=== PATIENT | female | born 1960 | race Caucasian/White ===

== ENCOUNTER 2018-03-17 15:10 | Emergency (ER) | payer MEDICARE, SELFPAY ==
[2018-03-17 15:19] VITALS: BP 195/83; PULSE 97; RESP 18; TEMP 36.6; O2SAT 97
[2018-03-17 15:43] LABS: Bilirubin Negative (Negative); Blood Trace-intact (Negative); Clarity Clear; Glucose Negative (Negative); Ketones Negative (Negative); Leukocyte Esterase Negative (Negative); Nitrite Negative (Negative); Specific Gravity 1.015 (1.005-1.025); Urobilinogen 0.2 EU/dL (Up TO 0.2)
[2018-03-17 15:53] LABS: Bacteria Rare HPF (Negative); C & S Indicated? No; Casts Negative LPF (Negative); Crystals Negative HPF (Negative); Epithelial Cells Rare HPF (Negative); Mucus Negative (Negative); Other Cells Negative (Negative); RBC 0-2 (0-2); WBC Negative HPF (0-5)
[2018-03-17 17:05] LABS: Abs Immature Grans 0.01 k/cumm (0.0-0.09); Absolute Basophil Count 0.02 k/cumm (0.0-0.2); Absolute Eosinophil Count 0.08 k/cumm (0.0-0.7); Absolute Lymphocyte Count 1.18 k/cumm (1.2-3.4); Absolute Neutrophil Count 3.98 k/cumm (1.2-6.7); Basophils % 0.4; Eosinophils % 1.4; HCT 42.4 % (36.0-46.0); Immature Grans % 0.2; Lymphocytes % 21.2; Mean Corpuscular Hemoglobin 29.7 pg (27.0-33.0); Mean Corpuscular Volume 89.8 fL (80-95); Mean Platelet Volume 9.2 fL (8.0-11.0); Monocytes % 5.4; Neutrophils % 71.4; Platelet Count 197 x1000/uL (130-400); RBC 4.72 m/cumm (4.00-5.20); RBC Distribution Width 12.4 % (11.7-14.6); White Blood Cell Count 5.57 k/cumm (4.4-10.8)
--- NOTE | 2018-03-17 17:25 | DI.RAD_ITS ---
SYMPTOMS/DIAGNOSIS: MID BACK PAIN ACUTE ABDOMINAL SERIES: Comparison is 06/18/17. The heart size and pulmonary vasculature are within normal limits. No focal consolidating infiltrates are seen. No effusions or pneumothoraces are identified. The appearance of the left lung base is unchanged compared to the prior examination and is likely chronic. There are surgical clips in the right upper quadrant of the abdomen, likely reflecting prior cholecystectomy. There is a moderate amount of retained stool in the colon. No evidence of bowel obstruction, organomegaly or pneumoperitoneum. There is an S-type scoliosis of the thoracolumbar spine. Degenerative changes are seen throughout the spine. Degenerative changes are seen at the hips, right greater than left. There are also degenerative changes at the sacroiliac joints, right greater than left. IMPRESSION: 1. No acute pulmonary process. 2. No evidence of an acute abdomen.
[2018-03-17 17:33] LABS: ALT 33 U/L (12-78); AST 22 U/L (15-37); Albumin 3.8 g/dL (3.4-5.0); Alkaline Phosphatase 106 U/L (46-116); BUN 10 mg/dL (7-18); Bilirubin, Total 0.3 mg/dL (0.2-1.0); CREATININE 0.86 mg/dL (0.55-1.02); Calcium 8.8 mg/dL (8.5-10.1); Chloride 102 mmol/L (98-107); Glucose 101 mg/dL (70-100); Lipase 59 U/L (73-393); Potassium 3.8 mmol/L (3.5-5.1); Sodium 139 mmol/L (136-145); Total Protein 7.1 g/dL (6.4-8.2)
--- NOTE | 2018-03-17 17:38 | DI.VRAD_ITS ---
EXAM: XR Abdomen 2 Views With XR Chest CLINICAL HISTORY: 57 years old, female; Pain; Abdominal pain; Generalized; Patient HX: Pain, mid back. TECHNIQUE: Frontal view of the chest, frontal view of the abdomen/pelvis and upright or decubitus view of the abdomen. COMPARISON: CR CHEST 2 VIEWS PA,LAT 06/18/2017 8:57 AM FINDINGS: Lungs: Minimal hazy density in the left lateral lung base, likely epicardiac fat. No consolidation. Unremarkable pulmonary vessels. Pleural space: No pleural effusion or pneumothorax. Heart: Unremarkable cardiac silhouette. Mediastinum: Unremarkable. Intraperitoneal space: No free air. Gastrointestinal tract: Unremarkable. No dilation. Organs: Status post cholecystectomy. Bones/joints: Degenerative spondylosis of the thoracic and lumbar spine. Mild scoliosis of the thoracic and lumbar spine. 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 IMPRESSION: 1. No acute abnormality. 2. Hazy density in the left lateral lung base, likely epicardiac fat. 3. Degenerative spondylosis of the thoracic and lumbar spine with mild scoliosis. Dictated and Authenticated by: Saúl Gann MD. Ordering:TIMOTHY RONDON MD
[2018-03-17] MEDS: Lidocaine 5% Patch 1 PATCH (18:02)
--- NOTE | 2018-03-17 18:09 | ED.GENADUL_ITS ---
Discharge Plan Disposition Patient Disposition: HOME Condition: Good Discharge Details Chief Complaint: Nk/Back Pain Clinical Impression: Back pain Primary Care Provider: Chanel Pastrana ED Provider: Tay Padilla Home Meds and New Rx's Prescriptions: Continue methadone 10 MG/5 ML solution 96 mg PO DAILY RF: 0 diltiazem HCl [Taztia XT] 240 MG capsule,extended release 24 hr 180 mg PO DAILY RF: 0 levothyroxine 25 MCG tablet 25 mcg PO DAILY RF: 0 mirtazapine 45 MG tablet 45 mg PO DAILY RF: 0 levothyroxine 200 MCG tablet 200 mcg PO DAILY RF: 0 zolpidem 5 MG tablet 5 mg PO HS RF: 0 mirtazapine 15 MG tablet 15 mg PO DAILY RF: 0 docusate sodium [Dulcolax Stool Softener (dss)] 100 MG capsule 200 mg PO DAILY RF: 0 simvastatin 10 MG tablet 10 mg PO DAILY RF: 0 promethazine [Phenadoz] 25 MG suppository 25 mg [place] PRN RF: 0 dexlansoprazole [Dexilant] 60 mg Capsule,Biphase Delayed Releas 1 tab PO DAILY RF: 0 lisinopril 2.5 mg Tablet 1 tab PO DAILY RF: 0 lorazepam 1 MG tablet 1 mg PO Q6H PRN PRNQty: 14 RF: 0 Discharge Instructions Instructions: Back Pain (ED) Additional Instructions: Feel free to return to the emergency department for any new or worsening symptoms. Otherwise you may continue to use your [id number] ibuprofen for discomfort and zdbn-[id number] lidocaine patches or cream if this also helps relieve your symptoms. If not improving in the next couple weeks also follow-up with your primary care provider for reassessment Referrals: Chanel Pastrana [Primary Care Provider] - (As needed for reassessment) Discharge Data Discharge Date/Time-TO BE ENTERED AT DEPARTURE: 03/17/18 18:20 Medical Decision Making Patient presenting to the emergency department for months of intermittent back pain. Initially she states that she thought it was her kidneys but is unsure. Patient does state that her mentally bowel movements seem to either help her back pain or worsen her back pain. Patient denies any fever chills, saddle anesthesia, severe significant changes in bowel movements including incontinence /constipation and patient denies any urinary retention or incontinence. Physical exam shows soft tissue tenderness to the left lumbar spine but otherwise unremarkable exam. Patient has no signs of emergent back pain including cauda equina, epidural abscess, major injury or trauma. We feel it is odd that bowel movements seem to change patient's discomfort given physical exam findings that are more suggestive of musculoskeletal nature of pain but plan to check labs and perform radiological imaging to rule out any other possible sources. Pending results patient given lidocaine patch otherwise she states that her discomfort level is tolerable at the moment After review of results of labs and x-ray which are unremarkable I feel that this truly is more muscular skeletal in nature and patient was encouraged to continue to use appropriate [id number] pain control including lidocaine patches. Patient was informed that she should follow-up with her primary care provider for reassessment as needed or if not improving and there is possible consideration of need of physical therapy to see if this also helps. After discussion of diagnosis and plan of care patient has no further needs, questions , or concerns and states clear understanding to return to the emergency department for any worsening symptoms. Lab Data Lab results reviewed: Yes I reviewed the patient's lab results. HPI General Date/Time Provider Initiated Documentation: 03/17/18 15:51 . Limitations to Documentation: no limitations . Information obtained by: patient . History of Present Illness 57 year old F presents to the emergency department with the chief complaint of back pain, described as moderate, with intensity rated at 4. Quality is described as aching and sharp, and is localized to the back and left. Patient started experiencing this month(s) (2) and it has been intermittent. Related Data Home Medications Medication Instructions Recorded Confirmed diltiazem HCl [Taztia XT] 180 mg PO DAILY tab-cap 01/17/13 03/17/18 levothyroxine 25 mcg PO DAILY tab-cap 01/17/13 03/17/18 levothyroxine 200 mcg PO DAILY tab-cap 01/17/13 03/17/18 methadone 96 mg PO DAILY 01/17/13 03/17/18 mirtazapine 15 mg PO DAILY tab-cap 01/17/13 03/17/18 mirtazapine 45 mg PO DAILY tab-cap 01/17/13 03/17/18 zolpidem 5 mg PO HS 01/17/13 03/17/18 docusate sodium [Dulcolax Stool 200 mg PO DAILY 08/13/13 10/05/18 Softener (dss)] simvastatin 10 mg PO DAILY 03/12/13 03/17/18 promethazine [Phenadoz] 25 mg [place] PRN 03/15/14 03/17/18 lorazepam 1 mg PO Q6H PRN PRN #14 tab 11/05/16 03/17/18 dexlansoprazole [Dexilant] 1 tab PO DAILY 03/17/18 03/17/18 lisinopril 1 tab PO DAILY 03/17/18 03/17/18 Previous Rx's Medication Instructions Recorded lorazepam 1 mg PO Q6H PRN PRN #14 tab 11/05/16 Allergies Allergy/AdvReac Type Severity Reaction Status Date / Time No Known Allergies Allergy Unverified 03/17/18 15:23 General Stated Complaint: Nk/Back Pain PAULINE: 3 Review of Systems Constitutional Denies chills and Denies fever(s) Cardiovascular Denies chest pain and Denies dyspnea on exertion Respiratory Denies dyspnea on exertion Gastrointestinal Denies abdominal pain, Denies change in bowel habits, Denies constipation, Denies diarrhea, Denies loose stools, Denies nausea, Denies vomiting and Reports other Genitourinary Denies difficulty voiding, Denies post void dribbling and Denies urinary incontinence Musculoskeletal Reports as per HPI and Reports back pain Neurologic Denies sensory deficit PFSH Medical History GERD (gastroesophageal reflux disease) (Chronic) Hypertension (Chronic) Hypothyroid (Chronic) Social History Smoking/Tobacco Use Status: Former Tobacco Use Exam Const General: cooperative and no acute distress Orientation: alert, awake and oriented x3 Neck Neck: normal visual inspection, full ROM and no meningeal signs Resp Effort & Inspection: normal respiratory effort Auscultation: clear to auscultation bilaterally Cardio Rate: regular rate Rhythm: regular rhythm Heart Sounds: S1 normal and S2 normal GI Palpation: no hepatosplenomegaly, no aortic enlargement, no masses and no pulsatile masses Back/Spine/Pelvis Back: no CVA tenderness Cervical Spine: normal cervical lordosis and No cervical spinal tenderness Thoracic/Lumbar Spine: pain with thoraco-lumbar ROM, paraspinal tenderness ( Left lower lumbar) and No lumbar spinal tenderness Pelvis: no pain with anterior-posterior compression, no pain with lateral compression, buttock tenderness on the right and sciatic notch tenderness on the right Neuro General: alert, awake and oriented x3 DTR's: Rt Patellar: 2+, Lt Patellar: 2+, Rt Ankle: 2+ and Lt Ankle: 2+ Extrem Right lower extremity: hip/thigh Details: normal to inspection, knee Details: normal to inspection and lower leg Details: normal to inspection Course Vital Signs Temperature 36.6 C 03/17/18 15:19 Pulse 97 H 03/17/18 15:19 Respiratory Rate 18 03/17/18 15:19 Blood Pressure 195/83 H 03/17/18 15:19 Pulse Oximetry 97 03/17/18 15:19 Temperature 36.6 C 03/17/18 15:19 Temperature Source Skin 03/17/18 15:19 Pulse 97 H 03/17/18 15:19 Respiratory Rate 18 03/17/18 15:19 Respiratory Effort Non-Labored 03/17/18 15:21 Blood Pressure 195/83 H 03/17/18 15:19 Pulse Oximetry 97 03/17/18 15:19 Pain Level 2 03/17/18 15:19 Lab/Test Results Lab/Test Results: Laboratory Tests Range/Units 03/17/18 03/17/18 03/17/18 15:33 16:58 16:58 WBC (4.4-10.8) k/cumm 5.57 RBC (4.00-5.20) m/cumm 4.72 Hgb (12.0-15.5) g/dL 14.0 Hct (36.0-46.0) % 42.4 MCV (80-95) fL 89.8 MCH (27.0-33.0) pg 29.7 MCHC (32.0-36.0) g/dL 33.0 RDW (11.7-14.6) % 12.4 Plt Count (130-400) x1000/uL 197 MPV (8.0-11.0) fL 9.2 Immature Gran % 0.2 Neutrophils % 71.4 Lymphocytes % 21.2 Monocytes % 5.4 Eosinophils % 1.4 Basophils % 0.4 Absolute Neutrophils (1.2-6.7) k/cumm 3.98 Absolute Lymphocytes (1.2-3.4) k/cumm 1.18 L Absolute Monocytes (0.11-0.7) k/cumm 0.30 Absolute Eosinophils (0.0-0.7) k/cumm 0.08 Absolute Basophils (0.0-0.2) k/cumm 0.02 Sodium (136-145) mmol/L 139 Potassium (3.5-5.1) mmol/L 3.8 Chloride (98-107) mmol/L 102 Carbon Dioxide (21.0-32.0) mmol/L 30.0 Anion Gap (3-11) mmol/L 7.0 BUN (7-18) mg/dL 10 Creatinine (0.55-1.02) mg/dL 0.86 Estimated GFR/1.73 m2 (mL/min/1.73m2) >= 60.00 Glucose (70-100) mg/dL 101 H Calcium (8.5-10.1) mg/dL 8.8 Total Bilirubin (0.2-1.0) mg/dL 0.3 AST (15-37) U/L 22 ALT (12-78) U/L 33 Alkaline Phosphatase (46-116) U/L 106 Total Protein (6.4-8.2) g/dL 7.1 Albumin (3.4-5.0) g/dL 3.8 Lipase (73-393) U/L 59 L Urine Color (Yellow) Yellow Urine Clarity Clear Urine pH (5-8) 6.0 Ur Specific [place] (1.005-1.025) 1.015 Urine Protein (Negative) mg/dL Negative Urine Ketones (Negative) mg/dL Negative Urine Blood (Negative) Trace-intact H Urine Nitrite (Negative) Negative Urine Bilirubin (Negative) Negative Urine Urobilinogen (Up TO 0.2) EU/dL 0.2 Ur Leukocyte Esterase (Negative) Negative Urine RBC (0-2) 0-2 Urine WBC (0-5) HPF Negative Ur Epithelial Cells (Negative) HPF Rare Urine Crystals (Negative) HPF Negative Urine Bacteria (Negative) HPF Rare Urine Casts (Negative) LPF Negative Urine Mucus (Negative) Negative Urine Other (Negative) Negative Ur Culture Indicated? No Urine Glucose (Negative) mg/dL Negative
[2018-03-17 18:17] VITALS: BP 120/80; PULSE 80; RESP 18; TEMP 36.8; O2SAT 96
== END 2018-03-17 18:20 | disposition home or self-care (01) ==
PROVIDERS: Emergency Provider Nurse Practitioner Family; PCP Internal Medicine
DX: M54.5 Low back pain (principal); I10 Essential (primary) hypertension
CPT/HCPCS: 36415; 80053; 83690; 99283; 74022; 81003; 81015; 85025

== ENCOUNTER 2019-07-21 07:55 | Emergency (ER) | payer MEDICARE, SELFPAY ==
[2019-07-21 08:01] VITALS: BP 162/78; PULSE 95; RESP 16; TEMP 36.8; O2SAT 93
--- NOTE | 2019-07-21 08:10 | W.ED.GENAD ---
Discharge Plan Disposition Patient Disposition: HOME Condition: Stable Discharge Details Chief Complaint: Orthopedic Clinical Impression: Distal radius fracture Primary Care Provider: Beena Patel ED Provider: Jared Redman Home Meds and New Rx's Prescriptions: Continued methadone 10 MG/5 ML solution 96 mg PO DAILY RF: 0 diltiazem HCl [Taztia XT] 240 MG capsule,extended release 24 hr 180 mg PO DAILY RF: 0 levothyroxine 25 MCG tablet 25 mcg PO DAILY RF: 0 mirtazapine 45 MG tablet 45 mg PO DAILY RF: 0 levothyroxine 200 MCG tablet 200 mcg PO DAILY RF: 0 zolpidem 5 MG tablet 5 mg PO HS RF: 0 mirtazapine 15 MG tablet 15 mg PO DAILY RF: 0 docusate sodium [Dulcolax Stool Softener (dss)] 100 MG capsule 200 mg PO DAILY RF: 0 simvastatin 10 MG tablet 10 mg PO DAILY RF: 0 promethazine [Phenadoz] 25 MG suppository 25 mg [place] PRN RF: 0 Dexilant 60 mg Capsule,Biphase Delayed Releas 1 tab PO DAILY RF: 0 lisinopril 2.5 mg Tablet 1 tab PO DAILY RF: 0 lorazepam 1 MG tablet 1 mg PO Q6H PRN PRNQty: 14 RF: 0 Discharge Instructions Instructions: Wrist Fracture in Adults (ED) Additional Instructions: As we discussed, we will treat you for a small fracture and have you follow-up in orthopedic clinic for recheck. Elevate the arm above the level of the heart to reduce pain and swelling. You may apply ice through the splint to reduce swelling and discomfort. Tylenol as needed for pain. Continue your regular medications. Please call the orthopedic office [phone] to establish a follow-up appointment time. Return to the ER for any acute concerns. Medical Decision Making 59-year-old female presents with right wrist pain, swelling, bruising after slip and fall on in which she fell on an outstretched hand. She does have distal radius tenderness, but normal motor and sensory testing. Ice applied to area, patient offered analgesia which she deferred. Referred for x-ray which I believe shows a lucency of distal radius consistent with acute fracture, but the x-ray was read negative by Dr. Carmelita Null. I discussed this with the patient and placed her in a volar plaster splint and will have her follow-up in orthopedics for recheck. HPI General Mode of arrival: ambulatory. Date/Time Provider Initiated Documentation: 07/21/19 08:03. Limitations to Documentation: no limitations. Information obtained by: patient. History of Present Illness 59 year old F presents to the emergency department with the chief complaint of Right wrist pain, bruising, swelling after fall , described as moderate, Quality is described as aching and dull, and is localized to the right and upper extremity. Patient reports no radiation. Patient started experiencing this day(s) and it has been constant. Rest improves symptom(s), Movement worsens symptoms . Patient notes no other symptoms. and other (No other injury, no weakness, no numbness.). Patient did receive the following treatments prior to arrival, other (Will bandage) Related Data Home Medications Medication Instructions Recorded Confirmed diltiazem HCl [Taztia XT] 180 mg PO DAILY tab-cap 01/17/13 07/21/19 levothyroxine 25 mcg PO DAILY tab-cap 01/17/13 07/21/19 levothyroxine 200 mcg PO DAILY tab-cap 01/17/13 07/21/19 methadone 96 mg PO DAILY 01/17/13 07/21/19 mirtazapine 15 mg PO DAILY tab-cap 01/17/13 07/21/19 mirtazapine 45 mg PO DAILY tab-cap 01/17/13 07/21/19 zolpidem 5 mg PO HS 01/17/13 07/21/19 docusate sodium [Dulcolax Stool 200 mg PO DAILY 01/23/13 07/21/19 Softener (dss)] simvastatin 10 mg PO DAILY 03/12/13 07/21/19 promethazine [Phenadoz] 25 mg [place] PRN 03/15/14 07/21/19 lorazepam 1 mg PO Q6H PRN PRN #14 tab 11/05/16 07/21/19 Dexilant 1 tab PO DAILY 03/17/18 07/21/19 lisinopril 1 tab PO DAILY 03/17/18 07/21/19 Previous Rx's Medication Instructions Recorded lorazepam 1 mg PO Q6H PRN PRN #14 tab 11/05/16 Allergies Allergy/AdvReac Type Severity Reaction Status Date / Time No Known Allergies Allergy Unverified 07/21/19 08:03 General Stated Complaint: Orthopedic PAULINE: 4 Review of Systems Narrative: No headache, neck, back, chest pain. She has otherwise been well. No changes to chronic medications. [facility] Medical History GERD (gastroesophageal reflux disease) (Chronic) Hypertension (Chronic) Hypothyroid (Chronic) Social History Smoking/Tobacco Use Status: Former Tobacco Use Alcohol Intake: never Drug use: Current Sobriety Do you feel safe in your relationship?: Yes Exam Narrative Exam Narrative: GEN: awake, alert, oriented 3. Pleasant, well groomed, interactive. HEAD: Normocephalic, atraumatic ENT: Mucous membranes moist, oropharynx unremarkable, External ear exam unremarkable EYES: PERRL, EOMI NECK: Full ROM, no WILMA, no menigismus, nontender, back is nontender without step-off or deformity. CHEST/RESP: Nontender, clear to auscultation bilateral, no wheeze/rhonchi/rales CARDIOVASCULAR: RRR, no murmur, rub howard. 2+ Rad pulse bilateral EXT: Full ROM, right wrist and hand swollen with ecchymosis. Most tender at right distal radius. Patient demonstrates normal motor function and making the okay sign, crossing long finger over index, touch thumb to pinky, sensation normal throughout. 2+ radial pulse bilateral upper extremity Neuro: Grossly normal neurologic exam, conversant, interactive. Psych: Speech fluent, thoughts congruent, affect normal Course Vital Signs Vital signs: Vital Signs Temperature 36.8 C 07/21/19 08:01 Pulse 95 H 07/21/19 08:01 Respiratory Rate 16 07/21/19 08:01 Blood Pressure 162/78 H 07/21/19 08:01 Pulse Oximetry 93 L 07/21/19 08:01 Temperature 36.8 C 07/21/19 08:01 Temperature Source Skin 07/21/19 08:01 Pulse 95 H 07/21/19 08:01 Respiratory Rate 16 07/21/19 08:01 Respiratory Effort Non-Labored 07/21/19 08:01 Blood Pressure 162/78 H 07/21/19 08:01 Blood Pressure Position Sitting 07/21/19 08:01 Pulse Oximetry 93 L 07/21/19 08:01 Oxygen Delivery Method Room Air 07/21/19 08:01 Oxygen Flow Rate 0 07/21/19 08:01 Pain Level 4 07/21/19 08:03
--- NOTE | 2019-07-21 08:22 | DI.RAD_ITS ---
EXAM: XR WRIST RT COMPLETE INDICATION: PAIN, BRUISING. COMPARISON: No exams were available for comparison TECHNIQUE: 2D digital imaging was performed. FINDINGS: There is a lucency seen at the articular aspect of the distal radius consistent with a nondisplaced f racture. There are mild degenerative changes. The navicular appears intact. IMPRESSION: Nondisplaced intraarticular fracture of the distal radius. The discrepancy with the preliminary report was discussed with Dr. Judy Parry of the Emergency Depar tment.
--- NOTE | 2019-07-21 08:39 | DI.VRAD_ITS ---
PROCEDURE INFORMATION: Exam: XR Right Wrist Exam date and time: 07/21/2019 8:24 AM Age: 59 years old Clinical indication: Other: Pain, bruising TECHNIQUE: Imaging protocol: XR Right wrist. Views: 3 or more views. COMPARISON: No relevant prior studies available. FINDINGS: Bones/joints: Degenerative changes in the radiocarpal joint There is no evidence of acute fracture.There is no evidence of malalignment or dislocation. Soft tissues: Soft tissue swelling of the wrist IMPRESSION: There is no evidence of acute fracture.There is no evidence of malalignment or dislocation. Dictated and Authenticated by: Carmelita Null MD. Ordering:CHEO Coleman MD
== END 2019-07-21 08:58 | disposition home or self-care (01) ==
PROVIDERS: Emergency Provider Emergency Medicine; PCP Nurse Practitioner
DX: S52.591A Other fractures of lower end of right radius, initial encounter for closed fracture (principal); W19.XXXA Unspecified fall, initial encounter; I10 Essential (primary) hypertension
CPT/HCPCS: 25600; 73110

== ENCOUNTER → 2019-08-06 11:18 | Outpatient (CLI) | payer MEDICARE, SELFPAY ==
--- NOTE | 2019-08-06 09:30 | DI.RAD_ITS ---
EXAM: XR WRIST RT COMPLETE CLINICAL HISTORY: f/u R distal radius frx TECHNIQUE: COMPARISON: XR WRIST RT COMPLETE from 07/21/2019 FINDINGS: Three views were obtained. There is history of prior fracture of the distal radius, minimal deformit y is noted, no gross interval change in appearance comparison with July 21. IMPRESSION:
== END ==
PROVIDERS: PCP Nurse Practitioner; Referring Provider Nurse Practitioner; Visit Provider Student in an Organized Health Care Education/Training Program
DX: S52.571A Other intraarticular fracture of lower end of right radius, initial encounter for closed fracture; W01.0XXA Fall on same level from slipping, tripping and stumbling without subsequent striking against object, initial encounter; I10 Essential (primary) hypertension
CPT/HCPCS: 99203; 99214; 73110; L3908

== ENCOUNTER 2019-11-04 21:28 | Emergency (ER) | payer MEDICARE, SELFPAY ==
[2019-11-04 21:32] VITALS: BP 141/91; PULSE 121; RESP 18; TEMP 37; O2SAT 95
--- NOTE | 2019-11-04 21:53 | ED.GENADUL_ITS ---
Discharge Plan Disposition Patient Disposition: HOME Condition: Good Discharge Details Chief Complaint: Cellulitis Clinical Impression: Rash Primary Care Provider: Beena Patel ED Provider: Christopher Doyle Home Meds and New Rx's Prescriptions: New clotrimazole [Lotrimin AF (clotrimazole)] 1 % cream 1 applic TP TID Qty: 12 RF: 0 Continued methadone 10 MG/5 ML solution 96 mg PO DAILY RF: 0 diltiazem HCl [Taztia XT] 240 MG capsule,extended release 24 hr 180 mg PO DAILY RF: 0 levothyroxine 25 MCG tablet 25 mcg PO DAILY RF: 0 mirtazapine 45 MG tablet 45 mg PO DAILY RF: 0 levothyroxine 200 MCG tablet 200 mcg PO DAILY RF: 0 zolpidem 5 MG tablet 5 mg PO HS RF: 0 mirtazapine 15 MG tablet 15 mg PO DAILY RF: 0 docusate sodium [Dulcolax Stool Softener (dss)] 100 MG capsule 200 mg PO DAILY RF: 0 simvastatin 10 MG tablet 10 mg PO DAILY RF: 0 promethazine [Phenadoz] 25 MG suppository 25 mg MN PRN RF: 0 Dexilant 60 mg Capsule,Biphase Delayed Releas 1 tab PO DAILY RF: 0 lisinopril 2.5 mg Tablet 1 tab PO DAILY RF: 0 lorazepam 1 MG tablet 1 mg PO Q6H PRN PRNQty: 14 RF: 0 Discharge Instructions Instructions: Dermatitis (ED) Additional Instructions: At this time it appears that you have a small rash likely secondary to a mild amount of skin breakdown secondary to the area, as well as very mild fungal infection for that area. Please apply the Lotrimin cream 3 times daily for the next 1 to 2 weeks. If you notice no improvement over the next 3 to 4 days I would recommend transitioning to a topical barrier cream like Butt paste or any normal diaper cream. If you notice any worsening of your symptoms, or any new symptoms such as spreading redness, increased discharge, vomiting, diarrhea, fever, chills, shortness of breath, chest pain, numbness, weakness, or fainting , please return immediately to the emergency department for reevaluation. Please follow up with your primary care provider as soon as possible for reassessment and reevaluation. As always, it was a pleasure participating in your medical care today. Referrals: Beena Patel [Primary Care Provider] - Medical Decision Making Pleasant 59-year-old female presents with a small lesion under her panel fold on her abdomen. Exam demonstrates a small amount of erythema 1 x 1 cm in diameter. Mild excoriations. Skin is dry. Suspect mild skin breakdown secondary to pannus fold area and potential very mild fungal irritation. No other lesions on the rest of the patient's abdomen or skin. No signs of abscess, cellulitis, or other concerning cutaneous abnormality. Will recommend barrier cream and Lotrimin cream. Discussed red flags for which to return. I have extensively reviewed the treatment plan and discharge instructions with the patient. I have addressed all patient concerns at this time. The patient was made aware of what symptoms to monitor for that would warrant a return to the emergency department. Discussed the plan with the patient, they demonstrate verbal understanding and agreement with our assessment and plan at this time. HPI General Date/Time Provider Initiated Documentation: 11/04/19 21:44 . HPI Narrative: 59-year-old female with a past medical history of GERD, hypertension, hypothyroidism, who presents today for evaluation of small rash. Patient states that under the crease of her pannus on her abdomen she noticed a small area of red, in conjunction with what she described as a tiny amount of drainage. She came to the ER for further evaluation. She states that she normally powders that area well to keep from any breakdown. She does admit to notable itchiness of the last few days for that area as well. She denies any symptoms of fever, chills, cough, nausea, vomiting, pain, chest pain or shortness of breath. No other complaints at this time. No other modifying factors. Related Data Home Medications Medication Instructions Recorded Confirmed diltiazem HCl [Taztia XT] 180 mg PO DAILY tab-cap 01/17/13 11/04/19 levothyroxine 25 mcg PO DAILY tab-cap 01/17/13 11/04/19 levothyroxine 200 mcg PO DAILY tab-cap 01/17/13 11/04/19 methadone 96 mg PO DAILY 01/17/13 11/04/19 mirtazapine 15 mg PO DAILY tab-cap 01/17/13 11/04/19 mirtazapine 45 mg PO DAILY tab-cap 01/17/13 11/04/19 zolpidem 5 mg PO HS 01/17/13 11/04/19 docusate sodium [Dulcolax Stool 200 mg PO DAILY 01/23/13 11/04/19 Softener (dss)] simvastatin 10 mg PO DAILY 03/12/13 11/04/19 promethazine [Phenadoz] 25 mg MN PRN 03/15/14 11/04/19 lorazepam 1 mg PO Q6H PRN PRN #14 tab 11/05/16 11/04/19 Dexilant 1 tab PO DAILY 03/17/18 11/04/19 lisinopril 1 tab PO DAILY 03/17/18 11/04/19 clotrimazole [Lotrimin AF 1 applic TP TID #12 gm 11/04/19 (clotrimazole)] Previous Rx's Medication Instructions Recorded lorazepam 1 mg PO Q6H PRN PRN #14 tab 11/05/16 clotrimazole [Lotrimin AF 1 applic TP TID #12 gm 11/04/19 (clotrimazole)] Allergies Allergy/AdvReac Type Severity Reaction Status Date / Time No Known Allergies Allergy Unverified 11/04/19 21:37 General Stated Complaint: Cellulitis PAULINE: 4 Review of Systems All systems reviewed & are unremarkable except as noted in HPI and below PFSH Medical History (Updated 11/04/19 @ 21:54 by Christopher Doyle DO) Depression (Chronic) GERD (gastroesophageal reflux disease) (Chronic) History of drug abuse (Acute) Hypertension (Chronic) Hypothyroid (Chronic) Irregular heart rhythm (Acute) Trouble in sleeping (Acute) Surgical History (Updated 11/04/19 @ 21:37 by Ewa Egan) History of thyroidectomy (Chronic) Social History Smoking/Tobacco Use Status: Former Tobacco Use Quit Date: 06/13/99 Alcohol Intake: never Drug use: Current Sobriety Substance use type: former substance user Current gender identity: female Do you feel safe at home: Yes Do you feel safe in your relationship?: Yes Exam Narrative Exam Narrative: 1.Const: Well-nourished, Well-developed, appearing stated age 2.Eyes: PERRL, no conjunctival injection, and symmetrical lids. 3.ENT: Atraumatic external nose and ears. Moist MM. Neck: Symmetric, trachea midline, No thyromegaly. 4.CVS: +S1/S2, No murmurs or gallops. Peripheral pulses 2+ and equal in all extremities. Brisk capillary refill in all extremities. 5.RESP: Unlabored respiratory effort. Clear to auscultation bilaterally. No wheezes rales or rhonchi 6.GI: Soft, Nontender/Nondistended, No hepatosplenomegaly. No guarding or rebound. 7.MSK: Normocephalic/Atraumatic, Extremities w/o deformity or ttp No cyanosis or clubbing, Normal movement of all extremities 8.Skin: Warm, Dry. There is a small 1 cm x 1 cm erythematous lesion under the patient's left lower abdominal pannus crease. Skin is notably dry irritated, slightly red with mild excoriations. It is not raised, it is well- circumscribed. No raised borders. Symptoms appear consistent with mild skin breakdown and potential mild cutaneous fungal infection. Negative Nikolsky sign. No large vesicles or bulla. No palpable purpura. No oral lesions. No mucosal lesions. No evidence of severe cellulitis. No evidence of vaccine preventable rash. No evidence of abscess, induration, drainage or discharge, or fluctuance. 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 Sensation grossly intact, no focal neurologic deficits. 10.Psych: (AAO) x3. Appropriate mood and affect Course Vital Signs Vital signs: Vital Signs Temperature 37.0 C 11/04/19 21:32 Pulse 121 H 11/04/19 21:32 Respiratory Rate 18 11/04/19 21:32 Blood Pressure 141/91 H 11/04/19 21:32 Pulse Oximetry 95 11/04/19 21:32 Temperature 37.0 C 11/04/19 21:32 Temperature Source Skin 11/04/19 21:32 Pulse 121 H 11/04/19 21:32 Respiratory Rate 18 11/04/19 21:32 Respiratory Effort Non-Labored 11/04/19 21:40 Blood Pressure 141/91 H 11/04/19 21:32 Pulse Oximetry 95 11/04/19 21:32 End Tidal Co2 0 11/04/19 21:32
== END 2019-11-04 22:05 | disposition home or self-care (01) ==
PROVIDERS: Emergency Provider Student in an Organized Health Care Education/Training Program; PCP Nurse Practitioner
DX: R21 Rash and other nonspecific skin eruption (principal); B36.9 Superficial mycosis, unspecified; I10 Essential (primary) hypertension
CPT/HCPCS: 99283

== ENCOUNTER 2019-12-30 23:10 | Emergency (ER) | payer MEDICARE, SELFPAY ==
[2019-12-30 23:11] VITALS: BP 185/96; PULSE 99; RESP 20; TEMP 36; O2SAT 96
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
--- NOTE | 2019-12-30 23:45 | DI.CT_ITS ---
EXAM: CT HEAD CERVICAL SPINE WO CLINICAL HISTORY: fall, right scalp lac, r/o fx/bleed. TECHNIQUE: Imaging Protocol: Axial computed tomography images with coronal and sagittal reformatted images were created and reviewed COMPARISON: No exams were available for comparison FINDINGS: CT Head: Ventricles and Extra axial spaces: Normal in size and morphology for the patient's age. Hemorrhage: None. Cerebral parenchyma: Normal. Midline shift: None. Brainstem/Cerebellum: Normal. Calvarium: Normal. Visualized Paranasal sinuses/Mastoids: Clear. Soft Tissues: There is a laceration overlying the right frontal parietal skull. CT Cervical Spine: Bones: No acute fracture or subluxation. Multilevel degenerative changes are seen in the spine. Soft Tissues: Unremarkable. Lung Apices: Clear. IMPRESSION: 1. No acute intracranial process. 2. Scalp laceration overlying the right frontal parietal skull. 3. No acute fracture or subluxation in the cervical spine. RADIATION DOSE DELIVERED: Total DLP DATA REPOSITORY: All CT scans at this facility are submitted to the National Radiology Data Registry (NRDR) Dose Index Registry (DIR) with the [employer] ([employer]). RADIATION OPTIMIZATION: All CT scans at this facility use at least one of these dose optimization te chniques: automated exposure control; mA and/or kV adjustment per patient size (includes targeted exa ms where dose is matched to clinical indication); or iterative reconstruction.
--- NOTE | 2019-12-31 00:05 | DI.VRAD_ITS ---
PROCEDURE INFORMATION: Exam: CT Head Without Contrast Exam date and time: 12/30/2019 11:31 PM Age: 59 years old Clinical indication: Injury or trauma; Initial encounter; Consciousness not specified; Without residual foreign body; Blunt trauma; Injury date: 12/30/19; Injury details: Fall with laceration to R side of scalp TECHNIQUE: Imaging protocol: Computed tomography of the head without contrast. Radiation optimization: All CT scans at this facility use at least one of these dose optimization techniques: automated exposure control; mA and/or kV adjustment per patient size (includes targeted exams where dose is matched to clinical indication); or iterative reconstruction. COMPARISON: No relevant prior studies available. FINDINGS: Brain: Normal. No hemorrhage. Unremarkable white matter. No mass effect. Ventricles: Normal. No ventriculomegaly. Bones/joints: Unremarkable. No acute fracture. Sinuses: Visualized sinuses are unremarkable. No fluid levels. Mastoid air cells: Visualized mastoid air cells are well aerated. Soft tissues: A laceration is seen overlying the right frontoparietal skull. IMPRESSION: Scalp laceration overlying the right frontoparietal skull. No acute intracranial abnormality. PROCEDURE INFORMATION: Exam: CT Cervical Spine Without Contrast Exam date and time: 12/30/2019 11:31 PM Age: 59 years old Clinical indication: Injury or trauma; Initial encounter; Consciousness not specified; Without residual foreign body; Blunt trauma; Injury date: 12/30/19; Injury details: Fall with laceration to R side of scalp TECHNIQUE: Imaging protocol: Computed tomography images of the cervical spine without contrast. Radiation optimization: All CT scans at this facility use at least one of these dose optimization techniques: automated exposure control; mA and/or kV adjustment per patient size (includes targeted exams where dose is matched to clinical indication); or iterative reconstruction. COMPARISON: No relevant prior studies available. FINDINGS: Vertebrae: No acute fracture. Normal alignment. Discs/Spinal canal/Neural foramina: No significant disc protrusion. No severe spinal canal stenosis. No significant neural foraminal narrowing. Soft tissues: Unremarkable. Lungs: Lung apices are normal. IMPRESSION: No acute findings. Dictated and Authenticated by: Mikala Dozier MD. Ordering:ADELA White MD
[2019-12-31] MEDS: Acetaminophen 500 MG TAB 1000 MG PO (01:02)
[2019-12-31 01:06] VITALS: BP 155/90; PULSE 90; RESP 20; TEMP 36; O2SAT 96
== END 2019-12-31 01:05 | disposition home or self-care (01) ==
LOC: ER 12-31 01:11
PROVIDERS: Emergency Provider Student in an Organized Health Care Education/Training Program; PCP Nurse Practitioner
DX: S01.01XA Laceration without foreign body of scalp, initial encounter (principal); S06.0X0A Concussion without loss of consciousness, initial encounter; W19.XXXA Unspecified fall, initial encounter; R11.0 Nausea; I10 Essential (primary) hypertension
CPT/HCPCS: 12002; 90471; 99284; 70450; 72125; 99283

== ENCOUNTER 2020-01-06 15:00 | Emergency (ER) | payer MEDICARE, SELFPAY ==
[2020-01-06 15:07] VITALS: BP 150/58; PULSE 107; RESP 18; TEMP 37; O2SAT 95
--- NOTE | 2020-01-06 15:15 | DI.CT_ITS ---
EXAM: CT HEAD WO CLINICAL HISTORY: R frontal trauma, headache and vision changes. TECHNIQUE: Imaging Protocol: Axial computed tomography images with coronal and sagittal reformatted images were created and reviewed COMPARISON: No exams were available for comparison FINDINGS: Ventricles and Extra axial spaces: Normal in size and morphology for the patient's age. Hemorrhage: None. Cerebral parenchyma: No significant atrophy. No significant white matter changes. Midline shift: None. Brainstem/Cerebellum: Normal. Calvarium: Normal. Mild right frontal scalp swelling Visualized Paranasal sinuses/Mastoids: Clear. IMPRESSION: Scalp wound. No acute intracranial abnormality. RADIATION DOSE DELIVERED: Total DLP Total DLP DATA REPOSITORY: All CT scans at this facility are submitted to the National Radiology Data Registry (NRDR) Dose Index Registry (DIR) with the [employer] ([employer]). RADIATION OPTIMIZATION: All CT scans at this facility use at least one of these dose optimization te chniques: automated exposure control; mA and/or kV adjustment per patient size (includes targeted exa ms where dose is matched to clinical indication); or iterative reconstruction.
--- NOTE | 2020-01-06 15:19 | W.ED.GENAD ---
Discharge Plan Disposition Patient Disposition: HOME Condition: Stable Discharge Details Chief Complaint: EyeProblem Clinical Impression: Concussion, Removal of monico Primary Care Provider: Beena Patel ED Provider: Jared Redman Home Meds and New Rx's Prescriptions: Continued methadone 10 MG/5 ML solution 96 mg PO DAILY RF: 0 diltiazem HCl [Taztia XT] 240 MG capsule,extended release 24 hr 180 mg PO DAILY RF: 0 levothyroxine 25 MCG tablet 25 mcg PO DAILY RF: 0 mirtazapine 45 MG tablet 45 mg PO DAILY RF: 0 levothyroxine 200 MCG tablet 200 mcg PO DAILY RF: 0 zolpidem 5 MG tablet 5 mg PO HS RF: 0 mirtazapine 15 MG tablet 15 mg PO DAILY RF: 0 docusate sodium [Dulcolax Stool Softener (dss)] 100 MG capsule 200 mg PO DAILY RF: 0 simvastatin 10 MG tablet 10 mg PO DAILY RF: 0 promethazine [Phenadoz] 25 MG suppository 25 mg NM PRN RF: 0 Dexilant 60 mg Capsule,Biphase Delayed Releas 1 tab PO DAILY RF: 0 lisinopril 2.5 mg Tablet 1 tab PO DAILY RF: 0 lorazepam 1 MG tablet 1 mg PO Q6H PRN PRNQty: 14 RF: 0 clotrimazole [Lotrimin AF (clotrimazole)] 1 % cream 1 applic TP TID Qty: 12 RF: 0 Discharge Instructions Instructions: Concussion (ED) Additional Instructions: We will ask our care management team to arrange an outpatient follow-up for you with [facility] eye care. May continue your regular medicines. Please use Tylenol if needed for aches, pains. Return for worsening headache, the development of vomiting, or any other acute concerns. Medical Decision Making This is a delightful 59-year-old female who had a fall with head trauma on December 29. She was repaired with [employer]. She states while bending over this morning she noticed some transient starlike changes to her right superolateral vision. They were not persistent and resolved by the time of evaluation here. She has mild persistent headache since the fall. No vomiting. She has been performing activities of daily living without difficulty. Visual acuity here: 20/70 visual acuity os/ou/od [facility] were removed from the patient's scalp. Must consider delayed intracranial hemorrhage and patient referred for repeat noncontrast CT scan of the head. CT images no acute findings, no right frontal scalp swelling. Most consistent with concussive symptoms. No visual field cut appreciated. We will arrange outpatient follow-up for her with [facility] eye care. She is stable and appropriate to discharge home. HPI General Mode of arrival: ambulatory. Date/Time Provider Initiated Documentation: 01/06/20 15:01. Limitations to Documentation: no limitations. Information obtained by: patient. History of Present Illness 59 year old F presents to the emergency department with the chief complaint of Right frontal trauma, headache, vision changes, described as mild, and is localized to the head and right. Patient reports no radiation. Patient started experiencing this day(s) and it has been intermittent. No relieving factors improve symptom(s), No exacerbating factors reported . Patient notes no other symptoms.. Patient did receive the following treatments prior to arrival, none Related Data Home Medications Medication Instructions Recorded Confirmed diltiazem HCl [Taztia XT] 180 mg PO DAILY tab-cap 01/17/13 01/06/20 levothyroxine 25 mcg PO DAILY tab-cap 01/17/13 01/06/20 levothyroxine 200 mcg PO DAILY tab-cap 01/17/13 01/06/20 methadone 96 mg PO DAILY 01/17/13 01/06/20 mirtazapine 15 mg PO DAILY tab-cap 01/17/13 01/06/20 mirtazapine 45 mg PO DAILY tab-cap 01/17/13 01/06/20 zolpidem 5 mg PO HS 01/17/13 01/06/20 docusate sodium [Dulcolax Stool 200 mg PO DAILY 01/23/13 01/06/20 Softener (dss)] simvastatin 10 mg PO DAILY 03/12/13 01/06/20 promethazine [Phenadoz] 25 mg NM PRN 03/15/14 01/06/20 lorazepam 1 mg PO Q6H PRN PRN #14 tab 11/05/16 01/06/20 Dexilant 1 tab PO DAILY 03/17/18 01/06/20 lisinopril 1 tab PO DAILY 03/17/18 01/06/20 clotrimazole [Lotrimin AF 1 applic TP TID #12 gm 11/04/19 01/06/20 (clotrimazole)] Previous Rx's Medication Instructions Recorded lorazepam 1 mg PO Q6H PRN PRN #14 tab 11/05/16 clotrimazole [Lotrimin AF 1 applic TP TID #12 gm 11/04/19 (clotrimazole)] Allergies Allergy/AdvReac Type Severity Reaction Status Date / Time No Known Allergies Allergy Unverified 01/06/20 15:17 General Stated Complaint: EyeProblem PAULINE: 3 Review of Systems Narrative: No recurrent injury. No fever. No vomiting. 6 systems reviewed and otherwise negative [facility] Medical History Depression (Chronic) GERD (gastroesophageal reflux disease) (Chronic) History of drug abuse (Acute) Hypertension (Chronic) Hypothyroid (Chronic) Irregular heart rhythm (Acute) Trouble in sleeping (Acute) Social History Smoking/Tobacco Use Status: Former Tobacco Use Quit Date: 06/13/99 Alcohol Intake: never Drug use: Current Sobriety Substance use type: former substance user Current gender identity: female Do you feel safe at home: Yes Do you feel safe in your relationship?: Yes Exam Narrative Exam Narrative: GEN: awake, alert, oriented 3. Pleasant, well groomed, interactive. HEAD: Normocephalic, healing right frontal scalp laceration ENT: Mucous membranes moist, oropharynx unremarkable, External ear exam unremarkable EYES: PERRL, EOMI. visual tavera intact to confrontation NECK: Full ROM, no WILMA, no menigismus CHEST/RESP: Nontender, clear to auscultation bilateral, no wheeze/rhonchi/rales CARDIOVASCULAR: RRR, no murmur, rub howard. 2+ Rad pulse bilateral EXT: Full ROM, no edema, no rash Neuro: Grossly normal neurologic exam, conversant, interactive. Psych: Speech fluent, thoughts congruent, affect normal Course Vital Signs Vital signs: Vital Signs Temperature 37 C 01/06/20 15:07 Pulse 107 H 01/06/20 15:07 Respiratory Rate 18 01/06/20 15:07 Blood Pressure 150/58 H 01/06/20 15:07 Pulse Oximetry 95 01/06/20 15:07 Temperature 37 C 01/06/20 15:07 Pulse 107 H 01/06/20 15:07 Respiratory Rate 18 01/06/20 15:07 Respiratory Effort 01/06/20 15:10 Blood Pressure 150/58 H 01/06/20 15:07 Pulse Oximetry 95 01/06/20 15:07 Oxygen Delivery Method Room Air 01/06/20 15:07 Oxygen Flow Rate 0 01/06/20 15:07 Pain Level 0 01/06/20 15:07
--- NOTE | 2020-01-06 15:27 | NUR.NOTE ---
Referral faxed to [facility].Nursing Note:
--- NOTE | 2020-01-06 15:43 | DI.VRAD_ITS ---
PROCEDURE INFORMATION: Exam: CT Head Without Contrast Exam date and time: 01/06/2020 3:19 PM Age: 59 years old Clinical indication: RT frontal trauma, headache and vision changes TECHNIQUE: Imaging protocol: Computed tomography of the head without contrast. COMPARISON: CT HEAD CERVICAL SPINE WO 12/30/2019 11:19 PM FINDINGS: Brain: Age-related involutional changes and chronic microvascular ischemic disease. No evidence for acute transcortical infarct. No mass effect or midline shift. No extra-axial collection. No acute intracranial hemorrhage. Basal cisterns are patent. Ventricles: Normal. No ventriculomegaly. Bones/joints: No acute calvarial fracture. Sinuses: Visualized sinuses are unremarkable. No fluid levels. Mastoid air cells: Visualized mastoid air cells are well aerated. Soft tissues: Right frontal scalp swelling with suggestion of a laceration. No radiopaque foreign body. IMPRESSION: 1. Right frontal scalp swelling with suggestion of a laceration. No radiopaque foreign body. No acute calvarial fracture. 2. No evidence for acute transcortical infarct, acute intracranial hemorrhage, or mass effect. Dictated and Authenticated by: Erick Mack MD. Ordering:CHEO Coleman MD
[2020-01-06 16:00] VITALS: BP 131/68; PULSE 89; RESP 18; O2SAT 95
== END 2020-01-06 16:04 | disposition home or self-care (01) ==
PROVIDERS: Emergency Provider Emergency Medicine; PCP Nurse Practitioner
DX: S01.01XD Laceration without foreign body of scalp, subsequent encounter (principal); S06.0X0D Concussion without loss of consciousness, subsequent encounter; W19.XXXD Unspecified fall, subsequent encounter; H53.8 Other visual disturbances; G44.309 Post-traumatic headache, unspecified, not intractable; Z48.02 Encounter for removal of sutures; I10 Essential (primary) hypertension
CPT/HCPCS: 99284; 70450; 99283

== ENCOUNTER 2020-04-04 12:08 | Emergency (ER) | payer MEDICARE, SELFPAY ==
[2020-04-04 12:14] VITALS: BP 166/97; PULSE 105; RESP 20; TEMP 36.5; O2SAT 96
--- NOTE | 2020-04-04 12:15 | DI.US_ITS ---
EXAM: US LOWER EXTREMITY VENOUS RT CLINICAL HISTORY: R leg pain, r/o dvt. TECHNIQUE: Lower extremity venous ultrasound performed using grayscale, color-flow, and spectral Dop pler analysis. COMPARISON: No exams were available for comparison FINDINGS: The common femoral, femoral and popliteal veins demonstrate normal compressibility, augmentation, and color Doppler. The posterior tibial veins are patent. The saphenous vein appears free of thrombus. No Koenig's cyst or hematoma is seen. IMPRESSION: No evidence of DVT. DATA REPOSITORY:
--- NOTE | 2020-04-04 13:37 | W.ED.GENAD ---
Discharge Plan Disposition Patient Disposition: HOME Condition: Stable Discharge Details Clinical Impression: Cellulitis of leg, right Primary Care Provider: Beena Patel ED Provider: Jud Rodríguez Home Meds and New Rx's Prescriptions: New cephalexin [Keflex] 500 mg capsule 500 mg PO QID 7 Days Qty: 28 RF: 0 Continued methadone 10 MG/5 ML solution 96 mg PO DAILY RF: 0 diltiazem HCl [Taztia XT] 240 MG capsule,extended release 24 hr 180 mg PO DAILY RF: 0 levothyroxine 25 MCG tablet 25 mcg PO DAILY RF: 0 mirtazapine 45 MG tablet 45 mg PO DAILY RF: 0 levothyroxine 200 MCG tablet 200 mcg PO DAILY RF: 0 zolpidem 5 MG tablet 5 mg PO HS RF: 0 mirtazapine 15 MG tablet 15 mg PO DAILY RF: 0 docusate sodium [Dulcolax Stool Softener (dss)] 100 MG capsule 200 mg PO DAILY RF: 0 simvastatin 10 MG tablet 10 mg PO DAILY RF: 0 promethazine [Phenadoz] 25 MG suppository 25 mg [place] PRN RF: 0 Dexilant 60 mg Capsule,Biphase Delayed Releas 1 tab PO DAILY RF: 0 lisinopril 2.5 mg Tablet 1 tab PO DAILY RF: 0 lorazepam 1 MG tablet 1 mg PO Q6H PRN PRNQty: 14 RF: 0 clotrimazole [Lotrimin AF (clotrimazole)] 1 % cream 1 applic TP TID Qty: 12 RF: 0 Discharge Instructions Instructions: Cellulitis (ED) Additional Instructions: Drink plenty of fluids and get plenty of rest. Alternate tylenol and motrin as needed and directed for pain. Take the antibiotics until finished. Be sure to watch salt intake in your diet and wear compression stockings and keep your legs elevated as much as possible to help with leg swelling. Follow-up with your primary care doctor in 1 week. Return to the emergency department with any worsening or new concerning symptoms. Discharge Data Discharge Date/Time-TO BE ENTERED AT DEPARTURE: 04/04/20 14:05 Discharge Physician: guerita Medical Decision Making 59-year-old female with a history of morbid obesity and chronic bilateral lower extremity edema presents with right leg pain and erythema since this morning. Patient is hemodynamically stable. She appears nontoxic. She was referred for right leg ultrasound which was negative for DVT. There appears to be a fairly well demarcated area of erythema to the right anterior lower leg which appears right above the sock line. There is no abscess or rash. Appears consistent with likely early cellulitis. Will start Keflex. Skin markings placed at lower edge of erythema. Advised to follow up with the primary care doctor for re-evaluation. Usual and customary return precautions given prior to discharge. Medical Records Medical records reviewed: Yes I reviewed the patient's medical records. Imaging Data Radiologic Study: Radiologist's impression: US LOWER EXTREMITY VENOUS RT CLINICAL HISTORY: R leg pain, r/o dvt. TECHNIQUE: Lower extremity venous ultrasound performed using grayscale, color-flow, and spectral Doppler analysis. COMPARISON: No exams were available for comparison FINDINGS: The common femoral, femoral and popliteal veins demonstrate normal compressibility, augmentation, and color Doppler. The posterior tibial veins are patent. The saphenous vein appears free of thrombus. No Koenig's cyst or hematoma is seen. IMPRESSION: No evidence of DVT. HPI General Mode of arrival: ambulatory. Date/Time Provider Initiated Documentation: 04/04/20 12:13. Limitations to Documentation: no limitations. Information obtained by: patient. HPI Narrative: Patient is a 59-year-old female who presents to the ED with complaint of right leg pain, redness and swelling since this morning. Patient states she has swelling in both legs chronically but states she awoke this morning to noting redness to her right lower leg. She denies any known injury, bite, exposure, new soaps, lotions, detergents, recent travel or recent known sick contacts. She denies any fever, chest pain or shortness of breath. Related Data Home Medications Medication Instructions Recorded Confirmed diltiazem HCl [Taztia XT] 180 mg PO DAILY tab-cap 01/17/13 04/04/20 levothyroxine 25 mcg PO DAILY tab-cap 01/17/13 04/04/20 levothyroxine 200 mcg PO DAILY tab-cap 01/17/13 04/04/20 methadone 96 mg PO DAILY 01/17/13 04/04/20 mirtazapine 15 mg PO DAILY tab-cap 01/17/13 04/04/20 mirtazapine 45 mg PO DAILY tab-cap 01/17/13 04/04/20 zolpidem 5 mg PO HS 01/17/13 04/04/20 docusate sodium [Dulcolax Stool 200 mg PO DAILY 01/23/13 04/04/20 Softener (dss)] simvastatin 10 mg PO DAILY 03/12/13 04/04/20 promethazine [Phenadoz] 25 mg [place] PRN 03/15/14 04/04/20 lorazepam 1 mg PO Q6H PRN PRN #14 tab 11/05/16 04/04/20 Dexilant 1 tab PO DAILY 03/17/18 04/04/20 lisinopril 1 tab PO DAILY 03/17/18 04/04/20 clotrimazole [Lotrimin AF 1 applic TP TID #12 gm 11/04/19 04/04/20 (clotrimazole)] cephalexin [Keflex] 500 mg PO QID 7 Days #28 cap 04/04/20 Previous Rx's Medication Instructions Recorded lorazepam 1 mg PO Q6H PRN PRN #14 tab 11/05/16 clotrimazole [Lotrimin AF 1 applic TP TID #12 gm 11/04/19 (clotrimazole)] cephalexin [Keflex] 500 mg PO QID 7 Days #28 cap 04/04/20 Allergies Allergy/AdvReac Type Severity Reaction Status Date / Time No Known Allergies Allergy Unverified 04/04/20 12:19 General Stated Complaint: Cellulitis PAULINE: 3 Review of Systems All systems reviewed & are unremarkable except as noted in HPI and below Constitutional Constitutional: Reports as per HPI, Denies chills and Denies fever(s) Eyes Eyes: Denies blurry vision ENT Ears, Nose, Mouth, and Throat: Denies dizziness, Denies sore throat and Denies throat swelling Cardiovascular Cardiovascular: Denies chest pain and Denies dyspnea Respiratory Respiratory: Denies cough and Denies dyspnea Gastrointestinal Gastrointestinal: Denies abdominal pain, Denies diarrhea and Denies vomiting Genitourinary Genitourinary: Denies hematuria and Denies dysuria Musculoskeletal Musculoskeletal: Denies back pain and Denies numbness Integumentary/Breasts Skin/Breast: Denies lesions and Denies rash Neurologic Neurologic: Denies dizziness, Denies localized weakness and Denies numbness Allergic/Immunologic Allergic/Immunologic: Denies throat swelling [facility] Medical History (Updated 04/04/20 @ 13:39 by Jud Rodríguez DO) Depression GERD (gastroesophageal reflux disease) History of drug abuse Hypertension Hypothyroid Irregular heart rhythm Trouble in sleeping Surgical History History of thyroidectomy Social History Smoking/Tobacco Use Status: Former Tobacco Use Quit Date: 06/13/99 Alcohol Intake: never Drug use: Current Sobriety Substance use type: former substance user Current gender identity: female Do you feel safe at home: Yes Do you feel safe in your relationship?: Yes Exam Const General: cooperative and no acute distress Orientation: alert, awake and oriented x3 HENMT Head: normal to inspection Face and sinus: normal facial exam Eyes General: appearance normal, both eyes and all related structures EOM: EOM intact bilaterally Neck Neck: normal visual inspection and No submandibular swelling Lymphatic: no lymphadenopathy noted Chest Chest: normal inspection of the chest and no tenderness Resp Effort & Inspection: normal respiratory effort and able to speak in complete sentences Auscultation: clear to auscultation bilaterally Cardio Rate: regular rate Rhythm: regular rhythm GI Inspection: normal to inspection Palpation: soft, not firm, not rigid and nontender Auscultation: normal bowel sounds Skin General skin exam: no rashes or lesions noted Neuro General: patient alert, patient awake and patient oriented x3 Cognition: normal cognition Speech: speech normal Motor: muscle tone normal throughout Sensory Exam: no sensory deficits noted Extrem General: full ROM, capillary refill normal and no calf tenderness bilaterally Upper/lower leg/hip images: 1. Fairly well demarcated line of erythema and tenderness noted to distal anterior lower leg. No induration, fluctuance, drainage. Other: Bilateral lower extremity nonpitting edema with minimal erythema. DP/PT pulses intact. No bilateral calf tenderness. Psych Appearance: grossly normal Mental Status: mental status grossly normal Speech and Movement: speech and movement normal Affect: normal affect Course Vital Signs Vital signs: Vital Signs Temperature 97.7 F 04/04/20 12:14 Pulse 105 H 04/04/20 12:14 Respiratory Rate 20 04/04/20 12:14 Blood Pressure 166/97 H 04/04/20 12:14 Pulse Oximetry 96 04/04/20 12:14 Temperature 97.7 F 04/04/20 12:14 Temperature Source Skin 04/04/20 12:14 Pulse 105 H 04/04/20 12:14 Respiratory Rate 20 04/04/20 12:14 Respiratory Effort Non-Labored 04/04/20 12:19 Blood Pressure 166/97 H 04/04/20 12:14 Blood Pressure Position Sitting 04/04/20 12:14 Pulse Oximetry 96 04/04/20 12:14 Oxygen Delivery Method Room Air 04/04/20 12:14 Oxygen Flow Rate 0 04/04/20 12:14 Pain Level 1 04/04/20 12:14
[2020-04-04 13:45] VITALS: BP 124/72; PULSE 93; RESP 16; O2SAT 97
== END 2020-04-04 14:05 | disposition home or self-care (01) ==
PROVIDERS: Emergency Provider Physician Assistant; PCP Nurse Practitioner
DX: L03.115 Cellulitis of right lower limb (principal); E66.01 Morbid (severe) obesity due to excess calories; Z68.41 Body mass index [BMI] 40.0-44.9, adult; I10 Essential (primary) hypertension
CPT/HCPCS: 99284; 93971; 99285

== ENCOUNTER 2021-08-03 02:37 | Outpatient (CLI) | payer MEDICARE, SELFPAY ==
[2021-08-03 13:46] LABS: Abs Immature Grans 0.01 10^3/uL (0.0-0.06); Absolute Basophil Count 0.03 10^3/uL (0.0-0.2); Absolute Eosinophil Count 0.23 10^3/uL (0.0-0.7); Absolute Monocyte Count 0.47 10^3/uL (0.1-0.8); Absolute Neutrophil Count 3.25 10^3/uL (1.2-6.7); Basophils % 0.5; Eosinophils % 3.8; HCT 41.3 % (36.0-46.0); HGB 12.9 g/dL (11.2-15.7); Immature Grans % 0.2; Lymphocytes % 33.4; MCH 28.5 pg (27.0-33.0); MCHC 31.2 % (32.0-36.0); MCV 91.2 fL (80-95); MPV 8.9 fL (8.0-11.0); Monocytes % 7.8; Neutrophils % 54.3; Nucleated RBC 0 %; Platelet Count 196 10^3/uL (130-400); RBC 4.53 10^6/uL (3.93-5.22); RDW 12.6 % (11.7-14.6); RDW-SD 41.9 fL; WBC 5.99 10^3/uL (4.4-10.8)
[2021-08-03 15:15] LABS: Anion Gap 9.2 mmol/L (3-11); BUN 11 mg/dL (7-18); CO2 29.8 mmol/L (21.0-32.0); CREATININE 0.9 mg/dL (0.55-1.02); Chloride 104 mmol/L (98-107); Glucose 78 mg/dL (74-106); Sodium 143 mmol/L (136-145); TSH 0.85 uIU/mL (0.36-3.74)
== END 2021-08-03 02:38 | disposition home or self-care (01) ==
LOC: LBO 02:37
PROVIDERS: PCP Nurse Practitioner; Visit Provider Nurse Practitioner Adult Health
DX: I10 Essential (primary) hypertension (principal); E03.9 Hypothyroidism, unspecified
CPT/HCPCS: 36415; 80048; 84443; 85025

== ENCOUNTER 2022-07-14 17:28 | Outpatient (CLI) | payer MEDICARE, SELFPAY ==
--- NOTE | 2022-07-14 | DI.RAD_ITS ---
Exam(s) XR FOOT LT COMPLETE EXAM: XR FOOT LT COMPLETE CLINICAL HISTORY: pain in right foot; question heel spurs vs. plantar fasiitis vs. arthritis. TECHNIQUE: 2D digital imaging was performed. Three views. COMPARISON: No exams were available for comparison FINDINGS: BONES: No acute fracture is present. No bony destructive lesion is seen. Plantar calcaneal spur. Sp urring at the Achilles insertion. JOINTS: No dislocation present. No significant degenerative changes. SOFT TISSUE: Normal. IMPRESSION: Heel spurs. DATA REPOSITORY: RADIATION DOSE DELIVERED:
--- NOTE | 2022-07-14 | DI.RAD_ITS ---
Exam(s) XR FOOT RT COMPLETE EXAM: XR FOOT RT COMPLETE CLINICAL HISTORY: pain in right foot; question heel spurs vs. plantar fasiitis vs. arthritis. TECHNIQUE: 2D digital imaging was performed. Three views. COMPARISON: CR,XR XR FOOT LT COMPLETE from 07/14/2022 FINDINGS: BONES: No acute fracture is present. No bony destructive lesion is seen. There is a moderate-sized p lantar calcaneal spur. In these a fight is also seen at the Achilles insertion. JOINTS: No dislocation present. SOFT TISSUE: Normal. IMPRESSION: Heel spurs. DATA REPOSITORY: RADIATION DOSE DELIVERED:
--- NOTE | 2022-07-14 17:38 | DI.VRAD_ITS ---
PROCEDURE INFORMATION: Exam: XR Left Foot Exam date and time: 07/14/2022 5:21 PM Age: 61 years old Clinical indication: Pain; Foot; Left TECHNIQUE: Imaging protocol: Radiologic exam of the Left foot. Views: 3 or more views. COMPARISON: No relevant prior studies available. FINDINGS: Bones/joints: Plantar and Achilles calcaneal spurs. 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 Soft tissues: Normal. IMPRESSION: No acute findings Dictated and Authenticated by: Marybeth Baird MD. Ordering:NATALIA Garrett MD
--- NOTE | 2022-07-14 17:39 | DI.VRAD_ITS ---
PROCEDURE INFORMATION: Exam: XR Right Foot Exam date and time: 07/14/2022 5:23 PM Age: 61 years old Clinical indication: Pain; Foot; Right TECHNIQUE: Imaging protocol: Radiologic exam of the Right foot. Views: 3 or more views. COMPARISON: US LOWER EXTREMITY VENOUS RT 04/04/2020 12:53 PM FINDINGS: Bones/joints: Plantar and Achilles calcaneal spurs. Soft tissues: Normal. IMPRESSION: No acute findings Dictated and Authenticated by: Marybeth Baird MD. Ordering:NATALIA Garrett MD
== END 2022-07-14 17:48 ==
LOC: DI 17:28
PROVIDERS: PCP Nurse Practitioner; Visit Provider Physician Assistant Medical
DX: M77.32 Calcaneal spur, left foot (principal); M77.31 Calcaneal spur, right foot
CPT/HCPCS: 73630

== ENCOUNTER 2022-07-14 18:54 | Outpatient (REF) | payer MEDICARE, SELFPAY ==
[2022-07-14 22:33] LABS: Hemoglobin A1C 5.8 % (<5.7)
== END 2022-07-14 18:55 | disposition home or self-care (01) ==
LOC: LBN 18:54
PROVIDERS: Physician Assistant Medical; PCP Nurse Practitioner; Visit Provider Clinical Nurse Specialist
DX: G62.9 Polyneuropathy, unspecified (principal)
CPT/HCPCS: 83036

== ENCOUNTER 2022-08-16 14:56 | Emergency (ER) | payer MEDICARE, SELFPAY ==
[2022-08-16 15:16] VITALS: BP 155/74; PULSE 97; RESP 22; TEMP 36.8; O2SAT 96
--- NOTE | 2022-08-16 15:48 | ED.GENADUL_ITS ---
Discharge Plan Disposition Patient Disposition: Home Condition: Stable Discharge Details Clinical Impression: Cellulitis Primary Care Provider: Beena Patel ED Provider: Johana Aldrich Home Meds and New Rx's Prescriptions: New cephalexin 500 mg tablet 500 mg PO QID Qty: 28 0RF Continued methadone 10 MG/5 ML solution 98 mg PO DAILY diltiazem HCl [Taztia XT] 240 MG capsule,extended release 24 hr 180 mg PO DAILY levothyroxine 25 MCG tablet 25 mcg PO DAILY mirtazapine 45 MG tablet 45 mg PO DAILY levothyroxine 200 MCG tablet 200 mcg PO DAILY zolpidem 5 MG tablet 5 mg PO HS mirtazapine 15 MG tablet 15 mg PO DAILY docusate sodium [Dulcolax Stool Softener (dss)] 100 MG capsule 200 mg PO DAILY simvastatin 10 MG tablet 10 mg PO DAILY promethazine [Phenadoz] 25 MG suppository 25 mg [place] PRN dexlansoprazole [Dexilant] 60 mg Capsule,Biphase Delayed Releas 1 tab PO DAILY lisinopril 2.5 mg Tablet 1 tab PO DAILY lorazepam 1 MG tablet 1 mg PO Q6H PRN PRNQty: 14 0RF Discharge Instructions Instructions: Cellulitis (ED) Additional Instructions: Take antibiotic as directed even if you feel better Apply topical cream provided to area 3 times a day after washing well patting dry gently. Keep area clean and dry Referrals: Beena Patel [Primary Care Provider] - Discharge Data Discharge Date/Time-TO BE ENTERED AT DEPARTURE: 08/16/22 16:50 Medical Decision Making <Johana Aldrich NP - Last Filed: 08/16/22 21:49> This is a 62-year-old female patient no significant past medical history was had a fungal infection in her abdominal fold now developed an area that looks like cellulitis. She has had no fever or systemic symptoms. She has no known drug allergies so feel it is reasonable to treat this outpatient with cephalexin and will provide a compound paste to to applied to the area. She will monitor closely and return for new or worsening symptoms I see no need for lab work at this time and on evaluation there is no area consistent with an abscess. <Jud Rodríguez DO - Last Filed: 08/24/22 00:29> This is a 62-year-old female patient no significant past medical history was had a fungal infection in her abdominal fold now developed an area that looks like cellulitis. She has had no fever or systemic symptoms. She has no known drug allergies so feel it is reasonable to treat this outpatient with cephalexin and will provide a compound paste to to applied to the area. She will monitor closely and return for new or worsening symptoms I see no need for lab work at this time and on evaluation there is no area consistent with an abscess. Attending physician note: Patient not seen or examined by me but I was available for consult if needed. Jud Rodríguez DO HPI <Johana Aldrich NP - Last Filed: 08/16/22 21:49> General Mode of arrival: ambulatory . Date/Time Provider Initiated Documentation: 08/16/22 15:18 . Limitations to Documentation: no limitations . Information obtained by: patient . HPI Narrative: This is a 62-year-old female patient with history of hypertension hypothyroidism prediabetes history of fungal infections who reports that 2 days ago she started noticing itching discomfort in her abdominal fold. Today she she states that she noticed there was a reddened area. No fever chills or other complaints. She has been using nystatin powder. She has had similar history in the past. She denies any other recent illnesses and has been in her usual state of health otherwise Related Data Home Medications Medication Instructions Recorded Confirmed diltiazem HCl 240 mg capsule,24 180 mg PO DAILY 01/17/13 08/19/22 hr,extended release (Taztia XT) levothyroxine 200 mcg tablet 200 mcg PO DAILY 01/17/13 08/19/22 levothyroxine 25 mcg tablet 25 mcg PO DAILY 01/17/13 08/19/22 methadone 10 mg/5 mL oral solution 98 mg PO DAILY 01/17/13 08/20/22 mirtazapine 15 mg tablet 15 mg PO DAILY 01/17/13 08/19/22 mirtazapine 45 mg tablet 45 mg PO DAILY 01/17/13 08/19/22 zolpidem 5 mg tablet 5 mg PO HS 01/17/13 08/19/22 docusate sodium 100 mg capsule 200 mg PO DAILY 01/23/13 08/19/22 (Dulcolax Stool Softener (docusate)) simvastatin 10 mg tablet 10 mg PO DAILY 03/12/13 08/19/22 promethazine 25 mg rectal 25 mg [place] PRN 03/15/14 08/19/22 suppository (Phenadoz) lorazepam 1 mg tablet 1 mg PO Q6H PRN PRN #14 tabs 11/05/16 08/19/22 dexlansoprazole 60 mg 1 tab PO DAILY 03/17/18 08/19/22 capsule,biphase delayed release (Dexilant) lisinopril 2.5 mg tablet 1 tab PO DAILY 03/17/18 08/19/22 cephalexin 500 mg tablet 500 mg PO QID #28 tabs 08/16/22 08/19/22 Previous Rx's Medication Instructions Recorded lorazepam 1 mg tablet 1 mg PO Q6H PRN PRN #14 tabs 11/05/16 cephalexin 500 mg tablet 500 mg PO QID #28 tabs 08/16/22 Allergies Allergy/AdvReac Type Severity Reaction Status Date / Time No Known Allergies Allergy Unverified 08/19/22 16:57 General Stated Complaint: Cellulitis PAULINE: 4 Review of Systems <Johana Aldrich NP - Last Filed: 08/16/22 21:49> All systems reviewed & are unremarkable except as noted in HPI and below Integumentary/Breasts Skin/Breast: Reports new lesions (No area that is fluctuant or consistent with abscess) and Reports erythema (, ) PFSH <Johana Aldrich NP - Last Filed: 08/16/22 21:49> All Active Problems (Updated 08/23/22 @ 18:54 by Taylor Cervantes NP) Hypokalemia (Acute) Bronchitis (Acute) Acute hypoxemic respiratory failure (Acute) Chronic obstructive pulmonary disease with (acute) exacerbation (Acute) Distal radius fracture (Acute) Cellulitis (Acute) Shortness of breath (Acute) Medical History (Updated 08/23/22 @ 18:54 by Taylor Cervantes NP) Depression GERD (gastroesophageal reflux disease) History of drug abuse Hypertension Hypothyroid Irregular heart rhythm Trouble in sleeping Surgical History History of thyroidectomy Social History Smoking/Tobacco Use Status: Former Tobacco Use Quit Date: 06/13/99 Smoking risk assessment performed?: Yes Alcohol Intake: never Drug use: Current Sobriety Substance use type: former substance user Current gender identity: female Do you feel safe at home: Yes Do you feel safe in your relationship?: Yes Exam <Johana Aldrich NP - Last Filed: 08/16/22 21:49> Narrative Exam Narrative: Healthy female of stated age in no acute distress skin is pink warm dry well- perfused head is atraumatic Oral mucosa is moist Skin Lesions: no lesions Rashes: rashes noted (Erythema approximately 5 to 6 cm's by 5 6 cm's in her abdominal fold. Ther) Neuro General: patient alert, patient awake and patient oriented x3 Extrem General: normal to inspection and full ROM Course <Johana Aldrich NP - Last Filed: 08/16/22 21:49> Vital Signs Vital signs: Vital Signs Temperature 36.8 C 08/16/22 15:16 Pulse 97 H 08/16/22 15:16 Respiratory Rate 22 08/16/22 15:16 Blood Pressure 155/74 H 08/16/22 15:16 Pulse Oximetry 96 08/16/22 15:16 Temperature 36.8 C 08/16/22 15:16 Temperature Source Oral 08/16/22 15:16 Pulse 97 H 08/16/22 15:16 Respiratory Rate 22 08/16/22 15:16 Respiratory Effort Normal 08/16/22 15:22 Blood Pressure 155/74 H 08/16/22 15:16 Blood Pressure Position Sitting 08/16/22 15:16 Pulse Oximetry 96 08/16/22 15:16 Oxygen Delivery Method Room Air 08/16/22 15:16 Oxygen Flow Rate 0 08/16/22 15:16 Pain Level 2 08/16/22 15:16
== END 2022-08-16 16:50 | disposition home or self-care (01) ==
PROVIDERS: Emergency Provider Nurse Practitioner Acute Care; PCP Nurse Practitioner
DX: L03.319 Cellulitis of trunk, unspecified (principal)
CPT/HCPCS: 99283

== ENCOUNTER 2022-08-19 16:48 | Inpatient (IN) | payer MEDICARE, SELFPAY ==
[2022-08-19] VITALS (25 sets, daily range): BP systolic 91–157; BP diastolic 41–74; PULSE 80–124; RESP 4–26; TEMP 36.9–37; O2SAT 86–97
--- NOTE | 2022-08-19 17:00 | DI.CT_ITS ---
Exam(s) CT CHEST PE CTA EXAM: CT CHEST PE CTA CLINICAL HISTORY: dyspnea, hypoxia. TECHNIQUE: Imaging Protocol: Axial CT angiography was performed with multi-slice acquisition and mu lti-planar and/or 3D reconstructions. CONTRAST MATERIAL: Intravenous: Omnipaque 350 contrast volume:100 mL COMPARISON: CT CHEST FOR PULMONARY EMBOLUS from 06/18/2017 FINDINGS: Tracheobronchial tree: There do appear to be secretions in the airways to the left lower lobe. Visua lized airways are otherwise unremarkable. Pulmonary parenchyma: There are areas of consolidation involving the left lower lobe with severe loss of volume. There also infiltrates seen in the right middle and right lower lobe in the lung bases. There is some elevation of the right hemidiaphragm. No architectural distortion. Pulmonary Arteries: No evidence of filling defect to suggest pulmonary emboli. Some of the peripheral segmental and subsegmental pulmonary arteries are poorly opacified limiting evaluation for pulmonary emboli. Mediastinum and Madeline: No dominant adenopathy or fluid collection. The esophagus is unremarkable. Th ere is a small hiatal hernia. Visualized thyroid gland: Not well visualized. Pleura: No effusion or pneumothorax. Heart: Mild cardiomegaly. No coronary artery calcifications are seen. No pericardial effusion. The RV to LV ratio is less than 1. Aorta: Thoracic aorta non-dilated. No evidence of dissection. Upper abdomen: Status post cholecystectomy. Fatty infiltration of the pancreas. Soft tissues: Unremarkable. Bones: Within normal limits for the patient's age.There is a right convex thoracic scoliosis. IMPRESSION: 1. No evidence of pulmonary embolism, thoracic aortic dissection or aneurysm. 2. Bilateral basilar infiltrates which may represent atelectasis or pneumonia. Please correlate clin ically. RADIATION DOSE DELIVERED: 639.17mGy.cm Total DLP DATA REPOSITORY: All CT scans at this facility are submitted to the National Radiology Data Registry (NRDR) Dose Index Registry (DIR) with the [employer] ([employer]). RADIATION OPTIMIZATION: All CT scans at this facility use at least one of these dose optimization te chniques: automated exposure control; mA and/or kV adjustment per patient size (includes targeted exa ms where dose is matched to clinical indication); or iterative reconstruction.
--- NOTE | 2022-08-19 17:36 | ED.GENADUL_ITS ---
Discharge Plan Disposition Condition: Stable Discharge Details Chief Complaint: RespSymp Clinical Impression: Shortness of breath Primary Care Provider: Beena Patel ED Provider: Fer Hardwick Home Meds and New Rx's Prescriptions: No Action methadone 10 MG/5 ML solution 96 mg PO DAILY diltiazem HCl [Taztia XT] 240 MG capsule,extended release 24 hr 180 mg PO DAILY levothyroxine 25 MCG tablet 25 mcg PO DAILY mirtazapine 45 MG tablet 45 mg PO DAILY levothyroxine 200 MCG tablet 200 mcg PO DAILY zolpidem 5 MG tablet 5 mg PO HS mirtazapine 15 MG tablet 15 mg PO DAILY docusate sodium [Dulcolax Stool Softener (dss)] 100 MG capsule 200 mg PO DAILY simvastatin 10 MG tablet 10 mg PO DAILY promethazine [Phenadoz] 25 MG suppository 25 mg [place] PRN dexlansoprazole [Dexilant] 60 mg Capsule,Biphase Delayed Releas 1 tab PO DAILY lisinopril 2.5 mg Tablet 1 tab PO DAILY cephalexin 500 mg tablet 500 mg PO QID Qty: 28 0RF lorazepam 1 MG tablet 1 mg PO Q6H PRN PRNQty: 14 0RF Medical Decision Making 62 yo female with prior history of smoking, hypothyroidism, who comes in with 2 days of cough and dyspnea for 2 days. She was started on cephalexin earlier this week for a cellulitis of her pannus which she states has improved. She states she has had subjective fevers and chills. She arrives hypoxic in the 80's, on 4L [place] is 92%. She is able to speak in 4-5 word sentences. Her cellulitis seems to have resolved on exam. She has no jvd, diffuse wheezing bilaterally, no calf tenderness. Given her exam findings and hypoxia will treat with duoneb and steroids, will also obtain ecg, troponin, probnp, cbc, cmp, cta to evaluate for pe vs pneumonia along with covid test. labs unremarkable and cta shows no pe does have some secretions in the airways. She never received her first duoneb, will sign out pending reeval after she receives nebs. Differential Diagnosis Differential Diagnosis: copd, pe, covid Medical Records Medical records reviewed: Yes I reviewed the patient's medical records. Imaging Data Radiologic Study: Attestation: I personally reviewed and interpreted this imaging study as follows: Imaging: CT Scan Radiologist's impression: No pulmonary emboli observed Bilateral subsegmental atelectasis Abnormally thickened left lower lobe airways with secretions noted within Lab Data Lab results reviewed: Yes I reviewed the patient's lab results. HPI General Mode of arrival: ambulatory . Date/Time Provider Initiated Documentation: 08/19/22 17:02 . Limitations to Documentation: no limitations . Information obtained by: patient . History of Present Illness 62 year old F presents to the emergency department with the chief complaint of dyspnea, described as moderate, Patient started experiencing this day(s) (2) and it has been constant. No relieving factors improve symptom(s), No exacerbating factors reported . Patient notes cough and fever/chills. Patient did receive the following treatments prior to arrival, none Related Data Home Medications Medication Instructions Recorded Confirmed diltiazem HCl 240 mg capsule,24 180 mg PO DAILY 01/17/13 08/19/22 hr,extended release (Taztia XT) levothyroxine 200 mcg tablet 200 mcg PO DAILY 01/17/13 08/19/22 levothyroxine 25 mcg tablet 25 mcg PO DAILY 01/17/13 08/19/22 methadone 10 mg/5 mL oral solution 96 mg PO DAILY 01/17/13 08/19/22 mirtazapine 15 mg tablet 15 mg PO DAILY 01/17/13 08/19/22 mirtazapine 45 mg tablet 45 mg PO DAILY 01/17/13 08/19/22 zolpidem 5 mg tablet 5 mg PO HS 01/17/13 08/19/22 docusate sodium 100 mg capsule 200 mg PO DAILY 01/23/13 08/19/22 (Dulcolax Stool Softener (docusate)) simvastatin 10 mg tablet 10 mg PO DAILY 03/12/13 08/19/22 promethazine 25 mg rectal 25 mg [place] PRN 03/15/14 08/19/22 suppository (Phenadoz) lorazepam 1 mg tablet 1 mg PO Q6H PRN PRN #14 tabs 11/05/16 08/19/22 dexlansoprazole 60 mg 1 tab PO DAILY 03/17/18 08/19/22 capsule,biphase delayed release (Dexilant) lisinopril 2.5 mg tablet 1 tab PO DAILY 10/05/18 03/09/23 cephalexin 500 mg tablet 500 mg PO QID #28 tabs 08/16/22 08/19/22 Previous Rx's Medication Instructions Recorded lorazepam 1 mg tablet 1 mg PO Q6H PRN PRN #14 tabs 11/05/16 cephalexin 500 mg tablet 500 mg PO QID #28 tabs 08/16/22 Allergies Allergy/AdvReac Type Severity Reaction Status Date / Time No Known Allergies Allergy Unverified 08/19/22 16:57 General Stated Complaint: RespSymp PAULINE: 3 Review of Systems All systems reviewed & are unremarkable except as noted in HPI and below Constitutional Constitutional: Denies weakness Cardiovascular Cardiovascular: Denies chest pain Gastrointestinal Gastrointestinal: Denies abdominal pain, Denies nausea and Denies vomiting Genitourinary Genitourinary: Denies dysuria Musculoskeletal Musculoskeletal: Denies joint swelling Integumentary/Breasts Skin/Breast: Denies rash Neurologic Neurologic: Denies weakness PFSH All Active Problems (Updated 08/19/22 @ 20:15 by Fer Hardwick MD) Distal radius fracture (Acute) Cellulitis (Acute) Shortness of breath (Acute) Medical History (Updated 08/19/22 @ 20:15 by Fer Hardwick MD) Depression GERD (gastroesophageal reflux disease) History of drug abuse Hypertension Hypothyroid Irregular heart rhythm Trouble in sleeping Surgical History History of thyroidectomy Social History Smoking/Tobacco Use Status: Former Tobacco Use Quit Date: 06/13/99 Smoking risk assessment performed?: Yes Alcohol Intake: never Drug use: Current Sobriety Substance use type: former substance user Current gender identity: female Do you feel safe at home: Yes Do you feel safe in your relationship?: Yes Exam Const General: no acute distress Orientation: alert HENMT Head: normal to inspection Ears: external ears normal General nose exam: external nose normal Mouth: moist mucous membranes Eyes General: appearance normal, both eyes and all related structures Neck Neck: normal visual inspection Resp Auscultation: wheezes Cardio Jugular venous pressure: no JVD Rate: regular rate Rhythm: regular rhythm Heart Sounds: no murmurs GI Palpation: soft and nontender Skin General skin exam: no rashes or lesions noted Neuro General: patient alert and patient oriented x3 Extrem General: normal to inspection Psych Mental Status: mental status grossly normal Course Vital Signs Vital signs: Vital Signs Temperature 37.0 C 08/19/22 16:54 Pulse 97 H 08/19/22 16:54 Respiratory Rate 18 08/19/22 16:54 Blood Pressure 149/74 H 08/19/22 16:54 Temperature 37.0 C 08/19/22 16:54 Temperature Source Tympanic 08/19/22 16:54 Pulse 97 H 08/19/22 16:54 Respiratory Rate 18 08/19/22 16:54 Respiratory Effort Normal, Non-Labored 08/19/22 16:56 Blood Pressure 149/74 H 08/19/22 16:54 Pulse Oximetry 90 L 08/19/22 17:08 Oxygen Delivery Method Nasal Cannula 08/19/22 17:08 Oxygen Flow Rate 0 08/19/22 16:58
--- NOTE | 2022-08-19 17:45 | RT.EKG_ITS ---
APPROVED REPORT Exam: Resting ECG Reason for Exam: sob Patient Location: E HR:104 bpm ECG Measurements Heart Rate 104 AXIS AR 147 P 45 QRSd 81 QRS -1 QT 343 T 32 QTc 450 Conclusion Sinus tachycardia...rate> 99 Low voltage, precordial leads...precordial leads <1.0mV Physician: no stemi, minimal lateral depressions
[2022-08-19 18:16] LABS: Abs Immature Grans 0.02 10^3/uL (0.0-0.06); Absolute Basophil Count 0.02 10^3/uL (0.0-0.2); Absolute Eosinophil Count 0.19 10^3/uL (0.0-0.7); Absolute Lymphocyte Count 1.18 10^3/uL (1.2-3.4); Absolute Monocyte Count 0.38 10^3/uL (0.1-0.8); Absolute Neutrophil Count 5.36 10^3/uL (1.2-6.7); Basophils % 0.3; Eosinophils % 2.7; HCT 40.6 % (36.0-46.0); Immature Grans % 0.3; Lymphocytes % 16.5; MCH 28.3 pg (27.0-33.0); MCV 88 fL (80-95); Monocytes % 5.3; Neutrophils % 74.9; Platelet Count 189 10^3/uL (130-400); RDW 12.9 % (11.7-14.6); RDW-SD 41.1 fL; WBC 7.15 10^3/uL (4.4-10.8)
[2022-08-19 18:28] LABS: PTT Activated 26.3 sec (21.5-31.9); Prothrombin Time 9.7 sec (9.3-11.0)
[2022-08-19 18:46] LABS: ALT 28 U/L (14-59); AST 22 U/L (15-37); Albumin 3.8 g/dL (3.4-5.0); Alkaline Phosphatase 112 U/L (46-116); Anion Gap 8.8 mmol/L (3-11); BUN 8 mg/dL (7-18); Bilirubin, Total 0.5 mg/dL (0.2-1.0); CO2 30.2 mmol/L (21.0-32.0); CREATININE 0.9 mg/dL (0.55-1.02); Calcium 8.8 mg/dL (8.5-10.1); Chloride 104 mmol/L (98-107); Estimated GFR 71.39 (mL/min/1.73m2); Glucose 112 mg/dL (74-106); Magnesium 1.9 mg/dL (1.8-2.4); NT-proBNP 98 pg/mL (<300); Potassium 3.7 mmol/L (3.5-5.1); Sodium 143 mmol/L (136-145); TSH (W/Ref FT4) 0.17 uIU/mL (0.36-3.74); Total Protein 7.4 g/dL (6.4-8.2); Troponin I < 50 ng/L (<or=60)
[2022-08-19 18:50] LABS: COVID-19 PCR Negative (Negative); Influenza A PCR Negative (Negative); Influenza B PCR Negative (Negative); RSV PCR Negative (Negative)
[2022-08-19 18:55] LABS: Source Nasopharynx
[2022-08-19] MEDS: Omnipaque 350 MG/ML 100 ML BTL IJ (19:32)
[2022-08-19] MEDS: Normal Saline - Diluent 50 ML VIAL IV (19:33)
--- NOTE | 2022-08-19 19:56 | DI.VRAD_ITS ---
PROCEDURE INFORMATION: Exam: CTA Chest With Contrast Exam date and time: 08/19/2022 7:27 PM Age: 62 years old Clinical indication: Dyspnea and other: Dyspnea, hypoxia TECHNIQUE: Imaging protocol: Computed tomographic angiography of the chest with contrast. 3D rendering (Not supervised by radiologist): MIP and/or 3D reconstructed images were created by the technologist. Radiation optimization: All CT scans at this facility use at least one of these dose optimization techniques: automated exposure control; mA and/or kV adjustment per patient size (includes targeted exams where dose is matched to clinical indication); or iterative reconstruction. Contrast material: OMNI 350; Contrast volume: 100 ml; Contrast route: INTRAVENOUS (IV); COMPARISON: CT CHEST FOR PULMONARY EMBOLUS 06/18/2017 11:54 AM FINDINGS: Pulmonary arteries: No pulmonary emboli. Aorta: No aortic aneurysm. No aortic dissection. Lungs: Bilateral subsegmental atelectasis No consolidation. No masses. Abnormally thickened left lower lobe airways with secretions noted Pleural spaces: No pneumothorax. No pleural effusion. Heart: Moderate cardiomegaly. No pericardial effusion. Lymph nodes: No enlarged lymph nodes. Bones/joints: Unremarkable. No acute fracture. Soft tissues: Unremarkable. Prior cholecystectomy.Hepatomegaly and diffuse fatty infiltration A small hiatal hernia is detected. IMPRESSION: No pulmonary emboli observed Bilateral subsegmental atelectasis Abnormally thickened left lower lobe airways with secretions noted within Dictated and Authenticated by: Adolph Wing MD. Ordering:NANCI Monroe MD
[2022-08-19] MEDS: Albuterol/Ipratropium 3 ML UPD VIAL UPD ×3 (20:10→21:47)
--- NOTE | 2022-08-19 21:31 | HPE_ITS ---
Date of service: 08/19/22 Time of Service: 21:31 Assessment and Plan Assessment and plan (1) Acute hypoxemic respiratory failure: Start date: 08/19/22 Status: Acute Assessment and plan: This is a 62-year-old lady with worsening respiratory symptoms after choking on pills a couple days ago but no fever and no production of sputum. CT scan did not reveal infiltrates such as aspiration pneumonia. Did reveal bronchitis. Patient will be on O2 supplementation and will have aggressive treatment for bronchitis and COPD exacerbation. O2 supplementation in the hospital will need to be weaned to room air since she was not previously on oxygen. Secondary smo ke should be stopped. She is a full code. (2) Chronic obstructive pulmonary disease with (acute) exacerbation: Start date: 08/19/22 Status: Acute Assessment and plan: Aggressive respiratory treatment with nebulizers, IV Solu-Medrol and she will be placed on doxycycline for orchitis. O2 supplementation to be weaned as tolerated. (3) Bronchitis: Start date: 08/19/22 Status: Acute Assessment and plan: IV doxycycline and convert to oral therapy at discharge. Expand antibiotic coverage if evolution of aspiration pneumonia during this hospital stay. (4) Hypertension: Assessment and plan: Patient on treatment for hypertension but also has history of irregular heart rhythm but no overt diagnosis of atrial fibrillation or flutter and not on anticoagulation. Continue outpatient medical therapy and monitor on cardiac monitoring. (5) Hypothyroid: Assessment and plan: Patient has a history of thyroid cancer status post thyroidectomy and is on suppressive therapy with Synthroid. Dosages will not be changed during this hospital stay with patient to follow-up as an outpatient with endocrinology or PCP. (6) Depression: Assessment and plan: Continue high-dose Remeron with patient chronically on methadone treatment as well. History of Present Illness History of Present Illness Chief Complaint: Dyspnea with hypoxemia Narrative: This is a 62 female patient who choked on a pill 2 days prior to presenting to the ED with increasing shortness of breath and oxygen needs. She has occasional wheezing when she has cold during the winter and did have COPD in the past but has not smoked for many years and has not had problems with her respiratory status. She is overweight. She does have a partner has been smoking inside recently which may have prompted some of these symptoms. She does not take any chronic respiratory inhalers. She has on medical therapy for dysrhythmia and hypertension and is overweight as mentioned. She does not know with her dysrh ythmia is and is not on anticoagulation. She also has a history of thyroid cancer on suppressive therapy with TSH suppressed and free T4 slightly elevated. She denies any palpitations recently. The patient continued to require oxygen therapy though she was having less respiratory distress in the ED and will be admitted for COPD exacerbation with continued hypoxemia. Imaging and lab were unrevealing other than bronchitis. She is a full code. Review of Systems Narrative: 13 point review of systems otherwise unrevealing or stable. PFSH All Active Problems (Updated 08/19/22 @ 21:33 by Crescencio Short) Bronchitis (Acute) Acute hypoxemic respiratory failure (Acute) Chronic obstructive pulmonary disease with (acute) exacerbation (Acute) Distal radius fracture (Acute) Cellulitis (Acute) Shortness of breath (Acute) Medical History (Updated 08/19/22 @ 21:33 by Crescencio Short) Depression GERD (gastroesophageal reflux disease) History of drug abuse Hypertension Hypothyroid Irregular heart rhythm Trouble in sleeping Surgical History History of thyroidectomy Social History Smoking/Tobacco Use Status: Former Tobacco Use Quit Date: 06/13/99 Smoking risk assessment performed?: Yes Alcohol Intake: never Drug use: Current Sobriety Substance use type: former substance user Current gender identity: female Do you feel safe at home: Yes Do you feel safe in your relationship?: Yes Meds Allergies and Home Medications Allergies Allergy/AdvReac Type Severity Reaction Status Date / Time No Known Allergies Allergy Unverified 08/19/22 16:57 Home Medications Medication Instructions Recorded Confirmed Type diltiazem HCl 240 mg capsule,24 180 mg PO DAILY 01/17/13 08/19/22 History hr,extended release (Taztia XT) levothyroxine 200 mcg tablet 200 mcg PO DAILY 01/17/13 08/19/22 History levothyroxine 25 mcg tablet 25 mcg PO DAILY 01/17/13 08/19/22 History methadone 10 mg/5 mL oral solution 96 mg PO DAILY 01/17/13 08/19/22 History mirtazapine 15 mg tablet 15 mg PO DAILY 01/17/13 08/19/22 History mirtazapine 45 mg tablet 45 mg PO DAILY 01/17/13 08/19/22 History zolpidem 5 mg tablet 5 mg PO HS 01/17/13 08/19/22 History docusate sodium 100 mg capsule 200 mg PO DAILY 01/23/13 08/19/22 History (Dulcolax Stool Softener (docusate)) simvastatin 10 mg tablet 10 mg PO DAILY 03/12/13 08/19/22 History promethazine 25 mg rectal 25 mg MO PRN 03/15/14 08/19/22 History suppository (Phenadoz) lorazepam 1 mg tablet 1 mg PO Q6H PRN PRN #14 tabs 11/05/16 08/19/22 Rx dexlansoprazole 60 mg 1 tab PO DAILY 03/17/18 08/19/22 History capsule,biphase delayed release (Dexilant) lisinopril 2.5 mg tablet 1 tab PO DAILY 03/17/18 08/19/22 History cephalexin 500 mg tablet 500 mg PO QID #28 tabs 08/16/22 08/19/22 Rx Exam Narrative Exam Narrative: General: Patient appears appropriate for age, short stature and obese. She is alert and oriented x3. She is in no acute distress. HEENT: Normocephalic, eyes with pupils equal reactive light symmetrically, extraocular movement tact and sclera anicteric. Oropharynx with dry mucosa and fair dentition. Neck: Supple without JVD. Back: Stooped posture without CVA tenderness. Lungs: Decreased aeration diffusely with bronchovesicular breath sounds and slight increased expiratory phase with wheeze and rhonchi on coughing but no focalizing inspiratory rales. No dullness to percussion. Heart: Regular rate and rhythm with 3/6 systolic murmur left lower border. No gallops or rubs. Breast: Exam deferred. Abdomen: Obese contour, soft nontender to palpation with no palpable hepatosplenomegaly. Bowel sounds positive all quadrants. Genitalia/rectal: Exam deferred. Extremities: Obese lower extremities with nonpitting edema and no cyanosis or clubbing. Joints have fair range of motion. Fair capillary refill. Skin: Normal color, warm and dry. Neuro: Cranial 2 through 12 gross intact, no focalized motor deficits or tremor. Psych: Flattened affect but normal mood. She is a vague historian. No abnormal thought processes. Remote and recent memory grossly intact. Results Imaging Imaging Studies: Exam: CTA Chest With Contrast Exam date and time: 08/19/2022 7:27 PM Age: 62 years old Clinical indication: Dyspnea and other: Dyspnea, hypoxia TECHNIQUE: Imaging protocol: Computed tomographic angiography of the chest with contrast. 3D rendering (Not supervised by radiologist): MIP and/or 3D reconstructed images were created by the technologist. Radiation optimization: All CT scans at this facility use at least one of these dose optimization techniques: automated exposure control; mA and/or kV adjustment per patient size (includes targeted exams where dose is matched to clinical indication); or iterative reconstruction. Contrast material: OMNI 350; Contrast volume: 100 ml; Contrast route: INTRAVENOUS (IV);? COMPARISON: CT CHEST FOR PULMONARY EMBOLUS 06/18/2017 11:54 AM FINDINGS: Pulmonary arteries: No pulmonary emboli. Aorta: No aortic aneurysm. No aortic dissection. Lungs:? Bilateral subsegmental atelectasis No consolidation. No masses.? Abnormally thickened left lower lobe airways with secretions noted Pleural spaces: No pneumothorax. No pleural effusion. Heart:? Moderate cardiomegaly. No pericardial effusion. Lymph nodes: No enlarged lymph nodes. Bones/joints: Unremarkable. No acute fracture. Soft tissues: Unremarkable. Prior cholecystectomy.Hepatomegaly and diffuse fatty infiltration A small hiatal hernia is detected. IMPRESSION: No pulmonary emboli observed Bilateral subsegmental atelectasis Abnormally thickened left lower lobe airways with secretions noted within Labs 08/19/22 18:06 08/19/22 18:06 Labs: Laboratory Results - last 24 hr 08/19/22 08/19/22 08/19/22 18:06 18:06 18:06 WBC 7.15 RBC 4.60 Hgb 13.0 Hct 40.6 MCV 88 MCH 28.3 MCHC 32.0 RDW 12.9 Plt Count 189 MPV 9.0 Immature Gran % 0.3 Neutrophils % 74.9 Lymphocytes % 16.5 Monocytes % 5.3 Eosinophils % 2.7 Basophils % 0.3 Nucleated RBC % 0.0 Absolute Neutrophils 5.36 Absolute Lymphocytes 1.18 L Absolute Monocytes 0.38 Absolute Eosinophils 0.19 Absolute Basophils 0.02 PT INR APTT Sodium 143 Potassium 3.7 Chloride 104 Carbon Dioxide 30.2 Anion Gap 8.8 BUN 8 Creatinine 0.9 Est GFR (CKD-EPI 2020) 71.39 Glucose 112 H Calcium 8.8 Magnesium 1.9 Total Bilirubin 0.5 AST 22 ALT 28 Alkaline Phosphatase 112 Troponin I < 50 NT-Pro-B Natriuret Pep 98 Total Protein 7.4 Albumin 3.8 TSH 0.17 L Free T4 1.70 H COVID-19 Source Nasopharynx SARS-CoV-2 (PCR) Negative Influenza Type A (PCR) Negative Influenza Type B (PCR) Negative RSV (PCR) Negative 08/19/22 18:06 WBC RBC Hgb Hct MCV MCH MCHC RDW Plt Count MPV Immature Gran % Neutrophils % Lymphocytes % Monocytes % Eosinophils % Basophils % Nucleated RBC % Absolute Neutrophils Absolute Lymphocytes Absolute Monocytes Absolute Eosinophils Absolute Basophils PT 9.7 INR 1.0 APTT 26.3 Sodium Potassium Chloride Carbon Dioxide Anion Gap BUN Creatinine Est GFR (CKD-EPI 2020) Glucose Calcium Magnesium Total Bilirubin AST ALT Alkaline Phosphatase Troponin I NT-Pro-B Natriuret Pep Total Protein Albumin TSH Free T4 COVID-19 Source SARS-CoV-2 (PCR) Influenza Type A (PCR) Influenza Type B (PCR) RSV (PCR) Last Vital Signs Temp 37.0 C 08/19/22 16:54 Pulse 97 H 08/19/22 19:40 Resp 26 H 08/19/22 20:10 BP 157/71 H 08/19/22 19:40 Pulse Ox 87 L 08/19/22 20:10 Time Spent Time spent with Patient: >75 minutes Time was spent: preparing to see the patient(eg.review tests), obtaining and/or reviewing separately otained hiistory, ordering medications,tests, procedures, referring, communicating with other health rental boats caretaker, indepentently interpreting results, counseling the patient and care coordination
[2022-08-19] MEDS: Normal Saline 500 ML IV (21:36)
--- NOTE | 2022-08-19 21:37 | ED.PROG_ITS ---
Date of service: 08/19/22 Time of Service: 21:40 Medical Decision Making 62-year-old female was signed out to me by my colleague Dr. Fer Hardwick. Please refer to his HPI, physical exam, assessment and plan. Patient presented for shortness of breath. Initial exam demonstrated notable wheeziness and mild hypoxemia. CTA was ordered and was negative for any evidence of significant pneumonia or PE. Troponin and EKG are stable. Laboratory work-up had returned and was otherwise stable/unremarkable. She was on Keflex already for mild lower abdominal cellulitis which is clinically improving based on reassessment. Patient was signed out pending reassessment after duo nebs. I did go and reassess the patient, and she states that she clinically feels improved, however she still maintains notable wheezes on reassessment, as well as being hypoxic in the mid 80s around 84-85 on no oxygen. Patient has not smoked for the last 20 years, however she says that her significant other just started smoking inside the house over the last few weeks. She denies any personal history of COPD, she does not have any inhalers at home. Exam demonstrates continued wheezes. On 4 L of oxygen she comes up to 92 to 93%. I did discuss with the patient that I do not think it is safe that she goes home at this stage. I did contact the hospitalist Dr. Short, he agrees with the assessment and plan. We will start the patient on doxycycline, given additional breathing treatments, and admit. I have extensively reviewed the treatment plan with the patient. I have addressed all patient concerns at this time. I have also discussed the plan with the admitting physician and they agree with the current assessment and plan and have agreed to assume responsibility for the patient. All parties demonstrate verbal understanding and agreement with our assessment and plan at this time. The documentation in this chart was dictated using [employer] dictation software. Please excuse any dictation errors. FINDINGS: Pulmonary arteries: No pulmonary emboli. Aorta: No aortic aneurysm. No aortic dissection. Lungs: Bilateral subsegmental atelectasis No consolidation. No masses. Abnormally thickened left lower lobe airways with secretions noted Pleural spaces: No pneumothorax. No pleural effusion. Heart: Moderate cardiomegaly. No pericardial effusion. Lymph nodes: No enlarged lymph nodes. Bones/joints: Unremarkable. No acute fracture. Soft tissues: Unremarkable. Prior cholecystectomy.Hepatomegaly and diffuse fatty infiltration A small hiatal hernia is detected. IMPRESSION: No pulmonary emboli observed Bilateral subsegmental atelectasis Abnormally thickened left lower lobe airways with secretions noted within Sign Out Sign Out Data: Sign Out Comment: 2 days dyspnea, cough, labs and cta unremarkable other than nonspecific left lower lobe thickening and secretions. Reassess after nebs Last updated by Fer Hardwick MD at 08/19/22 20:22 Discharge Plan Disposition Patient Disposition: Admit to [facility] Condition: Stable Discharge Details Chief Complaint: RespSymp Clinical Impression: Shortness of breath, COPD exacerbation Primary Care Provider: Beena Patel ED Provider: Christopher Doyle Home Meds and New Rx's Prescriptions: No Action methadone 10 MG/5 ML solution 96 mg PO DAILY diltiazem HCl [Taztia XT] 240 MG capsule,extended release 24 hr 180 mg PO DAILY levothyroxine 25 MCG tablet 25 mcg PO DAILY mirtazapine 45 MG tablet 45 mg PO DAILY levothyroxine 200 MCG tablet 200 mcg PO DAILY zolpidem 5 MG tablet 5 mg PO HS mirtazapine 15 MG tablet 15 mg PO DAILY docusate sodium [Dulcolax Stool Softener (dss)] 100 MG capsule 200 mg PO DAILY simvastatin 10 MG tablet 10 mg PO DAILY promethazine [Phenadoz] 25 MG suppository 25 mg IA PRN dexlansoprazole [Dexilant] 60 mg Capsule,Biphase Delayed Releas 1 tab PO DAILY lisinopril 2.5 mg Tablet 1 tab PO DAILY cephalexin 500 mg tablet 500 mg PO QID Qty: 28 0RF lorazepam 1 MG tablet 1 mg PO Q6H PRN PRNQty: 14 0RF
[2022-08-19 21:42] LABS: Troponin I < 50 ng/L (<or=60)
[2022-08-19] MEDS: DOXYCYCLINE 100 MG in Normal Saline 100 ML IVPB (21:48)
[2022-08-19] MEDS: methylPREDNISolone SUCC 125 MG VIAL IVP (21:48)
--- NOTE | 2022-08-19 22:01 | NUR.NOTE ---
Addendum entered by Lavern Ayala RN 08/19/22 22:06: 2018: Upon assuming care of this patient this RN noted that duoneb updraft and solumedrol had been ordered at around 1730 and not documented as given. Do not appear to have been administered by RN caring for pt at the time these orders were entered by MD Hardwick. This RN asked pt if she recalls having had this medications administered, and pt denies having received any updraft breathing treatments or IV meds but 'I'm not sure, I don't know too much about medical stuff like that'. MD Hardwick updated and aware. Plan to administer these medications at a later time. See MAR for details. Original Note: 2018: Upon assuming care of this patient this RN noted that duoneb updraft and solumedrol had been ordered at around 1730 and not documented as given. Do not appear to have been administered by RN caring for pt at the time these orders were entered by MD Hardwick. This RN asked pt if she recalls having had this medications administered, and pt denies having receiving any upfdraft
[2022-08-19] MEDS: Ondansetron 4 MG/2 ML VIAL IVP (22:31)
[2022-08-19] MEDS: Zolpidem 5 MG TAB PO (23:53)
[2022-08-20] VITALS (13 sets, daily range): BP systolic 113–167; BP diastolic 67–82; PULSE 77–126; RESP 4–22; TEMP 36.3; O2SAT 83–95
[2022-08-20] MEDS: Albuterol/Ipratropium 3 ML UPD VIAL UPD ×4 (05:36→21:11)
[2022-08-20] MEDS: Levothyroxine 25 MCG TAB PO (05:36)
[2022-08-20] MEDS: Levothyroxine 200 MCG TAB PO (05:37)
[2022-08-20] MEDS: methylPREDNISolone SUCC 125 MG VIAL 80 MG IVP ×2 (06:05→15:05)
[2022-08-20 06:43] LABS: HCT 38.9 % (36.0-46.0); HGB 12.6 g/dL (11.2-15.7); MCH 28.6 pg (27.0-33.0); MCHC 32.4 % (32.0-36.0); MCV 88 fL (80-95); Platelet Count 184 10^3/uL (130-400); RBC 4.41 10^6/uL (3.93-5.22); RDW 12.8 % (11.7-14.6); RDW-SD 41.5 fL; WBC 7.26 10^3/uL (4.4-10.8)
[2022-08-20 06:58] LABS: ALT 21 U/L (14-59); AST 16 U/L (15-37); Albumin 3.4 g/dL (3.4-5.0); Alkaline Phosphatase 107 U/L (46-116); Anion Gap 11.1 mmol/L (3-11); BUN 8 mg/dL (7-18); Bilirubin, Total 0.4 mg/dL (0.2-1.0); CO2 27.9 mmol/L (21.0-32.0); CREATININE 0.9 mg/dL (0.55-1.02); Chloride 105 mmol/L (98-107); Estimated GFR 71.39 (mL/min/1.73m2); Glucose 173 mg/dL (74-106); Magnesium 1.9 mg/dL (1.8-2.4); Potassium 3.6 mmol/L (3.5-5.1); Sodium 144 mmol/L (136-145)
[2022-08-20] MEDS: Mirtazapine 15 MG TAB 45 MG PO (07:56)
[2022-08-20] MEDS: Lisinopril 5 MG TAB 2.5 MG PO (07:57)
[2022-08-20] MEDS: dilTIAZem CD 180 MG CAPCR PO (07:57)
[2022-08-20] MEDS: Docusate Sodium 100 MG CAP 200 MG PO (07:57)
[2022-08-20] MEDS: Mirtazapine 15 MG TAB PO (08:05)
--- NOTE | 2022-08-20 09:00 | PDOC.CMIN ---
- If Service Date Differs Date of service: 08/20/22 Time of Service: 09:00 Care Management Initial Assess REASON FOR HOSPITALIZATION:: COPD Exacerbation, Acute hypoxic respiratory failure PAST MEDICAL HISTORY/PAST SURGICAL HISTORY:: Medical History (Updated 08/19/22 @ 21:33 by Crescencio Short). Depression. GERD (gastroesophageal reflux disease). History of drug abuse. Hypertension. Hypothyroid. Irregular heart rhythm. Trouble in sleeping. Surgical History . History of thyroidectomy PREVIOUS FUNCTIONAL STATUS/SOCIAL/FAMILY SUPPORTS:: Resides in [place], [place] with her employment interviewer, Murtaza. She is independent at baseline in the community. CURRENT FUNCTIONAL STATUS:: Frieda remains inpatient, she was concerned about arranging to picker and sorter load and unload her medications at [facility]; CM notified [facility] and relayed information to RNCC: [place]. CM continues to follow. ADVANCE DIRECTIVES:: None on file. Has patient been provided with info about the portal/API?: Yes Did the patient sign up for the portal?: Yes CODE STATUS:: Full Code INSURANCE COVERAGE / FINANCIAL ISSUES:: Medicare only CURRENT HOME/COMMUNITY SERVICES/EQUIPMENT:: [facility] bi-monthly dosing. PRIMARY CARE PHYSICIAN:: Beena Patel POTENTIAL DISCHARGE NEEDS:: [facility] follow up: home dosages are available for picker and sorter load and unload when Frieda discharges. If she discharges on Tuesday, [facility] would need to provide her dose and last dose letter until she is able to collect her medication on Tuesday. PATIENT/FAMILY EDUCATION NEEDS:: Review discharge instructions, discuss Ask Me Three. ANTICIPATED BARRIERS TO DISCHARGE:: None identified at this time. TRANSPORTATION:: Via private vehicle with significant other, Murtaza. PLAN:: Frieda remains inpatient at this time. She will transport via private vehicle with her significant other, Murtaza.
[2022-08-20] MEDS: Methadone Liquid 10 MG/ML 98 MG PO (09:06)
[2022-08-20] MEDS: Acetaminophen 325 MG TAB PO (09:25)
[2022-08-20] MEDS: DOXYCYCLINE 100 MG in Normal Saline 100 ML IVPB ×2 (10:13→21:11)
--- NOTE | 2022-08-20 14:17 | CHAPLAIN ---
Frieda was sitting at the edge of the bed when I visited. Her IV alarm was going off, so I let nursing know. Frieda was pleasant and reserved. When I asked if there was anything I could do for her, Frieda asked for a Bible. I got her one. She did not seem to be interested in further conversation.
--- NOTE | 2022-08-20 14:30 | PGE_ITS ---
Date of Service Date of service: 08/20/22 Time of Service: 14:30 Assessment and Plan Assessment and plan (1) Acute hypoxemic respiratory failure: Status: Acute Assessment and plan: d/t copd exacerbation. continues to have oxygen requirements. continue to wean oxygen as able. (2) Chronic obstructive pulmonary disease with (acute) exacerbation: Status: Acute Assessment and plan: continue nebulizers, doxycycline and will titrate steroids to burst. O2 supplementation to be weaned as tolerated. (3) Hypertension: Assessment and plan: Continue outpatient medical therapy and discontinue cardiac monitoring. (4) Hypothyroid: Assessment and plan: Patient has a history of thyroid cancer status post thyroidectomy and is on suppressive therapy with Synthroid. Dosages will not be changed during this hospital stay with patient to follow-up as an outpatient with endocrinology or PCP. 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 discussed with DR Flores Subjective Subjective Patient reports: no new complaints, feels better, tolerating liquids well, tolerating a regular diet, shortness of breath and afebrile Interval history since last seen: unable to safely be ambulated without oxygen, requiring 3 liters nc to maintain sats in low 90's Exam Const General: no acute distress Orientation: alert HENMT Head: normal to inspection Ears: external ears normal General nose exam: external nose normal Mouth: moist mucous membranes Eyes General: appearance normal, both eyes and all related structures Neck Neck: normal visual inspection Resp Auscultation: wheezes Cardio Jugular venous pressure: no JVD Rate: regular rate Rhythm: regular rhythm Heart Sounds: no murmurs GI Palpation: soft and nontender Skin General skin exam: no rashes or lesions noted Neuro General: patient alert and patient oriented x3 Extrem General: normal to inspection Psych Mental Status: mental status grossly normal Objective Last Vital Signs Temp 36.3 C L 08/20/22 11:24 Pulse 92 H 08/20/22 11:24 Resp 16 08/20/22 11:24 BP 167/79 H 08/20/22 11:24 Pulse Ox 91 L 08/20/22 11:24 Laboratory Results - last 24 hr 08/19/22 08/19/22 08/19/22 18:06 18:06 18:06 WBC 7.15 RBC 4.60 Hgb 13.0 Hct 40.6 MCV 88 MCH 28.3 MCHC 32.0 RDW 12.9 Plt Count 189 MPV 9.0 Immature Gran % 0.3 Neutrophils % 74.9 Lymphocytes % 16.5 Monocytes % 5.3 Eosinophils % 2.7 Basophils % 0.3 Nucleated RBC % 0.0 Absolute Neutrophils 5.36 Absolute Lymphocytes 1.18 L Absolute Monocytes 0.38 Absolute Eosinophils 0.19 Absolute Basophils 0.02 PT INR APTT Sodium 143 Potassium 3.7 Chloride 104 Carbon Dioxide 30.2 Anion Gap 8.8 BUN 8 Creatinine 0.9 Est GFR (CKD-EPI 2020) 71.39 Glucose 112 H Calcium 8.8 Magnesium 1.9 Total Bilirubin 0.5 AST 22 ALT 28 Alkaline Phosphatase 112 Troponin I < 50 NT-Pro-B Natriuret Pep 98 Total Protein 7.4 Albumin 3.8 TSH 0.17 L Free T4 1.70 H COVID-19 Source Nasopharynx SARS-CoV-2 (PCR) Negative Influenza Type A (PCR) Negative Influenza Type B (PCR) Negative RSV (PCR) Negative 08/19/22 08/19/22 08/20/22 18:06 21:20 06:32 WBC RBC Hgb Hct MCV MCH MCHC RDW Plt Count MPV Immature Gran % Neutrophils % Lymphocytes % Monocytes % Eosinophils % Basophils % Nucleated RBC % Absolute Neutrophils Absolute Lymphocytes Absolute Monocytes Absolute Eosinophils Absolute Basophils PT 9.7 INR 1.0 APTT 26.3 Sodium 144 Potassium 3.6 Chloride 105 Carbon Dioxide 27.9 Anion Gap 11.1 H BUN 8 Creatinine 0.9 Est GFR (CKD-EPI 2020) 71.39 Glucose 173 H Calcium 9.0 Magnesium 1.9 Total Bilirubin 0.4 AST 16 ALT 21 Alkaline Phosphatase 107 Troponin I < 50 NT-Pro-B Natriuret Pep Total Protein 7.0 Albumin 3.4 TSH Free T4 COVID-19 Source SARS-CoV-2 (PCR) Influenza Type A (PCR) Influenza Type B (PCR) RSV (PCR) 08/20/22 06:32 WBC 7.26 RBC 4.41 Hgb 12.6 Hct 38.9 MCV 88 MCH 28.6 MCHC 32.4 RDW 12.8 Plt Count 184 MPV 9.0 Immature Gran % Neutrophils % Lymphocytes % Monocytes % Eosinophils % Basophils % Nucleated RBC % Absolute Neutrophils Absolute Lymphocytes Absolute Monocytes Absolute Eosinophils Absolute Basophils PT INR APTT Sodium Potassium Chloride Carbon Dioxide Anion Gap BUN Creatinine Est GFR (CKD-EPI 2020) Glucose Calcium Magnesium Total Bilirubin AST ALT Alkaline Phosphatase Troponin I NT-Pro-B Natriuret Pep Total Protein Albumin TSH Free T4 COVID-19 Source SARS-CoV-2 (PCR) Influenza Type A (PCR) Influenza Type B (PCR) RSV (PCR) Time Spent with Patient Time Spent with Patient: 25-34 minutes Time was spent: preparing to see the patient(eg.review tests), obtaining and/or reviewing separately otained hiistory, ordering medications,tests, procedures, referring, communicating with other health patient centered care specialist, indepentently interpreting results and counseling the patient
[2022-08-20] MEDS: Normal Saline Flush 10 ML SYR IVP ×2 (15:06→21:15)
[2022-08-20] MEDS: Simvastatin 10 MG TAB PO (19:56)
[2022-08-20] MEDS: Enoxaparin 40 MG/0.4 ML SYR SC (21:11)
[2022-08-20] MEDS: Zolpidem 5 MG TAB PO (21:12)
[2022-08-20] MEDS: Mylanta Suspension 30 ML CUP PO (21:14)
[2022-08-21] VITALS (16 sets, daily range): BP systolic 151–164; BP diastolic 68–79; PULSE 81–98; RESP 1–20; TEMP 36.3–36.8; O2SAT 92–98
[2022-08-21] MEDS: Albuterol/Ipratropium 3 ML UPD VIAL UPD ×4 (05:21→21:18)
[2022-08-21] MEDS: Levothyroxine 25 MCG TAB PO (05:21)
[2022-08-21] MEDS: Levothyroxine 200 MCG TAB PO (05:21)
[2022-08-21] MEDS: Albuterol 2.5 MG/3 ML INH SOLN VIAL UPD (06:46)
--- NOTE | 2022-08-21 06:48 | NUR.NOTE ---
Nursing Note: Patient rang call rouse at 0630. This nurse entered the room and found patient sitting on the edge of the bed with complaints of increased shortness of breath. This nurse observed the patient was tachypnic and her skin appeared flushed. Her lips were blue tinged. This nurse applied pulse oximetry and found the patient satting at 80% on 2L O2 NC. This nurse titrated up the oxygen to 5 L before the patient started to recover. Patient recovered to 90% saturation. Patient given PRN Albuterol updraft 2.5mg as well.
[2022-08-21] MEDS: Lisinopril 5 MG TAB 2.5 MG PO (07:43)
[2022-08-21] MEDS: dilTIAZem CD 180 MG CAPCR PO (07:43)
[2022-08-21] MEDS: Mirtazapine 15 MG TAB 45 MG PO (07:44)
[2022-08-21] MEDS: predniSONE 20 MG TAB 40 MG PO (07:44)
[2022-08-21] MEDS: Docusate Sodium 100 MG CAP 200 MG PO (07:44)
[2022-08-21] MEDS: Mirtazapine 15 MG TAB PO (07:44)
[2022-08-21] MEDS: LORazepam 1 MG TAB PO (07:58)
[2022-08-21] MEDS: Methadone Liquid 10 MG/ML 98 MG PO (08:11)
[2022-08-21] MEDS: DOXYCYCLINE 100 MG in Normal Saline 100 ML IVPB ×2 (10:39→21:18)
--- NOTE | 2022-08-21 14:00 | W.PM.PROGNOT ---
Date of Service Date of service: 08/21/22 Time of Service: 14:00 Assessment and Plan Assessment and plan (1) Acute hypoxemic respiratory failure: Status: Acute Assessment and plan: d/t copd exacerbation. continues to have oxygen requirements. continue to wean oxygen as able Unable to wean today had acute dyspnea and desat to low 80's this am [place], did recover quickly, however continues to require oxygen nc 3 lpm (2) Chronic obstructive pulmonary disease with (acute) exacerbation: Status: Acute Assessment and plan: continue nebulizers, doxycycline and will titrate steroids to burst. O2 supplementation to be weaned as tolerated. (3) Hypertension: Assessment and plan: Continue outpatient medical therapy and discontinue cardiac monitoring. (4) Hypothyroid: Assessment and plan: Patient has a history of thyroid cancer status post thyroidectomy and is on suppressive therapy with Synthroid. Dosages will not be changed during this hospital stay with patient to follow-up as an outpatient with endocrinology or PCP. 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 discussed with Dr Flores Subjective Subjective Patient reports: no new complaints, feels better, tolerating a regular diet, bowel movement, shortness of breath and afebrile; denies diarrhea, nausea or vomiting Interval history since last seen: Continues to require oxygen 3 LPM, she was in the bathroom this am and reports acure SOB. She states she is using IS with great improvement Exam Const General: no acute distress Orientation: alert HENMT Head: normal to inspection Ears: external ears normal General nose exam: external nose normal Mouth: moist mucous membranes Eyes General: appearance normal, both eyes and all related structures Neck Neck: normal visual inspection Resp Auscultation: wheezes Cardio Jugular venous pressure: no JVD Rate: regular rate Rhythm: regular rhythm Heart Sounds: no murmurs GI Palpation: soft and nontender Skin General skin exam: no rashes or lesions noted Neuro General: patient alert and patient oriented x3 Extrem General: normal to inspection Psych Mental Status: mental status grossly normal Objective Last Vital Signs Temp 36.5 C 08/21/22 08:02 Pulse 92 H 08/21/22 10:25 Resp 12 08/21/22 10:25 BP 164/68 H 08/21/22 08:02 Pulse Ox 95 08/21/22 10:25 Reviewed Pertinent PMH: Yes Time Spent with Patient Time Spent with Patient: 25-34 minutes Time was spent: preparing to see the patient(eg.review tests), obtaining and/or reviewing separately otained hiistory, ordering medications,tests, procedures, referring, communicating with other health family day care worker, indepentently interpreting results, counseling the patient and care coordination
[2022-08-21] MEDS: Enoxaparin 40 MG/0.4 ML SYR SC (21:18)
[2022-08-21] MEDS: Simvastatin 10 MG TAB PO (21:18)
[2022-08-21] MEDS: Zolpidem 5 MG TAB PO (21:18)
[2022-08-22] VITALS (16 sets, daily range): BP systolic 129–154; BP diastolic 72–79; PULSE 70–89; RESP 1–20; TEMP 36.3–36.5; O2SAT 86–97
[2022-08-22] MEDS: Albuterol/Ipratropium 3 ML UPD VIAL UPD ×4 (05:06→21:29)
[2022-08-22] MEDS: Levothyroxine 200 MCG TAB PO (05:07)
[2022-08-22] MEDS: Levothyroxine 25 MCG TAB PO (05:07)
[2022-08-22 07:21] LABS: Abs Immature Grans 0.06 10^3/uL (0.0-0.06); Absolute Basophil Count 0.01 10^3/uL (0.0-0.2); Absolute Eosinophil Count 0.01 10^3/uL (0.0-0.7); Absolute Lymphocyte Count 2.69 10^3/uL (1.2-3.4); Absolute Monocyte Count 0.62 10^3/uL (0.1-0.8); Absolute Neutrophil Count 6.09 10^3/uL (1.2-6.7); Basophils % 0.1; Eosinophils % 0.1; HCT 39.9 % (36.0-46.0); HGB 12.7 g/dL (11.2-15.7); Immature Grans % 0.6; Lymphocytes % 28.4; MCH 28.3 pg (27.0-33.0); MCHC 31.8 % (32.0-36.0); MCV 89 fL (80-95); MPV 9.2 fL (8.0-11.0); Monocytes % 6.5; Neutrophils % 64.3; Platelet Count 202 10^3/uL (130-400); RBC 4.49 10^6/uL (3.93-5.22); RDW 13.2 % (11.7-14.6); RDW-SD 43.3 fL; WBC 9.48 10^3/uL (4.4-10.8)
[2022-08-22 07:30] LABS: Anion Gap 6.9 mmol/L (3-11); BUN 18 mg/dL (7-18); CO2 31.1 mmol/L (21.0-32.0); CREATININE 0.9 mg/dL (0.55-1.02); Calcium 8.8 mg/dL (8.5-10.1); Chloride 104 mmol/L (98-107); Estimated GFR 71.39 (mL/min/1.73m2); Glucose 86 mg/dL (74-106); Magnesium 2.1 mg/dL (1.8-2.4); Potassium 3.3 mmol/L (3.5-5.1); Sodium 142 mmol/L (136-145)
[2022-08-22] MEDS: Mirtazapine 15 MG TAB 45 MG PO (07:53)
[2022-08-22] MEDS: Lisinopril 5 MG TAB 2.5 MG PO (07:54)
[2022-08-22] MEDS: dilTIAZem CD 180 MG CAPCR PO (07:54)
[2022-08-22] MEDS: Docusate Sodium 100 MG CAP 200 MG PO (07:55)
[2022-08-22] MEDS: predniSONE 20 MG TAB 40 MG PO (07:55)
[2022-08-22] MEDS: Mirtazapine 15 MG TAB PO (07:58)
[2022-08-22] MEDS: Methadone Liquid 10 MG/ML 98 MG PO (08:39)
[2022-08-22] MEDS: DOXYCYCLINE 100 MG in Normal Saline 100 ML IVPB ×2 (10:08→21:34)
[2022-08-22] MEDS: Potassium Chloride 20 MEQ TABCR PO ×2 (13:51→17:05)
[2022-08-22] MEDS: Mylanta Suspension 30 ML CUP PO (14:54)
--- NOTE | 2022-08-22 15:03 | W.PM.PROGNOT ---
Date of Service Date of service: 08/22/22 Time of Service: 15:03 Assessment and Plan Assessment and plan (1) Acute hypoxemic respiratory failure: Status: Acute Assessment and plan: d/t copd exacerbation. continues to have oxygen requirements. continue to wean oxygen as able Unable to wean today had acute dyspnea and desat to low 80's this am [place], did recover quickly, however continues to require oxygen nc 3 lpm (2) Chronic obstructive pulmonary disease with (acute) exacerbation: Status: Acute Assessment and plan: continue nebulizers, doxycycline and will titrate steroids to burst. O2 supplementation to be weaned as tolerated. (3) Hypertension: Assessment and plan: Continue outpatient medical therapy (4) Hypothyroid: Assessment and plan: Patient has a history of thyroid cancer status post thyroidectomy and is on suppressive therapy with Synthroid. Dosages will not be changed during this hospital stay with patient to follow-up as an outpatient with endocrinology or PCP. 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 discussed with Dr Flores Subjective Subjective Patient reports: no new complaints, tolerating liquids well, tolerating a regular diet and afebrile Interval history since last seen: still requiring oxygen Exam Const General: no acute distress Orientation: alert HENMT Head: normal to inspection Ears: external ears normal General nose exam: external nose normal Mouth: moist mucous membranes Eyes General: appearance normal, both eyes and all related structures Neck Neck: normal visual inspection Resp Auscultation: wheezes Cardio Jugular venous pressure: no JVD Rate: regular rate Rhythm: regular rhythm Heart Sounds: no murmurs GI Palpation: soft and nontender Skin General skin exam: no rashes or lesions noted Neuro General: patient alert and patient oriented x3 Extrem General: normal to inspection Psych Mental Status: mental status grossly normal Objective Last Vital Signs Temp 36.3 C L 08/22/22 07:49 Pulse 77 08/22/22 09:39 Resp 12 08/22/22 09:39 BP 154/79 H 08/22/22 07:49 Pulse Ox 92 08/22/22 12:19 Laboratory Results - last 24 hr 08/22/22 08/22/22 07:00 07:00 WBC 9.48 RBC 4.49 Hgb 12.7 Hct 39.9 MCV 89 MCH 28.3 MCHC 31.8 L RDW 13.2 Plt Count 202 MPV 9.2 Immature Gran % 0.6 Neutrophils % 64.3 Lymphocytes % 28.4 Monocytes % 6.5 Eosinophils % 0.1 Basophils % 0.1 Nucleated RBC % 0.0 Absolute Neutrophils 6.09 Absolute Lymphocytes 2.69 Absolute Monocytes 0.62 Absolute Eosinophils 0.01 Absolute Basophils 0.01 Sodium 142 Potassium 3.3 L Chloride 104 Carbon Dioxide 31.1 Anion Gap 6.9 BUN 18 Creatinine 0.9 Est GFR (CKD-EPI 2020) 71.39 Glucose 86 Calcium 8.8 Magnesium 2.1 Time Spent with Patient Time Spent with Patient: 25-34 minutes Time was spent: preparing to see the patient(eg.review tests), obtaining and/or reviewing separately otained hiistory, ordering medications,tests, procedures, indepentently interpreting results and counseling the patient
[2022-08-22] MEDS: Polyethylene Glycol 3350 17 GM PACKET PO (18:52)
[2022-08-22] MEDS: Docusate Sodium 100 MG CAP PO (18:52)
[2022-08-22] MEDS: Simvastatin 10 MG TAB PO (20:26)
[2022-08-22] MEDS: Acetaminophen 325 MG TAB PO (20:26)
[2022-08-22] MEDS: Enoxaparin 40 MG/0.4 ML SYR SC (21:33)
[2022-08-22] MEDS: Zolpidem 5 MG TAB PO (21:33)
[2022-08-22] MEDS: Normal Saline Flush 10 ML SYR IVP (21:34)
[2022-08-23] VITALS (13 sets, daily range): BP systolic 148–158; BP diastolic 87–90; PULSE 85–114; RESP 5–20; TEMP 36.1–36.5; O2SAT 84–95
--- NOTE | 2022-08-23 | DI.RAD_ITS ---
Exam(s) XR CHEST 2V PA LATERAL EXAM: XR CHEST 2V PA LATERAL CLINICAL HISTORY: Increasing SOB; increased O2 requirement TECHNIQUE: 2D digital imaging was performed of the chest. Two images were obtained. PA and lateral views were obtained. COMPARISON: CR CHEST 2 VIEWS PA,LAT from 06/18/2017 FINDINGS: MEDIASTINUM: Normal. HEART: Normal. PULMONARY VASCULATURE: Normal. LUNGS: There is increased opacity in the medial aspect of the left lung base. The lungs are otherwis e clear. PLEURAL SPACE: No pleural effusion or pneumothorax. BONE:Within normal limits for the patient's age. OTHER FINDINGS:Normal. IMPRESSION: Increased opacity in the medial aspect of the left lung base. This may represent atelectasis or pneu monia. A follow-up chest x-ray to document clearing is recommended in 3-4 weeks. If the finding per sists, a CT scan of the chest should be considered for further evaluation. DATA REPOSITORY: RADIATION DOSE DELIVERED:
--- NOTE | 2022-08-23 | DI.US_ITS ---
Exam(s) US SOFT TISSUE HEAD OR NECK EXAM: US SOFT TISSUE HEAD OR NECK CLINICAL HISTORY: Swollen lymph nodes; hx of thyroid CA w thyroidect. TECHNIQUE: Ultrasound was performed using standard protocol. COMPARISON: No exams were available for comparison FINDINGS: Sonographic assessment utilizing grayscale and color Doppler imaging was performed and targeted to th e area of clinical concern. The patient is status post thyroidectomy. No suspicious cystic or solid masses are seen sonographica lly in the neck. IMPRESSION: Unremarkable examination. DATA REPOSITORY:
[2022-08-23] MEDS: Albuterol/Ipratropium 3 ML UPD VIAL UPD ×4 (04:01→21:27)
[2022-08-23] MEDS: Levothyroxine 200 MCG TAB PO (05:09)
[2022-08-23] MEDS: Promethazine 25 MG TAB PO (05:10)
[2022-08-23] MEDS: Levothyroxine 25 MCG TAB PO (05:10)
[2022-08-23] MEDS: Docusate Sodium 100 MG CAP 200 MG PO (08:07)
[2022-08-23] MEDS: Potassium Chloride 20 MEQ TABCR PO ×3 (08:07→17:27)
[2022-08-23] MEDS: Lisinopril 5 MG TAB 2.5 MG PO (08:07)
[2022-08-23] MEDS: Mirtazapine 15 MG TAB 45 MG PO (08:07)
[2022-08-23] MEDS: Mirtazapine 15 MG TAB PO (08:07)
[2022-08-23] MEDS: Docusate Sodium 100 MG CAP PO ×2 (08:07→20:34)
[2022-08-23] MEDS: predniSONE 20 MG TAB 40 MG PO (08:08)
[2022-08-23] MEDS: dilTIAZem CD 180 MG CAPCR PO (08:08)
[2022-08-23] MEDS: Methadone Liquid 10 MG/ML 98 MG PO (08:08)
[2022-08-23 09:21] LABS: Anion Gap 9.2 mmol/L (3-11); BUN 12 mg/dL (7-18); CO2 30.8 mmol/L (21.0-32.0); CREATININE 1.1 mg/dL (0.55-1.02); Calcium 9.2 mg/dL (8.5-10.1); Chloride 103 mmol/L (98-107); Estimated GFR 56.11 (mL/min/1.73m2); Glucose 102 mg/dL (74-106); Magnesium 2.1 mg/dL (1.8-2.4); Potassium 3.2 mmol/L (3.5-5.1); Sodium 143 mmol/L (136-145)
[2022-08-23] MEDS: DOXYCYCLINE 100 MG in Normal Saline 100 ML IVPB ×2 (09:48→21:09)
[2022-08-23] MEDS: POTASSIUM CHLORIDE 20 MEQ/100 ML BAG 50 MEQ IVPB ×2 (11:03→13:45)
--- NOTE | 2022-08-23 11:07 | PGE_ITS ---
Patient was seen with Taylor Cervantes NP and examined independently. A/P discussed with me. Date of Service Date of service: 08/23/22 Time of Service: 11:07 Assessment and Plan Assessment and plan (1) Acute hypoxemic respiratory failure: Status: Acute Assessment and plan: d/t copd exacerbation. continues to have oxygen requirements. continue to wean oxygen as able Required 6 LPM of oxygen today - appeared to be fluid overloaded - gave a one time dose of furosemide 40 mg IV - diuresed 4.5 litres today. Added daily weights Eval for continued furosemide CXR - Increased opacity in the medial aspect of the left lung base.? This may represent atelectasis or pneumonia.? A follow-up chest x-ray to document clearing is recommended in 3-4 weeks.? If the finding persists, a CT scan of the chest should be considered for further evaluation. Echo - Conclusion Normal left ventricular wall thickness and chamber size.? Estimated ejection fraction is 60%.? Wall motion is normal Normal right ventricular size and function Both atria are normal in size There is no structural or hemodynamically significant valvular disease Mildly dilated ascending aorta measuring 3.5 cm Will recheck ProBNP - 08/19/22 - 98 - - today's is pending (2) Chronic obstructive pulmonary disease with (acute) exacerbation: Status: Acute Assessment and plan: continue nebulizers, doxycycline and will titrate steroids. O2 supplementation to be weaned as tolerated, not tolerating weaning; might require home oxygen; referral to pulmonology out pt (3) Hypertension: Assessment and plan: Continue outpatient medical therapy (4) Hypothyroid: Assessment and plan: Patient has a history of thyroid cancer status post thyroidectomy and is on suppressive therapy with Synthroid. Dosages will not be changed during this hospital stay with patient to follow-up as an outpatient with endocrinology or PCP. 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 discussed with Dr Damian (6) Hypokalemia: Status: Acute Assessment and plan: 3.2 - repleted 20 meq IV x 2 - monitor Subjective Subjective Patient reports: no new complaints, tolerating a regular diet, voiding w/o difficulty, shortness of breath and afebrile; denies flatus, diarrhea or vomiting Interval history since last seen: Jody required 6 lpm of oxygen today while walking with PT/RT. She said she is feeling very discouraged. Exam Const General: no acute distress Orientation: alert [facility] Head: normal to inspection Ears: external ears normal General nose exam: external nose normal Mouth: moist mucous membranes Eyes General: appearance normal, both eyes and all related structures Neck Neck: normal visual inspection Chest Chest: normal inspection of the chest Resp Auscultation: wheezes Cardio Jugular venous pressure: no JVD Rate: regular rate Rhythm: regular rhythm Heart Sounds: murmur systolic GI Palpation: soft and nontender Auscultation: normal bowel sounds Skin General skin exam: no rashes or lesions noted Neuro General: patient alert and patient oriented x3 Extrem General: normal to inspection and pedal edema bilaterally pitting and 1+ Psych Mental Status: mental status grossly normal Objective Last Vital Signs Temp 36.3 C L 08/23/22 07:29 Pulse 89 08/23/22 10:23 Resp 16 08/23/22 10:23 BP 153/90 H 08/23/22 07:29 Pulse Ox 92 08/23/22 10:23 Laboratory Results - last 24 hr 08/23/22 07:57 Sodium 143 Potassium 3.2 L Chloride 103 Carbon Dioxide 30.8 Anion Gap 9.2 BUN 12 Creatinine 1.1 H Est GFR (CKD-EPI 2020) 56.11 Glucose 102 Calcium 9.2 Magnesium 2.1 Time Spent with Patient Time Spent with Patient: 25-34 minutes Time was spent: preparing to see the patient(eg.review tests), obtaining and/or reviewing separately otained hiistory, ordering medications,tests, procedures, referring, communicating with other health rn progressive care unit, indepentently interpreting results, counseling the patient and care coordination
[2022-08-23] MEDS: Polyethylene Glycol 3350 17 GM PACKET PO (11:50)
--- NOTE | 2022-08-23 12:29 | DI.US_ITS ---
APPROVED REPORT EXAM: Comprehensive 2D, Doppler, and color-flow Echocardiogram Patient Location: In-Patient Room/Bed: 231 Enrollment Management Manager: Tanja Bey RDCS (AE) Indications: CHF, HTN Other Information Study Quality: Fair. Technically limited study due to body habitus. Conclusion Normal left ventricular wall thickness and chamber size. Estimated ejection fraction is 60%. Wall m otion is normal Normal right ventricular size and function Both atria are normal in size There is no structural or hemodynamically significant valvular disease Mildly dilated ascending aorta measuring 3.5 cm Wall motion Left Ventricle The left ventricle is normal size. The overall left ventricular systolic function appears normal. The re is normal left ventricular wall thickness. There is normal LV segmental wall motion. There is no v entricular septal defect visualized. LVEF is 60%. Right Ventricle The right ventricle is normal size. The right ventricular systolic function is normal. Atria The left atrium size is normal. The right atrium size is normal. The interatrial septum is intact wit h no evidence for an atrial septal defect. Aortic Valve The aortic valve is normal in structure. Aortic valve is probably trileaflet. There is no aortic valv ular stenosis. No aortic regurgitation is present. Mitral Valve The mitral valve is normal in structure. No evidence of mitral valve stenosis. Trace mitral regurgita tion. Tricuspid Valve The tricuspid valve is normal in structure. There is no tricuspid valve stenosis. Trace tricuspid reg urgitation. Unable to assess PA pressure. Pulmonic Valve Pulmonic valve is not well visualized. There is no pulmonic valvular stenosis. There is no pulmonic v alvular regurgitation. Great Vessels The aortic root is normal in size. The ascending aorta is mildly dilated. Aortic arch is not visualiz ed. IVC is normal in size and collapses >50% with inspiration. Pericardium There is no pericardial effusion. 2D Dimensions IVSD d PLAX 0.95 cm F: 0.6-1.0 LV Vol A2C d MOD 132.6 mL LVPW d PLAX 0.93 cm F: 0.6 - 1.0 LV Vol A4C d MOD 115.0 mL LVID d PLAX 4.79 cm F: 3.8 - 5.2 LA vol/ BSA A2C s A-L 28.2 mL/m2 LVDs 3.25 cm F: 2.2 - 3.5 LA vol/ BSA A4C s A-L 24.1 mL/m2 Ao Root d 2.82 cm F: 2.7 - 3.3 LA Vol/ BSA Biplane s A-L 26.2 mL/m2 RA Area A4C 10.36 cm2 LA Area A4C s MOD 19.03 cm2 RA Vol/ BSA A4C s A-L 9.7 mL/m2 LA Area A2C s MOD 20.66 cm2 Ao Asc Diam d 3.50 cm F: 2.3 - 3.1 LV EF A4C MOD 58.5 % LV EF Teichholz 60.1 % LV EF A2C MOD 58.9 % LVEF (Montalvo's) 58.04 % F: 54 - 74 LV EF Biplane MOD 58.0 % LV Volume 90.41 mL F: 46 - 106 SV 72.37 mL LV Volume Index 40.72 mL/m2 F: 29 - 61 SV Index 32.57 mL/m2 LV Vol Biplane MOD 124.7 mL FS 32.05 % M-Mode TAPSE 1.90 cm (M/F) >1.7 LV Diastology MV E' medial 0.097 (>0.07 m/s) E/A Ratio 0.8 LV E/e MED 6.70 (<14) MV E Vmax 0.65 (0.4-1.3 m/s) MV E' lateral 0.120 (>0.1 m/s) MV A Vmax 0.80 (0.4-1.3 m/s) LV E/e LAT 5.40 (<14) MV E/A Ratio 0.78 MV E/E' medial 6.73 MV E/E' lateral 5.43 Aortic Valve LVOT Area 3.02 cm2 AoV Area Vmax 2.31 cm2 LVOT Vmax 1.48 m/s AoV Area/ BSA (Vmax) 1.04 cm2/m2 LVOT Mean Josh. 0.83 m/s MARTINEZ Mean Josh. 1.86 cm2 LVOT Peak Grad 8.8 mmHg MARTINEZ Mean Josh. Index 0.84 cm2/m2 LVOT Mean Grad 3.5 mmHg LVOT VTI 0.249 m LVOT Diam s 1.95 cm AoV Vmax 1.94 m/s Velocity Ratio 0.76 AoV Mean Josh. 1.35 m/s AoV Peak Grad 15.0 mmHg LVOT SV 75.38 mL AoV Mean Grad 8.2 mmHg AoV VTI 0.302 m AoV Area VTI 2.50 cm2 AoV Area/ BSA (VTI) 1.12 cm/m2 Mitral Valve MV DT 173 (160-240 msec) MV PHT 50 msec MV Area PHT 4.40 cm2 MV VTI 0.212 m MV Area VTI 3.55 (4.0-6.0 cm2) Pulmonary Valve PV Vmax 1.47 (0.5-1.5 m/s) RVOT Peak Gr. 8.04 mmHg PV Peak Grad 8.7 mmHg RVOT Mean Gr. 4.55 mmHg PV Mean Grad 3.9 mmHg RVOT VTI 0.198 m PV VTI 0.193 m RVOT Vmax 1.42 m/s
[2022-08-23] MEDS: Furosemide 40 MG/4 ML VIAL IVP (13:27)
[2022-08-23 13:38] LABS: Lab Add On Test DONE
[2022-08-23 14:31] LABS: TSH 0.33 uIU/mL (0.36-3.74)
[2022-08-23] MEDS: Dexlansoprazole 30 MG CAP 60 MG PO (14:48)
[2022-08-23 15:11] LABS: Lab Add On Test DONE
[2022-08-23 15:38] LABS: C-Reactive Protein 0.13 mg/dL (0.0-0.3)
[2022-08-23 15:49] LABS: Procalcitonin > 0.1 ng/mL
--- NOTE | 2022-08-23 15:57 | PDOC.CMPRO ---
- If Service Date Differs Date of service: 08/23/22 Time of Service: 15:57 Care Management Progress Note S/O: Frieda was out of her room when CM attempted to meet with her. She remains acute, per provider, no change to overall plan at this time. CM continues to follow. A: 62 year old female admitted to [facility] 08/19/22 for COPD exacerbation, acute hypoxic respiratory failure P: Frieda will return home when no longer oxygen dependent. CM to provide last dose letter, and retrieve take home medication from [facility]. She will transport via private vehicle with her significant other, and follow up with her PCP and plan of care as prescribed. CM continues to follow.
--- NOTE | 2022-08-23 16:43 | IN_ITS ---
Date of service: 08/23/22 Time of Service: 09:15 PT Notes Visit Reasons: COPD Exacerbation,Acute Hypoxic Respiratory Failur Physical Therapy Inpatient Initial Evaluation Date: 08/23/2022 Referring Doctor: Taylor Cervantes NP PT Orders: PT CONSULT: D/C non PT-dependent Precautions: Fall. Standard. Activity as tolerated. Patient Profile/Admitting Diagnosis: Jody is a 62-year-old female who presented to the ED on 08/19/2022 due to 2 days worth of cough and shortness of breath accompanied with fever and chills. Patient is diagnosed with acute hypoxemic respiratory failure, COPD exacerbation, hypertension, hypothyroidism, and depression. PMHX: All Active Problems?(Updated 08/19/22 @ 21:33 by Crescencio Short) Bronchitis (Acute) Acute hypoxemic respiratory failure (Acute) Chronic obstructive pulmonary disease with (acute) exacerbation (Acute) Distal radius fracture (Acute) Cellulitis (Acute) Shortness of breath (Acute) Medical History?(Updated 08/19/22 @ 21:33 by Crescencio Short) Depression GERD (gastroesophageal reflux disease) History of drug abuse Hypertension Hypothyroid Irregular heart rhythm Trouble in sleeping Surgical History? History of thyroidectomy Social History/Home Situation: Lives with significant other in a private home with out any entry steps. With all aspects of ADLs prior to admission. Equipment Owned/DME: None Subjective: Reports shortness of breath with ambulation. Denies headache, chest pain, and lightheadedness throughout. Objective: General Observation: Seated on bedside chair. Oxygen supplementation via NC at 1 L/min. Mental Status: Alert and oriented as to person, place, time, and purpose. Able to pay attention, focus, and respond appropriately. Pain: Denies Vital Signs: Saturating at 90% on 1 L at rest. Desaturated to as low as 85% on 1 L after level surface ambulation of about 30 feet. Managed to stay between 88% to 93% with up titration of oxygen supplementation to 2 L/min. ROM: Right Upper Extremity: Shoulder Flexion WFL. Shoulder abduction WFL. Elbow flexion WFL. Wrist flexion WFL. Functional opening and closing of hand WFL. Left Upper Extremity: Shoulder Flexion WFL. Shoulder abduction WFL. Elbow flexion WFL. Wrist flexion WFL. Functional opening and closing of hand WFL. Right Lower Extremity: Hip flexion WFL. Hip abduction WFL. Knee flexion WFL. A nkle dorsiflexion WFL. Ankle plantarflexion WFL. Left Lower Extremity: Hip flexion WFL. Hip abduction WFL. Knee flexion WFL. Ankle dorsiflexion WFL. Ankle plantarflexion WFL. Strength: Right Upper Extremity: Shoulder flexors 4/5. Shoulder abductors 5/5. Elbow flexors 5/5. Elbow extensors 5/5. Hospital Wellness Coordinator strong. Left Upper Extremity: Shoulder flexors 4/5. Shoulder abductors 5/5. Elbow flexors 5/5. Elbow extensors 5/5. Hospital Wellness Coordinator strong. Right Lower Extremity: Hip flexors 4/5. Hip abductors 5/5. Knee flexors 5/5. Knee extensors 4/5. Ankle dorsiflexors 4/5. Ankle plantarflexors 5/5. Left Lower Extremity: Hip flexors 4/5. Hip abductors 5/5. Knee flexors 5/5. Knee extensors 4/5. Ankle dorsiflexors 4/5. Ankle plantarflexors 5/5. Bed Mobility/Transfers: Sit to stand independent Stand to sit independent Gait: Instructed patient with level surface ambulation of 30 feet feet requiring standby assist with patient oxygen level looks going down to 85% on 1 L after 30 feet. Increased oxygen supplementation to 2 L/min for the rest of the walk with patient saturating between 88% to 93% but frequently requiring standing rests. Gait pattern otherwise unremarkable. Balance: Static Sitting: Normal Dynamic Sitting: Normal Static Standing: Good Dynamic Standing: Good Special Tests: Mobility Limitations Standardized Measure [facility] AM-PAC 6 clicks Basic Mobility Inpatient Short Form: Raw Score: 24 CMS Score: 0% deficit Informed Consent/Education: Patient was instructed in purpose of PT consult and plan of care. Agreeable to proceed with established PT POC to achieve personal goals. THERA EX: Instructed patient to perform exercises below every 1-2 hours Chest expansion exercises with shoulder flexion and extension with DBE x 5 Chest expansion exercises with shoulder hor abd/add with DBE x 5 Slow sit to stand x 5 Assessment: Patient was a made independent inside room with oxygen supplementation at 1 L/min for all essential short distance ambulation to and from bathroom. Supervision in the hallway due to desaturation variation. Nurse brenda was informed about desaturation episode with long distance ambulation. Patient presents with clinical signs and symptoms consistent with current/admitting diagnoses that have resulted to mobility limitations, gait instability, generalized weakness, and overall ADL decline as demonstrated by the following impairment level findings: 1. Shortness of breath with desaturation to lower than 88% on 1 L with ambulation tasks Impairments are contributing to the following functional limitations: 1. Increased completion time for mobility ADL performance Patient is [place] a 29585 moderate complexity based on the following: History: 62-year-old female with past medical history as indicated above Examination: Demonstrable impairment in strength, balance, and mobility level with underlying impairments and functional limitations as exhibited above Presentation: Evolving Decision Makin moderate complexity Goals: Goals X1 week 1. Independent gait on level surface with use of no AD for at least 500 feet without report of dyspnea with oxygen saturation above 88% on 1 L Plan of Care/Treatment Plan: 1x/day, 7 days/week x 1 week. Plan of care has been reviewed with the NANNY BABYSITTER providing the service under Physical Therapy direction. Initiate Physical Therapy intervention for pain management as needed, strengthening, bed mobility, transfers, gait, stairs, balance training, and use of assistive device. DISCHARGE RECOMMENDATIONS: [] Home with no services [] [X] Home with services. PT for home safety evaluation and energy conservation techniques. [] Home with outpatient PT [] [] SNF for continued rehabilitation [] [] [facility] [] [] SNF versus LTC based on ability to participate and progress [] TREATMENT CODE/TIME: 37575 x 20 minutes, 76018 x13 minutes beginning at 9:15 AM. Thank you for the opportunity to participate in the care of this patient. Evon Bryant PT, DPT, CLT [facility] [place], [place]
[2022-08-23 19:28] LABS: Lab Add On Test DONE
[2022-08-23 19:50] LABS: NT-proBNP 46 pg/mL (<300)
[2022-08-23] MEDS: Simvastatin 10 MG TAB PO (20:26)
[2022-08-23] MEDS: Milk of Magnesia 30 ML CUP PO (20:34)
[2022-08-23] MEDS: Enoxaparin 40 MG/0.4 ML SYR SC (21:09)
[2022-08-23] MEDS: Normal Saline Flush 10 ML SYR IVP (21:10)
[2022-08-23] MEDS: Acetaminophen 325 MG TAB PO (21:21)
[2022-08-23] MEDS: Zolpidem 5 MG TAB PO (22:27)
[2022-08-24] VITALS (11 sets, daily range): BP systolic 118–151; BP diastolic 67–78; PULSE 65–106; RESP 7–22; TEMP 36.3–37; O2SAT 90–93
--- NOTE | 2022-08-24 | DI.CT_ITS ---
Exam(s) CT CHEST WO EXAM: CT CHEST WO CLINICAL HISTORY: hypoxia TECHNIQUE: Imaging Protocol: Axial computed tomography images with coronal and sagittal reformatted images were created and reviewed CONTRAST MATERIAL: Noncontrast COMPARISON: CT CT CHEST PE CTA from 08/19/2022 CR XR CHEST 2V PA LATERAL from 08/23/2022 FINDINGS: Pulmonary parenchyma: Lungs much better inflated on the current exam. Complete atelectasis of the le ft lower lobe.. No obstructing mass visible. Improvement previously noted right lower lobe densities . Tracheobronchial tree: No bronchiectasis. Left lower lobe mucous plugging versus aspiration.. Mediastinum and Madeline: No dominant adenopathy or fluid collection. Pleura: No effusion or pneumothorax. Heart: The heart is not dilated. No coronary artery calcifications are seen. Aorta: Thoracic aorta non-dilated. Upper abdomen: Atrophic pancreas. Status post cholecystectomy. Bones: Scoliosis anddegenerative changes. Soft tissues: Unremarkable. IMPRESSION: Atelectasis of the left lower lobe, worsening from prior. Left lower lobe mucous plugging versus asp irated material. No visible mass or foreign body. RADIATION DOSE DELIVERED: 722.67mGy.cm Total DLP DATA REPOSITORY: All CT scans at this facility are submitted to the National Radiology Data Registry (NRDR) Dose Index Registry (DIR) with the [employer] ([employer]). RADIATION OPTIMIZATION: All CT scans at this facility use at least one of these dose optimization te chniques: automated exposure control; mA and/or kV adjustment per patient size (includes targeted exa ms where dose is matched to clinical indication); or iterative reconstruction.
[2022-08-24] MEDS: Albuterol/Ipratropium 3 ML UPD VIAL UPD ×4 (03:12→21:35)
[2022-08-24 06:16] LABS: Abs Immature Grans 0.04 10^3/uL (0.0-0.06); Absolute Basophil Count 0.03 10^3/uL (0.0-0.2); Absolute Eosinophil Count 0.08 10^3/uL (0.0-0.7); Absolute Lymphocyte Count 3.66 10^3/uL (1.2-3.4); Basophils % 0.3; Eosinophils % 0.9; HCT 42.7 % (36.0-46.0); HGB 13.5 g/dL (11.2-15.7); Immature Grans % 0.4; Lymphocytes % 39.3; MCH 28.3 pg (27.0-33.0); MCHC 31.6 % (32.0-36.0); MCV 90 fL (80-95); MPV 9.5 fL (8.0-11.0); Monocytes % 7.5; Neutrophils % 51.6; Platelet Count 218 10^3/uL (130-400); RBC 4.77 10^6/uL (3.93-5.22); RDW 13.2 % (11.7-14.6); RDW-SD 43.1 fL; WBC 9.31 10^3/uL (4.4-10.8)
[2022-08-24 06:30] LABS: Anion Gap 8.5 mmol/L (3-11); BUN 16 mg/dL (7-18); CO2 31.5 mmol/L (21.0-32.0); CREATININE 0.9 mg/dL (0.55-1.02); Calcium 8.9 mg/dL (8.5-10.1); Chloride 102 mmol/L (98-107); Estimated GFR 71.39 (mL/min/1.73m2); Glucose 88 mg/dL (74-106); Magnesium 2.5 mg/dL (1.8-2.4); Potassium 3.7 mmol/L (3.5-5.1); Sodium 142 mmol/L (136-145)
[2022-08-24] MEDS: Levothyroxine 200 MCG TAB PO (06:34)
[2022-08-24] MEDS: Levothyroxine 25 MCG TAB PO (06:34)
[2022-08-24] MEDS: predniSONE 20 MG TAB 40 MG PO (07:42)
[2022-08-24] MEDS: Dexlansoprazole 30 MG CAP 60 MG PO (07:42)
[2022-08-24] MEDS: dilTIAZem CD 180 MG CAPCR PO (07:43)
[2022-08-24] MEDS: Lisinopril 5 MG TAB 2.5 MG PO (07:43)
[2022-08-24] MEDS: Mirtazapine 15 MG TAB PO (07:43)
[2022-08-24] MEDS: Docusate Sodium 100 MG CAP 200 MG PO (07:43)
[2022-08-24] MEDS: Mirtazapine 15 MG TAB 45 MG PO (07:43)
[2022-08-24] MEDS: Potassium Chloride 20 MEQ TABCR PO (07:43)
[2022-08-24] MEDS: Docusate Sodium 100 MG CAP PO (07:44)
[2022-08-24] MEDS: Polyethylene Glycol 3350 17 GM PACKET PO (07:44)
[2022-08-24] MEDS: Promethazine 25 MG TAB PO (08:28)
[2022-08-24] MEDS: Methadone Liquid 10 MG/ML 98 MG PO (08:29)
[2022-08-24] MEDS: Furosemide 40 MG/4 ML VIAL IVP ×2 (08:29→15:23)
[2022-08-24] MEDS: Acetaminophen 325 MG TAB PO (08:39)
--- NOTE | 2022-08-24 08:39 | CMPROGNOTE_ITS ---
- If Service Date Differs Date of service: 08/24/22 Time of Service: 08:39 Care Management Progress Note S/O: Frieda is sitting up in bed when CM met with her. Per provider, clinically she is not improving despite treatment, therefor additional imaging is ordered and [facility] [place]. Frieda is trying to stay busy doing word puzzles, watching TV and talking with family on the phone. She denies any new concerns or needs at this time. CM will continue to follow. A: 62 year old female admitted to [facility] 08/19/22 for COPD exacerbation, acute hypoxic respiratory failure P: Frieda will return home when no longer oxygen dependent. CM to provide last dose letter, and retrieve take home medication from [facility]. She will transport via private vehicle with her significant other, and follow up with her PCP and plan of care as prescribed. CM continues to follow.
[2022-08-24] MEDS: DOXYCYCLINE 100 MG in Normal Saline 100 ML IVPB (09:35)
[2022-08-24] MEDS: predniSONE 20 MG TAB PO (12:07)
[2022-08-24] MEDS: guaiFENesin 600 MG TABCR PO ×2 (12:07→20:59)
[2022-08-24] MEDS: LORazepam 1 MG TAB PO (12:46)
[2022-08-24 12:59] LABS: COVID-19 PCR Negative (Negative); Influenza A PCR Negative (Negative); Influenza B PCR Negative (Negative); RSV PCR Negative (Negative)
[2022-08-24 13:24] LABS: Source Nasopharynx
[2022-08-24] MEDS: Budesonide/Formoterol 160/4.5 6 GM 60 PUFF INH IH ×2 (13:30→19:32)
--- NOTE | 2022-08-24 14:21 | PGE_ITS ---
Date of Service Date of service: 08/24/22 Time of Service: 14:21 Assessment and Plan Assessment and plan (1) Acute hypoxemic respiratory failure: Status: Acute Assessment and plan: with ongoing increasing oxygen requirements. now on heated high flow. d/t aspiration continue aggressive pulmonary toilet add mucinex broaden antibiotics (2) Aspiration into lower respiratory tract: Status: Acute Assessment and plan: aspiration event prior to admission is likely etiology for copd exac and ongoing resp failure. broaden to zosyn, continue nebs, mucinex added. wean oxygen as able, respiratory following. (3) Hypertension: Assessment and plan: Continue outpatient medical therapy (4) Hypothyroid: Assessment and plan: Patient has a history of thyroid cancer status post thyroidectomy and is on suppressive therapy with Synthroid. Dosages will not be changed during this hospital stay with patient to follow-up as an outpatient with endocrinology or PCP. 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 (6) Hypokalemia: Status: Resolved Assessment and plan: repleted (7) Discharge planning issues: Status: Acute Assessment and plan: anticipate home with no services once medically stable. discussed with Dr Damian Subjective Subjective Patient reports: tolerating liquids well, tolerating a regular diet, voiding w/o difficulty, shortness of breath and afebrile Interval history since last seen: increasing oxygen requirements, volume on incentive spirometry decreasing. no fever, eating and drinking well. was experiencing reflux symptoms requesting her dexilant be restarted yesterday. Exam Const General: cooperative, comfortable and no acute distress Nutritional Appearance: obese Orientation: alert, awake and oriented x3 HENMT Head: normal to inspection Mouth: moist mucous membranes Eyes General: appearance normal, both eyes and all related structures Neck Neck: normal visual inspection Chest Chest: normal inspection of the chest Resp Effort & Inspection: normal respiratory effort Auscultation: wheezes Cardio Rate: regular rate Rhythm: regular rhythm Heart Sounds: murmur systolic GI Palpation: soft and nontender Auscultation: normal bowel sounds Skin General skin exam: no rashes or lesions noted Neuro General: patient alert, patient awake and patient oriented x3 Extrem General: normal to inspection and pedal edema bilaterally pitting and 1+ Psych Mental Status: mental status grossly normal Objective Last Vital Signs Temp 36.3 C L 08/24/22 11:08 Pulse 106 H 08/24/22 11:08 Resp 22 08/24/22 11:08 BP 136/67 08/24/22 11:08 Pulse Ox 92 08/24/22 11:08 Laboratory Results - last 24 hr 08/23/22 08/23/22 08/23/22 07:57 15:06 15:06 WBC RBC Hgb Hct MCV MCH MCHC RDW Plt Count MPV Immature Gran % Neutrophils % Lymphocytes % Monocytes % Eosinophils % Basophils % Nucleated RBC % Absolute Neutrophils Absolute Lymphocytes Absolute Monocytes Absolute Eosinophils Absolute Basophils Sodium Potassium Chloride Carbon Dioxide Anion Gap BUN Creatinine Est GFR (CKD-EPI 2020) Glucose Calcium Magnesium C-Reactive Protein 0.13 NT-Pro-B Natriuret Pep Procalcitonin > 0.1 TSH 0.33 L COVID-19 Source SARS-CoV-2 (PCR) Influenza Type A (PCR) Influenza Type B (PCR) RSV (PCR) Add-On Test Request 08/23/22 08/23/22 08/23/22 15:10 15:10 15:10 WBC RBC Hgb Hct MCV MCH MCHC RDW Plt Count MPV Immature Gran % Neutrophils % Lymphocytes % Monocytes % Eosinophils % Basophils % Nucleated RBC % Absolute Neutrophils Absolute Lymphocytes Absolute Monocytes Absolute Eosinophils Absolute Basophils Sodium Potassium Chloride Carbon Dioxide Anion Gap BUN Creatinine Est GFR (CKD-EPI 2020) Glucose Calcium Magnesium C-Reactive Protein NT-Pro-B Natriuret Pep 46 Procalcitonin TSH COVID-19 Source SARS-CoV-2 (PCR) Influenza Type A (PCR) Influenza Type B (PCR) RSV (PCR) Add-On Test Request DONE DONE 08/24/22 08/24/22 08/24/22 05:14 05:14 11:45 WBC 9.31 RBC 4.77 Hgb 13.5 Hct 42.7 MCV 90 MCH 28.3 MCHC 31.6 L RDW 13.2 Plt Count 218 MPV 9.5 Immature Gran % 0.4 Neutrophils % 51.6 Lymphocytes % 39.3 Monocytes % 7.5 Eosinophils % 0.9 Basophils % 0.3 Nucleated RBC % 0.0 Absolute Neutrophils 4.80 Absolute Lymphocytes 3.66 H Absolute Monocytes 0.70 Absolute Eosinophils 0.08 Absolute Basophils 0.03 Sodium 142 Potassium 3.7 Chloride 102 Carbon Dioxide 31.5 Anion Gap 8.5 BUN 16 Creatinine 0.9 Est GFR (CKD-EPI 2020) 71.39 Glucose 88 Calcium 8.9 Magnesium 2.5 H C-Reactive Protein NT-Pro-B Natriuret Pep Procalcitonin TSH COVID-19 Source Nasopharynx SARS-CoV-2 (PCR) Negative Influenza Type A (PCR) Negative Influenza Type B (PCR) Negative RSV (PCR) Negative Add-On Test Request Time Spent with Patient Time Spent with Patient: 25-34 minutes Time was spent: preparing to see the patient(eg.review tests), obtaining and/or reviewing separately otained hiistory, ordering medications,tests, procedures, referring, communicating with other health health care facility administrator, indepentently interpreting results and counseling the patient
--- NOTE | 2022-08-24 14:57 | CHAPLAIN ---
Frieda was sitting up on the edge of her bed when I visited. She said they have figured out why I'm not getting better, so that's good. She has been doing word games and watching tv. Frieda said she's usually a quiet person so she hasn't really been bored here. When we met last week she asked for a Bible and I noticed today she has a rosary on her bedside table.
--- NOTE | 2022-08-24 15:02 | PT.INTREAT ---
Date of service: 08/24/22 Time of Service: 14:35 PT Notes Visit Reasons: COPD Exacerbation,Acute Hypoxic Respiratory Failur Inpatient Physical Therapy Treatment Note [facility] Date: 08/24/2022 PRECAUTIONS: Activity as tolerated, monitor SaO2 SUBJECTIVE: Frieda is pleasant and agreeable to participating in PT. She reports that she is feeling better, psychologically, now that she has more information regarding her health/medical status. OBJECTIVE: PAIN: No c/o pain BED MOBILITY/TRANSFERS Supine-sit: I Sit-supine: I Sit-stand: I Stand-sit: I Bed-Chair: I Chair-bed: I GAIT Assistive Device: No AD Weight bearing: Full Assist: I Distance: ~100' Deviation: Gait unremarkable, limited distance due to requiring HiFlo supplemental oxygen VITALS: 87-90% on 40L at 36% FiO2 with all activity THEREX: Patient demonstrates compliance with HEP, requiring minimal cueing throughout for proper exercise performance. ASSESSMENT: Patient tolerated session well without complaint. She does not report SOB with activity. Gait training is limited due to HiFlo supplemental oxygen requirement at this time. PLAN: Continue progressing toward goal set by evaluating PT. TREATMENT CODE/TIME: 25 minutes; 57595, [id number] (14:35)
[2022-08-24] MEDS: PIPERACILLIN/TAZO 3.375 GM in Normal Saline 50 ML IVPB ×2 (15:15→21:00)
[2022-08-24] MEDS: Milk of Magnesia 30 ML CUP PO (15:31)
[2022-08-24] MEDS: Simvastatin 10 MG TAB PO (20:59)
[2022-08-24] MEDS: Normal Saline Flush 10 ML SYR IVP (21:00)
[2022-08-24] MEDS: Normal Saline 500 ML 30 ML IV (21:00)
[2022-08-24] MEDS: Zolpidem 5 MG TAB PO (21:47)
[2022-08-24] MEDS: Enoxaparin 40 MG/0.4 ML SYR SC (21:47)
[2022-08-25] VITALS (14 sets, daily range): BP systolic 115–138; BP diastolic 68–88; PULSE 90–109; RESP 4–20; TEMP 36.3–37; O2SAT 87–96
[2022-08-25] MEDS: PIPERACILLIN/TAZO 3.375 GM in Normal Saline 50 ML IVPB ×4 (02:34→20:12)
[2022-08-25] MEDS: Albuterol/Ipratropium 3 ML UPD VIAL UPD ×4 (04:10→21:22)
[2022-08-25] MEDS: Levothyroxine 200 MCG TAB PO (06:08)
[2022-08-25] MEDS: Levothyroxine 25 MCG TAB PO (06:08)
[2022-08-25 06:13] LABS: Abs Immature Grans 0.07 10^3/uL (0.0-0.06); Absolute Basophil Count 0.01 10^3/uL (0.0-0.2); Absolute Eosinophil Count 0.04 10^3/uL (0.0-0.7); Absolute Lymphocyte Count 2.67 10^3/uL (1.2-3.4); Absolute Monocyte Count 0.81 10^3/uL (0.1-0.8); Basophils % 0.1; Eosinophils % 0.4; HCT 44.6 % (36.0-46.0); HGB 14.4 g/dL (11.2-15.7); Immature Grans % 0.6; MCH 28.3 pg (27.0-33.0); MCHC 32.3 % (32.0-36.0); MCV 88 fL (80-95); MPV 9.1 fL (8.0-11.0); Monocytes % 7.3; Neutrophils % 67.6; Platelet Count 204 10^3/uL (130-400); RBC 5.09 10^6/uL (3.93-5.22); RDW 13.3 % (11.7-14.6); RDW-SD 42.9 fL; WBC 11.13 10^3/uL (4.4-10.8)
[2022-08-25 06:17] LABS: Absolute Neutrophil Count 7.52 10^3/uL (1.2-6.7)
[2022-08-25 06:31] LABS: Anion Gap 9.5 mmol/L (3-11); BUN 20 mg/dL (7-18); CO2 31.5 mmol/L (21.0-32.0); CREATININE 1.1 mg/dL (0.55-1.02); Calcium 9.2 mg/dL (8.5-10.1); Chloride 100 mmol/L (98-107); Estimated GFR 56.11 (mL/min/1.73m2); Glucose 96 mg/dL (74-106); Magnesium 2.6 mg/dL (1.8-2.4); Potassium 3.7 mmol/L (3.5-5.1); Sodium 141 mmol/L (136-145)
[2022-08-25] MEDS: Budesonide/Formoterol 160/4.5 6 GM 60 PUFF INH IH ×2 (08:28→20:13)
[2022-08-25] MEDS: Mirtazapine 15 MG TAB 45 MG PO (08:51)
[2022-08-25] MEDS: predniSONE 20 MG TAB 60 MG PO (08:52)
[2022-08-25] MEDS: Docusate Sodium 100 MG CAP 200 MG PO (08:52)
[2022-08-25] MEDS: dilTIAZem CD 180 MG CAPCR PO (08:52)
[2022-08-25] MEDS: Lisinopril 5 MG TAB 2.5 MG PO (08:53)
[2022-08-25] MEDS: Furosemide 40 MG/4 ML VIAL IVP (08:53)
[2022-08-25] MEDS: guaiFENesin 600 MG TABCR PO ×2 (08:53→20:13)
[2022-08-25] MEDS: Dexlansoprazole 30 MG CAP 60 MG PO (08:53)
[2022-08-25] MEDS: Mirtazapine 15 MG TAB PO (08:56)
[2022-08-25] MEDS: Methadone Liquid 10 MG/ML 98 MG PO (09:08)
--- NOTE | 2022-08-25 10:49 | W.PM.PROGNOT ---
Date of Service Date of service: 08/25/22 Time of Service: 10:49 Assessment and Plan Assessment and plan (1) Acute hypoxemic respiratory failure: Status: Acute Assessment and plan: with ongoing increasing oxygen requirements. now on heated high flow. d/t aspiration continue aggressive pulmonary toilet add mucinex broaden antibiotics (2) Aspiration into lower respiratory tract: Status: Acute Assessment and plan: aspiration event prior to admission is likely etiology for copd exac and ongoing resp failure. broaden to zosyn, continue nebs, mucinex added. wean oxygen as able, respiratory following. (3) Hypertension: Assessment and plan: Continue outpatient medical therapy (4) Hypothyroid: Assessment and plan: Patient has a history of thyroid cancer status post thyroidectomy and is on suppressive therapy with Synthroid. Dosages will not be changed during this hospital stay with patient to follow-up as an outpatient with endocrinology or PCP. 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 (6) Hypokalemia: Status: Resolved Assessment and plan: repleted (7) Discharge planning issues: Status: Acute Assessment and plan: anticipate home with no services once medically stable. discussed with Dr Damian Subjective Subjective Patient reports: feels better, tolerating liquids well, tolerating a regular diet, shortness of breath (improving) and afebrile Interval history since last seen: weaned down to 1 liter nc, off heated high flow Exam Const General: cooperative, comfortable and no acute distress Nutritional Appearance: obese Orientation: alert, awake and oriented x3 HENGA Head: normal to inspection Mouth: moist mucous membranes Eyes General: appearance normal, both eyes and all related structures Neck Neck: normal visual inspection Chest Chest: normal inspection of the chest Resp Effort & Inspection: normal respiratory effort Auscultation: wheezes Cardio Rate: regular rate Rhythm: regular rhythm Heart Sounds: murmur systolic GI Palpation: soft and nontender Auscultation: normal bowel sounds Skin General skin exam: no rashes or lesions noted Neuro General: patient alert, patient awake and patient oriented x3 Extrem General: normal to inspection and pedal edema bilaterally pitting and 1+ Psych Mental Status: mental status grossly normal Objective Last Vital Signs Temp 36.3 C L 08/25/22 07:16 Pulse 109 H 08/25/22 10:22 Resp 20 08/25/22 10:22 BP 138/88 08/25/22 07:16 Pulse Ox 91 L 08/25/22 10:22 Laboratory Results - last 24 hr 08/24/22 08/25/22 08/25/22 11:45 06:02 06:02 WBC 11.13 H RBC 5.09 Hgb 14.4 Hct 44.6 MCV 88 MCH 28.3 MCHC 32.3 RDW 13.3 Plt Count 204 MPV 9.1 Immature Gran % 0.6 Neutrophils % 67.6 Lymphocytes % 24.0 Monocytes % 7.3 Eosinophils % 0.4 Basophils % 0.1 Nucleated RBC % 0.0 Absolute Neutrophils 7.52 H Absolute Lymphocytes 2.67 Absolute Monocytes 0.81 H Absolute Eosinophils 0.04 Absolute Basophils 0.01 Sodium 141 Potassium 3.7 Chloride 100 Carbon Dioxide 31.5 Anion Gap 9.5 BUN 20 H Creatinine 1.1 H Est GFR (CKD-EPI 2020) 56.11 Glucose 96 Calcium 9.2 Magnesium 2.6 H COVID-19 Source Nasopharynx SARS-CoV-2 (PCR) Negative Influenza Type A (PCR) Negative Influenza Type B (PCR) Negative RSV (PCR) Negative Time Spent with Patient Time Spent with Patient: 25-34 minutes Time was spent: preparing to see the patient(eg.review tests), obtaining and/or reviewing separately otained hiistory, ordering medications,tests, procedures, referring, communicating with other health family day carer, indepentently interpreting results and counseling the patient
--- NOTE | 2022-08-25 11:15 | PDOC.CMPRO ---
- If Service Date Differs Date of service: 08/25/22 Time of Service: 11:15 Care Management Progress Note S/O: Frieda is sitting in her chair when CM met with her. She is currently on 1L NC and feels better overall today. She is hopeful to be able to wean off O2 completely, but also knows there is a chance she may need to go home with new home O2. Per provider, Frieda may be medically ready in 1-2 day. RT is following. CM will follow. A: 62 year old female admitted to [facility] 08/19/22 for COPD exacerbation, acute hypoxic respiratory failure P: Anticipate, Frieda will return home once medically stable. CM to provide last dose letter, and retrieve take home medication from [facility]. She will transport via private vehicle with her significant other, and follow up with her PCP and plan of care as prescribed. CM continues to follow.
[2022-08-25] MEDS: Normal Saline Flush 10 ML SYR IVP (20:13)
[2022-08-25] MEDS: Simvastatin 10 MG TAB PO (20:13)
[2022-08-25] MEDS: Zolpidem 5 MG TAB PO (21:22)
[2022-08-25] MEDS: Enoxaparin 40 MG/0.4 ML SYR SC (21:22)
--- NOTE | 2022-08-26 | DI.US_ITS ---
Exam(s) US UPPER EXTREMITY VENOUS RT EXAM: US UPPER EXTREMITY VENOUS RT CLINICAL HISTORY: swelling RUE post IV removal on 08/24. TECHNIQUE: Ultrasound examination of the right upper extremity venous system(s) is performed using g rayscale, color-flow, and spectral Doppler analysis. COMPARISON: No exams were available for comparison FINDINGS: The right internal jugular, axillary, subclavian, basilic, brachial, radial, and ulnar veins are pat ent without evidence of thrombosis. There is partially occlusive thrombus seen in the right cephalic vein in the forearm. The more proximal cephalic vein in the upper arm is patent. IMPRESSION: Partially occlusive thrombus in the cephalic vein in the forearm region. DATA REPOSITORY:
[2022-08-26] MEDS: PIPERACILLIN/TAZO 3.375 GM in Normal Saline 50 ML IVPB ×4 (02:05→20:54)
[2022-08-26] MEDS: Normal Saline Flush 10 ML SYR IVP ×2 (02:06→08:13)
[2022-08-26] MEDS: Albuterol/Ipratropium 3 ML UPD VIAL UPD ×4 (03:00→20:56)
[2022-08-26] MEDS: Levothyroxine 200 MCG TAB PO (05:31)
[2022-08-26] MEDS: Levothyroxine 25 MCG TAB PO (05:31)
[2022-08-26 07:41] VITALS: BP 147/75; PULSE 87; RESP 18; TEMP 36.5; O2SAT 92
[2022-08-26] MEDS: Budesonide/Formoterol 160/4.5 6 GM 60 PUFF INH IH ×2 (08:04→20:55)
[2022-08-26] MEDS: predniSONE 20 MG TAB 60 MG PO (08:11)
[2022-08-26] MEDS: Dexlansoprazole 30 MG CAP 60 MG PO (08:11)
[2022-08-26] MEDS: Docusate Sodium 100 MG CAP 200 MG PO (08:11)
[2022-08-26] MEDS: Mirtazapine 15 MG TAB PO (08:12)
[2022-08-26] MEDS: guaiFENesin 600 MG TABCR PO ×2 (08:12→20:54)
[2022-08-26] MEDS: Mirtazapine 15 MG TAB 45 MG PO (08:12)
[2022-08-26] MEDS: Lisinopril 5 MG TAB 2.5 MG PO (08:12)
[2022-08-26] MEDS: dilTIAZem CD 180 MG CAPCR PO (08:12)
[2022-08-26] MEDS: Methadone Liquid 10 MG/ML 98 MG PO (08:13)
[2022-08-26 10:25] VITALS: PULSE 102; RESP 12; RESP 4; RESP 8; O2SAT 89
[2022-08-26 10:33] VITALS: PULSE 105; RESP 1; RESP 16; RESP 8; O2SAT 89
[2022-08-26 11:05] LABS: Abs Immature Grans 0.09 10^3/uL (0.0-0.06); Absolute Basophil Count 0.02 10^3/uL (0.0-0.2); Absolute Eosinophil Count 0.03 10^3/uL (0.0-0.7); Absolute Lymphocyte Count 1.57 10^3/uL (1.2-3.4); Absolute Monocyte Count 0.52 10^3/uL (0.1-0.8); Absolute Neutrophil Count 8.01 10^3/uL (1.2-6.7); Basophils % 0.2; Eosinophils % 0.3; HGB 14.4 g/dL (11.2-15.7); Immature Grans % 0.9; Lymphocytes % 15.3; MCH 28.5 pg (27.0-33.0); MCV 89 fL (80-95); MPV 9.2 fL (8.0-11.0); Monocytes % 5.1; Neutrophils % 78.2; Platelet Count 212 10^3/uL (130-400); RBC 5.05 10^6/uL (3.93-5.22); RDW 13.3 % (11.7-14.6); RDW-SD 43.2 fL; WBC 10.24 10^3/uL (4.4-10.8)
[2022-08-26 11:21] LABS: Anion Gap 6.7 mmol/L (3-11); BUN 18 mg/dL (7-18); CO2 31.3 mmol/L (21.0-32.0); CREATININE 1.2 mg/dL (0.55-1.02); Calcium 9.1 mg/dL (8.5-10.1); Chloride 100 mmol/L (98-107); Estimated GFR 50.55 (mL/min/1.73m2); Glucose 117 mg/dL (74-106); Magnesium 2.4 mg/dL (1.8-2.4); Potassium 3.3 mmol/L (3.5-5.1); Sodium 138 mmol/L (136-145)
--- NOTE | 2022-08-26 11:27 | CMPROGNOTE_ITS ---
- If Service Date Differs Date of service: 08/26/22 Time of Service: 11:27 Care Management Progress Note S/O: Frieda remains acute, per provider. ST eval is ordered due to increased difficulty swallowing meds. Frieda is sitting on the side of her bed when CM met with her. She is pleasant and easily engages in conversation. Family called while CM was in the room, pt denies any concerns at this time. Frieda understands that there is a chance she may need to go home with new home O2. CM will follow. A: 62 year old female admitted to [facility] 08/19/22 for COPD exacerbation, acute hypoxic respiratory failure P: Anticipate, Frieda will return home once medically stable. CM to provide last dose letter, and retrieve take home medication from [facility]. She will transport via private vehicle with her significant other, and follow up with her PCP and plan of care as prescribed. CM continues to follow.
[2022-08-26] MEDS: Potassium Chloride Liquid 20 MEQ PKT 40 MEQ PO (11:51)
[2022-08-26 12:16] LABS: Procalcitonin < 0.1 ng/mL
[2022-08-26 15:39] VITALS: BP 121/66; PULSE 91; RESP 22; TEMP 36.7; O2SAT 90
[2022-08-26] MEDS: Milk of Magnesia 30 ML CUP PO (16:46)
[2022-08-26 16:56] VITALS: PULSE 93; RESP 16; RESP 8; O2SAT 89
[2022-08-26 17:01] VITALS: PULSE 102; RESP 16; RESP 8; O2SAT 89
--- NOTE | 2022-08-26 17:41 | W.PM.PROGNOT ---
Date of Service Date of service: 08/26/22 Time of Service: 17:42 Assessment and Plan Assessment and plan (1) Acute hypoxemic respiratory failure: Status: Acute Assessment and plan: O2 requirements have now stabilized at about 1 L of O2 by MN; however, the patient is still symptomatic. This is due to likely mucuous plugging vs aspirated material in the airways and some degree of pneumonitis. Discussed with pulmonology at [facility]: would benefit from a bronch but no beds and no OR availability for a [id number] bronch at [facility] until next week. Discussed with [facility] who will be able to accommodate the patient for a [id number] transfer tomorrow (accepting Dr Hart). Continue zosyn, steroids, mucinex, pulmonary toilet. (2) Aspiration into lower respiratory tract: Status: Acute Assessment and plan: As above I did obtain a speech therapy consult as the patient states that aspiration on pills is not that uncommon for her. (3) Hypertension: Assessment and plan: Continue diltiazem. (4) Hypothyroid: Assessment and plan: H/o thyroid cancer status post thyroidectomy, on synthroid. Outpatient f/u with endocrinology. TSH 0.33, but low TSH is sometimes desireable in patients with h/o thyroid cancer. US soft tissue neck negative. (5) Depression: Assessment and plan: Continue remeron (6) Hypokalemia: Status: Resolved Assessment and plan: Recheck labs in am (7) DVT prophylaxis: Status: Acute Assessment and plan: TEDs. Holding lovenox in anticipation of procedure tomorrow. (8) Discharge planning issues: Status: Acute Assessment and plan: Full code For [id number] transfer to [facility] tomorrow by Dr Hart. Subjective Subjective Interval history since last seen: feels better, but still reports feeling short of breath and like something is stuck in her lung and moves up and down when she inhales and exhales. Denies dizziness, CP, nausea. Has been working with IS and acapella. Shows me a culture cup with yellowish secretions. She is in agreement with going [id number] to [facility] for bronchoscopy. (No beds and no availability for ytyk-sok-aruz bronchoscopy at [facility] until next week; Dr Hart at [facility] accepts the patient in a [id number] transfer). Exam Narrative Exam Narrative: General: Pleasant middle-aged female who is A&Ox3, on 1L of O2 by NC, appears relatively comfortable at rest HEENT: EOMI, MMM Heart: RRR, no m/r/g Lungs: expiratory wheeze vs stridor L lower lung field Abdomen: soft, nontender, nondistended Extremities: Trace edema BLEs Objective Last Vital Signs Temp 36.7 C 08/26/22 15:39 Pulse 102 H 08/26/22 17:01 Resp 16 08/26/22 17:01 BP 121/66 08/26/22 15:39 Pulse Ox 89 L 08/26/22 17:01 Laboratory Results - last 24 hr 08/26/22 08/26/22 08/26/22 07:59 10:58 10:58 WBC 10.24 RBC 5.05 Hgb 14.4 Hct 45.0 MCV 89 MCH 28.5 MCHC 32.0 RDW 13.3 Plt Count 212 MPV 9.2 Immature Gran % 0.9 Neutrophils % 78.2 Lymphocytes % 15.3 Monocytes % 5.1 Eosinophils % 0.3 Basophils % 0.2 Nucleated RBC % 0.0 Absolute Neutrophils 8.01 H Absolute Lymphocytes 1.57 Absolute Monocytes 0.52 Absolute Eosinophils 0.03 Absolute Basophils 0.02 Sodium 138 Potassium 3.3 L Chloride 100 Carbon Dioxide 31.3 Anion Gap 6.7 BUN 18 Creatinine 1.2 H Est GFR (CKD-EPI 2020) 50.55 Glucose 117 H Calcium 9.1 Magnesium 2.4 C-Reactive Protein 0.50 H Procalcitonin < 0.1 Time Spent with Patient Time Spent with Patient: >50 minutes Time was spent: preparing to see the patient(eg.review tests), obtaining and/or reviewing separately otained hiistory, ordering medications,tests, procedures, referring, communicating with other health clinical manager home care, indepentently interpreting results, counseling the patient and care coordination
--- NOTE | 2022-08-26 18:03 | W.SPSTE ---
Date of service: 08/26/22 Time of Service: 17:30 Subjective Clinical (Bedside) Swallow Evaluation Speech Language Pathology Patient referred for Clinical Swallow Evaluation from Dr Damian given recent episodes of dysphagia to pills and question of aspirated material on chest imaging. Precautions: Full code HPI: Pt is a 62 year old female admitted with acute COPD exacerbation and acute hypoxemic respiratory failure, now stabilized on 1L oxygen but continues to be symptomatic and found on imaging with mucous plugging vs aspirated material with pneumonitis. Initially no airway infiltrates found on exam. Predisposing dysphagia risk factors: GERD, COPD, history of head/neck surgery (complete thyroidectomy) Clinical signs of possible chronic dysphagia: recent difficulty swallowing pills, possible aspiration event Precipitating dysphagia risk factors / triggering event: respiratory failure, hypoxemia. Subjective: Frieda was contacted in her room, upright in chair at bedside while dinner meal in progress. She reports no extended history of aspiration or pharyngeal stasis or other perceived swallow difficulty, but more recently she has had increased difficulty with large pills. She describes recent event (elsewhere in chart) referred to as choking on pills where a pill got stuck in her throat that she could not swallow down. Initially this did not feel like airway invasion rather than stasis. She was unable to wash it down with liquids and decided to drink tea to try to dissolve the medication (a capsule). She felt this was partially successful as she could feel the medication in her esophagus and causing some pain/irritation without the protection of the exterior capsule. She also did do some coughing though per her description this appears to have been coughing to attempt to clear residue and was not clearly an aspiration event. She endorses reflux (medicated), and if she doesn't take her meds for this she will experience sore throat. Objective Objective PFSH All Active Problems?(Updated 08/19/22 @ 21:33 by Crescencio Short) Bronchitis (Acute) Acute hypoxemic respiratory failure (Acute) Chronic obstructive pulmonary disease with (acute) exacerbation (Acute) Distal radius fracture (Acute) Cellulitis (Acute) Shortness of breath (Acute) Medical History?(Updated 08/19/22 @ 21:33 by Crescencio Short) Depression GERD (gastroesophageal reflux disease) History of drug abuse Hypertension Hypothyroid Irregular heart rhythm Trouble in sleeping Surgical History? History of thyroidectomy EXAMINATION: Oriented to self, situation, time. Language: Verbal expression and auditory comprehension appear WFL Speech: 100% intelligible without dysarthric features. Voice: Mildly rough/hoarse Respiratory: 1L O2 via NC, appears to tolerate well without s/sx dyspnea though with some possible respiratory noises on inhale/exhale. Oral-motor/Peripheral: Cranial nerve screening WFL for strength, coordination, symmetry. Partially edentulous with some poor dentition. Oral mucosa appears mildly dry without significant buildup, good oral care. Cough is sharp strong, as well as glottal coup. Volitional swallow is difficult to palpate through neck tissue but palpable with timely initiation, unable to determine degree of laryngeal elevation. PO TRIALS Level 0 Thin liquids: Single sips via straw, cup edge x5, consecutive via cup edge x1 Level 5 minced/moist: Macaroni and cheese x4 bites Regular Solids x 4 bites (salad) Oral phase: Mildly prolonged mastication Pharyngeal phase: No s/sx aspiration/penetration observed but patient reports stasis of pills likely localized to level of UES. Difficulty managing consecutive sips liquid, patient needs to stop/restart but without cough, patient with overall cautious self-feeding behaviors overall. Topics Addressed: anatomy/physiology of swallowing mechanism, overt s/sx to monitor for re: potential aspiration of food / liquids, recommendations for improved oral care, relationship between respiratory function changes and deglutition, Rationale for recommendations as outlined below Outcome: Verbalized/demonstrated understanding Assessment Likely mild dysphagia secondary to chronic GERD-related changes (can cause hypersensitivity and tension affecting swallow coordination, as well as anatomical changes increasing chances of pharyngeal stasis). COPD also known to cause changes in coordination/timing of respiratory and swallow actions resulting in increased risk of aspiration. Patient also reports a historically high level of anxiety related to swallowing large pills. Remains unclear if pill aspiration was cause of recent exacerbation in respiratory symptoms, or if it even occurred though this does remain a possibility. Reflux aspiration is also a potential factor. Patient appears to safely tolerate regular solids and thin liquids today and demonstrates safe self-feeding behaviors at baseline. Recommended safe swallow strategies, risk management approaches for reflux and oral care to mitigate complications of potential aspiration. PORCELAIN ENAMELING SUPERVISOR will collaborate with care team to ensure tolerance of current diet and implementation of current recommendations. Do not anticipate need for further PORCELAIN ENAMELING SUPERVISOR follow-up upon discharge unless there are repeat concerns for aspiration at which point would recommend MBSS orders placed on outpatient basis. Recommendations: Diet Texture Modification(s): IDDSI Level(s) SOLIDS 7-Regular Solids LIQUIDS 0-Thin Liquids Medication Intake: Whole with 4-Extremely Thick Liquids RISK MANAGEMENT: HOB upright as tolerated; upright for all PO intake. Encourage physical mobility as tolerated. Oral hygiene BID/2x per day & before/after PO intake, using friction with toothbrush on all oral structures as tolerated. ? Level of Assistance/Supervision: Independent Strategies/Adaptations/Assistive Equipment: Reduce auditory and/or visual distractions when eating Small sips and bites when eating Slow rate of intake Alternate intake of liquids and solids, Small+frequent meals throughout day Posture/Positioning Needs: Maintain upright position at least 30 minutes after meals, Avoid meals/snacks 2-3 hours prior to reclining/sleeping, Sleep with head of bed elevated to reduce likelihood of nocturnal reflux Plan PORCELAIN ENAMELING SUPERVISOR TO FOLLOW WHILE ON UNIT Short Term Goals: Patient will safely tolerate medication administration and current diet without s/sx aspiration. Patient will be independent with safe swallow strategies and risk management techniques as outlined below. Coding Diagnoses CPT Codes EVALUATE SWALLOWING FUNCTION - [id number] ([id number])
[2022-08-26] MEDS: Simvastatin 10 MG TAB PO (20:55)
[2022-08-26] MEDS: Zolpidem 5 MG TAB PO (22:44)
[2022-08-27 00:04] VITALS: BP 124/62; PULSE 90; RESP 20; TEMP 36.7; O2SAT 91
[2022-08-27] MEDS: PIPERACILLIN/TAZO 3.375 GM in Normal Saline 50 ML IVPB ×4 (03:00→23:35)
[2022-08-27] MEDS: Albuterol/Ipratropium 3 ML UPD VIAL UPD ×2 (05:28→21:02)
[2022-08-27] MEDS: Levothyroxine 25 MCG TAB PO (05:54)
[2022-08-27] MEDS: Levothyroxine 200 MCG TAB PO (05:54)
[2022-08-27 07:16] LABS: Abs Immature Grans 0.08 10^3/uL (0.0-0.06); Absolute Basophil Count 0.01 10^3/uL (0.0-0.2); Absolute Eosinophil Count 0.04 10^3/uL (0.0-0.7); Absolute Lymphocyte Count 3.22 10^3/uL (1.2-3.4); Basophils % 0.1; Eosinophils % 0.4; HGB 13.8 g/dL (11.2-15.7); Immature Grans % 0.8; MCH 28.5 pg (27.0-33.0); MCHC 32.1 % (32.0-36.0); MCV 89 fL (80-95); MPV 9.8 fL (8.0-11.0); Monocytes % 8.2; Neutrophils % 57.5; Platelet Count 229 10^3/uL (130-400); RBC 4.84 10^6/uL (3.93-5.22); RDW 13.3 % (11.7-14.6); RDW-SD 43.6 fL; WBC 9.75 10^3/uL (4.4-10.8)
[2022-08-27 07:40] LABS: Anion Gap 6.8 mmol/L (3-11); BUN 18 mg/dL (7-18); C-Reactive Protein 0.32 mg/dL (0.0-0.3); CO2 31.2 mmol/L (21.0-32.0); Chloride 102 mmol/L (98-107); Estimated GFR 62.91 (mL/min/1.73m2); Glucose 81 mg/dL (74-106); Magnesium 2.7 mg/dL (1.8-2.4); Sodium 140 mmol/L (136-145)
[2022-08-27] MEDS: Mirtazapine 15 MG TAB 45 MG PO (07:43)
[2022-08-27] MEDS: Dexlansoprazole 30 MG CAP 60 MG PO (07:43)
[2022-08-27] MEDS: Mirtazapine 15 MG TAB PO (07:43)
[2022-08-27] MEDS: predniSONE 20 MG TAB 60 MG PO (07:43)
[2022-08-27] MEDS: Normal Saline Flush 10 ML SYR IVP ×2 (07:43→23:36)
[2022-08-27] MEDS: dilTIAZem CD 180 MG CAPCR PO (07:44)
[2022-08-27] MEDS: Lisinopril 5 MG TAB 2.5 MG PO (07:44)
[2022-08-27] MEDS: Docusate Sodium 100 MG CAP 200 MG PO (07:44)
[2022-08-27] MEDS: guaiFENesin 600 MG TABCR PO ×2 (07:44→19:30)
[2022-08-27 07:46] VITALS: BP 130/73; PULSE 74; RESP 19; TEMP 36.4; O2SAT 92
[2022-08-27] MEDS: Budesonide/Formoterol 160/4.5 6 GM 60 PUFF INH IH (09:08)
[2022-08-27 09:11] VITALS: O2SAT 88
--- NOTE | 2022-08-27 09:51 | CMPROGNOTE_ITS ---
- If Service Date Differs Date of service: 08/27/22 Time of Service: 09:52 Care Management Progress Note S/O: Frieda had a down and back Bronchoscopy at [facility] today and was unavailable to speak with CM today. She remains acute, per provider. She may discharge home with [place] O2, RT is following. CM continues support patient and her discharge planning consideration. A: 62 year old female admitted to [facility] 08/19/22 for COPD exacerbation, acute hypoxic respiratory failure P: Anticipate, Frieda will return home once medically stable. CM to provide last dose letter and retrieve take home medications at [facility]. She will transport via private vehicle with her significant other, and follow up with her PCP and plan of care as prescribed. No new [facility] services are anticipated at this time. CM continues to follow.
--- NOTE | 2022-08-27 15:24 | W.PM.PROGNOT ---
Date of Service Date of service: 08/27/22 Time of Service: 15:24 Subjective Subjective Interval history since last seen: patient to [facility] for bronchoscopy. awaiting return and findings. Objective Last Vital Signs Temp 36.4 C L 08/27/22 07:46 Pulse 74 08/27/22 07:46 Resp 19 08/27/22 07:46 BP 130/73 08/27/22 07:46 Pulse Ox 88 L 08/27/22 09:11 Laboratory Results - last 24 hr 08/27/22 08/27/22 06:20 06:20 WBC 9.75 RBC 4.84 Hgb 13.8 Hct 43.0 MCV 89 MCH 28.5 MCHC 32.1 RDW 13.3 Plt Count 229 MPV 9.8 Immature Gran % 0.8 Neutrophils % 57.5 Lymphocytes % 33.0 Monocytes % 8.2 Eosinophils % 0.4 Basophils % 0.1 Nucleated RBC % 0.0 Absolute Neutrophils 5.60 Absolute Lymphocytes 3.22 Absolute Monocytes 0.80 Absolute Eosinophils 0.04 Absolute Basophils 0.01 Sodium 140 Potassium 4.0 Chloride 102 Carbon Dioxide 31.2 Anion Gap 6.8 BUN 18 Creatinine 1.0 Est GFR (CKD-EPI 2020) 62.91 Glucose 81 Calcium 9.0 Magnesium 2.7 H C-Reactive Protein 0.32 H Time Spent with Patient Time Spent with Patient: <25 minutes Time was spent: other (not seen)
[2022-08-27] MEDS: Simvastatin 10 MG TAB PO (19:30)
[2022-08-27] MEDS: Methadone Liquid 10 MG/ML 49 MG PO (19:31)
[2022-08-27 19:40] VITALS: BP 147/79; PULSE 88; RESP 16; TEMP 36.2; O2SAT 94
[2022-08-27 21:02] VITALS: RESP 7
[2022-08-27] MEDS: Zolpidem 5 MG TAB PO (21:17)
[2022-08-27 23:43] VITALS: BP 133/71; PULSE 80; RESP 19; TEMP 36.5; O2SAT 94
[2022-08-28] VITALS (10 sets, daily range): BP systolic 116–158; BP diastolic 70–84; PULSE 80–102; RESP 4–20; TEMP 35.9–36.4; O2SAT 91–96
[2022-08-28] MEDS: Albuterol/Ipratropium 3 ML UPD VIAL UPD ×4 (04:11→22:10)
[2022-08-28] MEDS: Normal Saline Flush 10 ML SYR IVP ×3 (05:05→17:39)
[2022-08-28] MEDS: PIPERACILLIN/TAZO 3.375 GM in Normal Saline 50 ML IVPB ×4 (05:05→23:39)
[2022-08-28] MEDS: Levothyroxine 25 MCG TAB PO (05:05)
[2022-08-28] MEDS: Levothyroxine 200 MCG TAB PO (05:05)
[2022-08-28 06:43] LABS: Abs Immature Grans 0.12 10^3/uL (0.0-0.06); Absolute Basophil Count 0.01 10^3/uL (0.0-0.2); Absolute Lymphocyte Count 1.38 10^3/uL (1.2-3.4); Absolute Monocyte Count 0.66 10^3/uL (0.1-0.8); Absolute Neutrophil Count 7.25 10^3/uL (1.2-6.7); Basophils % 0.1; HCT 45.7 % (36.0-46.0); HGB 14.6 g/dL (11.2-15.7); Immature Grans % 1.3; Lymphocytes % 14.6; MCH 28.7 pg (27.0-33.0); MCHC 31.9 % (32.0-36.0); MCV 90 fL (80-95); MPV 9.4 fL (8.0-11.0); Platelet Count 261 10^3/uL (130-400); RBC 5.09 10^6/uL (3.93-5.22); RDW 13.3 % (11.7-14.6); RDW-SD 43.8 fL; WBC 9.42 10^3/uL (4.4-10.8)
[2022-08-28 06:56] LABS: Anion Gap 5.9 mmol/L (3-11); BUN 17 mg/dL (7-18); C-Reactive Protein 0.18 mg/dL (0.0-0.3); CO2 30.1 mmol/L (21.0-32.0); CREATININE 0.9 mg/dL (0.55-1.02); Calcium 9.1 mg/dL (8.5-10.1); Chloride 101 mmol/L (98-107); Estimated GFR 71.39 (mL/min/1.73m2); Glucose 99 mg/dL (74-106); Magnesium 2.6 mg/dL (1.8-2.4); Potassium 3.6 mmol/L (3.5-5.1); Sodium 137 mmol/L (136-145)
[2022-08-28] MEDS: Methadone Liquid 10 MG/ML 98 MG PO (08:23)
[2022-08-28] MEDS: Docusate Sodium 100 MG CAP 200 MG PO (08:23)
[2022-08-28] MEDS: dilTIAZem CD 180 MG CAPCR PO (08:24)
[2022-08-28] MEDS: Lisinopril 5 MG TAB 2.5 MG PO (08:24)
[2022-08-28] MEDS: Dexlansoprazole 30 MG CAP 60 MG PO (08:24)
[2022-08-28] MEDS: predniSONE 20 MG TAB 60 MG PO (08:24)
[2022-08-28] MEDS: guaiFENesin 600 MG TABCR PO (08:24)
[2022-08-28] MEDS: Budesonide/Formoterol 160/4.5 6 GM 60 PUFF INH IH ×2 (09:02→20:13)
[2022-08-28] MEDS: Milk of Magnesia 30 ML CUP PO (12:01)
[2022-08-28] MEDS: Normal Saline 500 ML 100 ML IV (12:01)
--- NOTE | 2022-08-28 14:35 | PGE_ITS ---
Date of Service Date of service: 08/28/22 Time of Service: 14:35 Assessment and Plan Assessment and plan (1) Acute hypoxemic respiratory failure: Status: Acute Assessment and plan: aspiration pneumonia. See [facility] pulmonary note from 08/27/22. Per Dr. Lele Buckner (survival specialist) trachea, bertha, RM bronchus, LM bronchus wer all normal. however mucous present in RUL RML bronchus but both were patent. RLL bronchus was collapsed w/ copious mucus plugging and BYRON and lingula had mucus but were patent while the LLL bronchus was collapsed w/ copious mucus plugging. continue prednisone, Zosyn, mucinex, Symbicort, and scheduled DuoNeb treatments (2) Aspiration into lower respiratory tract: Status: Acute Assessment and plan: CAR STARTER consulted, see Luisa Frost's note from 08/26 regarding recommendations. Ok for thin liquids and solid foods, just needs to reduce distractions at meals and meds and to take small bites and sips and maintain upright posture for 20 minutes after meals and to avoid meals/snacks for 2 to 3 hours prior to reclining/sleeping (3) Hypertension: Assessment and plan: Continue diltiazem. (4) Hypothyroid: Assessment and plan: H/o thyroid cancer status post thyroidectomy, on synthroid. Outpatient f/u with endocrinology. TSH 0.33, but low TSH is sometimes desireable in patients with h/o thyroid canc er. US soft tissue neck negative. (5) Depression: Assessment and plan: Continue remeron (6) DVT prophylaxis: Status: Acute Assessment and plan: resume enoxaparin and SCD (7) Discharge planning issues: Status: Acute Assessment and plan: Full code will try to wean oxygen as tolerated and hopefully dc home in next 24 to 48 hr on oral antibiotics, steroids and bronchodilators. Professional time spent interviewing and examining patient, discussion of goals of care with hospital team (care management, nursing and consulting professionals) was 30 minutes. Subjective Subjective Interval history since last seen: Patient states she is breathing better since she had a bronchoscopy yesterday. Still bringing up some mucus but is not as thick as it had been. She has been afebrile. Still requiring supplemental oxygen. She is down to 2 L/min per nasal cannula. She was not on home oxygen prior to admission. Exam Narrative Exam Narrative: Obese middle-aged white female sitting up in her chair in no acute respiratory distress alert and oriented. Lungs slight inspiratory wheeze in both bases Heart regular rate and rhythm Abdomen soft nontender Extremities without peripheral cyanosis or edema Objective Last Vital Signs Temp 36.3 C L 08/28/22 08:22 Pulse 96 H 08/28/22 13:10 Resp 20 08/28/22 13:10 BP 116/78 08/28/22 13:10 Pulse Ox 94 08/28/22 13:10 Laboratory Results - last 24 hr 08/28/22 08/28/22 06:04 06:04 WBC 9.42 RBC 5.09 Hgb 14.6 Hct 45.7 MCV 90 MCH 28.7 MCHC 31.9 L RDW 13.3 Plt Count 261 MPV 9.4 Immature Gran % 1.3 Neutrophils % 77.0 Lymphocytes % 14.6 Monocytes % 7.0 Eosinophils % 0.0 Basophils % 0.1 Nucleated RBC % 0.0 Absolute Neutrophils 7.25 H Absolute Lymphocytes 1.38 Absolute Monocytes 0.66 Absolute Eosinophils 0.00 Absolute Basophils 0.01 Sodium 137 Potassium 3.6 Chloride 101 Carbon Dioxide 30.1 Anion Gap 5.9 BUN 17 Creatinine 0.9 Est GFR (CKD-EPI 2020) 71.39 Glucose 99 Calcium 9.1 Magnesium 2.6 H C-Reactive Protein 0.18 Time Spent with Patient Time Spent with Patient: 25-34 minutes Time was spent: preparing to see the patient(eg.review tests), obtaining and/or reviewing separately otained hiistory, ordering medications,tests, procedures, indepentently interpreting results, counseling the patient and care coordination
[2022-08-28] MEDS: Polyethylene Glycol 3350 17 GM PACKET PO (15:55)
[2022-08-28] MEDS: Docusate Sodium 100 MG CAP PO (15:55)
[2022-08-28] MEDS: Simvastatin 10 MG TAB PO (20:10)
[2022-08-28] MEDS: guaiFENesin 600 MG TABCR 1200 MG PO (20:11)
[2022-08-28] MEDS: Mirtazapine 15 MG TAB 60 MG PO (22:10)
[2022-08-28] MEDS: Enoxaparin 40 MG/0.4 ML SYR SC (22:11)
[2022-08-28] MEDS: Zolpidem 5 MG TAB PO (22:11)
[2022-08-29] MEDS: Albuterol/Ipratropium 3 ML UPD VIAL UPD ×2 (03:51→10:10)
[2022-08-29] MEDS: Levothyroxine 200 MCG TAB PO (06:18)
[2022-08-29] MEDS: Levothyroxine 25 MCG TAB PO (06:18)
[2022-08-29] MEDS: PIPERACILLIN/TAZO 3.375 GM in Normal Saline 50 ML IVPB ×2 (06:18→11:41)
[2022-08-29 07:42] VITALS: BP 140/72; PULSE 75; RESP 22; TEMP 36.6; O2SAT 95
[2022-08-29] MEDS: guaiFENesin 600 MG TABCR 1200 MG PO (08:44)
[2022-08-29] MEDS: Normal Saline Flush 10 ML SYR IVP ×2 (08:44→11:41)
[2022-08-29] MEDS: predniSONE 20 MG TAB 60 MG PO (08:44)
[2022-08-29] MEDS: Lisinopril 5 MG TAB 2.5 MG PO (08:45)
[2022-08-29] MEDS: Dexlansoprazole 30 MG CAP 60 MG PO (08:45)
[2022-08-29] MEDS: dilTIAZem CD 180 MG CAPCR PO (08:45)
[2022-08-29] MEDS: Docusate Sodium 100 MG CAP 200 MG PO (08:45)
[2022-08-29] MEDS: Methadone Liquid 10 MG/ML 98 MG PO (08:56)
[2022-08-29] MEDS: Budesonide/Formoterol 160/4.5 6 GM 60 PUFF INH IH (09:02)
[2022-08-29] MEDS: Milk of Magnesia 30 ML CUP PO (09:31)
[2022-08-29] MEDS: Polyethylene Glycol 3350 17 GM PACKET PO (09:32)
[2022-08-29 10:10] VITALS: PULSE 89; O2SAT 93
[2022-08-29 11:39] VITALS: BP 148/78; PULSE 83; RESP 18; TEMP 36.8; O2SAT 93
[2022-08-29 13:23] VITALS: PULSE 107; PULSE 108; PULSE 114; O2SAT 93; O2SAT 96
--- NOTE | 2022-08-29 13:28 | DSE_ITS ---
Date of service: 08/29/22 Time of Service: 13:28 DS: Diagnosis Discharge Diagnosis (1) Acute hypoxemic respiratory failure: Status: Acute (2) Aspiration into lower respiratory tract: Status: Acute (3) Hypertension: (4) Hypothyroid: (5) Depression: (6) DVT prophylaxis: Status: Acute (7) Discharge planning issues: Status: Acute Discharge Plan Disposition Patient Disposition: Home Condition: Improving Discharge Details Reason For Visit: COPD Exacerbation,Acute Hypoxic Respiratory Failur Admit Date/Time: 08/19/22 21:38 Admit Provider: Crescencio Short Attending Provider: Crescencio Short Primary Care Provider: Beena Patel Hospital Course Hospital Course: 62-year-old female past medical history of depression, GERD, hypertension, hypothyroidism but no prior history of chronic lung disease presented to the emergency department on 08/19/2022 with acute complaints of shortness of breath. Patient was started on Keflex on the week prior to admission for some cellulitis of her pannus which did improve with the antibiotics but 2 days prior to presentation emergency department she felt she had aspirated on one of her Keflex capsules. She tried to drink some hot liquids to try to dissolve that. Over the next couple days she had worsening dyspnea and coughing. Chest CT scan was performed on admission showed no pulmonary emboli but showed bibasilar infiltrates vendor representatives of atelectasis versus pneumonia. Patient was started on Zosyn and doxycycline for CAP however as her oxygenation worsened and required HFNC repeat CT chest was performed on 08/24/22 which demonstrated worsening LLL pneumonia/atelectasis w/ LLL mucous plugging vs aspirated material was suggested. As no brick chimney builder was available at [facility], the hospitalist contacted [facility] and [facility] (since [facility] could take the patient in transfer nor could they arrange a down and back transfer for diagnostic and therapeutic bronchoscopy. Patient was sent to [facility] on 08/27 where she underwent fiberoptic bronchoscopy performed by automobile mechanic motor, Dr. Lele Buckner, under supervision of Dr. Hart. Patient has mucous drainage from both RUL, RML and BYRON and left lingula but all of these bronchi were patent. However the RLL and LLL bronchi had copious hutchins mucous drainage w/ collapse of the bronchi. Patient had copious lavage of her bronchi and cultures were sent. The patient continued on Zosyn along w/ mucinex and Symbicort along w/ DuoNeb treatments. She did well and her oxygen was weaned off by the morning of 08/29/22 and an ambulatory pulse oximetry study was performed which she completed w/ SPO2 of 93 to 96%. She was discharged on another 5 days of Augmentin along w/ 5 days of prednisone 40 mg daily. She should continue her Symbicort regularly and use her albuterol inhaler every 4 hours as needed for bronchospasm. Sputum cultures from [facility] are pending at this time. Follow up chest xray is recommended in one week to assess clearance of her bibasilar infiltrates. Home Meds and New Rx's Prescriptions: New budesonide-formoterol [Symbicort] 160-4.5 mcg/actuation Hfa Aerosol Inhaler 2 puff inhalation BID Qty: 0 0RF prednisone 20 mg tablet 40 mg PO DAILY 5 Days Qty: 10 0RF amoxicillin-pot clavulanate [Augmentin] 500-125 mg tablet 1 tab PO TID 5 Days Qty: 15 0RF albuterol sulfate 90 mcg/actuation HFA aerosol inhaler 2 puff inhalation QID PRNQty: 8.5 0RF Continued methadone 10 MG/5 ML solution 98 mg PO DAILY diltiazem HCl [Taztia XT] 240 MG capsule,extended release 24 hr 180 mg PO DAILY levothyroxine 25 MCG tablet 25 mcg PO DAILY mirtazapine 45 MG tablet 45 mg PO DAILY levothyroxine 200 MCG tablet 200 mcg PO DAILY zolpidem 5 MG tablet 5 mg PO HS mirtazapine 15 MG tablet 15 mg PO DAILY docusate sodium [Dulcolax Stool Softener (dss)] 100 MG capsule 200 mg PO DAILY simvastatin 10 MG tablet 10 mg PO DAILY promethazine [Phenadoz] 25 MG suppository 25 mg LA PRN dexlansoprazole [Dexilant] 60 mg Capsule,Biphase Delayed Releas 1 tab PO DAILY lisinopril 2.5 mg Tablet 1 tab PO DAILY cephalexin 500 mg tablet 500 mg PO QID Qty: 28 0RF lorazepam 1 MG tablet 1 mg PO Q6H PRN PRNQty: 14 0RF Discharge Instructions Instructions: Aspiration Pneumonia (DC), Foreign Body Ingestion (ED) Additional Instructions: Speech/language pathologists recommendations for prevention of aspiration are as follows: RISK MANAGEMENT: HOB upright as tolerated; upright for all PO intake. Encourage physical mobility as tolerated. Oral hygiene BID/2x per day & before/after PO intake, using friction with toothbrush on all oral structures as tolerated. ? Level of Assistance/Supervision: Independent Strategies/Adaptations/Assistive Equipment: Reduce auditory and/or visual distractions when eating Small sips and bites when eating Slow rate of intake Alternate intake of liquids and solids, Small+frequent meals throughout day Posture/Positioning Needs: Maintain upright position at least 30 minutes after meals, Avoid meals/snacks 2-3 hours prior to reclining/sleeping, Sleep with head of bed elevated to reduce likelihood of nocturnal reflux Plan ADVERTISING CONSULTANT TO FOLLOW WHILE ON UNIT Short Term Goals: Patient will safely tolerate medication administration and current diet without s/sx aspiration. Patient will be independent with safe swallow strategies and risk management techniques as outlined below. Stand Alone Forms: Nursing Discharge Form Referrals: Beena Patel [Primary Care Provider] - (Please call Tuesday to make a follow up appointment for within the week.) Activity:: Activity as Tolerated Equipment/Supplies:: No Equipment Needed Diet:: As Tolerated Discharge Orders Discharge Orders: Discharge Order (Routine); Ordered 08/29/22 Ordered By: Kvng Wilkinson Discharge Data Discharge Date/Time-TO BE ENTERED AT DEPARTURE: 08/29/22 15:19 DS: Summary Time Spent with Patient providing and/or coordinating discharge services: Greater than 30 minutes Specific discharge activities: Interview/exam of patient; review of discharge instructions, completion of prescriptions/discharge instructions; discussion w/ nursing and CM; documentation of hospital visit Status at Discharge Functional status at discharge: independent ambulation Overall status at discharge: patient is back to baseline Mental Status: mental status grossly normal Speech and Movement: speech and movement normal Mood: congruent mood Affect: normal affect Exam Narrative Exam Narrative: Pleasant middle-aged obese female sitting up at the bedside just having completed her amatory pulse oximetry study. Per respiratory therapy she passed it with flying colors maintain her oxygen saturation between 96 to 98% during ambulation. Patient did not experience any dyspnea with activity. Lungs are clear to auscultation Heart is regular rate and rhythm Abdomen obese soft and nontender Psych Mental Status: mental status grossly normal Speech and Movement: speech and movement normal Mood: congruent mood Affect: normal affect DS: Data Vitals/I&O Vitals and I&O: Vital Signs Temperature 36.8 C 08/29/22 11:39 Temperature Source Tympanic 08/29/22 11:39 Pulse 83 08/29/22 11:39 Pulse Rhythm Regular 08/29/22 07:40 Pulse 124 H 08/19/22 22:10 Respiratory Rate 18 08/29/22 11:39 Respiratory Effort Normal, Non-Labored 08/29/22 07:40 Respiratory Depth Normal 08/29/22 07:40 Respiratory Pattern Normal 08/29/22 07:40 Blood Pressure 148/78 H 08/29/22 11:39 Blood Pressure Mean 54 08/19/22 21:01 Pulse Oximetry 93 08/29/22 11:39 Oxygen Delivery Method Nasal Cannula 08/29/22 11:39 Oxygen Flow Rate 0.5 08/29/22 11:39 Fraction of Inspired Oxygen (FIO2) 36 08/25/22 10:53 Pain Level 0 08/29/22 11:39 Comment Pt. denies pain at this time. 08/29/22 11:39 Intake & Output 08/28/22 08/29/22 08/29/22 23:59 11:59 23:59 Intake Total 771.667 / 2141.667 590 / 590 Balance 771.667 / 2141.667 590 / 590 Weight 120.6 kg Intake: IV 171.667 / 271.667 110 / 110 Oral 600 / 1870 480 / 480 Other: Urine Appearance Clear Comment Patient is voiding independently Per pt. report, void x1 in the toilet. Voiding Methods Toilet Toilet Data Completed and Pending Pending studies at discharge: sputum culture from [facility] from 08/27/22 Labs on day of discharge: Preliminary micro results at discharge 08/27/22 22:16 Sputum Culture - Preliminary Sputum Normal Marjorie PFSH All Active Problems DVT prophylaxis (Acute) Discharge planning issues (Acute) Aspiration into lower respiratory tract (Acute) Bronchitis (Acute) Acute hypoxemic respiratory failure (Acute) Chronic obstructive pulmonary disease with (acute) exacerbation (Acute) Distal radius fracture (Acute) Cellulitis (Acute) Shortness of breath (Acute) Medical History Depression GERD (gastroesophageal reflux disease) History of drug abuse Hypertension Hypothyroid Irregular heart rhythm Trouble in sleeping Surgical History History of thyroidectomy Social History Smoking/Tobacco Use Status: Former Tobacco Use Quit Date: 06/13/99 Smoking risk assessment performed?: Yes Alcohol Intake: never Drug use: Current Sobriety Substance use type: former substance user Current gender identity: female Do you feel safe at home: Yes Do you feel safe in your relationship?: Yes Time Spent with Patient Time Spent with Patient: <45 minutes Time was spent: preparing to see the patient(eg.review tests), ordering medications,tests, procedures, indepentently interpreting results, counseling the patient and care coordination
--- NOTE | 2022-08-31 09:22 | INDS_ITS ---
Date of service: 08/24/22 PT Notes Visit Reasons: COPD Exacerbation,Acute Hypoxic Respiratory Failur Physical Therapy Inpatient Initial Discharge Summary Date: 08/25/2022 Dates of Service: 08/23/2022 through 08/25/2022 This is a clinical summary of care provided for the duration of dates listed above. No charge was made in the completion of this documentation. Referring Doctor: Taylor Cervantes NP PT Orders: PT CONSULT: D/C non PT-dependent Precautions: Fall. Standard. Activity as tolerated. Patient Profile/Admitting Diagnosis:? Jody is a 62-year-old female who presented to the ED on 08/19/2022 due to 2 days worth of cough and shortness of breath accompanied with fever and chills.? Patient is diagnosed with acute hypoxemic respiratory failure, COPD exacerbation, hypertension, hypothyroidism, and depression. PMHX: All Active Problems?(Updated 08/19/22 @ 21:33 by Crescencio Short) Bronchitis (Acute) Acute hypoxemic respiratory failure (Acute) Chronic obstructive pulmonary disease with (acute) exacerbation (Acute) Distal radius fracture (Acute) Cellulitis (Acute) Shortness of breath (Acute) Medical History?(Updated 08/19/22 @ 21:33 by Crescencio Short) Depression GERD (gastroesophageal reflux disease) History of drug abuse Hypertension Hypothyroid Irregular heart rhythm Trouble in sleeping Surgical History? History of thyroidectomy Social History/Home Situation: Lives with significant other in a private home with out any entry steps.? With all aspects of ADLs prior to admission. Equipment Owned/DME: None Subjective: NT. See most recent PUBLIC SPEAKING INSTRUCTOR notes. Objective: General Observation: NT. See most recent PUBLIC SPEAKING INSTRUCTOR notes. Mental Status: NT. See most recent PUBLIC SPEAKING INSTRUCTOR notes. Pain: NT. See most recent PUBLIC SPEAKING INSTRUCTOR notes. Vital Signs: NT. See most recent PUBLIC SPEAKING INSTRUCTOR notes. ROM: Right Upper Extremity: ? Shoulder Flexion WFL. Shoulder abduction WFL. Elbow flexion WFL. Wrist flexion WFL. Functional opening and closing of hand WFL. Left Upper Extremity:? Shoulder Flexion WFL. Shoulder abduction WFL. Elbow flexion WFL. Wrist flexion WFL. Functional opening and closing of hand WFL. Right Lower Extremity: Hip flexion WFL. Hip abduction WFL. Knee flexion WFL. Ankle dorsiflexion WFL. Ankle plantarflexion WFL. Left Lower Extremity: Hip flexion WFL. Hip abduction WFL. Knee flexion WFL. Ankle dorsiflexion WFL. Ankle plantarflexion WFL. Strength: Right Upper Extremity: Shoulder flexors 4/5. Shoulder abductors 5/5. Elbow flexors 5/5. Elbow extensors 5/5. Linseed Cake Trimmer strong. Left Upper Extremity: Shoulder flexors 4/5. Shoulder abductors 5/5. Elbow flexors 5/5. Elbow extensors 5/5. Linseed Cake Trimmer strong. Right Lower Extremity: Hip flexors 4/5. Hip abductors 5/5. Knee flexors 5/5. Knee extensors 4/5. Ankle dorsiflexors 4/5. Ankle plantarflexors 5/5. Left Lower Extremity: Hip flexors 4/5. Hip abductors 5/5. Knee flexors 5/5. Knee extensors 4/5. Ankle dorsiflexors 4/5. Ankle plantarflexors 5/5. Bed Mobility/Transfers: Sit to stand independent Stand to sit independent Gait: Instructed patient with level surface ambulation of 30 feet feet requiring standby assist with patient oxygen level looks going down to 85% on 1 L after 30 feet.? Increased oxygen supplementation to 2 L/min for the rest of the walk with patient saturating between 88% to 93% but frequently requiring standing rests.? Gait pattern otherwise unremarkable. Balance: Static Sitting: Normal Dynamic Sitting: Normal Static Standing: Good Dynamic Standing: Good Special Tests: Mobility Limitations Standardized Measure [facility]-PAC 6 clicks Basic Mobility Inpatient Short Form: Raw Score: 24? CMS Score: 0% deficit? ? ? Informed Consent/Education:? Patient was instructed in purpose of PT consult and plan of care. Agreeable to proceed with established PT POC to achieve personal goals. THERA EX: Instructed patient to perform exercises below every 1-2 hours Chest expansion exercises with shoulder flexion and extension with DBE x 5 Chest expansion exercises with shoulder hor abd/add with DBE x 5 Slow sit to stand x 5 Assessment: Patient was a made independent inside room with oxygen supplementation at 1 L/min for all essential short distance ambulation to and from bathroom.? Supervision in the hallway due to desaturation variation.? Nurse brenda was informed about desaturation episode with long distance ambulation. Patient presents with clinical signs and symptoms consistent with current/admitting diagnoses that have resulted to mobility limitations, gait instability, generalized weakness, and overall ADL decline as demonstrated by the following impairment level findings: 1.? Shortness of breath with desaturation to lower than 88% on 1 L with ambulation tasks Impairments are contributing to the following functional limitations: 1.? Increased completion time for mobility ADL performance Goals: Goals X1 week 1. Independent gait on level surface with use of no AD for at least 500 feet without report of dyspnea with oxygen saturation above 88% on 1 L NOT MET DISCHARGE RECOMMENDATIONS: [] ? Home with no services [] [X] ? Home with services.? PT for home safety evaluation and energy conservation techniques. [] ? Home with outpatient PT [] [] ? SNF for continued rehabilitation [] [] ? Detention Care [] [] ? SNF versus LTC based on ability to participate and progress [] TREATMENT CODE/TIME: SD Thank you for the opportunity to participate in the care of this patient. Evon Bryant PT, DPT, CLT [facility] [place], [place]
== END 2022-08-29 15:19 | disposition home or self-care (01) | DRG 177 ==
LOC: ER 22:43 → MS 23:08
PROVIDERS: Emergency Medicine; Internal Medicine; Nurse Practitioner Acute Care; Nurse Practitioner Family; Admitting Provider Family Medicine; Emergency Provider Student in an Organized Health Care Education/Training Program; PCP Nurse Practitioner; Visit Provider Family Medicine
DX: J69.0 Pneumonitis due to inhalation of food and vomit (principal); J96.01 Acute respiratory failure with hypoxia; J44.0 Chronic obstructive pulmonary disease with (acute) lower respiratory infection; T17.800A Unspecified foreign body in other parts of respiratory tract causing asphyxiation, initial encounter; Z68.42 Body mass index [BMI] 45.0-49.9, adult; I44.1 Atrioventricular block, second degree; I10 Essential (primary) hypertension; F32.A Depression, unspecified; E87.6 Hypokalemia; E89.0 Postprocedural hypothyroidism; Z87.891 Personal history of nicotine dependence; J20.9 Acute bronchitis, unspecified; E66.9 Obesity, unspecified; Z85.850 Personal history of malignant neoplasm of thyroid
CPT/HCPCS: 31624; 36415; 71250; 71275; 76536; 80048; 80053; 84145; 85027; 87637; 92610; 93005; 93306; 94618; 94640; 97110; 97530; J1650; 71046; 83735; 83880; 84439; 84443; 84484; 85025; 85610; 85730; 86140; 87070; 87205; 93010; 93971; 94664; 94667; 94668; 94760; 99232; 99233; A0425; A0428; J1940; J2405; J2543; J2930; J3480; J3490; J7512; J7613; J7620

== ENCOUNTER 2022-09-03 12:37 | Inpatient (IN) | payer MEDICARE, SELFPAY ==
[2022-09-03] VITALS (32 sets, daily range): BP systolic 140–158; BP diastolic 73–83; PULSE 72–124; RESP 9–26; O2SAT 91–94
--- NOTE | 2022-09-03 14:15 | DI.CT_ITS ---
Exam(s) CT CHEST W EXAM: CT CHEST W CLINICAL HISTORY: concern for aspiration, LLL crackles TECHNIQUE: Imaging Protocol: Axial computed tomography images with coronal and sagittal reformatted images were created and reviewed CONTRAST MATERIAL: Intravenous: Omnipaque 350Contrast volume:70 mL. COMPARISON: CT CT CHEST WO from 08/24/2022 CR XR PORTABLE CHEST AP from 09/03/2022 FINDINGS: Tracheobronchial tree: Patent where visualized. Pulmonary parenchyma: There is a new small area of consolidation in the lateral aspect of the left li ngula. Stable areas of scarring are seen in the bases of the right middle lobe and right lower lobe. No architectural distortion. Mediastinum and Madeline: No dominant adenopathy or fluid collection. The esophagus is unremarkable. The re is a small hiatal hernia. Thyroid gland: Unremarkable. Pleura: No effusion or pneumothorax. Heart: The heart is not dilated. No coronary artery calcifications are seen. No pericardial effusion. Aorta: Thoracic aorta non-dilated. Pulmonary arteries: There is inadequate opacification for evaluation of pulmonary emboli. Upper abdomen: There is fatty infiltration of the liver. Status post cholecystectomy. There is fatty infiltration of the pancreas. Lymph nodes: Within normal limits. Bones: Within normal limits for the patient's age. There is a right convex thoracic scoliosis. Soft tissues: Unremarkable. IMPRESSION: 1. There is a small infiltrate in the left lingula. This may represent atelectasis or pneumonia. 2. Stable appearance of the right middle lobe and right lower lobe which may reflect scarring or atel ectasis. RADIATION DOSE DELIVERED: 700.12mGy.cm Total DLP DATA REPOSITORY: All CT scans at this facility are submitted to the National Radiology Data Registry (NRDR) Dose Index Registry (DIR) with the [employer] (A[employer]). RADIATION OPTIMIZATION: All CT scans at this facility use at least one of these dose optimization te chniques: automated exposure control; mA and/or kV adjustment per patient size (includes targeted exa ms where dose is matched to clinical indication); or iterative reconstruction.
[2022-09-03 14:43] LABS: Absolute Basophil Count 0.02 10^3/uL (0.0-0.2); Absolute Lymphocyte Count 0.64 10^3/uL (1.2-3.4); Absolute Neutrophil Count 10.07 10^3/uL (1.2-6.7); Basophils % 0.2; HCT 44.3 % (36.0-46.0); HGB 14.4 g/dL (11.2-15.7); Immature Grans % 0.9; Lymphocytes % 5.8; MCH 28.5 pg (27.0-33.0); MCHC 32.5 % (32.0-36.0); MCV 88 fL (80-95); MPV 8.9 fL (8.0-11.0); Monocytes % 1.8; Neutrophils % 91.3; Platelet Count 258 10^3/uL (130-400); RBC 5.06 10^6/uL (3.93-5.22); RDW 13.2 % (11.7-14.6); WBC 11.03 10^3/uL (4.4-10.8)
--- NOTE | 2022-09-03 14:47 | ED.GENADUL_ITS ---
Discharge Plan Disposition Patient Disposition: Admit to [facility] Condition: Serious Discharge Details Chief Complaint: SOB Clinical Impression: Hypoxia, Dyspnea Primary Care Provider: Beena Patel ED Provider: Jairon Arredondo Home Meds and New Rx's Prescriptions: No Action methadone 10 MG/5 ML solution 98 mg PO DAILY diltiazem HCl [Taztia XT] 240 MG capsule,extended release 24 hr 180 mg PO DAILY levothyroxine 25 MCG tablet 25 mcg PO DAILY mirtazapine 45 MG tablet 45 mg PO DAILY levothyroxine 200 MCG tablet 200 mcg PO DAILY zolpidem 5 MG tablet 5 mg PO HS mirtazapine 15 MG tablet 15 mg PO DAILY docusate sodium [Dulcolax Stool Softener (dss)] 100 MG capsule 200 mg PO DAILY simvastatin 10 MG tablet 10 mg PO DAILY promethazine [Phenadoz] 25 MG suppository 25 mg NE PRN dexlansoprazole [Dexilant] 60 mg Capsule,Biphase Delayed Releas 1 tab PO DAILY lisinopril 2.5 mg Tablet 1 tab PO DAILY cephalexin 500 mg tablet 500 mg PO QID Qty: 28 0RF lorazepam 1 MG tablet 1 mg PO Q6H PRN PRNQty: 14 0RF budesonide-formoterol [Symbicort] 160-4.5 mcg/actuation Hfa Aerosol Inhaler 2 puff inhalation BID Qty: 0 0RF albuterol sulfate 90 mcg/actuation HFA aerosol inhaler 2 puff inhalation QID PRNQty: 8.5 0RF Medical Decision Making 62-year-old female recent aspiration pneumonia presents with shortness of breath wheezing respirations and hypoxia in the setting of choking on a pill this morning. Rhonchorous breath sounds left base, hypoxic to the high 80s on room air on arrival, cyanosis of face, tachypnea, placed on nasal cannula with great improvement of skin color and respiratory effort. Will be ordering a CT chest to better assess thoracic anatomy high clinical suspicion for recurrent aspiration pneumonitis versus pneumonia versus atelectasis. Will likely need transfer for bronchoscopy pending results and imaging. 16: 48 patient's oxygenation around 94% on 4 L nasal cannula, improving with nebs however when taken off of nasal cannula patient desaturates to the mid to high 80s and becomes more dyspneic. Consider residual atelectasis versus residual pneumonia. Patient is currently on her last dose of Augmentin. Will be admitted for oxygen, continue nebs, reassessment of respiratory symptoms, swallow study, possible coordination of outpatient oxygen therapy HPI General Date/Time Provider Initiated Documentation: 09/03/22 14:02 . HPI Narrative: 62-year-old female recent aspiration pneumonia presents after choking on a pill earlier today around 1130 coughed had a bad taste in her mouth, then began having respiratory symptoms wheezing sound and trouble breathing. Patient was transferred to [facility] during last visit for bronchoscopy and lavage was discharged home within the last several days. Related Data Home Medications Medication Instructions Recorded Confirmed diltiazem HCl 240 mg capsule,24 180 mg PO DAILY 01/17/13 09/03/22 hr,extended release (Taztia XT) levothyroxine 200 mcg tablet 200 mcg PO DAILY 01/17/13 09/03/22 levothyroxine 25 mcg tablet 25 mcg PO DAILY 01/17/13 09/03/22 methadone 10 mg/5 mL oral solution 98 mg PO DAILY 01/17/13 09/03/22 mirtazapine 15 mg tablet 15 mg PO DAILY 01/17/13 09/03/22 mirtazapine 45 mg tablet 45 mg PO DAILY 01/17/13 09/03/22 zolpidem 5 mg tablet 5 mg PO HS 01/17/13 09/03/22 docusate sodium 100 mg capsule 200 mg PO DAILY 01/23/13 09/03/22 (Dulcolax Stool Softener (docusate)) simvastatin 10 mg tablet 10 mg PO DAILY 03/12/13 09/03/22 promethazine 25 mg rectal 25 mg NE PRN 03/15/14 09/03/22 suppository (Phenadoz) lorazepam 1 mg tablet 1 mg PO Q6H PRN PRN #14 tabs 11/05/16 09/03/22 dexlansoprazole 60 mg 1 tab PO DAILY 03/17/18 09/03/22 capsule,biphase delayed release (Dexilant) lisinopril 2.5 mg tablet 1 tab PO DAILY 03/17/18 09/03/22 cephalexin 500 mg tablet 500 mg PO QID #28 tabs 08/16/22 09/03/22 albuterol sulfate 90 mcg/actuation 2 puff inhalation QID PRN #8.5 08/29/22 09/03/22 aerosol inhaler grams budesonide-formoterol HFA 160 2 puff inhalation BID #0 grams 08/29/22 09/03/22 mcg-4.5 mcg/actuation aerosol inhaler (Symbicort) Previous Rx's Medication Instructions Recorded lorazepam 1 mg tablet 1 mg PO Q6H PRN PRN #14 tabs 11/05/16 cephalexin 500 mg tablet 500 mg PO QID #28 tabs 08/16/22 albuterol sulfate 90 mcg/actuation 2 puff inhalation QID PRN #8.5 08/29/22 aerosol inhaler grams budesonide-formoterol HFA 160 2 puff inhalation BID #0 grams 08/29/22 mcg-4.5 mcg/actuation aerosol inhaler (Symbicort) Allergies Allergy/AdvReac Type Severity Reaction Status Date / Time No Known Allergies Allergy Unverified 09/03/22 14:45 General Stated Complaint: SOB PAULINE: 3 Review of Systems Narrative: Review of Systems Constitutional: negative Eyes: negative ENT: negative Cardiovascular: negative Respiratory: Shortness of breath Gastrointestinal: negative : negative Musculoskeletal: negative Skin: negative Neurologic: negative Psych: negative PFSH All Active Problems (Updated 09/03/22 @ 16:49 by Jairon Arredondo MD) Hypoxia (Acute) Dyspnea (Acute) Bronchitis (Acute) Distal radius fracture (Acute) Cellulitis (Acute) Medical History (Updated 09/03/22 @ 16:49 by Jairon Arredondo MD) Depression GERD (gastroesophageal reflux disease) History of drug abuse Hypertension Hypothyroid Irregular heart rhythm Trouble in sleeping Surgical History History of thyroidectomy Social History Smoking/Tobacco Use Status: Former Tobacco Use Quit Date: 06/13/99 Smoking risk assessment performed?: Yes Alcohol Intake: never Drug use: Current Sobriety Substance use type: former substance user Current gender identity: female Do you feel safe at home: Yes Do you feel safe in your relationship?: Yes Exam Narrative Exam Narrative: Physical Examination General: alert, awake, cooperative, moderately uncomfortable HEENT: normocephalic, atraumatic; PERRL, EOM intact, conjunctiva normal; no nasal discharge; moist mucous membranes, oral and pharyngeal mucosa normal, tolerating secretions Neck: supple, trachea midline; full ROM; no stridor Chest: normal to inspection Respiratory: Tachypnea, rhonchorous breath sounds left lower lung relatively clear in other lung tavera Cardiac: regular rate, regular rhythm, S1S2 intact, no murmurs rubs or gallops GI: abdomen soft, non-tender, non-distended; no palpable mass or hepatosplenomegaly Skin: cyanosis of face Neuro: AAOx3, normal speech, moving all extremities Psych: Appropriate mood and affect Course Vital Signs Vital signs: Vital Signs Pulse 107 H 09/03/22 12:48 Respiratory Rate 26 H 09/03/22 12:48 Blood Pressure 158/83 H 09/03/22 12:48 Pulse Oximetry 91 L 09/03/22 12:48 Pulse 107 H 09/03/22 12:48 Respiratory Rate 20 09/03/22 14:40 Respiratory Effort Short of Breath 09/03/22 14:43 Respiratory Depth Deep 09/03/22 14:40 Respiratory Pattern Normal 09/03/22 14:40 Blood Pressure 158/83 H 09/03/22 12:48 Blood Pressure Position Sitting 09/03/22 12:48 Pulse Oximetry 91 L 09/03/22 12:48 Oxygen Delivery Method Room Air 09/03/22 12:48 Oxygen Flow Rate 0 09/03/22 12:48 Pain Level 3 09/03/22 12:48 Lab/Test Results Lab/Test Results: Laboratory Tests Range/Units 09/03/22 14:35 WBC (4.4-10.8) 10^3/uL 11.03 H RBC (3.93-5.22) 10^6/uL 5.06 Hgb (11.2-15.7) g/dL 14.4 Hct (36.0-46.0) % 44.3 MCV (80-95) fL 88 MCH (27.0-33.0) pg 28.5 MCHC (32.0-36.0) % 32.5 RDW (11.7-14.6) % 13.2 Plt Count (130-400) 10^3/uL 258 MPV (8.0-11.0) fL 8.9 Immature Gran % 0.9 Neutrophils % 91.3 Lymphocytes % 5.8 Monocytes % 1.8 Eosinophils % 0.0 Basophils % 0.2 Nucleated RBC % (0.0-0.3) % 0.0 Absolute Neutrophils (1.2-6.7) 10^3/uL 10.07 H Absolute Lymphocytes (1.2-3.4) 10^3/uL 0.64 L Absolute Monocytes (0.1-0.8) 10^3/uL 0.20 Absolute Eosinophils (0.0-0.7) 10^3/uL 0.00 Absolute Basophils (0.0-0.2) 10^3/uL 0.02
--- NOTE | 2022-09-03 14:51 | DI.RAD_ITS ---
Exam(s) XR PORTABLE CHEST AP EXAM: XR PORTABLE CHEST AP CLINICAL HISTORY: sob, possible aspiration TECHNIQUE: 2D digital imaging was performed of the chest. Two images were obtained. AP views were obtained. COMPARISON: CR XR CHEST 2V PA LATERAL from 08/23/2022 FINDINGS: MEDIASTINUM: Normal. HEART: Normal. PULMONARY VASCULATURE: Normal. LUNGS: Clear. PLEURAL SPACE: No pleural effusion or pneumothorax. BONE:Within normal limits for the patient's age. OTHER FINDINGS:Normal. IMPRESSION: No acute pulmonary findings. DATA REPOSITORY: RADIATION DOSE DELIVERED:
[2022-09-03 15:23] LABS: ALT 50 U/L (14-59); AST 21 U/L (15-37); Albumin 3.8 g/dL (3.4-5.0); Alkaline Phosphatase 89 U/L (46-116); Anion Gap 9.7 mmol/L (3-11); BUN 15 mg/dL (7-18); Bilirubin, Total 0.5 mg/dL (0.2-1.0); CO2 28.3 mmol/L (21.0-32.0); CREATININE 1.1 mg/dL (0.55-1.02); Calcium 8.9 mg/dL (8.5-10.1); Chloride 101 mmol/L (98-107); Estimated GFR 56.11 (mL/min/1.73m2); Glucose 154 mg/dL (74-106); Potassium 3.8 mmol/L (3.5-5.1); Sodium 139 mmol/L (136-145); Total Protein 7.3 g/dL (6.4-8.2)
[2022-09-03] MEDS: Omnipaque 350 MG/ML 500 ML BTL-Imaging package IJ (15:28)
[2022-09-03] MEDS: Normal Saline - Diluent 50 ML VIAL IJ (15:29)
[2022-09-03] MEDS: Normal Saline Flush 10 ML SYR IVP (15:30)
[2022-09-03] MEDS: Ipratropium 0.5 MG/2.5 ML UPD VIAL UPD ×2 (15:50→16:24)
[2022-09-03] MEDS: Levalbuterol 1.25 MG/3 ML UPD VIAL UPD ×2 (15:50→16:24)
[2022-09-03] MEDS: Dexamethasone 10 MG/ML VIAL IVP (16:25)
[2022-09-04] VITALS (92 sets, daily range): BP systolic 129–149; BP diastolic 72–76; PULSE 55–102; RESP 10–47; TEMP 36.2–36.8; O2SAT 93–95
--- NOTE | 2022-09-04 00:41 | W.PM.HP.N ---
Date of service: 09/03/22 Time of Service: 23:15 Assessment and Plan Assessment and plan (1) Recurrent aspiration pneumonia: Status: Acute Assessment and plan: The patient's history and a small lingular infiltrate on CT with is consistent with exam findings all suggest recurrent aspiration pneumonia vs pneumonitis. She currently doesn't appear to be in distress on supplumental O2 but she is still hypoxic. Will treat with cephtriaxone and doxycycline for pnuemonia as we don't have risks or evidence of pseudomonal or staph infection. I'm not sure why she is suddenly having such difficulty with swallowing. Will get another speech pathology consult to re-evaluate swallow. I have somet concerns it may be related to her multiple sedating medication (methadone, lorazepam, zolpidem). Try to limit the gabanergic medications, hold benzo for now if we can. (2) COPD (chronic obstructive pulmonary disease): Status: Chronic Assessment and plan: Given dexamethasone in the ED, will continue this at 6mg along with inhalers for COPD component of her presenation, which seems to have been clearly triggered but some sort of aspiration event. (3) Anxiety: Status: Chronic Assessment and plan: Continue outpatient medication except holding lorazepam (which was PRN) over concern for oversedation leading to aspiration. Monitor. (4) Hypertension: Assessment and plan: Continue outpatient therapy. (5) Hypothyroid: Assessment and plan: SHe is on a very high dose of Lt4 and her TSH has been on the low end. I would recommend cutting to 200mcg levothyroxone. (6) Opioid use disorder, severe, on maintenance therapy: Assessment and plan: Continue outpatient methadone dosing when confirmed by JOE. Monitor for oversedation. (7) GERD (gastroesophageal reflux disease): Assessment and plan: Continue PPI IV for now (8) DVT prophylaxis: Status: Acute Assessment and plan: [facility] (9) Discharge planning issues: Status: Acute Assessment and plan: She is currently boarding in the ED as we have no beds on the floor. She is full code. History of Present Illness History of Present Illness Chief Complaint: shortness of breath Narrative: 62 yo F with COPD, opioid use disorder on methadone, and recent admission 08/19 - 08/29/2022 with hypoxia after choking on one of her antibiotic pills who presented to the ED with another episode of acute shortness of breat developing after difficulty swallowing a pill today. Jody states she never full recovered after last admission and was still hypoxic into the high 80s with walking. On the day of admission she took her stool softener at around 11:40am. It was a little hard to swallow but she did with water. 15 minutes later she had a bad taste in her mouth. She tried to drink water and got down about 20oz in the following 30 minutes. She then noted she could hear the congestion in her chest and started to cough and felt like she suddenly lost her breath. She then come in to [facility]. Upon review of last admission, she states the procedure (bronchoscopy with removal of mucous) really helped her symptoms Review of Systems Constitutional Constitutional: Denies chills, Denies fever(s), Denies headache(s), Denies poor appetite and Denies weakness Eyes Eyes: Denies change in vision and Denies irritation ENT Ears, Nose, Mouth, and Throat: Denies dizziness, Denies headache(s), Denies nasal congestion, Denies nasal discharge and Denies sore throat Cardiovascular Cardiovascular: Denies chest pain, Reports rapid heart rate, Denies edema, Denies irregular heart rhythm and Reports dyspnea on exertion Respiratory Respiratory: Reports cough, Denies hemoptysis, Reports excessive phlegm production, Reports dyspnea on exertion, Denies stridor and Reports wheezing Gastrointestinal Gastrointestinal: Denies abdominal pain, Denies constipation, Reports heartburn, Denies diarrhea and Denies vomiting Genitourinary Genitourinary: Denies hematuria, Denies dysuria and Denies urinary incontinence Integumentary/Breasts Skin/Breast: Denies rash and Denies skin ulcer Neurologic Neurologic: Denies confusion, Denies dizziness, Denies headache(s), Denies sensory deficit and Denies weakness Psychiatric Psychiatric: Denies confusion, Denies mood swings and Denies panic attacks Hematologic/Lymphatic Hematologic/Lymphatic: Denies easy bleeding Allergic/Immunologic Allergic/Immunologic: Reports wheezing PFSH All Active Problems (Updated 09/04/22 @ 01:08 by Gerson Sands) Discharge planning issues (Acute) DVT prophylaxis (Acute) Anxiety (Chronic 03/27/14) COPD (chronic obstructive pulmonary disease) (Chronic) Recurrent aspiration pneumonia (Acute) Hypoxia (Acute) Dyspnea (Acute) Bronchitis (Acute) Distal radius fracture (Acute) Medical History (Updated 09/04/22 @ 01:08 by Gerson Sands) Abnormal auditory perception (03/29/14) Depression GERD (gastroesophageal reflux disease) History of drug abuse Hypertension Hypothyroid Irregular heart rhythm Opioid use disorder, severe, on maintenance therapy Trouble in sleeping Surgical History History of thyroidectomy Social History Smoking/Tobacco Use Status: Former Tobacco Use Quit Date: 06/13/99 Smoking risk assessment performed?: Yes Alcohol Intake: never Drug use: Current Sobriety Substance use type: former substance user Current gender identity: female Do you feel safe at home: Yes Do you feel safe in your relationship?: Yes Meds Allergies and Home Medications Allergies Allergy/AdvReac Type Severity Reaction Status Date / Time No Known Allergies Allergy Unverified 09/03/22 14:45 Home Medications Medication Instructions Recorded Confirmed Type diltiazem HCl 240 mg capsule,24 180 mg PO DAILY 01/17/13 09/03/22 History hr,extended release (Taztia XT) levothyroxine 200 mcg tablet 200 mcg PO DAILY 01/17/13 09/03/22 History levothyroxine 25 mcg tablet 25 mcg PO DAILY 01/17/13 09/03/22 History methadone 10 mg/5 mL oral solution 98 mg PO DAILY 01/17/13 09/03/22 History mirtazapine 15 mg tablet 15 mg PO DAILY 01/17/13 09/03/22 History mirtazapine 45 mg tablet 45 mg PO DAILY 01/17/13 09/03/22 History zolpidem 5 mg tablet 5 mg PO HS 01/17/13 09/03/22 History docusate sodium 100 mg capsule 200 mg PO DAILY 01/23/13 09/03/22 History (Dulcolax Stool Softener (docusate)) simvastatin 10 mg tablet 10 mg PO DAILY 03/12/13 09/03/22 History promethazine 25 mg rectal 25 mg [place] PRN 03/15/14 09/03/22 History suppository (Phenadoz) lorazepam 1 mg tablet 1 mg PO Q6H PRN PRN #14 tabs 11/05/16 09/03/22 Rx dexlansoprazole 60 mg 1 tab PO DAILY 03/17/18 09/03/22 History capsule,biphase delayed release (Dexilant) lisinopril 2.5 mg tablet 1 tab PO DAILY 03/17/18 09/03/22 History cephalexin 500 mg tablet 500 mg PO QID #28 tabs 08/16/22 09/03/22 Rx albuterol sulfate 90 mcg/actuation 2 puff inhalation QID PRN #8.5 08/29/22 09/03/22 Rx aerosol inhaler grams budesonide-formoterol HFA 160 2 puff inhalation BID #0 grams 08/29/22 09/03/22 Rx mcg-4.5 mcg/actuation aerosol inhaler (Symbicort) Exam Narrative Exam Narrative: GEN: Alert and oriented, pleasant and cooperative, gives linear history. No acute distress at rest. HEENT: Head atraumatic. Conjunctiva clear, no icterus. PEERL, EOMI. no rhinorrhea. MMM, OP benign. Neck is supple with no masses or lymphadenopathy, trachea midline LUNGS: Speaking in full sentences, but sitting strait up in bed with O2 via NC. Diffuse wheezing with more wet stounding rhonchi in left mid to base of lung field. No rales. CV: RRR with no murmurs, gallops, or rubs. ABD: +BS, soft, NT/ND EXT: no cyanosis, clubbing, or edema MSK: No joint redness or swelling NEURO: CN 2-12 grossly intact. Normal movement of 4 extremities. Normal speech and coordination SKIN: No rashes or open wounds. PSYCH: normal mood and affect Results Imaging Chest x-ray: report reviewed ( No acute pulmonary findings.) CT scan - chest: report reviewed (1. There is a small infiltrate in the left lingula. This may represent atelectasis or pneumonia. 2. Stable appearance of the right middle lobe and right lower lobe which may reflect scarring or atelectasis.) EKG: report reviewed (NSR 90, no stemi, minimal lateral depressions. QTc 450) and image reviewed Labs 09/03/22 14:35 09/03/22 14:57 Labs: Laboratory Results - last 24 hr 09/03/22 09/03/22 09/03/22 14:35 14:35 14:57 WBC 11.03 H RBC 5.06 Hgb 14.4 Hct 44.3 MCV 88 MCH 28.5 MCHC 32.5 RDW 13.2 Plt Count 258 MPV 8.9 Immature Gran % 0.9 Neutrophils % 91.3 Lymphocytes % 5.8 Monocytes % 1.8 Eosinophils % 0.0 Basophils % 0.2 Nucleated RBC % 0.0 Absolute Neutrophils 10.07 H Absolute Lymphocytes 0.64 L Absolute Monocytes 0.20 Absolute Eosinophils 0.00 Absolute Basophils 0.02 Sodium Cancelled 139 Potassium Cancelled 3.8 Chloride Cancelled 101 Carbon Dioxide Cancelled 28.3 Anion Gap Cancelled 9.7 BUN Cancelled 15 Creatinine Cancelled 1.1 H Est GFR (CKD-EPI 2020) Cancelled 56.11 Glucose Cancelled 154 H Calcium Cancelled 8.9 Total Bilirubin Cancelled 0.5 AST Cancelled 21 ALT Cancelled 50 Alkaline Phosphatase Cancelled 89 Total Protein Cancelled 7.3 Albumin Cancelled 3.8 Last Vital Signs Pulse 100 H 09/03/22 17:05 Resp 20 09/03/22 14:40 BP 158/83 H 09/03/22 12:48 Pulse Ox 94 09/03/22 17:05 Time Spent Time spent with Patient: 55-74 minutes Time was spent: preparing to see the patient(eg.review tests), obtaining and/or reviewing separately otained hiistory, ordering medications,tests, procedures, referring, communicating with other health care management coordinator, indepentently interpreting results and counseling the patient
[2022-09-04] MEDS: DOXYCYCLINE 100 MG in Normal Saline 100 ML IVPB ×2 (01:48→14:50)
[2022-09-04] MEDS: Enoxaparin 40 MG/0.4 ML SYR SC ×2 (01:49→21:58)
[2022-09-04] MEDS: POTASSIUM CHLORIDE/D5-0.45NACL 1,000 ML 120 MEQ IV (02:25)
[2022-09-04] MEDS: cefTRIAXone 2 GM VIAL IV (03:03)
[2022-09-04] MEDS: Zolpidem 5 MG TAB PO ×2 (03:03→21:57)
[2022-09-04] MEDS: Levothyroxine 200 MCG TAB PO (06:09)
[2022-09-04] MEDS: Levothyroxine 25 MCG TAB PO (06:09)
[2022-09-04 06:46] LABS: Abs Immature Grans 0.06 10^3/uL (0.0-0.06); Absolute Basophil Count 0.01 10^3/uL (0.0-0.2); Absolute Lymphocyte Count 0.83 10^3/uL (1.2-3.4); Absolute Monocyte Count 0.39 10^3/uL (0.1-0.8); Absolute Neutrophil Count 10.11 10^3/uL (1.2-6.7); Basophils % 0.1; HCT 42.1 % (36.0-46.0); HGB 13.3 g/dL (11.2-15.7); Immature Grans % 0.5; Lymphocytes % 7.3; MCH 28.4 pg (27.0-33.0); MCHC 31.6 % (32.0-36.0); MCV 90 fL (80-95); MPV 8.8 fL (8.0-11.0); Monocytes % 3.4; Neutrophils % 88.7; Platelet Count 216 10^3/uL (130-400); RBC 4.68 10^6/uL (3.93-5.22); RDW 13.6 % (11.7-14.6); RDW-SD 44.5 fL
[2022-09-04 08:30] LABS: Source Nasal/Nares
[2022-09-04] MEDS: Dexlansoprazole 30 MG CAP 60 MG PO (08:47)
[2022-09-04] MEDS: dilTIAZem CD 180 MG CAPCR PO (08:47)
[2022-09-04] MEDS: Budesonide/Formoterol 160/4.5 6 GM 60 PUFF INH IH ×2 (08:48→21:41)
[2022-09-04] MEDS: LISINOPRIL 2.5 MG TAB PO (08:49)
[2022-09-04] MEDS: Docusate Sodium 100 MG CAP 200 MG PO (08:49)
[2022-09-04] MEDS: Methadone Liquid 10 MG/ML 98 MG PO (08:50)
[2022-09-04 09:01] LABS: COVID-19 PCR Negative (Negative)
--- NOTE | 2022-09-04 14:38 | NUR.NOTE ---
Nursing Note: This RN educated patient on IS use during shift
--- NOTE | 2022-09-04 15:42 | W.PM.PROGNOT ---
Date of Service Date of service: 09/04/22 Time of Service: 15:42 Assessment and Plan Assessment and plan (1) Recurrent aspiration pneumonia: Status: Acute Assessment and plan: Aspiration pneumonia vs pneumonitis. No distress on supplumental O2 ~ 2 lpm, not hypoxic Continue ceftriaxone and doxycycline for pneumonia Speech pathology consult pending Swallowing study Multiple sedating medsL methadone, lorazepam, zolpidem). Limit the gabanergic medications, hold benzo for now (2) COPD (chronic obstructive pulmonary disease): Status: Chronic Assessment and plan: Continue dexamethasone at 6mg Inhalers for COPD (3) Anxiety: Status: Chronic Assessment and plan: Continue outpatient medication although continue holding lorazepam (which was PRN) (4) Hypertension: Assessment and plan: Continue outpatient therapy. (5) Hypothyroid: Assessment and plan: She is on a very high dose of Lt4 and her TSH has been on the low end. I would recommend cutting to 200mcg levothyroxone. (6) Opioid use disorder, severe, on maintenance therapy: Assessment and plan: Continue outpatient methadone dosing when confirmed by BARRElena. Monitor for oversedation. (7) GERD (gastroesophageal reflux disease): Assessment and plan: Continue PPI IV for now (8) DVT prophylaxis: Status: Acute Assessment and plan: [facility] (9) Discharge planning issues: Status: Acute Assessment and plan: Discharge without services to home when stable, but not before swallowing study and speech eval Discussed with Dr Flores Subjective Subjective Patient reports: no new complaints, pain is less, voiding w/o difficulty, bowel movement and afebrile; denies diarrhea, nausea or vomiting Interval history since last seen: Jody reports feeling better, able to tolerate full fluids. Exam Narrative Exam Narrative: GEN: Alert and oriented, pleasant and cooperative, gives linear history. No acute distress at rest. HEENT: Head atraumatic. Conjunctiva clear, no icterus. PEERL, EOMI. no rhinorrhea. MMM, OP benign. Neck is supple with no masses or lymphadenopathy, trachea midline LUNGS: Speaking in full sentences, sitting in the chair in the room. Exp wheezes throughout, clear with cough CV: RRR with no murmurs, gallops, or rubs. ABD: +BS, soft, NT/ND EXT: no cyanosis, clubbing, or edema MSK: No joint redness or swelling NEURO: CN 2-12 grossly intact. Normal movement of 4 extremities. Normal speech and coordination SKIN: No rashes or open wounds. PSYCH: normal mood and affect Objective Last Vital Signs Temp 36.2 C L 09/04/22 15:16 Pulse 74 09/04/22 15:16 Resp 20 09/04/22 15:16 BP 149/73 H 09/04/22 15:16 Pulse Ox 94 09/04/22 15:16 Laboratory Results - last 24 hr 09/04/22 09/04/22 06:40 08:25 WBC 11.40 H RBC 4.68 Hgb 13.3 Hct 42.1 MCV 90 MCH 28.4 MCHC 31.6 L RDW 13.6 Plt Count 216 MPV 8.8 Immature Gran % 0.5 Neutrophils % 88.7 Lymphocytes % 7.3 Monocytes % 3.4 Eosinophils % 0.0 Basophils % 0.1 Nucleated RBC % 0.0 Absolute Neutrophils 10.11 H Absolute Lymphocytes 0.83 L Absolute Monocytes 0.39 Absolute Eosinophils 0.00 Absolute Basophils 0.01 COVID-19 Source Nasal/Nares SARS-CoV-2 (PCR) Negative Time Spent with Patient Time Spent with Patient: 25-34 minutes Time was spent: preparing to see the patient(eg.review tests), obtaining and/or reviewing separately otained hiistory, ordering medications,tests, procedures, referring, communicating with other health patient care associate, indepentently interpreting results, counseling the patient and care coordination
[2022-09-04] MEDS: Dexamethasone 4 MG/ML VIAL 6 MG IVP (17:30)
[2022-09-04] MEDS: Normal Saline Flush 10 ML SYR IVP (17:31)
[2022-09-04] MEDS: Simvastatin 10 MG TAB PO (19:38)
[2022-09-04] MEDS: Mirtazapine 15 MG TAB 45 MG PO (21:57)
[2022-09-04] MEDS: cefTRIAXone 2 GM/50 ML BAG IVPB (21:58)
[2022-09-05] VITALS (7 sets, daily range): BP systolic 141–148; BP diastolic 67–91; PULSE 84–92; RESP 4–20; TEMP 36–36.3; O2SAT 91–95
[2022-09-05] MEDS: DOXYCYCLINE 100 MG in Normal Saline 100 ML IVPB ×2 (02:36→14:56)
[2022-09-05] MEDS: Albuterol HFA 8 GM 60 PUFF INH IH ×2 (03:58→14:56)
[2022-09-05] MEDS: Levothyroxine 25 MCG TAB PO (05:31)
[2022-09-05] MEDS: Levothyroxine 200 MCG TAB PO (05:31)
[2022-09-05] MEDS: Acetaminophen 325 MG TAB PO (06:09)
[2022-09-05 07:07] LABS: Abs Immature Grans 0.07 10^3/uL (0.0-0.06); Absolute Basophil Count 0.01 10^3/uL (0.0-0.2); Absolute Eosinophil Count 0.01 10^3/uL (0.0-0.7); Absolute Lymphocyte Count 1.07 10^3/uL (1.2-3.4); Absolute Monocyte Count 0.43 10^3/uL (0.1-0.8); Absolute Neutrophil Count 8.73 10^3/uL (1.2-6.7); Basophils % 0.1; Eosinophils % 0.1; HCT 44.4 % (36.0-46.0); HGB 14.5 g/dL (11.2-15.7); Immature Grans % 0.7; Lymphocytes % 10.4; MCH 28.5 pg (27.0-33.0); MCHC 32.7 % (32.0-36.0); MCV 87 fL (80-95); Monocytes % 4.2; Neutrophils % 84.5; RBC 5.09 10^6/uL (3.93-5.22); RDW 13.5 % (11.7-14.6); RDW-SD 42.5 fL; WBC 10.32 10^3/uL (4.4-10.8)
[2022-09-05 07:20] LABS: Anion Gap 10.6 mmol/L (3-11); BUN 15 mg/dL (7-18); CO2 26.4 mmol/L (21.0-32.0); CREATININE 0.8 mg/dL (0.55-1.02); Calcium 9.6 mg/dL (8.5-10.1); Chloride 102 mmol/L (98-107); Estimated GFR 82.23 (mL/min/1.73m2); Glucose 111 mg/dL (74-106); Magnesium 2.4 mg/dL (1.8-2.4); Potassium 4.3 mmol/L (3.5-5.1); Sodium 139 mmol/L (136-145)
[2022-09-05 07:22] LABS: Diff Comment PLT Morph Reviewed; RBC Morphology Normal
[2022-09-05] MEDS: Dexlansoprazole 30 MG CAP 60 MG PO (08:52)
[2022-09-05] MEDS: LISINOPRIL 2.5 MG TAB PO (08:52)
[2022-09-05] MEDS: Methadone Liquid 10 MG/ML 98 MG PO (08:52)
[2022-09-05] MEDS: dilTIAZem CD 180 MG CAPCR PO (08:53)
[2022-09-05] MEDS: Docusate Sodium 100 MG CAP 200 MG PO (08:53)
[2022-09-05] MEDS: Budesonide/Formoterol 160/4.5 6 GM 60 PUFF INH IH ×2 (09:28→19:28)
[2022-09-05] MEDS: POTASSIUM CHLORIDE/D5-0.45NACL 1,000 ML 120 MEQ IV ×2 (10:14→20:30)
--- NOTE | 2022-09-05 12:34 | PDOC.CMIN ---
- If Service Date Differs Date of service: 09/05/22 Time of Service: 12:34 Care Management Initial Assess REASON FOR HOSPITALIZATION:: COPD, hypoxemia PAST MEDICAL HISTORY/PAST SURGICAL HISTORY:: All Active Problems. Discharge planning issues (Acute). DVT prophylaxis (Acute). Anxiety (Chronic 03/27/14). COPD (chronic obstructive pulmonary disease) (Chronic). Recurrent aspiration pneumonia (Acute). Hypoxia (Acute). Dyspnea (Acute). Bronchitis (Acute). Distal radius fracture (Acute). Medical History. Abnormal auditory perception (03/29/14). Depression. GERD (gastroesophageal reflux disease). History of drug abuse. Hypertension. Hypothyroid. Irregular heart rhythm. Opioid use disorder, severe, on maintenance therapy. Trouble in sleeping. Surgical History. History of thyroidectomy PREVIOUS FUNCTIONAL STATUS/SOCIAL/FAMILY SUPPORTS:: Frieda lives in an apartment in [facility] with her s/oMurtaza. She is independent at baseline in the community. CURRENT FUNCTIONAL STATUS:: Frieda was sitting up in her chair when CM met with her. She stated that she is feeling ok, but she is nervous about the possibility of being discharged tomorrow. She reported that per provider, she will have a swallow evaluation tomorrow, and that she may be ready for discharge later in the afternoon. She stated that she is currently on 3LO2, and she does not have home O2. CM discussed services, which she is interested in. CM will continue to follow. ADVANCE DIRECTIVES:: None on file. Has patient been provided with info about the portal/API?: Yes Did the patient sign up for the portal?: No CODE STATUS:: Full Code INSURANCE COVERAGE / FINANCIAL ISSUES:: [facility] CURRENT HOME/COMMUNITY SERVICES/EQUIPMENT:: None. PRIMARY CARE PHYSICIAN:: Beena Patel POTENTIAL DISCHARGE NEEDS:: Evaluations for further needs, follow up appointments. PATIENT/FAMILY EDUCATION NEEDS:: Review discharge instructions and limitations, discussion of self care needs including ask me three. ANTICIPATED BARRIERS TO DISCHARGE:: None identified. TRANSPORTATION:: Via private vehicle by her s/o. PLAN:: Anticipate Frieda will return home once medically cleared. Her s/o will drive her home via private vehicle. She will follow up with her PCP and discharge plan of care. CM will continue to follow. Readmission - Within the Past 30 Days Yes or No: Y - Date of First Admission Date of 1st Admission: 08/19/22 - Date of this Admission Date of Admission: 09/03/22 This admission was: Through ED - Office Visit Since 1st Admission Have you seen your PCP in the office since discharge?: No Had an appointment Been Scheduled?: No Describe barriers for scheduling or getting an appointment: Weekend discharge - I. Interview patient and/or Family Difficulty reaching your doctor or getting an office appt?: No Have you had trouble purchasing/ or taking medication?: Yes Describe barriers fpr purchasing or taking medication: Frieda's main concern on this admission is related to swallowing her medications. How do you take your medications and set up your pills?: independently Have you had trouble with getting meals at home?: No Did you feel ready for discharge when you left the last time: Yes (Pt unsure about readiness) Why did you not feel ready for discharge?: Frieda stated that she felt on the fence about being ready. Were services received that you thought were set up on disch: No If patient did not receive services, were there orders at: No Reason there were no orders at discharge: Frieda is independent at baseline, therefore HH services were not ordered at discharge. How do you think you became sick enough to come back?: Frieda returned to the hospital after choking on a pill, and becoming short of breath. - ED visits How many ED visits in the past 12 months: 3 - Assessment for Readmission Summary of readmission circumstances, based upon interviews: Frieda returned to the hospital after choking on a pill, and becoming short of breath, which is a similar presentation to her previous admission. She is currently on 3LO2, and does not have home O2. She will be closely monitored and evaluated for potential home O2, as well as new home health services, which she is agreeable to. CM will continue to follow.
--- NOTE | 2022-09-05 16:15 | W.PM.PROGNOT ---
Date of Service Date of service: 09/05/22 Time of Service: 16:15 Assessment and Plan Assessment and plan (1) Recurrent aspiration pneumonia: Status: Acute Assessment and plan: Aspiration pneumonia vs pneumonitis. No distress on supplumental O2 ~ 2 lpm, not hypoxic Continue ceftriaxone and doxycycline for pneumonia Speech pathology consult pending Swallowing study Multiple sedating medsL methadone, lorazepam, zolpidem). Limit the gabanergic medications, hold benzo for now (2) COPD (chronic obstructive pulmonary disease): Status: Chronic Assessment and plan: Continue dexamethasone at 6mg Inhalers for COPD (3) Anxiety: Status: Chronic Assessment and plan: Continue outpatient medication although continue holding lorazepam (which was PRN) (4) Hypertension: Assessment and plan: Continue outpatient therapy. (5) Hypothyroid: Assessment and plan: She is on a very high dose of Lt4 and her TSH has been on the low end. I would recommend cutting to 200mcg levothyroxone. (6) Opioid use disorder, severe, on maintenance therapy: Assessment and plan: Continue outpatient methadone dosing when confirmed by JOE. Monitor for oversedation. (7) GERD (gastroesophageal reflux disease): Assessment and plan: Continue PPI IV for now (8) DVT prophylaxis: Status: Acute Assessment and plan: [facility] (9) Discharge planning issues: Status: Acute Assessment and plan: Discharge without services to home when stable, but not before swallowing study and speech eval Discussed with Dr Flores Subjective Subjective Patient reports: no new complaints, tolerating liquids well, voiding w/o difficulty, bowel movement, shortness of breath and afebrile; denies diarrhea, nausea or vomiting Interval history since last seen: Jody continues to have some SOB with exertion, states she took 45 min to put her socks on s/t SOB Exam Narrative Exam Narrative: GEN: Alert and oriented, pleasant and cooperative, gives linear history. No acute distress at rest. HEENT: Head atraumatic. Conjunctiva clear, no icterus. PEERL, EOMI. no rhinorrhea. MMM, OP benign. Neck is supple with no masses or lymphadenopathy, trachea midline LUNGS: Speaking in full sentences, sitting in the chair in the room, talking on the phone, full sentences. Exp wheezes throughout, mostly clear with cough CV: RRR with no murmurs, gallops, or rubs. ABD: +BS, soft, NT/ND EXT: no cyanosis, clubbing, or edema MSK: No joint redness or swelling NEURO: CN 2-12 grossly intact. Normal movement of 4 extremities. Normal speech and coordination SKIN: No rashes or open wounds. PSYCH: normal mood and affect Objective Last Vital Signs Temp 36.0 C L 09/05/22 14:06 Pulse 88 09/05/22 14:06 Resp 20 09/05/22 14:06 BP 141/67 H 09/05/22 14:06 Pulse Ox 91 L 09/05/22 14:06 Laboratory Results - last 24 hr 09/05/22 09/05/22 06:32 06:32 WBC 10.32 RBC 5.09 Hgb 14.5 Hct 44.4 MCV 87 MCH 28.5 MCHC 32.7 RDW 13.5 Plt Count MPV Immature Gran % 0.7 Neutrophils % 84.5 Lymphocytes % 10.4 Monocytes % 4.2 Eosinophils % 0.1 Basophils % 0.1 Nucleated RBC % 0.0 Absolute Neutrophils 8.73 H Absolute Lymphocytes 1.07 L Absolute Monocytes 0.43 Absolute Eosinophils 0.01 Absolute Basophils 0.01 RBC Morphology Normal Sodium 139 Potassium 4.3 Chloride 102 Carbon Dioxide 26.4 Anion Gap 10.6 BUN 15 Creatinine 0.8 Est GFR (CKD-EPI 2020) 82.23 Glucose 111 H Calcium 9.6 Magnesium 2.4 Time Spent with Patient Time Spent with Patient: <25 minutes Time was spent: preparing to see the patient(eg.review tests), ordering medications,tests, procedures, referring, communicating with other health care asst, indepentently interpreting results, counseling the patient and care coordination
[2022-09-05] MEDS: Dexamethasone 4 MG/ML VIAL 6 MG IVP (18:31)
[2022-09-05] MEDS: Normal Saline Flush 10 ML SYR IVP (18:32)
[2022-09-05] MEDS: Albuterol 2.5 MG/3 ML INH SOLN VIAL UPD (18:39)
[2022-09-05] MEDS: Ipratropium 0.5 MG/2.5 ML UPD VIAL UPD (19:29)
[2022-09-05] MEDS: Simvastatin 10 MG TAB PO (20:25)
[2022-09-05] MEDS: cefTRIAXone 2 GM/50 ML BAG IVPB (22:26)
[2022-09-05] MEDS: Zolpidem 5 MG TAB PO (22:27)
[2022-09-05] MEDS: Mirtazapine 15 MG TAB 45 MG PO (22:27)
[2022-09-05] MEDS: Enoxaparin 40 MG/0.4 ML SYR SC (22:28)
[2022-09-06] VITALS (11 sets, daily range): BP systolic 134–152; BP diastolic 73–74; PULSE 79–110; RESP 7–18; TEMP 36.3–36.5; O2SAT 90–97
--- NOTE | 2022-09-06 | DI.US_ITS ---
Exam(s) US UPPER EXTREMITY VENOUS RT EXAM: US UPPER EXTREMITY VENOUS RT CLINICAL HISTORY: Hx DVT; swollen, painful right forearm. TECHNIQUE: Ultrasound examination of the right upper extremity venous system(s) is performed using g rayscale, color-flow, and spectral Doppler analysis. COMPARISON: No exams were available for comparison FINDINGS: The right internal jugular through axillary vein are patent. The brachial vein is patent. The cepha lic vein was not able to be visualized. Thrombus is visible in the proximal through mid basilic vein . No hematoma or drainable collection. IMPRESSION: Thrombus in proximal through mid basilic vein. DATA REPOSITORY:
[2022-09-06] MEDS: DOXYCYCLINE 100 MG in Normal Saline 100 ML IVPB ×2 (01:35→14:28)
[2022-09-06] MEDS: Levothyroxine 25 MCG TAB PO (06:10)
[2022-09-06] MEDS: Levothyroxine 200 MCG TAB PO (06:10)
[2022-09-06] MEDS: POTASSIUM CHLORIDE/D5-0.45NACL 1,000 ML 120 MEQ IV (06:11)
--- NOTE | 2022-09-06 08:00 | DI.RAD_ITS ---
Exam(s) RF MODIFIED SPEECH BA SWALLOW TECHNIQUE: Modified barium swallow was performed in conjunction with speech pathology. CONTRAST MATERIAL: Multiple consistencies of a oral bariumcontrast was administered. COMPARISON: No exams were available for comparison FINDINGS: Flash penetration observed with multiple swallows of thin liquid. Barium tablet administered which stuck at the GE junction. Barium tablet was able past the GE juncti on after multiple swallows of water. IMPRESSION: Narrowing at the GE junction. Please see complete speech pathology report. RADIATION DOSE DELIVERED: sanket Bliss=23.7 mGy
[2022-09-06] MEDS: Budesonide/Formoterol 160/4.5 6 GM 60 PUFF INH IH (08:29)
[2022-09-06] MEDS: Albuterol 2.5 MG/3 ML INH SOLN VIAL UPD ×3 (08:29→16:40)
[2022-09-06] MEDS: Ipratropium 0.5 MG/2.5 ML UPD VIAL UPD ×3 (08:30→16:40)
[2022-09-06 08:37] LABS: Abs Immature Grans 0.03 10^3/uL (0.0-0.06); Absolute Basophil Count 0.01 10^3/uL (0.0-0.2); Absolute Lymphocyte Count 0.94 10^3/uL (1.2-3.4); Absolute Monocyte Count 0.54 10^3/uL (0.1-0.8); Absolute Neutrophil Count 7.62 10^3/uL (1.2-6.7); Basophils % 0.1; HCT 43.8 % (36.0-46.0); HGB 13.9 g/dL (11.2-15.7); Immature Grans % 0.3; Lymphocytes % 10.3; MCH 28.9 pg (27.0-33.0); MCHC 31.7 % (32.0-36.0); MCV 91 fL (80-95); MPV 9.1 fL (8.0-11.0); Monocytes % 5.9; Neutrophils % 83.4; Platelet Count 201 10^3/uL (130-400); RBC 4.81 10^6/uL (3.93-5.22); RDW 13.5 % (11.7-14.6); RDW-SD 45.2 fL; WBC 9.14 10^3/uL (4.4-10.8)
[2022-09-06 08:54] LABS: BUN 11 mg/dL (7-18); CREATININE 0.9 mg/dL (0.55-1.02); Calcium 9.1 mg/dL (8.5-10.1); Chloride 106 mmol/L (98-107); Estimated GFR 71.39 (mL/min/1.73m2); Glucose 110 mg/dL (74-106); Magnesium 2.1 mg/dL (1.8-2.4); Potassium 4.3 mmol/L (3.5-5.1); Sodium 142 mmol/L (136-145)
--- NOTE | 2022-09-06 09:01 | W.PULMCON ---
General Date Of Service Date of service: 09/06/22 Time of Service: 09:01 Reason for Consult: Aspiration of foreign object Assessment and Plan Assessment and plan (1) Foreign body aspiration: Status: Acute Assessment and plan: This is a 62 yo admitted after accidental aspiration of a single Colace gel cap. This occurred Aris and she did need oxygen. She is now off supplemental oxygen and has no further symptoms. There is no focal wheeze or squek on exam and she states she feels as though it is no longer there. Since it is a gel cap, once opened the gel likely leaked and was eventually absorbed by her body. I cannot see any foreign body on CT and in the absence of symptoms or an oxygen requirement, I do not believe she needs bronchoscopy at this time. Foreign body aspiration - no bronchoscopy necessary at this time - MANAGER SALES already engaged History of Present Illness Narrative: This is a 62 yo admitted for recurrent aspiration pneumonia. She was seen here last week for the same issue and aspirated Keflex, requiring a down and back bronchoscopy at [facility] for a foreign body removal. It is noted from this procedure that there was a significant amount of mucus present, but with patent airways and no foreign bodies were found. A BAL was performed with no growth that I can see. She is admitted now for another episode of pill aspiration. She is requiring supplemental O2. There is no foreign body that I can see on her chest CT, however this is not overly reliable. She tells me on Tuesday she took a gel cap colace that got stuck. She drank small sips to try and dislodge it but states it did not seem to work. She then had a coughing fit and could taste the bitterness. She is now doing much better and is on room air. The dyspnea and coughing has improved. Review of Systems All systems reviewed & are unremarkable except as noted in HPI and below PFSH All Active Problems (Updated 09/06/22 @ 14:11 by Janett Pitts MD) Foreign body aspiration (Acute) Discharge planning issues (Acute) DVT prophylaxis (Acute) Anxiety (Chronic 03/27/14) COPD (chronic obstructive pulmonary disease) (Chronic) Recurrent aspiration pneumonia (Acute) Hypoxia (Acute) Dyspnea (Acute) Bronchitis (Acute) Distal radius fracture (Acute) Medical History (Updated 09/06/22 @ 14:11 by Janett Pitts MD) Abnormal auditory perception (03/29/14) Depression GERD (gastroesophageal reflux disease) History of drug abuse Hypertension Hypothyroid Irregular heart rhythm Opioid use disorder, severe, on maintenance therapy Trouble in sleeping Surgical History History of thyroidectomy Social History Smoking/Tobacco Use Status: Former Tobacco Use Quit Date: 06/13/99 Smoking risk assessment performed?: Yes Alcohol Intake: never Drug use: Current Sobriety Substance use type: former substance user Current gender identity: female Do you feel safe at home: Yes Do you feel safe in your relationship?: Yes Visit Medication and Allergies Active Medications Generic Name Dose Route Start Last Admin Trade Name Freq PRN Reason Stop Dose Admin Acetaminophen 0 mg 09/04/22 00:27 09/05/22 06:09 Acetaminophen 325 Mg Tab PO 650 mg Q4H PRN PRN Administration Albuterol Sulfate 2 puff 09/05/22 07:18 09/05/22 14:56 Albuterol Hfa 8 Gm 60 Puff Inh IH 2 puffs QID PRN PRN Administration Albuterol Sulfate 2.5 mg 09/05/22 18:16 09/06/22 08:29 Albuterol 2.5 Mg/3 Ml Inh Soln Vial UPD 2.5 mg Q2H PRN PRN Administration Budesonide/Formoterol Fumarate 2 puff 09/04/22 08:30 09/06/22 08:29 Budesonide/Formoterol 160/4.5 6 Gm 60 Puff Inh IH 2 puff BID EUGENIO Administration Device 1 each 09/04/22 01:00 Inhaler, Assist Device DIRECTED [facility] Dexamethasone 6 mg 09/04/22 18:00 09/05/22 18:31 Dexamethasone 4 Mg/Ml Vial IVP 09/07/22 17:59 6 mg Q24H EUGENIO Administration Dexlansoprazole 60 mg 09/04/22 08:30 09/06/22 08:20 Dexlansoprazole 30 Mg Cap PO Not Given DAILY EUGENIO Diltiazem HCl 180 mg 09/04/22 08:30 09/06/22 08:20 Diltiazem Cd 180 Mg Capcr PO Not Given DAILY [facility] Dimethicone/Zinc Oxide 0 gm 09/04/22 00:22 Abbie Protect Cream 142 Gm Tube TP PRN PRN Docusate Sodium 200 mg 09/04/22 08:30 09/06/22 08:20 Docusate Sodium 100 Mg Cap PO Not Given DAILY EUGENIO Enoxaparin Sodium 40 mg 09/04/22 01:00 09/05/22 22:28 Enoxaparin 40 Mg/0.4 Ml Syr SC 40 mg HS EUGENIO Administration Sodium Chloride 500 mls @ 0 mls/hr 09/03/22 18:40 Saline 500ml Bag IV PRN PRN As Directed Potassium Chloride/Sodium Chloride 1,000 mls @ 120 mls/hr 09/04/22 00:30 09/06/22 06:11 Kcl 20meq/D5-0.45% Nacl IV 120 mls/hr INFUSION EUGENIO Administration Doxycycline Hyclate 100 mg/ 100 mls @ 100 mls/hr 09/04/22 02:00 09/06/22 04:49 Sodium Chloride IVPB Infused Q12H EUGENIO Infusion Ceftriaxone Sodium/Dextrose 2 gm in 50 mls @ 100 mls/hr 09/04/22 22:00 09/06/22 04:49 Rocephin IVPB Infused HS EUGENIO Infusion IV Miscellaneous Supplies 1 each 09/03/22 18:45 Iv Access IV DIRECTED EUGENIO Iohexol 500 ml 09/03/22 15:30 09/03/22 15:28 Omnipaque 350 Mg/Ml 500 Ml Btl-Imaging Package IJ 10/03/22 23:59 70 ml DIRECTED EUGENIO Administration Ipratropium [place] 0.5 mg 09/05/22 20:00 09/06/22 08:30 Ipratropium 0.5 Mg/2.5 Ml Upd Vial UPD 0.5 mg QID EUGENIO Administration Levothyroxine Sodium 25 mcg 09/04/22 06:00 09/06/22 06:10 Levothyroxine 25 Mcg Tab PO 25 mcg 0600 EUGENIO Administration Levothyroxine Sodium 200 mcg 09/04/22 06:00 09/06/22 06:10 Levothyroxine 200 Mcg Tab PO 200 mcg 0600 EUGENIO Administration Lisinopril 2.5 mg 09/04/22 08:30 09/06/22 08:20 Lisinopril 2.5 Mg Tab PO Not Given DAILY EUGENIO Melatonin 6 mg 09/05/22 11:23 Melatonin 3 Mg Tab PO HS PRN PRN Sleep Methadone HCl 98 mg 09/04/22 08:30 09/05/22 08:52 Methadone Liquid 10 Mg/Ml PO 98 mg DAILY EUGENIO Administration Mirtazapine 45 mg 09/04/22 22:00 09/05/22 22:27 Mirtazapine 15 Mg Tab PO 45 mg HS EUGENIO Administration Promethazine HCl 25 mg 09/04/22 01:00 Promethazine 25 Mg Supp UT PRN EUGENIO Simvastatin 10 mg 09/04/22 20:00 09/05/22 20:25 Simvastatin 10 Mg Tab PO 10 mg QPM EUGENIO Administration Sodium Chloride 50 ml 09/03/22 15:30 09/03/22 15:29 Normal Saline - Diluent 50 Ml Vial IJ 50 ml .FOR DI USE EUGENIO Administration Sodium Chloride 0 ml 09/03/22 15:30 09/05/22 18:32 Normal Saline Flush 10 Ml Syr IVP 20 ml PRN PRN Administration Sodium Chloride 0 ml 09/03/22 18:40 Normal Saline Flush 10 Ml Syr IVP PRN PRN Zolpidem Tartrate 5 mg 09/04/22 22:00 09/05/22 22:27 Zolpidem 5 Mg Tab PO 5 mg HS EUGENIO Administration Allergies No Known Allergies Allergy (Unverified 09/03/22 14:45) Exam Narrative Exam Narrative: Gen: NAD, normal respiratory effort, obese HENT: PERRL, nasal turbinates normal without erythema or inflammation, moist oral mucosa, Mallampati 2, No LAD or JVD Chest: No respiratory distress, normal appearance of chest, clear to auscultation bilaterally, no crackles or wheezes, normal inspiratory effort Heart: regular rate and rhythym, no murmurs, rubs or gallops Abdomen: Non-distended, soft, non tender Extremities: No clubbing, edema, cyanosis, rashes Neuro: AAOx3 , non focal Psych: cooperative, appropriate mental affect Results Last Vital Signs Temp 36.3 C L 09/06/22 00:01 Pulse 91 H 09/06/22 08:37 Resp 18 09/06/22 08:30 BP 134/73 09/06/22 00:01 Pulse Ox 97 09/06/22 08:37 Labs 09/06/22 08:15 09/06/22 08:15 Labs: Laboratory Results - last 24 hr 09/06/22 09/06/22 08:15 08:15 WBC 9.14 RBC 4.81 Hgb 13.9 Hct 43.8 MCV 91 D MCH 28.9 MCHC 31.7 L RDW 13.5 Plt Count 201 MPV 9.1 Immature Gran % 0.3 Neutrophils % 83.4 Lymphocytes % 10.3 Monocytes % 5.9 Eosinophils % 0.0 Basophils % 0.1 Nucleated RBC % 0.0 Absolute Neutrophils 7.62 H Absolute Lymphocytes 0.94 L Absolute Monocytes 0.54 Absolute Eosinophils 0.00 Absolute Basophils 0.01 Sodium 142 Potassium 4.3 Chloride 106 Carbon Dioxide 26.0 Anion Gap 10.0 BUN 11 Creatinine 0.9 Est GFR (CKD-EPI 2020) 71.39 Glucose 110 H Calcium 9.1 Magnesium 2.1
[2022-09-06] MEDS: Methadone Liquid 10 MG/ML 98 MG PO (09:02)
--- NOTE | 2022-09-06 09:07 | SP_ITS ---
Date of service: 09/06/22 Time of Service: 09:08 Subjective Clinical (Bedside) Swallow Evaluation Speech Language Pathology Patient referred for Clinical Swallow Evaluation from Dr. Sands for concern of recurrent aspiration events leading to PNA and hypoxia. Precautions: Full code HPI: Pt is a 62 year old female admitted with hypoxia and concern for recurrent aspiration pna after recent suspected pill aspiration event. ORTHODONTIC TECHNICIAN ASSISTANT evaluated patient during recent hospitalization, at that time without major concern for frequent aspiration, question of reflux aspiration, dry mouth also contributing. Patient initially needing about 4L O2 via NC, now weaned down to 1L. No home oxygen at baseline. Patient is NPO at this time awaiting ORTHODONTIC TECHNICIAN ASSISTANT evaluation. Predisposing dysphagia risk factors: GERD, COPD, history of head/neck surgery (complete thyroidectomy) Clinical signs of possible chronic dysphagia: recent difficulty swallowing pills, possible aspiration event Precipitating dysphagia risk factors / triggering event: respiratory failure, hypoxemia. Subjective:?Frieda was contacted in her room, upright in chair at bedside, completing respiratory treatments with RT. Her subjective report this date is consistent with previous: Denies extended history of aspiration or pharyngeal stasis or other perceived swallow difficulty, but more recently she has had increased difficulty with large pills. She describes recent event where a pill got stuck in her throat that she could not swallow down. Initially this did not feel like airway invasion rather than stasis. She was unable to wash it down with copious amounts of water and tea and this is what caused potential coughing/aspiration. Objective Objective PFSH All Active Problems?(Updated 09/04/22 @ 01:08 by Gerson Sands) Discharge planning issues (Acute) DVT prophylaxis (Acute) Anxiety (Chronic 03/27/14) COPD (chronic obstructive pulmonary disease) (Chronic) Recurrent aspiration pneumonia (Acute) Hypoxia (Acute) Dyspnea (Acute) Bronchitis (Acute) Distal radius fracture (Acute) Medical History?(Updated 09/04/22 @ 01:08 by Gerson Sands) Abnormal auditory perception (03/29/14) Depression GERD (gastroesophageal reflux disease) History of drug abuse Hypertension Hypothyroid Irregular heart rhythm Opioid use disorder, severe, on maintenance therapy Trouble in sleeping Surgical History? History of thyroidectomy EXAMINATION: Oriented to self, situation, time.? Language: Verbal expression and auditory comprehension appear WFL Speech: 100% intelligible without dysarthric features. Voice: Mildly rough/hoarse Respiratory: 1L O2 via NC, appears to tolerate well without s/sx dyspnea and reduced respiratory wheeze over prior hospitalization Oral-motor/Peripheral: Cranial nerve screening WFL for strength, coordination, symmetry. Partially edentulous with some poor dentition. Oral mucosa appears mildly dry without significant buildup, good oral care. Cough is sharp strong, as well as glottal coup. Volitional swallow is difficult to palpate through neck tissue but palpable with timely initiation, unable to determine degree of laryngeal elevation. PO TRIALS Level 0 Thin liquids: Single and consecutive sips via straw Level 4 minced/moist: Puree Regular Solids x 4 bites (cracker Oral phase: Mildly prolonged mastication No residue Pharyngeal phase: No s/sx aspiration/penetration observed but patient reports stasis of pills likely localized to level of UES. Topics Addressed:?anatomy/physiology of swallowing mechanism, overt s/sx to monitor for re: potential aspiration of food / liquids, recommendations for improved oral care, relationship between respiratory function changes and deglutition, Rationale for recommendations as outlined below Outcome: Verbalized/demonstrated understanding Assessment Likely mild dysphagia secondary with possible impacts of chronic GERD, COPD (respiratory coordination), dry mouth, exacerbated pulmonary status. Results of bedside evaluation are stable with my last evaluation. Recommend MBSS to rule out silent aspiration or other physiologic deficits of swallowing. Recommended safe swallow strategies, risk management approaches for reflux and oral care to mitigate complications of potential aspiration. Further recommendations to follow MBSS. Plan ORTHODONTIC TECHNICIAN ASSISTANT TO FOLLOW WHILE ON UNIT. MBSS later this date. Short Term Goals: Patient will safely tolerate medication administration and current diet without s/sx aspiration. Patient will be independent with safe swallow strategies and risk management techniques as outlined below. Time spent: 20 min Coding Diagnoses CPT Codes EVALUATE SWALLOWING FUNCTION - [id number] ([id number])
[2022-09-06] MEDS: Barium Sulfate 81% w/w for Oral Suspension 148 GM BTL PO (12:03)
[2022-09-06] MEDS: Barium Sulfate 40% W/V 1500 CPS 250 ML BTL 10 ML PO (12:06)
[2022-09-06] MEDS: Barium Sulfate 40% W/V 240 ML BTL 50 ML PO (12:07)
[2022-09-06] MEDS: Barium Sulfate 700 MG TAB PO (12:08)
--- NOTE | 2022-09-06 12:11 | ST.MBS_ITS ---
Date of Service Date of service: 09/06/22 Time of Service: 11:30 Modified Barium Swallow Study Findings: Video fluoroscopic Swallowing Evaluation (VFSE) / Modified Barium Swallow Study (MBSS) Speech Language Pathology Report Patient Profile: Pt is a 62 year old female admitted with hypoxia and concern for recurrent aspiration pna after recent suspected pill aspiration events. SHEET METAL HELPER evaluated patient during recent hospitalization, at that time without major concern for frequent aspiration due to oral/pharyngeal swallow function, question of reflux aspiration, dry mouth also contributing. Patient initially needing about 4L O2 via NC, now weaned down to 1L. No home oxygen at baseline. Patient is NPO at this time awaiting SHEET METAL HELPER evaluation. SHEET METAL HELPER saw patient earlier this date and she appeared with stable swallow function at that time without s/sx aspiration on bedside clinical exam. IMPRESSIONS: Overal mild-moderate esophageal>oral-pharyngeal dysphagia. No aspiration. Flash penetration of liquids during consecutive sips large volumes (not abnormal) appearing due to delayed swallow initiation (large portion of bolus in pyriforms at initial hyoid excursion). Adequate hyolaryngeal excursion and epiglottic inversion for airway protection. Mild reduced UES distension and proximal esophageal narrowing and flow disruption. Noting persistent proximal stasis of more viscous consistencies just below the Pharyngo-Esopheal segment. Patient had difficulty moving 13mm tablet from front of mouth to back of tongue for reflexive swallowing initiation with use of thick puree, with liquid was able to achieve a/p transit and without any pharyngeal or UES stasis. Noting pill stasis at distal portion of esophagus on survey, attempting to clear with puree, sips liquid, ultimately resolved after consecutive/large volume sips liquid. It is far more likely that patient would experience aspiration as a direct result of reflux or esophageal deficits than due to oral-pharyngeal deficits. Would benefit from diet modification to minced/moist solids to promote improved transit to stomach and for comfort. May benefit from liquid or crushed medications given esophageal deficits, or avoidance of large diameters would likely suffice. Reflux precautions should be followed strictly (smaller/more frequent meals, maintain upright positioning, etc). Frequent oral care and hydration. Provided education regarding reflux management to patient. GI consult recommended. If possible, it is recommended that GI team review videos from anterior/posterior view from today's MBSS. Ancillary tests: defer to GI, consideration of manometry or esophagram? No further SHEET METAL HELPER services needed at this time. RECOMMENDATIONS: Diet: IDDSI Level(s) SOLIDS 5-Minced/Moist solids LIQUIDS 0-Thin Liquids Medication Intake: Crushed when able, with applesauce our thin liquids as tolerated. RISK MANAGEMENT: HOB upright as tolerated; upright for all PO intake. Encourage physical mobility as tolerated. Oral hygiene BID/2x per day & before/after PO intake, using friction with toothbrush on all oral structures as tolerated. Posture/Positioning Needs: Maintain upright position at least 30 minutes after meals, Avoid meals/snacks 2-3 hours prior to reclining/sleeping, Sleep with head of bed elevated to reduce likelihood of nocturnal reflux Level of Assistance/Supervision: Independent Strategies/Adaptations/Assistive Equipment: Reduce auditory and/or visual distractions when eating Small sips and bites when eating Slow rate of intake Alternate intake of liquids and solids, Small+frequent meals throughout day OBJECTIVE Videofluoroscopic Swallow Evaluation (VFSE/MBSS) was conducted in the lateral and [id number] projection by Speech-Language Pathologist, in collaboration with Radiologist, to evaluate oropharyngeal swallow function. Anatomic view under fluoroscopy: WFL, possible mild hypertrophy of posterior wall at PES which appears to mildly alter bolus flow, but does not result in any residue of pyriform sinus or retrograde flow through UES. PO Barium Contrast Trials Oral barium water-soluble contrast was administered as follows: IDDSI Level 0 Varibar thin liquid (40% w/v) IDDSI Level 2 Varibar nectar thick/mildly thick liquid (40% w/v) IDDSI Level 4 Varibar pudding/pureed/extremely thick (40% w/v) IDDSI Level 7 Regular Solid: 1/2 jd cracker coated in 3 mL Varibar pudding 13 mm barium tablet taken with Thin, Puree. MBSImP Component Scores: COMPONENT Scale SCORE 1 Lip closure (0-4) 0 Resulted in no labial escape 2 Hold Position (0-3) 0 Maintained a cohesive bolus between tongue to palatal seal 3 Bolus Preparation (0-4) 1 Resulted in slow prolonged chewing/mashing with complete re-collection 4 Bolus Transport (0-4) 1 Demonstrated delayed initiation of tongue motion 5 Oral Residue (0-4) 1 Was a trace, lining oral structures 6 Swallow Initiation (0-4) 3 Occurred when the bolus head was in the pyriform sinuses 7 Soft Palate Elevation (0-4) 0 Resulted in no bolus between soft palate and t he pharyngeal wall 8 Laryngeal Elevation (0-3) 1 Was decreased with partial superior movement of thyroid cartilage/partial approximation of arytenoids to epiglottic petiole 9 Anterior Hyoid Motion (0-2) 0 Demonstrated complete anterior movement 10 Epiglottic Movement (0-2) 0 Resulted in complete inversion 11 Laryngeal Closure (0-2) 0 Was complete with no air or contrast in laryngeal vestibule 12 Pharyngeal Stripping Wave (0-2) 0 Was present and complete 13 Pharyngeal Contraction (0-3) 0 Was complete 14 PES Opening (0-3) 0 Was completely distended and complete duration with no obstruction of flow 15 Tongue Base Retraction (0-4) 1 Allowed a trace column of contrast or air between tongue base and pharyngeal wall 16 Pharyngeal Residue (0-4) 1 Showed a trace within or on pharyngeal structure s 17 Esophageal Clearance (0-4) 2 Resulted in esophageal retention with retrogra de flow below pharyngoesophageal segment Results: COMPONENT Scale SCORE 1 Oral Score (0-18) 5 A 2 Pharyngeal Score (0-29) 1 3 Esophageal Score (0-4) 2 Dysphagia Outcome and Severity Scale: COMPONENT Scale SCORE 1 LEVEL (1-7) 6 Full PO: Normal Diet - Within functional limits/modified independence Penetration-Aspiration Scale: COMPONENT Scale SCORE 1 Thin liquid (1-8) 2 Contrast entered the airway, remained above the vocal folds, and was ejected from the airway. 2 [place] thick (1-8) 1 Contrast did not enter the airway 3 Honey thick (1-8) NA 4 Pudding thick (1-8) 1 Contrast did not enter the airway 5 Cookie (1-8) 1 Contrast did not enter the airway DIGEST: COMPONENT Scale SCORE 1 Thin Max PAS (1-8) NA 2 [place] Max PAS (1-8) NA 3 Honey Max PAS (1-8) NA 4 Liquid Max PAS (1-8) 1 Maximum PAS Score over all liquid trials 5 Liquid Max Residue (0-3) NA 6 Pudding Max PAS (1-8) NA 7 Pudding Max Residue (0-3) NA 8 Cracker Max PAS (1-8) NA 9 Cracker Max Residue (0-3) NA 10 Frequency if PAS >= 3 (0-3) NA 11 Amount if PAS >= 5 (0-1) NA Results: COMPONENT Scale SCORE 1 SAFETY GRADE (0-4) 0 Safety grade for swallowing based on patterns of aspiration or laryngeal penetration 2 EFFICIENCY GRADE (0-4) 0 Efficiency grade of swallowing based on patterns of pharyngeal residue 3 DIGEST (0-4) 0 Severity grade of pharyngeal dysphagia: 0 - Normal, 1 - Mild, 2 - Moderate, 3 - Severe, 4 - Life threatening 4 Max Exam PAS (1-8) 1 Maximum PAS Score over all bolus trials 5 Max Exam Residue (0-3) 0 Maximum Exam Residue over all bolus trials Observations not captured in quantitative data: see impressions Trialed Compensatory Strategies & Outcome: Maneuvers Successful (+) Unsuccessful (-) Postures Successful (+) Unsuccessful (-) 3 second Preparatory Set? ? +/- Chin Tuck Posture? ? Cough? ? Posterior Head tilt?? ? - ? Reflexive? Cued? Throat Clear? ? Head Tilt to? Reflexive? Left? Cued? Right? ? Saliva swallow? ? + Head Turn/Rotate to? ? Supraglottic Swallow? Left? ? Super-supraglottic Swallow? Right? ? Bolus Modifications Successful (+) Unsuccessful (-) Delivery/Alternating Consistencies ? Follow with Liquid Wash + clears esophageal stasis with large volumes + time ? Follow with Solid Bolus? Delivery/Via Straw? ? Reduced Volume? ? + (reduced penetration) Reduced Rate of Intake? ? + (reduced penetration) Increased Viscosity? ? - (for oral clearance of barium tablet) Other:?? ? Thank you for allowing us to take part in this patient's care. Please feel free to contact the [facility] Speech Language Pathology Department with any questions/concerns. Coding CPT Codes MOTION FLUOROSCOPY/SWALLOW - [id number] ([id number])
--- NOTE | 2022-09-06 14:37 | PDOC.CMPRO ---
- If Service Date Differs Date of service: 09/06/22 Time of Service: 14:37 Care Management Progress Note S/O: Frieda is sitting up in bed eating lunch when CM met with her. She discharged from the hospital last week and notes that her SOB with exertion never really improved. She ended up buying a O2 monitor for home and frequently dropped to 88% with ambulation and recovered with rest. Per pt, she came back to the ER after aspirating on another pill and feels better today. A: 62 year old female admitted to [facility] on 09/02/22 for COPD, Hypoxemia P: Anticipate, Frieda will return home (with new Home O2, if indicated) once medically cleared. Her s/o will drive her home via private vehicle. She will follow up with her PCP and discharge plan of care. CM will continue to follow.
[2022-09-06] MEDS: Normal Saline Flush 10 ML SYR IVP (14:50)
--- NOTE | 2022-09-06 15:48 | DSE_ITS ---
Date of service: 09/06/22 Time of Service: 15:48 DS: Diagnosis Discharge Diagnosis (1) Foreign body aspiration: Status: Resolved Discharge Plan Disposition Patient Disposition: Home Condition: Good Discharge Details Reason For Visit: COPD,Hypoxemia Admit Date/Time: 09/03/22 18:40 Admit Provider: Jairon Flores Attending Provider: Jairon Flores Primary Care Provider: Beena Patel Hospital Course Hospital Course: This is a 62 female patient with past medical history of dysrhythmia (unknown rhythm), thyroid cancer, COPD and obesity who choked on a pill 2 days prior to presenting to the [facility] ED with increasing shortness of breath and oxygen needs on 08/19/2022.?She denied fever, and endorsed non-productive cough. She denied any palpitations recently.? The patient continued to require oxygen therapy though she was having less respiratory distress in the ED and was admitted for COPD exacerbation with continued hypoxemia. Imaging and lab were unrevealing, did not show aspiration pneumonia, no PE.?There was some evidence of atelectasis, possible pneumonia bibasilar infiltrates. ?She is a full code.? She was treated with doxycycline and ceftriaxone IV.? She was seen by speech therapy and a modified barium-swallow test was done. ?She had an echocardiogram with estimated EF 60%, normal wall motion. She improved and no longer required oxygen. vital signs were stable. She was seen by pulmonology. Prior to discharge she was complaining of pain to right middle forearm where an IV had been disc ontinued. We did do an ultrasound of that arm with thrombus in proximal mid basilic vein.? She was told to compress, heat, elevate, rest her arm and take ibuprofen 600 mg 4 times a day for five days.? She was told that it was superficial and will get better.? She was discharged to home with a follow up appointment made urgently at [facility]. Recommend crushing medications and taking with something that you can swallow such as apple sauce. Do not crush Diltiazem; Do not crush dexlansoprazole. If you are unable to take the pill, contact your PCP to have a prescription for liquid or an alternative. Follow up with Gastroenterology at [facility] for possible esophageal manometry. Discussed with Dr. Flores Home Meds and New Rx's Prescriptions: Continued methadone 10 MG/5 ML solution 98 mg PO DAILY diltiazem HCl [Taztia XT] 240 MG capsule,extended release 24 hr 180 mg PO DAILY levothyroxine 25 MCG tablet 25 mcg PO DAILY mirtazapine 45 MG tablet 45 mg PO DAILY levothyroxine 200 MCG tablet 200 mcg PO DAILY zolpidem 5 MG tablet 5 mg PO HS mirtazapine 15 MG tablet 15 mg PO DAILY docusate sodium [Dulcolax Stool Softener (dss)] 100 MG capsule 200 mg PO DAILY simvastatin 10 MG tablet 10 mg PO DAILY promethazine [Phenadoz] 25 MG suppository 25 mg AL PRN dexlansoprazole [Dexilant] 60 mg Capsule,Biphase Delayed Releas 1 tab PO DAILY lisinopril 2.5 mg Tablet 1 tab PO DAILY lorazepam 1 MG tablet 1 mg PO Q6H PRN PRNQty: 14 0RF budesonide-formoterol [Symbicort] 160-4.5 mcg/actuation Hfa Aerosol Inhaler 2 puff inhalation BID Qty: 0 0RF albuterol sulfate 90 mcg/actuation HFA aerosol inhaler 2 puff inhalation QID PRNQty: 8.5 0RF Discontinued cephalexin 500 mg tablet 500 mg PO QID Qty: 28 0RF Discharge Instructions Instructions: Superficial Thrombophlebitis (DC), Aspiration Pneumonia (DC) Additional Instructions: Recommend crushing medications and taking with something that you can swallow such as apple sauce. Do not crush Diltiazem; Do not crush dexlansoprazole. If you are unable to take the pill, contact your PCP to have a prescription for liquid or an alternative. Follow up with Gastroenterology at [facility] for possible esophageal manometry. You have a supperficial clot in your right basilic vein. Apply heat, compression and elevate, take ibuprofen 600 mg 4 times a day for five days. Stand Alone Forms: Nursing Discharge Form Referrals: Beena Patel [Primary Care Provider] - (Please keep your follow up appoint you already have set up ) Activity:: Activity as Tolerated Equipment/Supplies:: No Equipment Needed Diet:: As Tolerated Discharge Orders Discharge Orders: Discharge Order (Routine); Ordered 09/06/22 Ordered By: Taylor Cervantes Discharge Data Discharge Date/Time-TO BE ENTERED AT DEPARTURE: 09/06/22 17:02 DS: Summary Time Spent with Patient providing and/or coordinating discharge services: Greater than 30 minutes Status at Discharge Functional status at discharge: independent ambulation Overall status at discharge: patient is progressing back to baseline Mental Status: mental status grossly normal Speech and Movement: speech and movement normal Mood: congruent mood Affect: normal affect Exam Narrative Exam Narrative: Gen: NAD, normal respiratory effort, obese HENT: PERRL, nasal turbinates normal without erythema or inflammation, moist oral mucosa, Mallampati 2, No LAD or JVD Chest: No respiratory distress, normal appearance of chest, clear to auscultation bilaterally, no crackles or wheezes, normal inspiratory effort Heart: regular rate and rhythym, no murmurs, rubs or gallops Abdomen: Non-distended, soft, non tender Extremities: No clubbing, edema, cyanosis, rashes Neuro: AAOx3 , non focal Psych: cooperative, appropriate mental affect Psych Mental Status: mental status grossly normal Speech and Movement: speech and movement normal Mood: congruent mood Affect: normal affect DS: Data Vitals/I&O Vitals and I&O: Vital Signs Temperature 36.5 C 09/06/22 14:18 Temperature Source Tympanic 09/06/22 14:18 Pulse 95 H 09/06/22 14:18 Pulse Rhythm Regular 09/06/22 05:09 Pulse 88 09/04/22 14:30 Respiratory Rate 18 09/06/22 14:18 Respiratory Effort Normal, Non-Labored 09/06/22 05:09 Respiratory Depth Normal 09/06/22 05:09 Respiratory Pattern Normal 09/06/22 05:09 Blood Pressure 152/74 H 09/06/22 14:18 Blood Pressure Mean 90 09/03/22 20:35 Blood Pressure Position Sitting 09/03/22 12:48 Pulse Oximetry 91 L 09/06/22 14:18 Oxygen Delivery Method Room Air 09/06/22 14:18 Oxygen Flow Rate 0 09/06/22 14:18 Pain Level 0 09/06/22 09:02 Comment Pt. denies pain at this time. 09/06/22 07:56 Intake & Output 09/05/22 09/06/22 09/06/22 23:59 11:59 23:59 Intake Total 3180 / 3790 1779 Balance 3180 / 3790 1779 Weight 120.5 kg Intake: IV 1100 / 1200 1779 Oral 2079 Other: Urine Appearance Clear Comment pt voids independently, denies any discomfort or complications pt voided x1 Voiding Methods Toilet Data Completed and Pending Labs on day of discharge: Labs from last 24 hours 09/06/22 09/06/22 08:15 08:15 WBC 9.14 RBC 4.81 Hgb 13.9 Hct 43.8 MCV 91 D MCH 28.9 MCHC 31.7 L RDW 13.5 Plt Count 201 MPV 9.1 Immature Gran % 0.3 Neutrophils % 83.4 Lymphocytes % 10.3 Monocytes % 5.9 Eosinophils % 0.0 Basophils % 0.1 Nucleated RBC % 0.0 Absolute Neutrophils 7.62 H Absolute Lymphocytes 0.94 L Absolute Monocytes 0.54 Absolute Eosinophils 0.00 Absolute Basophils 0.01 Sodium 142 Potassium 4.3 Chloride 106 Carbon Dioxide 26.0 Anion Gap 10.0 BUN 11 Creatinine 0.9 Est GFR (CKD-EPI 2020) 71.39 Glucose 110 H Calcium 9.1 Magnesium 2.1 PFSH All Active Problems (Updated 09/07/22 @ 00:04 by FRAN CARRANZA) Anxiety (Chronic 03/27/14) COPD (chronic obstructive pulmonary disease) (Chronic) Recurrent aspiration pneumonia (Acute) Bronchitis (Acute) Distal radius fracture (Acute) Medical History (Updated 09/07/22 @ 00:04 by FRAN CARRANZA) Abnormal auditory perception (03/29/14) Depression GERD (gastroesophageal reflux disease) History of drug abuse Hypertension Hypothyroid Irregular heart rhythm Opioid use disorder, severe, on maintenance therapy Trouble in sleeping Surgical History History of thyroidectomy Social History Smoking/Tobacco Use Status: Former Tobacco Use Quit Date: 06/13/99 Smoking risk assessment performed?: Yes Alcohol Intake: never Drug use: Current Sobriety Substance use type: former substance user Current gender identity: female Do you feel safe at home: Yes Do you feel safe in your relationship?: Yes Time Spent with Patient Time Spent with Patient: 45-69 minutes Time was spent: preparing to see the patient(eg.review tests), ordering medications,tests, procedures, referring, communicating with other health patient care representative, indepentently interpreting results, counseling the patient and care coordination
--- NOTE | 2022-09-06 15:54 | PHA.REVIEW2 ---
Pharmacy Admission Review - Admission Clinical Review Antibiotic Activity - Pharmacy Antibiotic Review Pharmacy Antibiotic Activity: D/C antibiotic (Ceftriaxone and doxycycline discontinued on discharge per provider.)
--- NOTE | 2022-09-06 16:00 | PDOC.CMDIS ---
- If Service Date Differs Date of service: 09/06/22 Time of Service: 16:00 LACE Index Scoring Tool - Questions: Length of Stay (in days): 3 Acuity (Admit via E.D.?): Yes E.D. Visits: 3 - Answers: Total Score: 9 Risk of Readmission: Low Risk Care Management Discharge Reason for Hospitalization: COPD, hypoxemia Discharge Plan: Frieda is discharged home via private vehicle with family. She will follow up with community providers and discharge plan of care as prescribed. She will keep her previously scheduled hospital follow up with her PCP. Patient/Family Education Needs: Review discharge instructions, limitations and plan to follow up with community providers. Discuss ask me three.
[2022-09-06] MEDS: Bacitracin 1 PACKET TP (16:30)
== END 2022-09-06 17:02 | disposition home or self-care (01) | DRG 178 ==
LOC: ER 18:57 → MS 09-04 14:59
PROVIDERS: Emergency Medicine; Family Medicine; Nurse Practitioner Family; Admitting Provider Family Medicine; Emergency Provider Emergency Medicine; PCP Nurse Practitioner; Visit Provider Family Medicine
DX: J69.0 Pneumonitis due to inhalation of food and vomit (principal); F11.20 Opioid dependence, uncomplicated; I82.611 Acute embolism and thrombosis of superficial veins of right upper extremity; R09.02 Hypoxemia; K21.9 Gastro-esophageal reflux disease without esophagitis; F32.A Depression, unspecified; Z87.891 Personal history of nicotine dependence; E89.0 Postprocedural hypothyroidism; I49.9 Cardiac arrhythmia, unspecified; F51.9 Sleep disorder not due to a substance or known physiological condition, unspecified; J44.9 Chronic obstructive pulmonary disease, unspecified; F41.9 Anxiety disorder, unspecified
CPT/HCPCS: 36410; 36415; 80048; 80053; 87635; 92610; 92611; 94640; 99285; J1650; 71045; 71260; 74221; 83735; 85025; 93971; 94664; 94668; 94760; 99232; 99239; J0696; J1100; J3490; J7613; J7614; J7644

== ENCOUNTER 2022-11-04 12:32 | Emergency (ER) | payer MEDICARE, SELFPAY ==
[2022-11-04 12:40] VITALS: BP 152/84; PULSE 97; RESP 18; TEMP 37.1; O2SAT 95
--- NOTE | 2022-11-04 16:09 | ED.GENADUL_ITS ---
Discharge Plan Discharge Details Chief Complaint: GenMedical Primary Care Provider: Beena Patel ED Provider: Trent Parry Home Meds and New Rx's Prescriptions: No Action methadone 10 MG/5 ML solution 98 mg PO DAILY diltiazem HCl [Taztia XT] 240 MG capsule,extended release 24 hr 180 mg PO DAILY levothyroxine 25 MCG tablet 25 mcg PO DAILY mirtazapine 45 MG tablet 45 mg PO DAILY levothyroxine 200 MCG tablet 200 mcg PO DAILY zolpidem 5 MG tablet 5 mg PO HS mirtazapine 15 MG tablet 15 mg PO DAILY docusate sodium [Dulcolax Stool Softener (dss)] 100 MG capsule 200 mg PO DAILY simvastatin 10 MG tablet 10 mg PO DAILY promethazine [Phenadoz] 25 MG suppository 25 mg [place] PRN dexlansoprazole [Dexilant] 60 mg Capsule,Biphase Delayed Releas 1 tab PO DAILY lisinopril 2.5 mg Tablet 1 tab PO DAILY lorazepam 1 MG tablet 1 mg PO Q6H PRN PRNQty: 14 0RF budesonide-formoterol [Symbicort] 160-4.5 mcg/actuation Hfa Aerosol Inhaler 2 puff inhalation BID Qty: 0 0RF albuterol sulfate 90 mcg/actuation HFA aerosol inhaler 2 puff inhalation QID PRNQty: 8.5 0RF Medical Decision Making 62-year-old female here with concern for facial swelling and leg swelling bilaterally. Patient was hospitalized in August for pneumonia and apparently did require diuretic treatment during that hospitalization. She is concerned for potential congestive heart failure. Patient is saturating well and in no respiratory distress. Lungs clear to auscultation bilaterally. Consider mild congestive heart versus renal insufficiency versus other. Plan to check screening labs including creatinine, CBC and BNP. HPI General Mode of arrival: ambulatory . Date/Time Provider Initiated Documentation: 11/04/22 14:43 . Limitations to Documentation: no limitations . Information obtained by: patient . HPI Narrative: 61-year-old female with multiple medical problems, admitted in August for pneumonia, here today with concern for facial swelling. Patient notes she has had progressive worsening of facial puffiness over the past couple weeks. She also notes some swelling of her legs bilaterally. She has no associated shortness of breath. No fevers. No chest pain. Related Data Home Medications Medication Instructions Recorded Confirmed diltiazem HCl 240 mg capsule,24 180 mg PO DAILY 01/17/13 09/03/22 hr,extended release (Taztia XT) levothyroxine 200 mcg tablet 200 mcg PO DAILY 01/17/13 09/03/22 levothyroxine 25 mcg tablet 25 mcg PO DAILY 01/17/13 09/03/22 methadone 10 mg/5 mL oral solution 98 mg PO DAILY 01/17/13 09/03/22 mirtazapine 15 mg tablet 15 mg PO DAILY 01/17/13 09/03/22 mirtazapine 45 mg tablet 45 mg PO DAILY 01/17/13 09/03/22 zolpidem 5 mg tablet 5 mg PO HS 01/17/13 09/03/22 docusate sodium 100 mg capsule 200 mg PO DAILY 01/23/13 09/03/22 (Dulcolax Stool Softener (docusate)) simvastatin 10 mg tablet 10 mg PO DAILY 03/12/13 09/03/22 promethazine 25 mg rectal 25 mg [place] PRN 03/15/14 09/03/22 suppository (Phenadoz) lorazepam 1 mg tablet 1 mg PO Q6H PRN PRN #14 tabs 11/05/16 09/03/22 dexlansoprazole 60 mg 1 tab PO DAILY 03/17/18 09/03/22 capsule,biphase delayed release (Dexilant) lisinopril 2.5 mg tablet 1 tab PO DAILY 03/17/18 09/03/22 albuterol sulfate 90 mcg/actuation 2 puff inhalation QID PRN #8.5 08/29/22 09/03/22 aerosol inhaler grams budesonide-formoterol HFA 160 2 puff inhalation BID #0 grams 08/29/22 09/03/22 mcg-4.5 mcg/actuation aerosol inhaler (Symbicort) Previous Rx's Medication Instructions Recorded lorazepam 1 mg tablet 1 mg PO Q6H PRN PRN #14 tabs 11/05/16 albuterol sulfate 90 mcg/actuation 2 puff inhalation QID PRN #8.5 08/29/22 aerosol inhaler grams budesonide-formoterol HFA 160 2 puff inhalation BID #0 grams 08/29/22 mcg-4.5 mcg/actuation aerosol inhaler (Symbicort) Allergies Allergy/AdvReac Type Severity Reaction Status Date / Time No Known Allergies Allergy Unverified 09/03/22 14:45 General Stated Complaint: GenMedical PAULINE: 4 Review of Systems All systems reviewed & are unremarkable except as noted in HPI and below Constitutional Constitutional: Denies fever(s) PFSH All Active Problems Anxiety (Chronic 03/27/14) COPD (chronic obstructive pulmonary disease) (Chronic) Recurrent aspiration pneumonia (Acute) Bronchitis (Acute) Distal radius fracture (Acute) Medical History Abnormal auditory perception (03/29/14) Depression GERD (gastroesophageal reflux disease) History of drug abuse Hypertension Hypothyroid Irregular heart rhythm Opioid use disorder, severe, on maintenance therapy Trouble in sleeping Surgical History History of thyroidectomy Social History Smoking/Tobacco Use Status: Former Tobacco Use Quit Date: 06/13/99 Smoking risk assessment performed?: Yes Alcohol Intake: never Drug use: Current Sobriety Substance use type: former substance user Current gender identity: female Do you feel safe at home: Yes Do you feel safe in your relationship?: Yes Exam Const General: cooperative and no acute distress HENMT Mouth: moist mucous membranes Eyes Conjunctivae: normal conjunctivae Sclera: normal sclerae Neck Neck: trachea midline and supple Resp Auscultation: clear to auscultation bilaterally, no rales, no rhonchi and no wheezes Cardio Rate: regular rate and not tachycardic Rhythm: regular rhythm Heart Sounds: murmur systolic II/ GI Palpation: soft, not firm, no guarding, no masses, not rigid and nontender Skin General skin exam: no rashes or lesions noted Neuro General: patient alert, patient awake, patient oriented x3 and tone normal Extrem General: edema Laterality: bilateral and no pedal edema Psych Appearance: grossly normal Mental Status: mental status grossly normal Course Vital Signs Vital signs: Vital Signs Temperature 37.1 C 11/04/22 12:40 Pulse 97 H 11/04/22 12:40 Respiratory Rate 18 11/04/22 12:40 Blood Pressure 152/84 H 11/04/22 12:40 Pulse Oximetry 95 11/04/22 12:40 Temperature 37.1 C 11/04/22 12:40 Temperature Source Oral 11/04/22 12:40 Pulse 97 H 11/04/22 12:40 Respiratory Rate 18 11/04/22 12:40 Respiratory Effort Normal, Non-Labored 11/04/22 15:59 Blood Pressure 152/84 H 11/04/22 12:40 Blood Pressure Position Sitting 11/04/22 12:40 Pulse Oximetry 95 11/04/22 12:40 Oxygen Delivery Method Room Air 11/04/22 12:40 Oxygen Flow Rate 0 11/04/22 12:40 Pain Level 0 11/04/22 12:40
[2022-11-04 16:32] LABS: HGB 13.7 g/dL (11.2-15.7); MCH 28.3 pg (27.0-33.0); MCHC 31.9 % (32.0-36.0); MCV 89 fL (80-95); MPV 8.9 fL (8.0-11.0); Platelet Count 247 10^3/uL (130-400); RBC 4.84 10^6/uL (3.93-5.22); RDW 13.2 % (11.7-14.6); RDW-SD 42.9 fL; WBC 6.64 10^3/uL (4.4-10.8)
[2022-11-04 16:54] LABS: ALT 27 U/L (14-59); AST 18 U/L (15-37); Albumin 3.9 g/dL (3.4-5.0); Alkaline Phosphatase 125 U/L (46-116); Anion Gap 5.3 mmol/L (3-11); BUN 9 mg/dL (7-18); Bilirubin, Total 0.5 mg/dL (0.2-1.0); CO2 31.7 mmol/L (21.0-32.0); CREATININE 0.8 mg/dL (0.55-1.02); Calcium 9.3 mg/dL (8.5-10.1); Chloride 105 mmol/L (98-107); Estimated GFR 82.23 (mL/min/1.73m2); Glucose 93 mg/dL (74-106); NT-proBNP 76 pg/mL (<300); Sodium 142 mmol/L (136-145); Total Protein 7.7 g/dL (6.4-8.2)
--- NOTE | 2022-11-04 17:38 | ED.GENADUL_ITS ---
Discharge Plan Disposition Patient Disposition: Home Condition: Stable Discharge Details Clinical Impression: Dyspnea, unspecified Primary Care Provider: Beena Patel ED Provider: Johana Aldrich Home Meds and New Rx's Prescriptions: Continued methadone 10 MG/5 ML solution 98 mg PO DAILY diltiazem HCl [Taztia XT] 240 MG capsule,extended release 24 hr 180 mg PO DAILY levothyroxine 25 MCG tablet 25 mcg PO DAILY mirtazapine 45 MG tablet 45 mg PO DAILY levothyroxine 200 MCG tablet 200 mcg PO DAILY zolpidem 5 MG tablet 5 mg PO HS mirtazapine 15 MG tablet 15 mg PO DAILY docusate sodium [Dulcolax Stool Softener (dss)] 100 MG capsule 200 mg PO DAILY simvastatin 10 MG tablet 10 mg PO DAILY promethazine [Phenadoz] 25 MG suppository 25 mg [place] PRN dexlansoprazole [Dexilant] 60 mg Capsule,Biphase Delayed Releas 1 tab PO DAILY lisinopril 2.5 mg Tablet 1 tab PO DAILY lorazepam 1 MG tablet 1 mg PO Q6H PRN PRNQty: 14 0RF budesonide-formoterol [Symbicort] 160-4.5 mcg/actuation Hfa Aerosol Inhaler 2 puff inhalation BID Qty: 0 0RF albuterol sulfate 90 mcg/actuation HFA aerosol inhaler 2 puff inhalation QID PRNQty: 8.5 0RF Discharge Instructions Instructions: Dyspnea (ED) Additional Instructions: continue usual medications as previously directed. there is no abnormality on lab or physical exam to explain your symptoms please follow up with primary care provider or return here sooner for new or worsening symptoms Referrals: Beena Patel [Primary Care Provider] - Discharge Data Discharge Date/Time-TO BE ENTERED AT DEPARTURE: 11/04/22 17:56 Medical Decision Making <Johana Aldrich NP - Last Filed: 11/04/22 17:44> care and report received from Dr Sharda Parry, patient remains stable and asymptomatic, labs reviewed and unremarkable, physical exam remains normal with no resp distress, clear lungs, oxygenating in mid to high 90's on room air. stable and ready for discharge home with no services. Medical Records Medical records reviewed: Yes I reviewed the patient's medical records. <Trent Parry MD - Last Filed: 06/07/23 17:26> Note: I evaluated this patient and signed out care to SHIVA Aldrich. The patient was dispositioned independently by SHIVA Aldrich. HPI <Johana Aldrich NP - Last Filed: 11/04/22 17:44> General Mode of arrival: ambulatory . Date/Time Provider Initiated Documentation: 11/04/22 14:43 . Limitations to Documentation: no limitations . Information obtained by: patient . HPI Narrative: see Dr Parry note Related Data Home Medications Medication Instructions Recorded Confirmed diltiazem HCl 240 mg capsule,24 180 mg PO DAILY 01/17/13 09/03/22 hr,extended release (Taztia XT) levothyroxine 200 mcg tablet 200 mcg PO DAILY 01/17/13 09/03/22 levothyroxine 25 mcg tablet 25 mcg PO DAILY 01/17/13 09/03/22 methadone 10 mg/5 mL oral solution 98 mg PO DAILY 01/17/13 09/03/22 mirtazapine 15 mg tablet 15 mg PO DAILY 01/17/13 09/03/22 mirtazapine 45 mg tablet 45 mg PO DAILY 01/17/13 09/03/22 zolpidem 5 mg tablet 5 mg PO HS 01/17/13 09/03/22 docusate sodium 100 mg capsule 200 mg PO DAILY 01/23/13 09/03/22 (Dulcolax Stool Softener (docusate)) simvastatin 10 mg tablet 10 mg PO DAILY 03/12/13 09/03/22 promethazine 25 mg rectal 25 mg [place] PRN 03/15/14 09/03/22 suppository (Phenadoz) lorazepam 1 mg tablet 1 mg PO Q6H PRN PRN #14 tabs 11/05/16 09/03/22 dexlansoprazole 60 mg 1 tab PO DAILY 03/17/18 09/03/22 capsule,biphase delayed release (Dexilant) lisinopril 2.5 mg tablet 1 tab PO DAILY 03/17/18 09/03/22 albuterol sulfate 90 mcg/actuation 2 puff inhalation QID PRN #8.5 08/29/22 09/03/22 aerosol inhaler grams budesonide-formoterol HFA 160 2 puff inhalation BID #0 grams 08/29/22 09/03/22 mcg-4.5 mcg/actuation aerosol inhaler (Symbicort) Previous Rx's Medication Instructions Recorded lorazepam 1 mg tablet 1 mg PO Q6H PRN PRN #14 tabs 11/05/16 albuterol sulfate 90 mcg/actuation 2 puff inhalation QID PRN #8.5 08/29/22 aerosol inhaler grams budesonide-formoterol HFA 160 2 puff inhalation BID #0 grams 08/29/22 mcg-4.5 mcg/actuation aerosol inhaler (Symbicort) Allergies Allergy/AdvReac Type Severity Reaction Status Date / Time No Known Allergies Allergy Unverified 09/03/22 14:45 General Stated Complaint: GenMedical PAULINE: 4 PFSH <Johana Aldrich NP - Last Filed: 11/04/22 17:44> All Active Problems (Updated 11/04/22 @ 17:44 by Johana Aldrich NP) Dyspnea, unspecified (Acute) Anxiety (Chronic 03/27/14) COPD (chronic obstructive pulmonary disease) (Chronic) Recurrent aspiration pneumonia (Acute) Bronchitis (Acute) Distal radius fracture (Acute) Medical History Abnormal auditory perception (03/29/14) Depression GERD (gastroesophageal reflux disease) History of drug abuse Hypertension Hypothyroid Irregular heart rhythm Opioid use disorder, severe, on maintenance therapy Trouble in sleeping Surgical History History of thyroidectomy Social History Smoking/Tobacco Use Status: Former Tobacco Use Quit Date: 06/13/99 Smoking risk assessment performed?: Yes Alcohol Intake: never Drug use: Current Sobriety Substance use type: former substance user Current gender identity: female Do you feel safe at home: Yes Do you feel safe in your relationship?: Yes Course <Johana Aldrich NP - Last Filed: 11/04/22 17:44> Vital Signs Vital signs: Vital Signs Temperature 37.1 C 11/04/22 12:40 Pulse 97 H 11/04/22 12:40 Respiratory Rate 18 11/04/22 12:40 Blood Pressure 152/84 H 11/04/22 12:40 Pulse Oximetry 95 11/04/22 12:40 Temperature 37.1 C 11/04/22 12:40 Temperature Source Oral 11/04/22 12:40 Pulse 97 H 11/04/22 12:40 Respiratory Rate 18 11/04/22 12:40 Respiratory Effort Normal, Non-Labored 11/04/22 15:59 Blood Pressure 152/84 H 11/04/22 12:40 Blood Pressure Position Sitting 11/04/22 12:40 Pulse Oximetry 95 11/04/22 12:40 Oxygen Delivery Method Room Air 11/04/22 12:40 Oxygen Flow Rate 0 11/04/22 12:40 Pain Level 0 11/04/22 12:40 Lab/Test Results Lab/Test Results: Laboratory Tests Range/Units 11/04/22 11/04/22 16:23 16:23 WBC (4.4-10.8) 10^3/uL 6.64 RBC (3.93-5.22) 10^6/uL 4.84 Hgb (11.2-15.7) g/dL 13.7 Hct (36.0-46.0) % 43.0 MCV (80-95) fL 89 MCH (27.0-33.0) pg 28.3 MCHC (32.0-36.0) % 31.9 L RDW (11.7-14.6) % 13.2 Plt Count (130-400) 10^3/uL 247 MPV (8.0-11.0) fL 8.9 Sodium (136-145) mmol/L 142 Potassium (3.5-5.1) mmol/L 4.0 Chloride (98-107) mmol/L 105 Carbon Dioxide (21.0-32.0) mmol/L 31.7 Anion Gap (3-11) mmol/L 5.3 BUN (7-18) mg/dL 9 Creatinine (0.55-1.02) mg/dL 0.8 Est GFR (CKD-EPI 2020) (mL/min/1.73m2) 82.23 Glucose (74-106) mg/dL 93 Calcium (8.5-10.1) mg/dL 9.3 Total Bilirubin (0.2-1.0) mg/dL 0.5 AST (15-37) U/L 18 ALT (14-59) U/L 27 Alkaline Phosphatase (46-116) U/L 125 H NT-Pro-B Natriuret Pep (<300) pg/mL 76 Total Protein (6.4-8.2) g/dL 7.7 Albumin (3.4-5.0) g/dL 3.9 Sign Out <Johana Aldrich NP - Last Filed: 11/04/22 17:44> Sign Out Data: Sign Out Comment: followup labs and reassess patient for disposition. Consider need for diuretic. Last updated by Trent Parry MD at 11/04/22 16:24
[2022-11-04 17:46] VITALS: BP 147/76; PULSE 76; TEMP 36.7; O2SAT 89
[2022-11-04 17:53] VITALS: O2SAT 91
== END 2022-11-04 17:56 | disposition home or self-care (01) ==
PROVIDERS: Student in an Organized Health Care Education/Training Program; Emergency Provider Nurse Practitioner Acute Care; PCP Nurse Practitioner
DX: R06.09 Other forms of dyspnea (principal); R60.9 Edema, unspecified
CPT/HCPCS: 36415; 80053; 85027; 99283; 83880

== ENCOUNTER 2022-12-02 11:49 | Outpatient (CLI) | payer MEDICARE, SELFPAY ==
[2022-12-02 12:33] LABS: TSH 0.47 uIU/mL (0.36-3.74)
== END 2022-12-02 11:50 | disposition home or self-care (01) ==
LOC: LBO 11:49
PROVIDERS: PCP Nurse Practitioner; Visit Provider Physician Assistant
DX: E03.9 Hypothyroidism, unspecified (principal)
CPT/HCPCS: 36415; 84443

== ENCOUNTER 2023-05-16 07:29 | Inpatient (IN) | payer MEDICARE, SELFPAY ==
[2023-05-16] VITALS (16 sets, daily range): BP systolic 128–162; BP diastolic 70–84; PULSE 64–108; RESP 3–20; TEMP 35.8–36.8; O2SAT 85–98
--- NOTE | 2023-05-16 07:30 | RT.EKG_ITS ---
APPROVED REPORT Exam: Resting ECG Reason for Exam: sudden difficulty breathing Patient Location: E HR:103 bpm ECG Measurements Heart Rate 103 AXIS MS 140 P 63 QRSd 84 QRS 30 QT 342 T 58 QTc 448 Conclusion Sinus tachycardia...rate> 99
[2023-05-16] MEDS: Albuterol/Ipratropium 3 ML UPD VIAL UPD ×3 (08:00→20:04)
--- NOTE | 2023-05-16 08:00 | W.ED.GENAD ---
Discharge Plan Disposition Patient Disposition: Admit to [facility] Condition: Serious Discharge Details Clinical Impression: Bilateral lower leg cellulitis, Pneumonia Admit Date/Time: 05/16/23 11:35 Admit Provider: Kvng Wilkinson Attending Provider: Kvng Wilkinson Primary Care Provider: Andrzej Kimbrough ED Provider: Trent Parry Discharge Data Discharge Date/Time-TO BE ENTERED AT DEPARTURE: 05/16/23 13:26 Medical Decision Making 805 --62-year-old female with history of COPD, recent prolonged hospitalization for hypoxic respiratory failure [place] [facility] oxygen, here with increasing shortness of breath, pulmonary congestion, increasing bilateral lower extremity edema with erythema. Patient is tachycardic and hypoxic on arrival. She has rales throughout as well as fine wheeze. She was given DuoNeb treatment by EMS prior to arrival. Concern for acute congestive heart failure versus acute pulmonary embolism versus COPD exacerbation versus pneumonia. Consider cellulitis of the lower extremities. EKG was reviewed and interpreted by me: Please report, sinus tachycardia 103 bpm, no STEMI. I will give additional DuoNeb treatment. Plan for diagnostic labs and CT imaging of the chest. 915 -- Nursing unable to obtain large-bore proximal peripheral IV for CT imaging. Right upper arm 18-gauge peripheral IV was placed by me under direct ultrasound guidance without complication. 1021 --CT of the chest was interpreted by radiology: 1. No evidence of acute pulmonary emboli. 2. There is infiltrate in the left lower lobe posterior basal segment. No pleural effusion. Mild infiltrate in the right middle lobe medial segment again noted. No pleural effusion 3. No intrathoracic adenopathy. Patient was recently hospitalized last month. I will cover for pneumonia with azithromycin, cefepime, vancomycin. Suspect cellulitis of the bilateral lower extremities. -- I spoke with hospitalist, discussed ED presentation and course, patient to be admitted. Care transition at time of admission. Lab Data Lab results reviewed: Yes I reviewed the patient's lab results. HPI General Mode of arrival: ambulatory. Date/Time Provider Initiated Documentation: 05/16/23 07:42. Limitations to Documentation: no limitations. Information obtained by: EMS. HPI Narrative: 62yo female with history of COPD, opioid use disorder on methadone, hypertension, hypothyroidism, recently hospitalized for hypoxic respiratory failure [place] [facility], discharged on 05/12/23, here today with chief complaint of shortness of breath. Patient notes increasing shortness of breath over the past 2 days. She states since discharge she has been using her nebulizer as prescribed as well as on nasal cannula oxygen 2 L to 3 L. She states she feels like she has trouble getting breath in and feels like her lungs are congested. She notes increasing bilateral lower extremity edema and redness over the past week. No associated fever. She does note intermittent cough and when she is able to produce sputum her breathing improves. Related Data Home Medications Medication Instructions Recorded Confirmed levothyroxine 200 mcg tablet 200 mcg PO DAILY 01/17/13 05/16/23 methadone 10 mg/5 mL oral solution 98 mg PO DAILY 01/17/13 05/16/23 mirtazapine 15 mg tablet 15 mg PO DAILY 01/17/13 05/16/23 mirtazapine 45 mg tablet 45 mg PO DAILY 01/17/13 05/16/23 zolpidem 5 mg tablet 5 mg PO HS 01/17/13 05/16/23 docusate sodium 100 mg capsule 200 mg PO DAILY 01/23/13 05/16/23 (Dulcolax Stool Softener (docusate)) simvastatin 10 mg tablet 10 mg PO DAILY 03/12/13 05/16/23 promethazine 25 mg rectal 25 mg MS PRN 03/15/14 05/16/23 suppository (Phenadoz) lorazepam 1 mg tablet 1 mg PO Q6H PRN PRN #14 tabs 11/05/16 05/16/23 dexlansoprazole 60 mg 1 tab PO DAILY 03/17/18 05/16/23 capsule,biphase delayed release (Dexilant) albuterol sulfate 90 mcg/actuation 2 puff inhalation QID PRN #8.5 08/29/22 05/16/23 aerosol inhaler grams budesonide-formoterol HFA 160 2 puff inhalation BID #0 grams 08/29/22 05/16/23 mcg-4.5 mcg/actuation aerosol inhaler (Symbicort) diltiazem HCl 30 mg tablet 30 mg PO Q8H 05/17/23 05/17/23 furosemide 20 mg tablet (Lasix) 20 mg PO BID #60 tabs 05/25/23 potassium chloride 20 mEq/15 mL 20 meq (15 mL) PO DAILY #450 mL 05/25/23 oral liquid prednisolone sodium phosphate 15 See Rx Instructions .Route 05/25/23 mg/5 mL (3 mg/mL) oral solution .COMPLEX #237 mL sennosides 8.6 mg tablet (Senokot) 8.6 mg PO HS #30 tabs 05/25/23 spironolactone 25 mg tablet 25 mg PO DAILY #30 tabs 05/25/23 tiotropium bromide 18 mcg capsule 1 cap inhalation DAILY #30 05/25/23 with inhalation device (Spiriva inhalations with HandiHaler) Previous Rx's Medication Instructions Recorded lorazepam 1 mg tablet 1 mg PO Q6H PRN PRN #14 tabs 11/05/16 albuterol sulfate 90 mcg/actuation 2 puff inhalation QID PRN #8.5 08/29/22 aerosol inhaler grams budesonide-formoterol HFA 160 2 puff inhalation BID #0 grams 08/29/22 mcg-4.5 mcg/actuation aerosol inhaler (Symbicort) furosemide 20 mg tablet (Lasix) 20 mg PO BID #60 tabs 05/25/23 potassium chloride 20 mEq/15 mL 20 meq (15 mL) PO DAILY #450 mL 05/25/23 oral liquid prednisolone sodium phosphate 15 See Rx Instructions .Route 05/25/23 mg/5 mL (3 mg/mL) oral solution .COMPLEX #237 mL sennosides 8.6 mg tablet (Senokot) 8.6 mg PO HS #30 tabs 05/25/23 spironolactone 25 mg tablet 25 mg PO DAILY #30 tabs 05/25/23 tiotropium bromide 18 mcg capsule 1 cap inhalation DAILY #30 05/25/23 with inhalation device (Spiriva inhalations with HandiHaler) Allergies Allergy/AdvReac Type Severity Reaction Status Date / Time No Known Allergies Allergy Unverified 05/16/23 10:23 General Stated Complaint: RespSymp PAULINE: 3 Review of Systems All systems reviewed & are unremarkable except as noted in HPI and below Constitutional Constitutional: Reports fatigue, Denies fever(s) and Reports weakness Cardiovascular Cardiovascular: Denies chest pain Respiratory Respiratory: Reports as per HPI Neurologic Neurologic: Reports weakness Endocrine Endocrine: Reports fatigue PFSH All Active Problems (Updated 05/26/23 @ 00:04 by BKG DAEMON) Bilateral leg edema (Acute) Constipation (Acute) Esophageal abnormality (Acute) Opioid use disorder, severe, on maintenance therapy (Chronic) GERD (gastroesophageal reflux disease) (Chronic) Hypothyroid (Chronic) Anxiety (Chronic 03/27/14) COPD (chronic obstructive pulmonary disease) (Chronic) Recurrent aspiration pneumonia (Acute) Bronchitis (Acute) Distal radius fracture (Acute) Medical History Abnormal auditory perception (03/29/14) Trouble in sleeping Depression History of drug abuse Irregular heart rhythm Hypertension Surgical History History of thyroidectomy Social History Smoking/Tobacco Use Status: Former Tobacco Use Quit Date: 06/13/99 Smoking risk assessment performed?: Yes Alcohol Intake: never Drug use: Current Sobriety Substance use type: former substance user Housing: house Current gender identity: female Do you feel safe at home: Yes Do you feel safe in your relationship?: Yes Exam Const General: cooperative Nutritional Appearance: obese HENMT Mouth: moist mucous membranes Eyes Conjunctivae: normal conjunctivae Sclera: normal sclerae Neck Neck: trachea midline and supple Resp Effort & Inspection: normal respiratory effort Auscultation: clear to auscultation bilaterally, rales bilaterally, no rhonchi and wheezes Cardio Rate: tachycardic Rhythm: regular rhythm GI Palpation: soft, not firm, no guarding, no masses, not rigid and nontender Skin General skin exam: erythema (Bilateral lower legs) Neuro General: patient alert, patient awake and tone normal Extrem General: edema Laterality: bilateral (Up to distal thigh) Psych Appearance: grossly normal Mental Status: mental status grossly normal Course Vital Signs Vital signs: Vital Signs Temperature 36.6 C 05/16/23 07:28 Pulse 108 H 05/16/23 07:28 Respiratory Rate 20 05/16/23 07:28 Pulse Oximetry 91 L 05/16/23 07:28 Temperature 36.6 C 05/16/23 07:35 Temperature Source Temporal Artery Scan 05/16/23 07:35 Pulse 108 H 05/16/23 07:35 Respiratory Rate 20 05/16/23 07:35 Respiratory Effort Short of Breath 05/16/23 07:35 Respiratory Depth Normal 05/16/23 07:35 Blood Pressure 152/70 H 05/16/23 07:35 Pulse Oximetry 94 05/16/23 07:35 Oxygen Delivery Method Nasal Cannula 05/16/23 07:35 Oxygen Flow Rate 3 05/16/23 07:35 Pain Level 0 05/16/23 07:35 Procedures EJ/Peripheral Line Arm R: Time Out Performed: Yes Skin Cleansed in Sterile Fashion: Yes Size (gauge): 18 IV Secured and Dressing Applied: Yes Patient Tolerated Procedure: well Additional Comments: Ultrasound utilized for placement
[2023-05-16 08:26] LABS: Abs Immature Grans 0.03 10^3/uL (0.0-0.06); Absolute Basophil Count 0.05 10^3/uL (0.0-0.2); Absolute Eosinophil Count 0.27 10^3/uL (0.0-0.7); Absolute Lymphocyte Count 1.36 10^3/uL (1.2-3.4); Absolute Monocyte Count 0.41 10^3/uL (0.1-0.8); Absolute Neutrophil Count 5.09 10^3/uL (1.2-6.7); Basophils % 0.7; Eosinophils % 3.7; HCT 39.7 % (36.0-46.0); Immature Grans % 0.4; Lymphocytes % 18.9; MCH 26.8 pg (27.0-33.0); MCHC 30.2 % (32.0-36.0); MCV 89 fL (80-95); MPV 8.7 fL (8.0-11.0); Monocytes % 5.7; Neutrophils % 70.6; Platelet Count 271 10^3/uL (130-400); RBC 4.47 10^6/uL (3.93-5.22); RDW 15.3 % (11.7-14.6); RDW-SD 49.8 fL; WBC 7.21 10^3/uL (4.4-10.8)
[2023-05-16 08:53] LABS: ALT 28 U/L (14-59); AST 18 U/L (15-37); Albumin 3.4 g/dL (3.4-5.0); Alkaline Phosphatase 104 U/L (46-116); Anion Gap 6.8 mmol/L (3-11); BUN 9 mg/dL (7-18); Bilirubin, Total 0.3 mg/dL (0.2-1.0); CO2 32.2 mmol/L (21.0-32.0); CREATININE 0.9 mg/dL (0.55-1.02); Chloride 103 mmol/L (98-107); Estimated GFR 71.39 (mL/min/1.73m2); Glucose 122 mg/dL (74-106); NT-proBNP 29 pg/mL (<300); Sodium 142 mmol/L (136-145); TSH (W/Ref FT4) 0.63 uIU/mL (0.36-3.74); Total Protein 7.2 g/dL (6.4-8.2); Troponin I < 50 ng/L (<or=60)
[2023-05-16] MEDS: Normal Saline Flush 10 ML SYR IVP (09:08)
[2023-05-16] MEDS: Normal Saline - Diluent 50 ML VIAL IJ (09:09)
[2023-05-16 09:17] LABS: COVID-19 PCR Negative (Negative); Influenza A PCR Negative (Negative); Influenza B PCR Negative (Negative); RSV PCR Negative (Negative); Source Nasopharynx
[2023-05-16] MEDS: Omnipaque 350 MG/ML 500 ML BTL-Imaging package 100 ML IJ (09:30)
--- NOTE | 2023-05-16 09:38 | DI.CT_ITS ---
Exam(s) CT CHEST PE CTA EXAM: CT CHEST PE CTA CLINICAL HISTORY: shortness of breath. TECHNIQUE: Imaging Protocol: CT angiography of the chest was performed using pulmonary embolus magdiel col. Multi planar reconstructions were performed. CONTRAST MATERIAL: Intravenous: Omnipaque 350 Contrast volume: 100 cc COMPARISON: CT CT CHEST W from 09/03/2022 FINDINGS: CHEST: PULMONARY ARTERIES: There are no intraluminal filling defects to suggest acute pulmonary emboli. LUNGS: There is area of infiltrate in the left lower lobe posterior basal segment not associated with pleural effusion. Remainder of the left lung is clear. There is also mild infiltrate evident in th e medial segment of the right middle lobe. This was previously present 09/03/2022. Remainder of the right lung is clear. No pleural effusions on either side.. MEDIASTINUM: There is no hilar nor mediastinal adenopathy. CARDIAC: Heart size is upper normal. There is no pericardial effusion.Caliber of the thoracic aorta is within normal limits. No evidence of aortic dissection. There is no significant shift of the inte rventricular septum. PARTIALLY VISUALIZED UPPERMOST ABDOMEN: Prior cholecystectomy. No adrenal masses. OSSEOUS: No significant osseous lesions.. IMPRESSION: 1. No evidence of acute pulmonary emboli. 2. There is infiltrate in the left lower lobe posterior basal segment. No pleural effusion. Mild in filtrate in the right middle lobe medial segment again noted. No pleural effusion 3. No intrathoracic adenopathy. Called by myself to ER position RADIATION DOSE DELIVERED: Total DLP DATA REPOSITORY: All CT scans at this facility are submitted to the National Radiology Data Registry (NRDR) Dose Index Registry (DIR) with the [employer] (A[employer]). RADIATION OPTIMIZATION: All CT scans at this facility use at least one of these dose optimization te chniques: automated exposure control; mA and/or kV adjustment per patient size (includes targeted exa ms where dose is matched to clinical indication); or iterative reconstruction.
[2023-05-16] MEDS: CEFEPIME 2 GM in Normal Saline 100 ML IVPB ×2 (10:39→17:22)
[2023-05-16] MEDS: VANCOMYCIN/WATER (PEG) 1.25 GM/250 ML BAG IV ×2 (10:50→12:22)
[2023-05-16] MEDS: AZITHROMYCIN 500 MG in Normal Saline 250 ML 250 MG IVPB (11:21)
--- NOTE | 2023-05-16 11:43 | HPE_ITS ---
Date of service: 05/16/23 Time of Service: 11:43 Assessment and Plan Assessment and plan (1) Pneumonia: Status: Acute Assessment and plan: Admitted to the medical surgical unit inpatient for healthcare associated pneumonia continue vancomycin cefepime and azithromycin day 1. Scheduled DuoNebs with albuterol as needed Acapella incentive spirometer Chronically O2 dependent on 2 L nasal cannula and on that is maintaining sats in the mid to high 90s Add Mucinex (2) Bilateral lower leg cellulitis: Status: Acute Assessment and plan: Has been started on cefepime and vancomycin for healthcare associated pneumonia. Elevate legs is much as possible throughout the day to help reduce swelling Will add inflammatory markers (3) Hypothyroid: Status: Chronic Assessment and plan: Stable continue Synthroid TSH 0.63 today (4) GERD (gastroesophageal reflux disease): Status: Chronic Assessment and plan: Stable continue therapy while hospitalized (5) Opioid use disorder, severe, on maintenance therapy: Status: Acute Assessment and plan: Stable continue daily methadone (6) On deep vein thrombosis (DVT) prophylaxis: Status: Acute (7) Discharge planning issues: Status: Acute Assessment and plan: Anticipate discharged home in medically stable case management will be following for discharge needs History of Present Illness History of Present Illness Chief Complaint: shortness of breath Narrative: This is a morbidly obese female with multiple chronic comorbidities oxygen dependent at home recent hospitalization at [facility] who presented to the emergency department with complaints of increased shortness of breath. She had been discharged on 10/10 fast on a 6 steroid taper which she completed last week. She was also taking scheduled nebulizers every 4 hours. She states that over the past 3 days her chest congestion cough and shortness of breath have increased again. She denies fever. Workup in the emergency department does show pneumonia by CT imaging. PE ruled out she was started on broad-spectrum antibiotics to cover for HCAP. Also noted on physical exam with bilateral lower extremity erythema she states that she was wearing Tubigrip's to help with her chronic edema and that she had not remove them for several days when they removed them in the emergency department she was noted to have a erythema. This should be covered by chosen antibiotics. Hospitalist service requested for inpatient admission. Review of Systems All systems reviewed & are unremarkable except as noted in HPI and below PFSH All Active Problems (Updated 05/16/23 @ 11:48 by Johana Aldrich NP) Discharge planning issues (Acute) On deep vein thrombosis (DVT) prophylaxis (Acute) Opioid use disorder, severe, on maintenance therapy (Acute) GERD (gastroesophageal reflux disease) (Chronic) Hypothyroid (Chronic) Pneumonia (Acute) Bilateral lower leg cellulitis (Acute) Anxiety (Chronic 03/27/14) COPD (chronic obstructive pulmonary disease) (Chronic) Recurrent aspiration pneumonia (Acute) Bronchitis (Acute) Distal radius fracture (Acute) Medical History Abnormal auditory perception (03/29/14) Opioid use disorder, severe, on maintenance therapy Trouble in sleeping Depression History of drug abuse Irregular heart rhythm Hypothyroid GERD (gastroesophageal reflux disease) Hypertension Surgical History History of thyroidectomy Social History Smoking/Tobacco Use Status: Former Tobacco Use Quit Date: 06/13/99 Smoking risk assessment performed?: Yes Alcohol Intake: never Drug use: Current Sobriety Substance use type: former substance user Housing: house Current gender identity: female Do you feel safe at home: Yes Do you feel safe in your relationship?: Yes Meds Allergies and Home Medications Allergies Allergy/AdvReac Type Severity Reaction Status Date / Time No Known Allergies Allergy Unverified 05/16/23 10:23 Home Medications Medication Instructions Recorded Confirmed Type levothyroxine 200 mcg tablet 200 mcg PO DAILY 01/17/13 05/16/23 History methadone 10 mg/5 mL oral solution 98 mg PO DAILY 01/17/13 05/16/23 History mirtazapine 15 mg tablet 15 mg PO DAILY 01/17/13 05/16/23 History mirtazapine 45 mg tablet 45 mg PO DAILY 01/17/13 05/16/23 History zolpidem 5 mg tablet 5 mg PO HS 01/17/13 05/16/23 History docusate sodium 100 mg capsule 200 mg PO DAILY 01/23/13 05/16/23 History (Dulcolax Stool Softener (docusate)) simvastatin 10 mg tablet 10 mg PO DAILY 03/12/13 05/16/23 History promethazine 25 mg rectal 25 mg [place] PRN 03/15/14 05/16/23 History suppository (Phenadoz) lorazepam 1 mg tablet 1 mg PO Q6H PRN PRN #14 tabs 11/05/16 05/16/23 Rx dexlansoprazole 60 mg 1 tab PO DAILY 03/17/18 05/16/23 History capsule,biphase delayed release (Dexilant) lisinopril 2.5 mg tablet 1 tab PO DAILY 03/17/18 05/16/23 History albuterol sulfate 90 mcg/actuation 2 puff inhalation QID PRN #8.5 08/29/22 05/16/23 Rx aerosol inhaler grams budesonide-formoterol HFA 160 2 puff inhalation BID #0 grams 08/29/22 05/16/23 Rx mcg-4.5 mcg/actuation aerosol inhaler (Symbicort) diltiazem HCl 180 mg capsule,24 180 mg PO DAILY 05/16/23 05/16/23 History hr,extended release Exam Const General: cooperative Nutritional Appearance: obese HENMT Mouth: moist mucous membranes Eyes Conjunctivae: normal conjunctivae Sclera: normal sclerae Neck Neck: trachea midline and supple Resp Effort & Inspection: normal respiratory effort (At rest does have shortness of breath and tachypnea with activity) Auscultation: clear to auscultation bilaterally, rales, rhonchi (scattered) and wheezes (And audible with activity) expiratory wheezes and inspiratory wheezes Cardio Rate: tachycardic Rhythm: regular rhythm GI Palpation: soft, not firm, no guarding, no masses, not rigid and nontender Skin General skin exam: erythema (Bilateral lower legs) Neuro General: patient alert, patient awake and tone normal Extrem General: edema Laterality: bilateral (Up to distal thigh) Psych Appearance: grossly normal Mental Status: mental status grossly normal Results Labs 05/16/23 08:15 05/16/23 08:15 Labs: Laboratory Results - last 24 hr 05/16/23 05/16/23 05/16/23 08:15 08:15 08:30 WBC 7.21 RBC 4.47 Hgb 12.0 Hct 39.7 MCV 89 MCH 26.8 L MCHC 30.2 L RDW 15.3 H Plt Count 271 MPV 8.7 Immature Gran % 0.4 Neutrophils % 70.6 Lymphocytes % 18.9 Monocytes % 5.7 Eosinophils % 3.7 Basophils % 0.7 Nucleated RBC % 0.0 Absolute Neutrophils 5.09 Absolute Lymphocytes 1.36 Absolute Monocytes 0.41 Absolute Eosinophils 0.27 Absolute Basophils 0.05 Sodium 142 Potassium 4.0 Chloride 103 Carbon Dioxide 32.2 H Anion Gap 6.8 BUN 9 Creatinine 0.9 Est GFR (CKD-EPI 2020) 71.39 Glucose 122 H Calcium 9.0 Total Bilirubin 0.3 AST 18 ALT 28 Alkaline Phosphatase 104 Troponin I < 50 NT-Pro-B Natriuret Pep 29 Cancelled Total Protein 7.2 Albumin 3.4 TSH 0.63 COVID-19 Source Nasopharynx SARS-CoV-2 (PCR) Negative Influenza Type A (PCR) Negative Influenza Type B (PCR) Negative RSV (PCR) Negative Last Vital Signs Temp 36.6 C 05/16/23 07:35 Pulse 108 H 05/16/23 07:35 Resp 20 05/16/23 08:00 BP 152/70 H 05/16/23 07:35 Pulse Ox 92 05/16/23 08:00 Time Spent Time spent with Patient: 40-54 minutes Time was spent: preparing to see the patient(eg.review tests), obtaining and/or reviewing separately otained hiistory, ordering medications,tests, procedures, indepentently interpreting results and counseling the patient
[2023-05-16] MEDS: Methadone Liquid 10 MG/ML 98 MG PO (11:56)
[2023-05-16 12:14] LABS: Troponin I < 50 ng/L (<or=60)
[2023-05-16 17:01] LABS: Lab Add On Test DONE
[2023-05-16 17:06] LABS: ESR 21 mm/hr (0-30)
[2023-05-16 17:23] LABS: Vancomycin, Peak 24.6 ug/mL (25.0-40.0)
[2023-05-16 17:42] LABS: C-Reactive Protein 0.52 mg/dL (0.0-0.3)
[2023-05-16] MEDS: Budesonide/Formoterol 160/4.5 6 GM 60 PUFF INH IH (19:49)
[2023-05-16 20:47] LABS: Vancomycin, Trough 17.6 ug/mL (10.0-20.0)
[2023-05-16] MEDS: Simvastatin 10 MG TAB PO (20:57)
[2023-05-16] MEDS: guaiFENesin 600 MG TABCR PO (20:57)
[2023-05-16] MEDS: Mirtazapine 15 MG TAB 60 MG PO (20:59)
[2023-05-16] MEDS: Enoxaparin 40 MG/0.4 ML SYR SC (20:59)
[2023-05-16] MEDS: VANCOMYCIN 1,500 MG in Normal Saline 500 ML 333.333 MG IVPB (23:05)
[2023-05-16] MEDS: Albuterol 2.5 MG/3 ML INH SOLN VIAL UPD (23:21)
[2023-05-17] VITALS (11 sets, daily range): BP systolic 120–144; BP diastolic 70–80; PULSE 79–101; RESP 5–20; TEMP 35.4–36.7; O2SAT 90–97
[2023-05-17] MEDS: CEFEPIME 2 GM in Normal Saline 100 ML IVPB ×3 (02:16→21:05)
[2023-05-17] MEDS: Levothyroxine 200 MCG TAB PO (06:04)
[2023-05-17] MEDS: Albuterol 2.5 MG/3 ML INH SOLN VIAL UPD (06:29)
[2023-05-17 07:04] LABS: Abs Immature Grans 0.02 10^3/uL (0.0-0.06); Absolute Basophil Count 0.05 10^3/uL (0.0-0.2); Absolute Eosinophil Count 0.27 10^3/uL (0.0-0.7); Absolute Lymphocyte Count 1.63 10^3/uL (1.2-3.4); Absolute Monocyte Count 0.48 10^3/uL (0.1-0.8); Absolute Neutrophil Count 3.91 10^3/uL (1.2-6.7); Basophils % 0.8; Eosinophils % 4.2; HCT 37.3 % (36.0-46.0); HGB 11.4 g/dL (11.2-15.7); Immature Grans % 0.3; Lymphocytes % 25.6; MCH 27.2 pg (27.0-33.0); MCHC 30.6 % (32.0-36.0); MCV 89 fL (80-95); Monocytes % 7.5; Neutrophils % 61.6; RBC 4.19 10^6/uL (3.93-5.22); RDW 15.5 % (11.7-14.6); RDW-SD 50.2 fL; WBC 6.36 10^3/uL (4.4-10.8)
[2023-05-17 07:19] LABS: Diff Comment Diff Reviewed; RBC Morphology Normal
[2023-05-17] MEDS: Albuterol/Ipratropium 3 ML UPD VIAL UPD ×4 (07:34→19:25)
[2023-05-17] MEDS: Budesonide/Formoterol 160/4.5 6 GM 60 PUFF INH IH ×2 (07:34→19:26)
[2023-05-17 07:43] LABS: ALT 23 U/L (14-59); AST 16 U/L (15-37); Albumin 2.9 g/dL (3.4-5.0); Alkaline Phosphatase 94 U/L (46-116); Anion Gap 7.6 mmol/L (3-11); BUN 8 mg/dL (7-18); Bilirubin, Total 0.4 mg/dL (0.2-1.0); CO2 28.4 mmol/L (21.0-32.0); CREATININE 0.8 mg/dL (0.55-1.02); Calcium 8.8 mg/dL (8.5-10.1); Chloride 106 mmol/L (98-107); Estimated GFR 82.23 (mL/min/1.73m2); Glucose 91 mg/dL (74-106); Sodium 142 mmol/L (136-145); Total Protein 6.3 g/dL (6.4-8.2)
[2023-05-17] MEDS: Enoxaparin 40 MG/0.4 ML SYR SC ×2 (08:39→21:06)
[2023-05-17] MEDS: Docusate Sodium 100 MG CAP 200 MG PO (08:41)
[2023-05-17] MEDS: Methadone Liquid 10 MG/ML 98 MG PO (08:42)
[2023-05-17] MEDS: Lisinopril 2.5 MG TAB PO (08:42)
[2023-05-17] MEDS: AZITHROMYCIN 250 MG in Normal Saline 250 ML IVPB (09:00)
[2023-05-17 09:12] LABS: Lab Add On Test DONE
[2023-05-17 10:16] LABS: Procalcitonin < 0.1 ng/mL
[2023-05-17] MEDS: VANCOMYCIN/WATER (PEG) 1.5 GM/300 ML BAG IVPB (10:58)
--- NOTE | 2023-05-17 11:04 | INITIAL_ITS ---
Date of service: 05/17/23 Time of Service: 11:04 Care Management Initial Assmt Initial Assessment REASON FOR HOSPITALIZATION:: Pneumonia, HCAP PREVIOUS FUNCTIONAL STATUS/SOCIAL/FAMILY SUPPORTS:: Frieda lives in an apartment in [place] with her s/o, Murtaza. She is independent at baseline in the community. Has patient been provided with info about the portal/API?: Yes Did the patient sign up for the portal?: No CODE STATUS:: Full Code INSURANCE COVERAGE / FINANCIAL ISSUES:: [facility] PRIMARY CARE PHYSICIAN:: Andrzej Kimbrough POTENTIAL DISCHARGE NEEDS:: Evaluations for further needs, follow up appointments. PATIENT/FAMILY EDUCATION NEEDS:: Review discharge instructions, discuss Ask Me Three ANTICIPATED BARRIERS TO DISCHARGE:: None identified. TRANSPORTATION:: Via private vehicle with family. PLAN:: Frieda will return home when ready per MD. She will follow up with PCP and plan of care as described. CM continues to follow. PFSH All Active Problems (Updated 05/18/23 @ 11:08 by Janett Pitts MD) Aspiration into airway (Acute) Chest pain (Acute) Acute on chronic respiratory failure with hypoxemia (Acute) Discharge planning issues (Acute) On deep vein thrombosis (DVT) prophylaxis (Acute) Opioid use disorder, severe, on maintenance therapy (Chronic) GERD (gastroesophageal reflux disease) (Chronic) Hypothyroid (Chronic) Pneumonia (Acute) Bilateral lower leg cellulitis (Acute) Anxiety (Chronic 03/27/14) COPD (chronic obstructive pulmonary disease) (Chronic) Recurrent aspiration pneumonia (Acute) Bronchitis (Acute) Distal radius fracture (Acute) Medical History Abnormal auditory perception (03/29/14) Opioid use disorder, severe, on maintenance therapy Trouble in sleeping Depression History of drug abuse Irregular heart rhythm Hypothyroid GERD (gastroesophageal reflux disease) Hypertension Surgical History History of thyroidectomy Social History Smoking/Tobacco Use Status: Former Tobacco Use Quit Date: 06/13/99 Smoking risk assessment performed?: Yes Alcohol Intake: never Drug use: Current Sobriety Substance use type: former substance user Housing: house Current gender identity: female Do you feel safe at home: Yes Do you feel safe in your relationship?: Yes
--- NOTE | 2023-05-17 11:28 | PT.INIE ---
PT Notes Visit Reasons: pneumonia,HCAP Physical Therapy Inpatient Initial Evaluation Date: 05/17/2023 Referring Doctor: Patience Damian MD PT Orders: PT CONSULT: Limited ability Precautions: Fall. Standard. Activity as tolerated. Patient Profile/Admitting Diagnosis: Jody is a 62-year-old female who presented to the ED on 05/16/2023 due to worsening cough, shortness of breath, and bilateral lower extremity redness. Patient is diagnosed with PNA, B LE cellulitis, hypothyroidism, GERD, and opiod use disorder. PMHX: All Active Problems (Updated 05/16/23 @ 11:48 by Johana Aldrich NP) Discharge planning issues (Acute) On deep vein thrombosis (DVT) prophylaxis (Acute) Opioid use disorder, severe, on maintenance therapy (Acute) GERD (gastroesophageal reflux disease) (Chronic) Hypothyroid (Chronic) Pneumonia (Acute) Bilateral lower leg cellulitis (Acute) Anxiety (Chronic 03/27/14) COPD (chronic obstructive pulmonary disease) (Chronic) Recurrent aspiration pneumonia (Acute) Bronchitis (Acute) Distal radius fracture (Acute) Medical History Abnormal auditory perception (03/29/14) Opioid use disorder, severe, on maintenance therapy Trouble in sleeping Depression History of drug abuse Irregular heart rhythm Hypothyroid GERD (gastroesophageal reflux disease) Hypertension Surgical History History of thyroidectomy Social History/Home Situation: Lives with significant other in a private home with out any entry steps. With all aspects of ADLs prior to admission. Equipment Owned/DME: None Subjective: Reports shortness of breath with the most minimal effort. Needed only 2 L at rest and 3 L with walking at home prior to admission. Denies headache, chest pain, and lightheadedness throughout. Objective: General Observation: Seated on bedside chair. Oxygen supplementation via NC at 1 L/min. Mental Status: Alert and oriented as to person, place, time, and purpose. Able to pay attention, focus, and respond appropriately. Pain: Denies Vital Signs: Saturating at 85% on 5 L at rest, resaturated back up to 89% with use of acapella and incentive spirometer. ROM: Right Upper Extremity: Shoulder Flexion WFL. Shoulder abduction WFL. Elbow flexion WFL. Wrist flexion WFL. Functional opening and closing of hand WFL. Left Upper Extremity: Shoulder Flexion WFL. Shoulder abduction WFL. Elbow flexion WFL. Wrist flexion WFL. Functional opening and closing of hand WFL. Right Lower Extremity: Hip flexion WFL. Hip abduction WFL. Knee flexion WFL. Ankle dorsiflexion WFL. Ankle plantarflexion WFL. Left Lower Extremity: Hip flexion WFL. Hip abduction WFL. Knee flexion WFL. Ankle dorsiflexion WFL. Ankle plantarflexion WFL. Strength: Right Upper Extremity: Shoulder flexors 4/5. Shoulder abductors 5/5. Elbow flexors 5/5. Elbow extensors 5/5. Strategic Partner Development Manager strong. Left Upper Extremity: Shoulder flexors 4/5. Shoulder abductors 5/5. Elbow flexors 5/5. Elbow extensors 5/5. Strategic Partner Development Manager strong. Right Lower Extremity: Hip flexors 4/5. Hip abductors 5/5. Knee flexors 5/5. Knee extensors 4/5. Ankle dorsiflexors 4/5. Ankle plantarflexors 5/5. Left Lower Extremity: Hip flexors 4/5. Hip abductors 5/5. Knee flexors 5/5. Knee extensors 4/5. Ankle dorsiflexors 4/5. Ankle plantarflexors 5/5. Bed Mobility/Transfers: Sit to stand supervision Stand to sit supervision Gait: Instructed patient with level surface ambulation of 15 feet + 15 feet requiring standby assist with patient oxygen level going down to 85% on 5 L, re-saturated back up to 90% on 5 L after seated rest. Gait pattern otherwise unremarkable. Balance: Static Sitting: Normal Dynamic Sitting: Normal Static Standing: Good Dynamic Standing: Good Special Tests: Mobility Limitations Standardized Measure [facility] AM-PAC 6 clicks Basic Mobility Inpatient Short Form: Raw Score: 24 CMS Score: 0% deficit Informed Consent/Education: Patient was instructed in purpose of PT consult and plan of care. Agreeable to proceed with established PT POC to achieve personal goals. ASSESSMENT: Patient remains considerably short of breath with the smallest of effort. Needing 5 L of oxygen at rest while on admission to stay above 88%. Will require services to allow for gradual return to independent mobility level without AD whle maintaining oxygen saturation above 88% on 3 L. Patient presents with clinical signs and symptoms consistent with current/admitting diagnoses that have resulted to mobility limitations, gait instability, generalized weakness, and overall ADL decline as demonstrated by the following impairment level findings: 1. Shortness of breath with desaturation to lower than 88% on 1 L with ambulation tasks Impairments are contributing to the following functional limitations: 1. Increased completion time for mobility ADL performance Patient is assessed as a 00326 low complexity based on the following: History: 62-year-old female with past medical history as indicated above Examination: Demonstrable impairment in strength, balance, and mobility level with underlying impairments and functional limitations as exhibited above Presentation: Evolving Decision Makin low complexity Goals: Goals X1 week 1. Independent gait on level surface with use of no AD for at least 500 feet without report of dyspnea with oxygen saturation above 88% on 3 L. 2. Patient will demonstrate 100% mastery of chest expansion exercises and B UE/LE exercises prior to discharge. Plan of Care/Treatment Plan: 1x/day, 7 days/week x 1 week. Plan of care has been reviewed with the SENIOR SSIS DEVELOPER providing the service under Physical Therapy direction. Initiate Physical Therapy intervention for pain management as needed, strengthening, bed mobility, transfers, gait, stairs, balance training, and use of assistive device. Suggested THERA EX: Chest expansion exercises with shoulder flexion and extension with DBE x 5 Chest expansion exercises with shoulder hor abd/add with DBE x 5 Slow sit to stand x 5 DISCHARGE RECOMMENDATIONS: [] Home with no services [] [X] Home with services. PT for home safety evaluation and energy conservation techniques. [] Home with outpatient PT [] [] SNF for continued rehabilitation [] [] [facility] [] [] SNF versus LTC based on ability to participate and progress [] TREATMENT CODE/TIME: 95069 x 20 minutes for 1 unit beginning at 11:04 AM. Thank you for the opportunity to participate in the care of this patient. Evon Bryant PT, DPT, CLT [facility] [place], [place]
[2023-05-17] MEDS: guaiFENesin 200 MG/10 ML CUP PO ×3 (12:52→21:06)
--- NOTE | 2023-05-17 14:05 | PT.INTREAT ---
Date of service: 05/17/23 Time of Service: 13:36 PT Notes Visit Reasons: pneumonia,HCAP Inpatient Physical Therapy Treatment Note [facility] Date: 05/17/23 PRECAUTIONS: Fall, standard, activity as tolerated. SUBJECTIVE: Patient reports that when she feels as though she can't take a deep breath, she gets panicky. Currently feels like she can't take a deep breath. OBJECTIVE: Patient sitting up in chair. 5L/min supplemental O2 via high-flow nasal cannula. Agreeable to therapy. ? PAIN: none reported. VITALS: monitored by nursing staff. ? ? ? BED MOBILITY/TRANSFERS? Rolling L/R: not assessed Supine-sit: not assessed ? Sit-supine: not assessed ? Sit-stand: not assessed ? Stand-sit: not assessed ? Bed-Chair: not assessed ? Chair-bed: not assessed ? Therapeutic Exercises ([id number]): Direct one-on-one instruction in therapeutic exercises to develop strength, endurance, range of motion and flexibility. ? Exercises: Access Code: [email or web address] URL: [email or web address] Date: 05/17/2023 Prepared by: Danelle Lipscomb Exercises - Seated Shoulder Flexion Full Range with pursed lip breathing x5 - Seated Shoulder Horizontal Abduction with pursed lip breathing x5 - Seated Open Book Thoracic Rotation with pursed lip breathing x5 - Seated Sidebending Arms Overhead - hold for 3-5 breaths each side Education provided re: the purpose of chest expansion exercises and how thoracic rotation and sidebending play roles in ribcage mobility. ASSESSMENT:? Patient tolerates therapy well, requests printout of exercises today which is provided at end of session. PLAN: Continue global strengthening per plan of care until patient is medically ready for discharge. TREATMENT CODE/TIME: 33 minutes beginning at 13:36
[2023-05-17] MEDS: dilTIAZem 30 MG TAB PO ×2 (14:35→21:06)
--- NOTE | 2023-05-17 14:57 | PHA.REVIEW2 ---
Pharmacy Admission Review Admission Clinical Review Admission Pharmacy Review: (Updated 05/16/23 @ 11:48 by Johana Aldrich NP) Discharge planning issues (Acute) On deep vein thrombosis (DVT) prophylaxis (Acute) Opioid use disorder, severe, on maintenance therapy (Acute) Pneumonia (Acute) Bilateral lower leg cellulitis (Acute) No Known Allergies Allergy (Unverified 05/16/23 10:23) Resuscitation Status Full Code Height 5 ft 4 in Weight 129.727 kg Pharmacy Admission Review Renal Dosing Renal Dosing: BUN 8 mg/dL (7-18) 05/17/23 06:10 Creatinine 0.8 mg/dL (0.55-1.02) 05/17/23 06:10 Medications needing adjustments: Reviewed (CrCl 76 mL/min) Anticoagulation Anticoagulation: Hgb 11.4 g/dL (11.2-15.7) 05/17/23 06:10 Hct 37.3 % (36.0-46.0) 05/17/23 06:10 Plt Count 10^3/uL (130-400) 05/17/23 06:10 Creatinine 0.8 mg/dL (0.55-1.02) 05/17/23 06:10 DVT Prophylaxis: Reviewed Medications: Enoxaparin (40mg BID (BMI 49.1)) Opiate Usage Evaluate Pain Scale/Pains Meds: Reviewed (Methadone daily (98mg daily, nursing confirmed with BRODERICK)) Scheduled Bowel Reg ordered if on Opiates?: Yes (Docusate) Relevant Labs Relevant Labs: ESR 21 mm/hr (0-30) 05/16/23 16:47 Sodium 142 mmol/L (136-145) 05/17/23 06:10 Potassium 4.0 mmol/L (3.5-5.1) 05/17/23 06:10 Chloride 106 mmol/L (98-107) 05/17/23 06:10 C-Reactive Protein 0.52 mg/dL (0.0-0.3) H 05/16/23 16:47 Electrolytes, C-Reactive P, ESR: Reviewed Cardiac Review Cardiac Review: Troponin I < 50 ng/L (<or=60) 05/16/23 11:15 NT-Pro-B Natriuret Pep 29 pg/mL (<300) 05/16/23 08:15 NT-Pro-B Natriuret Pep Cancelled 05/16/23 08:15 BP, HR, EF%: Reviewed (BP 144/76, HR WNL, Ox 90) QTc Review QTc: Reviewed (448 05/16/23) IV to PO Switch IV Medications: Reviewed Home Meds Home Med List reviewed: Reviewed Relevent Home Meds Not ordered & why?: Patient recently switched from ER diltiazem to IR but was not updated on their home med list. Updated home med list and reached out to provider who changed order to the IR diltiazem. Current Meds Current Medication Order Review: Reviewed Pharmacy Antibiotic Review Relevant Labs: Relevant Labs 05/17/23 05/16/23 09:37 16:47 C-Reactive Protein 0.52 H Procalcitonin < 0.1 Pharmacy Antibiotic Activity: C/S review and Reviewed, no change Comments: Vanco peak and trough were drawn per protocol in obese patients. Peak 24.6 1( yesterday) and trough 17.6 (2011 yesterday). Based on this information, continue Vancomcyin 1500mg q12h with predicted AUC of 496. Reached out to provider who will be putting in order for MRSA swab. Blood cultures currently showing no growth at 24 hours.
[2023-05-17 15:11] LABS: MRSA PCR Negative (Negative)
--- NOTE | 2023-05-17 17:19 | W.PM.PROGNOT ---
Date of Service Date of service: 05/17/23 Time of Service: 17:19 Assessment and Plan Assessment and plan (1) Pneumonia: Status: Acute Assessment and plan: Seems to be clinically better w/ O2 requirement improving. Obtain sputum culture and pneumonia studies. Continue empiric cefepime, azithromycin. MRSA nares is negative - d/c vancomycin. Blood cultures are negative. Add prednisone given wheezing. Continue symbicort, scheduled + prn nebs. Encourage pulmonary toilet. (2) Acute on chronic respiratory failure with hypoxemia: Status: Acute Assessment and plan: Now back to her baseline of 2L of O2 by [place]. As above We will need to perform exercise oximetry prior to discharge. (3) COPD (chronic obstructive pulmonary disease): Status: Chronic Assessment and plan: As above Qualifiers: COPD type: COPD with acute lower respiratory infection Qualified Code(s): J44.0 - Chronic obstructive pulmonary disease with (acute) lower respiratory infection (4) Bilateral lower leg cellulitis: Status: Acute Assessment and plan: D/c vancomycin. Continue cefepime, which would have MSSA coverage. I also think the patient would benefit from diuresis. I've asked the nurses to use a skin marker to outline the area of erythema for comparison. (5) Hypothyroid: Status: Chronic Assessment and plan: Continue current dose of levothyroxine. (6) GERD (gastroesophageal reflux disease): Status: Chronic Assessment and plan: Continue dexilant (7) Opioid use disorder, severe, on maintenance therapy: Status: Chronic Assessment and plan: Continue methadone (8) On deep vein thrombosis (DVT) prophylaxis: Status: Acute Assessment and plan: SC enoxaparin (9) Discharge planning issues: Status: Acute Assessment and plan: Full code Continues to require hospitalization Subjective Subjective Interval history since last seen: states that she still has been getting periodically short of breath. She does feel a little better. No dizziness, CP, cough is nonproductive. She did get nauseated earlier this afternoon, but this got better. Exam Narrative Exam Narrative: General: Obese female who is sitting up in a chair on 2L of O2 by [place], no dyspnea/tachypnea/cyanosis HEENT: EOMI, MMM Heart: RRR, no m/r/g Lungs: impressive expiratory wheezing B Abdomen: soft, nontender, nondistended Extremities: BLE edema in addition to lymphedema; distal BLE erythema, L>R Objective Last Vital Signs Temp 35.9 C L 05/17/23 15:11 Pulse 83 05/17/23 16:17 Resp 16 05/17/23 15:11 BP 144/76 H 05/17/23 15:11 Pulse Ox 95 05/17/23 16:17 Laboratory Results - last 24 hr 05/16/23 05/16/23 05/17/23 16:47 20:12 06:10 WBC 6.36 RBC 4.19 Hgb 11.4 Hct 37.3 MCV 89 MCH 27.2 MCHC 30.6 L RDW 15.5 H Plt Count MPV Immature Gran % 0.3 Neutrophils % 61.6 Lymphocytes % 25.6 Monocytes % 7.5 Eosinophils % 4.2 Basophils % 0.8 Nucleated RBC % 0.0 Absolute Neutrophils 3.91 Absolute Lymphocytes 1.63 Absolute Monocytes 0.48 Absolute Eosinophils 0.27 Absolute Basophils 0.05 RBC Morphology Normal Sodium 142 Potassium 4.0 Chloride 106 Carbon Dioxide 28.4 Anion Gap 7.6 BUN 8 Creatinine 0.8 Est GFR (CKD-EPI 2020) 82.23 Glucose 91 Calcium 8.8 Total Bilirubin 0.4 AST 16 ALT 23 Alkaline Phosphatase 94 C-Reactive Protein 0.52 H Total Protein 6.3 L Albumin 2.9 L Procalcitonin Vancomycin Peak 24.6 L Vancomycin Trough 17.6 MRSA (TEM-PCR) Add-On Test Request 05/17/23 05/17/23 05/17/23 09:11 09:37 13:35 WBC RBC Hgb Hct MCV MCH MCHC RDW Plt Count MPV Immature Gran % Neutrophils % Lymphocytes % Monocytes % Eosinophils % Basophils % Nucleated RBC % Absolute Neutrophils Absolute Lymphocytes Absolute Monocytes Absolute Eosinophils Absolute Basophils RBC Morphology Sodium Potassium Chloride Carbon Dioxide Anion Gap BUN Creatinine Est GFR (CKD-EPI 2020) Glucose Calcium Total Bilirubin AST ALT Alkaline Phosphatase C-Reactive Protein Total Protein Albumin Procalcitonin < 0.1 Vancomycin Peak Vancomycin Trough MRSA (TEM-PCR) Negative Add-On Test Request DONE Time Spent with Patient Time Spent with Patient: 35-49 minutes Time was spent: preparing to see the patient(eg.review tests), obtaining and/or reviewing separately otained hiistory, ordering medications,tests, procedures, referring, communicating with other health care director rn, indepentently interpreting results, counseling the patient and care coordination
[2023-05-17] MEDS: LORazepam 0.5 MG TAB PO (17:53)
[2023-05-17] MEDS: predniSONE 20 MG TAB 40 MG PO (17:53)
[2023-05-17] MEDS: Furosemide 20 MG/2 ML VIAL IVP (17:53)
[2023-05-17] MEDS: Ondansetron 4 MG/2 ML VIAL IVP (18:41)
[2023-05-17] MEDS: Normal Saline Flush 10 ML SYR IVP (18:42)
[2023-05-17] MEDS: Zolpidem 5 MG TAB PO (21:05)
[2023-05-17] MEDS: Mirtazapine 15 MG TAB 60 MG PO (21:05)
[2023-05-17] MEDS: Simvastatin 10 MG TAB PO (21:06)
[2023-05-18] VITALS (14 sets, daily range): BP systolic 126–147; BP diastolic 77–84; PULSE 56–100; RESP 2–20; TEMP 36–36.8; O2SAT 85–93
[2023-05-18] MEDS: dilTIAZem 30 MG TAB PO ×3 (05:16→20:44)
[2023-05-18] MEDS: CEFEPIME 2 GM in Normal Saline 100 ML IVPB ×3 (05:16→20:41)
[2023-05-18] MEDS: Levothyroxine 200 MCG TAB PO (05:16)
[2023-05-18] MEDS: guaiFENesin 200 MG/10 ML CUP PO ×3 (07:59→20:44)
[2023-05-18] MEDS: Docusate Sodium 100 MG CAP 200 MG PO (07:59)
[2023-05-18] MEDS: Lisinopril 2.5 MG TAB PO (07:59)
[2023-05-18] MEDS: predniSONE 20 MG TAB 40 MG PO (07:59)
[2023-05-18] MEDS: Enoxaparin 40 MG/0.4 ML SYR SC ×2 (07:59→20:40)
[2023-05-18] MEDS: Furosemide 20 MG/2 ML VIAL IVP ×2 (07:59→15:52)
[2023-05-18] MEDS: AZITHROMYCIN 250 MG in Normal Saline 250 ML IVPB (08:00)
[2023-05-18] MEDS: Albuterol/Ipratropium 3 ML UPD VIAL UPD ×4 (08:09→19:32)
[2023-05-18 08:17] LABS: Abs Immature Grans 0.04 10^3/uL (0.0-0.06); Absolute Basophil Count 0.04 10^3/uL (0.0-0.2); Absolute Eosinophil Count 0.02 10^3/uL (0.0-0.7); Absolute Lymphocyte Count 1.19 10^3/uL (1.2-3.4); Absolute Monocyte Count 0.38 10^3/uL (0.1-0.8); Absolute Neutrophil Count 5.69 10^3/uL (1.2-6.7); Basophils % 0.5; Eosinophils % 0.3; HCT 38.7 % (36.0-46.0); HGB 11.9 g/dL (11.2-15.7); Immature Grans % 0.5; Lymphocytes % 16.2; MCH 27.2 pg (27.0-33.0); MCHC 30.7 % (32.0-36.0); MCV 89 fL (80-95); MPV 9.4 fL (8.0-11.0); Monocytes % 5.2; Neutrophils % 77.3; Platelet Count 243 10^3/uL (130-400); RBC 4.37 10^6/uL (3.93-5.22); RDW 15.5 % (11.7-14.6); RDW-SD 50.3 fL; WBC 7.36 10^3/uL (4.4-10.8)
[2023-05-18] MEDS: Budesonide/Formoterol 160/4.5 6 GM 60 PUFF INH IH (08:17)
[2023-05-18 08:38] LABS: Anion Gap 8.8 mmol/L (3-11); BUN 8 mg/dL (7-18); CO2 32.2 mmol/L (21.0-32.0); CREATININE 0.8 mg/dL (0.55-1.02); Calcium 9.2 mg/dL (8.5-10.1); Chloride 104 mmol/L (98-107); Estimated GFR 82.23 (mL/min/1.73m2); Glucose 105 mg/dL (74-106); Potassium 3.7 mmol/L (3.5-5.1); Sodium 145 mmol/L (136-145)
[2023-05-18] MEDS: Methadone Liquid 10 MG/ML 98 MG PO (09:15)
[2023-05-18] MEDS: Dexlansoprazole 30 MG CAP 60 MG PO (09:15)
--- NOTE | 2023-05-18 09:45 | RT.EKG_ITS ---
APPROVED REPORT Exam: Resting ECG Reason for Exam: chest pain Patient Location: I HR:79 bpm ECG Measurements Heart Rate 79 AXIS ME 148 P 52 QRSd 90 QRS 8 QT 398 T 61 QTc 457 Conclusion Sinus rhythm...normal P axis, V-rate 50- 99 Normal Electrocardiogram
--- NOTE | 2023-05-18 09:54 | PGE_ITS ---
Date of Service Date of service: 05/18/23 Time of Service: 09:55 Assessment and Plan Assessment and plan (1) Chest pain: Status: Acute Assessment and plan: Placed on tele. Obtain serial troponins. EKG: HR 79, SR, no acute ischemia (2) Pneumonia: Status: Acute Assessment and plan: Still sounds rather wheezy and crackly. Continue empiric cefepime, azithromycin. MRSA nares is negative - no longer on vancomycin. Blood cultures are negative. Continue prednisone, symbicort, scheduled + prn nebs. Encourage pulmonary toilet. C/s pulmonology. (3) Acute on chronic respiratory failure with hypoxemia: Status: Acute Assessment and plan: O2 requirement increased again today. As above C/s pulmonology. We will need to perform exercise oximetry prior to discharge. (4) COPD (chronic obstructive pulmonary disease): Status: Chronic Assessment and plan: As above Qualifiers: COPD type: COPD with acute lower respiratory infection Qualified Co de(s): J44.0 - Chronic obstructive pulmonary disease with (acute) lower respiratory infection (5) Bilateral lower leg cellulitis: Status: Acute Assessment and plan: Improving on cefepime. Continue diuresis. I've asked the nurses to use a skin marker to outline the area of erythema for comparison. (6) Hypothyroid: Status: Chronic Assessment and plan: Continue current dose of levothyroxine. (7) GERD (gastroesophageal reflux disease): Status: Chronic Assessment and plan: Continue dexilant (8) Opioid use disorder, severe, on maintenance therapy: Status: Chronic Assessment and plan: Continue methadone (9) On deep vein thrombosis (DVT) prophylaxis: Status: Acute Assessment and plan: SC enoxaparin (10) Discharge planning issues: Status: Acute Assessment and plan: Full code Continues to require hospitalization Subjective Subjective Interval history since last seen: reports a left-sided sharp chest pain that started about 7 minutes ago at rest and resolved on its own. The patient did not notify the nurse and stated she prayed for it to go away. She gets these pains sometimes as an outpatient. Denies dizziness, states breathing is better. Still got short of breath this morning, but not as bad as yesterday. Denies n/v now, but was nauseated yesterday evening. Cough is now productive of cream-colored sputum. Exam Narrative Exam Narrative: General: Obese female who is sitting up in a chair on 4L of O2 by [place], no dyspnea/tachypnea/cyanosis, looks a little better HEENT: EOMI, MMM Heart: RRR, no m/r/g Lungs: impressive inspiratory and expiratory wheezing B Abdomen: soft, nontender, nondistended Extremities: BLE edema in addition to lymphedema; the edema is a little better. distal BLE erythema, L>R, receding from circumscribed line - improved from yesterday Objective Last Vital Signs Temp 36.0 C L 05/18/23 06:57 Pulse 83 05/18/23 08:24 Resp 16 05/18/23 08:09 BP 126/77 05/18/23 06:57 Pulse Ox 90 L 05/18/23 08:24 Laboratory Results - last 24 hr 05/17/23 05/17/23 05/18/23 09:37 13:35 07:00 WBC 7.36 RBC 4.37 Hgb 11.9 Hct 38.7 MCV 89 MCH 27.2 MCHC 30.7 L RDW 15.5 H Plt Count 243 MPV 9.4 Immature Gran % 0.5 Neutrophils % 77.3 Lymphocytes % 16.2 Monocytes % 5.2 Eosinophils % 0.3 Basophils % 0.5 Nucleated RBC % 0.0 Absolute Neutrophils 5.69 Absolute Lymphocytes 1.19 L Absolute Monocytes 0.38 Absolute Eosinophils 0.02 Absolute Basophils 0.04 Sodium 145 Potassium 3.7 Chloride 104 Carbon Dioxide 32.2 H Anion Gap 8.8 BUN 8 Creatinine 0.8 Est GFR (CKD-EPI 2020) 82.23 Glucose 105 Calcium 9.2 Magnesium 2.0 Procalcitonin < 0.1 MRSA (TEM-PCR) Negative Time Spent with Patient Time Spent with Patient: 35-49 minutes Time was spent: preparing to see the patient(eg.review tests), obtaining and/or reviewing separately otained hiistory, ordering medications,tests, procedures, referring, communicating with other health care management associate, indepentently interpreting results, counseling the patient and care coordination
--- NOTE | 2023-05-18 10:41 | PUCON_ITS ---
General Date Of Service Date of service: 05/18/23 Time of Service: 10:41 Reason for Consult: Pneumonia Assessment and Plan Assessment and plan (1) Acute on chronic respiratory failure with hypoxemia: Status: Acute (2) Aspiration into airway: Status: Acute (3) COPD (chronic obstructive pulmonary disease): Status: Chronic Assessment and plan: This is a 62 yo admitted for a pneumonia and cellulitis. I believe her initial hospitalization to [facility] was related to aspiration (which she has had previously). I think that her current issues are also related to aspiration. There is no white count and a negative procalcitonin. I do not think she needs antibiotics for her aspiration as she has been thoroughly treated at [facility] for this. I do think she should see [facility] since this continues to be an issue. She has not had the COPD diagnosis confirmed, but I would recommend changing the Symbicort to Stiolto given the increased pneumonia risk with ICS therapy. Possible COPD - change Symbicort to Stiolto - continue nebs QID - has pulm appt at [facility] 06/16/23 Aspiration - no antibiotics recommended for this - will defer to hospitalist to change since she is being treated for cellulitis as well. - [facility] therapy - prednisone taper: 40mg for 5 days, 40mg for 3 days, 30mg for 3 days, 20mg for 3 days, 10mg for 3 days, 5mg for 3 days Acute on chronic respiratory failure - O2 goal 88-92% - baseline is 2LPM at rest and 3LPM with exertion - ABG today with some CO2 retention but normal pH - chronic retention likely - portable CXR today with LLL infiltrate, no change from admission CT Qualifiers: COPD type: COPD with acute lower respiratory infection Qualified Code(s): J44.0 - Chronic obstructive pulmonary disease with (acute) lower respiratory infection History of Present Illness Narrative: This is a 62 yo with a 15 pack year smoking history who is admitted for pneumonia. She was recently admitted to [facility] for 11 days with respiratory failure and pneumonia. She has a history of obesity, GERD, prior IVDU, BLOUNT and COPD. Prior to her [facility] admission she had several days of progressive dyspnea and hypoxia. She required HFNC in the ED and underwent a CT scan which was consistent with aspiration. She was also positive for rhinovirus and enterovirus during this stay. She was cared for in the MICU given her high FiO2 and HFNC needs. She was treated with ceftriaxone and azithromycin. A CXR completed 04/08 found a LLL opacity concerning for collapse. She was given BiPAP at night and HFNC. She was discharged from [facility] with 2LPM at rest and 3LPM exertion. She has an upcoming pulmonary appointment (06/16) at [facility] already scheduled. She presented on 05/16/23 with increasing chest congestion and dyspnea. She has been receiving Symbicort, azithromycin, cefepime, guanfenesin and prednisone. She feels as though she is getting better slowly while in hospital. She is now just started to cough out secretions. Review of Systems All systems reviewed & are unremarkable except as noted in HPI and below PFSH All Active Problems (Updated 05/18/23 @ 11:08 by Janett Pitts MD) Aspiration into airway (Acute) Chest pain (Acute) Acute on chronic respiratory failure with hypoxemia (Acute) Discharge planning issues (Acute) On deep vein thrombosis (DVT) prophylaxis (Acute) Opioid use disorder, severe, on maintenance therapy (Chronic) GERD (gastroesophageal reflux disease) (Chronic) Hypothyroid (Chronic) Pneumonia (Acute) Bilateral lower leg cellulitis (Acute) Anxiety (Chronic 03/27/14) COPD (chronic obstructive pulmonary disease) (Chronic) Recurrent aspiration pneumonia (Acute) Bronchitis (Acute) Distal radius fracture (Acute) Medical History Abnormal auditory perception (03/29/14) Opioid use disorder, severe, on maintenance therapy Trouble in sleeping Depression History of drug abuse Irregular heart rhythm Hypothyroid GERD (gastroesophageal reflux disease) Hypertension Surgical History History of thyroidectomy Social History Smoking/Tobacco Use Status: Former Tobacco Use Quit Date: 06/13/99 Smoking risk assessment performed?: Yes Alcohol Intake: never Drug use: Current Sobriety Substance use type: former substance user Housing: house Current gender identity: female Do you feel safe at home: Yes Do you feel safe in your relationship?: Yes Visit Medication and Allergies Active Medications Generic Name Dose Route Start Last Admin Trade Name Freq PRN Reason Stop Dose Admin Albuterol Sulfate 2.5 mg 05/16/23 15:53 05/17/23 06:29 Albuterol 2.5 Mg/3 Ml Inh Soln Vial UPD 2.5 mg Q2H PRN PRN Administration Albuterol/Ipratropium 3 ml 05/16/23 16:00 05/18/23 08:09 Albuterol/Ipratropium 3 Ml Upd Vial UPD 3 ml QID EUGENIO Administration Budesonide/Formoterol Fumarate 2 puff 05/16/23 20:00 05/18/23 08:17 Budesonide/Formoterol 160/4.5 6 Gm 60 Puff Inh IH 2 puffs BID EUGENIO Administration Device 1 each 05/16/23 13:30 Inhaler, Assist Device MC DIRECTED EUGENIO Dexlansoprazole 60 mg 05/18/23 07:30 05/18/23 09:15 Dexlansoprazole 30 Mg Cap PO 60 mg DAILY@0730 EUGENIO Administration Diltiazem HCl 30 mg 05/17/23 14:00 05/18/23 05:16 Diltiazem 30 Mg Tab PO 30 mg Q8H EUGENIO Administration Docusate Sodium 200 mg 05/17/23 08:30 05/18/23 07:59 Docusate Sodium 100 Mg Cap PO 200 mg DAILY EUGENIO Administration Enoxaparin Sodium 40 mg 05/16/23 20:00 05/18/23 07:59 Enoxaparin 40 Mg/0.4 Ml Syr SC 40 mg BID EUGENIO Administration Furosemide 20 mg 05/18/23 08:00 05/18/23 07:59 Furosemide 20 Mg/2 Ml Vial IVP 20 mg BID@0800,1600 EUGENIO Administration Guaifenesin 200 mg 05/17/23 11:51 05/18/23 07:59 Guaifenesin 200 Mg/10 Ml Cup PO 200 mg Q4H PRN PRN Administration Azithromycin 250 mg/ Sodium 250 mls @ 250 mls/hr 05/17/23 08:30 05/18/23 08:00 Chloride IVPB 05/20/23 09:29 250 mls/hr DAILY EUGENIO Administration Cefepime HCl 2 gm/ Sodium 100 mls @ 200 mls/hr 05/17/23 20:00 05/18/23 05:16 Chloride IVPB 200 mls/hr Q8H EUGENIO Administration Levothyroxine Sodium 200 mcg 05/17/23 06:00 05/18/23 05:16 Levothyroxine 200 Mcg Tab PO 200 mcg DAILY@0600 EUGENIO Administration Lisinopril 2.5 mg 05/17/23 08:30 05/18/23 07:59 Lisinopril 2.5 Mg Tab PO 2.5 mg DAILY EUGENIO Administration Lorazepam 0.5 mg 05/16/23 14:43 05/17/23 17:53 Lorazepam 0.5 Mg Tab PO 0.5 mg BID PRN PRN Administration Methadone HCl 98 mg 05/17/23 08:30 05/18/23 09:15 Methadone Liquid 10 Mg/Ml PO 98 mg DAILY EUGENIO Administration Mirtazapine 60 mg 05/16/23 20:00 05/17/23 21:05 Mirtazapine 15 Mg Tab PO 60 mg QPM EUGENIO Administration Ondansetron HCl 4 mg 05/17/23 18:15 05/17/23 18:41 Ondansetron 4 Mg/2 Ml Vial IVP 4 mg Q6H PRN PRN Administration Prednisone 40 mg 05/18/23 08:30 05/18/23 07:59 Prednisone 20 Mg Tab PO 40 mg DAILY EUGENIO Administration Simvastatin 10 mg 05/16/23 20:00 05/17/23 21:06 Simvastatin 10 Mg Tab PO 10 mg QPM EUGENIO Administration Zolpidem Tartrate 5 mg 05/16/23 22:00 05/17/23 21:05 Zolpidem 5 Mg Tab PO 5 mg HS EUGENIO Administration Allergies No Known Allergies Allergy (Unverified 05/16/23 10:23) Exam Narrative Exam Narrative: Gen: NAD, normal respiratory effort, obese HENT: PERRL Chest: No respiratory distress, normal appearance of chest, scattered diffuse crackles Heart: regular rate and rhythym, no murmurs, rubs or gallops Abdomen: Non-distended, soft, non tender Extremities: No clubbing, + edema, cyanosis, rashes Neuro: AAOx3 , non focal Psych: cooperative, appropriate mental affect Results Last Vital Signs Temp 36.0 C L 05/18/23 06:57 Pulse 83 05/18/23 08:24 Resp 16 05/18/23 08:09 BP 126/77 05/18/23 06:57 Pulse Ox 90 L 05/18/23 08:24 Labs 05/18/23 07:00 05/18/23 07:00 Labs: Laboratory Results - last 24 hr 05/17/23 05/18/23 13:35 07:00 WBC 7.36 RBC 4.37 Hgb 11.9 Hct 38.7 MCV 89 MCH 27.2 MCHC 30.7 L RDW 15.5 H Plt Count 243 MPV 9.4 Immature Gran % 0.5 Neutrophils % 77.3 Lymphocytes % 16.2 Monocytes % 5.2 Eosinophils % 0.3 Basophils % 0.5 Nucleated RBC % 0.0 Absolute Neutrophils 5.69 Absolute Lymphocytes 1.19 L Absolute Monocytes 0.38 Absolute Eosinophils 0.02 Absolute Basophils 0.04 Sodium 145 Potassium 3.7 Chloride 104 Carbon Dioxide 32.2 H Anion Gap 8.8 BUN 8 Creatinine 0.8 Est GFR (CKD-EPI 2020) 82.23 Glucose 105 Calcium 9.2 Magnesium 2.0 MRSA (TEM-PCR) Negative
[2023-05-18 11:02] LABS: BE 9 mmol/L (-2-3); HCO3 34 mmol/L (22-26); pCO2 53 mmHg (35-45); pH 7.42 (7.35-7.45); pO2 49 mmHg (80-105); sO2 85 % (95-98); tCO2 31 mmol/L (23-27)
[2023-05-18 11:03] LABS: Troponin I < 50 ng/L (<or=60)
[2023-05-18 11:04] LABS: FIO2L 4 L; Site Left Radial
--- NOTE | 2023-05-18 11:08 | DI.RAD_ITS ---
Exam(s) XR PORTABLE CHEST AP EXAM: XR PORTABLE CHEST AP CLINICAL HISTORY: hypoxia. TECHNIQUE: 2D digital imaging was performed. COMPARISON: CR XR PORTABLE CHEST AP from 09/03/2022 FINDINGS: Single AP portable view. Heart size is upper normal. The mediastinum is not widened. Mild increased markings lung bases probably exaggerated by body habitus. Nevertheless cannot exclude mild infiltrates in the lung bases. No obvious pleural effusions. IMPRESSION: Lung base findings as above. Recommend nonportable PA and lateral views when clinically possible. DATA REPOSITORY: RADIATION DOSE DELIVERED:
--- NOTE | 2023-05-18 13:37 | PTTR_ITS ---
Date of service: 05/18/23 Time of Service: 11:45 PT Notes Visit Reasons: pneumonia,HCAP Inpatient Physical Therapy Treatment Note [facility] Date: 05/18/23 PRECAUTIONS: Fall, standard, activity as tolerated. SUBJECTIVE: Patient reports that she did the HEP last night as it was established yesterday. Had questions re: book openers, as image shows pt sidelying but we performed them seated. OBJECTIVE: sitting up in chair, agreeable to therapy, on 4L/min supplemental O2? PAIN: none reported VITALS: ? Pre-Treatment: SaO2 92% HR 102 bpm Mid-Treatment: SaO2 87%, HR 110 bpm ? Post-Treatment: SaO2 95%, HR 90 bpm ? ? BED MOBILITY/TRANSFERS? Rolling L/R: Not assessed Supine-sit: Not assessed ? Sit-supine: Not assessed ? Sit-stand: independent ? Stand-sit: independent ? Bed-Chair: independent ? Chair-bed: independent ? Therapeutic Exercises (70311h5): Direct one-on-one instruction in therapeutic exercises to develop strength, endurance, range of motion and flexibility. ? Exercises: * shoulder flexion full range with pursed lip breathing 2x5 * shoulder horizontal abduction with pursed lip breathing 2x5 * One arm overhead side bending with pursed lip breathing for 3-5 breaths, 2x each side * seated book openers with pursed lip breathing x10 each side * standing august x1 minute * standing hip abduction x10 Provided skilled instruction in proper exercise performance Provided skilled manual cues to facilitate proper muscle recruitment and/or form. ASSESSMENT:? Patient reports dyspnea at SaO2 87%. Feels like she cant catch her breath. PLAN: Continue global strengthening per plan of care until patient is medically cleared for discharge. TREATMENT CODE/TIME: 31 minutes beginning at 11:45
[2023-05-18 13:38] LABS: Troponin I < 50 ng/L (<or=60)
[2023-05-18] MEDS: LORazepam 0.5 MG TAB PO (13:38)
--- NOTE | 2023-05-18 14:30 | W.SPSTE ---
Date of service: 05/18/23 Time of Service: 14:30 Subjective Clinical (Bedside) Swallow Evaluation Speech Language Pathology Patient referred for Clinical Swallow Evaluation from Dr. Damian for concern of recurrent aspiration events leading to PNA and hypoxia. Precautions: Full code HPI: Pt is a 62 year old female admitted on 05/16/23 with pneumonia thought to be related to aspiration. She has had multiple similar hospitalizations this year, including 11 day admission recently at [facility] and earlier this spring here at [facility] after reportedly aspirating a pill. [facility] has evaluated patient multiple times in previous hospitalization, each time without major concern for aspiration due to oral-pharyngeal deficits, but with question of reflux aspiration. She participated in an MBSS on 09/06/2022 which indicated primarily esophageal dysphagia with narrowing at the GE junction leading to distal esphageal stasis of barium tablet and also resulting in reflux of liquid bolus as a result of decreased bolus flow into stomach at GE junction. This is consistent with patient's complaints in recent hospitalizations where she reportedly had difficulty swallowing a large pill and felt as though she had aspirated something as a result. She is at additional risk of pulmonary complications given COPD dx. Based on results of MBSS, [facility] had previously recommended GI consult for esophageal phase deficits. Predisposing dysphagia risk factors: GERD, COPD, history of head/neck surgery (complete thyroidectomy), Clinical signs of possible chronic dysphagia: recurrent aspiration/PNA, difficulty with dry solids and large pills Precipitating dysphagia risk factors / triggering event: hypoxemia Predisposing dysphagia risk factors: GERD, COPD, history of head/neck surgery (complete thyroidectomy) Clinical signs of possible chronic dysphagia: recent difficulty swallowing pills, possible aspiration event Precipitating dysphagia risk factors / triggering event: respiratory failure, hypoxemia. EXAMINATION: Oriented to self, situation, time.? Language: WFL Speech: WFL Respiratory: 4L O2 via NC, appears to tolerate well but reports recently checking her saturation, at 87% Oral-Peripheral: Partially edentulous with some poor dentition, very few molars. Reports dental pain. Oral mucosa appears mildly dry but otherwise without significant buildup. Cranial nerve exam: Largely unremarkable. no focal deficits. Volitional swallow is difficult to palpate for laryngeal movement through neck tissue but palpable with timely initiation via submental muscles. PO TRIALS Level 0 Thin liquids: Single and consecutive sips via straw Level 4 minced/moist: Puree Regular Solids x 4 bites (cracker Oral phase: Mildly prolonged mastication, patient reports dental pain No residue Pharyngeal phase: No s/sx aspiration/penetration. Pt denies sensation of pharyngeal or esophageal residue. Education: Provided to patient, MD, RN Topics Addressed:?anatomy/physiology of swallowing mechanism, overt s/sx to monitor for re: potential aspiration of food / liquids, recommendations for improved oral care, relationship between respiratory function changes and deglutition, and strict reflux precautions Outcome: Verbalized/demonstrated understanding Objective Assessment Patient appears with stable mild-moderate primarily esophageal dysphagia, very similar clinical presentation on exam today as compared with previous bedside evaluations. Continue to suspect reflux aspiration, with narrowing of GE junction, GERD, and ?esophgeal dysmotility possibly contributing. She does not appear at high risk of aspiration due to oral or pharyngeal phase deficits, though she does struggle with mastication due to poor dentition and pain. Would benefit from diet modification to minced/moist solids to promote improved transit to stomach and for oral comfort. Recommend liquid or crushed medications given esophageal deficits, or avoidance of large diameters would likely suffice. Reflux precautions should be followed strictly (smaller/more frequent meals, maintain upright positioning, etc). Frequent oral care and hydration. Provided education regarding the above recommendations to patient, including reflux management handout. GI consult strongly recommended. If possible, it is recommended that GI team review videos from anterior/posterior view from today's MBSS. Ancillary tests: defer to GI, consideration of EGD, manometry or esophagram? No further [facility] services needed at this time. RECOMMENDATIONS: Diet: IDDSI Level(s) SOLIDS 5-Minced/Moist solids LIQUIDS 0-Thin Liquids Medication Intake: Crushed when able, with applesauce our thin liquids as tolerated. RISK MANAGEMENT: HOB upright as tolerated; upright for all PO intake. Encourage physical mobility as tolerated. Oral hygiene BID/2x per day & before/after PO intake, using friction with toothbrush on all oral structures as tolerated. Posture/Positioning Needs: Maintain upright position at least 30 minutes after meals, Avoid meals/snacks 2-3 hours prior to reclining/sleeping, Sleep with head of bed elevated to reduce likelihood of nocturnal reflux Level of Assistance/Supervision: Independent Strategies/Adaptations/Assistive Equipment: Reduce auditory and/or visual distractions when eating Small sips and bites when eating Slow rate of intake Alternate intake of liquids and solids, Small+frequent meals throughout day ------- --- PFSH All Active Problems (Updated 05/16/23 @ 11:48 by Johana Aldrich NP) Discharge planning issues (Acute) On deep vein thrombosis (DVT) prophylaxis (Acute) Opioid use disorder, severe, on maintenance therapy (Acute) GERD (gastroesophageal reflux disease) (Chronic) Hypothyroid (Chronic) Pneumonia (Acute) Bilateral lower leg cellulitis (Acute) Anxiety (Chronic 03/27/14) COPD (chronic obstructive pulmonary disease) (Chronic) Recurrent aspiration pneumonia (Acute) Bronchitis (Acute) Distal radius fracture (Acute) Medical History Abnormal auditory perception (03/29/14) Opioid use disorder, severe, on maintenance therapy Trouble in sleeping Depression History of drug abuse Irregular heart rhythm Hypothyroid GERD (gastroesophageal reflux disease) Hypertension Surgical History History of thyroidectomy Time spent: 35 minutes (14:30-15:05) Coding CPT Codes EVALUATE SWALLOWING FUNCTION - [id number] ([id number]) Additional Codes Date of Service (32196) Date of service: 05/18/23
[2023-05-18] MEDS: Simvastatin 10 MG TAB PO (20:40)
[2023-05-18] MEDS: Mirtazapine 15 MG TAB 60 MG PO (20:40)
[2023-05-18] MEDS: Normal Saline Flush 10 ML SYR IVP (20:41)
[2023-05-18] MEDS: Zolpidem 5 MG TAB PO (20:44)
[2023-05-18 23:24] LABS: Legionella Ag Detection Urine Negative (Negative)
[2023-05-19] VITALS (59 sets, daily range): BP systolic 113–168; BP diastolic 73–89; PULSE 74–128; RESP 2–32; TEMP 36.1–36.7; O2SAT 82–99
[2023-05-19] MEDS: Levothyroxine 200 MCG TAB PO (05:13)
[2023-05-19] MEDS: dilTIAZem 30 MG TAB PO ×3 (05:13→22:27)
[2023-05-19] MEDS: CEFEPIME 2 GM in Normal Saline 100 ML IVPB ×3 (05:14→20:16)
[2023-05-19] MEDS: guaiFENesin 200 MG/10 ML CUP PO ×4 (06:00→22:27)
[2023-05-19] MEDS: Albuterol 2.5 MG/3 ML INH SOLN VIAL UPD ×2 (06:09→23:24)
[2023-05-19 07:15] LABS: Abs Immature Grans 0.06 10^3/uL (0.0-0.06); Absolute Basophil Count 0.07 10^3/uL (0.0-0.2); Absolute Eosinophil Count 0.15 10^3/uL (0.0-0.7); Absolute Lymphocyte Count 2.45 10^3/uL (1.2-3.4); Absolute Monocyte Count 0.68 10^3/uL (0.1-0.8); Absolute Neutrophil Count 4.98 10^3/uL (1.2-6.7); Basophils % 0.8; Eosinophils % 1.8; HCT 41.1 % (36.0-46.0); HGB 12.9 g/dL (11.2-15.7); Immature Grans % 0.7; Lymphocytes % 29.2; MCH 27.6 pg (27.0-33.0); MCHC 31.4 % (32.0-36.0); MCV 88 fL (80-95); MPV 9.3 fL (8.0-11.0); Monocytes % 8.1; Neutrophils % 59.4; Platelet Count 234 10^3/uL (130-400); RBC 4.67 10^6/uL (3.93-5.22); RDW 15.6 % (11.7-14.6); RDW-SD 50.4 fL; WBC 8.39 10^3/uL (4.4-10.8)
[2023-05-19 07:26] LABS: Anion Gap 6.9 mmol/L (3-11); BUN 11 mg/dL (7-18); C-Reactive Protein 0.09 mg/dL (0.0-0.3); CO2 31.1 mmol/L (21.0-32.0); Calcium 9.3 mg/dL (8.5-10.1); Chloride 101 mmol/L (98-107); Estimated GFR 62.91 (mL/min/1.73m2); Glucose 87 mg/dL (74-106); Magnesium 2.1 mg/dL (1.8-2.4); Potassium 3.7 mmol/L (3.5-5.1); Sodium 139 mmol/L (136-145)
[2023-05-19] MEDS: Albuterol/Ipratropium 3 ML UPD VIAL UPD ×4 (08:27→19:17)
[2023-05-19] MEDS: Tiotropium/Olodaterol 10 PUFF INHALER 2 PUFF IH (08:27)
[2023-05-19] MEDS: predniSONE 20 MG TAB 40 MG PO (08:32)
[2023-05-19 08:36] LABS: Procalcitonin < 0.1 ng/mL
[2023-05-19] MEDS: Methadone Liquid 10 MG/ML 98 MG PO (08:50)
[2023-05-19] MEDS: Normal Saline Flush 10 ML SYR IVP ×4 (08:51→22:37)
[2023-05-19] MEDS: Furosemide 20 MG/2 ML VIAL IVP ×2 (08:51→15:41)
[2023-05-19] MEDS: Enoxaparin 40 MG/0.4 ML SYR SC ×2 (08:55→20:07)
[2023-05-19] MEDS: Dexlansoprazole 30 MG CAP 60 MG PO (08:57)
[2023-05-19] MEDS: Docusate Sodium 100 MG CAP 200 MG PO (08:58)
[2023-05-19] MEDS: Lisinopril 2.5 MG TAB PO (08:58)
--- NOTE | 2023-05-19 13:39 | CHAPLAIN ---
Frieda was up in the chair, reading what looked like a Bible and taking notes, when I visited. She is [employer], and not connected any [employer] churches around here. Frieda seems reserved in her interaction with me. She said she's in touch with the people she wants to be in touch with. According to Dr. Damian's note, Frieda had some sharp chest pains yesterday for a few minutes and didn't notify the nurse, but prayed for it to go away.
--- NOTE | 2023-05-19 13:49 | PTTR_ITS ---
Date of service: 05/19/23 Time of Service: 13:22 PT Notes Visit Reasons: pneumonia,HCAP Inpatient Physical Therapy Treatment Note [facility] Date: 05/19/23 PRECAUTIONS: Fall, standard, activity as tolerated. SUBJECTIVE: Patient reports that she feels she is breathing better, reports still getting short of breath with extended exertion such as getting cleaned up while standing at the sink. OBJECTIVE: Sitting up in chair, on 2L/min supplemental O2, IV attached to RUE. ? PAIN: Reports stiffness / discomfort in knees, R>L VITALS: ? Pre-Treatment: SaO2 90% on 2L/min, HR 80 BPM Mid-Treatment: SaO2 remains >89% on 2L/min throughout. HR as high as 121. ? Post-Treatment: SaO2 92%, HR 86 BPM ? BED MOBILITY/TRANSFERS? Rolling L/R: not assessed Supine-sit: not assessed ? Sit-supine: not assessed ? Sit-stand: independent ? Stand-sit: independent ? Bed-Chair: independent ? Chair-bed: independent ? Therapeutic Exercises (18136o0): Direct one-on-one instruction in therapeutic exercises to develop strength, endurance, range of motion and flexibility. ? Exercises: * standing heel raises x10 * standing hip abduction x10 * mini squats x10 - patient c/o pain in right knee. Verbal and visual cues for correct performance decrease patient's report of pain to no discomfort Ambulation ? Assistive Device: Patient held IV pole for minimal support ? Weight bearing: full Assist: SBA? Distance:? 200 feet? Deviation: Reduced step length, reduced step height, patient reports feeling short of breath. SaO2 remains >89%.? Provided skilled instruction in proper exercise performance Provided skilled manual cues to facilitate proper muscle recruitment and/or form. ASSESSMENT:? Patient tolerates therapy well, recovers to baseline respirations in <2 minutes PLAN: Continue global strengthening per plan of care until patient is medically cleared for discharge TREATMENT CODE/TIME: 25 minutes beginning at 13:22
--- NOTE | 2023-05-19 16:52 | PDOC.CMPRO ---
Date of service: 05/19/23 Time of Service: 16:52 Care Management Progress Note Progress Note Text Progress Note Text: S/O: Remains inpatient per MD, continues to desat on exertion, O2 not at baseline, pleasant but not overly interactive. CM continues to follow. A: 62 year old female admitted to [facility] 05/16/23 for HCAP P: Frieda will return home when ready per MD with new home health services for PT. She will follow up with PCP and plan of care as described. CM continues to follow.
--- NOTE | 2023-05-19 18:14 | PGE_ITS ---
Date of Service Date of service: 05/19/23 Time of Service: 15:30 Assessment and Plan Assessment and plan (1) Chest pain: Status: Acute Assessment and plan: No ACS. She had a 3 beat run of Vtach last night while sleeping, which is not a clinical concern. I think chest pain is related to her pulmonary pathology. Ok to d/c tele. (2) Pneumonia: Status: Acute Assessment and plan: Still sounds rather wheezy and crackly. I discussed her case with Dr Pitts, who feels the primary issue is aspiration pneumonitis and does not require antibiotics. Antibiotics are currently on board for the cellulitis and not for pneumonia. Speech saw patient: needs GI workup for esophageal stricture causing reflux. Continue prednisone, symbicort, scheduled + prn nebs. Will need a steroid taper. Encourage pulmonary toilet. (3) Acute on chronic respiratory failure with hypoxemia: Status: Acute Assessment and plan: As above (4) COPD (chronic obstructive pulmonary disease): Status: Chronic Assessment and plan: As above Qualifiers: COPD type: COPD with acute lower respiratory infection Qualified Code(s): J44.0 - Chronic obstructive pulmonary disease with (acute) lower respiratory infection (5) Bilateral lower leg cellulitis: Status: Acute Assessment and plan: Improving on cefepime. Continue diuresis. Continue cefepime. (6) Hypothyroid: Status: Chronic Assessment and plan: Continue current dose of levothyroxine. (7) GERD (gastroesophageal reflux disease): Status: Chronic Assessment and plan: Continue dexilant (8) Opioid use disorder, severe, on maintenance therapy: Status: Chronic Assessment and plan: Continue methadone (9) On deep vein thrombosis (DVT) prophylaxis: Status: Acute Assessment and plan: SC enoxaparin (10) Discharge planning issues: Status: Acute Assessment and plan: Full code Continues to require hospitalization Subjective Subjective Interval history since last seen: I was called to room because it sounded like she was gargling on secretions in her chest. I came to evaluate the patient. By then she had already had a nebulizer treatment and was feeling better. She denied dizziness, CP, SOB had just gotten better, denied nausea. I had discussed with her the findings of her modified barium swallow from August when a barium pill got stuck in her esophagus and that we were referring her to [facility] for workup. Exam Narrative Exam Narrative: General: Obese female who is sitting up in a chair on 4L of O2 by NC, no dyspnea/tachypnea/cyanosis, looks a little better HEENT: EOMI, MMM, upper airway wheezing Heart: RRR, no m/r/g Lungs: impressive inspiratory and expiratory wheezing B; no gargling heard Abdomen: soft, nontender, nondistended Extremities: BLE edema in addition to lymphedema; the edema is better. Distal BLE erythema, L>R, much improved Objective Last Vital Signs Temp 36.7 C 05/19/23 15:00 Pulse 99 H 05/19/23 15:00 Resp 16 05/19/23 15:00 BP 168/83 H 05/19/23 15:00 Pulse Ox 89 L 05/19/23 15:00 Laboratory Results - last 24 hr 05/17/23 05/19/23 05/19/23 14:45 07:05 07:53 WBC 8.39 RBC 4.67 Hgb 12.9 Hct 41.1 MCV 88 MCH 27.6 MCHC 31.4 L RDW 15.6 H Plt Count 234 MPV 9.3 Immature Gran % 0.7 Neutrophils % 59.4 Lymphocytes % 29.2 Monocytes % 8.1 Eosinophils % 1.8 Basophils % 0.8 Nucleated RBC % 0.0 Absolute Neutrophils 4.98 Absolute Lymphocytes 2.45 Absolute Monocytes 0.68 Absolute Eosinophils 0.15 Absolute Basophils 0.07 Sodium 139 Potassium 3.7 Chloride 101 Carbon Dioxide 31.1 Anion Gap 6.9 BUN 11 Creatinine 1.0 Est GFR (CKD-EPI 2020) 62.91 Glucose 87 Calcium 9.3 Magnesium 2.1 C-Reactive Protein 0.09 Procalcitonin < 0.1 Urine Legionella Ag Negative Time Spent with Patient Time Spent with Patient: 25-34 minutes Time was spent: preparing to see the patient(eg.review tests), obtaining and/or reviewing separately otained hiistory, ordering medications,tests, procedures, referring, communicating with other health health care marketing specialist, indepentently interpreting results, counseling the patient and care coordination
[2023-05-19] MEDS: Simvastatin 10 MG TAB PO (20:07)
[2023-05-19] MEDS: Mirtazapine 15 MG TAB 60 MG PO (22:27)
[2023-05-19] MEDS: LORazepam 0.5 MG TAB PO (22:27)
[2023-05-19] MEDS: Zolpidem 5 MG TAB PO (22:27)
[2023-05-19] MEDS: Ondansetron 4 MG/2 ML VIAL IVP (22:38)
--- NOTE | 2023-05-19 23:11 | W.PC.ACHO ---
Registration Status: ADM IN Primary Language: Preferred Language: Georgian ED Information & Data Chief Complaint RespSymp 05/16/23 08:08 Triage Note Sudden on set diff breathing 05/16/23 07:28 - cellulitis BLE - x1 neb in field Medical / Surgical History (Last Reviewed 05/16/23 @ 08:04 by Trent Parry MD) Abnormal auditory perception (03/29/14) Trouble in sleeping Depression History of drug abuse Irregular heart rhythm Hypertension (Last Reviewed 05/16/23 @ 08:04 by Trent Parry MD) History of thyroidectomy Most Recent Vital Signs Temperature 36.3 C L 05/19/23 21:15 Temperature Source Temporal Artery Scan 05/19/23 21:15 Pulse 106 H 05/19/23 19:53 Pulse Rhythm Regular 05/19/23 15:51 Respiratory Rate 24 05/19/23 19:53 Respiratory Effort Normal 05/19/23 21:15 Respiratory Depth Normal 05/19/23 21:15 Respiratory Pattern Normal 05/19/23 21:15 Blood Pressure 133/79 05/19/23 19:53 Pulse Oximetry 89 L 05/19/23 19:53 Oxygen Delivery Method Nasal Cannula 05/19/23 21:15 Oxygen Flow Rate 4 05/19/23 21:15 Pain Level 0 05/19/23 21:15 Comment pt O2 sats are mid 80s on 3L, RN increased to 6L and still mid 80s. Pt wheezy and with audible secretions. PT encouraged to cough and using acapella. RT paged and came to bedside. provisioning analyst aware. 05/16/23 23:01 Allergies No Known Allergies Allergy (Unverified 05/16/23 10:23) Precautions Isolation Standard precaution 05/16/23 07:35 Active Medications Generic Name Dose Route Start Last Admin Trade Name Freq PRN Reason Stop Dose Admin Albuterol Sulfate 2.5 mg 05/16/23 15:53 05/19/23 06:09 Albuterol 2.5 Mg/3 Ml Inh Soln Vial UPD 2.5 mg Q2H PRN PRN Administration Albuterol/Ipratropium 3 ml 05/16/23 16:00 05/19/23 19:17 Albuterol/Ipratropium 3 Ml Upd Vial UPD 3 ml QID EUGENIO Administration Dexlansoprazole 60 mg 05/18/23 07:30 05/19/23 08:57 Dexlansoprazole 30 Mg Cap PO 60 mg DAILY@0730 EUGENIO Administration Diltiazem HCl 30 mg 05/17/23 14:00 05/19/23 22:27 Diltiazem 30 Mg Tab PO 30 mg Q8H EUGENIO Administration Docusate Sodium 200 mg 05/17/23 08:30 05/19/23 08:58 Docusate Sodium 100 Mg Cap PO 200 mg DAILY EUGENIO Administration Enoxaparin Sodium 40 mg 05/16/23 20:00 05/19/23 20:07 Enoxaparin 40 Mg/0.4 Ml Syr SC 40 mg BID EUGENIO Administration Furosemide 20 mg 05/18/23 08:00 05/19/23 15:41 Furosemide 20 Mg/2 Ml Vial IVP 20 mg BID@0800,1600 EUGNEIO Administration Guaifenesin 200 mg 05/17/23 11:51 05/19/23 22:27 Guaifenesin 200 Mg/10 Ml Cup PO 200 mg Q4H PRN PRN Administration Cefepime HCl 2 gm/ Sodium 100 mls @ 200 mls/hr 05/17/23 20:00 05/19/23 20:59 Chloride IVPB Infused Q8H EUGENIO Infusion Levothyroxine Sodium 200 mcg 05/17/23 06:00 05/19/23 05:13 Levothyroxine 200 Mcg Tab PO 200 mcg DAILY@0600 EUGENIO Administration Lisinopril 2.5 mg 05/17/23 08:30 05/19/23 08:58 Lisinopril 2.5 Mg Tab PO 2.5 mg DAILY EUGENIO Administration Lorazepam 0.5 mg 05/16/23 14:43 05/19/23 22:27 Lorazepam 0.5 Mg Tab PO 0.5 mg BID PRN PRN Administration Methadone HCl 98 mg 05/17/23 08:30 05/19/23 08:50 Methadone Liquid 10 Mg/Ml PO 98 mg DAILY EUGENIO Administration Mirtazapine 60 mg 05/16/23 20:00 05/19/23 22:27 Mirtazapine 15 Mg Tab PO 60 mg QPM EUGENIO Administration Ondansetron HCl 4 mg 05/17/23 18:15 05/19/23 22:38 Ondansetron 4 Mg/2 Ml Vial IVP 4 mg Q6H PRN PRN Administration Prednisone 40 mg 05/18/23 08:30 05/19/23 08:32 Prednisone 20 Mg Tab PO 40 mg DAILY EUGENIO Administration Simvastatin 10 mg 05/16/23 20:00 05/19/23 20:07 Simvastatin 10 Mg Tab PO 10 mg QPM EUGENIO Administration Sodium Chloride 0 ml 05/18/23 11:41 05/19/23 22:37 Normal Saline Flush 10 Ml Syr IVP 10 ml PRN PRN Administration Sodium Chloride 0 ml 05/18/23 20:00 05/19/23 20:07 Normal Saline Flush 10 Ml Syr IVP 10 ml BID EUGENIO Administration Tiotropium [place]/Olodaterol 2 puff 05/19/23 08:30 05/19/23 08:27 Tiotropium/Olodaterol 10 Puff Inhaler IH 2 inh DAILY EUGENIO Administration Zolpidem Tartrate 5 mg 05/16/23 22:00 05/19/23 22:27 Zolpidem 5 Mg Tab PO 5 mg HS EUGENIO Administration IV IV Catheter Type [Right Saline Lock Forearm] IV Catheter Type [Left Hand] Peripheral IV IV Catheter Type [Right Upper Peripheral IV arm] IV Catheter Gauge [Right 20 Forearm] IV Catheter Gauge [Left Hand] 20 IV Catheter Gauge [Right Upper 18 arm] Diagnostics 05/19/23 05/19/23 05/17/23 Range/Units 07:53 07:05 14:45 WBC 8.39 (4.4-10.8) 10^3/uL RBC 4.67 (3.93-5.22) 10^6/uL Hgb 12.9 (11.2-15.7) g/dL Hct 41.1 (36.0-46.0) % MCV 88 (80-95) fL MCH 27.6 (27.0-33.0) pg MCHC 31.4 L (32.0-36.0) % RDW 15.6 H (11.7-14.6) % Plt Count 234 (130-400) 10^3/uL MPV 9.3 (8.0-11.0) fL Immature Gran % 0.7 Neutrophils % 59.4 Lymphocytes % 29.2 Monocytes % 8.1 Eosinophils % 1.8 Basophils % 0.8 Nucleated RBC % 0.0 (0.0-0.3) % Absolute Neutrophils 4.98 (1.2-6.7) 10^3/uL Absolute Lymphocytes 2.45 (1.2-3.4) 10^3/uL Absolute Monocytes 0.68 (0.1-0.8) 10^3/uL Absolute Eosinophils 0.15 (0.0-0.7) 10^3/uL Absolute Basophils 0.07 (0.0-0.2) 10^3/uL Sodium 139 (136-145) mmol/L Potassium 3.7 (3.5-5.1) mmol/L Chloride 101 (98-107) mmol/L Carbon Dioxide 31.1 (21.0-32.0) mmol/L Anion Gap 6.9 (3-11) mmol/L BUN 11 (7-18) mg/dL Creatinine 1.0 (0.55-1.02) mg/dL Est GFR (CKD-EPI 2020) 62.91 (mL/min/1.73m2) Glucose 87 (74-106) mg/dL Calcium 9.3 (8.5-10.1) mg/dL Magnesium 2.1 (1.8-2.4) mg/dL C-Reactive Protein 0.09 (0.0-0.3) mg/dL Procalcitonin < 0.1 ng/mL Urine Legionella Ag Negative (Negative) 05/16/23 11:48 Blood Culture - Preliminary Blood NO GROWTH 72 HOURS 05/16/23 11:38 Blood Culture - Preliminary Blood NO GROWTH 72 HOURS 05/18/23 09:01 Sputum Culture - Preliminary Sputum - Expectorated Normal Marjorie Gram Stain - Final Intake and Output - 24 Hour Total 05/16/23 07:18 thru 05/19/23 22:54 Intake Total 5770 Output Total 3200 Balance 2570 Weight 129.727 kg Intake: IV 2850 Oral 2920 Output: Urine 3200 Other: Urine Color Pale Yellow Urine Appearance Clear Urine Odor None Comment voided in toilet Voiding Methods Bedside Commode Falls Risk Assessment History of Falls Previous History 05/19/23 21:15 Contributing Factors Impairments 05/19/23 21:15 Ambulatory Aids Independent 05/19/23 21:15 Tubes/Lines With any additional score 05/19/23 21:15 Gait Evaluation No gait disturbance 05/19/23 21:15 Cognition No cognitive impairment 05/19/23 21:15 Fall Total Score 38 05/19/23 21:15 Level of Risk Moderate Risk 05/19/23 21:15 Problems (Last Reviewed 05/16/23 @ 08:04 by Trent Parry MD) Aspiration into airway (Acute) Chest pain (Acute) Acute on chronic respiratory failure with hypoxemia (Acute) Discharge planning issues (Acute) On deep vein thrombosis (DVT) prophylaxis (Acute) Opioid use disorder, severe, on maintenance therapy (Chronic) GERD (gastroesophageal reflux disease) (Chronic) Hypothyroid (Chronic) Pneumonia (Acute) Bilateral lower leg cellulitis (Acute) COPD (chronic obstructive pulmonary disease) (Chronic) v v v v v v v v v Sending and/or Receiving Nurses: Please use comment section below to note any information pertinent to the patient hand-off not included above. Information / Comments: Around 1900 Pt had an episode of respiratory distress, feeling like she couldn't take in breath. Pt's symptoms relieved by using IS and Acapella which she keeps at bedside. Pt coming to ICU for closer monitoring of respiratory status. Report received from:Mendel Conway RN at 0457
[2023-05-19 23:58] LABS: Streptococcus Pneumoniae Ag, U Negative (Negative)
[2023-05-20] VITALS (190 sets, daily range): BP systolic 88–154; BP diastolic 59–86; PULSE 59–147; RESP 1–38; TEMP 31–37; O2SAT 84–99
[2023-05-20] MEDS: Normal Saline Flush 10 ML SYR IVP ×3 (03:25→19:58)
[2023-05-20] MEDS: CEFEPIME 2 GM in Normal Saline 100 ML IVPB (03:26)
[2023-05-20] MEDS: Normal Saline 500 ML 30 ML IV (03:26)
[2023-05-20] MEDS: Albuterol 2.5 MG/3 ML INH SOLN VIAL UPD (04:15)
[2023-05-20] MEDS: Levothyroxine 200 MCG TAB PO (05:43)
[2023-05-20] MEDS: dilTIAZem 30 MG TAB PO ×3 (06:10→22:59)
[2023-05-20 07:27] LABS: Abs Immature Grans 0.04 10^3/uL (0.0-0.06); Absolute Basophil Count 0.07 10^3/uL (0.0-0.2); Absolute Eosinophil Count 0.16 10^3/uL (0.0-0.7); Absolute Lymphocyte Count 2.35 10^3/uL (1.2-3.4); Absolute Monocyte Count 0.69 10^3/uL (0.1-0.8); Absolute Neutrophil Count 4.85 10^3/uL (1.2-6.7); Basophils % 0.9; HCT 36.8 % (36.0-46.0); HGB 11.4 g/dL (11.2-15.7); Immature Grans % 0.5; Lymphocytes % 28.8; MCH 27.1 pg (27.0-33.0); MCV 88 fL (80-95); MPV 9.2 fL (8.0-11.0); Monocytes % 8.5; Neutrophils % 59.3; Platelet Count 227 10^3/uL (130-400); RDW 15.8 % (11.7-14.6); RDW-SD 50.6 fL; WBC 8.16 10^3/uL (4.4-10.8)
[2023-05-20] MEDS: Albuterol/Ipratropium 3 ML UPD VIAL UPD ×4 (07:31→19:46)
[2023-05-20] MEDS: Tiotropium/Olodaterol 10 PUFF INHALER 2 PUFF IH (07:36)
[2023-05-20 07:37] LABS: Anion Gap 4.5 mmol/L (3-11); BUN 11 mg/dL (7-18); CO2 35.5 mmol/L (21.0-32.0); CREATININE 0.9 mg/dL (0.55-1.02); Calcium 8.9 mg/dL (8.5-10.1); Chloride 101 mmol/L (98-107); Estimated GFR 71.39 (mL/min/1.73m2); Glucose 88 mg/dL (74-106); Magnesium 2.1 mg/dL (1.8-2.4); Potassium 3.1 mmol/L (3.5-5.1); Sodium 141 mmol/L (136-145)
--- NOTE | 2023-05-20 08:38 | PT.INNT ---
PT Notes Visit Reasons: pneumonia,HCAP Pt had a decline in status and had to be transferred to the ICU.
--- NOTE | 2023-05-20 08:45 | DI.RAD_ITS ---
Exam(s) XR PORTABLE CHEST AP EXAM: XR PORTABLE CHEST AP CLINICAL HISTORY: episodes of respiratory distress, recurrent aspira. TECHNIQUE: 2D digital imaging was performed. COMPARISON: CT CT CHEST PE CTA from 05/16/2023 CR XR PORTABLE CHEST AP from 05/18/2023 FINDINGS: Single AP portable view. Heart size is upper normal. The mediastinum is not widened. There is increasing infiltrate in the left lung. Some infiltrate is noted in the left lower lobe pos terior basal segment as seen on prior CT scan. There also appear to be increasing markings in mid-up per left lung probably superior segment lower lobe. Slight blunting of the costophrenic angle may in dicate a small amount of pleural fluid. Opposite-right lung is clear. No pleural fluid on the right side. IMPRESSION: Increasing infiltrate in the left lung. Recommend nonportable PA and lateral views when clinically p ossible or alternatively CT scan. DATA REPOSITORY: RADIATION DOSE DELIVERED:
--- NOTE | 2023-05-20 08:51 | NUR.NOTE ---
Chest x-ray is performed.Nursing Note:
[2023-05-20] MEDS: POTASSIUM CHLORIDE 20 MEQ/100 ML BAG 50 MEQ IVPB ×2 (08:57→13:01)
--- NOTE | 2023-05-20 09:00 | CMPROGNOTE_ITS ---
Date of service: 05/20/23 Time of Service: 09:00 Care Management Progress Note Progress Note Text Progress Note Text: S/O: Laurence was sitting up in a chair when HOLLAND met with her. Efforts had been underway to transfer her to [facility] or [facility] however she informed CM that the plan has changed. She will remain at [facility] for further care. She has been told that whatever procedure/test was planned cannot be completed until her pneumonia has improved. Laurence had an episode where she may have aspirated yesterday, She is currently on a clear liquid diet with only thin liquids. She verbalized not knowing when her diet would be advanced. Laurence shared that she has had 4 hospitalizations for pneumonia this year. Her most recent stay was at [facility] for 12 days at the end of March. She is now oxygen dependent at home. She uses 2L/minute of nasal O2 at rest and 3L/min with activity. Laurence admitted that she was a bit bored so CM provided her with puzzle books and a coloring book to help pass the time.Kiara is currently on high flow nasal cannula and is saturating in the high 80s to low 90s. A: 62 year old female admitted to [facility] 05/16/23 for HCAP P: Frieda will discharge home when medically cleared with new home health services for PT. She will follow up with PCP and plan of care as described and transport with family. HOLLAND diane continues to follow and assess for ongoing discharge concerns.
[2023-05-20] MEDS: Enoxaparin 40 MG/0.4 ML SYR SC ×2 (09:29→19:57)
[2023-05-20] MEDS: Docusate Sodium 100 MG/10 ML CUP PO ×2 (09:29→19:57)
[2023-05-20] MEDS: Furosemide 20 MG/2 ML VIAL IVP (09:29)
[2023-05-20] MEDS: methylPREDNISolone SUCC 40 MG VIAL IVP (09:30)
[2023-05-20] MEDS: guaiFENesin 200 MG/10 ML CUP PO ×4 (09:30→22:58)
[2023-05-20] MEDS: Pantoprazole 40 MG VIAL IVP (09:32)
[2023-05-20] MEDS: Methadone Liquid 10 MG/ML 98 MG PO (09:33)
[2023-05-20 09:45] LABS: Bilirubin Negative (Negative); Blood Negative (Negative); Clarity Clear (Clear); Glucose Negative (Negative); Ketones Negative (Negative); Leukocyte Esterase Negative (Negative); Nitrite Negative (Negative); Urobilinogen 0.2 mg/dL (Up to 0.2)
--- NOTE | 2023-05-20 10:25 | DI.CT_ITS ---
Exam(s) CT CHEST WO EXAM: CT CHEST WO CLINICAL HISTORY: acutely worsening hypoxic respiratory failure. TECHNIQUE: Multi planar reconstructions were performed. CONTRAST MATERIAL: None COMPARISON: CT CT CHEST PE CTA from 05/16/2023 CR XR PORTABLE CHEST AP from 05/20/2023 FINDINGS: CHEST: LUNGS: Previously present infiltrate in the posterior basal segment of the left lower lobe seen on CT scan 4 days ago has mostly cleared. However, there is some new mild infiltrate in the left upper lo be (corresponding to the finding on today's portable chest radiograph) which is in the apical posteri or segment of the left upper lobe adjacent to the major fissure and extending down into the lingular segment of the left lung, not previously present. There is no pleural effusion on either side. Mcdowell helen, also seen on today's study is some mild do developing infiltrate in the opposite-right lung base which was not present 4 days ago. Some mucus in the left side of the bertha and proximal left vivek tem bronchus. MEDIASTINUM: There is no obvious hilar nor mediastinal adenopathy. Visualized thyroid unremarkable.No obvious axillary adenopathy CARDIAC: Heart size is normal. There is no pericardial effusion.Caliber of the thoracic aorta is wit hin normal limits. VISUALIZED UPPER ABDOMEN:No acute finding seen OSSEOUS: No significant osseous lesions.No fractures.. IMPRESSION: 1. There is some infiltrate now evident in the left upper lobe and lingular segment of the left lung, corresponding to the new findings on today's chest x-ray. 2. Previously present infiltrate in the posterior basal segment of the left lower lobe has resolved. However, there is now some mild developing infiltrate in the posterior basal segment of the opposit e-right lower lobe. Mild increased markings in the medial segment of the right middle lobe are uncha nged. 3. No pleural effusions on either side. No new intrathoracic adenopathy. RADIATION DOSE DELIVERED: Total DLP DATA REPOSITORY: All CT scans at this facility are submitted to the National Radiology Data Registry (NRDR) Dose Index Registry (DIR) with the [employer] (ACR). RADIATION OPTIMIZATION: All CT scans at this facility use at least one of these dose optimization te chniques: automated exposure control; mA and/or kV adjustment per patient size (includes targeted exa ms where dose is matched to clinical indication); or iterative reconstruction.
--- NOTE | 2023-05-20 10:44 | NUR.NOTE ---
Patient is taken down to radiology for CT in wheelchair on telemetry and oxymask. Respiratory therapist accompanies RN. Patient tolerates procedure well. Patient transported in wheelchair. Patient now back in room on 60% FIO2 and 45 liters.Nursing Note:
[2023-05-20] MEDS: AMPICILLIN/SULBACTAM 3 GM in Normal Saline 100 ML IVPB (11:50)
--- NOTE | 2023-05-20 18:30 | W.PM.PROGNOT ---
Date of Service Date of service: 05/20/23 Time of Service: 08:30 Assessment and Plan Assessment and plan (1) Acute on chronic respiratory failure with hypoxemia: Status: Acute Assessment and plan: Due to recurrent aspiration events (presumed reflux of esophageal contents due to esophageal narrowing). The patient is on 50 L 65% FiO2 humidified heated high flow at this time and appears relatively stable. Started on zosyn in place of cefepime. Continue steroids, scheduled + prn nebs, pulmonary toilet. I changed her diet to a clear thin liquid. I have changed as many medications to IV as I could. I have asked RT to consider techniques to help the patient expectorate her secretions. Her guaifenesin is scheduled. (2) Pneumonia: Status: Acute Assessment and plan: Aspiration PNA. As above Started on zosyn per recommendation of [facility] pulmonology. Continue steroids, nebs, expectorants. (3) Aspiration into airway: Status: Acute Assessment and plan: As above. Recurrent. MBBS in 08/2022 showed a barium tablet stuck in the distal esophagus with reflux of fluid above it in the upward direction. This needs to be addressed with an EGD when the patient is stable. However, for now I do not think she is safe for any diet other than thin liquids. (4) Esophageal abnormality: Status: Acute Assessment and plan: As above (5) Chest pain: Status: Resolved Assessment and plan: No ACS. Could be either due to pulmonary or esophageal etiology. (6) COPD (chronic obstructive pulmonary disease): Status: Chronic Assessment and plan: As above Qualifiers: COPD type: COPD with acute lower respiratory infection Qualified Code(s): J44.0 - Chronic obstructive pulmonary disease with (acute) lower respiratory infection (7) Bilateral lower leg cellulitis: Status: Acute Assessment and plan: improving. Monitor on new abx. (8) Hypothyroid: Status: Chronic Assessment and plan: Continue current dose of levothyroxine. (9) GERD (gastroesophageal reflux disease): Status: Chronic Assessment and plan: I d/c'ed dexilant since it is a pill and ordered IV protonix. (10) Opioid use disorder, severe, on maintenance therapy: Status: Chronic Assessment and plan: Continue methadone (11) On deep vein thrombosis (DVT) prophylaxis: Status: Acute Assessment and plan: SC enoxaparin (12) Discharge planning issues: Status: Acute Assessment and plan: Full code Transferred to the ICU on 05/19/23. No beds at [facility]; [facility] recommended calling back if the patient deteriorates, but also declined the patient due to only having 1 ICU bed available and having to triage multiple critical care patients for that bed. Continues to require hospitalization Total Critical Care Time 60 minutes. Subjective Subjective Interval history since last seen: Transferred to the ICU last night after a rapid response for a witnessed episode of strider and respiratory distress which started while working with an incentive spirometer. The patient had had dinner not long before. Frieda feels a little better today, but I am told she had another episode of shortness of breath this morning. She was transitioned to a humidified heated cannula. At the time that I saw her she was on 50L 65% FiO2 and desaturating to the 70s with minimal exertion (92% at rest). She denied dizziness, CP, n/v. She was having a hard time bringing up secretions. Case discussed with [facility] critical care, where I had requested transfer. The critical care fellow there and the critical care tool filer hand spoke with the GI team and felt that the patient would not be a good candidate for an EGD right now in her acute state. It was felt that she did not need a bronchoscopy right now either. I also spoke with [facility], who did not have critical care capacity. The patient has remained stable on 50 L 65% FiO2 throughout the day. Should she deteriorate, [facility] critical care stated they would reconsider her transfer. Exam Narrative Exam Narrative: General: Obese female who is sitting up in a chair on a humidified heated NC at 50 L 65 % FiO2, no dyspnea/tachypnea/cyanosis, speaking in full sentences. HEENT: EOMI, MMM, upper airway wheezing Heart: RRR, no m/r/g Lungs: unchanged inspiratory and expiratory wheezing B; no crackles today. no gargling heard Abdomen: soft, nontender, nondistended Extremities: BLE edema in addition to lymphedema; the edema is better. Distal BLE erythema, L>R, improved Objective Last Vital Signs Temp 36.5 C 05/20/23 14:18 Pulse 96 H 05/20/23 16:19 Resp 11 L 05/20/23 16:19 BP 136/83 12/08/23 14:18 Pulse Ox 91 L 05/20/23 16:19 Laboratory Results - last 24 hr 05/17/23 05/20/23 05/20/23 14:45 06:53 09:25 WBC 8.16 RBC 4.20 Hgb 11.4 Hct 36.8 MCV 88 MCH 27.1 MCHC 31.0 L RDW 15.8 H Plt Count 227 MPV 9.2 Immature Gran % 0.5 Neutrophils % 59.3 Lymphocytes % 28.8 Monocytes % 8.5 Eosinophils % 2.0 Basophils % 0.9 Nucleated RBC % 0.0 Absolute Neutrophils 4.85 Absolute Lymphocytes 2.35 Absolute Monocytes 0.69 Absolute Eosinophils 0.16 Absolute Basophils 0.07 Sodium 141 Potassium 3.1 L Chloride 101 Carbon Dioxide 35.5 H Anion Gap 4.5 BUN 11 Creatinine 0.9 Est GFR (CKD-EPI 2020) 71.39 Glucose 88 Calcium 8.9 Magnesium 2.1 Urine Color Yellow Urine Clarity Clear Urine pH 7.0 Ur Specific [place] 1.010 Urine Protein Negative Urine Ketones Negative Urine Blood Negative Urine Nitrite Negative Urine Bilirubin Negative Urine Urobilinogen 0.2 Ur Leukocyte Esterase Negative Urine Glucose Negative Ur Strep pneumoniae Ag Negative Objective Narrative Objective Narrative: CXR: Increasing infiltrate in the left lung. Recommend nonportable PA and lateral views when clinically possible or alternatively CT scan. CT chest w/o contrast: 1. There is some infiltrate now evident in the left upper lobe and lingular segment of the left lung, corresponding to the new findings on today's chest x-ray. 2. Previously present infiltrate in the posterior basal segment of the left lower lobe has resolved. However, there is now some mild developing infiltrate in the posterior basal segment of the opposite-right lower lobe. Mild increased markings in the medial segment of the right middle lobe are unchanged. 3. No pleural effusions on either side. No new intrathoracic adenopathy. Time Spent with Patient Time Spent with Patient: >50 minutes Time was spent: preparing to see the patient(eg.review tests), obtaining and/or reviewing separately otained hiistory, ordering medications,tests, procedures, referring, communicating with other health dog daycare provider, indepentently interpreting results, counseling the patient and care coordination
[2023-05-20] MEDS: PIPERACILLIN/TAZO 4.5 GM in Normal Saline 100 ML IVPB (18:54)
[2023-05-20] MEDS: LORazepam 0.5 MG TAB PO (22:59)
[2023-05-21] VITALS (44 sets, daily range): BP systolic 112–136; BP diastolic 67–78; PULSE 59–111; RESP 5–42; TEMP 34–37; O2SAT 90–99
[2023-05-21] MEDS: PIPERACILLIN/TAZO 4.5 GM in Normal Saline 100 ML IVPB ×5 (00:19→23:57)
[2023-05-21] MEDS: Normal Saline Flush 10 ML SYR IVP ×5 (00:21→23:58)
[2023-05-21] MEDS: guaiFENesin 200 MG/10 ML CUP PO ×6 (01:26→22:18)
[2023-05-21] MEDS: Levothyroxine 200 MCG TAB PO (05:56)
[2023-05-21 06:45] LABS: Abs Immature Grans 0.03 10^3/uL (0.0-0.06); Absolute Basophil Count 0.03 10^3/uL (0.0-0.2); Absolute Eosinophil Count 0.01 10^3/uL (0.0-0.7); Absolute Lymphocyte Count 1.56 10^3/uL (1.2-3.4); Absolute Monocyte Count 0.81 10^3/uL (0.1-0.8); Absolute Neutrophil Count 6.79 10^3/uL (1.2-6.7); Basophils % 0.3; Eosinophils % 0.1; HCT 37.5 % (36.0-46.0); HGB 11.7 g/dL (11.2-15.7); Immature Grans % 0.3; Lymphocytes % 16.9; MCH 27.3 pg (27.0-33.0); MCHC 31.2 % (32.0-36.0); MCV 87 fL (80-95); MPV 9.7 fL (8.0-11.0); Monocytes % 8.8; Neutrophils % 73.6; Platelet Count 257 10^3/uL (130-400); RBC 4.29 10^6/uL (3.93-5.22); RDW 15.3 % (11.7-14.6); RDW-SD 48.9 fL; WBC 9.23 10^3/uL (4.4-10.8)
[2023-05-21 07:07] LABS: Anion Gap 5.5 mmol/L (3-11); BUN 11 mg/dL (7-18); CO2 32.5 mmol/L (21.0-32.0); Calcium 9.1 mg/dL (8.5-10.1); Chloride 101 mmol/L (98-107); Estimated GFR 62.91 (mL/min/1.73m2); Glucose 87 mg/dL (74-106); Magnesium 2.1 mg/dL (1.8-2.4); Potassium 3.6 mmol/L (3.5-5.1); Sodium 139 mmol/L (136-145)
[2023-05-21] MEDS: Albuterol/Ipratropium 3 ML UPD VIAL UPD ×4 (08:01→22:17)
[2023-05-21] MEDS: Tiotropium/Olodaterol 10 PUFF INHALER 2 PUFF IH (08:22)
[2023-05-21] MEDS: Pantoprazole 40 MG VIAL IVP (08:41)
[2023-05-21] MEDS: methylPREDNISolone SUCC 40 MG VIAL IVP ×3 (08:41→23:58)
[2023-05-21] MEDS: Methadone Liquid 10 MG/ML 98 MG PO (08:42)
[2023-05-21] MEDS: Enoxaparin 40 MG/0.4 ML SYR SC ×2 (08:42→20:12)
[2023-05-21] MEDS: Docusate Sodium 100 MG/10 ML CUP PO ×2 (08:42→20:12)
--- NOTE | 2023-05-21 10:14 | PGE_ITS ---
Date of Service Date of service: 05/21/23 Time of Service: 10:14 Assessment and Plan Assessment and plan (1) Acute on chronic respiratory failure with hypoxemia: Status: Acute Assessment and plan: secondary to recurrent aspiration event. now on Zosyn day#2, cont. DuoNeb, HFNC w/attempt to wean to NC, cont. IS and acapella, ambulate as tolerated, continue iv lasix to maintain negative fluid balance, continue steroids Professional time spent interviewing and examining patient, discussion of goals of care with hospital team (care management, nursing and consulting professi onrichard) was 40 minutes. (2) Pneumonia: Status: Acute Assessment and plan: as above Qualifiers: Pneumonia type: aspiration pneumonia Aspiration pneumonia type: due to regurgitated food Laterality: bilateral Lung location: upper lobe of lung Qualified Code(s): J69.0 - Pneumonitis due to inhalation of food and vomit (3) Aspiration into airway: Status: Acute Assessment and plan: As above. Recurrent. MBBS in 08/2022 showed a barium tablet stuck in the distal esophagus with reflux of fluid above it. When she has recovered from her acute respiratory event, she will need GI referral for EGD, possible dilatation of her lower esophagus Qualifiers: Encounter type: initial encounter Qualified Code(s): T17.908A - Unspecified foreign body in respiratory tract, part unspecified causing other injury, initial encounter (4) Esophageal abnormality: Status: Acute Assessment and plan: As above (5) COPD (chronic obstructive pulmonary disease): Status: Chronic Assessment and plan: As above Qualifiers: COPD type: COPD with acute lower respiratory infection Qualified Code(s): J44.0 - Chronic obstructive pulmonary disease with (acute) lower respiratory infection (6) Bilateral lower leg cellulitis: Status: Acute Assessment and plan: improving. Monitor on new abx. Her erythema of her legs looks more like dependent rubor (7) Hypothyroid: Status: Chronic Assessment and plan: Continue current dose of levothyroxine. Qualifiers: Hypothyroidism type: acquired Qualified Code(s): E03.9 - Hypothyroidism, unspecified (8) GERD (gastroesophageal reflux disease): Status: Chronic Assessment and plan: now on iv protonix Qualifiers: Esophagitis presence: esophagitis presence not specified Qualified Code(s): K21.9 - Gastro-esophageal reflux disease without esophagitis (9) Opioid use disorder, severe, on maintenance therapy: Status: Chronic Assessment and plan: Continue methadone (10) On deep vein thrombosis (DVT) prophylaxis: Status: Acute Assessment and plan: SC enoxaparin (11) Discharge planning issues: Status: Acute Assessment and plan: Full code Transferred to the ICU on 05/19/23. When Dr. Damian transferred the patient to ICU, [place] [facility] [place] [facility] and they did not have any bed capacity. At this point she seems to be improving significantly enough that she does not require transfer Subjective Subjective Interval history since last seen: Jody states she is feeling better today she is not short of breath. However she still requiring high flow oxygen 42%, 35 L/min. Minimal cough is minimally productive. Patient has had a known problem with choking spells related to lower esophageal narrowing. Patient states she has a follow-up with a marketing communications specialist at [facility] she states this is on June 08. However she does not have a follow-up with a GI specialist. Exam Narrative Exam Narrative: Obese white female sitting up in a chair able to talk in complete sentences. She is working with her phone. She is not dyspneic with normal conversation. She remains on high flow oxygen. Had nursing drive her down from 42% to 38% and attempt to try to wean her from high flow oxygen to a regular nasal cannula. Saturation is now at 88% has been very between 88 and 90%. Lungs diffuse expiratory rhonchi and wheezes Heart regular rate and rhythm telemetry shows sinus rhythm Abdomen is obese soft slightly distended nontender, patient reports she has not had a bowel movement since admission Lower extremities 2+ pedal edema Objective Last Vital Signs Temp 36.4 C L 05/21/23 07:53 Pulse 87 05/21/23 08:23 Resp 15 05/21/23 08:23 BP 117/78 05/21/23 08:03 Pulse Ox 92 05/21/23 08:23 Laboratory Results - last 24 hr 05/21/23 05:38 WBC 9.23 RBC 4.29 Hgb 11.7 Hct 37.5 MCV 87 MCH 27.3 MCHC 31.2 L RDW 15.3 H Plt Count 257 MPV 9.7 Immature Gran % 0.3 Neutrophils % 73.6 Lymphocytes % 16.9 Monocytes % 8.8 Eosinophils % 0.1 Basophils % 0.3 Nucleated RBC % 0.0 Absolute Neutrophils 6.79 H Absolute Lymphocytes 1.56 Absolute Monocytes 0.81 H Absolute Eosinophils 0.01 Absolute Basophils 0.03 Sodium 139 Potassium 3.6 Chloride 101 Carbon Dioxide 32.5 H Anion Gap 5.5 BUN 11 Creatinine 1.0 Est GFR (CKD-EPI 2020) 62.91 Glucose 87 Calcium 9.1 Magnesium 2.1 Time Spent with Patient Time Spent with Patient: 35-49 minutes Time was spent: preparing to see the patient(eg.review tests), ordering medications,tests, procedures, referring, communicating with other health intensive care unit registered nurse, indepentently interpreting results, counseling the patient and care coordination
[2023-05-21] MEDS: Spironolactone 25 MG TAB PO (10:56)
[2023-05-21] MEDS: Polyethylene Glycol 3350 17 GM PACKET PO (12:06)
[2023-05-21] MEDS: Milk of Magnesia 30 ML CUP PO (12:21)
[2023-05-21] MEDS: dilTIAZem 30 MG TAB PO ×2 (13:51→22:18)
[2023-05-21] MEDS: Furosemide 20 MG/2 ML VIAL IVP (16:09)
[2023-05-21 17:18] LABS: Mycoplasma Pneumoniae PCR Negative (Negative); Specimen source Sputum
[2023-05-21] MEDS: Mirtazapine 15 MG TAB 60 MG PO (20:13)
[2023-05-22] VITALS (28 sets, daily range): BP systolic 125–149; BP diastolic 69–82; PULSE 54–111; RESP 5–20; TEMP 33–37; O2SAT 90–97
[2023-05-22] MEDS: LORazepam 0.5 MG TAB PO ×2 (00:02→22:26)
[2023-05-22] MEDS: guaiFENesin 200 MG/10 ML CUP PO ×6 (02:23→22:16)
[2023-05-22 05:50] LABS: Abs Immature Grans 0.02 10^3/uL (0.0-0.06); Absolute Basophil Count 0.01 10^3/uL (0.0-0.2); Absolute Eosinophil Count 0.02 10^3/uL (0.0-0.7); Absolute Lymphocyte Count 0.78 10^3/uL (1.2-3.4); Absolute Monocyte Count 0.14 10^3/uL (0.1-0.8); Basophils % 0.1; Eosinophils % 0.3; HCT 40.3 % (36.0-46.0); HGB 12.6 g/dL (11.2-15.7); Immature Grans % 0.3; Lymphocytes % 10.2; MCH 27.3 pg (27.0-33.0); MCHC 31.3 % (32.0-36.0); MCV 87 fL (80-95); MPV 9.2 fL (8.0-11.0); Monocytes % 1.8; Neutrophils % 87.3; Platelet Count 221 10^3/uL (130-400); RBC 4.62 10^6/uL (3.93-5.22); RDW 15.1 % (11.7-14.6); RDW-SD 48.4 fL; WBC 7.67 10^3/uL (4.4-10.8)
[2023-05-22] MEDS: PIPERACILLIN/TAZO 4.5 GM in Normal Saline 100 ML IVPB ×3 (05:58→17:49)
[2023-05-22] MEDS: Levothyroxine 200 MCG TAB PO (05:59)
[2023-05-22 06:09] LABS: ALT 29 U/L (14-59); AST 22 U/L (15-37); Albumin 3.4 g/dL (3.4-5.0); Alkaline Phosphatase 84 U/L (46-116); Anion Gap 8.9 mmol/L (3-11); BUN 12 mg/dL (7-18); Bilirubin, Total 0.5 mg/dL (0.2-1.0); C-Reactive Protein 0.05 mg/dL (0.0-0.3); CO2 33.1 mmol/L (21.0-32.0); CREATININE 0.9 mg/dL (0.55-1.02); Calcium 9.5 mg/dL (8.5-10.1); Chloride 99 mmol/L (98-107); Estimated GFR 71.39 (mL/min/1.73m2); Glucose 132 mg/dL (74-106); Potassium 3.8 mmol/L (3.5-5.1); Sodium 141 mmol/L (136-145); Total Protein 7.1 g/dL (6.4-8.2)
[2023-05-22 06:58] LABS: Procalcitonin < 0.1 ng/mL
[2023-05-22] MEDS: Albuterol/Ipratropium 3 ML UPD VIAL UPD ×4 (08:03→20:57)
[2023-05-22] MEDS: Tiotropium/Olodaterol 10 PUFF INHALER 2 PUFF IH (08:03)
[2023-05-22] MEDS: Normal Saline Flush 10 ML SYR IVP ×3 (08:08→20:25)
[2023-05-22] MEDS: Methadone Liquid 10 MG/ML 98 MG PO (08:09)
[2023-05-22] MEDS: Enoxaparin 40 MG/0.4 ML SYR SC ×2 (08:09→20:25)
[2023-05-22] MEDS: Furosemide 20 MG/2 ML VIAL IVP ×2 (08:10→16:01)
[2023-05-22] MEDS: Milk of Magnesia 30 ML CUP PO (08:10)
[2023-05-22] MEDS: methylPREDNISolone SUCC 40 MG VIAL IVP ×2 (08:10→20:24)
[2023-05-22] MEDS: Pantoprazole 40 MG VIAL IVP (08:11)
[2023-05-22] MEDS: Spironolactone 25 MG TAB PO (08:11)
[2023-05-22] MEDS: Docusate Sodium 100 MG/10 ML CUP PO ×3 (08:11→20:23)
[2023-05-22] MEDS: Polyethylene Glycol 3350 17 GM PACKET PO ×2 (08:14→20:23)
--- NOTE | 2023-05-22 09:15 | W.PM.PROGNOT ---
Date of Service Date of service: 05/22/23 Time of Service: 09:15 Assessment and Plan Assessment and plan (1) Acute on chronic respiratory failure with hypoxemia: Status: Acute Assessment and plan: Secondary to recurrent aspiration event superimposed on underlying COPD. Patient remains on a clear liquid diet and seems to be tolerating this. Patient needs to have an EGD and probably esophageal dilatation of her distal esophageal stricture. Will discuss her case further with GI on Tuesday morning. She will need to recover from her acute respiratory event prior to any endoscopy. She would be considered too high risk for endoscopy here at [facility] and therefore would need referral to either [facility] or [facility]. Continue empiric treatment with Zosyn day #3, will continue for total of 5 days. First dose was given on the evening of May 20 therefore she will only have 3 full days after tomorrow. Urine Legionella and urine strep antigens were negative. Mycoplasma is pending at this time. WBCs are normal at 7600 in spite of her being on steroids and being treated for pneumonia. Procalcitonin level is less than 0.1 and has remained normal since admission. CRP is also normal at 0.05. Professional time spent interviewing and examining patient, discussion of goals of care with hospital team (care management, nursing and consulting professionals) was 35 minutes. (2) Pneumonia: Status: Acute Assessment and plan: as above Qualifiers: Pneumonia type: aspiration pneumonia Aspiration pneumonia type: due to regurgitated food Laterality: bilateral Lung location: upper lobe of lung Qualified Code(s): J69.0 - Pneumonitis due to inhalation of food and vomit (3) Aspiration into airway: Status: Acute Assessment and plan: As above. Recurrent. MBBS in 08/2022 showed a barium tablet stuck in the distal esophagus with reflux of fluid above it. When she has recovered from her acute respiratory event, she will need GI referral for EGD, possible dilatation of her lower esophagus Qualifiers: Encounter type: initial encounter Qualified Code(s): T17.908A - Unspecified foreign body in respiratory tract, part unspecified causing other injury, initial encounter (4) COPD (chronic obstructive pulmonary disease): Status: Chronic Assessment and plan: As above Qualifiers: COPD type: COPD with acute lower respiratory infection Qualified Code(s): J44.0 - Chronic obstructive pulmonary disease with (acute) lower respiratory infection (5) Esophageal abnormality: Status: Acute Assessment and plan: As above (6) Bilateral lower leg cellulitis: Status: Acute Assessment and plan: improving. Monitor on new abx (Zosyn) Her erythema of her legs looks more like dependent rubor, hopefully will continue to improve w/ treatment of her edema. I have her on spironolactone along w/ the iv lasix (7) Hypothyroid: Status: Chronic Assessment and plan: Continue current dose of levothyroxine. Qualifiers: Hypothyroidism type: acquired Qualified Code(s): E03.9 - Hypothyroidism, unspecified (8) GERD (gastroesophageal reflux disease): Status: Chronic Assessment and plan: now on iv protonix twice a day. Will arrange GI consult once her respiratory status improves Qualifiers: Esophagitis presence: esophagitis presence not specified Qualified Code(s): K21.9 - Gastro-esophageal reflux disease without esophagitis (9) Constipation: Status: Acute Assessment and plan: increase docusate to 100 mg tid, add senna daily and trial of Relistor and dulcolax, if no results then proceed w/ BM. I also increased her Miralax to bid Qualifiers: Constipation type: drug induced constipation Qualified Code(s): K59.03 - Drug induced constipation (10) Opioid use disorder, severe, on maintenance therapy: Status: Chronic Assessment and plan: Continue methadone (11) On deep vein thrombosis (DVT) prophylaxis: Status: Acute Assessment and plan: SC enoxaparin (12) Discharge planning issues: Status: Acute Assessment and plan: Full code Transferred to the ICU on 05/19/23. When Dr. Damian transferred the patient to ICU, [place] [facility] and they did not have any bed capacity. At this point she seems to be improving significantly enough that she does not require transfer Subjective Subjective Interval history since last seen: Patient's breathing has improved. She is not short of breath at rest. High flow oxygen is gradually being weaned down. She is down to 28 L/min and 35% FiO2. Her cough is not as productive. We are also diuresing her. After 20 Lasix this morning she put out 775 mL. She was net -1100 mL from yesterday. Patient remains constipated and has not BM in 5 days. I have increased her MiraLAX to twice a day increased her docusate to 3 times a day added senna at night as well as Dulcolax suppository. Will give her a dose of Relistor and if no bowel movement today we will proceed with an enema. Exam Narrative Exam Narrative: Middle-aged white female sitting up in her chair not in any respiratory distress watching TV just having finished her liquid breakfast. She is alert and oriented x 3. Lungs diffuse scattered expiratory wheezes and rhonchi Heart is regular rate and rhythm Abdomen is obese soft nontender to palpation she has active bowel sounds throughout. Lower extremities 2+ edema with some faint diffuse erythema of her legs probably secondary to dependent rubor. There is no increased warmth no fluctuance to the skin. Objective Last Vital Signs Temp 36.3 C L 05/22/23 07:33 Pulse 96 H 05/22/23 08:17 Resp 13 05/22/23 08:17 BP 125/82 05/22/23 08:01 Pulse Ox 93 05/22/23 08:17 Laboratory Results - last 24 hr 05/22/23 05:30 WBC 7.67 RBC 4.62 Hgb 12.6 Hct 40.3 MCV 87 MCH 27.3 MCHC 31.3 L RDW 15.1 H Plt Count 221 MPV 9.2 Immature Gran % 0.3 Neutrophils % 87.3 Lymphocytes % 10.2 Monocytes % 1.8 Eosinophils % 0.3 Basophils % 0.1 Nucleated RBC % 0.0 Absolute Neutrophils 6.70 Absolute Lymphocytes 0.78 L Absolute Monocytes 0.14 Absolute Eosinophils 0.02 Absolute Basophils 0.01 Sodium 141 Potassium 3.8 Chloride 99 Carbon Dioxide 33.1 H Anion Gap 8.9 BUN 12 Creatinine 0.9 Est GFR (CKD-EPI 2020) 71.39 Glucose 132 H Calcium 9.5 Total Bilirubin 0.5 AST 22 ALT 29 Alkaline Phosphatase 84 C-Reactive Protein 0.05 Total Protein 7.1 Albumin 3.4 Procalcitonin < 0.1 Time Spent with Patient Time Spent with Patient: 35-49 minutes Time was spent: preparing to see the patient(eg.review tests), ordering medications,tests, procedures, referring, communicating with other health outdoor emergency care technician, indepentently interpreting results, counseling the patient and care coordination
[2023-05-22] MEDS: Methylnaltrexone 12 MG/0.6 ML VIAL SC (09:46)
[2023-05-22] MEDS: Bisacodyl 10 MG SUPP PR (09:47)
--- NOTE | 2023-05-22 12:49 | IN_ITS ---
PT Notes Visit Reasons: pneumonia,HCAP Physical Therapy Inpatient Initial Evaluation Date: 05/22/2023 Referring Doctor: Patience Damian MD PT Orders: PT CONSULT: Limited ability Precautions: Fall. Standard. Activity as tolerated. Patient Profile/Admitting Diagnosis: Jody is a 62-year-old female who presented to the ED on 05/16/2023 due to worsening cough, shortness of breath, and bilateral lower extremity redness. Converted to ICU level of care as of 05/20/2023, converted back to med surg as of 05/22/23. Acute and chronic respiratory failure , pneumonia, aspiration into airway, COPD exacerbation, esophageal abnormality, and B LE cellulitis. PMHX: All Active Problems (Updated 05/16/23 @ 11:48 by Johana Aldrich NP) Discharge planning issues (Acute) On deep vein thrombosis (DVT) prophylaxis (Acute) Opioid use disorder, severe, on maintenance therapy (Acute) GERD (gastroesophageal reflux disease) (Chronic) Hypothyroid (Chronic) Pneumonia (Acute) Bilateral lower leg cellulitis (Acute) Anxiety (Chronic 03/27/14) COPD (chronic obstructive pulmonary disease) (Chronic) Recurrent aspiration pneumonia (Acute) Bronchitis (Acute) Distal radius fracture (Acute) Medical History Abnormal auditory perception (03/29/14) Opioid use disorder, severe, on maintenance therapy Trouble in sleeping Depression History of drug abuse Irregular heart rhythm Hypothyroid GERD (gastroesophageal reflux disease) Hypertension Surgical History History of thyroidectomy Social History/Home Situation: Lives with significant other in a private home with out any entry steps. With all aspects of ADLs prior to admission. Equipment Owned/DME: None Subjective: Feels much better. No SOB during walk. Reported pain in R hip which patient states she had a few months back. Questioning muscle strain. Objective: General Observation: Seated on bedside chair. Oxygen supplementation via NC at 8 L/min. Agreeable to being walked from ICU room to room 229 as she converts to meds urg level of care as of today. Mental Status: Alert and oriented as to person, place, time, and purpose. Able to pay attention, focus, and respond appropriately. Pain: Denies Vital Signs: Saturating at 88% on 8 L during walk on 7 L/min ROM: Right Upper Extremity: Shoulder Flexion WFL. Shoulder abduction WFL. Elbow flexion WFL. Wrist flexion WFL. Functional opening and closing of hand WFL. Left Upper Extremity: Shoulder Flexion WFL. Shoulder abduction WFL. Elbow flexion WFL. Wrist flexion WFL. Functional opening and closing of hand WFL. Right Lower Extremity: Hip flexion WFL but with pain at mid and end-rage of motion. Hip abduction WFL. Knee flexion WFL. Ankle dorsiflexion WFL. Ankle plantarflexion WFL. Left Lower Extremity: Hip flexion WFL. Hip abduction WFL. Knee flexion WFL. Ankle dorsiflexion WFL. Ankle plantarflexion WFL. Strength: Right Upper Extremity: Shoulder flexors 4/5. Shoulder abductors 5/5. Elbow flexors 5/5. Elbow extensors 5/5. Iron And Steel Work Supervisor strong. Left Upper Extremity: Shoulder flexors 4/5. Shoulder abductors 5/5. Elbow flexors 5/5. Elbow extensors 5/5. Iron And Steel Work Supervisor strong. Right Lower Extremity: Hip flexors 4/5. Hip abductors 5/5. Knee flexors 5/5. Knee extensors 4/5. Ankle dorsiflexors 4/5. Ankle plantarflexors 5/5. Left Lower Extremity: Hip flexors 4/5. Hip abductors 5/5. Knee flexors 5/5. Knee extensors 4/5. Ankle dorsiflexors 4/5. Ankle plantarflexors 5/5. Bed Mobility/Transfers: Sit to stand supervision Stand to sit supervision Gait: Instructed patient with level surface ambulation of 200 feet requiring standby assist with patient oxygen level going down to 88% on 8 L via NC (oxygen tank guage goes by intervals of 2 L), Gait pattern otherwise unremarkable. Balance: Static Sitting: Normal Dynamic Sitting: Normal Static Standing: Good Dynamic Standing: Good Special Tests: Mobility Limitations Standardized Measure [facility] AM-PAC 6 clicks Basic Mobility Inpatient Short Form: Raw Score: 23 CMS Score:11% deficit Informed Consent/Education: Patient was instructed in purpose of PT consult and plan of care. Agreeable to proceed with established PT POC to achieve personal goals. ASSESSMENT: No shortness of breath during ICU to room 229 walk. Patient now med [facility] level of care needing 7 L of O2 per minute via NC staying above 88% throghout walk thi s afternoon. R iliopsoas muscle re-strain due to repeated getting in and out of bed activities while on admission-- provided patient with leg quality nurse to allow for less painful sit<>supine. Will require services to allow for gradual return to independent mobility level without AD whle maintaining oxygen saturation above 88% on 3 L. Patient presents with clinical signs and symptoms consistent with current/admitting diagnoses that have resulted to mobility limitations, gait instability, generalized weakness, and overall ADL decline as demonstrated by the following impairment level findings: 1. Shortness of breath with desaturation to lower than 88% on 1 L with ambulation tasks Impairments are contributing to the following functional limitations: 1. Increased completion time for mobility ADL performance Patient is assessed as a 59902 low complexity based on the following: History: 62-year-old female with past medical history as indicated above Examination: Demonstrable impairment in strength, balance, and mobility level with underlying impairments and functional limitations as exhibited above Presentation: Evolving Decision Makin low complexity Goals: Goals X1 week 1. Independent gait on level surface with use of no AD for at least 500 feet without report of dyspnea with oxygen saturation above 88% on 3 L. 2. Patient will demonstrate 100% mastery of chest expansion exercises and B UE/LE exercises prior to discharge. Plan of Care/Treatment Plan: 1x/day, 7 days/week x 1 week. Plan of care has been reviewed with the COMMUNITY SERVICE SPECIALIST providing the service under Physical Therapy direction. Initiate Physical Therapy intervention for pain management as needed, strengthening, bed mobility, transfers, gait, stairs, balance training, and use of assistive device. Suggested THERA EX: Chest expansion exercises with shoulder flexion and extension with DBE x 5 Chest expansion exercises with shoulder hor abd/add with DBE x 5 Slow sit to stand x 5 DISCHARGE RECOMMENDATIONS: [] Home with no services [] [X] Home with services. HH PT for home safety evaluation and energy conservation techniques. [] Home with outpatient PT [] [] SNF for continued rehabilitation [] [] [facility] [] [] SNF versus LTC based on ability to participate and progress [] TREATMENT CODE/TIME: 84312 x 20 minutes for 1 unit, 13984 x 28 minutes for 2 units beginning at 12:49 PM. Thank you for the opportunity to participate in the care of this patient. Evon Bryant PT, DPT, CLT [facility], [place]
[2023-05-22] MEDS: dilTIAZem 30 MG TAB PO ×2 (13:55→22:17)
[2023-05-22] MEDS: Mirtazapine 15 MG TAB 60 MG PO (20:23)
[2023-05-23] VITALS (20 sets, daily range): BP systolic 118–143; BP diastolic 73–80; PULSE 69–96; RESP 2–18; TEMP 35.3–37.5; O2SAT 18–98
[2023-05-23] MEDS: PIPERACILLIN/TAZO 4.5 GM in Normal Saline 100 ML IVPB ×4 (00:08→21:36)
[2023-05-23] MEDS: guaiFENesin 200 MG/10 ML CUP PO ×5 (06:09→20:04)
[2023-05-23] MEDS: dilTIAZem 30 MG TAB PO ×3 (06:09→21:44)
[2023-05-23] MEDS: Levothyroxine 200 MCG TAB PO (06:09)
[2023-05-23 06:54] LABS: Abs Immature Grans 0.05 10^3/uL (0.0-0.06); Absolute Basophil Count 0.01 10^3/uL (0.0-0.2); Absolute Lymphocyte Count 1.05 10^3/uL (1.2-3.4); Absolute Monocyte Count 0.33 10^3/uL (0.1-0.8); Absolute Neutrophil Count 7.31 10^3/uL (1.2-6.7); Basophils % 0.1; HGB 12.3 g/dL (11.2-15.7); Immature Grans % 0.6; MCH 27.5 pg (27.0-33.0); MCHC 31.5 % (32.0-36.0); MCV 87 fL (80-95); MPV 9.7 fL (8.0-11.0); Monocytes % 3.8; Neutrophils % 83.5; Platelet Count 252 10^3/uL (130-400); RBC 4.47 10^6/uL (3.93-5.22); RDW 15.2 % (11.7-14.6); RDW-SD 48.9 fL; WBC 8.75 10^3/uL (4.4-10.8)
[2023-05-23 07:09] LABS: Anion Gap 9.5 mmol/L (3-11); BUN 12 mg/dL (7-18); CO2 32.5 mmol/L (21.0-32.0); CREATININE 0.9 mg/dL (0.55-1.02); Calcium 9.2 mg/dL (8.5-10.1); Chloride 98 mmol/L (98-107); Estimated GFR 71.39 (mL/min/1.73m2); Glucose 113 mg/dL (74-106); Magnesium 2.2 mg/dL (1.8-2.4); Potassium 3.4 mmol/L (3.5-5.1); Sodium 140 mmol/L (136-145)
[2023-05-23] MEDS: Albuterol/Ipratropium 3 ML UPD VIAL UPD ×4 (07:57→21:23)
[2023-05-23] MEDS: Tiotropium/Olodaterol 10 PUFF INHALER 2 PUFF IH (07:57)
--- NOTE | 2023-05-23 08:09 | RESPIRATORY ---
Pt states her baseline O2 needs are 2L at rest, 3L with ambulation. DME:
[2023-05-23] MEDS: Polyethylene Glycol 3350 17 GM PACKET PO (08:34)
[2023-05-23] MEDS: methylPREDNISolone SUCC 40 MG VIAL IVP (08:37)
[2023-05-23] MEDS: Spironolactone 25 MG TAB PO (08:38)
[2023-05-23] MEDS: Furosemide 20 MG/2 ML VIAL IVP ×2 (08:38→15:41)
[2023-05-23] MEDS: Pantoprazole 40 MG VIAL IVP (08:38)
[2023-05-23] MEDS: Docusate Sodium 100 MG/10 ML CUP PO ×3 (08:39→20:04)
[2023-05-23] MEDS: Enoxaparin 40 MG/0.4 ML SYR SC ×2 (08:40→20:05)
[2023-05-23] MEDS: Normal Saline Flush 10 ML SYR IVP ×2 (08:41→21:37)
[2023-05-23] MEDS: Methadone Liquid 10 MG/ML 98 MG PO (09:29)
--- NOTE | 2023-05-23 10:23 | PTTR_ITS ---
Date of service: 05/23/23 Time of Service: 09:50 PT Notes Visit Reasons: pneumonia,HCAP Inpatient Physical Therapy Treatment Note [facility] Date: 05/23/23 PRECAUTIONS: Fall, standard, activity as tolerated SUBJECTIVE: Patient reports feeling much better today, hopes to go home soon. OBJECTIVE: Patient is found standing up in her room, working on her phone. Nasal cannula in place delivering 4L/min supplemental O2. ? PAIN: none reported VITALS: ? Pre-Treatment: SaO2 94% on 4L. ? Post-Treatment: SaO2 92% on 4L. ? ? BED MOBILITY/TRANSFERS? Rolling L/R: independent Supine-sit: independent ? Sit-supine: independent ? Sit-stand: independent ? Stand-sit: independent ? Bed-Chair: independent ? Chair-bed: independent ? Therapeutic Exercises ([id number]): Direct one-on-one instruction in therapeutic exercises to develop strength, endurance, range of motion and flexibility. ? Exercises: * instructed patient on self mobilization of first rib * reviewed HEP with patient including full range shoulder flexion with pursed lip breathing, shoulder horizontal abduction with pursed lip breathing, single arm overhead sidebending with diaphragmatic breathing, and seated book openers with diaphragmatic breathing Ambulation ? Assistive Device: none ? Weight bearing: full Assist: SBA? Distance:? 300 feet ? Deviation: wide MANPREET, reduced step height, reduced step length, reduced rasheed, absent arm swing. NO LOB, minimal shortness of breath, SaO2 maintained at or above 88%. Stairs: Patient ascends and descends 2 six inch stairs and 3 four inch stairs with bilateral hand rails and SBA.? Provided skilled instruction in proper exercise performance Provided skilled manual cues to facilitate proper muscle recruitment and/or form. ASSESSMENT:? Patient tolerates therapy well, recovers from SaO2 88% to 92% in 90 seconds PLAN: Continue global strengthening per plan of care until patient is medically cleared for discharge. TREATMENT CODE/TIME: 30 minutes beginning at 9:50
--- NOTE | 2023-05-23 10:30 | CMPROGNOTE_ITS ---
Date of service: 05/23/23 Time of Service: 10:30 Care Management Progress Note Progress Note Text Progress Note Text: S/O: Laurence was sitting up in a chair when CM met with her. She engaged easily with CM and seemed to be in good spirits. Laurence had verbalized that she wanted to be discharged home today, however the provider felt she needed another day or two of inpatient care. Her oxygen need has only been at baseline for a few hours. Subjectively, she stated that she feels much improved. She reported to CM that the provider informed her that the redness and swelling on her lower extremities is more likely from fluid retention than from infection (cellulitis). She stated that she is being given Lasix and that she feels there has been improvement. A: 62 year old female admitted to [facility] 05/16/23 for HCAP P: Frieda will discharge home when medically cleared with new home health services for PT. She will follow up with PCP and plan of care as described and transport with family. CM roxi continues to follow and assess for ongoing discharge concerns.
--- NOTE | 2023-05-23 10:38 | PGE_ITS ---
Date of Service Date of service: 05/23/23 Time of Service: 10:38 Assessment and Plan Assessment and plan (1) Acute on chronic respiratory failure with hypoxemia: Status: Acute Assessment and plan: Secondary to recurrent aspiration event superimposed on underlying COPD. Patient remains on a clear liquid diet and seems to be tolerating this. Patient needs to have an EGD and probably esophageal dilatation of her distal esophageal stricture. Will discuss her case further with GI today. She will need to recover from her acute respiratory event prior to any endoscopy. She would be considered too high risk for endoscopy here at [facility] and therefore would need referral to either [facility] or [facility]. I will try to advance her diet today to pureed foods and thin liquids. continue antibiotics, change iv steroids to oral prednisolone, encourage use of IS and acapella. Will give mucinex to try to thin her secretions. Continue empiric treatment with Zosyn day #4, will continue for total of 5 days. First dose was given on the evening of May 20. Urine Legionella and urine strep antigens were negative. Mycoplasma is pending at this time. WBCs are normal at 7600 in spite of her being on steroids and being treated for pneumonia. Procalcitonin level is less than 0.1 and has remained normal since admission. CRP is also normal at 0.05. Professional time spent interviewing and examining patient, discussion of goals of care with hospital team (care management, nursing and consulting professionals) was 35 minutes. (2) Pneumonia: Status: Acute Assessment and plan: as above. Will get follow up CXR prior to her dc home. Qualifiers: Pneumonia type: aspiration pneumonia Aspiration pneumonia type: due to regurgitated food Laterality: bilateral Lung location: upper lobe of lung Qualified Code(s): J69.0 - Pneumonitis due to inhalation of food and vomit (3) Aspiration into airway: Status: Acute Assessment and plan: As above. Recurrent. MBBS in 08/2022 showed a barium tablet stuck in the distal esophagus with reflux of fluid above it. When she has recovered from her acute respiratory event, she will need GI referral for EGD, possible dilatation of her lower esophagus Qualifiers: Encounter type: initial encounter Qualified Code(s): T17.908A - Unspecified foreign body in respiratory tract, part unspecified causing other injury, initial encounter (4) COPD (chronic obstructive pulmonary disease): Status: Chronic Assessment and plan: As above Qualifiers: COPD type: COPD with acute lower respiratory infection Qualified Code(s): J44.0 - Chronic obstructive pulmonary disease with (acute) lower respiratory infection (5) Esophageal abnormality: Status: Acute Assessment and plan: As above. I will call [facility] and discuss setting her up for EGD CARISSA. Preferably before her dc home. (6) Bilateral leg edema: Status: Acute Assessment and plan: unclear as to etiology but suspect underlying RAQUEL, she does snore at night. She has never had a PSG although it has been recommended to her by [facility] account contact associate. She had an echocardiogram done in August 2022 which showed normal LV and RV size and function w/ no valvular abnormalities. PA pressures could not be assessed as patient had only trace of TR. No mention was made as to her diastolic function. I will continue diuretics for now as this seems to have helped w/ improving her oxgenation. She may have been volume overloaded. (7) Hypothyroid: Status: Chronic Assessment and plan: Continue current dose of levothyroxine. Qualifiers: Hypothyroidism type: acquired Qualified Code(s): E03.9 - Hypothyroidism, unspecified (8) GERD (gastroesophageal reflux disease): Status: Chronic Assessment and plan: now on iv protonix twice a day. Will arrange GI consult once her respiratory status improves Qualifiers: Esophagitis presence: esophagitis presence not specified Qualified Code(s): K21.9 - Gastro-esophageal reflux disease without esophagitis (9) Constipation: Status: Acute Assessment and plan: increase docusate to 100 mg tid, add senna daily and trial of Relistor and dulcolax, if no results then proceed w/ BM. I also increased her Miralax to bid Qualifiers: Constipation type: drug induced constipation Qualified Code(s): K59.03 - Drug induced constipation (10) Opioid use disorder, severe, on maintenance therapy: Status: Chronic Assessment and plan: Continue methadone (11) On deep vein thrombosis (DVT) prophylaxis: Status: Acute Assessment and plan: SC enoxaparin (12) Discharge planning issues: Status: Acute Assessment and plan: Full code Transferred to the ICU on 05/19/23. When Dr. Damian transferred the patient to ICU, she called [facility] and [facility] and they did not have any bed capacity. At this point she seems to be improving significantly enough that she does not require transfer I anticipate she will be ready for dc home in the next 24 to 48 hours Subjective Subjective Interval history since last seen: Patient states she has a moist cough and has been bringing up more sputum. She denies any acute dyspnea chest pain or abdominal pain. No nausea or vomiting. She has been moving her bowels. Exam Narrative Exam Narrative: Obese middle-aged white female who is alert and oriented person place time circumstance walk around the room wearing regular nasal cannula. At 4 L/min Lungs still with coarse rhonchi and expiratory wheezes but better airflow today Heart is regular rate and rhythm Abdomen obese soft nontender with normal bowel sounds Legs still with 2+ edema some faint erythema of the pretibial surfaces bilaterally Objective Last Vital Signs Temp 36.4 C L 05/23/23 07:44 Pulse 96 H 05/23/23 08:27 Resp 17 05/23/23 08:27 BP 136/78 05/23/23 07:44 Pulse Ox 98 05/23/23 08:27 Laboratory Results - last 24 hr 05/18/23 05/23/23 09:01 05:56 WBC 8.75 RBC 4.47 Hgb 12.3 Hct 39.0 MCV 87 MCH 27.5 MCHC 31.5 L RDW 15.2 H Plt Count 252 MPV 9.7 Immature Gran % 0.6 Neutrophils % 83.5 Lymphocytes % 12.0 Monocytes % 3.8 Eosinophils % 0.0 Basophils % 0.1 Nucleated RBC % 0.0 Absolute Neutrophils 7.31 H Absolute Lymphocytes 1.05 L Absolute Monocytes 0.33 Absolute Eosinophils 0.00 Absolute Basophils 0.01 Sodium 140 Potassium 3.4 L Chloride 98 Carbon Dioxide 32.5 H Anion Gap 9.5 BUN 12 Creatinine 0.9 Est GFR (CKD-EPI 2020) 71.39 Glucose 113 H Calcium 9.2 Magnesium 2.2 M. pneumoniae Source Sputum M. pneumoniae (PCR) Negative Time Spent with Patient Time Spent with Patient: 35-49 minutes Time was spent: preparing to see the patient(eg.review tests), ordering medications,tests, procedures, referring, communicating with other health career law clerk, indepentently interpreting results, counseling the patient and care coordination
[2023-05-23] MEDS: Potassium Chloride Liquid 20 MEQ PKT PO (11:03)
[2023-05-23] MEDS: prednisoLONE SOD PHOS. Soln. 3 MG/ML 40 MG PO (11:14)
[2023-05-23] MEDS: Mirtazapine 15 MG TAB 60 MG PO (22:57)
[2023-05-23] MEDS: LORazepam 0.5 MG TAB PO (22:57)
[2023-05-24] VITALS (14 sets, daily range): BP systolic 124–155; BP diastolic 70–80; PULSE 65–94; RESP 2–20; TEMP 35.6–36.5; O2SAT 89–98
[2023-05-24] MEDS: PIPERACILLIN/TAZO 4.5 GM in Normal Saline 100 ML IVPB ×3 (03:55→18:37)
[2023-05-24] MEDS: Levothyroxine 200 MCG TAB PO (05:39)
[2023-05-24 07:21] LABS: Anion Gap 7.9 mmol/L (3-11); BUN 14 mg/dL (7-18); CO2 33.1 mmol/L (21.0-32.0); Calcium 9.2 mg/dL (8.5-10.1); Chloride 100 mmol/L (98-107); Estimated GFR 62.91 (mL/min/1.73m2); Glucose 92 mg/dL (74-106); Magnesium 2.4 mg/dL (1.8-2.4); Sodium 141 mmol/L (136-145)
[2023-05-24] MEDS: guaiFENesin 200 MG/10 ML CUP PO ×4 (08:03→19:38)
[2023-05-24] MEDS: Enoxaparin 40 MG/0.4 ML SYR SC ×2 (08:03→19:38)
[2023-05-24] MEDS: Docusate Sodium 100 MG/10 ML CUP PO ×3 (08:03→19:38)
[2023-05-24] MEDS: Spironolactone 25 MG TAB PO (08:04)
[2023-05-24] MEDS: prednisoLONE SOD PHOS. Soln. 3 MG/ML 40 MG PO (08:06)
[2023-05-24] MEDS: Normal Saline Flush 10 ML SYR IVP ×4 (08:06→19:38)
[2023-05-24] MEDS: Furosemide 20 MG/2 ML VIAL IVP (08:10)
[2023-05-24] MEDS: Pantoprazole 40 MG VIAL IVP (08:11)
[2023-05-24] MEDS: Albuterol/Ipratropium 3 ML UPD VIAL UPD ×4 (08:28→20:24)
[2023-05-24] MEDS: Tiotropium/Olodaterol 10 PUFF INHALER 2 PUFF IH (08:29)
[2023-05-24] MEDS: Methadone Liquid 10 MG/ML 98 MG PO (08:34)
--- NOTE | 2023-05-24 10:14 | CMPROGNOTE_ITS ---
Date of service: 05/24/23 Time of Service: 10:14 Care Management Progress Note Progress Note Text Progress Note Text: S/O: Laurence was sitting up in a chair when HOLLAND met with her. She admitted to being disappointed that once again she was unable to be discharged home today. Shr has been told that her potassium is low and needs to be replenished before she can leave. She is hopeful that tomorrow will find her clinically ready for discharge. Her brother delivered her home O2 concentrator today so she will be able to transport safely with a supply of oxygen. A: 62 year old female admitted to [facility] 05/16/23 for HCAP P: Frieda will discharge home when medically cleared with new home health services for PT. She will follow up with PCP and plan of care as described and transport with family. HOLLAND diane continues to follow and assess for ongoing discharge concerns.
[2023-05-24] MEDS: Potassium Chloride Liquid 20 MEQ PKT 40 MEQ NG (12:53)
--- NOTE | 2023-05-24 14:10 | PTTR_ITS ---
Date of service: 05/24/23 Time of Service: 13:20 PT Notes Visit Reasons: pneumonia,HCAP Inpatient Physical Therapy Treatment Note [facility] Date: 05/24/23 PRECAUTIONS: Fall, standard, activity as tolerated SUBJECTIVE: Patient reports feeling better, anxious to go home, frustrated that she isn't sure when she will be able to. OBJECTIVE: Patient standing in her room, working on her phone. 1.5 L/min O2 via nasal cannula. Agreeable to therapy. ? PAIN: none reported VITALS: monitored by nursing staff? BED MOBILITY/TRANSFERS? Rolling L/R: independent Supine-sit: independent ? Sit-supine: independent ? Sit-stand: independent ? Stand-sit: independent ? Bed-Chair: independent ? Chair-bed: independent ? Therapeutic Exercises ([id number]): Direct one-on-one instruction in therapeutic exercises to develop strength, endurance, range of motion and flexibility. ? Exercises: HEP upgraded as follows: Access Code: [email or web address] URL: [email or web address] Date: 05/24/2023 Prepared by: Danelle Lipscomb Exercises - Seated Shoulder Flexion Full Range - 1 x daily - 7 x weekly - 3 sets - 10 reps - Seated Shoulder Horizontal Abduction - Thumbs Up - 1 x daily - 7 x weekly - 3 sets - 10 reps - Sidelying Open Book Thoracic Rotation with Knee on Foam Roll - 1 x daily - 7 x weekly - 3 sets - 10 reps - Seated Sidebending Arms Overhead - 1 x daily - 7 x weekly - 3 sets - 10 reps - Seated Open Book vs Green Theraband - 1 x daily - 7 x weekly - 1 sets - 10 reps - Standing Anti-Rotation Press vs Green Theraband - 1 x daily - 7 x weekly - 1 sets - 10 reps - Standing Shoulder Row vs Blue Theraband - 1 x daily - 7 x weekly - 1 sets - 10 reps - Standing Low Trap Setting vs Green Theraband at Wall - 1 x daily - 7 x weekly - 3 sets - 10 reps Provided skilled instruction in proper exercise performance Provided skilled manual cues to facilitate proper muscle recruitment and/or form to facilitate safe and correct movement patterns. ASSESSMENT:? Patient tolerates therapy well, is curious to know how each exercise serves her. This clinician answers all questions to patient's satisfaction. PLAN: Continue global strengthening per plan of care until patient is medically cleared for discharge. TREATMENT CODE/TIME: 24 minutes beginning at 13:20
--- NOTE | 2023-05-24 14:15 | PGE_ITS ---
Date of Service Date of service: 05/24/23 Time of Service: 14:15 Assessment and Plan Assessment and plan (1) Acute on chronic respiratory failure with hypoxemia: Status: Acute Assessment and plan: Secondary to recurrent aspiration event superimposed on underlying COPD. Diet advanced to pur?ed foods and thin liquids and she seems to be tolerating this.. Case discussed with GI fellow from [facility], Dr. Tessie Raya, who agreed to set patient up for outpatient follow up in the GI clinic and arrange outpatient EGD. Continue empiric treatment with Zosyn day #5, will discontinue after today. First dose was given on the evening of May 20. Urine Legionella and urine strep antigens were negative. Mycoplasma is pending at this time. WBCs are normal at 7600 in spite of her being on steroids and being treated for pneumonia. Procalcitonin level is less than 0.1 and has remained normal since admission. CRP is also normal at 0.05. Professional time spent interviewing and examining patient, discussion of goals of care with hospital team (care management, nursing and consulting professionals) was 35 minutes. (2) Pneumonia: Status: Acute Assessment and plan: as above. Will get follow up CXR prior to her dc home. Qualifiers: Aspiration pneumonia type: due to regurgitated food Laterality: bilateral Lung location: upper lobe of lung Pneumonia type: aspiration pneumonia Qualified Code(s): J69.0 - Pneumonitis due to inhalation of food and vomit (3) Aspiration into airway: Status: Acute Assessment and plan: As above. Recurrent. MBBS in 08/2022 showed a barium tablet stuck in the distal esophagus with reflux of fluid above it. CURING MACHINE OPERATOR did bedside swallow evaluation on 05/18 and recommended minced/moist solids w/ thin liquids but she was unable to tolerate this but so far has tolerated her advancement of her diet to pureed foods and thin liquids. med should be liquids or crushed. Qualifiers: Encounter type: initial encounter Qualified Code(s): T17.908A - Unspecified foreign body in respiratory tract, part unspecified causing other injury, initial encounter (4) COPD (chronic obstructive pulmonary disease): Status: Chronic Assessment and plan: As above. patient will be sent home on steroid taper and has a follow up w/ pulmonary at [facility] on 06/08. Qualifiers: COPD type: COPD with acute lower respiratory infection Qualified Code(s): J44.0 - Chronic obstructive pulmonary disease with (acute) lower respiratory infection (5) Esophageal abnormality: Status: Acute Assessment and plan: As above. (6) Bilateral leg edema: Status: Acute Assessment and plan: unclear as to etiology but suspect underlying RAQUEL, she does snore at night. She has never had a PSG although it has been recommended to her by [facility] superintendent quarry. She had an echocardiogram done in August 2022 which showed normal LV and RV size and function w/ no valvular abnormalities. PA pressures could not be assessed as patient had only trace of TR. No mention was made as to her diastolic function. I will continue diuretics for now as this seems to have helped w/ improving her oxgenation. She may have been volume overloaded. (7) Hypothyroid: Status: Chronic Assessment and plan: Continue current dose of levothyroxine. Qualifiers: Hypothyroidism type: acquired Qualified Code(s): E03.9 - Hypothyroidism, unspecified (8) GERD (gastroesophageal reflux disease): Status: Chronic Assessment and plan: now on iv protonix twice a day. Will arrange GI consult once her respiratory status improves Qualifiers: Esophagitis presence: esophagitis presence not specified Qualified Code(s): K21.9 - Gastro-esophageal reflux disease without esophagitis (9) Constipation: Status: Acute Assessment and plan: increase docusate to 100 mg tid, add senna daily and trial of Relistor and dulcolax, if no results then proceed w/ BM. I also increased her Miralax to bid Qualifiers: Constipation type: drug induced constipation Qualified Code(s): K59.03 - Drug induced constipation (10) Opioid use disorder, severe, on maintenance therapy: Status: Chronic Assessment and plan: Continue methadone (11) On deep vein thrombosis (DVT) prophylaxis: Status: Acute Assessment and plan: SC enoxaparin (12) Discharge planning issues: Status: Acute Assessment and plan: Full code Transferred to the ICU on 05/19/23. When Dr. Damian transferred the patient to ICU, she called [facility] and [facility] and they did not have any bed capacity. At this point she seems to be improving significantly enough that she does not require transfer I anticipate she will be ready for dc home in the next 24 to 48 hours Subjective Subjective Patient reports: feels better Interval history since last seen: Still with some moist cough now becoming more productive. She is less short of breath. She is now down to 1.5 L/min nasal cannula. Called [facility] and discussed the case with GI fellow Dr. Tessie Raya, who agrees that based on the patient's dysphagia and abnormal modified barium swallow studies that the patient should have an EGD and be referred to the motility clinic at [facility]. She will help facilitate setting up an outpatient follow-up in the GI clinic. Exam Narrative Exam Narrative: Obese middle-aged white female who is alert and oriented person place time circumstance walk around the room wearing regular nasal cannula. At 1.5 L/min Lungs still with coarse rhonchi and expiratory wheezes but better airflow today Heart is regular rate and rhythm Abdomen obese soft nontender with normal bowel sounds Legs still with 2+ edema some faint erythema of the pretibial surfaces bilaterally Objective Last Vital Signs Temp 36.3 C L 05/24/23 11:24 Pulse 65 05/24/23 11:45 Resp 20 05/24/23 11:45 BP 145/78 H 05/24/23 11:24 Pulse Ox 96 05/24/23 11:45 Laboratory Results - last 24 hr 05/24/23 05/24/23 05:55 16:00 Sodium 141 Potassium 3.0 L Cancelled Chloride 100 Carbon Dioxide 33.1 H Anion Gap 7.9 BUN 14 Creatinine 1.0 Est GFR (CKD-EPI 2020) 62.91 Glucose 92 Calcium 9.2 Magnesium 2.4 Time Spent with Patient Time Spent with Patient: 35-49 minutes Time was spent: preparing to see the patient(eg.review tests), ordering medi cations,tests, procedures, referring, communicating with other health property caretaker (nursing, [facility] GI fellow), indepentently interpreting results, counseling the patient and care coordination
[2023-05-24] MEDS: dilTIAZem 30 MG TAB PO ×2 (14:49→22:46)
[2023-05-24] MEDS: Potassium Chloride Liquid 20 MEQ PKT NG (16:05)
[2023-05-24 16:39] LABS: Potassium 4.3 mmol/L (3.5-5.1)
--- NOTE | 2023-05-24 16:56 | CHAPLAIN ---
Jody was sitting at the edge of her bed when I visited, doing a word search. She has been her eight days and is hoping to go home tomorrow. She appears to be tired and bored here. She asked for some christianity reading material and news magazines, so I got those for her.
[2023-05-24] MEDS: Furosemide 40 MG TAB PO (18:37)
[2023-05-24] MEDS: Senna TAB 1 TAB PO (22:46)
[2023-05-24] MEDS: Mirtazapine 15 MG TAB 60 MG PO (22:46)
[2023-05-24] MEDS: LORazepam 0.5 MG TAB PO (22:47)
[2023-05-25] VITALS (8 sets, daily range): BP systolic 120–144; BP diastolic 57–82; PULSE 58–98; RESP 8–20; TEMP 35.5–36.8; O2SAT 87–93
[2023-05-25] MEDS: Levothyroxine 200 MCG TAB PO (06:08)
[2023-05-25] MEDS: PIPERACILLIN/TAZO 4.5 GM in Normal Saline 100 ML IVPB ×3 (06:09→11:42)
[2023-05-25] MEDS: dilTIAZem 30 MG TAB PO ×2 (06:16→13:48)
--- NOTE | 2023-05-25 07:45 | DI.RAD_ITS ---
Exam(s) XR CHEST 2V PA LATERAL EXAM: XR CHEST 2V PA LATERAL CLINICAL HISTORY: follow up pneumonia TECHNIQUE: 2D digital imaging was performed. COMPARISON: CR XR PORTABLE CHEST AP from 05/20/[address] CHEST WO from 05/20/2023 FINDINGS: HEART: Normal size. Aorta: Not dilated. PULMONARY VASCULATURE: Normal. LUNGS: Mildly increased densities persist at both lung bases. PLEURAL SPACE: No pleural effusion or pneumothorax. BONE:Unremarkable degenerative changes and scoliosis in the spine. No compression fractures. Soft tissues: Unremarkable. IMPRESSION: Mild persistent bibasilar densities. DATA REPOSITORY: RADIATION DOSE DELIVERED:
[2023-05-25] MEDS: Albuterol/Ipratropium 3 ML UPD VIAL UPD ×2 (07:46→11:31)
[2023-05-25] MEDS: Tiotropium/Olodaterol 10 PUFF INHALER 2 PUFF IH (07:48)
[2023-05-25] MEDS: Docusate Sodium 100 MG/10 ML CUP PO ×2 (08:01→13:47)
[2023-05-25] MEDS: guaiFENesin 200 MG/10 ML CUP PO ×3 (08:01→15:20)
[2023-05-25] MEDS: Spironolactone 25 MG TAB PO (08:02)
[2023-05-25] MEDS: Enoxaparin 40 MG/0.4 ML SYR SC (08:02)
[2023-05-25] MEDS: Furosemide 40 MG TAB PO ×2 (08:02→15:20)
[2023-05-25] MEDS: Polyethylene Glycol 3350 17 GM PACKET PO (08:03)
[2023-05-25] MEDS: Potassium Chloride Liquid 20 MEQ PKT NG (08:03)
[2023-05-25] MEDS: Methadone Liquid 10 MG/ML 98 MG PO (08:03)
[2023-05-25] MEDS: prednisoLONE SOD PHOS. Soln. 3 MG/ML 40 MG PO (08:04)
[2023-05-25] MEDS: Pantoprazole 40 MG VIAL IVP (08:04)
[2023-05-25] MEDS: Normal Saline Flush 10 ML SYR IVP (08:05)
[2023-05-25 11:00] LABS: Abs Immature Grans 0.08 10^3/uL (0.0-0.06); Absolute Basophil Count 0.02 10^3/uL (0.0-0.2); Absolute Eosinophil Count 0.03 10^3/uL (0.0-0.7); Absolute Lymphocyte Count 1.49 10^3/uL (1.2-3.4); Absolute Monocyte Count 0.46 10^3/uL (0.1-0.8); Absolute Neutrophil Count 8.17 10^3/uL (1.2-6.7); Basophils % 0.2; Eosinophils % 0.3; HCT 44.5 % (36.0-46.0); HGB 13.6 g/dL (11.2-15.7); Immature Grans % 0.8; Lymphocytes % 14.5; MCHC 30.6 % (32.0-36.0); MCV 89 fL (80-95); MPV 9.2 fL (8.0-11.0); Monocytes % 4.5; Neutrophils % 79.7; Platelet Count 294 10^3/uL (130-400); RBC 5.03 10^6/uL (3.93-5.22); RDW 15.7 % (11.7-14.6); RDW-SD 50.8 fL; WBC 10.25 10^3/uL (4.4-10.8)
[2023-05-25 11:11] LABS: Anion Gap 7.1 mmol/L (3-11); BUN 14 mg/dL (7-18); CO2 33.9 mmol/L (21.0-32.0); CREATININE 1.3 mg/dL (0.55-1.02); Calcium 9.4 mg/dL (8.5-10.1); Chloride 98 mmol/L (98-107); Estimated GFR 45.92 (mL/min/1.73m2); Glucose 99 mg/dL (74-106); Potassium 3.4 mmol/L (3.5-5.1); Sodium 139 mmol/L (136-145)
[2023-05-25 11:12] LABS: Magnesium 2.1 mg/dL (1.8-2.4)
--- NOTE | 2023-05-25 13:25 | DSE_ITS ---
Date of service: 05/25/23 Time of Service: 13:25 DS: Diagnosis Discharge Diagnosis (1) Acute on chronic respiratory failure with hypoxemia: Status: Acute Asessment and Plan: Patient was admitted 05/16/23 with acute hyoxemic respiratory failure due to pneumonia. See admission H&P for details. She was begun on broad spectrum antibiotics w/ vancomycin, cefepime and azithromycin, aerosolized bronchodila tors, and supplemental oxygen. She was admitted to the med/surg floor. She was also found to have bilateral lower extremity edema/cellulitis CTA chest ruled out a P.E. but demonstrated left upper lobe and lingular infiltrate. Vancomycin was stopped when her MRSA screen came back negative. She was begun on corticosteroids and scheduled bronchodilators. She had an aspiration event in which a rapid response was called on 05/19 when she went into acute respiratory distress and required to ICU and placed on non-rebreather mask and given repeated aerosol treatments. Patient has known dysphagia from lower esophageal source felt to be d/t GERD, possible stricture diagnosed on modified barium swallow done 09/06/22. Patient was evaluated by BENCH WORKER HELPER and recommended for moist and minced solids and thin liquids but she was not even ablt to tolerate this. She was put on liquid diet, meds were crushed or switched to liquids. She was placed on high flow nasal cannula. Pulmonary consult was obtained and was felt to have aspiration pneumonitis. Patient was switched to Zosyn from cefepime when her inflammatory markers were not improving and clinically she was not improving. She did improve on Zosyn and completed 5 1/2 days of therapy w/ Zosyn w/ repeated normal procalcitonin levels, and normalization of her WBC and improvement in her oxygen requirements. Blood and urine cultures came back no growth. Sputum culture came back normal olivia. At the time of her discharge she was back to her baseline oxygen requirement of 1.5 lpm. Patient was discharged on tapering dose of prednisolone. She has a f ollow up already scheduled w/ pulmonary at [facility] FOR 06/08. Chest x-ray at the time of discharge showed improvement in her infiltrate but still has some mild increased density persisting at the lung bases. However at the time of discharge procalcitonin levels have been normal x 3 sets. And a white blood cell count has remained normal. She was not discharged on any further antibiotics. (2) Pneumonia: Status: Resolved Asessment and Plan: See above (3) Aspiration into airway: Status: Acute Asessment and Plan: Suspect esophageal dysmotility versus stricture from chronic GERD. [facility] gastroenterology was contacted and case was discussed with Dr. Tessie Raya who recommend that she be set up for outpatient follow-up in the GI clinic. Dr. Raya indicated that she would facilitate this and have the GI clinic call the patient. She agreed the patient needs an EGD and referral to the GI motility program. (4) COPD (chronic obstructive pulmonary disease): Status: Chronic Asessment and Plan: Patient be discharged on her home medication of Symbicort along with as needed use of DuoNeb. Patient will be sent home on tapering dose of prednisolone over the next 2 weeks. Spiriva was prescribed for her. (5) Esophageal abnormality: Status: Acute Asessment and Plan: As above (6) Bilateral leg edema: Status: Acute Asessment and Plan: Echocardiogram was not performed during this hospitalization but she had had an echocardiogram earlier this year showed normal left ventricular size and thickness with no wall motion abnormalities and normal LVEF of 60% as well as normal RV size and function and no structural or hemodynamically significant valvular disease. Unclear as to the etiology of her bilateral edema possibly chronic venous insufficiency. Recommend patient wear thigh-high ALEXI hose. She was treated with diuretics and discharged home on Lasix and spironolactone with instruction to have follow-up labs done in the next week including BMP and magnesium. While in the hospital she did receive IV Lasix which caused some hypokalemia which was corrected. She was discharged home with some potassium supplementation with liquid potassium 20 mill equivalents daily. (7) Hypothyroid: Status: Chronic Asessment and Plan: TSH was checked this admission found to be normal at 0.63 she was kept on her usual dose of levothyroxine to 200 mcg daily. (8) GERD (gastroesophageal reflux disease): Status: Chronic Asessment and Plan: Patient is to continue her Dexilant and follow-up with GI clinic. (9) Constipation: Status: Acute Asessment and Plan: Constipation resolved with stool softeners and laxatives. Patient should remain on docusate and senna. (10) Opioid use disorder, severe, on maintenance therapy: Status: Chronic Asessment and Plan: Patient was kept on her usual home dose of methadone. (11) Discharge planning issues: Status: Resolved Asessment and Plan: Patient received physical therapy while in the hospital and improve her endurance and strength and gait. She was in dependently ambulating at time of discharge but home physical therapy was recommended and prescribed. Discharge Plan Disposition Patient Disposition: Home W/Home Health Services Condition: Improving Discharge Details Reason For Visit: pneumonia,HCAP Admit Date/Time: 05/16/23 11:35 Admit Provider: Kvng Wilkinson Attending Provider: Kvng Wilkinson Primary Care Provider: Andrzej Kimbrough Home Meds and New Rx's Prescriptions: New spironolactone 25 mg Tablet 25 mg PO DAILY Qty: 30 0RF prednisolone sodium phosphate 15 mg/5 mL (3 mg/mL) Solution See Rx Instructions .ROUTE .COMPLEX Qty: 237 0RF Rx Instructions: 40 mg/d x 5 d, then 30 mg/d x 3 d, then 20 mg/d x 3 d, then 10 mg/d x3 d then off sennosides [Senokot] 8.6 mg Tablet 8.6 mg PO HS Qty: 30 0RF furosemide [Lasix] 20 mg tablet 20 mg PO BID Qty: 60 0RF potassium chloride 20 mEq/15 mL liquid 20 meq PO DAILY Qty: 450 0RF tiotropium bromide [Spiriva with HandiHaler] 18 mcg capsule, w/inhalation device 1 cap inhalation DAILY Qty: 30 0RF Rx Instructions: puncture 1 cap using device; one dose = 2 inhalations Continued methadone 10 MG/5 ML solution 98 mg PO DAILY mirtazapine 45 MG tablet 45 mg PO DAILY levothyroxine 200 MCG tablet 200 mcg PO DAILY zolpidem 5 MG tablet 5 mg PO HS mirtazapine 15 MG tablet 15 mg PO DAILY docusate sodium [Dulcolax Stool Softener (dss)] 100 MG capsule 200 mg PO DAILY Hold Instructions: Pt Stopped/Never Started Patient Comments: has not taken in the past week. simvastatin 10 MG tablet 10 mg PO DAILY promethazine [Phenadoz] 25 MG suppository 25 mg IA PRN dexlansoprazole [Dexilant] 60 mg Capsule,Biphase Delayed Releas 1 tab PO DAILY diltiazem HCl 30 mg tablet 30 mg PO Q8H Patient Comments: TAKE ONE TABLET BY MOUTH EVERY 8 HOURS lorazepam 1 MG tablet 1 mg PO Q6H PRN PRNQty: 14 0RF budesonide-formoterol [Symbicort] 160-4.5 mcg/actuation Hfa Aerosol Inhaler 2 puff inhalation BID Qty: 0 0RF albuterol sulfate 90 mcg/actuation HFA aerosol inhaler 2 puff inhalation QID PRNQty: 8.5 0RF Discontinued lisinopril 2.5 mg Tablet 1 tab PO DAILY Discharge Instructions Instructions: Spironolactone (By mouth), Furosemide (By mouth), Diet for Stomach Ulcers and Gastritis (GEN), GERD (Gastroesophageal Reflux Disease) (DC), Leg Edema (ED), Esophagitis (DC) Additional Instructions: You have been treated for acute respiratory failure secondary to aspiration pneumonitis. You have been put on a tapering course of prednisolone to help calm the inflammation of your lungs. You should continue to use your DuoNeb vincenzo atments at home 4 times a day and more often as needed for acute wheezing or bronchospasm. Please continue your Symbicort. You have also been put on diuretics to help control your leg edema. You were started on Lasix and spironolactone was added. A potassium supplement has been added to correct low potassium levels. You were treated with a course of intravenous antibiotics and at this time no longer require antibiotics. Your dysphagia is felt to be secondary to esophageal reflux disease and you should follow-up with a GI specialist at [facility]. We made a phone call and discussed her case with the GI fellow on-call Dr. Tessie Raya, who is agreed that you need to follow-up in the GI clinic at [facility] to be set up for an EGD. You should continue to follow the instructions from the speech and language pathologist regarding diet and swallowing strategies. You should be on a pur?ed diet along with thin liquids. Please remain upright for 90 minutes after eating. You should sleep in a semielevated position with the head of your bed 30 degrees or higher. Please avoid meals or snacks within 4 hours of bedtime. Continue Dexilant this helps reduce acid secretion from your stomach. It is recommended that you get follow- up labs within the next week including a BMP and magnesium level to check your electrolytes and kidney function. You should hear from the GI department at [facility] within the next week as to the time and date of your appointment. Please keep your previously with the pulmonary department at [facility]. Please see your primary care provider within the next week. Stand Alone Forms: Nursing Discharge Form Referrals: GASTROENTEROLOGY,[facility] [OTHER] - (Esophageal narrowing on barium swallow with barium pill getting stuck; recurrent aspiration events. Referral faxed on 05/19/23 They need to speak to you. Please call them so you can make an appoint) PULMONOLOGY,[facility] [OTHER] - (Please keep your prior appointment for June 08, 2023.) Andrzej Kimbrough DO [Primary Care Provider] - 05/31/23 1:00 am (Patient needs follow-up labs within a week including BMP and magnesium level to check electrolytes and renal function since initiation of diuretics.) Activity:: Activity as Tolerated Equipment/Supplies:: No Equipment Needed Diet:: Low Sodium Discharge Orders Discharge Orders: Discharge Order (Routine); Ordered 05/25/23 Ordered By: Kvng Wilkinson Discharge Data Discharge Date/Time-TO BE ENTERED AT DEPARTURE: 05/25/23 15:26 DS: Summary Time Spent with Patient providing and/or coordinating discharge services: Greater than 30 minutes Specific discharge activities: Interview/exam of patient; review of discharge instructions, completion of prescriptions/discharge instructions; discussion w/ nursing and CM; documentation of hospital visit Status at Discharge Functional status at discharge: independent ambulation Overall status at discharge: patient is progressing back to baseline Mental Status: mental status grossly normal Speech and Movement: speech and movement normal Mood: congruent mood Affect: normal affect Exam Narrative Exam Narrative: Laurence is up walking around the room she is wearing oxygen at 1.5 L/min per nasal cannula. She is not short of breath with normal ADL performance. Lungs still with coarse scattered expiratory wheezes no rales Heart regular rate and rhythm Lower extremities 1+ pitting edema. She has mild dependent rubor but no increased warmth or tenderness. Psych Mental Status: mental status grossly normal Speech and Movement: speech and movement normal Mood: congruent mood Affect: normal affect DS: Data Vitals/I&O Vitals and I&O: Vital Signs Temperature 36.5 C 05/25/23 11:20 Temperature Source Tympanic 05/25/23 11:20 Pulse 83 05/25/23 11:38 Pulse Rhythm Regular 05/25/23 07:13 Pulse 111 H 05/22/23 13:22 Respiratory Rate 16 05/25/23 11:31 Respiratory Effort Normal, Non-Labored 05/25/23 07:13 Respiratory Depth Normal 05/25/23 07:13 Respiratory Pattern Normal 05/25/23 07:13 Blood Pressure 128/57 L 05/25/23 11:20 Blood Pressure Mean 90 05/22/23 13:22 Blood Pressure Position Supine 05/22/23 07:33 Pulse Oximetry 88 L 05/25/23 11:31 Oxygen Delivery Method Nasal Cannula 05/25/23 11:31 Oxygen Flow Rate 1.5 05/25/23 11:31 Fraction of Inspired Oxygen (FIO2) 33 05/23/23 06:22 Pain Level 0 05/25/23 11:20 Comment nurse notified. 05/22/23 23:29 Intake & Output 05/24/23 05/25/23 05/25/23 23:59 11:59 23:59 Intake Total 820 / 1820 1000 / 1000 Output Total 3800 / 6700 1800 / 1800 Balance -2980 / -4880 -800 / -800 Weight 114.98 kg 117.48 kg Intake: IV 100 / 300 200 / 200 Oral 720 / 1520 800 / 800 Output: Urine 3800 / 6700 1800 / 1800 Other: Urine Color Yellow Pale Yellow Urine Appearance Clear Clear Urine Odor None None Voiding Methods Toilet Data Completed and Pending Labs on day of discharge: Labs from last 24 hours 05/25/23 05/24/23 10:50 16:18 WBC 10.25 RBC 5.03 Hgb 13.6 Hct 44.5 MCV 89 MCH 27.0 MCHC 30.6 L RDW 15.7 H Plt Count 294 MPV 9.2 Immature Gran % 0.8 Neutrophils % 79.7 Lymphocytes % 14.5 Monocytes % 4.5 Eosinophils % 0.3 Basophils % 0.2 Nucleated RBC % 0.0 Absolute Neutrophils 8.17 H Absolute Lymphocytes 1.49 Absolute Monocytes 0.46 Absolute Eosinophils 0.03 Absolute Basophils 0.02 Sodium 139 Potassium 3.4 L 4.3 D Chloride 98 Carbon Dioxide 33.9 H Anion Gap 7.1 BUN 14 Creatinine 1.3 H Est GFR (CKD-EPI 2020) 45.92 Glucose 99 Calcium 9.4 Magnesium 2.1 PFSH All Active Problems (Updated 05/25/23 @ 16:08 by Kvng Wilkinson MD) Bilateral leg edema (Acute) Constipation (Acute) Esophageal abnormality (Acute) Aspiration into airway (Acute) Acute on chronic respiratory failure with hypoxemia (Acute) On deep vein thrombosis (DVT) prophylaxis (Acute) Opioid use disorder, severe, on maintenance therapy (Chronic) GERD (gastroesophageal reflux disease) (Chronic) Hypothyroid (Chronic) Bilateral lower leg cellulitis (Acute) Anxiety (Chronic 03/27/14) COPD (chronic obstructive pulmonary disease) (Chronic) Recurrent aspiration pneumonia (Acute) Bronchitis (Acute) Distal radius fracture (Acute) Medical History Abnormal auditory perception (03/29/14) Trouble in sleeping Depression History of drug abuse Irregular heart rhythm Hypertension Surgical History History of thyroidectomy Social History Smoking/Tobacco Use Status: Former Tobacco Use Quit Date: 06/13/99 Smoking risk assessment performed?: Yes Alcohol Intake: never Drug use: Current Sobriety Substance use type: former substance user Housing: house Current gender identity: female Do you feel safe at home: Yes Do you feel safe in your relationship?: Yes Time Spent with Patient Time Spent with Patient: 45-69 minutes Time was spent: preparing to see the patient(eg.review tests), ordering medications,tests, procedures, referring, communicating with other health in home caregiver, indepentently interpreting results, counseling the patient and care coordination
--- NOTE | 2023-05-25 13:27 | PDOC.HHF2F_ITS ---
Home Health Referral Home Health Orders Clinical synopsis of why skilled professionals are needed: Patient was admitted to the hospital with acute hypoxic respiratory failure secondary to underlying COPD with superimposed aspiration pneumonitis. Patient was initially admitted to the medical/surgical floor but after second aspiration event required transfer to the intensive care unit where she was treated with high flow nasal cannula, IV corticosteroids, IV antibiotics including Zosyn. Patient improved and was able to be titrated back down to her baseline home oxygen level of 2 L/min or less. Patient worked with physical therapy and was doing quite well ambulating independently. It was recommended that she continue to receive home health services to include home physical therapy to improve her strength and endurance as well as to improve her gait stability. She is being discharged on tapering dose of prednisolone. Diuretics were added to her regimen. Patient is to have outpatient follow-up BMP and magnesium level in a week. Referral has been requested for GI services at [facility] to see her as an outpatient for an EGD to evaluate her GERD. Registered Nurse: Check all that apply Instruct on new or changed medication(s)/assess compliance: Ordered Assess for exacerbation of medical condition, instruct patient/caregivers on signs and symptoms to report for early detection: Ordered Other: Monitor respiratory status with recent changes in her inhalers including the addition of Spiriva as well as tapering dose of prednisolone. Monitor response to diuretics for treatment of her bilateral leg edema. Patient will need repeat BMP and magnesium in 1 week. Please request order from PCP Physical Therapist: Check all that apply Increase strength & endurance for safe mobility at home: Ordered To design/establish home maintenance program: Ordered Better Breathing Program: Ordered Speech Therapist: Check all that apply For swallow evaluation/therapy due to dysphagia: Ordered Rd Scientist: Assist with community resources: Ordered Home Bound Status Patient has a condition such that leaving home is medically contraindicated (Describe): Recent hypoxic respiratory failure secondary to aspiration. Patient becomes significantly dyspneic with any prolonged activity that would require leaving her home. Describe why leaving home would require a considerable and taxing effort: Requires frequent rest periods and Oxygen Encounter Date and Reason: I certify that a FTF encounter for this patient was performed on May 25, 2023 and that such encounter was related to the primary reason the patient requires home health services. The encounter was conducted in the following manner: * By me as the certifying physician, MENTAL RETARDATION AIDE, PA or * By an inpatient physician, MENTAL RETARDATION AIDE or PA during an inpatient stay who communicated findings to me, Certification And Authentication I certify that I composed the above information based on my clinical judgment relating to this patient's medical condition and, if applicable, clinical findings communicated to me by the NPP or inpatient physician who performed the FTF encounter. Name of Provider that will be monitoring home health services: Andrzej Kimbrough
--- NOTE | 2023-05-25 13:42 | PTTR_ITS ---
Date of service: 05/25/23 Time of Service: 13:10 PT Notes Visit Reasons: pneumonia,HCAP Inpatient Physical Therapy Treatment Note [facility] Date: 05/25/23 PRECAUTIONS: Standard, activity as tolerated. SUBJECTIVE: Patient reports being excited to go home. OBJECTIVE: Sitting up in bedside chair. Agreeable to therapy.? PAIN: patient reports cramping sensation around ribcage with book openers vs resistance band today. Encourage patient to listen to her body, reduce or discard resistance for a day or two to limit cramping, then resume resistance. VITALS: monitored by nursing staff ? BED MOBILITY/TRANSFERS? Rolling L/R: independent Supine-sit: independent ? Sit-supine: independent ? Sit-stand: independent ? Stand-sit: independent ? Bed-Chair: independent ? Chair-bed: independent Provided skilled cues and instruction on performance and technique throughout. ? Therapeutic Exercises ([id number]): Direct one-on-one instruction in therapeutic exercises to develop strength, endurance, range of motion and flexibility. ? Exercises: Reviewed patient's established HEP as follows: * Resisted book openers vs RED theraband (adjusted today due to patient report of cramping with green theraband) * rows vs blue theraband * anti rotation press vs green theraband * low trap setting against wall vs green theraband. Provided skilled instruction in proper exercise performance Provided skilled manual cues to facilitate proper muscle recruitment and/or form. ASSESSMENT:? patient tolerates therapy well, reports no increased fatigue or discomfort, no increased shortness of breath. PLAN: Continue global strengthening per plan of care until patient is medically cleared for discharge. TREATMENT CODE/TIME: 18 minutes beginning at 13:10
[2023-05-25] MEDS: Potassium Chloride Liquid 20 MEQ PKT 40 MEQ PO (13:47)
--- NOTE | 2023-05-25 15:17 | PDOC.CMDIS ---
Date of service: 05/25/23 Time of Service: 15:17 LACE Index Scoring Tool Questions: Length of Stay (in days): 7 - 13 Was the patient admitted via the E.D.?: Yes Comorbidities: Chronic Pulmonary Disease E.D. Visits: 1 Answers: Total Score: 11 Risk of Readmission: High Risk Care Management Discharge Plan Reason for Hospitalization: Pneumonia, HCAP Discharge Plan: Frieda will discharge home with new home health services for PT. She will follow up with PCP and plan of care as described and transport with family. Patient/Family Education Needs: Review of discharge instructions, activity, limitations, follow up plan, discuss Ask me Three. Services Needed at Discharge: Home Health Care Services
== END 2023-05-25 15:26 | disposition home health service (06) | DRG 177 ==
LOC: ER 10:25 → MS 13:34 → ICU 05-19 21:41 → MS 05-22 13:44
PROVIDERS: Internal Medicine; Nurse Practitioner Acute Care; Student in an Organized Health Care Education/Training Program; Admitting Provider Internal Medicine; Emergency Provider Student in an Organized Health Care Education/Training Program; PCP Internal Medicine; Visit Provider Internal Medicine
DX: J69.0 Pneumonitis due to inhalation of food and vomit (principal); J96.21 Acute and chronic respiratory failure with hypoxia; L03.115 Cellulitis of right lower limb; L03.116 Cellulitis of left lower limb; Z68.41 Body mass index [BMI] 40.0-44.9, adult; T17.808A Unspecified foreign body in other parts of respiratory tract causing other injury, initial encounter; K59.03 Drug induced constipation; Z87.891 Personal history of nicotine dependence; K21.9 Gastro-esophageal reflux disease without esophagitis; K75.81 Nonalcoholic steatohepatitis (NASH); Z99.81 Dependence on supplemental oxygen; E03.9 Hypothyroidism, unspecified; F41.9 Anxiety disorder, unspecified; F32.A Depression, unspecified; G47.8 Other sleep disorders; I10 Essential (primary) hypertension; E66.01 Morbid (severe) obesity due to excess calories; R07.89 Other chest pain; I89.0 Lymphedema, not elsewhere classified; K22.2 Esophageal obstruction; J44.9 Chronic obstructive pulmonary disease, unspecified; G47.33 Obstructive sleep apnea (adult) (pediatric); R13.10 Dysphagia, unspecified
CPT/HCPCS: 00123; 36410; 36415; 71250; 71275; 76937; 80048; 80053; 82805; 84145; 85652; 87040; 87449; 87637; 87641; 92610; 93005; 94640; 96365; 96367; 96368; 97110; 97161; 97162; 97530; 99223; 99285; J1650; 36600; 71045; 71046; 80202; 81003; 83735; 83880; 84132; 84443; 84484; 85025; 86140; 87070; 87205; 87581; 87899; 93010; 94664; 94667; 94668; 94760; 99232; 99233; 99239; 99291; J0295; J0456; J1941; J2405; J2543; J3480; J3490; J7512; J7613; J7620

== ENCOUNTER → 2023-05-18 10:43 | Outpatient (BNVA) | payer MEDICARE, SELFPAY | PROVIDERS: PCP Internal Medicine; Referring Provider Internal Medicine; Visit Provider Student in an Organized Health Care Education/Training Program ==

== ENCOUNTER 2023-05-30 16:16 | Outpatient (REF) | payer MEDICARE, SELFPAY ==
[2023-05-30 14:56] LABS: Anion Gap 10.3 mmol/L (3-11); BUN 11 mg/dL (7-18); CO2 29.7 mmol/L (21.0-32.0); CREATININE 0.9 mg/dL (0.55-1.02); Calcium 9.8 mg/dL (8.5-10.1); Chloride 99 mmol/L (98-107); Estimated GFR 71.39 (mL/min/1.73m2); Glucose 80 mg/dL (74-106); Magnesium 2.2 mg/dL (1.8-2.4); Potassium 3.6 mmol/L (3.5-5.1); Sodium 139 mmol/L (136-145)
== END 2023-05-30 16:17 | disposition home or self-care (01) ==
LOC: LBN 16:16
PROVIDERS: PCP Internal Medicine; Visit Provider Internal Medicine
DX: J96.21 Acute and chronic respiratory failure with hypoxia (principal); J18.9 Pneumonia, unspecified organism; J44.9 Chronic obstructive pulmonary disease, unspecified; E03.9 Hypothyroidism, unspecified; R60.0 Localized edema
CPT/HCPCS: 80048; 83735

== ENCOUNTER 2023-06-07 14:11 | Outpatient (REF) | payer MEDICARE, SELFPAY ==
[2023-06-07 16:15] LABS: Anion Gap 9.3 mmol/L (3-11); BUN 17 mg/dL (7-18); CO2 30.7 mmol/L (21.0-32.0); CREATININE 1.1 mg/dL (0.55-1.02); Calcium 9.1 mg/dL (8.5-10.1); Chloride 97 mmol/L (98-107); Estimated GFR 56.11 (mL/min/1.73m2); Glucose 95 mg/dL (74-106); Magnesium 2.2 mg/dL (1.8-2.4); Potassium 3.8 mmol/L (3.5-5.1); Sodium 137 mmol/L (136-145)
== END 2023-06-07 14:12 | disposition home or self-care (01) ==
LOC: LBN 14:11
PROVIDERS: PCP Internal Medicine; Visit Provider Internal Medicine
DX: R13.10 Dysphagia, unspecified (principal); J96.21 Acute and chronic respiratory failure with hypoxia; E03.9 Hypothyroidism, unspecified; J44.9 Chronic obstructive pulmonary disease, unspecified; R60.0 Localized edema
CPT/HCPCS: 80048; 83735

== ENCOUNTER 2023-06-14 11:59 | Outpatient (REF) | payer MEDICARE, SELFPAY ==
[2023-06-14 16:56] LABS: Anion Gap 12.8 mmol/L (3-11); BUN 12 mg/dL (7-18); CO2 24.2 mmol/L (21.0-32.0); CREATININE 0.9 mg/dL (0.55-1.02); Calcium 8.6 mg/dL (8.5-10.1); Chloride 100 mmol/L (98-107); Estimated GFR 71.39 (mL/min/1.73m2); Glucose 86 mg/dL (74-106); Potassium 4.2 mmol/L (3.5-5.1); Sodium 137 mmol/L (136-145)
== END 2023-06-14 12:00 | disposition home or self-care (01) ==
LOC: LBN 11:59
PROVIDERS: PCP Internal Medicine; Visit Provider Internal Medicine
DX: J96.21 Acute and chronic respiratory failure with hypoxia (principal); J44.9 Chronic obstructive pulmonary disease, unspecified
CPT/HCPCS: 80048; 83735

== ENCOUNTER 2023-06-20 15:51 | Outpatient (REF) | payer MEDICARE, SELFPAY ==
[2023-06-20 14:15] LABS: Anion Gap 4.9 mmol/L (3-11); BUN 13 mg/dL (7-18); CO2 32.1 mmol/L (21.0-32.0); Calcium 9.1 mg/dL (8.5-10.1); Chloride 100 mmol/L (98-107); Estimated GFR 62.91 (mL/min/1.73m2); Glucose 92 mg/dL (74-106); Magnesium 2.1 mg/dL (1.8-2.4); Potassium 4.1 mmol/L (3.5-5.1); Sodium 137 mmol/L (136-145)
== END 2023-06-20 15:52 | disposition home or self-care (01) ==
LOC: LBN 15:51
PROVIDERS: PCP Internal Medicine; Visit Provider Internal Medicine
DX: J96.21 Acute and chronic respiratory failure with hypoxia (principal); J18.9 Pneumonia, unspecified organism; J44.9 Chronic obstructive pulmonary disease, unspecified; E03.9 Hypothyroidism, unspecified; R60.0 Localized edema; K21.9 Gastro-esophageal reflux disease without esophagitis
CPT/HCPCS: 80048; 83735

== ENCOUNTER 2023-07-31 09:13 | Inpatient (IN) | payer MEDICARE, SELFPAY ==
[2023-07-31] VITALS (76 sets, daily range): BP systolic 122–174; BP diastolic 54–102; PULSE 77–119; RESP 5–24; TEMP 37–37.2; O2SAT 85–100
--- NOTE | 2023-07-31 09:00 | DI.RAD_ITS ---
Exam(s) XR PORTABLE CHEST AP EXAM: XR PORTABLE CHEST AP CLINICAL HISTORY: dyspnea TECHNIQUE: 2D digital imaging was performed of the chest. One image was obtained. An AP view was ob tained. COMPARISON: CR XR CHEST 2V PA LATERAL from 05/25/2023 FINDINGS: MEDIASTINUM: Normal. HEART: Normal. PULMONARY VASCULATURE: Normal. LUNGS: Clear. PLEURAL SPACE: There is blunting of the left costophrenic angle which may represent a small left pleu ral effusion. No right pleural effusion. No pneumothorax. BONE:Within normal limits for the patient's age. There is a right convex curvature again seen of the upper and midthoracic spine. OTHER FINDINGS:Normal. IMPRESSION: 1. No acute pulmonary findings. 2. Question of a small left pleural effusion. DATA REPOSITORY: RADIATION DOSE DELIVERED:
--- NOTE | 2023-07-31 09:00 | RT.EKG_ITS ---
APPROVED REPORT Exam: Resting ECG Reason for Exam: dyspnea Patient Location: E HR:118 bpm ECG Measurements Heart Rate 118 AXIS W[place] 143 P 68 QRSd 83 QRS 57 QT 319 T 42 QTc 448 Conclusion Sinus tachycardia...rate> 99
--- NOTE | 2023-07-31 09:16 | NUR.NOTE ---
Accessed pt prior visit to get past medical history for EMS, Fer Mao, due to condition of patient coming in to ED. Nursing Note:
--- NOTE | 2023-07-31 09:18 | W.ED.GENAD ---
HPI General Mode of arrival: EMS. Date/Time Provider Initiated Documentation: 07/31/23 09:17. Information obtained by: patient and EMS. History of Present Illness 63 year old F presents to the emergency department with the chief complaint of Shortness of breath, described as severe, Patient started experiencing this day(s) (2) and it has been constant. No relieving factors improve symptom(s), No exacerbating factors reported . Patient notes cough; denies chest pain and fever/chills. Related Data Home Medications Medication Instructions Recorded Confirmed levothyroxine 200 mcg tablet 200 mcg PO DAILY 01/17/13 07/31/23 methadone 10 mg/5 mL oral solution 98 mg PO DAILY 01/17/13 07/31/23 mirtazapine 15 mg tablet 15 mg PO DAILY 01/17/13 07/31/23 mirtazapine 45 mg tablet 45 mg PO DAILY 01/17/13 07/31/23 zolpidem 5 mg tablet 5 mg PO HS 01/17/13 07/31/23 docusate sodium 100 mg capsule 200 mg PO DAILY 01/23/13 07/31/23 (Dulcolax Stool Softener (docusate)) simvastatin 10 mg tablet 10 mg PO DAILY 03/12/13 07/31/23 promethazine 25 mg rectal 25 mg RI PRN 03/15/14 07/31/23 suppository (Phenadoz) lorazepam 1 mg tablet 1 mg PO Q6H PRN PRN #14 tabs 11/05/16 07/31/23 dexlansoprazole 60 mg 1 tab PO DAILY 03/17/18 07/31/23 capsule,biphase delayed release (Dexilant) albuterol sulfate 90 mcg/actuation 2 puff inhalation QID PRN #8.5 08/29/22 07/31/23 aerosol inhaler grams budesonide-formoterol HFA 160 2 puff inhalation BID #0 grams 08/29/22 07/31/23 mcg-4.5 mcg/actuation aerosol inhaler (Symbicort) diltiazem HCl 30 mg tablet 30 mg PO Q8H 05/17/23 07/31/23 furosemide 20 mg tablet (Lasix) 20 mg PO BID #60 tabs 05/25/23 07/31/23 potassium chloride 20 mEq/15 mL 20 meq (15 mL) PO DAILY #450 mL 05/25/23 07/31/23 oral liquid sennosides 8.6 mg tablet (Senokot) 8.6 mg PO HS #30 tabs 05/25/23 07/31/23 spironolactone 25 mg tablet 25 mg PO DAILY #30 tabs 05/25/23 07/31/23 tiotropium bromide 18 mcg capsule 1 cap inhalation DAILY #30 05/25/23 07/31/23 with inhalation device (Spiriva inhalations with HandiHaler) lorazepam 0.5 mg tablet 0.5 mg PO DAILY PRN 07/31/23 07/31/23 Previous Rx's Medication Instructions Recorded lorazepam 1 mg tablet 1 mg PO Q6H PRN PRN #14 tabs 11/05/16 albuterol sulfate 90 mcg/actuation 2 puff inhalation QID PRN #8.5 08/29/22 aerosol inhaler grams budesonide-formoterol HFA 160 2 puff inhalation BID #0 grams 08/29/22 mcg-4.5 mcg/actuation aerosol inhaler (Symbicort) furosemide 20 mg tablet (Lasix) 20 mg PO BID #60 tabs 05/25/23 potassium chloride 20 mEq/15 mL 20 meq (15 mL) PO DAILY #450 mL 05/25/23 oral liquid sennosides 8.6 mg tablet (Senokot) 8.6 mg PO HS #30 tabs 05/25/23 spironolactone 25 mg tablet 25 mg PO DAILY #30 tabs 05/25/23 tiotropium bromide 18 mcg capsule 1 cap inhalation DAILY #30 05/25/23 with inhalation device (Spiriva inhalations with HandiHaler) Allergies Allergy/AdvReac Type Severity Reaction Status Date / Time No Known Allergies Allergy Unverified 07/31/23 09:55 General PAULINE: 3 Review of Systems All systems reviewed & are unremarkable except as noted in HPI and below Constitutional Constitutional: Denies chills and Denies fever(s) Cardiovascular Cardiovascular: Denies chest pain and Reports dyspnea Respiratory Respiratory: Reports cough and Reports dyspnea Gastrointestinal Gastrointestinal: Denies abdominal pain, Denies nausea and Denies vomiting Genitourinary Genitourinary: Denies dysuria Exam Const Orientation: alert HENMT Head: normal to inspection Ears: external ears normal General nose exam: external nose normal Mouth: moist mucous membranes Eyes General: appearance normal, both eyes and all related structures Neck Neck: normal visual inspection Resp Auscultation: rhonchi Cardio Jugular venous pressure: no JVD Rate: regular rate Heart Sounds: no murmurs Skin General skin exam: no rashes or lesions noted Neuro General: patient alert and patient oriented x3 Extrem General: capillary refill normal Psych Mental Status: mental status grossly normal Medical Decision Making 63-year-old female with a history of COPD on home oxygen, also on methadone, who was admitted in May for COPD exacerbation with pneumonia comes in with 1 to 2 days of shortness of breath along with a cough. EMS was called by significant other this morning, and EMS found her significantly dyspneic to the point where she was unable to communicate with them but was awake. She was given 2 DuoNebs and was put on CPAP and brought in with those treatment she is now answering in 1-2 word sentences. She denies any chest pain, fever, abdominal pain. She does have edema of both lower legs which per chart review she had an May when she was admitted, had a CTA at that time as well which showed no PE but did have pneumonia. She is rhonchorous in all lung tavera on exam suspect this is a COPD exacerbation with possible pneumonia. Will continue on BiPAP, give Solu-Medrol, DuoNebs and obtain EKG/troponin, CBC, CMP, cultures, procalcitonin, proBNP and chest x-ray. pCO2 was over 60, labs otherwise show no significant abnormalities. Patient is feeling better though is still able to talk to 3-4 word sentences and noticed diffuse rhonchi still. X-ray negative for acute findings, will discuss with hospitalist about admission for continued nebs and monitoring Differential Diagnosis Differential Diagnosis: COPD, pneumonia Medical Records Medical records reviewed: Yes I reviewed the patient's medical records. Imaging Data Radiologic Study: Attestation: I personally reviewed and interpreted this imaging study as follows: Imaging: X-Ray Radiologist's impression: No acute findings Lab Data Lab results reviewed: Yes I reviewed the patient's lab results. ECG Data Attestation: I personally reviewed and interpreted this ECG (s) as follows: Prior ECG tracings: available for review Interpretation: Sinus tachycardia, rate of 118, RI 143 no STEMI Quality:SDOH Health Related Social Needs: No Data to Display PFSH All Active Problems (Updated 07/31/23 @ 11:27 by Fer Hardwick MD) COPD with acute exacerbation (Acute) Bilateral leg edema (Acute) Constipation (Acute) Esophageal abnormality (Acute) Opioid use disorder, severe, on maintenance therapy (Chronic) GERD (gastroesophageal reflux disease) (Chronic) Hypothyroid (Chronic) Anxiety (Chronic 03/27/14) COPD (chronic obstructive pulmonary disease) (Chronic) Recurrent aspiration pneumonia (Acute) Bronchitis (Acute) Distal radius fracture (Acute) Medical History Abnormal auditory perception (03/29/14) Trouble in sleeping Depression History of drug abuse Irregular heart rhythm Hypertension Surgical History History of thyroidectomy Social History Smoking/Tobacco Use Status: Former Tobacco Use Quit Date: 06/13/99 Smoking risk assessment performed?: Yes Alcohol Intake: never Drug use: Current Sobriety Substance use type: former substance user Housing: house Current gender identity: female Do you feel safe at home: Yes Do you feel safe in your relationship?: Yes Discharge Plan Disposition Patient Disposition: Admit to [facility] Condition: Stable Discharge Details Chief Complaint: SOB/SuddenOnset Clinical Impression: COPD with acute exacerbation Primary Care Provider: Andrzej Kimbrough ED Provider: Fer Hardwick Conklin Meds and New Rx's Prescriptions: No Action methadone 10 MG/5 ML solution 98 mg PO DAILY mirtazapine 45 MG tablet 45 mg PO DAILY levothyroxine 200 MCG tablet 200 mcg PO DAILY zolpidem 5 MG tablet 5 mg PO HS mirtazapine 15 MG tablet 15 mg PO DAILY docusate sodium [Dulcolax Stool Softener (dss)] 100 MG capsule 200 mg PO DAILY Hold Instructions: Pt Stopped/Never Started Patient Comments: has not taken in the past week. simvastatin 10 MG tablet 10 mg PO DAILY promethazine [Phenadoz] 25 MG suppository 25 mg RI PRN dexlansoprazole [Dexilant] 60 mg Capsule,Biphase Delayed Releas 1 tab PO DAILY diltiazem HCl 30 mg tablet 30 mg PO Q8H Patient Comments: TAKE ONE TABLET BY MOUTH EVERY 8 HOURS spironolactone 25 mg Tablet 25 mg PO DAILY Qty: 30 0RF sennosides [Senokot] 8.6 mg Tablet 8.6 mg PO HS Qty: 30 0RF furosemide [Lasix] 20 mg tablet 20 mg PO BID Qty: 60 0RF potassium chloride 20 mEq/15 mL liquid 20 meq PO DAILY Qty: 450 0RF tiotropium bromide [Spiriva with HandiHaler] 18 mcg capsule, w/inhalation device 1 cap inhalation DAILY Qty: 30 0RF Rx Instructions: puncture 1 cap using device; one dose = 2 inhalations lorazepam 1 MG tablet 1 mg PO Q6H PRN PRNQty: 14 0RF budesonide-formoterol [Symbicort] 160-4.5 mcg/actuation Hfa Aerosol Inhaler 2 puff inhalation BID Qty: 0 0RF albuterol sulfate 90 mcg/actuation HFA aerosol inhaler 2 puff inhalation QID PRNQty: 8.5 0RF lorazepam 0.5 mg tablet 0.5 mg PO DAILY PRN Patient Comments: TAKE ONE TABLET BY MOUTH EVERY DAY NEEDED FOR ANXIETY
[2023-07-31] MEDS: Albuterol/Ipratropium 3 ML UPD VIAL (09:24)
[2023-07-31] MEDS: methylPREDNISolone SUCC 125 MG VIAL IVP (09:29)
[2023-07-31] MEDS: PIPERACILLIN/TAZO 4.5 GM in Normal Saline 100 ML IVPB (09:36)
[2023-07-31 09:49] LABS: Source Nasal/Nares
[2023-07-31 09:50] LABS: BE (Venous) 7 mmol/L (-2-3); HCO3 (Venous) 34 mmol/L (23-28); O2 Sat (Venous) 75 %; TCO2 (Venous) 32 mmol/L (24-29); pO2 (Venous) 44 mmHg
[2023-07-31 09:50] LABS: Absolute Basophil Count 0.05 10^3/uL (0.0-0.2); Absolute Eosinophil Count 0.45 10^3/uL (0.0-0.7); Absolute Lymphocyte Count 1.78 10^3/uL (1.2-3.4); Absolute Monocyte Count 0.38 10^3/uL (0.1-0.8); Absolute Neutrophil Count 3.31 10^3/uL (1.2-6.7); Basophils % 0.8; Eosinophils % 7.5; HCT 41.7 % (36.0-46.0); HGB 12.8 g/dL (11.2-15.7); Lymphocytes % 29.8; MCH 27.7 pg (27.0-33.0); MCHC 30.7 % (32.0-36.0); MCV 90 fL (80-95); MPV 9.1 fL (8.0-11.0); Monocytes % 6.4; Neutrophils % 55.5; Platelet Count 262 10^3/uL (130-400); RBC 4.62 10^6/uL (3.93-5.22); RDW 13.8 % (11.7-14.6); RDW-SD 45.9 fL; WBC 5.97 10^3/uL (4.4-10.8)
[2023-07-31 09:54] LABS: pCO2 (Venous) 69 mmHg (41-51)
[2023-07-31 10:06] LABS: INR 1.1 (0.9-1.1); PTT Activated 28.1 sec (23.6-32.8); Prothrombin Time 10.9 sec (9.1-11.1)
[2023-07-31 10:15] LABS: ALT 24 U/L (14-59); AST 22 U/L (15-37); Alkaline Phosphatase 98 U/L (46-116); Anion Gap 7.2 mmol/L (3-11); BUN 5 mg/dL (7-18); Bilirubin, Total 0.6 mg/dL (0.2-1.0); CO2 33.8 mmol/L (21.0-32.0); CREATININE 0.9 mg/dL (0.55-1.02); Calcium 9.2 mg/dL (8.5-10.1); Chloride 102 mmol/L (98-107); Estimated GFR 70.95 (mL/min/1.73m2); Glucose 101 mg/dL (74-106); Magnesium 2.1 mg/dL (1.8-2.4); NT-proBNP 38 pg/mL (<300); Potassium 3.7 mmol/L (3.5-5.1); Sodium 143 mmol/L (136-145); TSH (W/Ref FT4) 0.56 uIU/mL (0.36-3.74); Total Protein 7.8 g/dL (6.4-8.2); Troponin I < 50 ng/L (< or =60)
[2023-07-31 10:38] LABS: COVID-19 PCR Negative (Negative)
--- NOTE | 2023-07-31 10:51 | DI.VRAD_ITS ---
PROCEDURE INFORMATION: Exam: XR Chest Exam date and time: 07/31/2023 10:27 AM Age: 63 years old Clinical indication: Other: Dyspnea TECHNIQUE: Imaging protocol: Radiologic exam of the chest. Views: 1 view. COMPARISON: CR XR CHEST 2V PA LATERAL 05/25/2023 8:29 AM FINDINGS: Lungs: No focal consolidation. Pleural spaces: Similar blunting of the left costophrenic angle, related to atelectatic/fibrotic changes. Superimposed small left pleural effusion is not totally excluded. Heart/Mediastinum: Unremarkable. No cardiomegaly. Bones/joints: Moderate degenerative disease of bilateral acromioclavicular joints. There is a scoliotic curvature of the thoracic spine convex to the right. IMPRESSION: No acute cardiopulmonary process. Dictated and Authenticated by: Osmel Mehta MD. Ordering:NANCI Monroe MD
--- NOTE | 2023-07-31 10:52 | NUR.NOTE ---
Patient significant other Jay Ortizkalpana called, asking about patient. He is on HIPPA, told him she is doing better and waiting on tests results. He began yelling into the phone stating that she needs to go to [facility] [place] where her doctors, if she doesn't he has many puppy walker and he will call them. I asked him to call again in 45 minutes for more information. He continued to yell at me over the phone about puppy walker and hung up. Nursing Note:
[2023-07-31] MEDS: Albuterol 2.5 MG/3 ML INH SOLN VIAL UPD (11:05)
[2023-07-31 11:17] LABS: Procalcitonin < 0.1 ng/mL
--- NOTE | 2023-07-31 11:58 | HPE_ITS ---
Date of service: 07/31/23 Time of Service: 11:58 Assessment and Plan Assessment and plan (1) Acute on chronic respiratory failure with hypoxemia: Status: Acute Assessment and plan: admit to med/surg weaned from bipap to hi flow, continue to wean as able Thought to be secondary to COPD exacerbation but does have history of recurrent aspiration. Continue empiric treatment with Zosyn day #1, received solumedrol in ED, continue with prednisone burst continue respiratory inhalers Procalcitonin level is less than 0.1 (2) COPD with acute exacerbation: Status: Acute Assessment and plan: see above zosyn, prednisone, wean oxygen, pulmonary toileting (3) Aspiration into airway: Status: Chronic Assessment and plan: MBBS in 08/2022 showed a barium tablet stuck in the distal esophagus with reflux of fluid above it. [employer] did bedside swallow evaluation on 05/18 and recommended minced/moist solids w/ thin liquids but she was unable to tolerate this so placed on pureed foods and thin liquids. med should be liquids or crushed. last admission 06/04 referred to [facility] GI, Dr. Tessie Raya, who agreed to set patient up for outpatient follow up in the GI clinic and arrange outpatient EGD. continue PPI Qualifiers: Encounter type: initial encounter Qualified Code(s): T17.908A - Unspecified foreign body in respiratory tract, part unspecified causing other injury, initial encounter (4) Bilateral leg edema: Status: Chronic Assessment and plan: at baseline, suspect underlying RAQUEL. She has never had a PSG although it has been recommended to her by [facility] [place] community sports coordinator. She had an echocardiogram done in August 2022 which showed normal LV and RV size and function w/ no valvular abnormalities. PA pressures could not be assessed as patient had only trace of TR. No mention was made as to her diastolic function. Continue home diuretics for now, ALEXI stocking, elevation (5) Hypothyroid: Status: Chronic Assessment and plan: Continue current dose of levothyroxine. Qualifiers: Hypothyroidism type: acquired Qualified Code(s): E03.9 - Hypothyroidism, unspecified (6) GERD (gastroesophageal reflux disease): Status: Chronic Assessment and plan: continue home medications Qualifiers: Esophagitis presence: esophagitis presence not specified Qualified Code(s): K21.9 - Gastro-esophageal reflux disease without esophagitis (7) Constipation: Status: Chronic Assessment and plan: continue home bowel medications. consider relistor if needed Qualifiers: Constipation type: drug induced constipation Qualified Code(s): K59.03 - Drug induced constipation (8) Opioid use disorder, severe, on maintenance therapy: Status: Chronic Assessment and plan: Continue methadone (9) On deep vein thrombosis (DVT) prophylaxis: Status: Acute Assessment and plan: SC enoxaparin (10) Discharge planning issues: Status: Acute Assessment and plan: case management will be following for discharge planning. discussed with DR Lama History of Present Illness History of Present Illness Chief Complaint: shortness of breath Review of Systems All systems reviewed & are unremarkable except as noted in HPI and below PFSH All Active Problems (Updated 07/31/23 @ 12:11 by Johana Aldrich NP) Discharge planning issues (Acute) COPD with acute exacerbation (Acute) Aspiration into airway (Chronic) Acute on chronic respiratory failure with hypoxemia (Acute) On deep vein thrombosis (DVT) prophylaxis (Acute) Bilateral leg edema (Chronic) Constipation (Chronic) Esophageal abnormality (Acute) Opioid use disorder, severe, on maintenance therapy (Chronic) GERD (gastroesophageal reflux disease) (Chronic) Hypothyroid (Chronic) Anxiety (Chronic 03/27/14) COPD (chronic obstructive pulmonary disease) (Chronic) Recurrent aspiration pneumonia (Acute) Bronchitis (Acute) Distal radius fracture (Acute) Medical History Abnormal auditory perception (03/29/14) Trouble in sleeping Depression History of drug abuse Irregular heart rhythm Hypertension Surgical History History of thyroidectomy Social History Smoking/Tobacco Use Status: Former Tobacco Use Quit Date: 06/13/99 Smoking risk assessment performed?: Yes Alcohol Intake: never Drug use: Current Sobriety Substance use type: former substance user Housing: apartment Current gender identity: female Do you feel safe at home: Yes Do you feel safe in your relationship?: Yes Meds Allergies and Home Medications Allergies Allergy/AdvReac Type Severity Reaction Status Date / Time No Known Allergies Allergy Unverified 07/31/23 09:55 Home Medications Medication Instructions Recorded Confirmed Type levothyroxine 200 mcg tablet 200 mcg PO DAILY 08/07/13 02/18/24 History methadone 10 mg/5 mL oral solution 98 mg PO DAILY 01/17/13 07/31/23 History mirtazapine 15 mg tablet 15 mg PO DAILY 01/17/13 07/31/23 History mirtazapine 45 mg tablet 45 mg PO DAILY 01/17/13 07/31/23 History zolpidem 5 mg tablet 5 mg PO HS 01/17/13 07/31/23 History docusate sodium 100 mg capsule 200 mg PO DAILY 01/23/13 07/31/23 History (Dulcolax Stool Softener (docusate)) simvastatin 10 mg tablet 10 mg PO DAILY 03/12/13 07/31/23 History promethazine 25 mg rectal 25 mg GA PRN 03/15/14 07/31/23 History suppository (Phenadoz) lorazepam 1 mg tablet 1 mg PO Q6H PRN PRN #14 tabs 11/05/16 07/31/23 Rx dexlansoprazole 60 mg 1 tab PO DAILY 03/17/18 07/31/23 History capsule,biphase delayed release (Dexilant) albuterol sulfate 90 mcg/actuation 2 puff inhalation QID PRN #8.5 08/29/22 07/31/23 Rx aerosol inhaler grams budesonide-formoterol HFA 160 2 puff inhalation BID #0 grams 08/29/22 07/31/23 Rx mcg-4.5 mcg/actuation aerosol inhaler (Symbicort) diltiazem HCl 30 mg tablet 30 mg PO Q8H 05/17/23 07/31/23 History furosemide 20 mg tablet (Lasix) 20 mg PO BID #60 tabs 05/25/23 07/31/23 Rx potassium chloride 20 mEq/15 mL 20 meq (15 mL) PO DAILY #450 mL 05/25/23 07/31/23 Rx oral liquid sennosides 8.6 mg tablet (Senokot) 8.6 mg PO HS #30 tabs 05/25/23 07/31/23 Rx spironolactone 25 mg tablet 25 mg PO DAILY #30 tabs 05/25/23 07/31/23 Rx tiotropium bromide 18 mcg capsule 1 cap inhalation DAILY #30 05/25/23 07/31/23 Rx with inhalation device (Spiriva inhalations with HandiHaler) lorazepam 0.5 mg tablet 0.5 mg PO DAILY PRN 07/31/23 07/31/23 History Exam Const General: cooperative and ill appearing (Older appearing than stated age) chronically Nutritional Appearance: obese Orientation: alert, awake and oriented x3 HENMT Head: normal to inspection Mouth: moist mucous membranes Eyes Conjunctivae: normal conjunctivae Sclera: normal sclerae Neck Neck: trachea midline and supple Chest Chest: normal inspection of the chest Resp Effort & Inspection: normal respiratory effort Auscultation: no rales, rhonchi (Scattered coarse breath sounds bilaterally) and wheezes expiratory wheezes Cardio Rate: regular rate Rhythm: regular rhythm GI Palpation: soft, no guarding, mass and nontender Skin General skin exam: erythema (Bilateral lower legs, most consistent with venous stasis) Neuro General: patient alert, patient awake and tone normal Extrem General: edema Laterality: bilateral (feels greater than baseline) Psych Appearance: other Mental Status: mental status grossly normal Results Labs 07/31/23 09:37 07/31/23 09:37 Labs: Laboratory Results - last 24 hr 07/31/23 07/31/23 07/31/23 09:34 09:37 09:46 WBC 5.97 RBC 4.62 Hgb 12.8 Hct 41.7 MCV 90 MCH 27.7 MCHC 30.7 L RDW 13.8 Plt Count 262 MPV 9.1 Immature Gran % 0.0 Neutrophils % 55.5 Lymphocytes % 29.8 Monocytes % 6.4 Eosinophils % 7.5 Basophils % 0.8 Nucleated RBC % 0.0 Absolute Neutrophils 3.31 Absolute Lymphocytes 1.78 Absolute Monocytes 0.38 Absolute Eosinophils 0.45 Absolute Basophils 0.05 PT 10.9 INR 1.1 APTT 28.1 VBG pH 7.30 L VBG pCO2 69 H* VBG pO2 44 VBG HCO3 34 H VBG Total CO2 32 H VBG O2 Saturation 75 VBG Base Excess 7 H Sodium 143 Potassium 3.7 Chloride 102 Carbon Dioxide 33.8 H Anion Gap 7.2 BUN 5 L Creatinine 0.9 Est GFR (CKD-EPI 2020) 70.95 Glucose 101 Calcium 9.2 Magnesium 2.1 Total Bilirubin 0.6 AST 22 ALT 24 Alkaline Phosphatase 98 Troponin I < 50 NT-Pro-B Natriuret Pep 38 Total Protein 7.8 Albumin 4.0 Procalcitonin < 0.1 TSH 0.56 COVID-19 Source Nasal/Nares SARS-CoV-2 (PCR) Negative Last Vital Signs Pulse 88 07/31/23 11:16 Resp 16 07/31/23 11:20 BP 135/66 07/31/23 11:16 Pulse Ox 90 L 07/31/23 11:20 Time Spent Time spent with Patient: 40-54 minutes Time was spent: preparing to see the patient(eg.review tests), obtaining and/or reviewing separately otained hiistory, ordering medications,tests, procedures, indepentently interpreting results and counseling the patient
[2023-07-31 13:19] LABS: Troponin I < 50 ng/L (< or =60)
--- NOTE | 2023-07-31 13:53 | W.PC.ACHO ---
Registration Status: REG ER Primary Language: Preferred Language: Latvian ED Information & Data Chief Complaint SOB/SuddenOnset 07/31/23 09:19 Chief Complaint SOB/SuddenOnset 07/31/23 09:15 Triage Note Increased SOB tuesday, recent 07/31/23 09:15 admission for pneumonia Medical / Surgical History (Last Reviewed 05/25/23 @ 13:25 by Kvng Wilkinson MD) Abnormal auditory perception (03/29/14) Trouble in sleeping Depression History of drug abuse Irregular heart rhythm Hypertension (Last Reviewed 05/25/23 @ 13:25 by Kvng Wilkinson MD) History of thyroidectomy Most Recent Vital Signs Pulse 77 07/31/23 12:31 Pulse 82 07/31/23 12:40 Respiratory Rate 17 07/31/23 12:40 Respiratory Effort Short of Breath, Labored 07/31/23 10:06 Respiratory Depth Shallow 07/31/23 10:06 Respiratory Pattern Tachypnea 07/31/23 10:06 Blood Pressure 127/55 L 07/31/23 12:31 Blood Pressure Mean 74 07/31/23 12:31 Blood Pressure Position Sitting 07/31/23 09:15 Pulse Oximetry 90 L 07/31/23 12:40 Oxygen Delivery Method Bi-pap 07/31/23 09:24 Fraction of Inspired Oxygen (FIO2) 30 07/31/23 12:13 Pain Level 0 07/31/23 09:15 Allergies No Known Allergies Allergy (Unverified 07/31/23 09:55) Precautions Isolation Standard precaution 07/31/23 09:19 IV IV Catheter Type [Right Hand] Saline Lock IV Catheter Type [Left Upper Peripheral IV arm] IV Catheter Gauge [Right Hand] 20 IV Catheter Gauge [Left Upper 18 arm] Diagnostics 07/31/23 07/31/23 07/31/23 Range/Units 12:53 09:46 09:37 WBC 5.97 (4.4-10.8) 10^3/uL RBC 4.62 (3.93-5.22) 10^6/uL Hgb 12.8 (11.2-15.7) g/dL Hct 41.7 (36.0-46.0) % MCV 90 (80-95) fL MCH 27.7 (27.0-33.0) pg MCHC 30.7 L (32.0-36.0) % RDW 13.8 (11.7-14.6) % Plt Count 262 (130-400) 10^3/uL MPV 9.1 (8.0-11.0) fL Immature Gran % 0.0 Neutrophils % 55.5 Lymphocytes % 29.8 Monocytes % 6.4 Eosinophils % 7.5 Basophils % 0.8 Nucleated RBC % 0.0 (0.0-0.3) % Absolute Neutrophils 3.31 (1.2-6.7) 10^3/uL Absolute Lymphocytes 1.78 (1.2-3.4) 10^3/uL Absolute Monocytes 0.38 (0.1-0.8) 10^3/uL Absolute Eosinophils 0.45 (0.0-0.7) 10^3/uL Absolute Basophils 0.05 (0.0-0.2) 10^3/uL PT 10.9 (9.1-11.1) sec INR 1.1 (0.9-1.1) APTT 28.1 (23.6-32.8) sec VBG pH 7.30 L (7.31-7.41) VBG pCO2 69 H* (41-51) mmHg VBG pO2 44 mmHg VBG HCO3 34 H (23-28) mmol/L VBG Total CO2 32 H (24-29) mmol/L VBG O2 Saturation 75 % VBG Base Excess 7 H (-2-3) mmol/L Sodium 143 (136-145) mmol/L Potassium 3.7 (3.5-5.1) mmol/L Chloride 102 (98-107) mmol/L Carbon Dioxide 33.8 H (21.0-32.0) mmol/L Anion Gap 7.2 (3-11) mmol/L BUN 5 L (7-18) mg/dL Creatinine 0.9 (0.55-1.02) mg/dL Est GFR (CKD-EPI 2020) 70.95 (mL/min/1.73m2) Glucose 101 (74-106) mg/dL Calcium 9.2 (8.5-10.1) mg/dL Magnesium 2.1 (1.8-2.4) mg/dL Total Bilirubin 0.6 (0.2-1.0) mg/dL AST 22 (15-37) U/L ALT 24 (14-59) U/L Alkaline Phosphatase 98 (46-116) U/L Troponin I < 50 < 50 (< or =60) ng/L NT-Pro-B Natriuret Pep 38 (<300) pg/mL Total Protein 7.8 (6.4-8.2) g/dL Albumin 4.0 (3.4-5.0) g/dL Procalcitonin < 0.1 ng/mL TSH 0.56 (0.36-3.74) uIU/mL COVID-19 Source SARS-CoV-2 (PCR) (Negative) 07/31/23 Range/Units 09:34 WBC (4.4-10.8) 10^3/uL RBC (3.93-5.22) 10^6/uL Hgb (11.2-15.7) g/dL Hct (36.0-46.0) % MCV (80-95) fL MCH (27.0-33.0) pg MCHC (32.0-36.0) % RDW (11.7-14.6) % Plt Count (130-400) 10^3/uL MPV (8.0-11.0) fL Immature Gran % Neutrophils % Lymphocytes % Monocytes % Eosinophils % Basophils % Nucleated RBC % (0.0-0.3) % Absolute Neutrophils (1.2-6.7) 10^3/uL Absolute Lymphocytes (1.2-3.4) 10^3/uL Absolute Monocytes (0.1-0.8) 10^3/uL Absolute Eosinophils (0.0-0.7) 10^3/uL Absolute Basophils (0.0-0.2) 10^3/uL PT (9.1-11.1) sec INR (0.9-1.1) APTT (23.6-32.8) sec VBG pH (7.31-7.41) VBG pCO2 (41-51) mmHg VBG pO2 mmHg VBG HCO3 (23-28) mmol/L VBG Total CO2 (24-29) mmol/L VBG O2 Saturation % VBG Base Excess (-2-3) mmol/L Sodium (136-145) mmol/L Potassium (3.5-5.1) mmol/L Chloride (98-107) mmol/L Carbon Dioxide (21.0-32.0) mmol/L Anion Gap (3-11) mmol/L BUN (7-18) mg/dL Creatinine (0.55-1.02) mg/dL Est GFR (CKD-EPI 2020) (mL/min/1.73m2) Glucose (74-106) mg/dL Calcium (8.5-10.1) mg/dL Magnesium (1.8-2.4) mg/dL Total Bilirubin (0.2-1.0) mg/dL AST (15-37) U/L ALT (14-59) U/L Alkaline Phosphatase (46-116) U/L Troponin I (< or =60) ng/L NT-Pro-B Natriuret Pep (<300) pg/mL Total Protein (6.4-8.2) g/dL Albumin (3.4-5.0) g/dL Procalcitonin ng/mL TSH (0.36-3.74) uIU/mL COVID-19 Source Nasal/Nares SARS-CoV-2 (PCR) Negative (Negative) 07/31/23 09:59 Blood Culture - Pending Blood 07/31/23 09:37 Blood Culture - Pending Blood Intake and Output - 24 Hour Total 07/31/23 09:05 thru 07/31/23 10:08 Intake Total 100 Balance 100 Weight 126.643 kg Intake: IV 100 Falls Risk Assessment History of Falls No History 07/31/23 09:23 Contributing Factors Unstable,Impairments 07/31/23 09:23 Ambulatory Aids Independent 07/31/23 09:23 Tubes/Lines With any additional score 07/31/23 09:23 Gait Evaluation No gait disturbance 07/31/23 09:23 Cognition No cognitive impairment 07/31/23 09:23 Fall Total Score 26 07/31/23 09:23 Level of Risk Moderate Risk 07/31/23 09:23 Problems (Last Reviewed 05/25/23 @ 13:25 by Kvng Wilkinson MD) Discharge planning issues (Acute) COPD with acute exacerbation (Acute) Aspiration into airway (Chronic) Acute on chronic respiratory failure with hypoxemia (Acute) On deep vein thrombosis (DVT) prophylaxis (Acute) Bilateral leg edema (Chronic) Constipation (Chronic) Opioid use disorder, severe, on maintenance therapy (Chronic) GERD (gastroesophageal reflux disease) (Chronic) Hypothyroid (Chronic) Notes 07/31/23 10:52 Nursing Notes by Shanna Arnold Patient significant other Jay Aguayo called, asking about patient. He is on HIPPA, told him she is doing better and waiting on tests results. He began yelling into the phone stating that she needs to go to [facility] [place] doctors, if she doesn't he has many bioassayist and he will call them. I asked him to call again in 45 minutes for more information. He continued to yell at me over the phone about bioassayist and hung up. Nursing Note: Initialized on 07/31/23 10:52 - END OF NOTE 07/31/23 09:16 Nursing Notes by Shanna Arnold Accessed pt prior visit to get past medical history for EMS, Fer Mao, due to condition of patient coming in to ED. Nursing Note: Initialized on 07/31/23 09:16 - END OF NOTE v v v v v v v v v Sending and/or Receiving Nurses: Please use comment section below to note any information pertinent to the patient hand-off not included above. Information / Comments: Report received from:Kori Woo RN
[2023-07-31] MEDS: dilTIAZem 30 MG TAB PO ×2 (14:53→22:10)
[2023-07-31] MEDS: Methadone Liquid 10 MG/ML 98 MG PO (14:54)
[2023-07-31] MEDS: Albuterol/Ipratropium 3 ML UPD VIAL UPD ×2 (15:36→20:12)
[2023-07-31] MEDS: Furosemide 40 MG/4 ML VIAL IVP (16:38)
[2023-07-31] MEDS: Normal Saline Flush 10 ML SYR IVP ×3 (16:39→18:19)
[2023-07-31] MEDS: PIPERACILLIN/TAZO 3.375 GM in Normal Saline 50 ML IVPB ×2 (18:19→23:59)
[2023-07-31] MEDS: Normal Saline 500 ML IV (18:31)
[2023-07-31] MEDS: Budesonide/Formoterol 160/4.5 6 GM 60 PUFF INH IH (20:13)
[2023-07-31] MEDS: Mirtazapine 15 MG TAB 45 MG PO (21:19)
[2023-07-31] MEDS: Simvastatin 10 MG TAB PO (21:20)
[2023-07-31] MEDS: Mirtazapine 15 MG TAB PO (21:20)
[2023-07-31] MEDS: guaiFENesin 600 MG TABCR PO (21:20)
[2023-07-31] MEDS: Senna TAB 1 TAB PO (21:20)
[2023-07-31] MEDS: Zolpidem 5 MG TAB PO (21:21)
[2023-08-01] VITALS (77 sets, daily range): BP systolic 104–129; BP diastolic 59–82; PULSE 63–128; RESP 2–21; TEMP 36.2–37.1; O2SAT 82–96
[2023-08-01] MEDS: PIPERACILLIN/TAZO 3.375 GM in Normal Saline 50 ML IVPB ×3 (05:38→18:07)
[2023-08-01] MEDS: Levothyroxine 100 MCG TAB 200 MCG PO (05:40)
[2023-08-01] MEDS: dilTIAZem 30 MG TAB PO ×3 (05:40→21:57)
[2023-08-01 05:57] LABS: Abs Immature Grans 0.03 10^3/uL (0.0-0.06); Absolute Basophil Count 0.01 10^3/uL (0.0-0.2); Absolute Lymphocyte Count 0.93 10^3/uL (1.2-3.4); Absolute Monocyte Count 0.48 10^3/uL (0.1-0.8); Absolute Neutrophil Count 6.32 10^3/uL (1.2-6.7); Basophils % 0.1; HCT 36.3 % (36.0-46.0); HGB 11.3 g/dL (11.2-15.7); Immature Grans % 0.4; MCH 27.6 pg (27.0-33.0); MCHC 31.1 % (32.0-36.0); MCV 89 fL (80-95); MPV 9.1 fL (8.0-11.0); Monocytes % 6.2; Neutrophils % 81.3; Platelet Count 234 10^3/uL (130-400); RDW 13.9 % (11.7-14.6); WBC 7.77 10^3/uL (4.4-10.8)
[2023-08-01] MEDS: Albuterol 2.5 MG/3 ML INH SOLN VIAL UPD (06:03)
[2023-08-01 06:16] LABS: Anion Gap 6.8 mmol/L (3-11); BUN 12 mg/dL (7-18); CO2 34.2 mmol/L (21.0-32.0); CREATININE 0.9 mg/dL (0.55-1.02); Calcium 8.8 mg/dL (8.5-10.1); Chloride 102 mmol/L (98-107); Estimated GFR 70.95 (mL/min/1.73m2); Glucose 150 mg/dL (74-106); Potassium 3.6 mmol/L (3.5-5.1); Sodium 143 mmol/L (136-145)
--- NOTE | 2023-08-01 06:36 | NUR.NOTE ---
Pt 02 had been titrated down to 4l NC while sleeping woke and was sitting at side of bed developed a HARSH Barking cough 02 titrated to 6l albuteral updraft given oxy mask added pt Sa02 continued to drop to 82% PT was in clear distress. . Bipap placed on pt at 100% for recovery to maintain Sa02 of 88 to 92 currently @ 0648 pt on bipap 12/6 @ 55% HR 101 Sa02 91% Resp has been called will come and see pt when they arrive in the building . Dr Wilkinson called and updated Nursing Note:
[2023-08-01] MEDS: Tiotropium Bromide-Respimat 10 PUFF INH 2 PUFF IH (08:22)
[2023-08-01] MEDS: Budesonide/Formoterol 160/4.5 6 GM 60 PUFF INH IH ×2 (08:23→19:36)
[2023-08-01] MEDS: Albuterol/Ipratropium 3 ML UPD VIAL UPD ×4 (08:23→19:34)
[2023-08-01] MEDS: Potassium Chloride Liquid 20 MEQ PKT PO (09:02)
[2023-08-01] MEDS: Pantoprazole 40 MG TABCR PO (09:02)
[2023-08-01] MEDS: Furosemide 20 MG TAB PO ×2 (09:03→16:03)
[2023-08-01] MEDS: Spironolactone 25 MG TAB PO (09:03)
[2023-08-01] MEDS: Docusate Sodium 100 MG CAP 200 MG PO (09:03)
[2023-08-01] MEDS: Methadone Liquid 10 MG/ML 98 MG PO (09:04)
[2023-08-01] MEDS: Enoxaparin 40 MG/0.4 ML SYR SC (09:04)
[2023-08-01] MEDS: Normal Saline Flush 10 ML SYR IVP ×2 (09:05→19:31)
[2023-08-01] MEDS: LORazepam 1 MG TAB PO (10:18)
[2023-08-01] MEDS: guaiFENesin/D-METHORPHAN HB 5 ML CUP 10 ML PO ×2 (10:18→19:30)
--- NOTE | 2023-08-01 10:25 | PGE_ITS ---
Date of Service Date of service: 08/01/23 Time of Service: 10:25 Assessment and Plan Assessment and plan (1) Acute on chronic respiratory failure with hypoxemia: Status: Acute Assessment and plan: -Initially admitted to [facility] after having been weaned off of BiPAP to high flow -However, overnight became significantly short of breath and has been on BiPAP since that time -Will continue BiPAP and wean as tolerated back to nasal cannula -Thought to be secondary to COPD exacerbation but does have history of recurrent aspiration. -Continue empiric treatment with Zosyn day #2 -received solumedrol in ED, continue with prednisone burst -continue respiratory inhalers -Procalcitonin level is less than 0.1 (2) COPD with acute exacerbation: Status: Acute Assessment and plan: see above zosyn, prednisone, wean oxygen, pulmonary toileting (3) Aspiration into airway: Status: Chronic Assessment and plan: -MBBS in 08/2022 showed a barium tablet stuck in the distal esophagus with reflux of fluid above it. CLERICAL AIDE did bedside swallow evaluation on 05/18 and recommended minced/moist solids w/ thin liquids but she was unable to tolerate this so placed on pureed foods and thin liquids. -med should be liquids or crushed. -last admission 06/04 referred to [facility] GI, Dr. Tessie Raya, who agreed to set patient up for outpatient follow up in the GI clinic and arrange outpatient EGD. continue PPI Qualifiers: Encounter type: initial encounter Qualified Code(s): T17.908A - Unspecified foreign body in respiratory tract, part unspecified causing other injury, initial encounter (4) Bilateral leg edema: Status: Chronic Assessment and plan: -at baseline, suspect underlying RAQUEL. She has never had a PSG although it has been [place] to [place] [facility] [place]. -She had an echocardiogram done in August 2022 which showed normal LV and RV size and function w/ no valvular abnormalities. PA pressures could not be assessed as patient had only trace of TR. No mention was made as to her diastolic function. -Continue home diuretics for now, ALEXI stocking, elevation (5) Hypothyroid: Status: Chronic Assessment and plan: -Continue current dose of levothyroxine. Qualifiers: Hypothyroidism type: acquired Qualified Code(s): E03.9 - Hypothyroidism, unspecified (6) GERD (gastroesophageal reflux disease): Status: Chronic Assessment and plan: -continue home medications Qualifiers: Esophagitis presence: esophagitis presence not specified Qualified Code(s): K21.9 - Gastro-esophageal reflux disease without esophagitis (7) Constipation: Status: Chronic Assessment and plan: -continue home bowel medications. consider relistor if needed Qualifiers: Constipation type: drug induced constipation Qualified Code(s): K59.03 - Drug induced constipation (8) Opioid use disorder, severe, on maintenance therapy: Status: Chronic Assessment and plan: -Continue methadone (9) On deep vein thrombosis (DVT) prophylaxis: Status: Acute Assessment and plan: -SC enoxaparin Subjective Subjective Interval history since last seen: Patient experienced some episode of shortness of breath thought to have been secondary to bronchospasm overnight. She was placed on BiPAP, and since that time she states that she feels that she is improved. Otherwise she has no other complaints or concerns at this time. Exam Narrative Exam Narrative: Chronically ill-appearing female sitting up in the edge of the bed in no acute distress, ANO x 4, [address] L nasal cannula in place while she is taking medications otherwise she is on BiPAP, heart regular rate and rhythm, Objective Last Vital Signs Temp 98.8 F 08/01/23 04:46 Pulse 101 H 08/01/23 08:52 Resp 15 08/01/23 08:52 BP 104/59 L 08/01/23 04:46 Pulse Ox 96 08/01/23 08:54 Laboratory Results - last 24 hr 07/31/23 07/31/23 07/31/23 09:34 09:37 12:53 WBC RBC Hgb Hct MCV MCH MCHC RDW Plt Count MPV Immature Gran % Neutrophils % Lymphocytes % Monocytes % Eosinophils % Basophils % Nucleated RBC % Absolute Neutrophils Absolute Lymphocytes Absolute Monocytes Absolute Eosinophils Absolute Basophils Sodium Potassium Chloride Carbon Dioxide Anion Gap BUN Creatinine Est GFR (CKD-EPI 2020) Glucose Calcium Troponin I < 50 Procalcitonin < 0.1 SARS-CoV-2 (PCR) Negative 08/01/23 05:34 WBC 7.77 RBC 4.10 Hgb 11.3 Hct 36.3 MCV 89 MCH 27.6 MCHC 31.1 L RDW 13.9 Plt Count 234 MPV 9.1 Immature Gran % 0.4 Neutrophils % 81.3 Lymphocytes % 12.0 Monocytes % 6.2 Eosinophils % 0.0 Basophils % 0.1 Nucleated RBC % 0.0 Absolute Neutrophils 6.32 Absolute Lymphocytes 0.93 L Absolute Monocytes 0.48 Absolute Eosinophils 0.00 Absolute Basophils 0.01 Sodium 143 Potassium 3.6 Chloride 102 Carbon Dioxide 34.2 H Anion Gap 6.8 BUN 12 Creatinine 0.9 Est GFR (CKD-EPI 2020) 70.95 Glucose 150 H Calcium 8.8 Troponin I Procalcitonin SARS-CoV-2 (PCR) Time Spent with Patient Time Spent with Patient: >50 minutes (60 minutes of critical care time for patient with acute exacerbation of COPD requiring BiPAP therapy) Time was spent: preparing to see the patient(eg.review tests), obtaining and/or reviewing separately otained hiistory, ordering medications,tests, procedures, referring, communicating with other health critical care cns, indepentently interpreting results, counseling the patient and care coordination
--- NOTE | 2023-08-01 10:30 | PDOC.CMIN ---
Date of service: 08/01/23 Time of Service: 10:30 Care Management Initial Assmt Initial Assessment REASON FOR HOSPITALIZATION:: COPD Exacerbation, hypoxic respiratory failure PREVIOUS FUNCTIONAL STATUS/SOCIAL/FAMILY SUPPORTS:: Friead lives in an apartment in [facility] with her s/o, Murtaza. She is independent at baseline in the community. CURRENT FUNCTIONAL STATUS:: Lying in bed in ICU, engages slowly but pleasant in interaction. ADVANCE DIRECTIVES:: None on file. Has patient been provided with info about the portal/API?: Yes Did the patient sign up for the portal?: Yes CODE STATUS:: Full Code INSURANCE COVERAGE / FINANCIAL ISSUES:: MCR CURRENT HOME/COMMUNITY SERVICES/EQUIPMENT:: Methadone maintenance therapy, GI O/P at [facility] [place] PRIMARY CARE PHYSICIAN:: Andrzej Kimbrough POTENTIAL DISCHARGE NEEDS:: Evaluations for further needs, follow up appointments. PATIENT/FAMILY EDUCATION NEEDS:: Review discharge instructions, discuss Ask Me Three ANTICIPATED BARRIERS TO DISCHARGE:: None identified. TRANSPORTATION:: Via private vehicle with family. PLAN:: Remains on Zosyn, required use of BiPAP through the night. Frieda will return home when ready per MD. She will follow up with PCP and plan of care as described. CM continues to follow. PFSH All Active Problems (Updated 08/02/23 @ 14:29 by Patience Damian MD) DVT prophylaxis (Acute) Esophageal stricture (Acute) Bronchiectasis (Acute) Asthma exacerbation (Acute) Acute on chronic respiratory failure with hypoxia and hypercapnia (Acute) Discharge planning issues (Acute) Aspiration into airway (Chronic) Acute on chronic respiratory failure with hypoxemia (Acute) On deep vein thrombosis (DVT) prophylaxis (Acute) Bilateral leg edema (Chronic) Constipation (Chronic) Esophageal abnormality (Acute) Opioid use disorder, severe, on maintenance therapy (Chronic) GERD (gastroesophageal reflux disease) (Chronic) Hypothyroid (Chronic) Anxiety (Chronic 03/27/14) COPD (chronic obstructive pulmonary disease) (Chronic) Recurrent aspiration pneumonia (Acute) Bronchitis (Acute) Distal radius fracture (Acute) Medical History Abnormal auditory perception (03/29/14) Trouble in sleeping Depression History of drug abuse Irregular heart rhythm Hypertension Surgical History History of thyroidectomy Social History Smoking/Tobacco Use Status: Former Tobacco Use Quit Date: 06/13/99 Smoking risk assessment performed?: Yes Alcohol Intake: never Drug use: Current Sobriety Substance use type: former substance user Housing: apartment Current gender identity: female Do you feel safe at home: Yes Do you feel safe in your relationship?: Yes SDOH(Care Management) Screening Will the Patient Participate in the Screening?: Yes Do you worry about having a steady place to live?: yes Problems where you live: pests such as bugs, ants or mice and mold In the past 12 months, have you had to go without electric, gas, oil or water in your home?: no Have you or anyone in your house had to go without enough food to eat?: no Has lack of transportation kept you from medical appointments or from doing things needed for daily living?: yes Has anyone in your support network made you feel unsafe for any reason?: no Social Determinants of Health Comments(SDOH Details): Entry way, on first 3 steps the drain gutter leaks causing ice buildup on steps. Landlord sent someone to fix it--only partial fix was done per patient. Health Related Social Needs Health related social needs: inadequate housing(Z59.1), housing instability, housed, with risk of homelessness(Z59.811) and transportation insecurity(Z59.82)
[2023-08-01] MEDS: ACETAMINOPHEN 1,000 MG/100 ML BTL 400 MG IVPB (18:06)
[2023-08-01] MEDS: Senna TAB 1 TAB PO (21:52)
[2023-08-01] MEDS: Zolpidem 5 MG TAB PO (21:55)
[2023-08-01] MEDS: Simvastatin 10 MG TAB PO (21:56)
[2023-08-01] MEDS: Mirtazapine 15 MG TAB PO (21:57)
[2023-08-01] MEDS: Mirtazapine 15 MG TAB 45 MG PO (21:58)
[2023-08-02] VITALS (32 sets, daily range): BP systolic 102–129; BP diastolic 60–80; PULSE 57–107; RESP 4–24; TEMP 36.5–37.3; O2SAT 77–97
--- NOTE | 2023-08-02 | DI.US_ITS ---
Exam(s) US EXTREMITY VENOUS BI EXAM: US EXTREMITY VENOUS BI CLINICAL HISTORY: BLE edema, concern for a DVT. TECHNIQUE: Bilateral lower extremity venous ultrasound performed using grayscale, color-flow, and sp ectral Doppler analysis. COMPARISON: No exams were available for comparison FINDINGS: The right common femoral, femoral and popliteal veins demonstrate normal compressibility, augmentatio n, and color Doppler. The posterior tibial veins are patent. The saphenofemoral junction is unremark able. There is no evidence of a Koenig's cyst. The soft tissues are unremarkable. The left common femoral, femoral and popliteal veins demonstrate normal compressibility, augmentation , and color Doppler. The posterior tibial veins are patent. The saphenofemoral junction is unremarka ble. There is no evidence of a Koenig's cyst. The soft tissues are unremarkable. IMPRESSION: 1. No evidence of a right lower extremity DVT. 2. No evidence of a left lower extremity DVT. DATA REPOSITORY:
[2023-08-02] MEDS: PIPERACILLIN/TAZO 3.375 GM in Normal Saline 50 ML IVPB ×4 (00:18→18:08)
[2023-08-02] MEDS: Levothyroxine 100 MCG TAB 200 MCG PO (06:30)
[2023-08-02] MEDS: dilTIAZem 30 MG TAB PO ×3 (06:30→21:13)
[2023-08-02 07:19] LABS: HCT 39.4 % (36.0-46.0); HGB 12.1 g/dL (11.2-15.7); MCH 27.4 pg (27.0-33.0); MCHC 30.7 % (32.0-36.0); MCV 89 fL (80-95); MPV 9.7 fL (8.0-11.0); Platelet Count 239 10^3/uL (130-400); RBC 4.42 10^6/uL (3.93-5.22); RDW 14.3 % (11.7-14.6); RDW-SD 46.5 fL; WBC 7.53 10^3/uL (4.4-10.8)
[2023-08-02 07:35] LABS: Anion Gap 5.1 mmol/L (3-11); BUN 9 mg/dL (7-18); CO2 37.9 mmol/L (21.0-32.0); Calcium 9.1 mg/dL (8.5-10.1); Chloride 103 mmol/L (98-107); Estimated GFR 62.52 (mL/min/1.73m2); Glucose 82 mg/dL (74-106); Potassium 3.1 mmol/L (3.5-5.1); Sodium 146 mmol/L (136-145)
[2023-08-02] MEDS: Budesonide/Formoterol 160/4.5 6 GM 60 PUFF INH IH ×2 (07:51→21:18)
[2023-08-02] MEDS: Tiotropium Bromide-Respimat 10 PUFF INH 2 PUFF IH (07:51)
[2023-08-02] MEDS: Albuterol/Ipratropium 3 ML UPD VIAL UPD ×4 (07:52→21:12)
[2023-08-02] MEDS: Normal Saline Flush 10 ML SYR IVP ×3 (08:16→20:05)
[2023-08-02] MEDS: Methadone Liquid 10 MG/ML 98 MG PO (08:16)
[2023-08-02] MEDS: Enoxaparin 40 MG/0.4 ML SYR SC ×2 (08:17→20:05)
[2023-08-02] MEDS: Potassium Chloride Liquid 20 MEQ PKT 40 MEQ PO (08:18)
[2023-08-02] MEDS: Pantoprazole 40 MG TABCR PO (08:19)
[2023-08-02] MEDS: Docusate Sodium 100 MG CAP 200 MG PO (08:19)
[2023-08-02] MEDS: Spironolactone 25 MG TAB PO (08:19)
[2023-08-02] MEDS: guaiFENesin 600 MG TABCR PO (08:20)
[2023-08-02] MEDS: Furosemide 20 MG TAB PO ×2 (08:20→16:28)
[2023-08-02] MEDS: guaiFENesin/D-METHORPHAN HB 5 ML CUP 10 ML PO ×4 (08:36→20:05)
--- NOTE | 2023-08-02 08:58 | W.PULMCC ---
General Date of Service Date of service: 08/02/23 Time of Service: 08:58 Reason for Admission to ICU: Hypoxic respiratory failure Assessment and Plan Assessment and plan (1) Acute on chronic respiratory failure with hypoxia and hypercapnia: Status: Acute (2) Asthma exacerbation: Status: Acute (3) Aspiration into airway: Status: Chronic Qualifiers: Encounter type: initial encounter Qualified Code(s): T17.908A - Unspecified foreign body in respiratory tract, part unspecified causing other injury, initial encounter (4) Obesity hypoventilation syndrome: Status: Acute (5) Hypokalemia: Status: Resolved (6) Bronchiectasis: Status: Acute Assessment and plan: This is a63 yo admitted to the ICU for acute on chronic hypercapnic and hypoxic respiratory failure. She has been liberated from BiPAP today and is looking well. Her baseline O2 is 1.5LPM so she is still hypoxic. I think the cause of her respiratory failure and her recurrent hospitalization is likely related to hypercapnia, probably from OHS. Given her recurrent and frequent hospitalizations, it seems getting her a BiPAP upon discharge will help prevent further exacerbations and hospitalizations. We will work on qualifying her for this during this admission. I doubt she truly has COPD given her minimal smoking history, but I do think she does likely have asthma and with her chronic aspiration issues, she has develops focal RLL and lingular bronchiectasis. Recommendations Pulmonary: Acute on chronic hypoxic and hypercapnic respiratory failure - continue to wean NC as tolerated - recommend BiPAP at night - IS and mobilization OHS - when she is closer the her baseline O2 needs: - inpatient spirometry - morning ABG after a night without BiPAP - overnight oximetry on 1.5LPM - if her ABG PaCO2 >/= 45mmHg, her FEV1/FVC>/= 70%, and her overnight oximetry shows >5min hypoxia she will qualify for BiPAP at home - i will arrange f/u appt for her with me Asthma exacerbation - continue prednisone 40mg for 7 days total, then 30mg for 3 days, 20mg for 3 days, 10mg for 3 days, 5mg for 3 days - continue Symbicort - prn nebs Bronchiectasis - VibraPEP Aspiration - proper diet and aspiration precautions - can continue antibiotics for a total of 5 days of therapy Cardiac: No active concerns Renal: Hypokalemia - replete to 4.0 I&O: Intake & Output 07/30/23 07/31/23 08/01/23 08/02/23 23:59 23:59 23:59 23:59 Intake Total 1620 / 1620 1560 / 1560 590 / 590 Output Total 2900 / 2900 2575 / 2575 350 / 350 Balance -1280 / -1280 -1015 / -1015 240 / 240 Weight 121.3 kg 119.9 kg 117 kg Daily Fluid Goal:: negative to even GI Nutrition: Aspiration appropriate diet Date of Last Bowel Movement: 07/30/23 Infectious Disease: Possible aspiration PNA - continue abx for 5 days total Hematologic: No acute concerns Neurologic: No acute concerns Endocrine: No acute concerns Lines: PIV Code Status: Resuscitation Status Full Code Subjective Critical and life-threatening events over the past 24 hours: This is a 63 yo admitted on 07/31/23 for respiratory failure thought to be a combination of COPD and aspiration. She was started on prednisone and Zosyn. She developed dyspnea that was though to be due to bronchospasm and placed on BiPAP which seemed to help and she was transferred to the ICU. She has remained on BiPAP and appears as though she was transitioned to nasal cannula this morning. She has a 7.5 pack year smoking history and quit in 1999. She is on Symbicort as an outpatient which can be continued. She states she has never been formally tested for COPD. She does have CO2 retention, she has never had a sleep study. She states her breathing has improved and is going well. She does not notice when she aspirates. Exam Narrative Exam Narrative: Gen: NAD, normal respiratory effort, well-nourished HENT: PERRL, nasal turbinates normal without erythema or inflammation, moist oral mucosa, Mallampati 2, No LAD or JVD Chest: No respiratory distress, normal appearance of chest, clear to auscultation bilaterally, diffuse bilateral expiratory wheezing Heart: regular rate and rhythym, no murmurs, rubs or gallops Abdomen: Non-distended, soft, non tender Extremities: No clubbing, 3+ edema, no cyanosis, rashes Neuro: AAOx3 , non focal Psych: cooperative, appropriate mental affect Most Recent VS/Results Last Vital Signs Temp 36.7 C 08/02/23 07:43 Pulse 65 08/02/23 07:54 Resp 16 08/02/23 07:54 BP 113/70 08/02/23 07:43 Pulse Ox 91 L 08/02/23 08:06 Laboratory Results - last 24 hr 08/02/23 05:49 WBC 7.53 RBC 4.42 Hgb 12.1 Hct 39.4 MCV 89 MCH 27.4 MCHC 30.7 L RDW 14.3 Plt Count 239 MPV 9.7 Sodium 146 H Potassium 3.1 L Chloride 103 Carbon Dioxide 37.9 H Anion Gap 5.1 BUN 9 Creatinine 1.0 Est GFR (CKD-EPI 2020) 62.52 Glucose 82 Calcium 9.1 Review of Systems All systems reviewed & are unremarkable except as noted in HPI and below Time spent with patient Time spent in Critical Care: 45 Time spent in Critical care included: Coordination of care, Chart review, Documenting critically ill care, Time at immediate bedside and Discussing critically ill care with other medical staff
[2023-08-02] MEDS: methylPREDNISolone SUCC 125 MG VIAL IVP (09:46)
--- NOTE | 2023-08-02 14:06 | W.PM.PROGNOT ---
Date of Service Date of service: 08/02/23 Time of Service: 13:30 Assessment and Plan Assessment and plan (1) Acute on chronic respiratory failure with hypoxia and hypercapnia: Status: Acute Assessment and plan: Probably related to asthma exacerbation, less likely COPD, as well as OHS. Down to 4L of O2 by NC. Evaluated by pulmonology: will continue current treatment. Will evaluate the patient if she qualifies for BiPAP. I do think it is a good idea for her to eventually get off of methadone. She needs an EGD/dilatation to prevent future aspiration events. (2) Asthma exacerbation: Status: Acute Assessment and plan: As above - add steroids (3) Obesity hypoventilation syndrome: Status: Suspected Assessment and plan: Needs spirometry prior to discharge. Considering BiPAP for discharge. (4) COPD with acute exacerbation: Status: Ruled-out Assessment and plan: ? a true COPD exacerbation. The patient does not have much of a smoking hx. (5) Bronchiectasis: Status: Acute Assessment and plan: As above (6) Aspiration into airway: Status: Chronic Assessment and plan: Suspected esophageal stricture by moidified barium swallowing study. Needs an EGD. Continue modified diet. Qualifiers: Encounter type: initial encounter Qualified Code(s): T17.908A - Unspecified foreign body in respiratory tract, part unspecified causing other injury, initial encounter (7) Esophageal stricture: Status: Acute Assessment and plan: As above - needs outpatient EGD. (8) Bilateral leg edema: Status: Chronic Assessment and plan: Continue home diuretics, TEDs. Obtain venous dopplers of BLEs. (9) Hypothyroid: Status: Chronic Assessment and plan: TSH 0.56. Contiue levothyroxine at current dose. Qualifiers: Hypothyroidism type: acquired Qualified Code(s): E03.9 - Hypothyroidism, unspecified (10) GERD (gastroesophageal reflux disease): Status: Chronic Assessment and plan: Continue protonix. Qualifiers: Esophagitis presence: esophagitis presence not specified Qualified Code(s): K21.9 - Gastro-esophageal reflux disease without esophagitis (11) Constipation: Status: Chronic Assessment and plan: Continue colase. Add miralax. Qualifiers: Constipation type: drug induced constipation Qualified Code(s): K59.03 - Drug induced constipation (12) Opioid use disorder, severe, on maintenance therapy: Status: Chronic Assessment and plan: Continue methadone with plans for an outpatient taper (13) DVT prophylaxis: Status: Acute Assessment and plan: SC enoxaparin (14) Discharge planning issues: Status: Acute Assessment and plan: Full code Continues to require hospitalization Keep in the ICU. Discussed with Dr Pitts Subjective Subjective Interval history since last seen: is feeling better. She is on NC 4L of O2. She denies dizziness, CP, SOB, n/v. She states that she had not noticed issues while on a pureed diet. She is working with her methadone clinic to start tapering it off. She did not follow up with [facility] as she was supposed - states she thinks her ride did not come or something. Exam Narrative Exam Narrative: General: Pleasant middle-aged female who appears to be somnolent, sitting up at the edge of the bed, A&Ox3, on 4L of O2 by NC HEENT: EOMI, MMM Heart: RRR, no m/r/g Lungs: wheezing on expiration B Abdomen: soft, nontender, nondistended Extremities: edema BLEs +2, in TEDs Objective Last Vital Signs Temp 36.8 C 08/02/23 11:50 Pulse 68 08/02/23 12:01 Resp 14 08/02/23 12:02 BP 113/72 08/02/23 12:01 Pulse Ox 88 L 08/02/23 13:47 Laboratory Results - last 24 hr 08/02/23 05:49 WBC 7.53 RBC 4.42 Hgb 12.1 Hct 39.4 MCV 89 MCH 27.4 MCHC 30.7 L RDW 14.3 Plt Count 239 MPV 9.7 Sodium 146 H Potassium 3.1 L Chloride 103 Carbon Dioxide 37.9 H Anion Gap 5.1 BUN 9 Creatinine 1.0 Est GFR (CKD-EPI 2020) 62.52 Glucose 82 Calcium 9.1 Time Spent with Patient Time Spent with Patient: 35-49 minutes Time was spent: preparing to see the patient(eg.review tests), obtaining and/or reviewing separately otained hiistory, ordering medications,tests, procedures, referring, communicating with other health healthcare financial analyst, indepentently interpreting results, counseling the patient and care coordination
--- NOTE | 2023-08-02 15:22 | PDOC.CMPRO ---
Date of service: 08/02/23 Time of Service: 15:22 Care Management Progress Note Progress Note Text Progress Note Text: S/O: Frieda was sitting on the side of the bed, her long braid at her side. She reported always having long hair. The rasheed of her speech remains delayed, though when permitted ample time to respond, her responses are complete and thoughtful. Frieda identified utilizing [facility] for medical transports to [facility] and shared that she cancelled her last transport as she was too congested and the appointment prior to that, [facility] did not have a ride available. RN entered room during CM interaction and reviewed need for GI F/U at [facility] [place]. CM followed up with Dr. Damian who stated the Communications Strategist would follow up for appointment. Fireda stated [facility] requires 48 hours notice prior to scheduling transport so she will coordinate once an appointment is secured. Frieda stated she could not attend Tuesday appointments as that is her [facility] day. A: 63 year old female admitted to [facility] 07/31/23 for COPD exacerbation, hypoxic respiratory failure P: Frieda will return home when ready per MD, anticipate she will transport via [facility], coordinated by CM. She will have outpatient follow up with [facility] for EGD. Her PCP is at [facility] as well, and she utilizes [facility] for transport. Frieda has weekly [facility] appointments on Fridays. Per MD, [facility] is working to coordinate BIPAP for home use, Frieda utilizes [place] for home O2 at baseline already. CM following. SDOH(Care Management) Screening Will the Patient Participate in the Screening?: Yes Do you worry about having a steady place to live?: yes Problems where you live: pests such as bugs, ants or mice and mold In the past 12 months, have you had to go without electric, gas, oil or water in your home?: no Have you or anyone in your house had to go without enough food to eat?: no Has lack of transportation kept you from medical appointments or from doing things needed for daily living?: yes Has anyone in your support network made you feel unsafe for any reason?: no Social Determinants of Health Comments(SDOH Details): Entry way, on first 3 steps the drain gutter leaks causing ice buildup on steps. Landlord sent someone to fix it--only partial fix was done per patient. Health Related Social Needs Health related social needs: inadequate housing(Z59.1), housing instability, housed, with risk of homelessness(Z59.811) and transportation insecurity(Z59.82)
[2023-08-02] MEDS: Acetaminophen 325 MG TAB 650 MG PO (20:44)
[2023-08-02] MEDS: Simvastatin 10 MG TAB PO (21:13)
[2023-08-02] MEDS: Zolpidem 5 MG TAB PO (21:13)
[2023-08-02] MEDS: Senna TAB 1 TAB PO (21:13)
[2023-08-02] MEDS: Mirtazapine 15 MG TAB PO (21:14)
[2023-08-02] MEDS: Mirtazapine 15 MG TAB 45 MG PO (21:14)
[2023-08-03] VITALS (45 sets, daily range): BP systolic 108–180; BP diastolic 58–92; PULSE 68–123; RESP 2–22; TEMP 31–37.3; O2SAT 82–94
--- NOTE | 2023-08-03 | DI.RAD_ITS ---
Exam(s) XR PORTABLE CHEST AP EXAM: XR PORTABLE CHEST AP CLINICAL HISTORY: worsening respiratory failure TECHNIQUE: 2D digital imaging was performed of the chest. Two images were obtained. AP views were obtained. COMPARISON: CT CT CHEST WO from 05/20/2023 CR XR CHEST 2V PA LATERAL from 05/25/2023 CR,XR XR PORTABLE CHEST AP from 07/31/2023 FINDINGS: MEDIASTINUM: Normal. HEART: Normal. PULMONARY VASCULATURE: Normal. LUNGS: Clear. PLEURAL SPACE: There is again seen blunting of the left costophrenic angle which may represent a smal l pleural effusion or scarring. BONE:Within normal limits for the patient's age. Right convex thoracic scoliosis. OTHER FINDINGS:Normal. IMPRESSION: No change in appearance of the chest x-ray compared to the prior examination. Persistent blunting of the left costophrenic angle which may represent a small effusion or scarring. DATA REPOSITORY: RADIATION DOSE DELIVERED:
[2023-08-03] MEDS: PIPERACILLIN/TAZO 3.375 GM in Normal Saline 50 ML IVPB ×4 (00:23→18:00)
[2023-08-03] MEDS: guaiFENesin/D-METHORPHAN HB 5 ML CUP 10 ML PO ×5 (04:30→18:00)
[2023-08-03] MEDS: Albuterol 2.5 MG/3 ML INH SOLN VIAL UPD (05:08)
[2023-08-03] MEDS: Levothyroxine 100 MCG TAB 200 MCG PO (05:25)
--- NOTE | 2023-08-03 05:51 | NUR.NOTE ---
0500-pt got OOB to commode to void and becane very SOB. Ret'd to bed but unable to catch her breath. Respiratory called for advice, Returned call and told nurse to turn her bipap up to 100 per cent for a whle and leave it on her. I asked her if she was coming in and she replied no, I.m home. Placed on bipap and put oj 100 percent for a short time. Responded well to increased o2. Left on bipap with percent at 75% satting now between 88-92. given sheldon arrington as well. Curtis MCDONALD
[2023-08-03 06:50] LABS: Abs Immature Grans 0.03 10^3/uL (0.0-0.06); Absolute Lymphocyte Count 0.86 10^3/uL (1.2-3.4); Absolute Monocyte Count 0.39 10^3/uL (0.1-0.8); Absolute Neutrophil Count 7.67 10^3/uL (1.2-6.7); HCT 40.7 % (36.0-46.0); HGB 12.5 g/dL (11.2-15.7); Immature Grans % 0.3; Lymphocytes % 9.6; MCH 27.2 pg (27.0-33.0); MCHC 30.7 % (32.0-36.0); MCV 89 fL (80-95); MPV 9.8 fL (8.0-11.0); Monocytes % 4.4; Neutrophils % 85.7; Platelet Count 252 10^3/uL (130-400); RBC 4.59 10^6/uL (3.93-5.22); RDW 14.2 % (11.7-14.6); RDW-SD 45.7 fL; WBC 8.95 10^3/uL (4.4-10.8)
[2023-08-03] MEDS: dilTIAZem 30 MG TAB PO ×3 (06:52→22:56)
[2023-08-03 07:04] LABS: Anion Gap 9.2 mmol/L (3-11); BUN 11 mg/dL (7-18); CO2 33.8 mmol/L (21.0-32.0); Calcium 9.7 mg/dL (8.5-10.1); Chloride 101 mmol/L (98-107); Estimated GFR 62.52 (mL/min/1.73m2); Glucose 110 mg/dL (74-106); Magnesium 2.1 mg/dL (1.8-2.4); Potassium 3.6 mmol/L (3.5-5.1); Sodium 144 mmol/L (136-145)
[2023-08-03] MEDS: Albuterol/Ipratropium 3 ML UPD VIAL UPD ×4 (08:14→19:49)
[2023-08-03] MEDS: Budesonide/Formoterol 160/4.5 6 GM 60 PUFF INH IH ×2 (08:17→20:00)
[2023-08-03] MEDS: Tiotropium Bromide-Respimat 10 PUFF INH 2 PUFF IH (08:17)
[2023-08-03] MEDS: Polyethylene Glycol 3350 17 GM PACKET PO (09:17)
[2023-08-03] MEDS: Potassium Chloride Liquid 20 MEQ PKT 40 MEQ PO (09:23)
[2023-08-03] MEDS: predniSONE 20 MG TAB 40 MG PO (09:24)
[2023-08-03] MEDS: Furosemide 20 MG TAB PO ×2 (09:24→18:00)
[2023-08-03] MEDS: Spironolactone 25 MG TAB PO (09:24)
[2023-08-03] MEDS: Pantoprazole 40 MG TABCR PO (09:24)
[2023-08-03] MEDS: Docusate Sodium 100 MG CAP 200 MG PO (09:24)
[2023-08-03] MEDS: Enoxaparin 40 MG/0.4 ML SYR SC ×2 (09:25→19:51)
[2023-08-03] MEDS: Methadone Liquid 10 MG/ML 98 MG PO (09:43)
[2023-08-03] MEDS: Normal Saline Flush 10 ML SYR IVP ×2 (09:43→19:51)
[2023-08-03 10:24] LABS: BE (Venous) 12 mmol/L (-2-3); HCO3 (Venous) 36 mmol/L (23-28); O2 Sat (Venous) 78 %; TCO2 (Venous) 32 mmol/L (24-29); pCO2 (Venous) 52 mmHg (41-51); pH (Venous) 7.45 (7.31-7.41); pO2 (Venous) 43 mmHg
[2023-08-03] MEDS: Furosemide 20 MG/2 ML VIAL IVP (12:51)
--- NOTE | 2023-08-03 13:20 | CMPROGNOTE_ITS ---
Date of service: 08/03/23 Time of Service: 13:20 Care Management Progress Note Progress Note Text Progress Note Text: S/O: Laurence was sitting up in bed when CM met with her. She stated that she does not feel that she is doing great, but maybe a bit better than when she arrived. Per RN, she transitioned from Bipap to high flow nasal cannula. She had visitors today, and is very tired, so CM kept the meeting short. CM will continue to follow. A: 63 year old female admitted to [facility] 07/31/23 for COPD exacerbation, hypoxic respiratory failure P: Frieda will return home when ready per MD, anticipate she will transport via [facility], coordinated by CM. She will have outpatient follow up with [facility] for EGD. Her PCP is at [facility] as well, and she utilizes [facility] for transport. Frieda has weekly [facility] appointments on Fridays. Per MD, RT is working to coordinate BIPAP for home use, Frieda utilizes [place] for home O2 at baseline already. CM following. SDOH(Care Management) Screening Will the Patient Participate in the Screening?: Yes Do you worry about having a steady place to live?: yes Problems where you live: pests such as bugs, ants or mice and mold In the past 12 months, have you had to go without electric, gas, oil or water in your home?: no Have you or anyone in your house had to go without enough food to eat?: no Has lack of transportation kept you from medical appointments or from doing things needed for daily living?: yes Has anyone in your support network made you feel unsafe for any reason?: no Social Determinants of Health Comments(SDOH Details): Entry way, on first 3 steps the drain gutter leaks causing ice buildup on steps. Landlord sent someone to fix it--only partial fix was done per patient. Health Related Social Needs Health related social needs: inadequate housing(Z59.1), housing instability, housed, with risk of homelessness(Z59.811) and transportation insecurity(Z59.82)
--- NOTE | 2023-08-03 14:03 | PHA.REVIEW2 ---
Pharmacy Admission Review Admission Clinical Review Admission Pharmacy Review: DVT prophylaxis (Acute) Esophageal stricture (Acute) Bronchiectasis (Acute) Asthma exacerbation (Acute) Acute on chronic respiratory failure with hypoxia and hypercapnia (Acute) Discharge planning issues (Acute) Acute on chronic respiratory failure with hypoxemia (Acute) On deep vein thrombosis (DVT) prophylaxis (Acute) No Known Allergies Allergy (Unverified 07/31/23 09:55) Resuscitation Status Full Code Height 5 ft 4.5 in Weight 117 kg Comments Comments/Follow Ups: Per morning meeting patient seems slightly worse today, plan is to increase diuretics Pharmacy Admission Review Renal Dosing Renal Dosing: BUN 11 mg/dL (7-18) 08/03/23 05:25 Creatinine 1.0 mg/dL (0.55-1.02) 08/03/23 05:25 Medications needing adjustments: Reviewed (CrCl 71.1 mL/min) Anticoagulation Anticoagulation: Hgb 12.5 g/dL (11.2-15.7) 08/03/23 05:25 Hct 40.7 % (36.0-46.0) 08/03/23 05:25 Plt Count 252 10^3/uL (130-400) 08/03/23 05:25 INR 1.1 (0.9-1.1) 07/31/23 09:37 Creatinine 1.0 mg/dL (0.55-1.02) 08/03/23 05:25 DVT Prophylaxis: Reviewed Medications: Enoxaparin (40mg BID (BMI 43.6)) Opiate Usage Evaluate Pain Scale/Pains Meds: Reviewed (On methadone for OUD, dose was confirmed with [facility]) Scheduled Bowel Reg ordered if on Opiates?: Yes (Docusate/Miralax) Relevant Labs Relevant Labs: Sodium 144 mmol/L (136-145) 08/03/23 05:25 Potassium 3.6 mmol/L (3.5-5.1) 08/03/23 05:25 Chloride 101 mmol/L (98-107) 08/03/23 05:25 Magnesium 2.1 mg/dL (1.8-2.4) 08/03/23 05:25 Electrolytes, C-Reactive P, ESR: Reviewed (Glucose 110) Cardiac Review Cardiac Review: Troponin I < 50 ng/L (< or =60) 07/31/23 12:53 NT-Pro-B Natriuret Pep 38 pg/mL (<300) 07/31/23 09:37 BP, HR, EF%: Reviewed (HR WNL (was in the 90s this AM), BP 154/92, Ox 91 on NC 40) QTc Review QTc: Reviewed (448 on 07/31/23) IV to PO Switch IV Medications: Reviewed (Zosyn) Home Meds Home Med List reviewed: Reviewed Relevent Home Meds Not ordered & why?: Dexlansoprazole - has order for pantoprazole Current Meds Current Medication Order Review: Reviewed Pharmacy Antibiotic Review Pharmacy Antibiotic Activity: 48 hour review, C/S review and Reviewed, no change Comments: Currently on Zosyn 3.375mg q6h, day 3. Blood cultures showing no growth at 72 hours. Comments Comments/Follow Ups: Per morning meeting patient seems slightly worse today, plan is to increase diuretics
--- NOTE | 2023-08-03 16:54 | PGE_ITS ---
Date of Service Date of service: 08/03/23 Time of Service: 09:45 Assessment and Plan Assessment and plan (1) Acute on chronic respiratory failure with hypoxia and hypercapnia: Status: Acute Assessment and plan: Probably related to recurrent episodes of aspiration, asthma exacerbation, OHS, and less likely COPD. Keep in the ICU on BiPAP tonight with attempts to wean O2. Evaluated by pulmonology. I do not think tonight would be the best night for ABG without BiPAP overnight, but we do need to see if she would qualify for BiPAP. I do think it is a good idea for her to eventually get off of methadone. She needs an EGD/dilatation to prevent future aspiration events. Did receive a dose of furosemide today. (2) Asthma exacerbation: Status: Acute Assessment and plan: As above - continue steroids. (3) Obesity hypoventilation syndrome: Status: Suspected Assessment and plan: Needs spirometry prior to discharge. Considering BiPAP for discharge. (4) COPD with acute exacerbation: Status: Ruled-out Assessment and plan: ? a true COPD exacerbation. The patient does not have much of a smoking hx. (5) Bronchiectasis: Status: Acute Assessment and plan: As above (6) Aspiration into airway: Status: Chronic Assessment and plan: Suspected esophageal stricture by moidified barium swallowing study. Needs an EGD. Continue modified diet. Qualifiers: Encounter type: initial encounter Qualified Code(s): T17.908A - Unspecified foreign body in respiratory tract, part unspecified causing other injury, initial encounter (7) Esophageal stricture: Status: Chronic Assessment and plan: As above - needs outpatient EGD. (8) Bilateral leg edema: Status: Chronic Assessment and plan: Continue home diuretics, TEDs. Venous dopplers negative for DVT. Did receive a dose of furosemide today. Continue TEDs. (9) Hypothyroid: Status: Chronic Assessment and plan: TSH 0.56. Contiue levothyroxine at current dose. Qualifiers: Hypothyroidism type: acquired Qualified Code(s): E03.9 - Hypothyroidism, unspecified (10) GERD (gastroesophageal reflux disease): Status: Chronic Assessment and plan: Continue protonix. Qualifiers: Esophagitis presence: esophagitis presence not specified Qualified Code(s): K21.9 - Gastro-esophageal reflux disease without esophagitis (11) Constipation: Status: Chronic Assessment and plan: Continue colase + miralax. Qualifiers: Constipation type: drug induced constipation Qualified Code(s): K59.03 - Drug induced constipation (12) Opioid use disorder, severe, on maintenance therapy: Status: Chronic Assessment and plan: Continue methadone with plans for an outpatient taper (13) DVT prophylaxis: Status: Acute Assessment and plan: SC enoxaparin (14) Discharge planning issues: Status: Acute Assessment and plan: Full code Continues to require hospitalization Keep in the ICU. Total Critical Care Time 40 minutes. Subjective Subjective Interval history since last seen: is doing worse today. She spent the night on 6L of O2 by NC, not on BiPAP. However, at 5 am she had taken off her NC and desaturated to the 70s on RA. She then had to be placed back on BiPAP with settings of 12/6 75% FiO2. This did eventually get weaned down to 45% this morning. She ate on 8L of O2 by NC. The patient does not recall any aspiration events. She agrees to wear the BiPAP tonight. Exam Narrative Exam Narrative: General: Pleasant middle-aged female who is A&Ox3, coughing, BiPAP on. HEENT: EOMI, MMM Heart: RRR, no m/r/g Lungs: wheezing on expiration B, no rales Abdomen: soft, nontender, nondistended Extremities: edema BLEs +2, in TEDs Objective Last Vital Signs Temp 37.3 C 08/03/23 15:54 Pulse 82 08/03/23 16:20 Resp 16 08/03/23 16:13 BP 118/63 08/03/23 14:20 Pulse Ox 91 L 08/03/23 16:13 Laboratory Results - last 24 hr 08/03/23 08/03/23 05:25 10:18 WBC 8.95 RBC 4.59 Hgb 12.5 Hct 40.7 MCV 89 MCH 27.2 MCHC 30.7 L RDW 14.2 Plt Count 252 MPV 9.8 Immature Gran % 0.3 Neutrophils % 85.7 Lymphocytes % 9.6 Monocytes % 4.4 Eosinophils % 0.0 Basophils % 0.0 Nucleated RBC % 0.0 Absolute Neutrophils 7.67 H Absolute Lymphocytes 0.86 L Absolute Monocytes 0.39 Absolute Eosinophils 0.00 Absolute Basophils 0.00 VBG pH 7.45 H VBG pCO2 52 H VBG pO2 43 VBG HCO3 36 H VBG Total CO2 32 H VBG O2 Saturation 78 VBG Base Excess 12 H Sodium 144 Potassium 3.6 Chloride 101 Carbon Dioxide 33.8 H Anion Gap 9.2 BUN 11 Creatinine 1.0 Est GFR (CKD-EPI 2020) 62.52 Glucose 110 H Calcium 9.7 Magnesium 2.1 Objective Narrative Objective Narrative: CXR: pending Time Spent with Patient Time Spent with Patient: 35-49 minutes Time was spent: preparing to see the patient(eg.review tests), obtaining and/or reviewing separately otained hiistory, ordering medications,tests, procedures, referring, communicating with other health out of school hours care worker, indepentently interpreting results, counseling the patient and care coordination
--- NOTE | 2023-08-03 22:22 | NUR.NOTE ---
Pt transferred to med surg unit. Pt requested to take 2200 medications around 2230 and then bipap at [id number] hours. furnace cleaner aware and CLINICAL EDUCATOR aware of plan: Hand off report given to med surg charge nurse. Questions asked and answered. No further concerns at this time. Plan of care discussed and pt education provided.
[2023-08-03] MEDS: Zolpidem 5 MG TAB PO (22:55)
[2023-08-03] MEDS: Mirtazapine 15 MG TAB PO (22:56)
[2023-08-03] MEDS: Simvastatin 10 MG TAB PO (22:56)
[2023-08-03] MEDS: Mirtazapine 15 MG TAB 45 MG PO (22:56)
[2023-08-03] MEDS: Senna TAB 1 TAB PO (22:56)
[2023-08-04] VITALS (77 sets, daily range): BP systolic 96–142; BP diastolic 57–86; PULSE 55–100; RESP 2–25; TEMP 31–37; O2SAT 83–97
[2023-08-04] MEDS: guaiFENesin/D-METHORPHAN HB 5 ML CUP 10 ML PO ×5 (00:17→21:25)
[2023-08-04] MEDS: LORazepam 1 MG TAB PO (00:17)
[2023-08-04] MEDS: Normal Saline Flush 10 ML SYR IVP ×3 (00:18→22:36)
[2023-08-04] MEDS: Normal Saline 500 ML 30 ML IV (01:20)
[2023-08-04] MEDS: PIPERACILLIN/TAZO 3.375 GM in Normal Saline 50 ML IVPB ×4 (01:20→18:34)
[2023-08-04] MEDS: Levothyroxine 100 MCG TAB 200 MCG PO (06:23)
[2023-08-04] MEDS: Pantoprazole 40 MG TABCR PO (06:30)
[2023-08-04] MEDS: dilTIAZem 30 MG TAB PO ×3 (06:30→21:27)
[2023-08-04 06:33] LABS: Abs Immature Grans 0.04 10^3/uL (0.0-0.06); Absolute Basophil Count 0.01 10^3/uL (0.0-0.2); Absolute Eosinophil Count 0.01 10^3/uL (0.0-0.7); Absolute Lymphocyte Count 2.24 10^3/uL (1.2-3.4); Absolute Monocyte Count 0.65 10^3/uL (0.1-0.8); Absolute Neutrophil Count 5.77 10^3/uL (1.2-6.7); Basophils % 0.1; Eosinophils % 0.1; HCT 37.8 % (36.0-46.0); HGB 11.7 g/dL (11.2-15.7); Immature Grans % 0.5; Lymphocytes % 25.7; MCH 27.7 pg (27.0-33.0); MCV 90 fL (80-95); MPV 9.5 fL (8.0-11.0); Monocytes % 7.5; Neutrophils % 66.1; Platelet Count 225 10^3/uL (130-400); RBC 4.22 10^6/uL (3.93-5.22); RDW 14.6 % (11.7-14.6); RDW-SD 47.8 fL; WBC 8.72 10^3/uL (4.4-10.8)
[2023-08-04 06:51] LABS: Anion Gap 6.6 mmol/L (3-11); BUN 13 mg/dL (7-18); CO2 34.4 mmol/L (21.0-32.0); Chloride 103 mmol/L (98-107); Estimated GFR 62.52 (mL/min/1.73m2); Glucose 104 mg/dL (74-106); Magnesium 2.2 mg/dL (1.8-2.4); Potassium 3.2 mmol/L (3.5-5.1); Sodium 144 mmol/L (136-145)
[2023-08-04] MEDS: Albuterol 2.5 MG/3 ML INH SOLN VIAL UPD (06:52)
[2023-08-04 07:18] LABS: BE (Venous) 13 mmol/L (-2-3); HCO3 (Venous) 38 mmol/L (23-28); O2 Sat (Venous) 71 %; TCO2 (Venous) 35 mmol/L (24-29); pCO2 (Venous) 59 mmHg (41-51); pH (Venous) 7.42 (7.31-7.41); pO2 (Venous) 40 mmHg
--- NOTE | 2023-08-04 07:25 | PGE_ITS ---
Assessment and Plan Assessment and plan (1) Obesity hypoventilation syndrome: Status: Suspected (2) Bronchiectasis: Status: Acute (3) Asthma exacerbation: Status: Acute (4) Acute on chronic respiratory failure with hypoxia and hypercapnia: Status: Acute (5) Aspiration into airway: Status: Chronic Assessment and plan: This is a 63 yo admitted for acute on chronic hypercapnic and hypoxic respiratory failure and prior need for ICU. We should try and qualify her for BiPAP on discharge, but the testing (spirometry, am ABG and overnight ox) needs to be completed when she is closer to her baseline FiO2. I suspect she had an aspiration event which lead to her respiratory decompensation. She was transferred out of the ICU, but given her current O2 needs she should be transferred back in. Acute on chronic hypoxic and hypercapnic respiratory failure - continue to wean NC as tolerated - recommend BiPAP at night and wean FiO2 as able - IS and mobilization - PT consult ordered OHS - when she is closer the her baseline O2 needs: - inpatient spirometry - morning ABG after a night without BiPAP - overnight oximetry on 1.5LPM - if her ABG PaCO2 >/= 45mmHg, her FEV1/FVC>/= 70%, and her overnight oximetry shows >5min hypoxia she will qualify for BiPAP at home - i will arrange f/u appt for her with me Asthma exacerbation - continue prednisone 40mg for 7 days total, then 30mg for 3 days, 20mg for 3 days, 10mg for 3 days, 5mg for 3 days - continue Symbicort - ok to continue Spiriva - prn nebs Bronchiectasis - VibraPEP Aspiration - proper diet and aspiration precautions - can continue antibiotics for a total of 5 days of therapy Qualifiers: Encounter type: initial encounter Qualified Code(s): T17.908A - Unspecified foreign body in respiratory tract, part unspecified causing other injury, initial encounter General Date Of Service Date of service: 08/04/23 Time of Service: 07:26 Reason for Consult: Respiratory failure Subjective 24 Hour Events: On BiPAP overnight with FiO2 at 50% and now on HFNC at 56% and 40LPM Note Note: Jody says she is feeling fine. We discussed her decompensation and the need for her to go back to the ICU. She seemed confused by this. Exam Narrative Exam Narrative: Gen: NAD, normal respiratory effort, well-nourished HENT: PERRL, nasal turbinates normal without erythema or inflammation, moist oral mucosa, Mallampati 2, No LAD or JVD Chest: No respiratory distress, normal appearance of chest, clear to auscultation bilaterally, diffuse bilateral expiratory wheezing Heart: regular rate and rhythym, no murmurs, rubs or gallops Abdomen: Non-distended, soft, non tender Extremities: No clubbing, 3+ edema, no cyanosis, rashes Neuro: AAOx3 , non focal Psych: cooperative, appropriate mental affect Objective Last Vital Signs Temp 35.6 C L 08/04/23 03:12 Pulse 60 08/04/23 03:12 Resp 15 08/04/23 05:00 BP 134/80 08/04/23 03:12 Pulse Ox 90 L 08/04/23 03:12 Laboratory Results - last 24 hr 08/03/23 08/04/23 08/04/23 10:18 05:38 07:10 WBC 8.72 RBC 4.22 Hgb 11.7 Hct 37.8 MCV 90 MCH 27.7 MCHC 31.0 L RDW 14.6 Plt Count 225 MPV 9.5 Immature Gran % 0.5 Neutrophils % 66.1 Lymphocytes % 25.7 Monocytes % 7.5 Eosinophils % 0.1 Basophils % 0.1 Nucleated RBC % 0.0 Absolute Neutrophils 5.77 Absolute Lymphocytes 2.24 Absolute Monocytes 0.65 Absolute Eosinophils 0.01 Absolute Basophils 0.01 VBG pH 7.45 H 7.42 H VBG pCO2 52 H 59 H VBG pO2 43 40 VBG HCO3 36 H 38 H VBG Total CO2 32 H 35 H VBG O2 Saturation 78 71 VBG Base Excess 12 H 13 H Sodium 144 Potassium 3.2 L Chloride 103 Carbon Dioxide 34.4 H Anion Gap 6.6 BUN 13 Creatinine 1.0 Est GFR (CKD-EPI 2020) 62.52 Glucose 104 Calcium 9.0 Magnesium 2.2 Results Medications Medications: Active Medications Generic Name Dose Route Start Last Admin Trade Name Freq PRN Reason Stop Dose Admin Acetaminophen 650 mg 08/02/23 08:53 08/02/23 20:44 Acetaminophen 325 Mg Tab PO 650 mg Q6H PRN PRN Administration Albuterol Sulfate 2.5 mg 07/31/23 14:31 08/04/23 06:52 Albuterol 2.5 Mg/3 Ml Inh Soln Vial UPD 2.5 mg Q2H PRN PRN Administration Albuterol/Ipratropium 3 ml 07/31/23 16:00 08/03/23 19:49 Albuterol/Ipratropium 3 Ml Upd Vial UPD 3 ml QID EUGENIO Administration Budesonide/Formoterol Fumarate 2 puff 07/31/23 20:00 08/03/23 20:00 Budesonide/Formoterol 160/4.5 6 Gm 60 Puff Inh IH 2 puffs BID EUGENIO Administration Device 1 each 07/31/23 14:31 Inhaler, Assist Device MC DIRECTED [facility] Diltiazem HCl 30 mg 07/31/23 14:00 08/04/23 06:30 Diltiazem 30 Mg Tab PO 30 mg Q8H EUGENIO Administration Docusate Sodium 200 mg 08/01/23 08:30 08/03/23 09:24 Docusate Sodium 100 Mg Cap PO 200 mg DAILY EUGENIO Administration Enoxaparin Sodium 40 mg 08/02/23 20:00 08/03/23 19:51 Enoxaparin 40 Mg/0.4 Ml Syr SC 40 mg BID EUGENIO Administration Furosemide 20 mg 08/01/23 16:00 08/03/23 18:00 Furosemide 20 Mg Tab PO 20 mg BID DIURETIC EUGENIO Administration Guaifenesin/Dextromethorphan 10 ml 08/04/23 00:00 08/04/23 06:30 Guaifenesin/D-Methorphan Hb 5 Ml Cup PO 10 ml Q4H EUGENIO Administration Piperacillin Sod/Tazobactam 50 mls @ 100 mls/hr 07/31/23 18:00 08/04/23 06:31 Sod 3.375 gm/ Sodium Chloride IVPB 100 mls/hr Q6H EUGENIO Administration Sodium Chloride 500 mls @ 0 mls/hr 07/31/23 17:50 08/04/23 02:00 Saline 500ml Bag IV 0 mls/hr PRN PRN Infusion As Directed IV Miscellaneous Supplies 1 each 07/31/23 09:15 Iv Access IV DIRECTED [facility] Levothyroxine Sodium 200 mcg 08/02/23 06:00 08/04/23 06:23 Levothyroxine 100 Mcg Tab PO 200 mcg DAILY@0600 EUGENIO Administration Lorazepam 1 mg 07/31/23 14:31 08/04/23 00:17 Lorazepam 1 Mg Tab PO 1 mg Q6H PRN PRN Administration Methadone HCl 98 mg 07/31/23 15:00 08/03/23 09:43 Methadone Liquid 10 Mg/Ml PO 98 mg DAILY EUGENIO Administration Mirtazapine 45 mg 07/31/23 22:00 08/03/23 22:56 Mirtazapine 15 Mg Tab PO 45 mg HS EUGENIO Administration Mirtazapine 15 mg 07/31/23 22:00 08/03/23 22:56 Mirtazapine 15 Mg Tab PO 15 mg HS EUGENIO Administration Pantoprazole Sodium 40 mg 08/01/23 07:30 08/04/23 06:30 Pantoprazole 40 Mg Tabcr PO 40 mg DAILY@0730 EUGENIO Administration Polyethylene Glycol 17 gm 08/03/23 08:30 08/03/23 09:17 Polyethylene Glycol 3350 17 Gm Packet PO 17 gm DAILY EUGENIO Administration Polyethylene Glycol 17 gm 08/02/23 14:29 Polyethylene Glycol 3350 17 Gm Packet PO BID PRN PRN Potassium Chloride 40 meq 08/02/23 08:30 08/03/23 09:23 Potassium Chloride Liquid 20 Meq Pkt PO 40 meq DAILY EUGENIO Administration Prednisone 40 mg 08/03/23 08:30 08/03/23 09:24 Prednisone 20 Mg Tab PO 40 mg DAILY EUGENIO Administration Sennosides 1 tab 07/31/23 22:00 08/03/23 22:56 Senna Tab PO 1 tab HS EUGENIO Administration Simvastatin 10 mg 07/31/23 22:00 08/03/23 22:56 Simvastatin 10 Mg Tab PO 10 mg HS EUGENIO Administration Sodium Chloride 0 ml 07/31/23 09:07 08/04/23 00:18 Normal Saline Flush 10 Ml Syr IVP 10 ml PRN PRN Administration Sodium Chloride 0 ml 07/31/23 20:00 08/03/23 19:51 Normal Saline Flush 10 Ml Syr IVP 20 ml BID EUGENIO Administration Sodium Chloride 0 ml 07/31/23 09:07 Normal Saline 10 Ml Vial IJ DIRECTED PRN Spironolactone 25 mg 08/01/23 08:30 08/03/23 09:24 Spironolactone 25 Mg Tab PO 25 mg DAILY EUGENIO Administration Tiotropium [place] 2 puff 08/01/23 08:30 08/03/23 08:17 Tiotropium [place]-Respimat 10 Puff Inh IH 2 puff DAILY EUGENIO Administration Zolpidem Tartrate 5 mg 07/31/23 22:00 08/03/23 22:55 Zolpidem 5 Mg Tab PO 5 mg HS EUGENIO Administration Allergies No Known Allergies Allergy (Unverified 07/31/23 09:55) Labs 08/04/23 05:38 08/04/23 05:38 Labs: 07/31/23 09:59 Blood Blood Culture - Preliminary NO GROWTH 72 HOURS 07/31/23 09:37 Blood Blood Culture - Preliminary NO GROWTH 72 HOURS Laboratory Tests Range/Units 07/31/23 07/31/23 07/31/23 09:34 09:37 09:46 WBC (4.4-10.8) 10^3/uL 5.97 RBC (3.93-5.22) 10^6/uL 4.62 Hgb (11.2-15.7) g/dL 12.8 Hct (36.0-46.0) % 41.7 MCV (80-95) fL 90 MCH (27.0-33.0) pg 27.7 MCHC (32.0-36.0) % 30.7 L RDW (11.7-14.6) % 13.8 Plt Count (130-400) 10^3/uL 262 MPV (8.0-11.0) fL 9.1 Immature Gran % 0.0 Neutrophils % 55.5 Lymphocytes % 29.8 Monocytes % 6.4 Eosinophils % 7.5 Basophils % 0.8 Nucleated RBC % (0.0-0.3) % 0.0 Absolute Neutrophils (1.2-6.7) 10^3/uL 3.31 Absolute Lymphocytes (1.2-3.4) 10^3/uL 1.78 Absolute Monocytes (0.1-0.8) 10^3/uL 0.38 Absolute Eosinophils (0.0-0.7) 10^3/uL 0.45 Absolute Basophils (0.0-0.2) 10^3/uL 0.05 PT (9.1-11.1) sec 10.9 INR (0.9-1.1) 1.1 APTT (23.6-32.8) sec 28.1 VBG pH (7.31-7.41) 7.30 L VBG pCO2 (41-51) mmHg 69 H* VBG pO2 mmHg 44 VBG HCO3 (23-28) mmol/L 34 H VBG Total CO2 (24-29) mmol/L 32 H VBG O2 Saturation % 75 VBG Base Excess (-2-3) mmol/L 7 H Sodium (136-145) mmol/L 143 Potassium (3.5-5.1) mmol/L 3.7 Chloride (98-107) mmol/L 102 Carbon Dioxide (21.0-32.0) mmol/L 33.8 H Anion Gap (3-11) mmol/L 7.2 BUN (7-18) mg/dL 5 L Creatinine (0.55-1.02) mg/dL 0.9 Est GFR (CKD-EPI 2020) (mL/min/1.73m2) 70.95 Glucose (74-106) mg/dL 101 Calcium (8.5-10.1) mg/dL 9.2 Magnesium (1.8-2.4) mg/dL 2.1 Total Bilirubin (0.2-1.0) mg/dL 0.6 AST (15-37) U/L 22 ALT (14-59) U/L 24 Alkaline Phosphatase (46-116) U/L 98 Troponin I (< or =60) ng/L < 50 NT-Pro-B Natriuret Pep (<300) pg/mL 38 Total Protein (6.4-8.2) g/dL 7.8 Albumin (3.4-5.0) g/dL 4.0 Procalcitonin ng/mL < 0.1 TSH (0.36-3.74) uIU/mL 0.56 COVID-19 Source Nasal/Nares SARS-CoV-2 (PCR) (Negative) Negative Range/Units 07/31/23 08/01/23 08/02/23 12:53 05:34 05:49 WBC (4.4-10.8) 10^3/uL 7.77 7.53 RBC (3.93-5.22) 10^6/uL 4.10 4.42 Hgb (11.2-15.7) g/dL 11.3 12.1 Hct (36.0-46.0) % 36.3 39.4 MCV (80-95) fL 89 89 MCH (27.0-33.0) pg 27.6 27.4 MCHC (32.0-36.0) % 31.1 L 30.7 L RDW (11.7-14.6) % 13.9 14.3 Plt Count (130-400) 10^3/uL 234 239 MPV (8.0-11.0) fL 9.1 9.7 Immature Gran % 0.4 Neutrophils % 81.3 Lymphocytes % 12.0 Monocytes % 6.2 Eosinophils % 0.0 Basophils % 0.1 Nucleated RBC % (0.0-0.3) % 0.0 Absolute Neutrophils (1.2-6.7) 10^3/uL 6.32 Absolute Lymphocytes (1.2-3.4) 10^3/uL 0.93 L Absolute Monocytes (0.1-0.8) 10^3/uL 0.48 Absolute Eosinophils (0.0-0.7) 10^3/uL 0.00 Absolute Basophils (0.0-0.2) 10^3/uL 0.01 PT (9.1-11.1) sec INR (0.9-1.1) APTT (23.6-32.8) sec VBG pH (7.31-7.41) VBG pCO2 (41-51) mmHg VBG pO2 mmHg VBG HCO3 (23-28) mmol/L VBG Total CO2 (24-29) mmol/L VBG O2 Saturation % VBG Base Excess (-2-3) mmol/L Sodium (136-145) mmol/L 143 146 H Potassium (3.5-5.1) mmol/L 3.6 3.1 L Chloride (98-107) mmol/L 102 103 Carbon Dioxide (21.0-32.0) mmol/L 34.2 H 37.9 H Anion Gap (3-11) mmol/L 6.8 5.1 BUN (7-18) mg/dL 12 9 Creatinine (0.55-1.02) mg/dL 0.9 1.0 Est GFR (CKD-EPI 2020) (mL/min/1.73m2) 70.95 62.52 Glucose (74-106) mg/dL 150 H 82 Calcium (8.5-10.1) mg/dL 8.8 9.1 Magnesium (1.8-2.4) mg/dL Total Bilirubin (0.2-1.0) mg/dL AST (15-37) U/L ALT (14-59) U/L Alkaline Phosphatase (46-116) U/L Troponin I (< or =60) ng/L < 50 NT-Pro-B Natriuret Pep (<300) pg/mL Total Protein (6.4-8.2) g/dL Albumin (3.4-5.0) g/dL Procalcitonin ng/mL TSH (0.36-3.74) uIU/mL COVID-19 Source SARS-CoV-2 (PCR) (Negative) Range/Units 08/03/23 08/03/23 08/04/23 05:25 10:18 05:38 WBC (4.4-10.8) 10^3/uL 8.95 8.72 RBC (3.93-5.22) 10^6/uL 4.59 4.22 Hgb (11.2-15.7) g/dL 12.5 11.7 Hct (36.0-46.0) % 40.7 37.8 MCV (80-95) fL 89 90 MCH (27.0-33.0) pg 27.2 27.7 MCHC (32.0-36.0) % 30.7 L 31.0 L RDW (11.7-14.6) % 14.2 14.6 Plt Count (130-400) 10^3/uL 252 225 MPV (8.0-11.0) fL 9.8 9.5 Immature Gran % 0.3 0.5 Neutrophils % 85.7 66.1 Lymphocytes % 9.6 25.7 Monocytes % 4.4 7.5 Eosinophils % 0.0 0.1 Basophils % 0.0 0.1 Nucleated RBC % (0.0-0.3) % 0.0 0.0 Absolute Neutrophils (1.2-6.7) 10^3/uL 7.67 H 5.77 Absolute Lymphocytes (1.2-3.4) 10^3/uL 0.86 L 2.24 Absolute Monocytes (0.1-0.8) 10^3/uL 0.39 0.65 Absolute Eosinophils (0.0-0.7) 10^3/uL 0.00 0.01 Absolute Basophils (0.0-0.2) 10^3/uL 0.00 0.01 PT (9.1-11.1) sec INR (0.9-1.1) APTT (23.6-32.8) sec VBG pH (7.31-7.41) 7.45 H VBG pCO2 (41-51) mmHg 52 H VBG pO2 mmHg 43 VBG HCO3 (23-28) mmol/L 36 H VBG Total CO2 (24-29) mmol/L 32 H VBG O2 Saturation % 78 VBG Base Excess (-2-3) mmol/L 12 H Sodium (136-145) mmol/L 144 144 Potassium (3.5-5.1) mmol/L 3.6 3.2 L Chloride (98-107) mmol/L 101 103 Carbon Dioxide (21.0-32.0) mmol/L 33.8 H 34.4 H Anion Gap (3-11) mmol/L 9.2 6.6 BUN (7-18) mg/dL 11 13 Creatinine (0.55-1.02) mg/dL 1.0 1.0 Est GFR (CKD-EPI 2020) (mL/min/1.73m2) 62.52 62.52 Glucose (74-106) mg/dL 110 H 104 Calcium (8.5-10.1) mg/dL 9.7 9.0 Magnesium (1.8-2.4) mg/dL 2.1 2.2 Total Bilirubin (0.2-1.0) mg/dL AST (15-37) U/L ALT (14-59) U/L Alkaline Phosphatase (46-116) U/L Troponin I (< or =60) ng/L NT-Pro-B Natriuret Pep (<300) pg/mL Total Protein (6.4-8.2) g/dL Albumin (3.4-5.0) g/dL Procalcitonin ng/mL TSH (0.36-3.74) uIU/mL COVID-19 Source SARS-CoV-2 (PCR) (Negative) Range/Units 08/04/23 07:10 WBC (4.4-10.8) 10^3/uL RBC (3.93-5.22) 10^6/uL Hgb (11.2-15.7) g/dL Hct (36.0-46.0) % MCV (80-95) fL MCH (27.0-33.0) pg MCHC (32.0-36.0) % RDW (11.7-14.6) % Plt Count (130-400) 10^3/uL MPV (8.0-11.0) fL Immature Gran % Neutrophils % Lymphocytes % Monocytes % Eosinophils % Basophils % Nucleated RBC % (0.0-0.3) % Absolute Neutrophils (1.2-6.7) 10^3/uL Absolute Lymphocytes (1.2-3.4) 10^3/uL Absolute Monocytes (0.1-0.8) 10^3/uL Absolute Eosinophils (0.0-0.7) 10^3/uL Absolute Basophils (0.0-0.2) 10^3/uL PT (9.1-11.1) sec INR (0.9-1.1) APTT (23.6-32.8) sec VBG pH (7.31-7.41) 7.42 H VBG pCO2 (41-51) mmHg 59 H VBG pO2 mmHg 40 VBG HCO3 (23-28) mmol/L 38 H VBG Total CO2 (24-29) mmol/L 35 H VBG O2 Saturation % 71 VBG Base Excess (-2-3) mmol/L 13 H Sodium (136-145) mmol/L Potassium (3.5-5.1) mmol/L Chloride (98-107) mmol/L Carbon Dioxide (21.0-32.0) mmol/L Anion Gap (3-11) mmol/L BUN (7-18) mg/dL Creatinine (0.55-1.02) mg/dL Est GFR (CKD-EPI 2020) (mL/min/1.73m2) Glucose (74-106) mg/dL Calcium (8.5-10.1) mg/dL Magnesium (1.8-2.4) mg/dL Total Bilirubin (0.2-1.0) mg/dL AST (15-37) U/L ALT (14-59) U/L Alkaline Phosphatase (46-116) U/L Troponin I (< or =60) ng/L NT-Pro-B Natriuret Pep (<300) pg/mL Total Protein (6.4-8.2) g/dL Albumin (3.4-5.0) g/dL Procalcitonin ng/mL TSH (0.36-3.74) uIU/mL COVID-19 Source SARS-CoV-2 (PCR) (Negative)
[2023-08-04] MEDS: Potassium Chloride Liquid 20 MEQ PKT 40 MEQ PO (07:46)
[2023-08-04] MEDS: Polyethylene Glycol 3350 17 GM PACKET PO (07:46)
[2023-08-04] MEDS: predniSONE 20 MG TAB 40 MG PO (07:49)
[2023-08-04] MEDS: Enoxaparin 40 MG/0.4 ML SYR SC ×2 (07:49→21:28)
[2023-08-04] MEDS: Docusate Sodium 100 MG CAP 200 MG PO (07:49)
[2023-08-04] MEDS: Furosemide 20 MG TAB PO ×2 (07:49→15:59)
[2023-08-04] MEDS: Spironolactone 25 MG TAB PO (07:49)
[2023-08-04] MEDS: Albuterol/Ipratropium 3 ML UPD VIAL UPD ×4 (08:33→19:56)
[2023-08-04] MEDS: Budesonide/Formoterol 160/4.5 6 GM 60 PUFF INH IH ×2 (08:36→19:57)
[2023-08-04] MEDS: Tiotropium Bromide-Respimat 10 PUFF INH 2 PUFF IH (08:36)
[2023-08-04] MEDS: Methadone Liquid 10 MG/ML 98 MG PO (08:55)
[2023-08-04] MEDS: Potassium Chloride 20 MEQ TABCR 40 MEQ PO (09:00)
--- NOTE | 2023-08-04 15:50 | PGE_ITS ---
Date of Service Date of service: 08/04/23 Time of Service: 11:45 Assessment and Plan Assessment and plan (1) Acute on chronic respiratory failure with hypoxia and hypercapnia: Status: Acute Assessment and plan: Probably related to recurrent episodes of aspiration, asthma exacerbation, OHS, and less likely COPD. The patient was transferred back to the ICU for closer monitoring due to her persistently high oxygen requirements. I have discussed the case with Dr. Mcdermott. We both feel that the patient still belongs in the ICU. Continue BiPAP use at night. She will need to have a qualifying ABG prior to discharge to attempt to get her positive pressure machine. I am asking Dr. Valiente if she feels there would be use for repeating a CT of her chest. The last one was done in May 2023. I do think it is a good idea for her to eventually get off of methadone. She needs an EGD/dilatation to prevent future aspiration events. Diuresed well with furosemide. (2) Asthma exacerbation: Status: Acute Assessment and plan: As above - continue prednisone (Dr. Mcdermott had written out a steroid taper in your note). Continue Symbicort and Spiriva. Continue as needed nebulizers. (3) Obesity hypoventilation syndrome: Status: Suspected Assessment and plan: Needs spirometry and an ABG after a night of sleeping off of BiPAP prior to discharge. Considering BiPAP for discharge. (4) COPD with acute exacerbation: Status: Ruled-out Assessment and plan: ? a true COPD exacerbation. The patient does not have much of a smoking hx. (5) Bronchiectasis: Status: Acute Assessment and plan: As above Continue VibraPEP (6) Aspiration into airway: Status: Chronic Assessment and plan: Suspected esophageal stricture by moidified barium swallowing study. Needs an EGD. I have asked our care managers to look into whether or not the patient has an appointment with GI at [facility]. Continue modified diet. Qualifiers: Encounter type: initial encounter Qualified Code(s): T17.908A - Unspecified foreign body in respiratory tract, part unspecified causing other injury, initial encounter (7) Esophageal stricture: Status: Chronic Assessment and plan: As above - needs outpatient EGD. (8) Bilateral leg edema: Status: Chronic Assessment and plan: Continue home diuretics, TEDs. Venous dopplers negative for DVT. Continue TEDs. (9) Hypothyroid: Status: Chronic Assessment and plan: TSH 0.56. Contiue levothyroxine at current dose. Qualifiers: Hypothyroidism type: acquired Qualified Code(s): E03.9 - Hypothyroidism, unspecified (10) GERD (gastroesophageal reflux disease): Status: Chronic Assessment and plan: Continue protonix. Qualifiers: Esophagitis presence: esophagitis presence not specified Qualified Code(s): K21.9 - Gastro-esophageal reflux disease without esophagitis (11) Constipation: Status: Chronic Assessment and plan: Continue colase + miralax. Qualifiers: Constipation type: drug induced constipation Qualified Code(s): K59.03 - Drug induced constipation (12) Opioid use disorder, severe, on maintenance therapy: Status: Chronic Assessment and plan: Continue methadone with plans for an outpatient taper (13) DVT prophylaxis: Status: Acute Assessment and plan: SC enoxaparin (14) Discharge planning issues: Status: Acute Assessment and plan: Full code Continues to require hospitalization Transferred back to the ICU. Total Critical Care Time [address] Mcdermott. Subjective Subjective Interval history since last seen: states that she is feeling better. She was transferred out of the ICU overnight due to needing a bed emergently, but her oxygen requirement this morning on humidified heated cannula remains 40 L and 56% FiO2. I discussed this with Dr. Mcdermott, and we both feel that the patient really should still be in the ICU, so she was transferred back there. denies dizziness, chest pain, shortness of breath, nausea. She does endorse cough productive of yellow sputum now. Exam Narrative Exam Narrative: General: Pleasant middle-aged female who is A&Ox3, wearing a humidified heated cannula at 40 L, 56% FiO2. HEENT: EOMI, MMM Heart: RRR, no m/r/g Lungs: wheezing on expiration B, no rales Abdomen: soft, nontender, nondistended Extremities: edema BLEs +2, minimally changed Objective Last Vital Signs Temp 36.7 C 08/04/23 13:54 Pulse 74 08/04/23 13:54 Resp 14 08/04/23 13:54 BP 142/77 H 08/04/23 11:35 Pulse Ox 94 08/04/23 11:46 Laboratory Results - last 24 hr 08/04/23 08/04/23 05:38 07:10 WBC 8.72 RBC 4.22 Hgb 11.7 Hct 37.8 MCV 90 MCH 27.7 MCHC 31.0 L RDW 14.6 Plt Count 225 MPV 9.5 Immature Gran % 0.5 Neutrophils % 66.1 Lymphocytes % 25.7 Monocytes % 7.5 Eosinophils % 0.1 Basophils % 0.1 Nucleated RBC % 0.0 Absolute Neutrophils 5.77 Absolute Lymphocytes 2.24 Absolute Monocytes 0.65 Absolute Eosinophils 0.01 Absolute Basophils 0.01 VBG pH 7.42 H VBG pCO2 59 H VBG pO2 40 VBG HCO3 38 H VBG Total CO2 35 H VBG O2 Saturation 71 VBG Base Excess 13 H Sodium 144 Potassium 3.2 L Chloride 103 Carbon Dioxide 34.4 H Anion Gap 6.6 BUN 13 Creatinine 1.0 Est GFR (CKD-EPI 2020) 62.52 Glucose 104 Calcium 9.0 Magnesium 2.2 Objective Narrative Objective Narrative: Chest x-ray: No change in appearance of the chest x-ray compared to the prior examination. Persistent blunting of the left costophrenic angle which may represent a small effusion or scarring. Time Spent with Patient Time Spent with Patient: 35-49 minutes Time was spent: preparing to see the patient(eg.review tests), obtaining and/or reviewing separately otained hiistory, ordering medications,tests, procedures, referring, communicating with other health resident care aid, indepentently interpreting results, counseling the patient and care coordination
--- NOTE | 2023-08-04 16:28 | IN_ITS ---
PT Notes Visit Reasons: COPD Exacerbation,Hypoxic resp failure Physical Therapy Inpatient Initial Evaluation Date: 08/04/2023 Referring Doctor: Sharron Rowland MD PT Orders: PT CONSULT: Eval/Treat Precautions: Fall. Standard. Activity as tolerated. Patient Profile/Admitting Diagnosis: Jody is a 63-year-old female who presented to the ED on due cough and shortness of breath. Admitted to the ICU for management of obesity hypoventilation syndrome, bronchiectasis, asthma exacerbation, acute on chronic respiratory failure with hypoxia and hypercapnia, aspiration into airway, COPD exacerbation, BLE edema, GERD, constipation, and opioid use disorder. PMHX: All Active Problems (Updated 07/31/23 @ 12:11 by Johana Aldrich NP) Discharge planning issues (Acute) COPD with acute exacerbation (Acute) Aspiration into airway (Chronic) Acute on chronic respiratory failure with hypoxemia (Acute) On deep vein thrombosis (DVT) prophylaxis (Acute) Bilateral leg edema (Chronic) Constipation (Chronic) Esophageal abnormality (Acute) Opioid use disorder, severe, on maintenance therapy (Chronic) GERD (gastroesophageal reflux disease) (Chronic) Hypothyroid (Chronic) Anxiety (Chronic 03/27/14) COPD (chronic obstructive pulmonary disease) (Chronic) Recurrent aspiration pneumonia (Acute) Bronchitis (Acute) Distal radius fracture (Acute) Medical History Abnormal auditory perception (03/29/14) Trouble in sleeping Depression History of drug abuse Irregular heart rhythm Hypertension Surgical History History of thyroidectomy Social History/Home Situation: Lives with significant other in a private home with out any entry steps. With all aspects of ADLs prior to admission. Equipment Owned/DME: None Subjective: Feels much better. Minimal shortness of breath with transfer from bed to bedside chair. Objective: General Observation: Resting in chair. HF oxygen supplementation via NC saturating at 90% to 91%. Mental Status: Alert and oriented as to person, place, time, and purpose. Able to pay attention, focus, and respond appropriately. Pain: Denies Vital Signs: FIO2 of 57% at 45 L/minute flow rate saturating at 91% to 92% during bed recliner transfer ROM: Right Upper Extremity: Shoulder Flexion WFL. Shoulder abduction WFL. Elbow flexion WFL. Wrist flexion WFL. Functional opening and closing of hand WFL. Left Upper Extremity: Shoulder Flexion WFL. Shoulder abduction WFL. Elbow flexion WFL. Wrist flexion WFL. Functional opening and closing of hand WFL. Right Lower Extremity: Hip flexion WFL but with pain at mid and end-rage of motion. Hip abduction WFL. Knee flexion WFL. Ankle dorsiflexion WFL. Ankle plantarflexion WFL. Left Lower Extremity: Hip flexion WFL. Hip abduction WFL. Knee flexion WFL. Ankle dorsiflexion WFL. Ankle plantarflexion WFL. Strength: Right Upper Extremity: Shoulder flexors 4/5. Shoulder abductors 5/5. Elbow flexors 5/5. Elbow extensors 5/5. Compliance Paralegal strong. Left Upper Extremity: Shoulder flexors 4/5. Shoulder abductors 5/5. Elbow flexors 5/5. Elbow extensors 5/5. Compliance Paralegal strong. Right Lower Extremity: Hip flexors 4/5. Hip abductors 5/5. Knee flexors 5/5. Knee extensors 4/5. Ankle dorsiflexors 4/5. Ankle plantarflexors 5/5. Left Lower Extremity: Hip flexors 4/5. Hip abductors 5/5. Knee flexors 5/5. Knee extensors 4/5. Ankle dorsiflexors 4/5. Ankle plantarflexors 5/5. Bed Mobility/Transfers: Moderate cueing provided for use of B hands as needed for support, movement sequence, AD management, and posture to reduce fall risk and minimize pain report Supine to sit stand by assist with HOB at 45 degrees Sit to stand stand by assist with FWW Stand to sit stand by assist Bed to chair stand by assist Chair to bed stand by assist Gait: 4-5 steps from bedside to bedside recliner using FWW with stand by assist. minimal shortness of breath with FIO2 of 57% at 45 L/minute flow rate saturating at 91% to 92%. Gait pattern otherwise unremarkable. Balance: Static Sitting: Normal Dynamic Sitting: Normal Static Standing: Good Dynamic Standing: Good Special Tests: Mobility Limitations Standardized Measure [facility] AM-PAC 6 clicks Basic Mobility Inpatient Short Form: Raw Score: 21 CMS Score:29% deficit Informed Consent/Education: Patient was instructed in purpose of PT consult and plan of care. Agreeable to proceed with established PT POC to achieve personal goals. ASSESSMENT: Patient presents with clinical signs and symptoms consistent with current/admitting diagnoses that have resulted to mobility limitations, gait instability, generalized weakness, and overall ADL decline as demonstrated by the following impairment level findings: 1. Shortness of breath and impaired activity tolerance 2. Generalized weakness Impairments are contributing to the following functional limitations: 1. Increased completion time for mobility ADL performance Patient is assessed as a 24083 low complexity based on the following: History: 63-year-old female with past medical history as indicated above Examination: Demonstrable impairment in strength, balance, and mobility level with underlying impairments and functional limitations as exhibited above Presentation: Evolving Decision Makin moderate complexity Goals: Goals X1 week 1. Independent gait on level surface with use of 4WW for at least 300 feet witho ut report of dyspnea with oxygen saturation above 88% on 3 L. 2. Patient will demonstrate 100% mastery of chest expansion exercises and B UE/LE exercises prior to discharge. Plan of Care/Treatment Plan: 1x/day, 7 days/week x 1 week. Plan of care has been reviewed with the BOX SPRING FRAME BUILDER providing the service under Physical Therapy direction. Initiate Physical Therapy intervention for pain management as needed, strengthening, bed mobility, transfers, gait, stairs, balance training, and use of assistive device. Suggested THERA EX: Chest expansion exercises with shoulder flexion and extension with DBE x 5 Chest expansion exercises with shoulder hor abd/add with DBE x 5 Slow sit to stand x 5 DISCHARGE RECOMMENDATIONS: [] Home with no services [] [X] Home with services. PT for home safety evaluation and energy conservation techniques. [] Home with outpatient PT [] [] SNF for continued rehabilitation [] [] Temporary Data Entry Clerk Care [] [] SNF versus LTC based on ability to participate and progress [] TREATMENT CODE/TIME: 14315 x 20 minutes for 1 unit (16:29-16:49). Thank you for the opportunity to participate in the care of this patient. Evon Bryant PT, DPT, CLT [facility] [place], [place]
[2023-08-04] MEDS: Normal Saline 500 ML IV (18:36)
--- NOTE | 2023-08-04 18:57 | PDOC.CMPRO ---
Date of service: 08/04/23 Time of Service: 18:58 Care Management Progress Note Progress Note Text Progress Note Text: S/O: Laurence was sitting up in bed when CM met with her. She stated that she is doing ok, although she was brought back to the ICU this morning. She remains on high flow nasal cannula. Pulmonology is following, and is working on getting her a positive pressure machine for home. Laurence's brother was visiting at the time of the conversation. CM reviewed her plan to return home once she is medically cleared; she is not ready for discharge at this time. CM will continue to follow. A: 63 year old female admitted to [facility] 07/31/23 for COPD exacerbation, hypoxic respiratory failure P: Frieda will return home when ready per MD, anticipate she will transport via [facility], coordinated by CM. She will have outpatient follow up with [facility] [place]. Her PCP is at [facility] [place], and she utilizes [facility] for transport. Frieda has weekly [facility] appointments on Fridays. Per MD, RT is working to coordinate BIPAP for home use, Frieda utilizes [facility] for home O2 at baseline already. CM following. SDOH(Care Management) Screening Will the Patient Participate in the Screening?: Yes Do you worry about having a steady place to live?: yes Problems where you live: pests such as bugs, ants or mice and mold In the past 12 months, have you had to go without electric, gas, oil or water in your home?: no Have you or anyone in your house had to go without enough food to eat?: no Has lack of transportation kept you from medical appointments or from doing things needed for daily living?: yes Has anyone in your support network made you feel unsafe for any reason?: no Social Determinants of Health Comments(SDOH Details): Entry way, on first 3 steps the drain gutter leaks causing ice buildup on steps. Landlord sent someone to fix it--only partial fix was done per patient. Health Related Social Needs Health related social needs: inadequate housing(Z59.1), housing instability, housed, with risk of homelessness(Z59.811) and transportation insecurity(Z59.82)
[2023-08-04] MEDS: Zolpidem 5 MG TAB PO (21:25)
[2023-08-04] MEDS: Mirtazapine 15 MG TAB 45 MG PO (21:26)
[2023-08-04] MEDS: Mirtazapine 15 MG TAB PO (21:26)
[2023-08-04] MEDS: Senna TAB 1 TAB PO (21:27)
[2023-08-04] MEDS: Simvastatin 10 MG TAB PO (21:27)
[2023-08-04] MEDS: Dexlansoprazole 30 MG CAP 60 MG PO (22:24)
[2023-08-05] VITALS (63 sets, daily range): BP systolic 90–154; BP diastolic 49–92; PULSE 53–96; RESP 5–20; TEMP 31–36.6; O2SAT 87–96
[2023-08-05] MEDS: PIPERACILLIN/TAZO 3.375 GM in Normal Saline 50 ML IVPB ×4 (00:33→18:12)
[2023-08-05] MEDS: guaiFENesin/D-METHORPHAN HB 5 ML CUP 10 ML PO ×7 (00:34→22:36)
[2023-08-05] MEDS: Levothyroxine 100 MCG TAB 200 MCG PO (06:01)
[2023-08-05] MEDS: dilTIAZem 30 MG TAB PO ×3 (06:01→22:38)
[2023-08-05 06:07] LABS: Abs Immature Grans 0.02 10^3/uL (0.0-0.06); Absolute Basophil Count 0.01 10^3/uL (0.0-0.2); Absolute Eosinophil Count 0.04 10^3/uL (0.0-0.7); Absolute Monocyte Count 0.58 10^3/uL (0.1-0.8); Absolute Neutrophil Count 4.26 10^3/uL (1.2-6.7); Basophils % 0.1; Eosinophils % 0.5; HCT 37.8 % (36.0-46.0); HGB 11.6 g/dL (11.2-15.7); Immature Grans % 0.3; Lymphocytes % 37.1; MCH 27.5 pg (27.0-33.0); MCHC 30.7 % (32.0-36.0); MCV 90 fL (80-95); MPV 9.4 fL (8.0-11.0); Monocytes % 7.4; Neutrophils % 54.6; Platelet Count 211 10^3/uL (130-400); RBC 4.22 10^6/uL (3.93-5.22); RDW 14.6 % (11.7-14.6); RDW-SD 47.9 fL; WBC 7.81 10^3/uL (4.4-10.8)
[2023-08-05 06:16] LABS: Anion Gap 7.2 mmol/L (3-11); BUN 14 mg/dL (7-18); CO2 34.8 mmol/L (21.0-32.0); CREATININE 1.1 mg/dL (0.55-1.02); Calcium 8.9 mg/dL (8.5-10.1); Chloride 102 mmol/L (98-107); Estimated GFR 55.76 (mL/min/1.73m2); Glucose 83 mg/dL (74-106); Magnesium 2.3 mg/dL (1.8-2.4); Potassium 3.6 mmol/L (3.5-5.1); Sodium 144 mmol/L (136-145)
[2023-08-05] MEDS: Enoxaparin 40 MG/0.4 ML SYR SC ×2 (08:00→19:55)
[2023-08-05] MEDS: Pantoprazole 40 MG TABCR PO (08:05)
[2023-08-05] MEDS: Docusate Sodium 100 MG CAP 200 MG PO (08:05)
[2023-08-05] MEDS: Dexlansoprazole 30 MG CAP 60 MG PO (08:05)
[2023-08-05] MEDS: Methadone Liquid 10 MG/ML 98 MG PO (08:06)
[2023-08-05] MEDS: Spironolactone 25 MG TAB PO (08:06)
[2023-08-05] MEDS: Polyethylene Glycol 3350 17 GM PACKET PO (08:07)
[2023-08-05] MEDS: predniSONE 20 MG TAB 40 MG PO (08:07)
[2023-08-05] MEDS: Furosemide 20 MG TAB PO ×2 (08:07→16:45)
[2023-08-05] MEDS: Potassium Chloride Liquid 20 MEQ PKT 40 MEQ PO (08:08)
[2023-08-05] MEDS: Tiotropium Bromide-Respimat 10 PUFF INH 2 PUFF IH (08:17)
[2023-08-05] MEDS: Albuterol/Ipratropium 3 ML UPD VIAL UPD ×4 (08:18→19:54)
[2023-08-05] MEDS: Budesonide/Formoterol 160/4.5 6 GM 60 PUFF INH IH ×2 (08:18→19:56)
--- NOTE | 2023-08-05 10:27 | PT.INTREAT ---
PT Notes Visit Reasons: COPD Exacerbation,Hypoxic resp failure Inpatient Physical Therapy Treatment Note [facility] Date: 08/05/23 SUBJECTIVE: Laurence states that she is feeling a little better. Offers no specific complaints to me this am. OBJECTIVE: []? VITALS: ? Pre-Treatment: 88% ? Post-Treatment: 87% Therapeutic Activities (86312d0): Direct one-on-one instruction in dynamic activities to improve functional performance. ? BED MOBILITY/TRANSFERS? Sit-stand: SBA ? Stand-sit: SBA? Provided skilled cues and instruction on performance and technique throughout. GAIT? Assistive Device: none ? Weight bearing: full Assist: CGA ? Distance:? 25'x4? Deviation: slow. hi flow ? Therapeutic Exercises (22970t3): Direct one-on-one instruction in therapeutic exercises to develop strength, endurance, range of motion and flexibility. ? Exercises ?seated LAQ, marching x 10 each as well as deep breathing ex with horz. Ab/Add x10, rows and gh flex/ext x10 ea. Sit to stands x4. ASSESSMENT:? tolerated session well. Does well with her deep breathing ex. O2 sats ranged from 86%-91% PLAN: will continue to work on her strength, endurance and improve functional mobility following PT POC. TREATMENT CODE/TIME: 25 min 81194t2, 05640h5
--- NOTE | 2023-08-05 11:10 | PDOC.CMPRO ---
Date of service: 08/05/23 Time of Service: 11:10 Care Management Progress Note Progress Note Text Progress Note Text: S/O: Laurence was sitting up in her chair when CM met with her. She stated that she is feeling better today. She was writing in a notebook and stated that she is taking down notes to remember later. CM called [facility] who reported that Laurence had an appointment for an EGD which was cancelled; [facility] provided the number to call to reschedule ([phone]). CM discussed this with Laurence and offered to make the appointment for her; she declined, stating that she would prefer to make the appointment as she knows her own schedule well. Per report, she is on a modified diet, and remains on high flow O2, significantly increased from her baseline O2, which is 2-3L. CM provided a crossword puzzle book, at her request. CM will continue to follow. A: 63 year old female admitted to [facility] 07/31/23 for COPD exacerbation, hypoxic respiratory failure P: Frieda will return home when ready per MD, anticipate she will transport via [facility], coordinated by CM. She will have outpatient follow up with [facility] for EGD. Her PCP is at [facility] as well, and she utilizes [facility] for transport. Frieda has weekly [facility] appointments on Fridays. Per MD, RT is working to coordinate BIPAP for home use, Frieda utilizes [facility] for home O2 at baseline already. CM following. SDOH(Care Management) Screening Will the Patient Participate in the Screening?: Yes Do you worry about having a steady place to live?: yes Problems where you live: pests such as bugs, ants or mice and mold In the past 12 months, have you had to go without electric, gas, oil or water in your home?: no Have you or anyone in your house had to go without enough food to eat?: no Has lack of transportation kept you from medical appointments or from doing things needed for daily living?: yes Has anyone in your support network made you feel unsafe for any reason?: no Social Determinants of Health Comments(SDOH Details): Entry way, on first 3 steps the drain gutter leaks causing ice buildup on steps. Landlord sent someone to fix it--only partial fix was done per patient. Health Related Social Needs Health related social needs: inadequate housing(Z59.1), housing instability, housed, with risk of homelessness(Z59.811) and transportation insecurity(Z59.82)
[2023-08-05] MEDS: Furosemide 20 MG/2 ML VIAL IVP (11:38)
--- NOTE | 2023-08-05 13:52 | PTTR_ITS ---
Date of service: 08/05/23 Time of Service: 13:20 PT Notes Visit Reasons: COPD Exacerbation,Hypoxic resp failure Inpatient Physical Therapy Treatment Note [facility] Date: 08/05/23 PRECAUTIONS: Fall, standard, activity as tolerated. SUBJECTIVE: Patient reports feeling pretty good. States that it's a shame someone [her] age has to go through this. Feels like this should be for an 85 year old or something. Eager to walk, reports wanting to push herself. OBJECTIVE: Standing in room when approached for therapy. States that she was going to sit EOB so that she could plug in her tablet. Patient is on high flow nasal cannula.? PAIN: none reported VITALS: ? Pre-Treatment: HR 88, SaO2 92% ? Post-Treatment: HR 89, SaO2 91% ? ? BED MOBILITY/TRANSFERS? Rolling L/R: not assessed Supine-sit: not assessed ? Sit-supine: not assessed ? Sit-stand: SBA ? Stand-sit: SBA ? Bed-Chair: SBA ? Chair-bed: SBA ? Therapeutic Exercises (85046b6): Direct one-on-one instruction in therapeutic exercises to develop strength, endurance, range of motion and flexibility. ? Exercises: * 5x DB with chest expansion/shoulder flexion * 5x DB with chest expansion/ shoulder horizontal abduction * 2x each side chest expansion in sidebending for 5 slow breaths * 5x slow sit to stands Ambulation ? Assistive Device: none ? Weight bearing: full Assist: CGA, assist managing high flow device as well as telemetry, wheelchair follow? Distance:? 100 feet ? Deviation: slow rasheed, wide MANPREET, reduced step length and height. Good balance. Lowest observed O2 during ambulation: 88%. Lowest observed O2 overall during treatment session: 86%. HR observed to be a little tachy per RN [place]. ? Provided skilled instruction in proper exercise performance Provided skilled manual cues to facilitate proper muscle recruitment and/or form. ASSESSMENT:? Patient tolerates therapy well, reports no pain, no fatigue at close of session. PLAN: Continue global strengthening per plan of care until patient is medically cleared for discharge. TREATMENT CODE/TIME: 29 minutes beginning at 13:20 (patient was seen this morning for 25 minutes by TAMIE Monge, for a total of 54 minutes today.)
--- NOTE | 2023-08-05 15:06 | CHAPLAIN ---
Frieda was sitting up in bed when I visited. I introduced myself, explained my role and offered support. Frieda said her brother has been in visiting her. She was not interested in a longer visit.
[2023-08-05] MEDS: Normal Saline Flush 10 ML SYR IVP ×2 (18:12)
--- NOTE | 2023-08-05 20:33 | W.PM.PROGNOT ---
Date of Service Date of service: 08/05/23 Time of Service: 09:45 Assessment and Plan Assessment and plan (1) Acute on chronic respiratory failure with hypoxia and hypercapnia: Status: Acute Assessment and plan: Probably related to recurrent episodes of aspiration, asthma exacerbation, OHS, and less likely COPD. The patient was transferred back to the ICU for closer monitoring due to her persistently high oxygen requirements on July. I have discussed the case with Dr. Mcdermott. We are not changing her antibiotics today (she is on Zosyn). Will try another dose of furosemide IV today. Continue her scheduled oral regimen as well. Continue BiPAP use at night. She will need to have a qualifying ABG prior to discharge to attempt to get her positive pressure machine. I do think it is a good idea for her to eventually get off of methadone. She needs an EGD/dilatation to prevent future aspiration events. (2) Asthma exacerbation: Status: Acute Assessment and plan: As above - continue prednisone (Dr. Mcdermott had written out a steroid taper in your note). Continue Symbicort and Spiriva. Continue as needed nebulizers. (3) Obesity hypoventilation syndrome: Status: Suspected Assessment and plan: Needs spirometry and an ABG after a night of sleeping off of BiPAP prior to discharge. Considering BiPAP for discharge. (4) COPD with acute exacerbation: Status: Ruled-out Assessment and plan: ? a true COPD exacerbation. The patient does not have much of a smoking hx. (5) Bronchiectasis: Status: Acute Assessment and plan: As above Continue VibraPEP (6) Aspiration into airway: Status: Chronic Assessment and plan: Suspected esophageal stricture by moidified barium swallowing study. Needs an EGD. I have asked our care managers to look into whether or not the patient has an appointment with GI at [facility]. Continue modified diet. Qualifiers: Encounter type: initial encounter Qualified Code(s): T17.908A - Unspecified foreign body in respiratory tract, part unspecified causing other injury, initial encounter (7) Esophageal stricture: Status: Chronic Assessment and plan: As above - needs outpatient EGD. (8) Bilateral leg edema: Status: Chronic Assessment and plan: Continue home diuretics, TEDs. Venous dopplers negative for DVT. Continue TEDs. (9) Hypothyroid: Status: Chronic Assessment and plan: TSH 0.56. Contiue levothyroxine at current dose. Qualifiers: Hypothyroidism type: acquired Qualified Code(s): E03.9 - Hypothyroidism, unspecified (10) GERD (gastroesophageal reflux disease): Status: Chronic Assessment and plan: Continue protonix. Qualifiers: Esophagitis presence: esophagitis presence not specified Qualified Code(s): K21.9 - Gastro-esophageal reflux disease without esophagitis (11) Constipation: Status: Chronic Assessment and plan: Continue colase + miralax. Qualifiers: Constipation type: drug induced constipation Qualified Code(s): K59.03 - Drug induced constipation (12) Opioid use disorder, severe, on maintenance therapy: Status: Chronic Assessment and plan: Continue methadone with plans for an outpatient taper (13) DVT prophylaxis: Status: Acute Assessment and plan: SC enoxaparin (14) Discharge planning issues: Status: Acute Assessment and plan: Full code Continues to require hospitalization Continues to require ICU. Total Critical Care Time [address] Mcdermott. Subjective Subjective Interval history since last seen: states that she is feeling better today, but she is actually still requiring 55% FiO2 and 45 L. She is saturating 90 to 91% on that. The nursing has noted that she drinks quite a bit of water. I talked to the patient about restricting her water intake to 1500 cc today. She denies dizziness, chest pain, shortness of breath while on the humidified heated high flow nasal cannula, nausea, vomiting. Exam Narrative Exam Narrative: General: Pleasant middle-aged female who is A&Ox3, wearing a humidified heated cannula Heart: RRR, no m/r/g Lungs: wheezing on expiration B, no change, no rales Abdomen: soft, nontender, nondistended Extremities: edema BLEs +2, minimally changed Objective Last Vital Signs Temp 36.2 C L 08/05/23 16:15 Pulse 96 H 08/05/23 18:01 Resp 14 08/05/23 18:01 BP 96/76 L 08/05/23 18:01 Pulse Ox 93 08/05/23 18:01 Laboratory Results - last 24 hr 08/05/23 05:35 WBC 7.81 RBC 4.22 Hgb 11.6 Hct 37.8 MCV 90 MCH 27.5 MCHC 30.7 L RDW 14.6 Plt Count 211 MPV 9.4 Immature Gran % 0.3 Neutrophils % 54.6 Lymphocytes % 37.1 Monocytes % 7.4 Eosinophils % 0.5 Basophils % 0.1 Nucleated RBC % 0.0 Absolute Neutrophils 4.26 Absolute Lymphocytes 2.90 Absolute Monocytes 0.58 Absolute Eosinophils 0.04 Absolute Basophils 0.01 Sodium 144 Potassium 3.6 Chloride 102 Carbon Dioxide 34.8 H Anion Gap 7.2 BUN 14 Creatinine 1.1 H Est GFR (CKD-EPI 2020) 55.76 Glucose 83 Calcium 8.9 Magnesium 2.3 Time Spent with Patient Time Spent with Patient: 35-49 minutes Time was spent: preparing to see the patient(eg.review tests), obtaining and/or reviewing separately otained hiistory, ordering medications,tests, procedures, referring, communicating with other health school childcare attendant, indepentently interpreting results, counseling the patient and care coordination
[2023-08-05] MEDS: Simvastatin 10 MG TAB PO (22:38)
[2023-08-05] MEDS: Senna TAB 1 TAB PO (22:39)
[2023-08-05] MEDS: Zolpidem 5 MG TAB PO (22:40)
[2023-08-05] MEDS: Mirtazapine 15 MG TAB 45 MG PO (22:44)
[2023-08-05] MEDS: Mirtazapine 15 MG TAB PO (22:45)
[2023-08-06] VITALS (56 sets, daily range): BP systolic 100–139; BP diastolic 49–81; PULSE 50–98; RESP 5–23; TEMP 31–36.9; O2SAT 83–98
[2023-08-06] MEDS: PIPERACILLIN/TAZO 3.375 GM in Normal Saline 50 ML IVPB ×5 (00:15→23:55)
[2023-08-06] MEDS: guaiFENesin/D-METHORPHAN HB 5 ML CUP 10 ML PO ×6 (03:55→23:54)
[2023-08-06 05:40] LABS: Abs Immature Grans 0.02 10^3/uL (0.0-0.06); Absolute Basophil Count 0.01 10^3/uL (0.0-0.2); Absolute Eosinophil Count 0.05 10^3/uL (0.0-0.7); Absolute Lymphocyte Count 2.48 10^3/uL (1.2-3.4); Absolute Neutrophil Count 4.39 10^3/uL (1.2-6.7); Basophils % 0.1; Eosinophils % 0.7; HCT 37.9 % (36.0-46.0); HGB 11.7 g/dL (11.2-15.7); Immature Grans % 0.3; Lymphocytes % 32.8; MCH 27.9 pg (27.0-33.0); MCHC 30.9 % (32.0-36.0); MCV 90 fL (80-95); MPV 9.4 fL (8.0-11.0); Monocytes % 7.9; Neutrophils % 58.2; Platelet Count 201 10^3/uL (130-400); RDW 14.5 % (11.7-14.6); RDW-SD 48.2 fL; WBC 7.55 10^3/uL (4.4-10.8)
[2023-08-06] MEDS: Levothyroxine 100 MCG TAB 200 MCG PO (05:43)
[2023-08-06] MEDS: dilTIAZem 30 MG TAB PO ×3 (05:43→22:37)
[2023-08-06 05:59] LABS: Anion Gap 7.3 mmol/L (3-11); BUN 15 mg/dL (7-18); CO2 33.7 mmol/L (21.0-32.0); CREATININE 1.1 mg/dL (0.55-1.02); Chloride 102 mmol/L (98-107); Estimated GFR 55.76 (mL/min/1.73m2); Glucose 95 mg/dL (74-106); Magnesium 2.4 mg/dL (1.8-2.4); Potassium 4.1 mmol/L (3.5-5.1); Sodium 143 mmol/L (136-145)
[2023-08-06 06:21] LABS: Procalcitonin < 0.1 ng/mL
[2023-08-06] MEDS: Budesonide/Formoterol 160/4.5 6 GM 60 PUFF INH IH ×2 (08:07→20:08)
[2023-08-06] MEDS: Tiotropium Bromide-Respimat 10 PUFF INH 2 PUFF IH (08:08)
[2023-08-06] MEDS: Albuterol/Ipratropium 3 ML UPD VIAL UPD ×4 (08:08→20:44)
[2023-08-06] MEDS: Dexlansoprazole 30 MG CAP 60 MG PO (08:56)
[2023-08-06] MEDS: Docusate Sodium 100 MG CAP 200 MG PO (08:58)
[2023-08-06] MEDS: Furosemide 20 MG TAB PO ×2 (08:59→17:03)
[2023-08-06] MEDS: Enoxaparin 40 MG/0.4 ML SYR SC ×2 (08:59→20:07)
[2023-08-06] MEDS: Pantoprazole 40 MG TABCR PO (09:01)
[2023-08-06] MEDS: Normal Saline Flush 10 ML SYR IVP ×3 (09:01→20:12)
[2023-08-06] MEDS: Polyethylene Glycol 3350 17 GM PACKET PO (09:03)
[2023-08-06] MEDS: Potassium Chloride Liquid 20 MEQ PKT 40 MEQ PO (09:03)
[2023-08-06] MEDS: predniSONE 20 MG TAB 40 MG PO (09:04)
[2023-08-06] MEDS: Spironolactone 25 MG TAB PO (09:04)
[2023-08-06] MEDS: Methadone Liquid 10 MG/ML 98 MG PO (09:06)
--- NOTE | 2023-08-06 09:18 | NUR.NOTE ---
Patient would like to wash up thoroughly before placement of reji wraps.Nursing Note:
--- NOTE | 2023-08-06 13:55 | NUR.NOTE ---
Patient did ambulate the 1/4 loop today. Sats went down to the mid 80's during ambulation. Nursing Note:
--- NOTE | 2023-08-06 15:11 | PTTR_ITS ---
Date of service: 08/06/23 Time of Service: 09:55 PT Notes Visit Reasons: COPD Exacerbation,Hypoxic resp failure Inpatient Physical Therapy Treatment Note [facility] Date: 08/06/2023 PRECAUTIONS: Fall, standard, Activities as able to tolerate SUBJECTIVE: Likes to walk, feels she is doing a little better today. OBJECTIVE: ? PAIN: No reports of pain. VITALS: ?Monitored by respiratory therapist Robbie. Rest: HR at 83b/m with O2 at 89% on high flow With ambulation: HR 94b/m with O2 as low as 84% with nasal cannula at 8L but increased when brought to 10L Post ambulation at rest: HR at 81 with O2 at 92% when placed back on high flow Therapeutic Activities (50004h2): Direct one-on-one instruction in dynamic activities to improve functional performance. ?? ? BED MOBILITY/TRANSFERS? Rolling L/R: SBA to the right Supine-sit: SBA ? Sit-supine: SBA ? Sit-stand: SBA? Stand-sit: SBA? Exercises on edge of bed: * 5x DB with chest expansion/shoulder flexion * 5x DB with chest expansion/ shoulder horizontal abduction * side chest expansion in side bending for 5 slow breaths * 6x slow sit to stands Provided skilled instruction in proper exercise performance Provided skilled cues and instruction on performance and technique throughout. GAIT? Assistive Device: No device ? Weight bearing: Full Assist: CGA ? Distance:? 180ft? Deviation: Slow rasheed with wide MANPREET? ASSESSMENT:?Good effort given with exercises and ambulation. PLAN: Continue to focus on improved ADL function with vitals monitored. TREATMENT CODE/TIME: 65435 x 2, 9:51 to 10:16 (25')
--- NOTE | 2023-08-06 16:02 | PGE_ITS ---
Date of Service Date of service: 08/06/23 Time of Service: 13:05 Assessment and Plan Assessment and plan (1) Acute on chronic respiratory failure with hypoxia and hypercapnia: Status: Acute Assessment and plan: Probably related to recurrent episodes of aspiration, asthma exacerbation, OHS, and less likely COPD. The patient was transferred back to the ICU for closer monitoring due to her persistently high oxygen requirements on July. Continue zosyn. Await sputum culture. Continue fluid restriction. Continue her scheduled oral diuretic regimen as well. Continue BiPAP use at night. She will need to have a qualifying ABG prior to discharge to attempt to get her positive pressure machine. I do think it is a good idea for her to eventually get off of methadone. She needs an EGD/dilatation to prevent future aspiration events. Wean O2 as tolerated. (2) Asthma exacerbation: Status: Acute Assessment and plan: As above - continue prednisone (Dr. Mcdermott had written out a steroid taper in your note). Continue Symbicort and Spiriva. Continue as needed nebulizers. (3) Obesity hypoventilation syndrome: Status: Suspected Assessment and plan: Needs spirometry and an ABG after a night of sleeping off of BiPAP prior to discharge. Considering BiPAP for discharge. (4) COPD with acute exacerbation: Status: Ruled-out Assessment and plan: ? a true COPD exacerbation. The patient does not have much of a smoking hx. (5) Bronchiectasis: Status: Acute Assessment and plan: As above Continue VibraPEP (6) Aspiration into airway: Status: Chronic Assessment and plan: Suspected esophageal stricture by moidified barium swallowing study. Needs an EGD. I have asked our care managers to look into whether or not the patient has an appointment with GI at [facility]. Continue modified diet. Qualifiers: Encounter type: initial encounter Qualified Code(s): T17.908A - Unspecified foreign body in respiratory tract, part unspecified causing other injury, initial encounter (7) Esophageal stricture: Status: Chronic Assessment and plan: As above - needs outpatient EGD. (8) Bilateral leg edema: Status: Chronic Assessment and plan: Continue home diuretics, TEDs. Venous dopplers negative for DVT. Continue TEDs/reji bandages. (9) Hypothyroid: Status: Chronic Assessment and plan: TSH 0.56. Contiue levothyroxine at current dose. Qualifiers: Hypothyroidism type: acquired Qualified Code(s): E03.9 - Hypothyroidism, unspecified (10) GERD (gastroesophageal reflux disease): Status: Chronic Assessment and plan: Continue protonix. Qualifiers: Esophagitis presence: esophagitis presence not specified Qualified Code(s): K21.9 - Gastro-esophageal reflux disease without esophagitis (11) Constipation: Status: Chronic Assessment and plan: Continue colase + miralax. Qualifiers: Constipation type: drug induced constipation Qualified Code(s): K59.03 - Drug induced constipation (12) Opioid use disorder, severe, on maintenance therapy: Status: Chronic Assessment and plan: Continue methadone with plans for an outpatient taper (13) DVT prophylaxis: Status: Acute Assessment and plan: SC enoxaparin (14) Discharge planning issues: Status: Acute Assessment and plan: Full code Continues to require hospitalization Continues to require ICU. Subjective Subjective Interval history since last seen: feels she is feeling better today. She was able to bring up phlegm today. She states she gave a sample of it. Denies dizziness, CP, SOB is better, denies n/v. Exam Narrative Exam Narrative: General: Pleasant middle-aged female who is A&Ox3, wearing a humidified heated cannula Heart: RRR, no m/r/g Lungs: wheezing on expiration B, improved Abdomen: soft, nontender, nondistended Extremities: edema BLEs +2, but looks better - in reji bandages Objective Last Vital Signs Temp 36.9 C 08/06/23 13:34 Pulse 78 08/06/23 13:34 Resp 15 08/06/23 13:34 BP 119/69 08/06/23 13:34 Pulse Ox 92 08/06/23 13:34 Laboratory Results - last 24 hr 08/06/23 05:20 WBC 7.55 RBC 4.20 Hgb 11.7 Hct 37.9 MCV 90 MCH 27.9 MCHC 30.9 L RDW 14.5 Plt Count 201 MPV 9.4 Immature Gran % 0.3 Neutrophils % 58.2 Lymphocytes % 32.8 Monocytes % 7.9 Eosinophils % 0.7 Basophils % 0.1 Nucleated RBC % 0.0 Absolute Neutrophils 4.39 Absolute Lymphocytes 2.48 Absolute Monocytes 0.60 Absolute Eosinophils 0.05 Absolute Basophils 0.01 Sodium 143 Potassium 4.1 Chloride 102 Carbon Dioxide 33.7 H Anion Gap 7.3 BUN 15 Creatinine 1.1 H Est GFR (CKD-EPI 2020) 55.76 Glucose 95 Calcium 9.0 Magnesium 2.4 Procalcitonin < 0.1 Time Spent with Patient Time Spent with Patient: 35-49 minutes Time was spent: preparing to see the patient(eg.review tests), obtaining and/or reviewing separately otained hiistory, ordering medications,tests, procedures, referring, communicating with other health wound care center consultant, indepentently interpreting results, counseling the patient and care coordination
[2023-08-06] MEDS: Zolpidem 5 MG TAB PO (22:02)
[2023-08-06] MEDS: Senna TAB 1 TAB PO (22:03)
[2023-08-06] MEDS: Simvastatin 10 MG TAB PO (22:37)
[2023-08-06] MEDS: Mirtazapine 15 MG TAB 45 MG PO (22:38)
[2023-08-06] MEDS: Mirtazapine 15 MG TAB PO (22:38)
[2023-08-07] VITALS (31 sets, daily range): BP systolic 86–141; BP diastolic 48–86; PULSE 50–89; RESP 5–18; TEMP 31–37.1; O2SAT 87–98
[2023-08-07] MEDS: PIPERACILLIN/TAZO 3.375 GM in Normal Saline 50 ML IVPB ×4 (06:12→23:21)
[2023-08-07 06:13] LABS: Abs Immature Grans 0.02 10^3/uL (0.0-0.06); Absolute Basophil Count 0.01 10^3/uL (0.0-0.2); Absolute Eosinophil Count 0.06 10^3/uL (0.0-0.7); Absolute Lymphocyte Count 2.67 10^3/uL (1.2-3.4); Absolute Monocyte Count 0.61 10^3/uL (0.1-0.8); Absolute Neutrophil Count 4.85 10^3/uL (1.2-6.7); Basophils % 0.1; Eosinophils % 0.7; HCT 38.4 % (36.0-46.0); HGB 11.7 g/dL (11.2-15.7); Immature Grans % 0.2; Lymphocytes % 32.5; MCHC 30.5 % (32.0-36.0); MCV 89 fL (80-95); MPV 9.5 fL (8.0-11.0); Monocytes % 7.4; Neutrophils % 59.1; Platelet Count 221 10^3/uL (130-400); RBC 4.34 10^6/uL (3.93-5.22); RDW 14.3 % (11.7-14.6); RDW-SD 46.2 fL; WBC 8.22 10^3/uL (4.4-10.8)
[2023-08-07] MEDS: Levothyroxine 100 MCG TAB 200 MCG PO (06:14)
[2023-08-07 06:26] LABS: Anion Gap 5.5 mmol/L (3-11); BUN 15 mg/dL (7-18); CO2 35.5 mmol/L (21.0-32.0); Calcium 9.5 mg/dL (8.5-10.1); Chloride 100 mmol/L (98-107); Estimated GFR 62.52 (mL/min/1.73m2); Glucose 85 mg/dL (74-106); Magnesium 2.3 mg/dL (1.8-2.4); Potassium 3.5 mmol/L (3.5-5.1); Sodium 141 mmol/L (136-145)
[2023-08-07] MEDS: Albuterol/Ipratropium 3 ML UPD VIAL UPD ×4 (07:40→21:11)
[2023-08-07] MEDS: Budesonide/Formoterol 160/4.5 6 GM 60 PUFF INH IH ×2 (07:41→21:17)
[2023-08-07] MEDS: Tiotropium Bromide-Respimat 10 PUFF INH 2 PUFF IH (07:41)
[2023-08-07] MEDS: Dexlansoprazole 30 MG CAP 60 MG PO (08:31)
[2023-08-07] MEDS: Spironolactone 25 MG TAB PO (08:31)
[2023-08-07] MEDS: predniSONE 20 MG TAB 40 MG PO (08:32)
[2023-08-07] MEDS: Furosemide 20 MG TAB PO (08:32)
[2023-08-07] MEDS: Docusate Sodium 100 MG CAP 200 MG PO (08:32)
[2023-08-07] MEDS: Pantoprazole 40 MG TABCR PO (08:32)
[2023-08-07] MEDS: Methadone Liquid 10 MG/ML 98 MG PO (08:33)
[2023-08-07] MEDS: Normal Saline Flush 10 ML SYR IVP ×3 (08:33→21:13)
[2023-08-07] MEDS: Potassium Chloride Liquid 20 MEQ PKT 40 MEQ PO (08:34)
[2023-08-07] MEDS: guaiFENesin/D-METHORPHAN HB 5 ML CUP 10 ML PO ×5 (08:34→23:21)
[2023-08-07] MEDS: Polyethylene Glycol 3350 17 GM PACKET PO (08:35)
[2023-08-07] MEDS: Enoxaparin 40 MG/0.4 ML SYR SC ×2 (08:35→21:10)
[2023-08-07] MEDS: dilTIAZem 30 MG TAB PO ×3 (10:53→23:09)
--- NOTE | 2023-08-07 12:17 | RESPIRATORY ---
Patient's current home baseline is 2L at rest, 3L with ambulation (both via nasal cannula). RT and PT walked with patient Tuesday08/06/23. Patient was able to walk without use of ambulatory devices around the small loop of the M/S and ICU floor. Patient needed 10L via OxyMask to maintain SpO2 of 88%. RT and PT walked with patient again, Tuesday08/07/23. Patient was able to walk without use of ambulatory devices around the big loop of the entire second floor. Patient needed 6L via OxyMask to maintain SpO2 of 90% or greater, with one short and minimal desaturation of 89%.
--- NOTE | 2023-08-07 13:02 | PGE_ITS ---
Date of Service Date of service: 08/07/23 Time of Service: 13:02 Assessment and Plan Assessment and plan (1) Acute on chronic respiratory failure with hypoxia and hypercapnia: Status: Acute Assessment and plan: Probably related to recurrent episodes of aspiration, asthma exacerbation, OHS, and less likely COPD. The patient was transferred back to the ICU for closer monitoring due to her persistently high oxygen requirements on July. She has been transferred out of the ICU today. Continue zosyn. Her sputum culture is growing a gram-negative devan. Speciation is pending. Continue fluid restriction. Convert her diuresis to IV. Continue BiPAP use at night. She will need to have a qualifying ABG prior to discharge to attempt to get her positive pressure machine. I do think it is a good idea for her to eventually get off of methadone. She needs an EGD/dilatation to prevent future aspiration events. Wean O2 as tolerated. (2) Asthma exacerbation: Status: Acute Assessment and plan: As above - continue prednisone (Dr. Mcdermott had written out a steroid taper in your note). Continue Symbicort and Spiriva. Continue as needed nebulizers. (3) Obesity hypoventilation syndrome: Status: Suspected Assessment and plan: Needs spirometry and an ABG after a night of sleeping off of BiPAP prior to discharge. Considering BiPAP for discharge. (4) COPD with acute exacerbation: Status: Ruled-out Assessment and plan: ? a true COPD exacerbation. The patient does not have much of a smoking hx and so we do not actually think that she has COPD. (5) Bronchiectasis: Status: Acute Assessment and plan: As above Continue VibraPEP and mucolytics (6) Aspiration into airway: Status: Chronic Assessment and plan: Suspected esophageal stricture by moidified barium swallowstudy. Needs an EGD. I have asked our care managers to look into whether or not the patient has an appointment with GI at [facility]. Continue modified diet. Qualifiers: Encounter type: initial encounter Qualified Code(s): T17.908A - Unspecified foreign body in respiratory tract, part unspecified causing other injury, initial encounter (7) Esophageal stricture: Status: Chronic Assessment and plan: As above - needs outpatient EGD. (8) Bilateral leg edema: Status: Chronic Assessment and plan: Continue home diuretics, TEDs. Venous dopplers negative for DVT. Continue TEDs/reji bandages. (9) Hypothyroid: Status: Chronic Assessment and plan: TSH 0.56. Contiue levothyroxine at current dose. Qualifiers: Hypothyroidism type: acquired Qualified Code(s): E03.9 - Hypothyroidism, unspecified (10) GERD (gastroesophageal reflux disease): Status: Chronic Assessment and plan: Continue protonix. Qualifiers: Esophagitis presence: esophagitis presence not specified Qualified Code(s): K21.9 - Gastro-esophageal reflux disease without esophagitis (11) Constipation: Status: Chronic Assessment and plan: Continue colase + miralax. Qualifiers: Constipation type: drug induced constipation Qualified Code(s): K59.03 - Drug induced constipation (12) Opioid use disorder, severe, on maintenance therapy: Status: Chronic Assessment and plan: Continue methadone with plans for an outpatient taper (13) DVT prophylaxis: Status: Acute Assessment and plan: SC enoxaparin (14) Discharge planning issues: Status: Acute Assessment and plan: Full code Continues to require hospitalization Transfer out of the ICU to the medical surgical floor. On discharge, will need to attempt to qualify for BiPAP. Will need to follow-up with [facility] GI on discharge, and we should try to get her an appointment. Subjective Subjective Interval history since last seen: is feeling better today. She is bringing up creamy sputum now when she coughs. She denies dizziness, chest pain, shortness of breath, nausea. She was weaned down to 35% FiO2 at 45 L on her humidified heated cannula. She spent the night on BiPAP. She has been moved out of the ICU today. Exam Narrative Exam Narrative: General: Pleasant middle-aged female who is A&Ox3, wearing a humidified heated cannula, looks better Heart: RRR, no m/r/g Lungs: Rales at bilateral bases, improved wheezing on expiration B Abdomen: soft, nontender, nondistended Extremities: edema BLEs +2, but looks better - in reji bandages Objective Last Vital Signs Temp 37.1 C 08/07/23 07:24 Pulse 76 08/07/23 11:56 Resp 16 08/07/23 11:56 BP 120/63 08/07/23 09:02 Pulse Ox 92 08/07/23 11:56 Laboratory Results - last 24 hr 02/25/24 05:32 WBC 8.22 RBC 4.34 Hgb 11.7 Hct 38.4 MCV 89 MCH 27.0 MCHC 30.5 L RDW 14.3 Plt Count 221 MPV 9.5 Immature Gran % 0.2 Neutrophils % 59.1 Lymphocytes % 32.5 Monocytes % 7.4 Eosinophils % 0.7 Basophils % 0.1 Nucleated RBC % 0.0 Absolute Neutrophils 4.85 Absolute Lymphocytes 2.67 Absolute Monocytes 0.61 Absolute Eosinophils 0.06 Absolute Basophils 0.01 Sodium 141 Potassium 3.5 Chloride 100 Carbon Dioxide 35.5 H Anion Gap 5.5 BUN 15 Creatinine 1.0 Est GFR (CKD-EPI 2020) 62.52 Glucose 85 Calcium 9.5 Magnesium 2.3 Time Spent with Patient Time Spent with Patient: 35-49 minutes Time was spent: preparing to see the patient(eg.review tests), obtaining and/or reviewing separately otained hiistory, ordering medications,tests, procedures, referring, communicating with other health property caretaker, indepentently interpreting results, counseling the patient and care coordination
--- NOTE | 2023-08-07 13:04 | PTTR_ITS ---
Date of service: 08/07/23 Time of Service: 12:00 PT Notes Visit Reasons: COPD Exacerbation,Hypoxic resp failure Inpatient Physical Therapy Treatment Note [facility] Date: 08/07/2023 PRECAUTIONS: Fall, standard, activities as tolerated, High Flow nasal cannula SUBJECTIVE: Stated she is good with going for a walk. Feeling good today. OBJECTIVE: ? PAIN: No complaints of pain offered. VITALS: Respiratory Therapist Robbie was monitoring vitals while ambulating ? Pre-Treatment: On high flow nasal cannula 91% with HR of 83 b/m Ambulation: On 6L O2 supplement with oxygen mask 89% and above ? Post-Treatment: Returned to high flow at 35% 91% with HR of 75 b/m Therapeutic Activities (51513y7): Direct one-on-one instruction in dynamic activities to improve functional performance. ?? ? BED MOBILITY/TRANSFERS? Rolling L/R: SBA to the right Supine-sit: SBA ? Sit-supine: SBA ? Sit-stand: SBA? Stand-sit: SBA? Exercises off edge of bed: * 6x slow sit to stands * Indicated she has been doing her breathing exercises independently Provided skilled instruction in proper exercise performance Provided skilled cues and instruction on performance and technique throughout. GAIT? Assistive Device: No device ? Weight bearing: Full Assist: CGA ? Distance:? 360ft ? Deviation: Controlled pace, with wide MANPREET? ASSESSMENT:?Did very well with mobility today. No noted SOB with ambulation full loop with O2 supplement at 6L. PLAN: Continue to focus on improved ADL function with vitals monitored. TREATMENT CODE/TIME: 38419 x 1, 12:00 to 12:17 (17') ?
[2023-08-07] MEDS: Furosemide 20 MG/2 ML VIAL IVP (15:40)
--- NOTE | 2023-08-07 19:09 | RESPIRATORY ---
RT Assessment Start: 08/02/23 08:52 Freq: .q shift and prn Status: Active Protocol: Document 08/06/23 08:34 (Rec: 08/06/23 08:48 [id number]) RT Assessment Pulmonary History Pulmonary History Asthma Smoking History Smoking/Tobacco Use Status Former Tobacco Use Tobacco: How many years used 15 Quit Date 06/13/99 Tobacco Type cigarettes Cigarettes per Day 10 Years smoked 15 Smoking packs per day 0.5 OXYGEN HISTORY: Supplemental O2 At Rest 2 With Exertion 3 CPAP Settings N/A Can use home machine Currently no machines at home BIPAP Settings N/A Can you home machine Currently no machines at home Trilogy/AVAPS Settings N/A Can use home machine Currently no machines at home DME/Compliance DME [place] Compliance Good compliance at home. Current Respiratory Symptoms Current Respiratory Symptoms Cough,Sputum production, Wheezing Activity Activity Level Does a little housework, takes dog outside, not big walks though. Respiratory Breath Sounds Breath Sounds Luis wheezing Response Mild response,subjective improvement Pulse Rate <100 Respiratory Rate <18 Shortness of Breath On exertion Respiratory Therapy Score Total 5 Assessment and Plan RT Treatment Protocol Bronchodilator Aerosol Therapy Protocol,Lung Expansion Therapy Protocol,Bronchial Hygiene Therapy Protocol Note Patient scored Mild 5 on this assessment. Patient is currently taking her home medications of Symbicort and Spiriva, as well as QID Duoneb. Patient is using [id number]-330 BiPAP R 10 / IPAP 14 / EPAP 10 / 50 % at night. Using the Airvo HHF during the day Flow: 45 L FiO2: 57% RT has initiated VibraPEP acapella device and Incentive Spirometer. Encouraging patient to use these devices throughout the day, while awake, and as tolerated.
[2023-08-07] MEDS: Simvastatin 10 MG TAB PO (23:09)
[2023-08-07] MEDS: Zolpidem 5 MG TAB PO (23:09)
[2023-08-07] MEDS: Mirtazapine 15 MG TAB 45 MG PO (23:09)
[2023-08-07] MEDS: Senna TAB 1 TAB PO (23:09)
[2023-08-07] MEDS: Mirtazapine 15 MG TAB PO (23:10)
[2023-08-08] VITALS (20 sets, daily range): BP systolic 114–139; BP diastolic 57–87; PULSE 61–83; RESP 2–20; TEMP 31–36.2; O2SAT 89–96
[2023-08-08] MEDS: guaiFENesin/D-METHORPHAN HB 5 ML CUP 10 ML PO ×5 (04:55→20:46)
[2023-08-08] MEDS: Levothyroxine 100 MCG TAB 200 MCG PO (05:54)
[2023-08-08] MEDS: PIPERACILLIN/TAZO 3.375 GM in Normal Saline 50 ML IVPB (05:55)
[2023-08-08 06:50] LABS: Anion Gap 5.5 mmol/L (3-11); BUN 16 mg/dL (7-18); CO2 36.5 mmol/L (21.0-32.0); CREATININE 1.2 mg/dL (0.55-1.02); Calcium 9.6 mg/dL (8.5-10.1); Chloride 97 mmol/L (98-107); Estimated GFR 50.23 (mL/min/1.73m2); Glucose 101 mg/dL (74-106); Magnesium 2.3 mg/dL (1.8-2.4); Potassium 3.4 mmol/L (3.5-5.1); Sodium 139 mmol/L (136-145)
--- NOTE | 2023-08-08 07:22 | W.PULMPROG ---
Assessment and Plan Assessment and plan (1) Obesity hypoventilation syndrome: Status: Suspected (2) Bronchiectasis: Status: Acute (3) Asthma exacerbation: Status: Acute (4) Acute on chronic respiratory failure with hypoxia and hypercapnia: Status: Acute (5) Aspiration into airway: Status: Chronic Assessment and plan: This is a 63 yo admitted for acute on chronic hypercapnic and hypoxic respiratory failure and prior need for ICU. We should try and qualify her for BiPAP on discharge, but the testing (spirometry, am ABG and overnight ox) needs to be completed when she is closer to her baseline FiO2. I am hopeful she will tolerate nasal cannula today. If she does well and is around 3LPM we can attempt and overnight oximetry (not with BiPAP) on her nasal cannula and a morning time ABG after a night without BiPAP. If she is still requiring higher FiO2's or does not succeed with NC today then those test will have to wait. Acute on chronic hypoxic and hypercapnic respiratory failure - continue to wean NC as tolerated - recommend BiPAP at night and wean FiO2 as able - IS and mobilization - continue to work with PT OHS - when she is close to her baseline O2 needs: - inpatient spirometry - morning ABG after a night without BiPAP - overnight oximetry on 1.5LPM - if her ABG PaCO2 >/= 45mmHg, her FEV1/FVC>/= 70%, and her overnight oximetry shows >5min hypoxia she will qualify for BiPAP at home - i will arrange f/u appt for her with me Asthma exacerbation - continue prednisone 40mg for 7 days total, then 30mg for 3 days, 20mg for 3 days, 10mg for 3 days, 5mg for 3 days - continue Symbicort - ok to continue Spiriva - prn nebs Bronchiectasis - VibraPEP Aspiration - proper diet and aspiration precautions - can continue antibiotics for a total of 5 days of therapy Qualifiers: Encounter type: initial encounter Qualified Code(s): T17.908A - Unspecified foreign body in respiratory tract, part unspecified causing other injury, initial encounter General Date Of Service Date of service: 08/08/23 Time of Service: 07:22 Reason for Consult: Respiratory failure Subjective Note Note: She remains on HFNC this morning 40L and 37%. She feels as though her breathing is stable today. Exam Narrative Exam Narrative: Gen: NAD, normal respiratory effort, well-nourished HENT: PERRL, nasal turbinates normal without erythema or inflammation, moist oral mucosa, Mallampati 2, No LAD or JVD Chest: No respiratory distress, normal appearance of chest, clear to auscultation bilaterally, no wheezing or crackles Heart: regular rate and rhythym, no murmurs, rubs or gallops Abdomen: Non-distended, soft, non tender Extremities: No clubbing, 1+ edema, no cyanosis, rashes Neuro: AAOx3 , non focal Psych: cooperative, appropriate mental affect Objective Last Vital Signs Temp 35.6 C L 08/08/23 03:25 Pulse 61 08/08/23 03:25 Resp 18 08/08/23 03:25 BP 135/87 08/08/23 03:25 Pulse Ox 96 08/08/23 03:25 Laboratory Results - last 24 hr 08/08/23 05:55 Sodium 139 Potassium 3.4 L Chloride 97 L Carbon Dioxide 36.5 H Anion Gap 5.5 BUN 16 Creatinine 1.2 H Est GFR (CKD-EPI 2020) 50.23 Glucose 101 Calcium 9.6 Magnesium 2.3 Results Medications Medications: Active Medications Generic Name Dose Route Start Last Admin Trade Name Freq PRN Reason Stop Dose Admin Acetaminophen 650 mg 08/02/23 08:53 08/02/23 20:44 Acetaminophen 325 Mg Tab PO 650 mg Q6H PRN PRN Administration Albuterol Sulfate 2.5 mg 07/31/23 14:31 08/04/23 06:52 Albuterol 2.5 Mg/3 Ml Inh Soln Vial UPD 2.5 mg Q2H PRN PRN Administration Albuterol/Ipratropium 3 ml 07/31/23 16:00 08/07/23 21:11 Albuterol/Ipratropium 3 Ml Upd Vial UPD 3 ml QID EUGENIO Administration Budesonide/Formoterol Fumarate 2 puff 07/31/23 20:00 08/07/23 21:17 Budesonide/Formoterol 160/4.5 6 Gm 60 Puff Inh IH 2 puffs BID [facility] Administration Device 1 each 07/31/23 14:31 Inhaler, Assist Device DIRECTED [facility] Dexlansoprazole 60 mg 08/04/23 22:00 08/07/23 08:31 Dexlansoprazole 30 Mg Cap PO 60 mg DAILY@0730 EUGENIO Administration Diltiazem HCl 30 mg 07/31/23 14:00 08/08/23 06:05 Diltiazem 30 Mg Tab PO Not Given Q8H EUGENIO Docusate Sodium 200 mg 08/01/23 08:30 08/07/23 08:32 Docusate Sodium 100 Mg Cap PO 200 mg DAILY EUGENIO Administration Enoxaparin Sodium 40 mg 08/02/23 20:00 08/07/23 21:10 Enoxaparin 40 Mg/0.4 Ml Syr SC 40 mg BID EUGENIO Administration Furosemide 20 mg 08/07/23 16:00 08/07/23 15:40 Furosemide 20 Mg/2 Ml Vial IVP 20 mg BID@0800,1600 EUGENIO Administration Guaifenesin/Dextromethorphan 10 ml 08/04/23 00:00 08/08/23 04:55 Guaifenesin/D-Methorphan Hb 5 Ml Cup PO 10 ml Q4H EUGEINO Administration Piperacillin Sod/Tazobactam 50 mls @ 100 mls/hr 07/31/23 18:00 08/08/23 05:55 Sod 3.375 gm/ Sodium Chloride IVPB 100 mls/hr Q6H EUGENIO Administration Sodium Chloride 500 mls @ 0 mls/hr 07/31/23 17:50 08/04/23 18:36 Saline 500ml Bag IV 1 mls/hr PRN PRN Administration As Directed IV Miscellaneous Supplies 1 each 07/31/23 09:15 Iv Access IV DIRECTED [facility] Levothyroxine Sodium 200 mcg 08/02/23 06:00 08/08/23 05:54 Levothyroxine 100 Mcg Tab PO 200 mcg DAILY@0600 EUGENIO Administration Lorazepam 1 mg 07/31/23 14:31 08/04/23 00:17 Lorazepam 1 Mg Tab PO 1 mg Q6H PRN PRN Administration Methadone HCl 98 mg 07/31/23 15:00 08/07/23 08:33 Methadone Liquid 10 Mg/Ml PO 98 mg DAILY EUGENIO Administration Mirtazapine 45 mg 07/31/23 22:00 08/07/23 23:09 Mirtazapine 15 Mg Tab PO 45 mg HS EUGENIO Administration Mirtazapine 15 mg 07/31/23 22:00 08/07/23 23:10 Mirtazapine 15 Mg Tab PO 15 mg HS EUGENIO Administration Pantoprazole Sodium 40 mg 08/01/23 07:30 08/07/23 08:32 Pantoprazole 40 Mg Tabcr PO 40 mg DAILY@0730 EUGENIO Administration Polyethylene Glycol 17 gm 08/03/23 08:30 08/07/23 08:35 Polyethylene Glycol 3350 17 Gm Packet PO 17 gm DAILY EUGENIO Administration Polyethylene Glycol 17 gm 08/02/23 14:29 Polyethylene Glycol 3350 17 Gm Packet PO BID PRN PRN Potassium Chloride 40 meq 08/02/23 08:30 08/07/23 08:34 Potassium Chloride Liquid 20 Meq Pkt PO 40 meq DAILY EUGENIO Administration Prednisone 40 mg 08/03/23 08:30 08/07/23 08:32 Prednisone 20 Mg Tab PO 40 mg DAILY EUGENIO Administration Sennosides 1 tab 07/31/23 22:00 08/07/23 23:09 Senna Tab PO 1 tab HS EUGENIO Administration Simvastatin 10 mg 07/31/23 22:00 08/07/23 23:09 Simvastatin 10 Mg Tab PO 10 mg HS EUGENIO Administration Sodium Chloride 0 ml 07/31/23 09:07 08/07/23 15:40 Normal Saline Flush 10 Ml Syr IVP 20 ml PRN PRN Administration Sodium Chloride 0 ml 07/31/23 20:00 08/07/23 21:13 Normal Saline Flush 10 Ml Syr IVP 10 ml BID EUGENIO Administration Sodium Chloride 0 ml 07/31/23 09:07 Normal Saline 10 Ml Vial IJ DIRECTED PRN Spironolactone 25 mg 08/01/23 08:30 08/07/23 08:31 Spironolactone 25 Mg Tab PO 25 mg DAILY EUGENIO Administration Tiotropium [place] 2 puff 08/01/23 08:30 08/07/23 07:41 Tiotropium [place]-Respimat 10 Puff Inh IH 2 puff DAILY EUGENIO Administration Zolpidem Tartrate 5 mg 07/31/23 22:00 08/07/23 23:09 Zolpidem 5 Mg Tab PO 5 mg HS EUGENIO Administration Allergies No Known Allergies Allergy (Unverified 07/31/23 09:55) Labs 08/07/23 05:32 08/08/23 05:55 Labs: 08/06/23 08:33 Sputum Sputum Culture - Preliminary Gram Negative Patrick 08/06/23 08:33 Sputum Gram Stain - Final 07/31/23 09:59 Blood Blood Culture - Final NO GROWTH 120 HOURS 07/31/23 09:37 Blood Blood Culture - Final NO GROWTH 120 HOURS Laboratory Tests Range/Units 07/31/23 07/31/23 07/31/23 09:34 09:37 09:46 WBC (4.4-10.8) 10^3/uL 5.97 RBC (3.93-5.22) 10^6/uL 4.62 Hgb (11.2-15.7) g/dL 12.8 Hct (36.0-46.0) % 41.7 MCV (80-95) fL 90 MCH (27.0-33.0) pg 27.7 MCHC (32.0-36.0) % 30.7 L RDW (11.7-14.6) % 13.8 Plt Count (130-400) 10^3/uL 262 MPV (8.0-11.0) fL 9.1 Immature Gran % 0.0 Neutrophils % 55.5 Lymphocytes % 29.8 Monocytes % 6.4 Eosinophils % 7.5 Basophils % 0.8 Nucleated RBC % (0.0-0.3) % 0.0 Absolute Neutrophils (1.2-6.7) 10^3/uL 3.31 Absolute Lymphocytes (1.2-3.4) 10^3/uL 1.78 Absolute Monocytes (0.1-0.8) 10^3/uL 0.38 Absolute Eosinophils (0.0-0.7) 10^3/uL 0.45 Absolute Basophils (0.0-0.2) 10^3/uL 0.05 PT (9.1-11.1) sec 10.9 INR (0.9-1.1) 1.1 APTT (23.6-32.8) sec 28.1 VBG pH (7.31-7.41) 7.30 L VBG pCO2 (41-51) mmHg 69 H* VBG pO2 mmHg 44 VBG HCO3 (23-28) mmol/L 34 H VBG Total CO2 (24-29) mmol/L 32 H VBG O2 Saturation % 75 VBG Base Excess (-2-3) mmol/L 7 H Sodium (136-145) mmol/L 143 Potassium (3.5-5.1) mmol/L 3.7 Chloride (98-107) mmol/L 102 Carbon Dioxide (21.0-32.0) mmol/L 33.8 H Anion Gap (3-11) mmol/L 7.2 BUN (7-18) mg/dL 5 L Creatinine (0.55-1.02) mg/dL 0.9 Est GFR (CKD-EPI 2020) (mL/min/1.73m2) 70.95 Glucose (74-106) mg/dL 101 Calcium (8.5-10.1) mg/dL 9.2 Magnesium (1.8-2.4) mg/dL 2.1 Total Bilirubin (0.2-1.0) mg/dL 0.6 AST (15-37) U/L 22 ALT (14-59) U/L 24 Alkaline Phosphatase (46-116) U/L 98 Troponin I (< or =60) ng/L < 50 NT-Pro-B Natriuret Pep (<300) pg/mL 38 Total Protein (6.4-8.2) g/dL 7.8 Albumin (3.4-5.0) g/dL 4.0 Procalcitonin ng/mL < 0.1 TSH (0.36-3.74) uIU/mL 0.56 COVID-19 Source Nasal/Nares SARS-CoV-2 (PCR) (Negative) Negative Range/Units 07/31/23 08/01/23 08/02/23 12:53 05:34 05:49 WBC (4.4-10.8) 10^3/uL 7.77 7.53 RBC (3.93-5.22) 10^6/uL 4.10 4.42 Hgb (11.2-15.7) g/dL 11.3 12.1 Hct (36.0-46.0) % 36.3 39.4 MCV (80-95) fL 89 89 MCH (27.0-33.0) pg 27.6 27.4 MCHC (32.0-36.0) % 31.1 L 30.7 L RDW (11.7-14.6) % 13.9 14.3 Plt Count (130-400) 10^3/uL 234 239 MPV (8.0-11.0) fL 9.1 9.7 Immature Gran % 0.4 Neutrophils % 81.3 Lymphocytes % 12.0 Monocytes % 6.2 Eosinophils % 0.0 Basophils % 0.1 Nucleated RBC % (0.0-0.3) % 0.0 Absolute Neutrophils (1.2-6.7) 10^3/uL 6.32 Absolute Lymphocytes (1.2-3.4) 10^3/uL 0.93 L Absolute Monocytes (0.1-0.8) 10^3/uL 0.48 Absolute Eosinophils (0.0-0.7) 10^3/uL 0.00 Absolute Basophils (0.0-0.2) 10^3/uL 0.01 PT (9.1-11.1) sec INR (0.9-1.1) APTT (23.6-32.8) sec VBG pH (7.31-7.41) VBG pCO2 (41-51) mmHg VBG pO2 mmHg VBG HCO3 (23-28) mmol/L VBG Total CO2 (24-29) mmol/L VBG O2 Saturation % VBG Base Excess (-2-3) mmol/L Sodium (136-145) mmol/L 143 146 H Potassium (3.5-5.1) mmol/L 3.6 3.1 L Chloride (98-107) mmol/L 102 103 Carbon Dioxide (21.0-32.0) mmol/L 34.2 H 37.9 H Anion Gap (3-11) mmol/L 6.8 5.1 BUN (7-18) mg/dL 12 9 Creatinine (0.55-1.02) mg/dL 0.9 1.0 Est GFR (CKD-EPI 2020) (mL/min/1.73m2) 70.95 62.52 Glucose (74-106) mg/dL 150 H 82 Calcium (8.5-10.1) mg/dL 8.8 9.1 Magnesium (1.8-2.4) mg/dL Total Bilirubin (0.2-1.0) mg/dL AST (15-37) U/L ALT (14-59) U/L Alkaline Phosphatase (46-116) U/L Troponin I (< or =60) ng/L < 50 NT-Pro-B Natriuret Pep (<300) pg/mL Total Protein (6.4-8.2) g/dL Albumin (3.4-5.0) g/dL Procalcitonin ng/mL TSH (0.36-3.74) uIU/mL COVID-19 Source SARS-CoV-2 (PCR) (Negative) Range/Units 08/03/23 08/03/23 08/04/23 05:25 10:18 05:38 WBC (4.4-10.8) 10^3/uL 8.95 8.72 RBC (3.93-5.22) 10^6/uL 4.59 4.22 Hgb (11.2-15.7) g/dL 12.5 11.7 Hct (36.0-46.0) % 40.7 37.8 MCV (80-95) fL 89 90 MCH (27.0-33.0) pg 27.2 27.7 MCHC (32.0-36.0) % 30.7 L 31.0 L RDW (11.7-14.6) % 14.2 14.6 Plt Count (130-400) 10^3/uL 252 225 MPV (8.0-11.0) fL 9.8 9.5 Immature Gran % 0.3 0.5 Neutrophils % 85.7 66.1 Lymphocytes % 9.6 25.7 Monocytes % 4.4 7.5 Eosinophils % 0.0 0.1 Basophils % 0.0 0.1 Nucleated RBC % (0.0-0.3) % 0.0 0.0 Absolute Neutrophils (1.2-6.7) 10^3/uL 7.67 H 5.77 Absolute Lymphocytes (1.2-3.4) 10^3/uL 0.86 L 2.24 Absolute Monocytes (0.1-0.8) 10^3/uL 0.39 0.65 Absolute Eosinophils (0.0-0.7) 10^3/uL 0.00 0.01 Absolute Basophils (0.0-0.2) 10^3/uL 0.00 0.01 PT (9.1-11.1) sec INR (0.9-1.1) APTT (23.6-32.8) sec VBG pH (7.31-7.41) 7.45 H VBG pCO2 (41-51) mmHg 52 H VBG pO2 mmHg 43 VBG HCO3 (23-28) mmol/L 36 H VBG Total CO2 (24-29) mmol/L 32 H VBG O2 Saturation % 78 VBG Base Excess (-2-3) mmol/L 12 H Sodium (136-145) mmol/L 144 144 Potassium (3.5-5.1) mmol/L 3.6 3.2 L Chloride (98-107) mmol/L 101 103 Carbon Dioxide (21.0-32.0) mmol/L 33.8 H 34.4 H Anion Gap (3-11) mmol/L 9.2 6.6 BUN (7-18) mg/dL 11 13 Creatinine (0.55-1.02) mg/dL 1.0 1.0 Est GFR (CKD-EPI 2020) (mL/min/1.73m2) 62.52 62.52 Glucose (74-106) mg/dL 110 H 104 Calcium (8.5-10.1) mg/dL 9.7 9.0 Magnesium (1.8-2.4) mg/dL 2.1 2.2 Total Bilirubin (0.2-1.0) mg/dL AST (15-37) U/L ALT (14-59) U/L Alkaline Phosphatase (46-116) U/L Troponin I (< or =60) ng/L NT-Pro-B Natriuret Pep (<300) pg/mL Total Protein (6.4-8.2) g/dL Albumin (3.4-5.0) g/dL Procalcitonin ng/mL TSH (0.36-3.74) uIU/mL COVID-19 Source SARS-CoV-2 (PCR) (Negative) Range/Units 08/04/23 08/05/23 08/06/23 07:10 05:35 05:20 WBC (4.4-10.8) 10^3/uL 7.81 7.55 RBC (3.93-5.22) 10^6/uL 4.22 4.20 Hgb (11.2-15.7) g/dL 11.6 11.7 Hct (36.0-46.0) % 37.8 37.9 MCV (80-95) fL 90 90 MCH (27.0-33.0) pg 27.5 27.9 MCHC (32.0-36.0) % 30.7 L 30.9 L RDW (11.7-14.6) % 14.6 14.5 Plt Count (130-400) 10^3/uL 211 201 MPV (8.0-11.0) fL 9.4 9.4 Immature Gran % 0.3 0.3 Neutrophils % 54.6 58.2 Lymphocytes % 37.1 32.8 Monocytes % 7.4 7.9 Eosinophils % 0.5 0.7 Basophils % 0.1 0.1 Nucleated RBC % (0.0-0.3) % 0.0 0.0 Absolute Neutrophils (1.2-6.7) 10^3/uL 4.26 4.39 Absolute Lymphocytes (1.2-3.4) 10^3/uL 2.90 2.48 Absolute Monocytes (0.1-0.8) 10^3/uL 0.58 0.60 Absolute Eosinophils (0.0-0.7) 10^3/uL 0.04 0.05 Absolute Basophils (0.0-0.2) 10^3/uL 0.01 0.01 PT (9.1-11.1) sec INR (0.9-1.1) APTT (23.6-32.8) sec VBG pH (7.31-7.41) 7.42 H VBG pCO2 (41-51) mmHg 59 H VBG pO2 mmHg 40 VBG HCO3 (23-28) mmol/L 38 H VBG Total CO2 (24-29) mmol/L 35 H VBG O2 Saturation % 71 VBG Base Excess (-2-3) mmol/L 13 H Sodium (136-145) mmol/L 144 143 Potassium (3.5-5.1) mmol/L 3.6 4.1 Chloride (98-107) mmol/L 102 102 Carbon Dioxide (21.0-32.0) mmol/L 34.8 H 33.7 H Anion Gap (3-11) mmol/L 7.2 7.3 BUN (7-18) mg/dL 14 15 Creatinine (0.55-1.02) mg/dL 1.1 H 1.1 H Est GFR (CKD-EPI 2020) (mL/min/1.73m2) 55.76 55.76 Glucose (74-106) mg/dL 83 95 Calcium (8.5-10.1) mg/dL 8.9 9.0 Magnesium (1.8-2.4) mg/dL 2.3 2.4 Total Bilirubin (0.2-1.0) mg/dL AST (15-37) U/L ALT (14-59) U/L Alkaline Phosphatase (46-116) U/L Troponin I (< or =60) ng/L NT-Pro-B Natriuret Pep (<300) pg/mL Total Protein (6.4-8.2) g/dL Albumin (3.4-5.0) g/dL Procalcitonin ng/mL < 0.1 TSH (0.36-3.74) uIU/mL COVID-19 Source SARS-CoV-2 (PCR) (Negative) Range/Units 08/07/23 08/08/23 05:32 05:55 WBC (4.4-10.8) 10^3/uL 8.22 RBC (3.93-5.22) 10^6/uL 4.34 Hgb (11.2-15.7) g/dL 11.7 Hct (36.0-46.0) % 38.4 MCV (80-95) fL 89 MCH (27.0-33.0) pg 27.0 MCHC (32.0-36.0) % 30.5 L RDW (11.7-14.6) % 14.3 Plt Count (130-400) 10^3/uL 221 MPV (8.0-11.0) fL 9.5 Immature Gran % 0.2 Neutrophils % 59.1 Lymphocytes % 32.5 Monocytes % 7.4 Eosinophils % 0.7 Basophils % 0.1 Nucleated RBC % (0.0-0.3) % 0.0 Absolute Neutrophils (1.2-6.7) 10^3/uL 4.85 Absolute Lymphocytes (1.2-3.4) 10^3/uL 2.67 Absolute Monocytes (0.1-0.8) 10^3/uL 0.61 Absolute Eosinophils (0.0-0.7) 10^3/uL 0.06 Absolute Basophils (0.0-0.2) 10^3/uL 0.01 PT (9.1-11.1) sec INR (0.9-1.1) APTT (23.6-32.8) sec VBG pH (7.31-7.41) VBG pCO2 (41-51) mmHg VBG pO2 mmHg VBG HCO3 (23-28) mmol/L VBG Total CO2 (24-29) mmol/L VBG O2 Saturation % VBG Base Excess (-2-3) mmol/L Sodium (136-145) mmol/L 141 139 Potassium (3.5-5.1) mmol/L 3.5 3.4 L Chloride (98-107) mmol/L 100 97 L Carbon Dioxide (21.0-32.0) mmol/L 35.5 H 36.5 H Anion Gap (3-11) mmol/L 5.5 5.5 BUN (7-18) mg/dL 15 16 Creatinine (0.55-1.02) mg/dL 1.0 1.2 H Est GFR (CKD-EPI 2020) (mL/min/1.73m2) 62.52 50.23 Glucose (74-106) mg/dL 85 101 Calcium (8.5-10.1) mg/dL 9.5 9.6 Magnesium (1.8-2.4) mg/dL 2.3 2.3 Total Bilirubin (0.2-1.0) mg/dL AST (15-37) U/L ALT (14-59) U/L Alkaline Phosphatase (46-116) U/L Troponin I (< or =60) ng/L NT-Pro-B Natriuret Pep (<300) pg/mL Total Protein (6.4-8.2) g/dL Albumin (3.4-5.0) g/dL Procalcitonin ng/mL TSH (0.36-3.74) uIU/mL COVID-19 Source SARS-CoV-2 (PCR) (Negative)
[2023-08-08 07:27] LABS: Procalcitonin < 0.1 ng/mL
[2023-08-08] MEDS: Albuterol/Ipratropium 3 ML UPD VIAL UPD ×4 (08:27→19:54)
[2023-08-08] MEDS: Tiotropium Bromide-Respimat 10 PUFF INH 2 PUFF IH (08:29)
[2023-08-08] MEDS: Budesonide/Formoterol 160/4.5 6 GM 60 PUFF INH IH ×2 (08:29→19:56)
[2023-08-08] MEDS: Enoxaparin 40 MG/0.4 ML SYR SC ×2 (08:34→20:46)
[2023-08-08] MEDS: predniSONE 20 MG TAB 40 MG PO (08:35)
[2023-08-08] MEDS: Potassium Chloride Liquid 20 MEQ PKT 40 MEQ PO (08:35)
[2023-08-08] MEDS: Spironolactone 25 MG TAB PO (08:36)
[2023-08-08] MEDS: Pantoprazole 40 MG TABCR PO (08:36)
[2023-08-08] MEDS: Docusate Sodium 100 MG CAP 200 MG PO (08:36)
[2023-08-08] MEDS: Polyethylene Glycol 3350 17 GM PACKET PO (08:37)
[2023-08-08] MEDS: Methadone Liquid 10 MG/ML 98 MG PO (08:38)
[2023-08-08] MEDS: Normal Saline Flush 10 ML SYR IVP ×5 (08:39→20:47)
[2023-08-08] MEDS: Dexlansoprazole 30 MG CAP 60 MG PO (08:52)
[2023-08-08] MEDS: Furosemide 20 MG/2 ML VIAL IVP ×2 (09:45→16:37)
--- NOTE | 2023-08-08 10:47 | PTTR_ITS ---
Date of service: 08/08/23 Time of Service: 10:28 PT Notes Visit Reasons: COPD Exacerbation,Hypoxic resp failure Inpatient Physical Therapy Treatment Note [facility] Date: 08/08/23 PRECAUTIONS: Standard, activity as tolerated. SUBJECTIVE: Patient reports feeling good today, relieved to be on regular high flow nasal cannula vs the high flow mask. Feels as though she is getting better. AFTERNOON: Clarifies that hip pain started when she was attempting to lift right leg without support, feels as though she strained a muscle, and it has hurt off and on ever since. OBJECTIVE: Sitting up in bedside chair, agreeable to therapy ? PAIN: yes, pain reported in right hip which feels as though it improves with activity, worsens with too much rest. Patient reports this has been going on for maybe six months. VITALS: ? Pre-Treatment: 87%, 84 bpm on 4L/min supplemental O2 AFTERNOON: 93%, 86 bpm on 4L ? Post-Treatment: 90%, 92 bpm on 4L/min supplemental O2 AFTERNOON: 94%, 90 bpm on 4L ? BED MOBILITY/TRANSFERS? Rolling L/R: not assessed Supine-sit: not assessed ? Sit-supine: not assessed ? Sit-stand: SBA ? Stand-sit: SBA ? Bed-Chair: SBA ? Chair-bed: SBA ? Therapeutic Exercises ([id number]): Direct one-on-one instruction in therapeutic exercises to develop strength, endurance, range of motion and flexibility. Ambulation ? Assistive Device: none ? Weight bearing: full Assist: SBA ? Distance:? 900 feet? ?AFTERNOON: 900 feet ? Deviation: Wide MANPREET. Patient desats to 85% on 4L/min within 75 feet. This clinician turns O2 tank up to 6L/min, and patient remains between 88-93% throughout remainder of ambulation, even engaging in conversation with clinician. ? ?AFTERNOON: Patient maintains SaO2 between 88 and 91 % on 4L even when engaged in conversation Education provided on energy conservation techniques. ? Access Code: [email or web address] URL: [email or web address] Date: 08/08/2023 Prepared by: Danelle Lipscomb Patient Education - Understanding Energy Conservation - Energy Conservation During Daily Tasks - Home Management - Housekeeping ? Provided skilled instruction in proper exercise performance Provided skilled manual cues to facilitate proper muscle recruitment and/or form. ASSESSMENT:? Patient tolerates therapy well. Returns to bedside chair at close of session. Reports that hip feels much better after walking. PLAN: Continue global strengthening per plan of care until patient is medically cleared for discharge. TREATMENT CODE/TIME: 16 minutes beginning at 10:28 and 15 minutes beginning at 14:15 for a total of 31 minutes today.
[2023-08-08] MEDS: dilTIAZem 30 MG TAB PO (13:50)
--- NOTE | 2023-08-08 17:16 | W.PM.PROGNOT ---
Date of Service Date of service: 08/08/23 Time of Service: 17:16 Assessment and Plan Assessment and plan (1) Acute on chronic respiratory failure with hypoxia and hypercapnia: Status: Acute Assessment and plan: Patient has been weaned off high flow oxygen and is now on a simple nasal cannula at 3 L/min with an SpO2 of 91%. Plan will be to get an overnight pulse oximetry to evaluate for nocturnal hypoxemia. In the morning we will get an ABG. Dr. Pitts saw the patient this morning we will try to get her qualified for home BiPAP unit. Will continue to treat her asthma exacerbation with prednisone taper as outlined by Dr. Pitts continue with Spiriva and Symbicort and DuoNeb treatments. Patient has been on Zosyn since 07/31/2023 with no evidence of pneumonic consolidation and no fever or leukocytosis. However sputum is now showing gram-negative devan. This morning I changed her from Zosyn to Augmentin and was going to treat her for 3-5 more days of antibiotics but in light of her gram-negative rods her sputum has changed her to cefpodoxime. (2) Obesity hypoventilation syndrome: Status: Suspected (3) Bronchiectasis: Status: Acute Qualifiers: Bronchiectasis type: with acute exacerbation Qualified Code(s): J47.1 - Bronchiectasis with (acute) exacerbation (4) Asthma exacerbation: Status: Acute Qualifiers: Asthma severity: moderate Asthma persistence: unspecified Qualified Code(s): J45.901 - Unspecified asthma with (acute) exacerbation (5) Aspiration into airway: Status: Chronic Assessment and plan: Secondary to GERD. Patient needs outpatient EGD. Continue use of PPI. Continue appropriate feeding precautions w/ diet modification, upright in her chair for all feedings, patient to alternate liquids and solids. No meals or snacks w/in 3 window of lying down. Qualifiers: Encounter type: initial encounter Qualified Code(s): T17.908A - Unspecified foreign body in respiratory tract, part unspecified causing other injury, initial encounter Subjective Subjective Interval history since last seen: No acute complaints today. Has been coughing up some cream colored mucous. No hemoptysis. Exam Narrative Exam Narrative: Middle-aged obese white female sitting up in a chair wearing nasal cannula she is now down to 3 L/min with an SpO2 of 91% at rest. No acute respiratory distress alert and orient x 3 Lungs with diffuse end expiratory wheezes no rhonchi or rales Heart is regular rate and rhythm no murmur rub Abdomen obese soft nontender Lower extremities with trace to 1+ pitting pedal and ankle edema Objective Last Vital Signs Temp 36.2 C L 08/08/23 15:22 Pulse 68 08/08/23 15:22 Resp 20 08/08/23 15:22 BP 139/60 08/08/23 15:22 Pulse Ox 89 L 08/08/23 15:22 Laboratory Results - last 24 hr 08/08/23 05:55 Sodium 139 Potassium 3.4 L Chloride 97 L Carbon Dioxide 36.5 H Anion Gap 5.5 BUN 16 Creatinine 1.2 H Est GFR (CKD-EPI 2020) 50.23 Glucose 101 Calcium 9.6 Magnesium 2.3 Procalcitonin < 0.1 Time Spent with Patient Time Spent with Patient: 25-34 minutes Time was spent: preparing to see the patient(eg.review tests), ordering medications,tests, procedures, referring, communicating with other health wild animal caretaker, indepentently interpreting results, counseling the patient and care coordination
--- NOTE | 2023-08-08 19:02 | CMPROGNOTE_ITS ---
Date of service: 08/08/23 Time of Service: 19:02 Care Management Progress Note Progress Note Text Progress Note Text: S/O: Laurence was sitting up in her chair when CM met with her. She stated that she is doing ok today. She was moved from the ICU to med surge over the weekend, and she stated that she enjoys having more privacy in the larger room on med/surge. Per report, Laurence is improving and will likely be ready for discharge in the next 24-48H. RT is working on obtaining a home BiPap machine for Laurence. CM reviewed HH services, and Laurence stated that she doesn't feel that she will require any services upon discharge. CM will continue to follow. A: 63 year old female admitted to [facility] 07/31/23 for COPD exacerbation, hypoxic respiratory failure P: Frieda will return home when ready per MD, anticipate she will transport via [facility], coordinated by CM. She will have outpatient follow up with [facility] for EGD. Her PCP is at [facility] as well, and she utilizes [facility] for transport. Frieda has weekly [facility] appointments on Fridays. Per MD, RT is working to coordinate BIPAP for home use, Frieda utilizes [facility] for home O2 at baseline already. CM following. SDOH(Care Management) Screening Will the Patient Participate in the Screening?: Yes Do you worry about having a steady place to live?: yes Problems where you live: pests such as bugs, ants or mice and mold In the past 12 months, have you had to go without electric, gas, oil or water in your home?: no Have you or anyone in your house had to go without enough food to eat?: no Has lack of transportation kept you from medical appointments or from doing things needed for daily living?: yes Has anyone in your support network made you feel unsafe for any reason?: no Social Determinants of Health Comments(SDOH Details): Entry way, on first 3 steps the drain gutter leaks causing ice buildup on steps. Landlord sent someone to fix it--only partial fix was done per patient. Health Related Social Needs Health related social needs: inadequate housing(Z59.1), housing instability, housed, with risk of homelessness(Z59.811) and transportation insecurity(Z59.82)
[2023-08-08] MEDS: Cefpodoxime 200 MG TAB 400 MG PO (20:46)
[2023-08-08] MEDS: Simvastatin 10 MG TAB PO (20:47)
[2023-08-08] MEDS: Senna TAB 1 TAB PO (20:47)
[2023-08-09] VITALS (12 sets, daily range): BP systolic 112–145; BP diastolic 66–81; PULSE 65–90; RESP 2–20; TEMP 35.9–36.8; O2SAT 89–95
[2023-08-09] MEDS: Mirtazapine 15 MG TAB PO ×2 (00:35→21:30)
[2023-08-09] MEDS: Zolpidem 5 MG TAB PO ×2 (00:35→21:29)
[2023-08-09] MEDS: Mirtazapine 15 MG TAB 45 MG PO ×2 (00:35→21:30)
[2023-08-09] MEDS: Levothyroxine 100 MCG TAB 200 MCG PO (06:11)
[2023-08-09] MEDS: dilTIAZem 30 MG TAB PO ×3 (06:11→21:30)
[2023-08-09 06:37] LABS: BE 13 mmol/L (-2-3); HCO3 37 mmol/L (22-26); pCO2 55 mmHg (35-45); pH 7.44 (7.35-7.45); pO2 64 mmHg (80-105); sO2 93 % (95-98); tCO2 33 mmol/L (23-27)
[2023-08-09 06:38] LABS: FIO2L 3 L; Site Right Radial
[2023-08-09] MEDS: Polyethylene Glycol 3350 17 GM PACKET PO (07:51)
[2023-08-09] MEDS: Enoxaparin 40 MG/0.4 ML SYR SC ×2 (07:51→20:14)
[2023-08-09] MEDS: guaiFENesin/D-METHORPHAN HB 5 ML CUP 10 ML PO ×5 (07:52→23:51)
[2023-08-09] MEDS: Pantoprazole 40 MG TABCR PO (07:52)
[2023-08-09] MEDS: Docusate Sodium 100 MG CAP 200 MG PO (07:52)
[2023-08-09] MEDS: Dexlansoprazole 30 MG CAP 60 MG PO (07:52)
[2023-08-09] MEDS: Spironolactone 25 MG TAB PO (07:52)
[2023-08-09] MEDS: Potassium Chloride Liquid 20 MEQ PKT 40 MEQ PO (07:52)
[2023-08-09] MEDS: Cefpodoxime 200 MG TAB 400 MG PO ×2 (07:53→20:15)
[2023-08-09] MEDS: Furosemide 20 MG/2 ML VIAL IVP ×2 (07:53→15:28)
[2023-08-09] MEDS: Normal Saline Flush 10 ML SYR IVP ×2 (07:53→20:15)
[2023-08-09] MEDS: predniSONE 20 MG TAB 40 MG PO (07:54)
[2023-08-09] MEDS: Methadone Liquid 10 MG/ML 98 MG PO (08:25)
[2023-08-09] MEDS: Albuterol/Ipratropium 3 ML UPD VIAL UPD ×3 (08:56→20:25)
[2023-08-09] MEDS: Tiotropium Bromide-Respimat 10 PUFF INH 2 PUFF IH (08:58)
[2023-08-09] MEDS: Budesonide/Formoterol 160/4.5 6 GM 60 PUFF INH IH ×2 (08:58→20:26)
--- NOTE | 2023-08-09 10:07 | PGE_ITS ---
Assessment and Plan Assessment and plan (1) Obesity hypoventilation syndrome: Status: Suspected (2) Bronchiectasis: Status: Acute Qualifiers: Bronchiectasis type: with acute exacerbation Qualified Code(s): J47.1 - Bronchiectasis with (acute) exacerbation (3) Asthma exacerbation: Status: Acute Qualifiers: Asthma severity: moderate Asthma persistence: unspecified Qualified Code(s): J45.901 - Unspecified asthma with (acute) exacerbation (4) Acute on chronic respiratory failure with hypoxia and hypercapnia: Status: Acute (5) Aspiration into airway: Status: Chronic Assessment and plan: This is a 63 yo admitted for acute on chronic hypercapnic and hypoxic respiratory failure and prior need for ICU. He spirometry and overnight oximetry disqualify her from BiPAP, both with using a OHS and COPD diagnosis. Her BRYSON on her overnight oximetry was only 0.7 which even makes RAQUEL more unlikely. I will see her as an outpatient to continue her work up and try to keep her out of the hospital. Acute on chronic hypoxic and hypercapnic respiratory failure - continue to wean NC as tolerated - recommend BiPAP at night and wean FiO2 as able - IS and mobilization - continue to work with PT OHS - does not qualify for BiPAP - f/u appt for her with me Asthma exacerbation - continue prednisone 40mg for 7 days total, then 30mg for 3 days, 20mg for 3 days, 10mg for 3 days, 5mg for 3 days - continue Symbicort - ok to continue Spiriva - prn nebs Bronchiectasis - VibraPEP Aspiration - proper diet and aspiration precautions - s/p antibiotics Qualifiers: Encounter type: initial encounter Qualified Code(s): T17.908A - Unspecified foreign body in respiratory tract, part unspecified causing other injury, initial encounter General Date Of Service Date of service: 08/09/23 Time of Service: 10:09 Reason for Consult: Respiratory failure Subjective Note Note: Jody is doing well today. Her am ABG was hypercapnic, her overnight oximetry found no overnight hypoxia and her spirometry found an FEV/FVC below 70. Exam Narrative Exam Narrative: Gen: NAD, normal respiratory effort, well-nourished HENT: PERRL, nasal turbinates normal without erythema or inflammation, moist oral mucosa, Mallampati 2, No LAD or JVD Chest: No respiratory distress, normal appearance of chest, clear to auscultation bilaterally, no wheezing or crackles Heart: regular rate and rhythym, no murmurs, rubs or gallops Abdomen: Non-distended, soft, non tender Extremities: No clubbing, 1+ edema, no cyanosis, rashes Neuro: AAOx3 , non focal Psych: cooperative, appropriate mental affect Objective Last Vital Signs Temp 35.9 C L 08/09/23 07:15 Pulse 82 08/09/23 08:56 Resp 17 08/09/23 07:15 BP 125/72 08/09/23 07:15 Pulse Ox 94 08/09/23 08:56 Laboratory Results - last 24 hr 08/09/23 06:30 ABG Sample Site Right Radial ABG pH 7.44 ABG pCO2 55 H ABG pO2 64 L ABG HCO3 37 H ABG Total CO2 33 H ABG O2 Saturation 93 L ABG Base Excess 13 H Oxygen Liter Flow 3 Results Medications Medications: Active Medications Generic Name Dose Route Start Last Admin Trade Name Freq PRN Reason Stop Dose Admin Acetaminophen 650 mg 08/02/23 08:53 08/02/23 20:44 Acetaminophen 325 Mg Tab PO 650 mg Q6H PRN PRN Administration Albuterol Sulfate 2.5 mg 07/31/23 14:31 08/04/23 06:52 Albuterol 2.5 Mg/3 Ml Inh Soln Vial UPD 2.5 mg Q2H PRN PRN Administration Albuterol/Ipratropium 3 ml 07/31/23 16:00 08/09/23 08:56 Albuterol/Ipratropium 3 Ml Upd Vial UPD 3 ml QID EUGENIO Administration Budesonide/Formoterol Fumarate 2 puff 07/31/23 20:00 08/09/23 08:58 Budesonide/Formoterol 160/4.5 6 Gm 60 Puff Inh IH 2 puffs BID EUGENIO Administration Cefpodoxime Proxetil 400 mg 08/08/23 20:00 08/09/23 07:53 Cefpodoxime 200 Mg Tab PO 08/18/23 19:59 400 mg BID EUGENIO Administration Device 1 each 07/31/23 14:31 Inhaler, Assist Device DIRECTED [facility] Dexlansoprazole 60 mg 08/04/23 22:00 08/09/23 07:52 Dexlansoprazole 30 Mg Cap PO 60 mg DAILY@0730 EUGENIO Administration Diltiazem HCl 30 mg 07/31/23 14:00 08/09/23 06:11 Diltiazem 30 Mg Tab PO 30 mg Q8H EUGENIO Administration Docusate Sodium 200 mg 08/01/23 08:30 08/09/23 07:52 Docusate Sodium 100 Mg Cap PO 200 mg DAILY EUGENIO Administration Enoxaparin Sodium 40 mg 08/02/23 20:00 08/09/23 07:51 Enoxaparin 40 Mg/0.4 Ml Syr SC 40 mg BID EUGENIO Administration Furosemide 20 mg 08/07/23 16:00 08/09/23 07:53 Furosemide 20 Mg/2 Ml Vial IVP 20 mg BID@0800,1600 EUGENIO Administration Guaifenesin/Dextromethorphan 10 ml 08/04/23 00:00 08/09/23 07:52 Guaifenesin/D-Methorphan Hb 5 Ml Cup PO 10 ml Q4H EUGENIO Administration Sodium Chloride 500 mls @ 0 mls/hr 07/31/23 17:50 08/08/23 14:47 Saline 500ml Bag IV 0 mls/hr PRN PRN Infusion As Directed IV Miscellaneous Supplies 1 each 07/31/23 09:15 Iv Access IV DIRECTED EUGENIO Levothyroxine Sodium 200 mcg 08/02/23 06:00 08/09/23 06:11 Levothyroxine 100 Mcg Tab PO 200 mcg DAILY@0600 EUGENIO Administration Lorazepam 1 mg 07/31/23 14:31 08/04/23 00:17 Lorazepam 1 Mg Tab PO 1 mg Q6H PRN PRN Administration Methadone HCl 98 mg 07/31/23 15:00 08/09/23 08:25 Methadone Liquid 10 Mg/Ml PO 98 mg DAILY EUGENIO Administration Mirtazapine 45 mg 07/31/23 22:00 08/09/23 00:35 Mirtazapine 15 Mg Tab PO 45 mg HS EUGENIO Administration Mirtazapine 15 mg 07/31/23 22:00 08/09/23 00:35 Mirtazapine 15 Mg Tab PO 15 mg HS EUGENIO Administration Pantoprazole Sodium 40 mg 08/01/23 07:30 08/09/23 07:52 Pantoprazole 40 Mg Tabcr PO 40 mg DAILY@0730 EUGENIO Administration Polyethylene Glycol 17 gm 08/03/23 08:30 08/09/23 07:51 Polyethylene Glycol 3350 17 Gm Packet PO 17 gm DAILY EUGENIO Administration Polyethylene Glycol 17 gm 08/02/23 14:29 Polyethylene Glycol 3350 17 Gm Packet PO BID PRN PRN Potassium Chloride 40 meq 08/02/23 08:30 08/09/23 07:52 Potassium Chloride Liquid 20 Meq Pkt PO 40 meq DAILY EUGENIO Administration Prednisone 40 mg 08/03/23 08:30 08/09/23 07:54 Prednisone 20 Mg Tab PO 40 mg DAILY EUGENIO Administration Sennosides 1 tab 07/31/23 22:00 08/08/23 20:47 Senna Tab PO 1 tab HS EUGENIO Administration Simvastatin 10 mg 07/31/23 22:00 08/08/23 20:47 Simvastatin 10 Mg Tab PO 10 mg HS EUGENIO Administration Sodium Chloride 0 ml 07/31/23 09:07 08/08/23 16:37 Normal Saline Flush 10 Ml Syr IVP 10 ml PRN PRN Administration Sodium Chloride 0 ml 07/31/23 20:00 08/09/23 07:53 Normal Saline Flush 10 Ml Syr IVP 20 ml BID EUGENIO Administration Sodium Chloride 0 ml 07/31/23 09:07 Normal Saline 10 Ml Vial IJ DIRECTED PRN Spironolactone 25 mg 08/01/23 08:30 08/09/23 07:52 Spironolactone 25 Mg Tab PO 25 mg DAILY EUGENIO Administration Tiotropium [place] 2 puff 08/01/23 08:30 08/09/23 08:58 Tiotropium [place]-Respimat 10 Puff Inh IH 2 puff DAILY EUGENIO Administration Zolpidem Tartrate 5 mg 07/31/23 22:00 08/09/23 00:35 Zolpidem 5 Mg Tab PO 5 mg HS EUGENIO Administration Allergies No Known Allergies Allergy (Unverified 07/31/23 09:55) Labs 08/07/23 05:32 08/08/23 05:55 Labs: 08/06/23 08:33 Sputum Sputum Culture - Final Stenotrophomonas Maltophilia Normal Marjorie 08/06/23 08:33 Sputum Gram Stain - Final 07/31/23 09:59 Blood Blood Culture - Final NO GROWTH 120 HOURS 07/31/23 09:37 Blood Blood Culture - Final NO GROWTH 120 HOURS Laboratory Tests Range/Units 07/31/23 07/31/23 07/31/23 09:34 09:37 09:46 WBC (4.4-10.8) 10^3/uL 5.97 RBC (3.93-5.22) 10^6/uL 4.62 Hgb (11.2-15.7) g/dL 12.8 Hct (36.0-46.0) % 41.7 MCV (80-95) fL 90 MCH (27.0-33.0) pg 27.7 MCHC (32.0-36.0) % 30.7 L RDW (11.7-14.6) % 13.8 Plt Count (130-400) 10^3/uL 262 MPV (8.0-11.0) fL 9.1 Immature Gran % 0.0 Neutrophils % 55.5 Lymphocytes % 29.8 Monocytes % 6.4 Eosinophils % 7.5 Basophils % 0.8 Nucleated RBC % (0.0-0.3) % 0.0 Absolute Neutrophils (1.2-6.7) 10^3/uL 3.31 Absolute Lymphocytes (1.2-3.4) 10^3/uL 1.78 Absolute Monocytes (0.1-0.8) 10^3/uL 0.38 Absolute Eosinophils (0.0-0.7) 10^3/uL 0.45 Absolute Basophils (0.0-0.2) 10^3/uL 0.05 PT (9.1-11.1) sec 10.9 INR (0.9-1.1) 1.1 APTT (23.6-32.8) sec 28.1 ABG Sample Site ABG pH (7.35-7.45) ABG pCO2 (35-45) mmHg ABG pO2 (80-105) mmHg ABG HCO3 (22-26) mmol/L ABG Total CO2 (23-27) mmol/L ABG O2 Saturation (95-98) % ABG Base Excess (-2-3) mmol/L VBG pH (7.31-7.41) 7.30 L VBG pCO2 (41-51) mmHg 69 H* VBG pO2 mmHg 44 VBG HCO3 (23-28) mmol/L 34 H VBG Total CO2 (24-29) mmol/L 32 H VBG O2 Saturation % 75 VBG Base Excess (-2-3) mmol/L 7 H Oxygen Liter Flow L Sodium (136-145) mmol/L 143 Potassium (3.5-5.1) mmol/L 3.7 Chloride (98-107) mmol/L 102 Carbon Dioxide (21.0-32.0) mmol/L 33.8 H Anion Gap (3-11) mmol/L 7.2 BUN (7-18) mg/dL 5 L Creatinine (0.55-1.02) mg/dL 0.9 Est GFR (CKD-EPI 2020) (mL/min/1.73m2) 70.95 Glucose (74-106) mg/dL 101 Calcium (8.5-10.1) mg/dL 9.2 Magnesium (1.8-2.4) mg/dL 2.1 Total Bilirubin (0.2-1.0) mg/dL 0.6 AST (15-37) U/L 22 ALT (14-59) U/L 24 Alkaline Phosphatase (46-116) U/L 98 Troponin I (< or =60) ng/L < 50 NT-Pro-B Natriuret Pep (<300) pg/mL 38 Total Protein (6.4-8.2) g/dL 7.8 Albumin (3.4-5.0) g/dL 4.0 Procalcitonin ng/mL < 0.1 TSH (0.36-3.74) uIU/mL 0.56 COVID-19 Source Nasal/Nares SARS-CoV-2 (PCR) (Negative) Negative Range/Units 07/31/23 08/01/23 08/02/23 12:53 05:34 05:49 WBC (4.4-10.8) 10^3/uL 7.77 7.53 RBC (3.93-5.22) 10^6/uL 4.10 4.42 Hgb (11.2-15.7) g/dL 11.3 12.1 Hct (36.0-46.0) % 36.3 39.4 MCV (80-95) fL 89 89 MCH (27.0-33.0) pg 27.6 27.4 MCHC (32.0-36.0) % 31.1 L 30.7 L RDW (11.7-14.6) % 13.9 14.3 Plt Count (130-400) 10^3/uL 234 239 MPV (8.0-11.0) fL 9.1 9.7 Immature Gran % 0.4 Neutrophils % 81.3 Lymphocytes % 12.0 Monocytes % 6.2 Eosinophils % 0.0 Basophils % 0.1 Nucleated RBC % (0.0-0.3) % 0.0 Absolute Neutrophils (1.2-6.7) 10^3/uL 6.32 Absolute Lymphocytes (1.2-3.4) 10^3/uL 0.93 L Absolute Monocytes (0.1-0.8) 10^3/uL 0.48 Absolute Eosinophils (0.0-0.7) 10^3/uL 0.00 Absolute Basophils (0.0-0.2) 10^3/uL 0.01 PT (9.1-11.1) sec INR (0.9-1.1) APTT (23.6-32.8) sec ABG Sample Site ABG pH (7.35-7.45) ABG pCO2 (35-45) mmHg ABG pO2 (80-105) mmHg ABG HCO3 (22-26) mmol/L ABG Total CO2 (23-27) mmol/L ABG O2 Saturation (95-98) % ABG Base Excess (-2-3) mmol/L VBG pH (7.31-7.41) VBG pCO2 (41-51) mmHg VBG pO2 mmHg VBG HCO3 (23-28) mmol/L VBG Total CO2 (24-29) mmol/L VBG O2 Saturation % VBG Base Excess (-2-3) mmol/L Oxygen Liter Flow L Sodium (136-145) mmol/L 143 146 H Potassium (3.5-5.1) mmol/L 3.6 3.1 L Chloride (98-107) mmol/L 102 103 Carbon Dioxide (21.0-32.0) mmol/L 34.2 H 37.9 H Anion Gap (3-11) mmol/L 6.8 5.1 BUN (7-18) mg/dL 12 9 Creatinine (0.55-1.02) mg/dL 0.9 1.0 Est GFR (CKD-EPI 2020) (mL/min/1.73m2) 70.95 62.52 Glucose (74-106) mg/dL 150 H 82 Calcium (8.5-10.1) mg/dL 8.8 9.1 Magnesium (1.8-2.4) mg/dL Total Bilirubin (0.2-1.0) mg/dL AST (15-37) U/L ALT (14-59) U/L Alkaline Phosphatase (46-116) U/L Troponin I (< or =60) ng/L < 50 NT-Pro-B Natriuret Pep (<300) pg/mL Total Protein (6.4-8.2) g/dL Albumin (3.4-5.0) g/dL Procalcitonin ng/mL TSH (0.36-3.74) uIU/mL COVID-19 Source SARS-CoV-2 (PCR) (Negative) Range/Units 08/03/23 08/03/23 08/04/23 05:25 10:18 05:38 WBC (4.4-10.8) 10^3/uL 8.95 8.72 RBC (3.93-5.22) 10^6/uL 4.59 4.22 Hgb (11.2-15.7) g/dL 12.5 11.7 Hct (36.0-46.0) % 40.7 37.8 MCV (80-95) fL 89 90 MCH (27.0-33.0) pg 27.2 27.7 MCHC (32.0-36.0) % 30.7 L 31.0 L RDW (11.7-14.6) % 14.2 14.6 Plt Count (130-400) 10^3/uL 252 225 MPV (8.0-11.0) fL 9.8 9.5 Immature Gran % 0.3 0.5 Neutrophils % 85.7 66.1 Lymphocytes % 9.6 25.7 Monocytes % 4.4 7.5 Eosinophils % 0.0 0.1 Basophils % 0.0 0.1 Nucleated RBC % (0.0-0.3) % 0.0 0.0 Absolute Neutrophils (1.2-6.7) 10^3/uL 7.67 H 5.77 Absolute Lymphocytes (1.2-3.4) 10^3/uL 0.86 L 2.24 Absolute Monocytes (0.1-0.8) 10^3/uL 0.39 0.65 Absolute Eosinophils (0.0-0.7) 10^3/uL 0.00 0.01 Absolute Basophils (0.0-0.2) 10^3/uL 0.00 0.01 PT (9.1-11.1) sec INR (0.9-1.1) APTT (23.6-32.8) sec ABG Sample Site ABG pH (7.35-7.45) ABG pCO2 (35-45) mmHg ABG pO2 (80-105) mmHg ABG HCO3 (22-26) mmol/L ABG Total CO2 (23-27) mmol/L ABG O2 Saturation (95-98) % ABG Base Excess (-2-3) mmol/L VBG pH (7.31-7.41) 7.45 H VBG pCO2 (41-51) mmHg 52 H VBG pO2 mmHg 43 VBG HCO3 (23-28) mmol/L 36 H VBG Total CO2 (24-29) mmol/L 32 H VBG O2 Saturation % 78 VBG Base Excess (-2-3) mmol/L 12 H Oxygen Liter Flow L Sodium (136-145) mmol/L 144 144 Potassium (3.5-5.1) mmol/L 3.6 3.2 L Chloride (98-107) mmol/L 101 103 Carbon Dioxide (21.0-32.0) mmol/L 33.8 H 34.4 H Anion Gap (3-11) mmol/L 9.2 6.6 BUN (7-18) mg/dL 11 13 Creatinine (0.55-1.02) mg/dL 1.0 1.0 Est GFR (CKD-EPI 2020) (mL/min/1.73m2) 62.52 62.52 Glucose (74-106) mg/dL 110 H 104 Calcium (8.5-10.1) mg/dL 9.7 9.0 Magnesium (1.8-2.4) mg/dL 2.1 2.2 Total Bilirubin (0.2-1.0) mg/dL AST (15-37) U/L ALT (14-59) U/L Alkaline Phosphatase (46-116) U/L Troponin I (< or =60) ng/L NT-Pro-B Natriuret Pep (<300) pg/mL Total Protein (6.4-8.2) g/dL Albumin (3.4-5.0) g/dL Procalcitonin ng/mL TSH (0.36-3.74) uIU/mL COVID-19 Source SARS-CoV-2 (PCR) (Negative) Range/Units 08/04/23 08/05/23 08/06/23 07:10 05:35 05:20 WBC (4.4-10.8) 10^3/uL 7.81 7.55 RBC (3.93-5.22) 10^6/uL 4.22 4.20 Hgb (11.2-15.7) g/dL 11.6 11.7 Hct (36.0-46.0) % 37.8 37.9 MCV (80-95) fL 90 90 MCH (27.0-33.0) pg 27.5 27.9 MCHC (32.0-36.0) % 30.7 L 30.9 L RDW (11.7-14.6) % 14.6 14.5 Plt Count (130-400) 10^3/uL 211 201 MPV (8.0-11.0) fL 9.4 9.4 Immature Gran % 0.3 0.3 Neutrophils % 54.6 58.2 Lymphocytes % 37.1 32.8 Monocytes % 7.4 7.9 Eosinophils % 0.5 0.7 Basophils % 0.1 0.1 Nucleated RBC % (0.0-0.3) % 0.0 0.0 Absolute Neutrophils (1.2-6.7) 10^3/uL 4.26 4.39 Absolute Lymphocytes (1.2-3.4) 10^3/uL 2.90 2.48 Absolute Monocytes (0.1-0.8) 10^3/uL 0.58 0.60 Absolute Eosinophils (0.0-0.7) 10^3/uL 0.04 0.05 Absolute Basophils (0.0-0.2) 10^3/uL 0.01 0.01 PT (9.1-11.1) sec INR (0.9-1.1) APTT (23.6-32.8) sec ABG Sample Site ABG pH (7.35-7.45) ABG pCO2 (35-45) mmHg ABG pO2 (80-105) mmHg ABG HCO3 (22-26) mmol/L ABG Total CO2 (23-27) mmol/L ABG O2 Saturation (95-98) % ABG Base Excess (-2-3) mmol/L VBG pH (7.31-7.41) 7.42 H VBG pCO2 (41-51) mmHg 59 H VBG pO2 mmHg 40 VBG HCO3 (23-28) mmol/L 38 H VBG Total CO2 (24-29) mmol/L 35 H VBG O2 Saturation % 71 VBG Base Excess (-2-3) mmol/L 13 H Oxygen Liter Flow L Sodium (136-145) mmol/L 144 143 Potassium (3.5-5.1) mmol/L 3.6 4.1 Chloride (98-107) mmol/L 102 102 Carbon Dioxide (21.0-32.0) mmol/L 34.8 H 33.7 H Anion Gap (3-11) mmol/L 7.2 7.3 BUN (7-18) mg/dL 14 15 Creatinine (0.55-1.02) mg/dL 1.1 H 1.1 H Est GFR (CKD-EPI 2020) (mL/min/1.73m2) 55.76 55.76 Glucose (74-106) mg/dL 83 95 Calcium (8.5-10.1) mg/dL 8.9 9.0 Magnesium (1.8-2.4) mg/dL 2.3 2.4 Total Bilirubin (0.2-1.0) mg/dL AST (15-37) U/L ALT (14-59) U/L Alkaline Phosphatase (46-116) U/L Troponin I (< or =60) ng/L NT-Pro-B Natriuret Pep (<300) pg/mL Total Protein (6.4-8.2) g/dL Albumin (3.4-5.0) g/dL Procalcitonin ng/mL < 0.1 TSH (0.36-3.74) uIU/mL COVID-19 Source SARS-CoV-2 (PCR) (Negative) Range/Units 08/07/23 08/08/23 08/09/23 05:32 05:55 06:30 WBC (4.4-10.8) 10^3/uL 8.22 RBC (3.93-5.22) 10^6/uL 4.34 Hgb (11.2-15.7) g/dL 11.7 Hct (36.0-46.0) % 38.4 MCV (80-95) fL 89 MCH (27.0-33.0) pg 27.0 MCHC (32.0-36.0) % 30.5 L RDW (11.7-14.6) % 14.3 Plt Count (130-400) 10^3/uL 221 MPV (8.0-11.0) fL 9.5 Immature Gran % 0.2 Neutrophils % 59.1 Lymphocytes % 32.5 Monocytes % 7.4 Eosinophils % 0.7 Basophils % 0.1 Nucleated RBC % (0.0-0.3) % 0.0 Absolute Neutrophils (1.2-6.7) 10^3/uL 4.85 Absolute Lymphocytes (1.2-3.4) 10^3/uL 2.67 Absolute Monocytes (0.1-0.8) 10^3/uL 0.61 Absolute Eosinophils (0.0-0.7) 10^3/uL 0.06 Absolute Basophils (0.0-0.2) 10^3/uL 0.01 PT (9.1-11.1) sec INR (0.9-1.1) APTT (23.6-32.8) sec ABG Sample Site Right Radial ABG pH (7.35-7.45) 7.44 ABG pCO2 (35-45) mmHg 55 H ABG pO2 (80-105) mmHg 64 L ABG HCO3 (22-26) mmol/L 37 H ABG Total CO2 (23-27) mmol/L 33 H ABG O2 Saturation (95-98) % 93 L ABG Base Excess (-2-3) mmol/L 13 H VBG pH (7.31-7.41) VBG pCO2 (41-51) mmHg VBG pO2 mmHg VBG HCO3 (23-28) mmol/L VBG Total CO2 (24-29) mmol/L VBG O2 Saturation % VBG Base Excess (-2-3) mmol/L Oxygen Liter Flow L 3 Sodium (136-145) mmol/L 141 139 Potassium (3.5-5.1) mmol/L 3.5 3.4 L Chloride (98-107) mmol/L 100 97 L Carbon Dioxide (21.0-32.0) mmol/L 35.5 H 36.5 H Anion Gap (3-11) mmol/L 5.5 5.5 BUN (7-18) mg/dL 15 16 Creatinine (0.55-1.02) mg/dL 1.0 1.2 H Est GFR (CKD-EPI 2020) (mL/min/1.73m2) 62.52 50.23 Glucose (74-106) mg/dL 85 101 Calcium (8.5-10.1) mg/dL 9.5 9.6 Magnesium (1.8-2.4) mg/dL 2.3 2.3 Total Bilirubin (0.2-1.0) mg/dL AST (15-37) U/L ALT (14-59) U/L Alkaline Phosphatase (46-116) U/L Troponin I (< or =60) ng/L NT-Pro-B Natriuret Pep (<300) pg/mL Total Protein (6.4-8.2) g/dL Albumin (3.4-5.0) g/dL Procalcitonin ng/mL < 0.1 TSH (0.36-3.74) uIU/mL COVID-19 Source SARS-CoV-2 (PCR) (Negative)
--- NOTE | 2023-08-09 10:20 | PDOC.CMPRO ---
Date of service: 08/09/23 Time of Service: 10:20 Care Management Progress Note Progress Note Text Progress Note Text: S/O: Laurence was sitting up in her chair, doing a crossword puzzle when CM met with her. She stated that she is doing ok today, and that she walked with RT with her O2, and reported that her O2 saturation decreased, and the supplemental O2 had to be increased. Per report, she completed an overnight oximetry, and did not qualify for Bipap. Pulmonology will continue to follow, and will see her outpatient. Per MD, she is not yet ready for discharge. CM will continue to follow. A: 63 year old female admitted to [facility] 07/31/23 for COPD exacerbation, hypoxic respiratory failure P: Frieda will return home when ready per MD, anticipate she will transport via [facility], coordinated by CM. She will have outpatient follow up with [facility] for E[facility]. Her PCP is at [facility] [place], and she utilizes [facility] for transport. Frieda has weekly [facility] appointments on Fridays. Per MD, RT is working to coordinate BIPAP for home use, Frieda utilizes [facility] for home O2 at baseline already. CM following. SDOH(Care Management) Screening Will the Patient Participate in the Screening?: Yes Do you worry about having a steady place to live?: yes Problems where you live: pests such as bugs, ants or mice and mold In the past 12 months, have you had to go without electric, gas, oil or water in your home?: no Have you or anyone in your house had to go without enough food to eat?: no Has lack of transportation kept you from medical appointments or from doing things needed for daily living?: yes Has anyone in your support network made you feel unsafe for any reason?: no Social Determinants of Health Comments(SDOH Details): Entry way, on first 3 steps the drain gutter leaks causing ice buildup on steps. Landlord sent someone to fix it--only partial fix was done per patient. Health Related Social Needs Health related social needs: inadequate housing(Z59.1), housing instability, housed, with risk of homelessness(Z59.811) and transportation insecurity(Z59.82)
--- NOTE | 2023-08-09 11:11 | W.NOCTURNAL ---
Date of service: 08/08/23 Time of Service: 21:43 Nocturnal Oximetry Note: Overnight Oximetry Amount of time analyzed: 8 hours 33 minutes on 3LPM O2 Number of minutes under 88%: 0 BRYSON: 0.7 Appearance of oxygen saturation pattern:Normal Recommendation: no need for addition nocturnal O2, normal BRYSON, low suspicion of RAQUEL Janett Pitts MD Pulmonary & Critical Care Medicine
--- NOTE | 2023-08-09 12:06 | W.PFT ---
Date of service: 08/09/23 Time of Service: 09:21 Pulmonary Function Test Result Indications: [facility] BiPAP qualification Interpretation Spirometry: There is moderate airflow limitation. Impression Moderate obstruction Clinical Correlation therefore is recommended.
--- NOTE | 2023-08-09 13:01 | PTTR_ITS ---
Date of service: 08/09/23 Time of Service: 10:25 PT Notes Visit Reasons: COPD Exacerbation,Hypoxic resp failure Inpatient Physical Therapy Treatment Note [facility] Date: 08/09/23 PRECAUTIONS: Fall, standard, activity as tolerated. SUBJECTIVE: Patient reports feeling good, down to 3L/m supplemental O2. OBJECTIVE: Patient sitting EOB, working at computer on wheeled bedside table. ? PAIN: [] VITALS: ? Pre-Treatment: SaO2 85%, HR 91 bpm on 3L ? Post-Treatment: 91%, 86 bpm on 3L for 3+ minutes after return to room? ? ? BED MOBILITY/TRANSFERS? Sit-stand: SBA ? Stand-sit: SBA? Therapeutic Exercises ([id number]): Direct one-on-one instruction in therapeutic exercises to develop strength, endurance, range of motion and flexibility. Ambulation ? Assistive Device: FWW ? Weight bearing: full Assist: SBA ? Distance:? 900 feet ? Deviation: Patient desats to 84% within 25 feet on 3L/m, this clinician increases to 4L and then 6L to maintain Sao2 between 87-89%. Wide MANPREET, reduced arm swing. ? Provided skilled instruction in proper exercise performance Provided skilled manual cues to facilitate proper muscle recruitment and/or form. ASSESSMENT:? Patient requires 6L/m supplemental O2 in order to maintain SaO2 87- 88% with ambulation this morning. Patient reports that she expects to improve as the day goes on, will use her toys (inspirometer and acapella) and cough up some of the gunk in her lungs and will be breathing better by the afternoon. PLAN: Continue treatment per plan of care until patient is medically cleared for discharge. Recommend continued skilled therapy at home to maximize functional recovery. TREATMENT CODE/TIME: 28 minutes beginning at 10:25
[2023-08-09] MEDS: Doxycycline Hyclate 100 MG CAP PO ×2 (14:09→20:15)
--- NOTE | 2023-08-09 16:31 | CHAPLAIN ---
Frieda had moved out of the ICU from when I visited her last. She said she is feeling better. It looked like she was keeping busy with word puzzle book, reading books and alevism material. She did not seem interested in a longer conversation with me.
--- NOTE | 2023-08-09 17:40 | W.PM.PROGNOT ---
Date of Service Date of service: 08/09/23 Time of Service: 17:40 Assessment and Plan Assessment and plan (1) Acute on chronic respiratory failure with hypoxia and hypercapnia: Status: Acute Assessment and plan: Multifactorial including chronic aspiration from her GERD, exacerbation of her bronchiectasis and asthma. Her overnight pulse oximetry study showed no desaturations below 88% while on 3 L/min per nasal cannula. BRYSON of 0.7 which was normal suggestive of low suspicion for RAQUEL. PFTs with moderate airflow limitation. Continue prednisone taper along with maintenance LABA/LAMA/ICS along with scheduled DuoNeb treatments. Use plain nasal cannula during the day and BiPAP at night. However she does not qualified for home BiPAP at this time. I suggest the patient seek a formal polysomnogram to be absolutely certain that she does not have sleep apnea since she will not qualify for BiPAP which is COPD or asthma alone. Continue cefpodoxime and doxycycline. (2) Asthma exacerbation: Status: Acute Qualifiers: Asthma severity: moderate Asthma persistence: unspecified Qualified Code(s): J45.901 - Unspecified asthma with (acute) exacerbation (3) Aspiration into airway: Status: Chronic Qualifiers: Encounter type: initial encounter Qualified Code(s): T17.908A - Unspecified foreign body in respiratory tract, part unspecified causing other injury, initial encounter (4) Bronchiectasis: Status: Acute Qualifiers: Bronchiectasis type: with acute exacerbation Qualified Code(s): J47.1 - Bronchiectasis with (acute) exacerbation (5) Obesity hypoventilation syndrome: Status: Suspected Subjective Subjective Interval history since last seen: Laurence is sitting up in her chair no acute distress. Denies any acute dyspnea. I explained to her that her overnight pulse oximetry study and PFTs did not qualify her for home BiPAP unit. Told her that we would plan for discharge tomorrow. She would have been discharged today but physical therapy reported that she required up to 6 L of oxygen with ambulation. Tomorrow we will get a formal exercise oximetry study. At rest she is only requiring 3 L/min per nasal cannula. Exam Narrative Exam Narrative: Middle-aged white female sitting up in a chair alert and oriented x 3 Neck supple no accessory respiratory muscle use Lungs diffuse coarse expiratory wheezes no rales Heart is regular rate and rhythm Extremities trace of pedal edema Objective Last Vital Signs Temp 36.5 C 08/09/23 15:55 Pulse 80 08/09/23 15:55 Resp 18 08/09/23 15:55 BP 112/66 08/09/23 15:55 Pulse Ox 90 L 08/09/23 15:55 Laboratory Results - last 24 hr 08/09/23 06:30 ABG Sample Site Right Radial ABG pH 7.44 ABG pCO2 55 H ABG pO2 64 L ABG HCO3 37 H ABG Total CO2 33 H ABG O2 Saturation 93 L ABG Base Excess 13 H Oxygen Liter Flow 3 Time Spent with Patient Time Spent with Patient: 25-34 minutes Time was spent: preparing to see the patient(eg.review tests), ordering medications,tests, procedures, referring, communicating with other health director of career services, indepentently interpreting results, counseling the patient and care coordination
[2023-08-09] MEDS: LORazepam 1 MG TAB PO (20:47)
[2023-08-09] MEDS: Senna TAB 1 TAB PO (21:29)
[2023-08-09] MEDS: Simvastatin 10 MG TAB PO (21:30)
[2023-08-10] VITALS (11 sets, daily range): BP systolic 119–143; BP diastolic 76–78; PULSE 68–126; RESP 5–22; TEMP 35.1–36.7; O2SAT 87–95
[2023-08-10] MEDS: dilTIAZem 30 MG TAB PO ×2 (05:37→13:51)
[2023-08-10] MEDS: Levothyroxine 100 MCG TAB 200 MCG PO (05:37)
[2023-08-10 07:16] LABS: Abs Immature Grans 0.06 10^3/uL (0.0-0.06); Absolute Basophil Count 0.02 10^3/uL (0.0-0.2); Absolute Eosinophil Count 0.04 10^3/uL (0.0-0.7); Absolute Neutrophil Count 5.23 10^3/uL (1.2-6.7); Basophils % 0.2; Eosinophils % 0.4; HCT 40.8 % (36.0-46.0); HGB 12.6 g/dL (11.2-15.7); Immature Grans % 0.6; Lymphocytes % 37.6; MCH 27.2 pg (27.0-33.0); MCHC 30.9 % (32.0-36.0); MCV 88 fL (80-95); MPV 9.4 fL (8.0-11.0); Monocytes % 8.1; Neutrophils % 53.1; Platelet Count 246 10^3/uL (130-400); RBC 4.63 10^6/uL (3.93-5.22); RDW 14.2 % (11.7-14.6); RDW-SD 45.2 fL; WBC 9.85 10^3/uL (4.4-10.8)
[2023-08-10] MEDS: guaiFENesin/D-METHORPHAN HB 5 ML CUP 10 ML PO ×3 (07:32→15:37)
[2023-08-10] MEDS: Enoxaparin 40 MG/0.4 ML SYR SC (07:33)
[2023-08-10] MEDS: Normal Saline Flush 10 ML SYR IVP (07:33)
[2023-08-10] MEDS: Potassium Chloride Liquid 20 MEQ PKT 40 MEQ PO (07:33)
[2023-08-10] MEDS: Furosemide 20 MG/2 ML VIAL IVP ×2 (07:33→15:37)
[2023-08-10] MEDS: Doxycycline Hyclate 100 MG CAP PO (07:35)
[2023-08-10] MEDS: Pantoprazole 40 MG TABCR PO (07:35)
[2023-08-10] MEDS: Cefpodoxime 200 MG TAB 400 MG PO (07:35)
[2023-08-10] MEDS: Dexlansoprazole 30 MG CAP 60 MG PO (07:36)
[2023-08-10] MEDS: Spironolactone 25 MG TAB PO (07:37)
[2023-08-10] MEDS: Docusate Sodium 100 MG CAP 200 MG PO (07:37)
[2023-08-10] MEDS: Methadone Liquid 10 MG/ML 98 MG PO (09:01)
[2023-08-10] MEDS: Tiotropium Bromide-Respimat 10 PUFF INH 2 PUFF IH (09:15)
[2023-08-10] MEDS: Albuterol/Ipratropium 3 ML UPD VIAL UPD ×3 (09:15→16:13)
[2023-08-10] MEDS: Budesonide/Formoterol 160/4.5 6 GM 60 PUFF INH IH (09:15)
[2023-08-10] MEDS: predniSONE 20 MG TAB 30 MG PO (09:40)
--- NOTE | 2023-08-10 16:27 | W.PM.DS.N ---
Date of service: 08/10/23 Time of Service: 16:27 DS: Diagnosis Discharge Diagnosis (1) Acute on chronic respiratory failure with hypoxia and hypercapnia: Status: Acute (2) Asthma exacerbation: Status: Acute (3) Aspiration into airway: Status: Chronic (4) Bronchiectasis: Status: Acute (5) Obesity hypoventilation syndrome: Status: Suspected Discharge Plan Disposition Patient Disposition: Home Condition: Improving Discharge Details Reason For Visit: COPD Exacerbation,Hypoxic resp failure Admit Date/Time: 07/31/23 11:31 Admit Provider: Clovis Lama Attending Provider: Clovis Lama Primary Care Provider: Andrzej Kimbrough [facility] Course Hospital Course: Patient is a 63-year-old female who was admitted to the intensive care unit for acute on chronic hypercapnic and hypoxic respiratory failure. She has a history of asthma and probably overlap with COPD. As well as obesity hypoventilation syndrome and suspected obstructive sleep apnea. Patient has a history of GERD and recurrent aspiration. Patient was initially admitted to the medical/surgical floor after she was weaned off BiPAP to high flow nasal cannula but then overnight became significantly dyspneic and required resumption of BiPAP and was transferred to the intensive care unit. She was empirically treated with Zosyn and put on IV Solu-Medrol aerosolized bronchodilators. Patient has a notable history of recurrent aspiration and has had previous hospitalizations in August 2022 and May 2023 and after her last hospitalization was referred to [facility] provider Dr. Tessie Raya who agreed to set the patient up for follow-up in the GI clinic and perform an EGD. This has yet to be done. With antibiotics and steroids and bronchodilators the patient was able to be weaned from BiPAP to nasal cannula and was weaned down from high flow nasal cannula to a regular nasal cannula. She continues to receive BiPAP at night. Pulmonary consultation was obtained with Dr. Janett Mcdermott on 08/02/2023 see her note for details but in summary she felt that she has acute on chronic hypercapnic and hypoxemic respiratory failure primarily from OHS causing her hypercapnia but suspected that she may have RAQUEL in addition to her obstructive airway disease and chronic aspiration to her airway. She doubted that she truly has COPD given her minimal smoking history but does feel that she likely has asthma and chronic aspiration issues. Radiologically she had evidence of focal right lower lobe and lingular bronchiectasis. Recommendations was for steroid taper for her asthma and continue the use of Symbicort and as needed bronchodilator nebulizers. She recommended use of Vibra-pep for bronchiectasis as well as use of incentive spirometry. She recommended continue BiPAP at night and wean to nasal cannula as tolerated. She also recommend nocturnal pulse oximetry study to evaluate for obstructive sleep apnea. That was performed on 08/09/2023 and the appearance of her oxygen saturation pattern was normal with no episodes of desaturation below 88%. Her BRYSON score was 0.7. This is consistent with low suspicion for RAQUEL. Pulmonary function test bedside FEV1 FVC was performed on 08/09/2023 and was consistent with moderate airflow obstruction. Patient completed a full course of antibiotics which included 8 full days of IV Zosyn, followed by 2 and half more days of oral cefpodoxime, and a couple of days of doxycycline. Patient was placed on tapering dose of prednisone and completed 8 days of oral prednisone at 40 mg daily and then was downgraded to 30 mg daily from which she will taper every 3 days until she is down to 5 mg/day and then to be tapered off. Patient is a follow-up with Dr. Pitts within a month for follow-up of her asthma and bronchiectasis and OHS. Patient is to follow-up with her primary care provider within the next week. Patient's diuretics were adjusted for her peripheral edema she was placed on spironolactone in addition to her furosemide. Imaging during this hospitalization included admission chest x-ray venous duplex scan of her legs and a follow-up chest x-ray. Venous duplex was negative for DVT and chest x-ray showed no evidence for pneumonia. Home Meds and New Rx's Prescriptions: New spironolactone 25 mg tablet 25 mg PO DAILY Qty: 30 0RF prednisone 10 mg tablet 10 mg PO DIRECTED Qty: 20 0RF Rx Instructions: 30 mg/dx3d, 20 mg/dx3d, 10 mg/dx3d, 5 mg/dx3d Continued methadone 10 MG/5 ML solution 98 mg PO DAILY mirtazapine 45 MG tablet 45 mg PO DAILY levothyroxine 200 MCG tablet 200 mcg PO DAILY zolpidem 5 MG tablet 5 mg PO HS docusate sodium [Dulcolax Stool Softener (dss)] 100 MG capsule 200 mg PO DAILY Hold Instructions: Pt Stopped/Never Started Patient Comments: has not taken in the past week. simvastatin 10 MG tablet 10 mg PO DAILY dexlansoprazole [Dexilant] 60 mg Capsule,Biphase Delayed Releas 1 tab PO DAILY diltiazem HCl 30 mg tablet 30 mg PO Q8H Patient Comments: TAKE ONE TABLET BY MOUTH EVERY 8 HOURS spironolactone 25 mg Tablet 25 mg PO DAILY Qty: 30 0RF sennosides [Senokot] 8.6 mg Tablet 8.6 mg PO HS Qty: 30 0RF tiotropium bromide [Spiriva with HandiHaler] 18 mcg capsule, w/inhalation device 1 cap inhalation DAILY Qty: 30 0RF Rx Instructions: puncture 1 cap using device; one dose = 2 inhalations lorazepam 1 MG tablet 1 mg PO Q6H PRN PRNQty: 14 0RF budesonide-formoterol [Symbicort] 160-4.5 mcg/actuation Hfa Aerosol Inhaler 2 puff inhalation BID Qty: 0 0RF lorazepam 0.5 mg tablet 0.5 mg PO DAILY PRN Patient Comments: TAKE ONE TABLET BY MOUTH EVERY DAY NEEDED FOR ANXIETY mirtazapine 15 mg tablet,disintegrating 15 mg PO HS Patient Comments: DISSOLVE ONE TABLET BY MOUTH AT BEDTIME WITH 45MG furosemide [Lasix] 20 mg tablet 20 mg PO BID Qty: 60 0RF Changed potassium chloride 20 mEq/15 mL liquid 20 meq PO TID Qty: 450 0RF albuterol sulfate 90 mcg/actuation HFA aerosol inhaler 2 puff inhalation Q4H PRN PRNQty: 8.5 0RF Discharge Instructions Instructions: COPD (Chronic Obstructive Pulmonary Disease) (DC), Moderate and Severe Persistent Asthma (DC), Bronchospasm (DC) Additional Instructions: You were treated for acute exacerbation of asthma and bronchiectasis w/ acute on chronic hypoxemic respiratory failure. You were treated for 10 days w/ combination of 8 days of iv antibiotics and 2 days of oral antibiotics. You should not need any further antibiotics. You were also treated w/ oxygen and inhaled bronchodilators and steroids. You are being sent home on a tapering dose of prednisone as follows: prednisone 40mg for 7 days total, then 30mg for 3 days, 20mg for 3 days, 10mg for 3 days, 5mg for 3 days (note you have already completed the 7 days of prednisone 40 mg per day, so you should continue on 30 mg per day and taper down. Continue your Symbicort and your Spiriva and use your albuterol inhaler as needed for acute wheezing. Please follow up w/ Dr. Kimbrough, your PCP within the next week. Please make and keep a follow up visit w/ Dr. Janett Pitts, paralegal supervisor, in the pulmonary clinic within the next month for management of your COPD/asthma overlap and your obesity hypoventilation syndrome. You did have an overnight pulse oximetry study while hospitalized and you did not have oxygen desaturations that suggests you probably do not have obstructive sleep apnea but it may be worthwhile to discuss w/ Dr. Pitts and Dr. Kimbrough obtaining an formal polysomnogram study. Weight loss can help with your hypoventilation syndrome. Stand Alone Forms: Nursing Discharge Form Referrals: GASTROENTEROLOGY,[facility] [OTHER] - (patient needs follow within the next month regarding GERD and chronic aspiration) Janett Pitts MD [ [facility] STAFF PHYSICIAN] - (Message left with office, they will call [facility]. If you do not hear from them please call them. patient needs follow up in pulmonary clinic in the next month regarding obstructive airway disease and OHS) Andrzej Kimbrough DO [Primary Care Provider] - (Please call to make a follow up appointment for next week.) Activity:: Activity as Tolerated Equipment/Supplies:: 2lpm@ rest, 3lpm@activity Diet:: Low Sodium Discharge Orders Discharge Orders: Discharge Order (Routine); Ordered 08/10/23 Ordered By: Kvng Wilkinson Other Ambulatory Orders: Basic Metabolic Panel (Routine) Timeframe: 1 Week Facility: [facility] - Location: Laboratory Outpatient - [facility] Ordered By: Kvng Wilkinson Discharge Data Discharge Date/Time-TO BE ENTERED AT DEPARTURE: 08/10/23 18:00 DS: Summary Time Spent with Patient providing and/or coordinating discharge services: Greater than 30 minutes Specific discharge activities: Interview/exam of patient; review of discharge instructions, completion of prescriptions/discharge instructions; discussion w/ nursing and CM; documentation of hospital visit Status at Discharge Functional status at discharge: independent ambulation Overall status at discharge: patient is back to baseline Mental Status: mental status grossly normal Speech and Movement: speech and movement normal Mood: congruent mood Affect: normal affect Quality:SDOH Health Related Social Needs: Health related social needs inadequate housing, risk of homeless, transpo insecurity Exam Narrative Exam Narrative: Middle-aged white female sitting up in a chair alert and oriented x 3 Neck supple no accessory respiratory muscle use Lungs clear anteriorly and posteriorly Heart is regular rate and rhythm Extremities trace of pedal edema Psych Mental Status: mental status grossly normal Speech and Movement: speech and movement normal Mood: congruent mood Affect: normal affect DS: Data Vitals/I&O Vitals and I&O: Vital Signs Temperature 35.1 C L 08/10/23 15:28 Temperature Source Tympanic 08/10/23 15:28 Pulse 96 H 08/10/23 16:13 Pulse Rhythm Regular 08/10/23 15:45 Pulse 74 08/07/23 13:46 Respiratory Rate 17 08/10/23 16:13 Respiratory Effort Normal, Non-Labored 08/10/23 15:45 Respiratory Depth Normal 08/10/23 15:45 Respiratory Pattern Normal 08/10/23 15:45 Blood Pressure 143/76 H 08/10/23 15:28 Blood Pressure Mean 81 08/07/23 13:46 Blood Pressure Position Sitting 08/07/23 07:24 Pulse Oximetry 93 08/10/23 16:13 Oxygen Delivery Method Nasal Cannula 08/10/23 16:13 Oxygen Flow Rate 3 08/10/23 16:13 Fraction of Inspired Oxygen (FIO2) 40 08/10/23 09:18 Pain Level 0 08/10/23 15:28 Comment Nurse in room when vitals got done. 08/09/23 10:56 Comment [id number] 08/01/23 06:18 Intake & Output 08/09/23 08/10/23 08/10/23 23:59 11:59 23:59 Intake Total 560 / 810 240 / 240 Balance 560 / 510 240 / 240 Intake: IV Oral 550 / 800 240 / 240 Other: Urine Color Yellow Urine Odor Normal Comment large urine void in commode, pT is independent in the bathroom Voiding Methods Toilet Data Completed and Pending Labs on day of discharge: Labs from last 24 hours 08/10/23 06:20 WBC 9.85 RBC 4.63 Hgb 12.6 Hct 40.8 MCV 88 MCH 27.2 MCHC 30.9 L RDW 14.2 Plt Count 246 MPV 9.4 Immature Gran % 0.6 Neutrophils % 53.1 Lymphocytes % 37.6 Monocytes % 8.1 Eosinophils % 0.4 Basophils % 0.2 Nucleated RBC % 0.0 Absolute Neutrophils 5.23 Absolute Lymphocytes 3.70 H Absolute Monocytes 0.80 Absolute Eosinophils 0.04 Absolute Basophils 0.02 PFSH All Active Problems Medication monitoring encounter (Acute) intermediate manager current use of diuretic (Acute) DVT prophylaxis (Acute) Esophageal stricture (Chronic) Bronchiectasis (Acute) Asthma exacerbation (Acute) Acute on chronic respiratory failure with hypoxia and hypercapnia (Acute) Discharge planning issues (Acute) Aspiration into airway (Chronic) Acute on chronic respiratory failure with hypoxemia (Acute) On deep vein thrombosis (DVT) prophylaxis (Acute) Bilateral leg edema (Chronic) Constipation (Chronic) Esophageal abnormality (Acute) Opioid use disorder, severe, on maintenance therapy (Chronic) GERD (gastroesophageal reflux disease) (Chronic) Hypothyroid (Chronic) Anxiety (Chronic 03/27/14) COPD (chronic obstructive pulmonary disease) (Chronic) Recurrent aspiration pneumonia (Acute) Bronchitis (Acute) Distal radius fracture (Acute) Medical History Abnormal auditory perception (03/29/14) Trouble in sleeping Depression History of drug abuse Irregular heart rhythm Hypertension Surgical History History of thyroidectomy Social History Smoking/Tobacco Use Status: Former Tobacco Use Quit Date: 06/13/99 Tobacco: How many years used: 15 Smoking risk assessment performed?: Yes Alcohol Intake: never Drug use: Current Sobriety Substance use type: former substance user Housing: apartment Current gender identity: female Do you feel safe at home: Yes Do you feel safe in your relationship?: Yes Time Spent with Patient Time Spent with Patient: <45 minutes Time was spent: preparing to see the patient(eg.review tests), ordering medications,tests, procedures, referring, communicating with other health manager primary care, indepentently interpreting results, counseling the patient and care coordination
--- NOTE | 2023-08-10 17:04 | CMDISCH_ITS ---
Date of service: 08/10/23 Time of Service: 17:04 LACE Index Scoring Tool Questions: Length of Stay (in days): 7 - 13 Was the patient admitted via the E.D.?: Yes Comorbidities: Chronic Pulmonary Disease E.D. Visits: 1 Answers: Total Score: 11 Risk of Readmission: High Risk Care Management Discharge Plan Reason for Hospitalization: COPD Exacerbation, hypoxic respiratory failure Discharge Plan: Frieda will return home when ready per MD, she will transport via [facility], coordinated by CM. She will have outpatient follow up with [facility] for EGD. Her PCP is also at [facility] and she has weekly [facility] appointments on Fridays. Frieda utilizes [facility] for home O2 at baseline. Patient/Family Education Needs: Review discharge instructions, discuss Ask Me Three. Services Needed at Discharge: Transportation SDOH Health Related Social Needs: Health related social needs inadequate housing, risk o f homeless, transpo insecurity Health related social needs: inadequate housing(Z59.1), housing instability, housed, with risk of homelessness(Z59.811) and transportation insecurity(Z59.82) Referrals and interventions: [facility] for transport. Currently housed in apartment with SO.
== END 2023-08-10 18:00 | disposition home or self-care (01) | DRG 205 ==
LOC: ER 11:50 → ICU 14:31 → MS 08-03 22:02 → ICU 08-04 13:32 → MS 08-07 14:46
PROVIDERS: Family Medicine; Internal Medicine; Nurse Practitioner Acute Care; Admitting Provider Family Medicine; Emergency Provider Emergency Medicine; PCP Internal Medicine; Visit Provider Family Medicine
DX: E66.2 Morbid (severe) obesity with alveolar hypoventilation (principal); J96.21 Acute and chronic respiratory failure with hypoxia; J96.22 Acute and chronic respiratory failure with hypercapnia; J47.1 Bronchiectasis with (acute) exacerbation; J45.901 Unspecified asthma with (acute) exacerbation; Z68.41 Body mass index [BMI] 40.0-44.9, adult; F11.20 Opioid dependence, uncomplicated; R60.0 Localized edema; K59.03 Drug induced constipation; K21.9 Gastro-esophageal reflux disease without esophagitis; Z79.899 Other long term (current) drug therapy; E87.6 Hypokalemia; K22.2 Esophageal obstruction; Z99.81 Dependence on supplemental oxygen; F41.9 Anxiety disorder, unspecified; F32.A Depression, unspecified; I10 Essential (primary) hypertension; F19.11 Other psychoactive substance abuse, in remission; I49.9 Cardiac arrhythmia, unspecified; E89.0 Postprocedural hypothyroidism; T17.908A Unspecified foreign body in respiratory tract, part unspecified causing other injury, initial encounter
CPT/HCPCS: 00123; 36415; 80048; 80053; 82805; 84145; 85027; 87040; 87077; 87635; 93005; 94618; 94640; 96365; 96375; 97110; 97162; 97530; 99233; 99285; 99291; J1650; 36600; 71045; 83735; 83880; 84443; 84484; 85025; 85610; 85730; 87070; 87186; 87205; 93010; 93970; 94010; 94660; 94664; 94667; 94668; 94760; 94762; 99222; 99232; 99238; J0131; J1940; J1941; J2543; J2930; J3490; J7512; J7613; J7620

== ENCOUNTER → 2023-08-02 13:39 | Outpatient (BNVA) | payer MEDICARE, SELFPAY | PROVIDERS: PCP Internal Medicine; Referring Provider Internal Medicine; Visit Provider Student in an Organized Health Care Education/Training Program ==

== ENCOUNTER → 2023-09-07 09:36 | Outpatient (BNVA) | payer MEDICARE, SELFPAY | PROVIDERS: PCP Internal Medicine; Referring Provider Internal Medicine; Visit Provider Physician Assistant Surgical | DX: J47.1 Bronchiectasis with (acute) exacerbation (principal); E66.2 Morbid (severe) obesity with alveolar hypoventilation; J45.901 Unspecified asthma with (acute) exacerbation; J96.11 Chronic respiratory failure with hypoxia; J96.12 Chronic respiratory failure with hypercapnia | CPT/HCPCS: 99215 ==

== ENCOUNTER → 2023-12-14 10:49 | Outpatient (BNVA) | payer MEDICARE, SELFPAY | PROVIDERS: PCP Internal Medicine; Referring Provider Internal Medicine; Visit Provider Physician Assistant Surgical | DX: J47.1 Bronchiectasis with (acute) exacerbation (principal); E66.2 Morbid (severe) obesity with alveolar hypoventilation; J45.901 Unspecified asthma with (acute) exacerbation; J96.11 Chronic respiratory failure with hypoxia; J96.12 Chronic respiratory failure with hypercapnia | CPT/HCPCS: 99214 ==

== ENCOUNTER 2025-01-24 18:01 | Emergency (ER) | payer MEDICARE, SELFPAY ==
[2025-01-24 18:04] VITALS: BP 147/79; PULSE 118; RESP 18; TEMP 37.2; O2SAT 91
--- NOTE | 2025-01-24 18:25 | W.ED.GENAD ---
Discharge Plan Disposition Patient Disposition: Home Condition: Good Discharge Details Clinical Impression: Cellulitis of left leg Primary Care Provider: Andrzej Kimbrough ED Provider: Christopher Doyle Home Meds and New Rx's Prescriptions: New cephalexin 500 mg capsule 500 mg PO QID 10 Days Qty: 40 0RF No Action guaifenesin [Adult Tussin Chest Congestion] 100 mg/5 mL liquid 200 mg PO Q4H PRN methadone 10 MG/5 ML solution 98 mg PO DAILY mirtazapine 45 MG tablet 45 mg PO DAILY levothyroxine 200 MCG tablet 200 mcg PO DAILY zolpidem 5 MG tablet 5 mg PO HS docusate sodium [Dulcolax Stool Softener (dss)] 100 MG capsule 200 mg PO DAILY Patient Comments: has not taken in the past week. simvastatin 10 MG tablet 10 mg PO DAILY dexlansoprazole [Dexilant] 60 mg Capsule,Biphase Delayed Releas 1 tab PO DAILY diltiazem HCl 30 mg tablet 30 mg PO Q8H Patient Comments: TAKE ONE TABLET BY MOUTH EVERY 8 HOURS spironolactone 25 mg Tablet 25 mg PO DAILY Qty: 30 0RF sennosides [Senokot] 8.6 mg Tablet 8.6 mg PO HS Qty: 30 0RF tiotropium bromide [Spiriva with HandiHaler] 18 mcg capsule, w/inhalation device 1 cap inhalation DAILY Qty: 30 0RF Rx Instructions: puncture 1 cap using device; one dose = 2 inhalations lorazepam 1 MG tablet 1 mg PO Q6H PRN PRNQty: 14 0RF budesonide-formoterol [Symbicort] 160-4.5 mcg/actuation Hfa Aerosol Inhaler 2 puff inhalation BID Qty: 0 0RF lorazepam 0.5 mg tablet 0.5 mg PO DAILY PRN Patient Comments: TAKE ONE TABLET BY MOUTH EVERY DAY NEEDED FOR ANXIETY mirtazapine 15 mg tablet,disintegrating 15 mg PO HS Patient Comments: DISSOLVE ONE TABLET BY MOUTH AT BEDTIME WITH 45MG spironolactone 25 mg tablet 25 mg PO DAILY Qty: 30 0RF furosemide [Lasix] 20 mg tablet 20 mg PO BID Qty: 60 0RF albuterol sulfate 90 mcg/actuation HFA aerosol inhaler 2 puff inhalation Q4H PRN PRNQty: 8.5 0RF ipratropium-albuterol 0.5 mg-3 mg(2.5 mg base)/3 mL solution for nebulization 3 ml inhalation Q4H PRNQty: 180 0RF Rx Instructions: until breathing returns to target peak flow/parameters Discharge Instructions Instructions: Cellulitis (Skin Infection), Adult ED Additional Instructions: At this time you have evidence of a bacterial infection in your legs. We have placed a referral with our care managers to help establish wound care for you on an outpatient basis. Please take the antibiotic as prescribed to help treat the infection. Please change the bandaging daily as you are able. If you notice that the redness worsens, this may represent that there could be resistance to the antibiotic that has been chosen. Please return immediately for reassessment if you notice worsening. If you notice any worsening of your symptoms, or any new symptoms such as vomiting, diarrhea, fever, chills, shortness of breath, chest pain, numbness, weakness, or fainting , please return immediately to the emergency department for reevaluation. Please follow up with your primary care provider as soon as possible for reassessment and reevaluation. As always, it was a pleasure participating in your medical care today. Referrals: Andrzej Kimbrough DO [Primary Care Provider, Medicine] HPI General Date/Time Provider Initiated Documentation: 01/24/25 18:14. HPI Narrative: 64-year-old female with past medical history of chronic oxygen use at 3 L with COPD, GERD, obesity, chronic lower extremity swelling on Lasix, high cholesterol, presents today for evaluation of redness on her lower extremities. Her left lower extremity has had very small wounds on the front that she has been managing for the last month. They have gradually been getting worse with more oozing, and spreading redness. Then in the past week she has had a wound on the back of her calf which is also increased in redness and oozing as of late. She tries to bandage these herself, but struggle secondary to habitus and flexibility. She does not have help at home. She has noticed that the redness has been spreading throughout the leg, and came to the ER for further assessment. She denies fever or chills. She denies significant pain. She denies numbness or tingling. She denies any trauma. No other complaints at this time. No other modifying factors. Related Data Home Medications ?Medication ?Instructions ?Recorded ?Confirmed levothyroxine 200 mcg tablet 200 mcg PO DAILY 01/17/13 01/24/25 methadone 10 mg/5 mL oral solution 98 mg PO DAILY 01/17/13 01/24/25 mirtazapine 45 mg tablet 45 mg PO DAILY 01/17/13 01/24/25 zolpidem 5 mg tablet 5 mg PO HS 01/17/13 01/24/25 docusate sodium 100 mg capsule 200 mg PO DAILY 01/23/13 01/24/25 (Dulcolax Stool Softener (docusate)) simvastatin 10 mg tablet 10 mg PO DAILY 03/12/13 01/24/25 lorazepam 1 mg tablet 1 mg PO Q6H PRN PRN #14 tabs 11/05/16 01/24/25 dexlansoprazole 60 mg 1 tab PO DAILY 03/17/18 01/24/25 capsule,biphase delayed release (Dexilant) budesonide-formoterol HFA 160 2 puff inhalation BID #0 grams 08/29/22 01/24/25 mcg-4.5 mcg/actuation aerosol inhaler (Symbicort) diltiazem HCl 30 mg tablet 30 mg PO Q8H 05/17/23 01/24/25 sennosides 8.6 mg tablet (Senokot) 8.6 mg PO HS #30 tabs 05/25/23 01/24/25 spironolactone 25 mg tablet 25 mg PO DAILY #30 tabs 05/25/23 01/24/25 tiotropium bromide 18 mcg capsule 1 cap inhalation DAILY #30 05/25/23 01/24/25 with inhalation device (Spiriva inhalations with HandiHaler) lorazepam 0.5 mg tablet 0.5 mg PO DAILY PRN 07/31/23 01/24/25 mirtazapine 15 mg disintegrating 15 mg PO HS 08/03/23 01/24/25 tablet albuterol sulfate 90 mcg/actuation 2 puff inhalation Q4H PRN PRN #8.5 08/10/23 01/24/25 aerosol inhaler grams furosemide 20 mg tablet (Lasix) 20 mg PO BID #60 tabs 08/10/23 01/24/25 spironolactone 25 mg tablet 25 mg PO DAILY #30 tabs 08/10/23 01/24/25 ipratropium 0.5 mg-albuterol 3 mg 3 ml inhalation Q4H PRN #180 mL 08/11/23 01/24/25 (2.5 mg base)/3 mL nebulization soln guaifenesin 100 mg/5 mL oral 200 mg PO Q4H PRN 12/14/23 01/24/25 liquid (Adult Tussin Chest Congestion) cephalexin 500 mg capsule 500 mg PO QID 10 days #40 caps 01/24/25 Previous Rx's ?Medication ?Instructions ?Recorded lorazepam 1 mg tablet 1 mg PO Q6H PRN PRN #14 tabs 11/05/16 budesonide-formoterol HFA 160 2 puff inhalation BID #0 grams 08/29/22 mcg-4.5 mcg/actuation aerosol inhaler (Symbicort) sennosides 8.6 mg tablet (Senokot) 8.6 mg PO HS #30 tabs 05/25/23 spironolactone 25 mg tablet 25 mg PO DAILY #30 tabs 05/25/23 tiotropium bromide 18 mcg capsule 1 cap inhalation DAILY #30 05/25/23 with inhalation device (Spiriva inhalations with HandiHaler) albuterol sulfate 90 mcg/actuation 2 puff inhalation Q4H PRN PRN #8.5 08/10/23 aerosol inhaler grams furosemide 20 mg tablet (Lasix) 20 mg PO BID #60 tabs 08/10/23 spironolactone 25 mg tablet 25 mg PO DAILY #30 tabs 08/10/23 ipratropium 0.5 mg-albuterol 3 mg 3 ml inhalation Q4H PRN #180 mL 08/11/23 (2.5 mg base)/3 mL nebulization soln cephalexin 500 mg capsule 500 mg PO QID 10 days #40 caps 01/24/25 Allergies Allergy/AdvReac Type Severity Reaction Status Date / Time No Known Allergies Allergy Unverified 01/24/25 18:07 General Stated Complaint: Cellulitis PAULINE: 3 Exam Narrative Exam Narrative: 1.Const: Well-nourished, Well-developed, appearing stated age 2.Eyes: PERRL, no conjunctival injection, and symmetrical lids. 3.ENT: Atraumatic external nose and ears. Moist MM. Neck: Symmetric, trachea midline, No thyromegaly. 4.CVS: +S1/S2, Peripheral pulses 2+ and equal in all extremities. Brisk capillary refill in all extremities. 5.RESP: Unlabored respiratory effort. Clear to auscultation bilaterally. No wheezes rales or rhonchi 6.GI: Soft, Nontender/Nondistended, No hepatosplenomegaly. No guarding or rebound. 7.MSK: Normocephalic/Atraumatic, Extremities w/o deformity or ttp No cyanosis or clubbing, notable +3 pitting edema bilaterally. Chronic edema of the lower extremities. Left lower extremity demonstrates redness in the anterior guthrie throughout, with some mild oozing wounds. No fluctuance to suggest abscess. There is also a lesion on the posterior aspect, similar appearance. No redness proximal to the knee. No redness on the foot. 8.Skin: Warm, Dry. 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 Sensation grossly intact, no focal neurologic deficits. 10.Psych: (AAO) x3. Appropriate mood and affect Course Vital Signs Vital signs: Vital Signs Temperature 37.2 C 01/24/25 18:04 Pulse 118 H 01/24/25 18:04 Respiratory Rate 18 01/24/25 18:04 Blood Pressure 147/79 H 01/24/25 18:04 Pulse Oximetry 91 L 01/24/25 18:04 Temperature 37.2 C 01/24/25 18:04 Temperature Source Oral 01/24/25 18:04 Pulse 118 H 01/24/25 18:04 Respiratory Rate 18 01/24/25 18:04 Blood Pressure 147/79 H 01/24/25 18:04 Pulse Oximetry 91 L 01/24/25 18:04 Oxygen Delivery Method Nasal Cannula 01/24/25 18:04 Oxygen Flow Rate 3 01/24/25 18:04 Medical Decision Making 64-year-old female with past medical history of chronic oxygen use at 3 L with COPD, GERD, obesity, chronic lower extremity swelling on Lasix, high cholesterol, presents today for evaluation of redness on her lower extremities. Her left lower extremity has had very small wounds on the front that she has been managing for the last month. They have gradually been getting worse with more oozing, and spreading redness. Then in the past week she has had a wound on the back of her calf which is also increased in redness and oozing as of late. She tries to bandage these herself, but struggle secondary to habitus and flexibility. She does not have help at home. She has noticed that the redness has been spreading throughout the leg, and came to the ER for further assessment. She denies fever or chills. She denies significant pain. She denies numbness or tingling. She denies any trauma. No other complaints at this time. No other modifying factors. Physical exam demonstrates chronic edema in the lower extremities bilaterally, left lower extremity demonstrates some chronic wounds in the anterior and posterior component, with mild oozing and mild surrounding erythema. Patient is afebrile, no complaints of fever or chills at home whatsoever. No evidence of systemic involvement. No streaking redness up past the knee. The patient denies any MRSA history. Symptoms appear consistent with mild cellulitis. Will give Keflex here and a prescription for home. Will recommend continued use of Lasix and compression stockings. Will place referral for home health for wound care. Discussed red flags for which return. I have extensively reviewed the treatment plan and discharge instructions with the patient. I have addressed all patient concerns at this time. The patient was made aware of what symptoms to monitor for that would warrant a return to the emergency department. Discussed the plan with the patient, they demonstrate verbal understanding and agreement with our assessment and plan at this time. The documentation in this chart was dictated using [employer] dictation software. Please excuse any dictation errors. PFSH All Active Problems (Updated 01/24/25 @ 18:30 by Christopher Doyle DO) Cellulitis of left leg (Acute) Chronic respiratory failure with hypoxia and hypercapnia (Acute) Medication monitoring encounter (Acute) half-way current use of diuretic (Acute) Esophageal stricture (Chronic) Bronchiectasis (Acute) Asthma exacerbation (Acute) Acute on chronic respiratory failure with hypoxia and hypercapnia (Acute) Discharge planning issues (Acute) Aspiration into airway (Chronic) Acute on chronic respiratory failure with hypoxemia (Acute) On deep vein thrombosis (DVT) prophylaxis (Acute) Bilateral leg edema (Chronic) Constipation (Chronic) Esophageal abnormality (Acute) Opioid use disorder, severe, on maintenance therapy (Chronic) GERD (gastroesophageal reflux disease) (Chronic) Hypothyroid (Chronic) Anxiety (Chronic 03/27/14) COPD (chronic obstructive pulmonary disease) (Chronic) Recurrent aspiration pneumonia (Acute) Bronchitis (Acute) Distal radius fracture (Acute) Medical History Abnormal auditory perception (03/29/14) Trouble in sleeping Depression History of drug abuse Irregular heart rhythm Hypertension Surgical History History of thyroidectomy Social History Smoking/Tobacco Use Status: Former Tobacco Use Quit Date: 06/13/99 Tobacco: How many years used: 15 Smoking risk assessment performed?: Yes Alcohol Intake: never Drug use: Current Sobriety Substance use type: former substance user Housing: apartment Current gender identity: female Do you feel safe at home: Yes Do you feel safe in your relationship?: Yes
[2025-01-24] MEDS: Cephalexin 500 MG CAP, 4 CAPS/BTL PO (18:46)
[2025-01-24 18:58] VITALS: BP 147/79; RESP 18; O2SAT 91
--- NOTE | 2025-01-28 10:00 | NUR.NOTE ---
Nursing Note: This RN in pt chart d/t pt calling to the department had questions about the f/u care she is going to receive at home
--- NOTE | 2025-01-28 17:43 | NUR.NOTE ---
Spoke with Pt who was trying to get a referral sent to Home Health so that she can get some help. Pt was told that the Provider who submittted the referral will need to fill out the packet and fax it in. This correctional therapy director sent a WebEx note to provider and put a blank application in his box.
== END 2025-01-24 18:58 | disposition home or self-care (01) ==
LOC: ER 18:57
PROVIDERS: Emergency Provider Student in an Organized Health Care Education/Training Program; PCP Internal Medicine
DX: L03.116 Cellulitis of left lower limb (principal); R22.43 Localized swelling, mass and lump, lower limb, bilateral; I10 Essential (primary) hypertension
CPT/HCPCS: 99283 ×2

== ENCOUNTER 2025-02-01 09:54 | Emergency (ER) | payer MEDICARE, SELFPAY ==
[2025-02-01] VITALS (19 sets, daily range): BP systolic 111–156; BP diastolic 44–78; PULSE 69–118; RESP 10–22; TEMP 36.8; O2SAT 90–94
--- NOTE | 2025-02-01 10:15 | DI.RAD_ITS ---
Exam(s) XR PORTABLE CHEST AP EXAM: XR PORTABLE CHEST AP CLINICAL HISTORY: SOB, hypoxemia. TECHNIQUE: 2D digital imaging was performed. COMPARISON: CR XR PORTABLE CHEST AP from 08/03/2023 FINDINGS: Single AP portable view. Heart size is upper normal. The mediastinum is not widened. Lungs are clear. No infiltrates nor obvious pleural effusions. Scoliosis convex right again noted. IMPRESSION: No acute pulmonary findings on this single AP portable view of the chest. DATA REPOSITORY: RADIATION DOSE DELIVERED:
[2025-02-01 10:51] LABS: Abs Immature Grans 0.01 10^3/uL (0.0-0.06); HCT 38.7 % (36.0-46.0); HGB 11.6 g/dL (11.2-15.7); Immature Grans % 0.2 %; MCH 26.3 pg (27.0-33.0); MCHC 30.0 % (32.0-36.0); MCV 88 fL (80-95); MPV 9.0 fL (8.0-11.0); Platelet Count 212 10^3/uL (130-400); RBC 4.41 10^6/uL (3.93-5.22); RDW 14.7 % (11.7-14.6); RDW-SD 47.4 fL; WBC 4.65 10^3/uL (4.4-10.8)
[2025-02-01] MEDS: Furosemide 20 MG/2 ML VIAL IVP (10:55)
--- NOTE | 2025-02-01 11:01 | W.ED.GENAD ---
Discharge Plan Disposition Patient Disposition: Home Condition: Good Discharge Details Clinical Impression: Peripheral edema, Cellulitis of left leg Primary Care Provider: Andrzej Kimbrough ED Provider: Christopher Doyle Home Meds and New Rx's Prescriptions: New potassium chloride [K-Tab] 20 mEq tablet extended release 20 meq PO DAILY Qty: 3 0RF No Action guaifenesin [Adult Tussin Chest Congestion] 100 mg/5 mL liquid 200 mg PO Q4H PRN methadone 10 MG/5 ML solution 98 mg PO DAILY mirtazapine 45 MG tablet 45 mg PO DAILY levothyroxine 200 MCG tablet 200 mcg PO DAILY zolpidem 5 MG tablet 5 mg PO HS docusate sodium [Dulcolax Stool Softener (dss)] 100 MG capsule 200 mg PO DAILY Patient Comments: has not taken in the past week. simvastatin 10 MG tablet 10 mg PO DAILY dexlansoprazole [Dexilant] 60 mg Capsule,Biphase Delayed Releas 1 tab PO DAILY diltiazem HCl 30 mg tablet 30 mg PO Q8H Patient Comments: TAKE ONE TABLET BY MOUTH EVERY 8 HOURS spironolactone 25 mg Tablet 25 mg PO DAILY Qty: 30 0RF sennosides [Senokot] 8.6 mg Tablet 8.6 mg PO HS Qty: 30 0RF tiotropium bromide [Spiriva with HandiHaler] 18 mcg capsule, w/inhalation device 1 cap inhalation DAILY Qty: 30 0RF Rx Instructions: puncture 1 cap using device; one dose = 2 inhalations lorazepam 1 MG tablet 1 mg PO Q6H PRN PRNQty: 14 0RF budesonide-formoterol [Symbicort] 160-4.5 mcg/actuation Hfa Aerosol Inhaler 2 puff inhalation BID Qty: 0 0RF lorazepam 0.5 mg tablet 0.5 mg PO DAILY PRN Patient Comments: TAKE ONE TABLET BY MOUTH EVERY DAY NEEDED FOR ANXIETY mirtazapine 15 mg tablet,disintegrating 15 mg PO HS Patient Comments: DISSOLVE ONE TABLET BY MOUTH AT BEDTIME WITH 45MG spironolactone 25 mg tablet 25 mg PO DAILY Qty: 30 0RF furosemide [Lasix] 20 mg tablet 20 mg PO BID Qty: 60 0RF albuterol sulfate 90 mcg/actuation HFA aerosol inhaler 2 puff inhalation Q4H PRN PRNQty: 8.5 0RF ipratropium-albuterol 0.5 mg-3 mg(2.5 mg base)/3 mL solution for nebulization 3 ml inhalation Q4H PRNQty: 180 0RF Rx Instructions: until breathing returns to target peak flow/parameters cephalexin 500 mg capsule 500 mg PO QID 10 Days Qty: 40 0RF Discharge Instructions Instructions: Swelling, Cellulitis (Skin Infection), Adult ED Additional Instructions: At this time your laboratory workup has returned reassuring. Your chest x-ray shows no evidence of significant congestive heart failure. In addition to that, your infection appears to be improving. Please continue taking the antibiotics until it is completed. Please keep your legs elevated, and use the wraps. We have signed the paperwork for wound care, and they should hopefully connect with you this week. To help with the leg swelling, please avoid salty foods, take your Lasix 20 mg daily. Your potassium was slightly low, and so we have given you 3 days of very low dose potassium to help keep this stable. Take this as prescribed. Please follow-up very closely with your primary care provider for reassessment and continued monitoring of your wounds and legs. If you notice any worsening of your symptoms, or any new symptoms such as vomiting, diarrhea, fever, chills, shortness of breath, chest pain, numbness, weakness, or fainting , please return immediately to the emergency department for reevaluation. Please follow up with your primary care provider as soon as possible for reassessment and reevaluation. As always, it was a pleasure participating in your medical care today. Referrals: Andrzej Kimbrough DO [Primary Care Provider, Medicine] HPI General Date/Time Provider Initiated Documentation: 02/01/25 09:55. HPI Narrative: This is a 64-year-old female with a past medical history of chronic oxygen use as needed at 3 L, COPD, GERD, obesity, chronic lower extremity swelling on diuretics, high cholesterol, who presents today for recheck of her legs. Patient was seen just over 1 week ago on 01/24/2025. At that time she had chronic lower extremity edema, but also demonstrated evidence of moderate early cellulitis. There was a small amount of weeping secondary to skin breakdown from the cellulitis and her chronic peripheral edema. She was started on a course of Keflex at 500 mg every 6 hours. She has just 1 or 2 days left in the 10-day course. Patient states that the redness is notably improved, the warmth is notably improved. She has had no fever or chills. However she has noticed that the legs have been continuing to weep. Referral was placed for wound care in the home. Paperwork was completed today prior to patient arrival. Patient denies any other major complaints. She does admit to feeling slightly short of breath compared to normal, and has been using her oxygen more frequently. She has been noticing that her O2 drops to the high 80s when she is sitting which is slightly more than normal. She has only been taking her Lasix intermittently as she is concerned that it could change her potassium levels too much. She denies any chest pain or shortness of breath. She has no other complaints at this time. No other modifying factors. Related Data Home Medications ?Medication ?Instructions ?Recorded ?Confirmed levothyroxine 200 mcg tablet 200 mcg PO DAILY 01/17/13 02/01/25 methadone 10 mg/5 mL oral solution 98 mg PO DAILY 01/17/13 02/01/25 mirtazapine 45 mg tablet 45 mg PO DAILY 01/17/13 02/01/25 zolpidem 5 mg tablet 5 mg PO HS 01/17/13 02/01/25 docusate sodium 100 mg capsule 200 mg PO DAILY 01/23/13 02/01/25 (Dulcolax Stool Softener (docusate)) simvastatin 10 mg tablet 10 mg PO DAILY 03/12/13 02/01/25 lorazepam 1 mg tablet 1 mg PO Q6H PRN PRN #14 tabs 11/05/16 02/01/25 dexlansoprazole 60 mg 1 tab PO DAILY 03/17/18 02/01/25 capsule,biphase delayed release (Dexilant) budesonide-formoterol HFA 160 2 puff inhalation BID #0 grams 08/29/22 02/01/25 mcg-4.5 mcg/actuation aerosol inhaler (Symbicort) diltiazem HCl 30 mg tablet 30 mg PO Q8H 05/17/23 02/01/25 sennosides 8.6 mg tablet (Senokot) 8.6 mg PO HS #30 tabs 12/13/23 08/22/25 spironolactone 25 mg tablet 25 mg PO DAILY #30 tabs 05/25/23 02/01/25 tiotropium bromide 18 mcg capsule 1 cap inhalation DAILY #30 05/25/23 02/01/25 with inhalation device (Spiriva inhalations with HandiHaler) lorazepam 0.5 mg tablet 0.5 mg PO DAILY PRN 07/31/23 02/01/25 mirtazapine 15 mg disintegrating 15 mg PO HS 08/03/23 02/01/25 tablet albuterol sulfate 90 mcg/actuation 2 puff inhalation Q4H PRN PRN #8.5 08/10/23 02/01/25 aerosol inhaler grams furosemide 20 mg tablet (Lasix) 20 mg PO BID #60 tabs 08/10/23 02/01/25 spironolactone 25 mg tablet 25 mg PO DAILY #30 tabs 08/10/23 02/01/25 ipratropium 0.5 mg-albuterol 3 mg 3 ml inhalation Q4H PRN #180 mL 08/11/23 02/01/25 (2.5 mg base)/3 mL nebulization soln guaifenesin 100 mg/5 mL oral 200 mg PO Q4H PRN 12/14/23 02/01/25 liquid (Adult Tussin Chest Congestion) cephalexin 500 mg capsule 500 mg PO QID 10 days #40 caps 01/24/25 02/01/25 potassium chloride 20 mEq 20 meq PO DAILY #3 tabs 02/01/25 tablet,extended release (K-Tab) Previous Rx's ?Medication ?Instructions ?Recorded lorazepam 1 mg tablet 1 mg PO Q6H PRN PRN #14 tabs 11/05/16 budesonide-formoterol HFA 160 2 puff inhalation BID #0 grams 08/29/22 mcg-4.5 mcg/actuation aerosol inhaler (Symbicort) sennosides 8.6 mg tablet (Senokot) 8.6 mg PO HS #30 tabs 05/25/23 spironolactone 25 mg tablet 25 mg PO DAILY #30 tabs 05/25/23 tiotropium bromide 18 mcg capsule 1 cap inhalation DAILY #30 05/25/23 with inhalation device (Spiriva inhalations with HandiHaler) albuterol sulfate 90 mcg/actuation 2 puff inhalation Q4H PRN PRN #8.5 08/10/23 aerosol inhaler grams furosemide 20 mg tablet (Lasix) 20 mg PO BID #60 tabs 08/10/23 spironolactone 25 mg tablet 25 mg PO DAILY #30 tabs 08/10/23 ipratropium 0.5 mg-albuterol 3 mg 3 ml inhalation Q4H PRN #180 mL 08/11/23 (2.5 mg base)/3 mL nebulization soln cephalexin 500 mg capsule 500 mg PO QID 10 days #40 caps 01/24/25 potassium chloride 20 mEq 20 meq PO DAILY #3 tabs 02/01/25 tablet,extended release (K-Tab) Allergies Allergy/AdvReac Type Severity Reaction Status Date / Time No Known Allergies Allergy Unverified 02/01/25 10:02 General Stated Complaint: Cellulitis PAULINE: 3 Exam Narrative Exam Narrative: 1.Const: Well-nourished, Well-developed, appearing stated age 2.Eyes: PERRL, no conjunctival injection, and symmetrical lids. 3.ENT: Atraumatic external nose and ears. Moist MM. Neck: Symmetric, trachea midline, No thyromegaly. 4.CVS: +S1/S2, Peripheral pulses 2+ and equal in all extremities. Brisk capillary refill in all extremities. 5.RESP: Unlabored respiratory effort. Clear to auscultation bilaterally. No wheezes rales or rhonchi 6.GI: Soft, Nontender/Nondistended, No hepatosplenomegaly. No guarding or rebound. 7.MSK: Normocephalic/Atraumatic, Extremities w/o deformity or ttp No cyanosis or clubbing, Normal movement of all extremities. Notable +3 pitting edema bilaterally. 8.Skin: Skin breakdown is noted in the posterior aspect of the left calf with notable cobblestoning, and the superficial layer of the skin starting to breakdown with present weeping the anterior component of the guthrie demonstrates notable dryness of the skin, with peeling, and a honeydew crusting on the anterior central aspect. No fluctuance or abscess or either location. Minimal erythema for the anterior component, no acute erythema on the posterior component. Legs demonstrate appropriate warmth and temperature with no extreme redness or heat. No evidence of spreading cellulitis. For that matter the erythema looks notably better compared to prior exam. Please see images 9.Neuro: crime specialist II-XII grossly intact. Sensation grossly intact, no focal neurologic deficits. 10.Psych: (AAO) x3. Appropriate mood and affect Course Vital Signs Vital signs: Vital Signs Temperature 36.8 C 02/01/25 09:57 Pulse 118 H 02/01/25 09:57 Respiratory Rate 16 02/01/25 09:57 Blood Pressure 156/78 H 02/01/25 09:57 Pulse Oximetry 90 L 02/01/25 09:57 Temperature 36.8 C 02/01/25 10:15 Temperature Source Oral 02/01/25 10:15 Pulse 118 H 02/01/25 10:15 Respiratory Rate 16 02/01/25 10:15 Blood Pressure 156/78 H 02/01/25 10:15 Pulse Oximetry 90 L 02/01/25 10:15 Oxygen Delivery Method Room Air 02/01/25 10:15 Oxygen Flow Rate 0 02/01/25 10:15 Pain Level 0 02/01/25 10:15 Lab/Test Results Lab/Test Results: Laboratory Tests Range/Units 02/01/25 10:44 WBC (4.4-10.8) 10^3/uL 4.65 RBC (3.93-5.22) 10^6/uL 4.41 Hgb (11.2-15.7) g/dL 11.6 Hct (36.0-46.0) % 38.7 MCV (80-95) fL 88 MCH (27.0-33.0) pg 26.3 L MCHC (32.0-36.0) % 30.0 L RDW (11.7-14.6) % 14.7 H Plt Count (130-400) 10^3/uL 212 MPV (8.0-11.0) fL 9.0 Immature Gran % % 0.2 Neutrophils % % 68.2 Lymphocytes % % 18.3 Monocytes % % 6.7 Eosinophils % % 6.0 Basophils % % 0.6 Nucleated RBC % (0.0-0.3) % 0.0 Absolute Neutrophils (1.2-6.7) 10^3/uL 3.17 Absolute Lymphocytes (1.2-3.4) 10^3/uL 0.85 L Absolute Monocytes (0.1-0.8) 10^3/uL 0.31 Absolute Eosinophils (0.0-0.7) 10^3/uL 0.28 Absolute Basophils (0.0-0.2) 10^3/uL 0.03 Medical Decision Making This is a 64-year-old female with a past medical history of chronic oxygen use as needed at 3 L, COPD, GERD, obesity, chronic lower extremity swelling on diuretics, high cholesterol, who presents today for recheck of her legs. Patient was seen just over 1 week ago on 01/24/2025. At that time she had chronic lower extremity edema, but also demonstrated evidence of moderate early cellulitis. There was a small amount of weeping secondary to skin breakdown from the cellulitis and her chronic peripheral edema. She was started on a course of Keflex at 500 mg every 6 hours. She has just 1 or 2 days left in the 10-day course. Patient states that the redness is notably improved, the warmth is notably improved. She has had no fever or chills. However she has noticed that the legs have been continuing to weep. Referral was placed for wound care in the home. Paperwork was completed today prior to patient arrival. Patient denies any other major complaints. She does admit to feeling slightly short of breath compared to normal, and has been using her oxygen more frequently. She has been noticing that her O2 drops to the high 80s when she is sitting which is slightly more than normal. She has only been taking her Lasix intermittently as she is concerned that it could change her potassium levels too much. She denies any chest pain or shortness of breath. She has no other complaints at this time. No other modifying factors. Skin breakdown is noted in the posterior aspect of the left calf with notable cobblestoning, and the superficial layer of the skin starting to breakdown with present weeping the anterior component of the guthrie demonstrates notable dryness of the skin, with peeling, and a honeydew crusting on the anterior central aspect. No fluctuance or abscess or either location. Minimal erythema for the anterior component, no acute erythema on the posterior component. Legs demonstrate appropriate warmth and temperature with no extreme redness or heat. No evidence of spreading cellulitis. For that matter the erythema looks notably better compared to prior exam. Symptoms appear consistent with notable cellulitis improvement, however it is complicated by the patient's chronic peripheral edema which is certainly leading to his significant skin breakdown aspect. Patient is quite hesitant to use diuretics secondary to her concern for potential electrolyte abnormality. We will get basic blood work to evaluate for electrolyte stability, we will give her twice daily of Lasix here. Will determine evidence to suggest CHF exacerbation or fluid overload, will monitor closely and reassess. Otherwise I do not see evidence of an acute infectious component requiring additional management. 12:11 PM On reassessment patient has had notable urination. Her legs feel less time. Her laboratory workup shows no white count to represent systemic infection, no bandemia. Electrolytes are normal, potassium minimally low at 3.4. Patient is very concerned that she will become potassium depleted with the Lasix use. We will give some oral potassium here and just 2 or 3 days low dose for home use to prevent hypo-kalemia. proBNP is normal at 19, chest x-ray shows no evidence of fluid overload in the lungs. With the objective improvement of the redness and cellulitis, with the lack of systemic symptoms, and with the reassuring laboratory workup, I do not see an indication for admission at this time. I do feel that outpatient care can continue to be titrated for maximum treatment prior to need for inpatient admission. We will recommend that the patient takes her prescribed 20 mg of Lasix daily for the next week. (She has not been taking any as of late). We recommend continued elevation of her legs, tight stockings, completion of the antibiotic and close follow-up with her PCP this coming week. I have extensively reviewed the treatment plan and discharge instructions with the patient. I have addressed all patient concerns at this time. The patient was made aware of what symptoms to monitor for that would warrant a return to the emergency department. Discussed the plan with the patient, they demonstrate verbal understanding and agreement with our assessment and plan at this time. The documentation in this chart was dictated using [employer] dictation software. Please excuse any dictation errors. FINDINGS: Single AP portable view. Heart size is upper normal. The mediastinum is not widened. Lungs are clear. No infiltrates nor obvious pleural effusions. Scoliosis convex right again noted. IMPRESSION: No acute pulmonary findings on this single AP portable view of the chest. PFSH All Active Problems (Updated 02/01/25 @ 12:16 by Christopher Doyle DO) Cellulitis of left leg (Acute) Peripheral edema (Acute) Cellulitis of left leg (Acute) Chronic respiratory failure with hypoxia and hypercapnia (Acute) Medication monitoring encounter (Acute) rn long term care current use of diuretic (Acute) Esophageal stricture (Chronic) Bronchiectasis (Acute) Asthma exacerbation (Acute) Acute on chronic respiratory failure with hypoxia and hypercapnia (Acute) Discharge planning issues (Acute) Aspiration into airway (Chronic) Acute on chronic respiratory failure with hypoxemia (Acute) On deep vein thrombosis (DVT) prophylaxis (Acute) Bilateral leg edema (Chronic) Constipation (Chronic) Esophageal abnormality (Acute) Opioid use disorder, severe, on maintenance therapy (Chronic) GERD (gastroesophageal reflux disease) (Chronic) Hypothyroid (Chronic) Anxiety (Chronic 03/27/14) COPD (chronic obstructive pulmonary disease) (Chronic) Recurrent aspiration pneumonia (Acute) Bronchitis (Acute) Distal radius fracture (Acute) Medical History Abnormal auditory perception (03/29/14) Trouble in sleeping Depression History of drug abuse Irregular heart rhythm Hypertension Surgical History History of thyroidectomy Social History Smoking/Tobacco Use Status: Former Tobacco Use Quit Date: 06/13/99 Tobacco: How many years used: 15 Smoking risk assessment performed?: Yes Alcohol Intake: never Drug use: Current Sobriety Substance use type: former substance user Housing: apartment Current gender identity: female Do you feel safe at home: Yes Do you feel safe in your relationship?: Yes
[2025-02-01 11:13] LABS: ALT 21 U/L (14-59); AST 17 U/L (15-37); Albumin 3.5 g/dL (3.4-5.0); Alkaline Phosphatase 122 U/L (46-116); Anion Gap 7.1 mmol/L (3-11); BUN 7 mg/dL (7-18); Bilirubin, Total 0.4 mg/dL (0.2-1.0); CO2 31.9 mmol/L (21.0-32.0); Calcium 8.7 mg/dL (8.5-10.1); Chloride 104 mmol/L (98-107); Estimated GFR 81.21 (mL/min/1.73m2); Glucose 142 mg/dL (74-106); NT-proBNP 19 pg/mL (<300); Potassium 3.4 mmol/L (3.5-5.1); Sodium 143 mmol/L (136-145); Total Protein 6.7 g/dL (6.4-8.2)
[2025-02-01] MEDS: Potassium Chloride 20 MEQ TABCR 40 MEQ PO (12:23)
== END 2025-02-01 12:40 | disposition home or self-care (01) ==
PROVIDERS: Emergency Provider Student in an Organized Health Care Education/Training Program; PCP Internal Medicine
DX: L03.116 Cellulitis of left lower limb (principal); R60.0 Localized edema
CPT/HCPCS: 36415; 80053; 96374; 99284; 71045; 83880; 85025; J1938